=== PATIENT | male | born 1955 | race Two or more races ===

== ENCOUNTER → 2020-01-26 14:44 | Outpatient (BNV) | payer MEDICARE, MEDICAID, SELFPAY | PROVIDERS: PCP Internal Medicine; Visit Provider Internal Medicine | DX: D51.9 Vitamin B12 deficiency anemia, unspecified (principal); E87.6 Hypokalemia; E83.52 Hypercalcemia | CPT/HCPCS: 99213; 99214; G2211 ==

== ENCOUNTER 2021-02-03 09:31 | Outpatient (REF) | payer MEDICARE, MEDICAID, SELFPAY ==
--- NOTE | ~2021-02-03 | CT_ITS ---
EXAMINATION: CT ANGIOGRAM CHEST CLINICAL INFORMATION: Follow-up thoracic aorta aneurysm. COMPARISON: CT angiography chest from 02/06/2018 and 02/17/2019. TECHNIQUE: Multiple axial images were obtained through the chest after the administration of 70 mL of Omnipaque 350 intravenous contrast. Extensive vascular post-processing including two-dimensional and three-dimensional reformatted images were created and reviewed on an independent workstation under concurrent physician supervision and then uploaded into the electronic picture archive. This CT examination was performed using dose optimization techniques as appropriate, variously including the following: *Automated exposure control *Adjustment of mA and/or kV according to patient size (this includes techniques or standardized protocols for targeted exams where dose is matched to indication/reason for exam; i.e. extremities or head) *Use of iterative reconstruction technique DLP: 113 mGy-cm FINDINGS: LUNGS AND PLEURA: Trachea and central airways are widely patent and normal in caliber. Solid noncalcified 0.3 cm nodules of the right lower lobe are unchanged (images 263 and 269, series 7). A stable 0.3 cm wide nodular focus along the right major fissure is likely a perifissural lymph node (image 259, series 7). A new cluster of 0.3 to 0.4 cm nodules in the left upper lobe has subtle surrounding haziness; findings are likely sequela of infectious or noninfectious inflammation of small airways/bronchiolitis (images 157-163, series 7). No interval development of a suspicious lung nodule or mass. No interstitial lung disease, consolidation or pleural effusion. HEART AND PULMONARY ARTERIES: The heart size is normal. Mild to moderate atherosclerotic calcification of coronary arteries. No pericardial effusion. Pulmonary arteries are unremarkable. THORACIC AORTA: There is atherosclerotic calcification of the aorta. No intramural hematoma or dissection. The great vessels arising from the top of the aortic arch are widely patent. By my measurements, the thoracic aorta remains unchanged in size compared to 02/17/2019. The following aortic measurements are obtained: Sinus of Valsalva: 3.8 cm Sinotubular junction: 3.5 cm Ascending aorta: 4 cm transverse, 3.9 cm AP Mid aortic arch: 2.8 cm Proximal descending aorta: 3.9 cm Distal descending aorta: 2.5 cm MEDIASTINUM AND LOWER NECK: Esophagus is unremarkable. No mediastinal mass. Thyroid gland is slightly heterogeneous. No evidence of a clinically significant thyroid nodule. LYMPHATICS: No axillary or internal mammary lymphadenopathy. No pathologic sized mediastinal or hilar lymph nodes. UPPER ABDOMEN: The visualized abdominal aorta is normal in caliber. The common hepatic artery has an independent origin separate from the celiac trunk. Adrenal glands are normal. Gallbladder contains several small calcified stones. SKELETAL AND CHEST WALL: No chest wall mass. No suspicious osseous lesion. No acute findings in the degenerated thoracic spine. CT/CT angio chest aorta IMPRESSION: * The ascending thoracic aorta is unchanged in size (4 cm diameter). 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 No interval aortic enlargement compared to 02/17/2019. * There are stable 0.3 cm nodules in the left lower lobe. A new small cluster of left upper lobe nodules is likely secondary to bronchiolitis. No interval development of a suspicious nodule, mass or lymphadenopathy. Based on Fleischner Society guidelines, chest CT follow-up is not required in a low-risk patient and is considered optional at 12 months in a high risk patient. * Cholelithiasis.
[2021-02-03] MEDS: iohexoL 350 MG/ML 100 ML INFUS..BTL IV (10:46)
== END 2021-02-03 09:32 | disposition home or self-care (01) ==
LOC: HO.CT 09:31
PROVIDERS: Visit Provider Internal Medicine
DX: I71.2 Thoracic aortic aneurysm, without rupture (principal); R91.8 Other nonspecific abnormal finding of lung field; K80.20 Calculus of gallbladder without cholecystitis without obstruction
CPT/HCPCS: 71275; Q9967

== ENCOUNTER 2022-03-08 10:14 | Outpatient (REF) | payer MEDICARE, MEDICAID, SELFPAY ==
--- NOTE | ~2022-03-08 | XR_ITS ---
EXAMINATION: XR HAND, RIGHT CLINICAL INFORMATION: Swelling of right middle finger COMPARISON: None TECHNIQUE: PA, lateral, and oblique views of the right hand. FINDINGS: There is loss of PIP and DIP joint space without periarticular spurring of bony erosive changes. The MCP and intercarpal joint spaces are maintained normal. There is a negative ulnar variance. Minimal soft tissue swelling PIP joints second through fifth digit and entire third digit. No acute fracture or dislocation. XR/XR hand RT min 3V IMPRESSION: 1. Minimal soft tissue swelling PIP joints second through fifth digit. No visible acute fracture or dislocation seen. 2. Mild degenerative changes PIP and DIP joints.
== END 2022-03-08 10:15 | disposition home or self-care (01) ==
LOC: HO.XRAY 10:14
PROVIDERS: PCP Internal Medicine; Visit Provider Emergency Medicine
DX: M79.89 Other specified soft tissue disorders (principal)
CPT/HCPCS: 73130

== ENCOUNTER 2022-06-02 07:12 | Outpatient (REF) | payer MEDICARE, MEDICAID, SELFPAY ==
--- NOTE | ~2022-06-02 | CT_ITS ---
EXAMINATION: CT ANGIOGRAM CHEST CLINICAL INFORMATION: Ascending aortic aneurysm. COMPARISON: CTA chest 02/17/2019. TECHNIQUE: Multiple axial images were obtained through the chest after the administration of 50 mL of Omnipaque 350 intravenous contrast. 3D POSTPROCESSIN-D MIP images were processed from the initial data set by the charge histotechnologist on the technologist workstation under concurrent physician supervision. This CT examination was performed using dose optimization techniques as appropriate, variously including the following: *Automated exposure control *Adjustment of mA and/or kV according to patient size (this includes techniques or standardized protocols for targeted exams where dose is matched to indication/reason for exam; i.e. extremities or head) *Use of iterative reconstruction technique DLP: 124 mGy-cm FINDINGS: The ascending aorta measures maximum of 4.1 x 4.0 cm, stable. The aortic arch measures a maximum of 2.6 x 2.9 cm, stable. The proximal descending aorta at the level of the ductus measures 3.9 x 3.8 cm, stable. The distal descending aorta and proximal abdominal aorta are normal in caliber. Three-vessel aortic arch with mild atherosclerosis at the origin of the left subclavian artery. There is mild atherosclerosis in the descending aorta and upper abdominal aorta. The included gastrosplenic and hepatic artery origins are patent. The SMA origin is patent. The bilateral renal artery origins are patent. No suspicious pulmonary nodules. No mediastinal adenopathy. No pericardial effusion. The upper abdomen is unremarkable. Degenerative changes in the spine. No suspicious osseous lesions. CT/CT angio chest aorta IMPRESSION: Stable ascending aortic aneurysm measuring 4.1 x 4.0 cm. Stable descending aortic aneurysm measuring 3.9 x 3.8 cm. Fleischner guidelines were followed.
[2022-06-02] MEDS: iohexoL 350 MG/ML 100 ML INFUS..BTL IV (08:19)
[2022-06-02 10:27] LABS: Creatinine POC 0.5 mg/dL (0.5-1.4); GFR POC > 60
== END 2022-06-02 07:13 | disposition home or self-care (01) ==
LOC: HO.CT 07:12
PROVIDERS: Visit Provider Internal Medicine
DX: I71.21 Aneurysm of the ascending aorta, without rupture (principal)
CPT/HCPCS: 71275; 82565; Q9967

== ENCOUNTER 2023-06-19 13:21 | Outpatient (REF) | payer MEDICARE, MEDICAID, SELFPAY ==
[2023-06-19 17:11] LABS: Alanine Aminotransferase 11 U/L (0-40); Albumin Level 4.3 g/dL (3.5-5.0); Alkaline Phosphatase 38 U/L (39-117); Anion Gap 16 (12-20); Aspartate Amino Transferase 13 U/L (5-37); Bilirubin Direct 0.4 mg/dL (0.0-0.5); Bilirubin Total 1.3 mg/dL (0.0-1.0); Blood Urea Nitrogen 10 mg/dL (9-16); Calcium 9.8 mg/dL (8.4-10.2); Carbon Dioxide 31 mmol/L (22-29); Chloride 96 mmol/L (96-108); Cholesterol 127 mg/dL (<200); Estimated Glomerular Filt Rate > 60; Glucose Random 175 mg/dL (60-115); HDL Cholesterol 30 mg/dL (>40); LDL Cholesterol Calculated 66 mg/dL (<100); Potassium 3.8 mmol/L (3.3-5.1); Sodium 139 mmol/L (135-145); Total Protein 7.3 g/dL (6.5-8.0); Triglycerides 158 mg/dL (<150)
[2023-06-19 17:52] LABS: Prostate Specific Antigen 12.57 ng/mL (<0.05-4.0)
[2023-06-19 19:44] LABS: Creatinine Urine 137.18 mg/dL; Microalbum/Creatinine Ratio Ur 15.3 ug/mg cr (<30)
[2023-06-19 19:44] LABS: Reflex LDLD? No
== END 2023-06-19 13:22 | disposition home or self-care (01) ==
LOC: HO.HHCL 13:21
PROVIDERS: Visit Provider Internal Medicine
DX: Z00.00 Encounter for general adult medical examination without abnormal findings (principal); Z12.5 Encounter for screening for malignant neoplasm of prostate; E11.9 Type 2 diabetes mellitus without complications; I10 Essential (primary) hypertension
CPT/HCPCS: 36415; 80048; 80061; 80076; 82043; 82570; 84153

== ENCOUNTER 2023-07-24 10:03 | Outpatient (AMB) | payer MEDICARE, MEDICAID, SELFPAY ==
--- NOTE | 2023-07-24 11:38 | MHC.OFFVIS ---
Intake Visit Reasons: Elevated PSA Intake Note: New Patient is present for Elevated PSA Director Of Estate Required: Yes Director Of Estate Language: Macedonian Allergies No Known Allergies Allergy (Verified 09/06/23 10:25) HPI Comments Details: Paul is a pleasant Macedonian-speaking male. He is a patient of Dr. Grimes. He is seen for the following urologic conditions - elevated PSA Macedonian translation provided by qualified electromedical service engineer Elevated PSA 07/05 12.5 Suggest repeat PSA and bladder ultrasound PFS Medical History Thoracic aortic aneurysm (TAA) Depression Hyperlipemia HTN (hypertension) Diabetes Anemia Family History Sister Breast cancer Social History Household Members: None Housing: Apartment Are you a primary day care home provider to a significant other at home: No Do you presently have visiting nurse or other home services: No Alcohol intake: former Patient Tobacco Use Status: Never used Tobacco service: No Current occupational status: disabled Review of Systems Const Denies chills and Denies fever(s) Card Reports no additional complaints and Denies syncope Resp Denies cough GI Denies abdominal pain and Denies heartburn Reports as per HPI and Denies change in libido Neuro Denies syncope Psych Denies change in libido Endo Denies change in libido Physical Exam Const General: cooperative, healthy appearing, comfortable and no acute distress Orientation/consciousness: patient oriented x3 HEENT Face and sinus: Yes normal facial exam Mouth: moist mucous membranes Neck Neck: Yes normal visual inspection, Yes full ROM and Yes trachea midline Chest Chest palpation & inspection: normal inspection of the chest Resp Effort & Inspection: normal respiratory effort, able to speak in complete sentences and no respiratory distress GI Inspection: Yes normal to inspection Back/Spine/Pelvis Cervical Spine: normal cervical lordosis Thoracic/Lumbar Spine: thoracic and lumbar spine normal to inspection Skin General skin exam: no rashes or lesions noted Neuro General: patient oriented x3, gait normal, tone normal and moves all extremities Extrem General: Yes normal to inspection and Yes capillary refill normal Assessment & Plan Assessment & Plan (1) Elevated PSA: Code(s): R97.20 - Elevated prostate specific antigen [PSA] Category: Medical Plan Bladder ultrasound Repeat PSA Start finasteride Orders: Orders US bladder 07/24/23 R39.12 - Poor urinary stream, R97.20 - Elevated prostate specific antigen [PSA] PSA,Total (Free>4and<10) 07/27/23 R97.20 - Elevated prostate specific antigen [PSA] Medications: New finasteride 5 mg PO DAILY 90 tabs 1RF 90 days R97.20 - Elevated prostate specific antigen [PSA], N40.1 - Benign prostatic hyperplasia with lower urinary tract symptoms, N13.8 - Other obstructive and reflux uropathy, R33.9 - Retention of urine, unspecified Patient Instructions: Imaging studies, laboratory and physical exam results were discussed and reviewed in detail. No major barriers to patient understanding were identified. An opportunity to ask questions regarding the treatment plan was provided. All questions were answered. The patient expressed understanding and agreement with the above treatment plan. The patient is aware they should contact our office by phone for worsening of their current condition or the appearance of new urologic symptoms. Compliance is encouraged with any medications and followup testing that is ordered. It is a privilege to participate in the urologic care of your patient. If you have any questions or concerns regarding treatment for the above conditions, or other urologic issues, please do not hesitate to contact me. The office telephone contact is [phone]. This note is constructed using voice recognition software. While every effort has been made to ensure accuracy compensation associate errors may have been included. Yours sincerely, Dr Lm Rico MD, MON[facility] - Urology Providers of Expert, Compassionate Care for the Genitourinary System Coding Level of Care Code New Pt Level 4 (02807) Diagnoses Elevated PSA R97.20
== END 2023-07-24 12:14 | disposition home or self-care (01) ==
PROVIDERS: PCP Internal Medicine; Visit Provider Urology
DX: R97.20 Elevated prostate specific antigen [PSA] (principal)
CPT/HCPCS: 99204

== ENCOUNTER → 2023-07-24 10:03 | Outpatient (BNVA) | payer MEDICARE, MEDICAID, SELFPAY | PROVIDERS: PCP Internal Medicine; Visit Provider Urology | DX: R97.20 Elevated prostate specific antigen [PSA] (principal) | CPT/HCPCS: 99202 ==

== ENCOUNTER 2023-07-27 10:08 | Outpatient (REF) | payer MEDICARE, MEDICAID, SELFPAY | END 2023-07-27 10:09 | disposition home or self-care (01) | LOC: HO.10HDL 10:08 | PROVIDERS: Visit Provider Urology | DX: R97.20 Elevated prostate specific antigen [PSA] (principal); Z12.5 Encounter for screening for malignant neoplasm of prostate | CPT/HCPCS: 36415; 84153 ==

== ENCOUNTER 2023-08-23 10:31 | Outpatient (REF) | payer MEDICARE, MEDICAID, SELFPAY ==
--- NOTE | ~2023-08-23 | US_ITS ---
EXAMINATION: US PELVIS LIMITED (BLADDER) CLINICAL INFORMATION: Poor urinary stream. COMPARISON: None available. TECHNIQUE: Real-time imaging of the bladder. FINDINGS: BLADDER: Well distended and normal. Bilateral ureteral jets are demonstrated. Prevoid bladder volume is 174 mL. Postvoid bladder volume is 71.3 mL. The prostate volume is normal at 16.8 mL. US/US bladder IMPRESSION: Normal-appearing bladder and normal volume prostate with 71.3 mL postvoid residual.
== END 2023-08-23 10:32 | disposition home or self-care (01) ==
LOC: HO.US 10:31
PROVIDERS: PCP Internal Medicine; Visit Provider Urology
DX: R39.12 Poor urinary stream (principal); R97.20 Elevated prostate specific antigen [PSA]
CPT/HCPCS: 76857

== ENCOUNTER 2023-09-06 10:06 | Outpatient (AMB) | payer MEDICARE, MEDICAID, SELFPAY ==
--- NOTE | 2023-09-06 10:23 | A.OFFVIS_ITS ---
Intake Visit Reasons: 6W PSA/US/PVR(Set) Elevated Intake Note: Patient is present for 6w PSA/US/PVR Urology Medication:FINASTERIDE,VITAMIN B12 Antibiotic Allergy:NONE Blood Thinner:ASPIRIN Button Machine Operator Required: Yes Allergies No Known Allergies Allergy (Verified 09/06/23 10:25) HPI Comments Details: Paul is a pleasant Polish-speaking male. He is a patient of Dr. Grimes. He is seen for the following urologic conditions - elevated PSA Polish translation provided by qualified medical language specialist Discussed repeat findings Recommend prostate biopsy Elevated PSA 07/05 12.5 Repeat PSA 15.8 [facility] Medical History Thoracic aortic aneurysm (TAA) Depression Hyperlipemia HTN (hypertension) Diabetes Anemia Family History Sister Breast cancer Social History Household Members: None Housing: Apartment Are you a primary human services care specialist to a significant other at home: No Do you presently have visiting nurse or other home services: No Alcohol intake: former Patient Tobacco Use Status: Never used Tobacco service: No Current occupational status: disabled Review of Systems Const Denies chills and Denies fever(s) Card Reports no additional complaints and Denies syncope Resp Denies cough GI Denies abdominal pain and Denies heartburn Reports as per HPI and Denies change in libido Neuro Denies syncope Psych Denies change in libido Endo Denies change in libido Physical Exam Const General: cooperative, healthy appearing, comfortable and no acute distress Orientation/consciousness: patient oriented x3 HEENT Face and sinus: Yes normal facial exam Mouth: moist mucous membranes Neck Neck: Yes normal visual inspection, Yes full ROM and Yes trachea midline Chest Chest palpation & inspection: normal inspection of the chest Resp Effort & Inspection: normal respiratory effort, able to speak in complete sentences and no respiratory distress GI Inspection: Yes normal to inspection Back/Spine/Pelvis Cervical Spine: normal cervical lordosis Thoracic/Lumbar Spine: thoracic and lumbar spine normal to inspection Skin General skin exam: no rashes or lesions noted Neuro General: patient oriented x3, gait normal, tone normal and moves all extremities Extrem General: Yes normal to inspection and Yes capillary refill normal Results AMB Urinalysis, Automated UA Leukoctes 0 Kaiden/uL Last Edit by ZAC Tate on 09/06/23 11:13 UA Nitrite Negative Last Edit [facility] on 09/06/23 11:13 UA Urobilinogen 0.2 mg/dL Last Edit by Jim Rae [facility] on 09/06/23 11:1 3 UA Protein 15 mg/dL Last Edit by Jim Rae [facility] on 09/06/23 11:13 UA pH 8.0 Last Edit by Jim Rae [facility] on 09/06/23 11:13 UA Blood 0 Steve/uL Last Edit by Jim Rae [facility] on 09/06/23 11:13 UA Specific [place] 1.005 Last Edit by Jim Rae [facility] on 09/06/23 11: 13 UA Ketone Negative Last Edit by Jim Rae [facility] on 09/06/23 11:13 UA Bilirubin 0 mg/dL Last Edit by Jim Rae [facility] on 09/06/23 11:13 UA Glucose 0 mg/dL Last Edit by Jim Rae [facility] on 09/06/23 11:13 Results Reviewed Results Reviewed: Laboratory Last Values Urine pH (Auto) 8.0 09/06/23 11:12 Specific [place] (Auto) 1.005 09/06/23 11:12 Urine Protein (Auto) 15 mg/dL 09/06/23 11:12 Glucose (UA)(Auto) 0 mg/dL 09/06/23 11:12 Urine Ketones (Auto) Negative 09/06/23 11:12 Urine Blood (Auto) 0 Steve/uL 09/06/23 11:12 Urine Nitrite (Auto) Negative 09/06/23 11:12 Urine Bilirubin (Auto) 0 mg/dL 09/06/23 11:12 Urine Urobilinogen (Auto) 0.2 mg/dL 09/06/23 11:12 Leukocyte Esterase (Auto) 0 [place]/uL 09/06/23 11:12 Assessment & Plan Assessment & Plan (1) Elevated PSA: Code(s): R97.20 - Elevated prostate specific antigen [PSA] Category: Medical Plan Risks and benefits regarding trans rectal ultrasound with prostate biopsy were discussed. Options of continued surveillance, no treatment and biopsy were offered. The risks include but are not limited to, urinary tract infection, sepsis, difficulty urinating, bleeding into the rectum or bladder that requires intervention and transfusion,and failure to diagnose prostate cancer. The patient understands the options and the risks involved. They wish to proceed. Printed information was provided to ensure he remains off anticoagulation for the appropriate length of time. He may require cardiology or PCP clearance. An antibiotic will be administered prior to, and following the procedure Orders: Orders AMB Urinalysis Automated Today Z13.9 - Encounter for screening, unspecified Medications: New levofloxacin take 1 tablet day before procedure, 1 tablet day of procedure and 1 tablet day after procedure 500 mg PO daily 3 days 3 tabs 0RF R97.20 - Elevated prostate specific antigen [PSA] Patient Instructions: Imaging studies, laboratory and physical exam results were discussed and reviewed in detail. No major barriers to patient understanding were identified. An opportunity to ask questions regarding the treatment plan was provided. All questions were answered. The patient expressed understanding and agreement with the above treatment plan. The patient is aware they should contact our office by phone for worsening of their current condition or the appearance of new urologic symptoms. Compliance is encouraged with any medications and followup testing that is ordered. It is a privilege to participate in the urologic care of your patient. If you have any questions or concerns regarding treatment for the above conditions, or other urologic issues, please do not hesitate to contact me. The office telephone contact is [phone]. This note is constructed using voice recognition software. While every effort has been made to ensure accuracy insurance underwriter sales errors may have been included. Yours sincerely, Dr Lm Rico MD, MONI[facility] - Urology Providers of Expert, Compassionate Care for the Genitourinary System Coding Level of Care Code Est Pt Level 4 (63891) Diagnoses Elevated PSA R97.20
== END 2023-09-06 11:26 | disposition home or self-care (01) ==
PROVIDERS: PCP Internal Medicine; Visit Provider Urology
DX: R97.20 Elevated prostate specific antigen [PSA] (principal); Z13.9 Encounter for screening, unspecified
CPT/HCPCS: 99214

== ENCOUNTER → 2023-09-06 10:06 | Outpatient (BNVA) | payer MEDICARE, MEDICAID, SELFPAY | PROVIDERS: PCP Internal Medicine; Visit Provider Urology | DX: R97.20 Elevated prostate specific antigen [PSA] (principal) | CPT/HCPCS: 81003; 99212 ==

== ENCOUNTER 2023-10-11 06:45 | Outpatient (REF) | payer MEDICARE, MEDICAID, SELFPAY ==
--- NOTE | 2023-10-11 08:31 | P.OP_ITS ---
Operative Note Operative Note Date of Service: 10/11/23 Narrative: Preoperative diagnosis: Elevated PSA Postoperative diagnosis: Elevated PSA Procedure: 1. transrectal ultrasound measurement of prostate 2. transrectal ultrasound-guided pudendal nerve block 3. transrectal ultrasound-guided prostate biopsy 12 core Surgeon: Dr. Lm Rico Anesthetic: 10cc 1% lidocaine Indications for procedure: Elevated PSA 16 Counselling: Technical aspects, risks and benefits of proposed procedure were discussed in full. All questions have been answered, written consent has been obtained and patient agrees to proceed. Procedure: The patient was brought into the procedure area and placed in a left lateral decubitus position. Patient identity confirmed. Perioperative antibiotics confirmed. Safety pause time out performed. JEROME was performed to dilate rectal sphincter Iodine 10cc with 60 cc gel was placed per rectum to reduce infection risk using a catheter tip syringe. 8 Hz [place] rectal end-fire ultrasound probe was placed transrectally without difficulty. The prostate was visualized. Seminal vesicles were normal. Prostate margins were clearly demarcated. Bladder was seen superiorly. No cystic structures were noted Calcifications were noted at the surgical margin The prostate was otherwise heterogenous in nature - clear demarcation with peripheral zone The prostate was measured in 3 dimensions Prostatic Width: 4.3 cm Prostatic Height: 3.6 cm Urethral Length: 4.2 cm Total volume equals : 35 ml An ultrasound-guided pudendal nerve block was performed using a 22 gauge spinal needle in the sagittal plane. 4 cc of 1% lidocaine placed at the junction of each seminal vesicle and 2 cc placed at the apex of the prostate. A 12 core biopsy was performed with 6 cores each side using an 18 gauge prostate biopsy gun. Two cores each were taken at the prostate apex, mid and base on each side. Cores were spaced between lateral and medial aspects. Each core was examined as placed on specimen foam as part of senior quality control inspector to ensure a minimum 1 cm of length and minimal discontinuity. He tolerated the procedure well with minimal rectal bleeding. Blood pressure remained stable following procedure. He was able to ambulate to bathroom after 5 minutes. Printed instructions regarding antibiotic use and common adverse events from the procedure such as low-grade temperature, potential infection and bleeding were given. He understands to call the office or go to an emergency room should any of these events arise. Pathology: 12 core prostate biopsy. CPT code 01493: Transrectal ultrasound; this is a diagnostic test for evaluation of the prostate and surrounding structures, looking for abnormalities or suspicious areas worrisome for cancer CPT code 03319: Biopsy, prostate; needle or punch, single or multiple, any approach CPT code 37336: Ultrasonic guidance for needle placement (eg, biopsy, aspiration, injection, localization device), imaging supervision and interpretation
[2023-10-11] MEDS: Lidocaine HCl 1 % 20 ML VIAL 10 ML SUBCUT (08:51)
== END 2023-10-11 06:46 | disposition home or self-care (01) ==
LOC: HO.US 06:45
PROVIDERS: PCP Internal Medicine; Visit Provider Urology
DX: R97.20 Elevated prostate specific antigen [PSA] (principal)
CPT/HCPCS: 55700; 76942; 88305; 88344

== ENCOUNTER → 2023-10-11 06:45 | Outpatient (BNV) | payer MEDICARE, MEDICAID, SELFPAY | PROVIDERS: PCP Internal Medicine; Visit Provider Urology | DX: R97.20 Elevated prostate specific antigen [PSA] (principal) | CPT/HCPCS: 55700; 76872; 76942 ==

== ENCOUNTER 2023-10-25 12:01 | Outpatient (AMB) | payer MEDICARE, MEDICAID, SELFPAY ==
--- NOTE | 2023-10-25 12:31 | MHC.OFFVIS ---
Intake Visit Reasons: Prostate biopsy results Intake Note: Patient is present for Biopsy results Urology Med: Finasteride Antibiotic Allergy: None Blood Thinner: None Rail Transportation Operator Required: Yes Rail Transportation Operator Language: Czech Accompanied by: Self / Same As Patient Allergies No Known Allergies Allergy (Verified 10/25/23 12:33) Medication List - Last Reconciled 10/25/23 by Lm Rico MD amlodipine 1 tab PO DAILY ascorbic acid (vitamin C) (Vitamin C) 1 tab PO DAILY aspirin 1 tab PO DAILY carvedilol 1 tab PO BID cyanocobalamin (vitamin B-12) (Vitamin B-12) 1,000 mcg PO DAILY finasteride 5 mg PO DAILY 90 days glipizide ER 1 tab PO QAM hydrochlorothiazide 1 tab PO DAILY lisinopril 1 tab PO DAILY metformin 1 tab PO BID mineral oil-hydrophil petrolat (DermaPhor topical ointment) 1 appl topical DIRECTED pantoprazole 1 tab PO DAILY peg [id number] 1-0.2-0.2 % (Artificial Tears ([id number])) 1 drp ophthalmic (eye) TID-QID pioglitazone 1 tab PO DAILY pravastatin 1 tab PO DAILY sertraline 1 tab PO QAM trazodone 1 tab PO BEDTIME PRN HPI Comments Details: Paul is a pleasant Czech-speaking male. He is a patient of Dr. Grimes. He is seen for the following urologic conditions - elevated PSA Czech translation provided by qualified director of medical review Here for discussion of biopsy results Biopsy negative Continue finasteride Six-month follow-up PSA Elevated PSA 07/05 12.5 Repeat PSA 15.8 Prostate biopsy - 10/05 acute and chronic inflammation [facility] Medical History Thoracic aortic aneurysm (TAA) Depression Hyperlipemia HTN (hypertension) Diabetes Anemia Family History Sister Breast cancer Social History Household Members: None Housing: Apartment Are you a primary resident care aide to a significant other at home: No Do you presently have visiting nurse or other home services: No Alcohol intake: former Patient Tobacco Use Status: Never used Tobacco service: No Current occupational status: disabled Review of Systems Const Denies chills and Denies fever(s) Card Reports no additional complaints and Denies syncope Resp Denies cough GI Denies abdominal pain and Denies heartburn Reports as per HPI and Denies change in libido Neuro Denies syncope Psych Denies change in libido Endo Denies change in libido Physical Exam Const General: cooperative, healthy appearing, comfortable and no acute distress Orientation/consciousness: patient oriented x3 HEENT Face and sinus: Yes normal facial exam Mouth: moist mucous membranes Neck Neck: Yes normal visual inspection, Yes full ROM and Yes trachea midline Chest Chest palpation & inspection: normal inspection of the chest Resp Effort & Inspection: normal respiratory effort, able to speak in complete sentences and no respiratory distress GI Inspection: Yes normal to inspection Back/Spine/Pelvis Cervical Spine: normal cervical lordosis Thoracic/Lumbar Spine: thoracic and lumbar spine normal to inspection Skin General skin exam: no rashes or lesions noted Neuro General: patient oriented x3, gait normal, tone normal and moves all extremities Extrem General: Yes normal to inspection and Yes capillary refill normal Assessment & Plan Assessment & Plan (1) Elevated PSA: Code(s): R97.20 - Elevated prostate specific antigen [PSA] Category: Medical Plan Six-month follow-up PSA Orders: Orders PSA,Total (Free>4and<10) 6 Months R97.20 - Elevated prostate specific antigen [PSA] Patient Instructions: Imaging studies, laboratory and physical exam results were discussed and reviewed in detail. No major barriers to patient understanding were identified. An opportunity to ask questions regarding the treatment plan was provided. All questions were answered. The patient expressed understanding and agreement with the above treatment plan. The patient is aware they should contact our office by phone for worsening of their current condition or the appearance of new urologic symptoms. Compliance is encouraged with any medications and followup testing that is ordered. It is a privilege to participate in the urologic care of your patient. If you have any questions or concerns regarding treatment for the above conditions, or other urologic issues, please do not hesitate to contact me. The office telephone contact is [phone]. This note is constructed using voice recognition software. While every effort has been made to ensure accuracy customer solutions teammate errors may have been included. Yours sincerely, Dr Lm Rico MD, [facility] - Urology Providers of Expert, Compassionate Care for the Genitourinary System Coding Level of Care Code Est Pt Level 3 (48173) Diagnoses Elevated PSA R97.20
== END 2023-10-25 14:29 | disposition home or self-care (01) ==
PROVIDERS: PCP Internal Medicine; Visit Provider Urology
DX: R97.20 Elevated prostate specific antigen [PSA] (principal)
CPT/HCPCS: 99213

== ENCOUNTER → 2023-10-25 12:01 | Outpatient (BNVA) | payer MEDICARE, MEDICAID, SELFPAY | PROVIDERS: PCP Internal Medicine; Visit Provider Urology | DX: R97.20 Elevated prostate specific antigen [PSA] (principal); Z71.2 Person consulting for explanation of examination or test findings | CPT/HCPCS: 99212 ==

== ENCOUNTER → 2024-02-22 12:09 | Outpatient (REF) | payer MEDICARE, MEDICAID, SELFPAY ==
--- NOTE | 2024-02-22 12:15 | CA_ITS ---
Transthoracic Echocardiogram Patient (Last, First, Middle): Paul Alonso, Gender: Male Date of : 1955 Age: 68 Procedure Date: 02/22/2024 Procedure Type: Transthoracic Echocardiogram Location: OP Height: 160.02 cm Weight: 57.61 kg BSA: 1.59 m2 Heart Rate: 72 bpm BP: 145 / 82 mmHg Chiseler Head: SB Referring MD: Balaji Sanderson MD Symptoms: R55 SYNCOPE Study Quality: Adequate ECG Rhythm: Sinus Conclusions: - The left ventricular systolic function is normal. The calculated ejection fraction is 66% by biplane method. - No obvious valvular pathology seen on this study. - There is mild dilatation of the ascending aorta measuring 4.20 cm. Findings Left Ventricle Normal left ventricular cavity size. There is normal left ventricular wall thickness. The left ventricular systolic function is normal. The calculated ejection fraction is 66% by biplane method. There is no evidence of regional wall motion abnormalities. Diastolic function is normal for age. Right Ventricle Mildly increased right ventricular cavity size. There is normal right ventricular systolic function. Atria Both atria are normal in size. Aortic Valve There is a normal trileaflet aortic valve. There is no aortic valve stenosis. Trace to mild aortic regurgitation. Mitral Valve The mitral valve appears normal. There is no mitral valve regurgitation. There is no mitral valve stenosis. Pulmonic Valve The pulmonic valve is likely normal. Tricuspid Valve There is trace tricuspid valve regurgitation. There is no evidence of pulmonary hypertension. Great Vessels There is mild dilatation of the ascending aorta measuring 4.20 cm. Venous The inferior vena cava is normal in size and collapses greater than 50% with inspiration. Pericardium/Pleural There is no evidence of pericardial effusion. Prior Study Comparison No prior study available for comparison. Recommendations, Care & Conclusions No obvious valvular pathology seen on this study. Measurements 2D Linear Measurements IVSd: 0.76 0.6-0.9/0.6-1.0 cm LVIDd: 4.71 3.9-5.3/4.2-5.9 cm LVIDd Index: 2.96 2.4-3.2/2.2-3.1 cm/m2 LVIDs: 3.22 2.0-3.6 cm LVPWd: 0.62 0.7-1.1 cm LA Diam: 2.60 2.7-3.8/3.0-4.0 cm LAIDs Index: 1.64 1.5-2.3 cm/m2 LV Mass: 126.12 67-162/88-224 g LV Mass Index: 79.32 43-95/49-115 g/m2 LVOT Diam: 2.10 3.0+(-)1.3 cm 2D Systolic Function EF 4C: 67.00 >55% EF 2C: 61.80 >55% EF BiP: 65.60 >55% Mitral Valve MV Pk E: 0.69 MV PK A: 0.78 MV Decel Time: 234.00 E/A: 0.90 E'Lateral: 6.96 E'Medial: 4.90 E/E' Med: 14.00 E/E' Lat: 9.90 PHT: 68.00 MVA PHT: 3.24 Decel Pacific: 2.93 Aortic Valve AoV Pk Arpan: 1.39 AoV Pk Grad: 8.00 COURT: 2.18 AI Pk Arpan: 3.19 AI Pacific: 1.46 LVOT LVOT Pk Arpan: 0.92 LVOT Mn Arpan: 0.59 LVOT VTI: 0.20 LVOT Pk Grad: 3.00 LVOT Mn Grad: 2.00 LVOT Diam: 2.10 LVOT Area: 3.46 Diastolic Function MV Pk E: 0.69 MV Pk A: 0.78 E/A: 0.90 E'Medial: 4.90 E/E' Med: 14.00 E' Laterial: 6.96 E/E' Lat: 9.90 Right Ventricle TAPSE (mm): 26.90 TVS' Arpan: 13.50 Tricuspid Valve TR Pk Arpan: 2.32 TR Pk Grad: 22.00 RA Press: 3.00 RVSP: 25.00 Great Vessels Aorta Sinus of Valsalva: 3.80 2.0-3.5 cm Ao Asc: 4.20 2.1-3.4 cm Pulmonary Veins Pulm Vein S/D 1.40 Pulmonary Valve PV Pk Arpan: 0.73 Peak PV Grad: 2.00 Updated in Other Vendor System with Status of Final Larry Souza MD electronically signed on 02/23/2024 2:32:04 PM with status of Final
== END ==
LOC: HO.CARD 12:09
PROVIDERS: PCP Internal Medicine; Visit Provider Internal Medicine
DX: R55 Syncope and collapse (principal)
CPT/HCPCS: 93306

== ENCOUNTER → 2024-02-22 12:15 | Outpatient (BNV) | payer MEDICARE, MEDICAID, SELFPAY | PROVIDERS: PCP Internal Medicine; Visit Provider Internal Medicine | DX: I35.1 Nonrheumatic aortic (valve) insufficiency (principal) | CPT/HCPCS: 93306 ==

== ENCOUNTER 2024-04-03 08:20 | Outpatient (REF) | payer MEDICARE, MEDICAID, SELFPAY ==
--- NOTE | ~2024-04-03 | CT_ITS ---
CLINICAL HISTORY: ascending aorta aneurysm follow up CT angiography chest with contrast. 3D Postprocessing. Comparison: 06/02/2022 Findings: Stable heart size. Motion limits accurate evaluation of the aorta. No definite evidence of aortic dissection. Ectatic ascending thoracic aorta measuring up to 43 mm in the axial plane versus 42 mm previously. Ectatic distal aortic arch measuring up to 37 mm in width as before. Enlarged left main pulmonary artery measuring up to 30 mm in width as before. Query pulmonary arterial hypertension. Subcentimeter hypodense right thyroid lobe nodule not definitely seen on prior study. 34 x 35 mm right paratracheal mass versus conglomerate lymphadenopathy, new/mostly new from the prior study (on the prior exam there was s 10 x 8 mm node at this level). The lungs are clear. Gallstones. No acute fracture. IMPRESSION: 34 x 35 mm right paratracheal mass versus conglomerate lymphadenopathy, new/mostly new from the prior study (on the prior exam there was s 10 x 8 mm node at this level). Neoplastic process can not be excluded and appropriate workup recommended. Motion limits accurate evaluation of the aorta. No definite evidence of aortic dissection. Ectatic ascending thoracic aorta measuring up to 43 mm in the axial plane versus 42 mm previously. Ectatic distal aortic arch measuring up to 37 mm in width as before. Query pulmonary arterial hypertension. This document has been electronically signed by: Neelam Acevedo MD on 04/03/2024 12:33:34
--- NOTE | ~2024-04-03 | CT_ITS ---
CLINICAL HISTORY: syncope CT head without contrast Comparison: None Findings: No intra-axial mass, midline shift, hydrocephalus, or acute hemorrhage. Zrpi-ew-mexynbwh age-related cerebral hemispheric white matter changes. 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 Mild opacification of a few of the paranasal sinuses. The orbits are unremarkable. No skull fracture. IMPRESSION: 1. No acute intracranial findings. This document has been electronically signed by: Neelam Acevedo MD on 04/03/2024 10:11:03
--- OUTSIDE RECORDS SUMMARY | 2024-04-03 08:38 | XMS_ITS | Encounter Summary ---
Author Organization [employer] Address [address] [facility] 7t [place] [address] Care Team Providers Care Master Motorcycle Technician Name Role Phone Balaji Quinones MD Primary Care Provide r Kristi Giles PharmD Unavailable [phone] Reason for Visit * Reason Comments Med Refill Encounter Details Date Type Department Care Team (Late st Contact Info) Description 09/17/2022 Refill [facility] [address] [place] [address] Balaji Quinones MD [address] [place] [address] Dry eyes Social History Tobacco Use Types Packs/Day Years Used Date Smoking Tobacco: Never Smokeless Tobacco: Never Alcohol Use Standard Drinks/Week Comments Never 0 (1 standard drink = 0.6 oz pur e alcohol) Sex and Gender Information Value Date Recorded Sex Assigned at Male 12/12/2021 10:18 AM EDT Legal Sex Male 10:18 AM EDT Gender Identity Male 12/12/2021 10:18 AM EDT Sexual Orientation Don't know 12/12/2021 10 :18 AM EDT documented as of this encounter Plan of Treatment Upcoming Encounters Date Type Department Care Team (Late st Contact Info) Description 05/27/2024 1:00 PM EDT Office Visit [facility] [address] [place] [address] Kaci Meadows, OD [address] [place] [address] 06/26/2024 1:15 PM EDT Office Visit [facility] [address] [place] [address] Balaji Quinones MD [address] [place] [id number] documented as of this encounter Goals Goal Patient Goal Type Associated Problems Recent Progress Patient-Stated? Author Blood Pressure < 140/90 Blood Pressure 128/80(2024 11:18 AM EST) No Kristi Giles PharmD Note: Maintain BP less than 140/90 Record your blood pressure once per day Blood Pressure No Kristi Giles PharmD Note: Check BP daily Blood Pressure < 140/90 Blood Pressure Hypertension 128/80(2024 11:18 AM EST) No Kristi Giles PharmD Follow the DASH diet Diet No Kirsti Giles PharmD Note: Look for foods that are low sodium. documented as of this encounter Visit Diagnoses Diagnosis Dry eyes Unspecified tear film insufficiency documented in this encounter Care Teams Master Motorcycle Technician Relationship Specialty Start Date End Date Balaji Quinones MD [address] [place] [phone] PCP - General Internal Medicine 11/25/13 Kristi Giles PharmD [address] [place] [phone] Pharmacist Internal Medicine 01/30/22 documented as of this encounter
--- OUTSIDE RECORDS SUMMARY | 2024-04-03 08:38 | XMS_ITS | Encounter Summary ---
Author Organization [employer] Address [address] [facility] 7t [place] [address] Care Team Providers Care Directory Carrier Name Role Phone Balaji Quinones MD Primary Care Provide r Kristi Giles PharmD Unavailable [phone] Reason for Visit * Reason Comments Med Refill Encounter Details Date Type Department Care Team (Late Contact Info) Description 01/28/2023 Refill [facility] [address] [place] [address] Balaji Quinones MD [address] [place] [address] Social History Tobacco Use Types Packs/Day Years Used Date Smoking Tobacco: Never Passive Smoke Exposure: Never Smokeless Tobacco: Never Alcohol Use Standard Drinks/Week Comments Never 0 (1 standard drink = 0.6 oz pur e alcohol) Sex and Gender Information Value Date Recorded Sex Assigned at Male 12/12/2021 10:18 AM EDT Legal Sex Male 10:18 AM EDT Gender Identity Male 12/12/2021 10:18 AM EDT Sexual Orientation Don't know 12/12/2021 10 :18 AM EDT documented as of this encounter Miscellaneous Notes * Telephone Encounter - Mendoza Donnelly - 01/29/2023 12:27 PM EST Tc from patient requesting the status of Aspirin Low Dose 81 MG EC tablet would like to be filled by 02/02/23 due to the holidays documented in this encounter Plan of Treatment Upcoming Encounters Date Type Department Care Team (Late Contact Info) Description 05/27/2024 1:00 PM EDT Office Visit [facility] [address] [place] [address] Kaci Meadows, OD [address] [place] [address] 06/26/2024 1:15 PM EDT Office Visit [facility] [address] [place] [address] Balaji Quinones MD [address] [place] [address] documented as of this encounter Goals Goal [...] PharmD Follow the DASH diet Diet No Kristi Giles PharmD Note: Look for foods that are low sodium. documented as of this encounter Visit Diagnoses Not on filedocumented in this encounter Care Teams Directory Carrier Relationship Specialty Start Date End Date Balaji Quinones MD [address] [place] [address] PCP - General Internal Medicine 11/25/13 Kristi Giles PharmD [address] [place] [phone] Pharmacist Internal Medicine 01/30/22 documented as of this encounter
--- OUTSIDE RECORDS SUMMARY | 2024-04-03 08:38 | XMS_ITS | Encounter Summary ---
Author Organization [employer] Address [address] [facility] 7[address] [place] [address] Care Team Providers Care Personal Banker Name Role Phone Balaji Quinones MD Primary Care Provide r Kristi Giles PharmD Unavailable [phone] Reason for Visit * Reason Comments Med Refill Encounter Details Date Type Department Care Team ([facility] Contact Info) Description 04/17/2022 Refill [facility] [address] [place] [address] Brook Guerrero MD [address] [place] [address] Other chronic pain Social History Tobacco Use Types Packs/Day Years [...] Don't know 12/12/2021 10 :18 AM EDT COVID-19 Exposure Response Date Recorded In the last 10 days, have yo u been in contact with someone who was confirmed or suspected to have Coronavirus/COVID-19? No / Unsure 04/12/2022 1:50 PM EST documented as of this encounter Plan of Treatment Upcoming Encounters Date Type Department Care Team (Late Contact Info) Description 05/27/2024 1:00 PM EDT Office Visit [facility] OPT[facility] [address] [place] [address] Abdiel, Kaci, OD [address] [place] [address] 06/26/2024 1:15 PM EDT Office Visit [facility] [address] [place] [address] Balaji Quinones MD [address] [place] [address] documented as of this encounter Goals Goal Patient Goal Type Associated Problems Recent Progress Patient-Stated? Author Blood Pressure < 140/90 Blood Pressure 128/80(2024 11:18 AM EST) No Kristi Giles PharmD Note: Maintain BP less than 140/90 Record your blood pressure once per day Blood Pressure No Kristi Giles PharmD Note: Check BP daily Follow the DASH diet Diet No Kristi Giles PharmD Note: Look for foods that are low sodium. documented as of this encounter Visit Diagnoses Diagnosis Other chronic pain documented in this encounter Care Teams Personal Banker Relationship Specialty Start Date End Date Baljai Quinones MD [address] [place] [address] PCP - General Internal Medicine 11/25/13 Kristi Giles PharmD [address] [place] [address] Pharmacist Internal Medicine 01/30/22 documented as of this encounter
--- OUTSIDE RECORDS SUMMARY | 2024-04-03 08:38 | XMS_ITS | Encounter Summary ---
Author Organization [employer] Address [address] [facility] [address]t [place] [address] Care Team Providers Care Software Implementation Project Manager Name Role Phone Balaji Quinones MD Primary Care Provide r Kristi Giles PharmD Unavailable [phone] Reason for Visit * Reason Comments Med Refill Encounter Details Date Type Department Care Team (Late Contact Info) Description 05/11/2022 Refill [facility] [address] [place] [address] Balaji Quinones MD [address] [place] [address] Swelling of right middle finger Social History Tobacco Use Types Packs/Day Years [...] suspected to have Coronavirus/COVID-19? No / Unsure 05/11/2022 1:39 PM EDT documented as of this encounter Plan of Treatment Upcoming Encounters Date Type Department Care Team (Late Contact Info) Description 05/27/2024 1:00 PM EDT Office Visit [facility] OPTOMETRY [address] [place] [address] AbdielKaci yi, OD [address] [place] [address] 06/26/2024 1:15 PM EDT Office Visit [facility] MEDIC[facility] [address] [place], [place] [phone] Balaji Quinones MD [address] [place] [address] documented as of this encounter Goals Goal [...] as of this encounter Visit Diagnoses Diagnosis Swelling of right middle finger documented in this encounter Care Teams Software Implementation Project Manager Relationship Specialty Start Date End Date Balaji Quinones MD [address] [place] [address] [phone] PCP - General Internal Medicine 11/25/13 Kristi Giles PharmD [address] [place] [phone] Pharmacist Internal Medicine 01/30/22 documented as of this encounter
--- OUTSIDE RECORDS SUMMARY | 2024-04-03 08:38 | XMS_ITS | Encounter Summary ---
Author Organization [employer] Address [address] [facility] 7t [place] [address] Care Team Providers Care Torpedo Worker Name Role Phone Balaji Quinones MD Primary Care Provide r Kristi Giles PharmD Unavailable [phone] Encounter Details Date Type Department Care Team ([facility] Contact Info) Description 06/22/2022 Abstract [facility] [address] [place] [address] Balaji Quinones MD [address] [place] [address] Social History Tobacco Use Types Packs/Day Years [...] suspected to have Coronavirus/COVID-19? No / Unsure 06/13/2022 1:39 PM EDT documented as of this encounter Plan of Treatment Upcoming Encounters Date Type Department Care Team ([facility] Contact Info) Description 05/27/2024 1:00 PM EDT Office Visit [facility] OPT[facility] [address] [place] [address] Abdiel, Kaci, OD [address] [place] [address] 06/26/2024 1:15 PM EDT Office Visit [facility] MED[facility] [address] [place] [address] Balaji Quinones MD [address] [place] [address] documented as of this encounter Goals Goal [...] low sodium. documented as of this encounter Procedures Procedure Name Priority Date/Time Associated Diagnosis Comments COLONOSCOPY Routine 07/10/2017 documented in this encounter Results * Colonoscopy (07/10/2017) Colonoscopy Normal Normal 07/10/2017 Narrative Shikha Turner - 07/10/2017 3:47 PM EDT Recommended 10 year [place] ( [facility] [place] Historical Provider HEALTH MAINTENANCE Final Result documented in this encounter Visit Diagnoses Not on filedocumented in this encounter Care Teams Torpedo Worker Relationship Specialty Start Date End Date Balaji Quinones MD [address] [place] [address] PCP - General Internal Medicine 11/25/13 Kristi Giles PharmD [address] [place], [place] [phone] Pharmacist Internal Medicine 01/30/22 documented as of this encounter
--- OUTSIDE RECORDS SUMMARY | 2024-04-03 08:38 | XMS_ITS | Encounter Summary ---
Author Organization [employer] Address [address] [facility] 7t [place] [address] Care Team Providers Care Shelter Advocate Name Role Phone Balaji Quinones MD Primary Care Provide r Kristi Giles PharmD Unavailable [phone] Reason for Visit * Reason Comments Med Refill Encounter Details Date Type Department Care Team ([facility] st Contact Info) Description 03/14/2024 Refill [facility] [address] [place] [address] Balaji Quinones MD [address] [place] [address] Dry eyes Social History Tobacco Use Types Packs/Day Years Used Date Smoking Tobacco: Former Cigarettes Passive Smoke Exposure: Past Smokeless Tobacco: Never Alcohol Use Standard Drinks/Week Comments Never 0 (1 standard drink = 0.6 oz pur e alcohol) Depression Answer Date Recorded Patient Health Questionnaire-9 Score 1 04/19/2023 Patient Health Questionnaire-9 Score 1 04/19/2023 Last PHQ-9: Questionnaire Data Not on file 0 04/19/2023 Housing Stability Answer Date Recorded What is your housing situation today? I have karlie cope 04/19/[address] you li ve. Do you have problems with any of the following? None of the above 04/19/2023 Food Insecurity Answer Date Recorded Within the past 12 months, y ou worried that your food would run out before you got money to buy more: Never True 04/19/2023 Within the past 12 months,th e food you bought just didn't last and you didn't have enough money to get more: Never True 08/2023 Transportation Answer Date Recorded In the past 12 months, has l ack of transportation kept you from medical appts, meetings, work or from getting things needed for daily living? No 04/19/2023 Utilities Answer Date Recorded In the past 12 months, has t he electric, gas, oil or water company threatened to shut off services in your home? No 04/19/2023 Depression Answer Date Recorded Patient Health Questionnaire-2 Score 0 04/19/2023 Sex and Gender Information Value Date Recorded Sex Assigned at Male 12/12/2021 10:18 AM EDT Legal Sex Male 10:18 AM EDT Gender Identity Male 12/12/2021 10:18 AM EDT Sexual Orientation Don't know 12/12/2021 10 :18 AM EDT documented as of this encounter Plan of Treatment Upcoming Encounters Date Type Department Care Team (Late st Contact Info) Description 05/27/2024 1:00 PM EDT Office Visit [facility] [address] [place] [address] Abdiel, Kaci, OD [address] [place] [address] 06/26/2024 1:15 PM EDT Office Visit [facility] [address] [place] [address] Balaji Quinones MD [address] [place] [address] documented as of this encounter Goals Goal [...] 128/80(2024 11:18 AM EST) No Kristi Giles PharmIvan Follow the DASH diet Diet No Kristi Giles PharmD Note: Look for foods that are low sodium. Hemoglobin A1c < 7 Result Component Type 2 diabetes mellitus 6.6( 5 11:31 AM EST) No Kristi Giles, SarayD documented as of this encounter Visit Diagnoses Diagnosis Dry eyes Unspecified tear film insufficiency documented in this encounter Additional Health Concerns Assessment Noted Time PHQ-9 Depression Total Score: 1 04/19/19 24 1:30 PM EST documented as of this encounter Care Teams Shelter Advocate Relationship Specialty Start Date End Date Balaji Quinones MD [address] [place], [place] [phone] PCP - General Internal Medicine 11/25/13 Kristi Giles PharmD [address] [place], [place] [phone] Pharmacist Internal Medicine 01/30/22 documented as of this encounter
--- OUTSIDE RECORDS SUMMARY | 2024-04-03 08:38 | XMS_ITS | Encounter Summary ---
Author Organization [facility] Address [address] [facility] [address]t [place] [address] Care Team Providers Care Vocational Technical Education Teacher Name Role Phone Balaji Quinones MD Primary Care Provide r Kristi Giles PharmD Unavailable [phone] Encounter Details Date Type Department Care Team (Late Contact Info) Description 09/08/2022 [facility] Information Management [address] [place] [address] Balaji Quinones MD [address] [place] [address] Social History Tobacco Use Types Packs/Day Years [...] Description 05/27/2024 1:00 PM EDT Office Visit [facility] [address] [place] [address] Kaci Meadows, OD [address] [place] [address] 06/26/2024 1:15 PM EDT Office Visit [facility] [address] [place] [address] Balaji Quinones MD [address] [place] [address] documented as of this encounter Goals Goal [...] on filedocumented in this encounter Care Teams Vocational Technical Education Teacher Relationship Specialty Start Date End Date Balaji Quinones MD [address] [place] [id number] PCP - General Internal Medicine 11/25/13 Kristi Giles PharmD [address] [place] [address] Pharmacist Internal Medicine 01/30/22 documented as of this encounter
--- OUTSIDE RECORDS SUMMARY | 2024-04-03 08:38 | XMS_ITS | Encounter Summary ---
Author Organization [employer] Address [address] [facility] 7t [place] [address] Care Team Providers Care Meat Market Manager Name Role Phone Balaji Quinones MD Primary Care Provide r Kristi Giles PharmD Unavailable [phone] Reason for Visit * Reason Comments Med Refill Encounter Details Date Type Department Care Team ([facility] st Contact Info) Description 04/19/2023 Refill [facility] [address] [place] [address] Balaji Quinones MD 230 [place] [address] Primary hypertension; Folliculitis Social History Tobacco Use Types Packs/Day Years [...] Description 05/27/2024 1:00 PM EDT Office Visit [facility] OPTOMETRY [address] [place] [address] Abdiel, Kaci, OD 230 [place] [address] 06/26/2024 1:15 PM EDT Office Visit [facility] MEDICINE [address] [place] [address] Balaji Quinones MD [address] [place] [address] documented as of this encounter Goals Goal [...] as of this encounter Visit Diagnoses Diagnosis Primary hypertension Unspecified essential hypertension Folliculitis Other specified disease of hair and hair follicles documented in this encounter Additional Health Concerns Assessment Noted Time PHQ-9 Depression Total Score: 1 04/19/19 24 1:30 PM EST documented as of this encounter Care Teams Meat Market Manager Relationship Specialty Start Date End Date Balaji Quinones MD 230 [place] [address] PCP - General Internal Medicine 11/25/13 Kristi Giles, SarayD 230 [place] [address] Pharmacist Internal Medicine 01/30/22 documented as of this encounter
--- OUTSIDE RECORDS SUMMARY | 2024-04-03 08:38 | XMS_ITS | Encounter Summary ---
Author Organization [employer] Address [address] [facility] [address] 7t [place] [address] Care Team Providers Care Stamp Presser Name Role Phone Balaji Quinones MD Primary Care Provide r Kristi Giles PharmD Unavailable [phone] Reason for Visit * Reason Comments Med Refill Encounter Details Date Type Department Care Team ([facility] st Contact Info) Description 12/24/2023 Refill [facility] 230 [place] [address] Balaji Quinones MD 230 [place] [address] Folliculitis Social History Tobacco Use Types Packs/Day [...] Description 05/27/2024 1:00 PM EDT Office Visit [facility] OPTOMETRY [address] [place] [address] Abdiel, Kaci, OD 230 [place] [address] 06/26/2024 1:15 PM EDT Office Visit [facility] MEDICINE 230 [place] [address] Balaji Quinones MD 230 [place] [address] documented as of this encounter Goals Goal [...] 5 11:31 AM EST) No Kristi Giles, Quentin documented as of this encounter Visit Diagnoses Diagnosis Folliculitis Other specified disease of hair and hair follicles documented in this encounter Additional Health Concerns Assessment Noted Time PHQ-9 Depression Total Score: 1 04/19/19 24 1:30 PM EST documented as of this encounter Care Teams Stamp Presser Relationship Specialty Start Date End Date Balaji Quinones MD 230 [place] [address] PCP - General Internal Medicine 11/25/13 Kristi Giles, SarayD 230 [place] [address] Pharmacist Internal Medicine 01/30/22 documented as of this encounter
--- OUTSIDE RECORDS SUMMARY | 2024-04-03 08:38 | XMS_ITS | Encounter Summary ---
Author Organization [employer] Address 75 [facility] 7t [place] [address] Care Team Providers Care Vehicle Modification Technician Name Role Phone Balaji Quinones MD Primary Care Provide r Kristi Giles PharmD Unavailable [phone] Reason for Visit * Reason Comments Med Refill Encounter Details Date Type Department Care Team (Late Contact Info) Description 03/01/2023 Refill [facility] MEDICINE 230 [place] [address] Balaji Quinones MD 230 [place] [address] Type 2 diabetes mellitus without complication, unspecified whether penitentiary insulin use ([facility]) Social History Tobacco Use Types Packs/Day Years [...] Description 05/27/2024 1:00 PM EDT Office Visit [facility] OPTOMETRY [address] [place] [address] Abdiel, Kaci, OD 230 [place] [address] 06/26/2024 1:15 PM EDT Office Visit [facility] MEDICINE 230 [place] [address] Balaji Quinones MD 230 [place] [address] documented as of this encounter Goals Goal [...] as of this encounter Visit Diagnoses Diagnosis Type 2 diabetes mellitus without complication, unspecified whether parts counterman insulin use ([facility]) documented in this encounter Care Teams Vehicle Modification Technician Relationship Specialty Start Date End Date Balaji Quinones MD [address] [place] [address] PCP - General Internal Medicine 11/25/13 Kristi Giles PharmD [address] [place] [address] Pharmacist Internal Medicine 01/30/22 documented as of this encounter
--- OUTSIDE RECORDS SUMMARY | 2024-04-03 08:38 | XMS_ITS | Encounter Summary ---
Author Organization [employer] Address [address] [facility] [address] 7t [place] [address] Care Team Providers Care [place] Calker Name Role Phone Balaji Quinones MD Primary Care Provide r Kristi Giles PharmD Unavailable [phone] Reason for Visit * Reason Comments Med Refill Encounter Details Date Type Department Care Team ([facility] st Contact Info) Description 08/01/2023 Refill [facility] 230 [place] [address] Vani Stallworth MD 230 [place] [address] Folliculitis Social History Tobacco Use Types Packs/Day [...] Description 05/27/2024 1:00 PM EDT Office Visit [facility] OPTOMETRY [address] [place] [address] Abdiel, Kaci, OD 230 [place] [address] 06/26/2024 1:15 PM EDT Office Visit [facility] MEDICINE 230 [place] [address] Balaji Quinones MD 230 [place] [address] documented as of this encounter Goals Goal [...] 5 11:31 AM EST) No Kristi Giles, PharmD documented as of this encounter Visit Diagnoses Diagnosis Folliculitis Other specified disease of hair and hair follicles documented in this encounter Additional Health Concerns Assessment Noted Time PHQ-9 Depression Total Score: 1 04/19/19 24 1:30 PM EST documented as of this encounter Care Teams [place] Calker Relationship Specialty Start Date End Date Balaji Quinones MD [address] [place] [address] PCP - General Internal Medicine 11/25/13 Kristi Giles, SarayD [address] [place] [address] Pharmacist Internal Medicine 01/30/22 documented as of this encounter
--- OUTSIDE RECORDS SUMMARY | 2024-04-03 08:38 | XMS_ITS | Encounter Summary ---
Author Organization [employer] Address 75 [facility] 7t [place] [address] Care Team Providers Care Soft Tile Setter Name Role Phone Balaji Quinones MD Primary Care Provide r Kristi Giles PharmD Unavailable [phone] Reason for Visit * Reason Comments Med Refill Encounter Details Date Type Department Care Team (Late st Contact Info) Description 10/27/2022 Refill [facility] 230 [place] [address] Clau Pascual ANP 230 [place] [address] Tinea pedis of both feet Social History Tobacco Use Types Packs/Day Years [...] Description 05/27/2024 1:00 PM EDT Office Visit [facility] OPTOMETRY [address] [place] [address] Kaci Meadows, OD 230 [place] [address] 06/26/2024 1:15 PM EDT Office Visit [facility] MEDICINE 230 [place] [address] Balaji Quinones MD [address] [place] [address] documented as of this encounter Goals Goal [...] as of this encounter Visit Diagnoses Diagnosis Tinea pedis of both feet documented in this encounter Care Teams Soft Tile Setter Relationship Specialty Start Date End Date Balaji Quinones MD [address] [place] [address] PCP - General Internal Medicine 11/25/13 Kristi Giles PharmD [address] [place] [address] Pharmacist Internal Medicine 01/30/22 documented as of this encounter
--- OUTSIDE RECORDS SUMMARY | 2024-04-03 08:38 | XMS_ITS | Encounter Summary ---
Author Organization [employer] Address 75 [facility] 7t [place] [address] Care Team Providers Care Lithographic Photographer Name Role Phone Balaji Quinones MD Primary Care Provide r Kristi Giles PharmD Unavailable [phone] Reason for Visit * Reason Comments Med Refill Encounter Details Date Type Department Care Team (Late Contact Info) Description 03/08/2023 Refill [facility] 230 [place] [address] Balaji Quinones MD 230 [place] [address] Folliculitis Social History Tobacco Use Types Packs/Day [...] Description 05/27/2024 1:00 PM EDT Office Visit [facility] OPTOMETRY [address] [place] [address] Kaci Meadows, OD 230 [place] [address] 06/26/2024 1:15 PM EDT Office Visit [facility] MED[facility] [address] [place] [address] Balaji Quinones MD 230 [place] [address] documented as of this encounter Goals Goal [...] and hair follicles documented in this encounter Care Teams Lithographic Photographer Relationship Specialty Start Date End Date Balaji Quinones MD 230 [place] [address] PCP - General Internal Medicine 11/25/13 Kristi Giles PharmD 230 [place] [address] Pharmacist Internal Medicine 01/30/22 documented as of this encounter
--- OUTSIDE RECORDS SUMMARY | 2024-04-03 08:38 | XMS_ITS | Encounter Summary ---
Author Organization [employer] Address 75 [facility] [address] [place] [address] Care Team Providers Care Transportation Security Screener Name Role Phone Balaji Quinones MD Primary Care Provide r Kristi Giles PharmD Unavailable [phone] Encounter Details Date Type Department Care Team ([facility] Contact Info) Description 01/28/2022 Abstract [facility] MED[facility] [address] [place] [address] Kristi Giles, PharmD 230 [place] [address] Social History Tobacco Use Types Packs/Day Years Used Date Smoking Tobacco: Never Assessed Sex and Gender Information Value Date Recorded [...] suspected to have Coronavirus/COVID-19? No / Unsure 01/30/2022 1:54 PM EST documented as of this encounter Plan of Treatment Upcoming Encounters Date Type Department Care Team (Late st Contact Info) Description 05/27/2024 1:00 PM EDT Office Visit [facility] OPTOMETRY [address] [place] [address] Kaci Meadows, OD 230 [place] [address] 06/26/2024 1:15 PM EDT Office Visit [facility] MEDICINE 230 [place] [address] Balaji Quinones MD 230 [place] [address] documented as of this encounter Goals Goal [...] on filedocumented in this encounter Care Teams Transportation Security Screener Relationship Specialty Start Date End Date Balaji Quinones MD 230 [place] [address] PCP - General Internal Medicine 11/25/13 Kristi Giles PharmD 230 [place] [address] Pharmacist Internal Medicine 01/30/22 documented as of this encounter
--- OUTSIDE RECORDS SUMMARY | 2024-04-03 08:38 | XMS_ITS | Encounter Summary ---
Author Organization [employer] Address [address] [facility] [address] 7t [place] [address] Care Team Providers Care Hr Intern Name Role Phone Balaji Quinones MD Primary Care Provide r Kristi Giles PharmD Unavailable [phone] Reason for Visit * Reason Comments Med Refill Encounter Details Date Type Department Care Team (Late st Contact Info) Description 06/11/2023 Refill [facility] [address] [place] [address] Balaji Quinones MD [address] [place] [address] Swelling of right middle finger Social History [...] Description 05/27/2024 1:00 PM EDT Office Visit [facility] OPTOMETRY [address] [place] [address] Abdiel, Kaci, OD 230 [place] [address] 06/26/2024 1:15 PM EDT Office Visit [facility] MEDICINE 230 [place] [address] Balaji Quinones MD 230 [place] [address] documented as of this encounter Goals Goal [...] right middle finger documented in this encounter Additional Health Concerns Assessment Noted Time PHQ-9 Depression Total Score: 1 04/19/19 24 1:30 PM EST documented as of this encounter Care Teams Hr Intern Relationship Specialty Start Date End Date Balaji Quinones MD [address] [place] [address] PCP - General Internal Medicine 11/25/13 Kristi Giles, SarayD [address] [place] [address] Pharmacist Internal Medicine 01/30/22 documented as of this encounter
--- OUTSIDE RECORDS SUMMARY | 2024-04-03 08:38 | XMS_ITS | Encounter Summary ---
Author Organization [employer] Address 75 [facility] 7t [place] [address] Care Team Providers Care Shot Packer Name Role Phone Balaji Quinones MD Primary Care Provide r Kristi Giles PharmD Unavailable [phone] Reason for Visit * Reason Comments Med Refill Encounter Details Date Type Department Care Team ([facility] st Contact Info) Description 03/25/2024 Refill [facility] 230 [place] [address] Balaji Quinones MD 230 [place] [address] Primary hypertension Social History Tobacco Use Types Packs/Day Years [...] Description 05/27/2024 1:00 PM EDT Office Visit [facility] OPTOMETRY [address] [place] [address] Abdiel, Kaci, OD 230 [place] [address] 06/26/2024 1:15 PM EDT Office Visit [facility] MEDICINE 230 [place] [address] Balaji Quinones MD 230 [place] [address] documented as of this encounter Goals Goal [...] Diagnoses Diagnosis Primary hypertension Unspecified essential hypertension documented in this encounter Additional Health Concerns Assessment Noted Time PHQ-9 Depression Total Score: 1 04/19/19 24 1:30 PM EST documented as of this encounter Care Teams Shot Packer Relationship Specialty Start Date End Date Balaji Quinones MD 230 [place] [address] PCP - General Internal Medicine 11/25/13 Kristi Giles, SarayD 230 [place] [address] Pharmacist Internal Medicine 01/30/22 documented as of this encounter
--- OUTSIDE RECORDS SUMMARY | 2024-04-03 08:38 | XMS_ITS | Encounter Summary ---
Author Organization [employer] Address 75 [facility] 7t [place] [address] Care Team Providers Care Inclusion Specialist Name Role Phone Balaji Quinones MD Primary Care Provide r Kristi Giles PharmD Unavailable [phone] Reason for Visit * Reason Comments Med Refill Encounter Details Date Type Department Care Team (Late st Contact Info) Description 10/27/2022 Refill [facility] MEDICINE 230 [place] [address] Balaji Quinones MD 230 [place] [address] Dermatitis of lower extremity Social History Tobacco Use Types Packs/Day Years [...] Description 05/27/2024 1:00 PM EDT Office Visit [facility] OPTOMETRY [address] [place] [address] Kaci Meadows, OD 230 [place] [address] 06/26/2024 1:15 PM EDT Office Visit [facility] MEDICINE [address] [place] [address] Balaji Quinones MD [address] [place] [address] documented as of this encounter Goals Goal [...] as of this encounter Visit Diagnoses Diagnosis Dermatitis of lower extremity documented in this encounter Care Teams Inclusion Specialist Relationship Specialty Start Date End Date Balaji Quinones MD [address] [place] [address] PCP - General Internal Medicine 11/25/13 Kristi Giles PharmD [address] [place] [address] Pharmacist Internal Medicine 01/30/22 documented as of this encounter
--- OUTSIDE RECORDS SUMMARY | 2024-04-03 08:38 | XMS_ITS | Encounter Summary ---
Author Organization [employer] Address [address] [facility] [address] 7t [place] [address] Care Team Providers Care Sea [place] Gatherer Name Role Phone Balaji Quinones MD Primary Care Provide r Kristi Giles PharmD Unavailable [phone] Reason for Visit * Reason Comments Med Refill Encounter Details Date Type Department Care Team ([facility] st Contact Info) Description 06/25/2023 Refill [facility] 230 [place] [address] Balaji Quinones MD [address] [place] [address] Folliculitis Social History Tobacco Use Types Packs/Day [...] Description 05/27/2024 1:00 PM EDT Office Visit [facility] OPTOMETRY [address] [place] [address] Abdiel, Kaci, OD 230 [place] [address] 06/26/2024 1:15 PM EDT Office Visit [facility] MEDICINE 230 [place] [address] Balaji Quinones MD [address] [place] [address] documented as of this encounter Goals Goal [...] documented as of this encounter Care Teams Sea Shell Gatherer Relationship Specialty Start Date End Date Balaji Quinones MD 230 [place] [address] PCP - General Internal Medicine 11/25/13 Kristi Giles, Quentin [address] [place] [address] Pharmacist Internal Medicine 01/30/22 documented as of this encounter
--- OUTSIDE RECORDS SUMMARY | 2024-04-03 08:39 | XMS_ITS | Encounter Summary ---
Author Organization [employer] Address 75 [facility] 7t [place] [address] Care Team Providers Care Beaming Inspector Name Role Phone Balaji Quinones MD Primary Care Provide r Kristi Giles PharmD Unavailable [phone] Reason for Visit * Reason Comments Med Refill Encounter Details Date Type Department Care Team ([facility] st Contact Info) Description 03/06/2024 Refill [facility] 230 [place] [address] Pam Lemons MD 230 [place] [address] Tinea pedis of both feet Social History [...] 1:00 PM EDT Office Visit [facility] OPTOMETRY [address] [place] [address] Abdiel, Kaci, OD 230 [place] [address] 06/26/2024 1:15 PM EDT Office Visit [facility] MEDICINE 230 [place] [address] Balaji Quinones MD 230 [place] [address] documented as of this encounter Goals Goal [...] of both feet documented in this encounter Additional Health Concerns Assessment Noted Time PHQ-9 Depression Total Score: 1 04/19/19 24 1:30 PM EST documented as of this encounter Care Teams Beaming Inspector Relationship Specialty Start Date End Date Balaji Quinones MD 230 [place] [address] PCP - General Internal Medicine 11/25/13 Kristi Giles, Quentin 230 [place] [address] Pharmacist Internal Medicine 01/30/22 documented as of this encounter
--- OUTSIDE RECORDS SUMMARY | 2024-04-03 08:41 | XMS_ITS | Encounter Summary ---
Author Organization [employer] Address 75 [facility] 7t [place] [address] Care Team Providers Care Merchandise Support Associate Name Role Phone Balaji Quinones MD Primary Care Provide r Kristi Giles PharmD Unavailable [phone] Reason for Visit * Reason Onset Date Comments Med Refill 01/30/2023 Encounter Details Date Type Department Care Team ([facility] st Contact Info) Description 01/30/2023 Telephone [facility] 230 [place] [address] Balaji Quinones MD 230 [place] [address] Med Refill Social History Tobacco Use Types Packs/Day Years [...] encounter Miscellaneous Notes * Telephone Encounter - Celeste Negrete LPN - 01/30/2023 10:10 AM EST Medication pended to PCP. * Telephone Encounter - Lisa Rob Jossy - 01/30/2023 10:00 AM EST Tc from pt requesting med refill on Aspirin Low Dose 81 MG EC tablet Please sent to [facility] - [place], [place] - [address] [facility] Pt is due on holidays but is requesting if medication could be given before than. documented in this encounter Plan of Treatment Upcoming Encounters Date Type Department Care Team (Late st Contact Info) Description 05/27/2024 1:00 PM EDT Office Visit [facility] OPTOMETRY [address] [place] [address] Kaci Meadows, OD 230 [place] [address] 06/26/2024 1:15 PM EDT Office Visit [facility] MEDICINE 230 [place] [address] Balaji Quinones MD 230 [place] [address] documented as of this encounter Goals Goal [...] on filedocumented in this encounter Care Teams Merchandise Support Associate Relationship Specialty Start Date End Date Balaji Quinones MD 230 [place] [address] PCP - General Internal Medicine 11/25/13 Kristi Giles, PharmD [address] [place] [address] Pharmacist Internal Medicine 01/30/22 documented as of this encounter
--- OUTSIDE RECORDS SUMMARY | 2024-04-03 08:41 | XMS_ITS | Encounter Summary ---
Author Organization [employer] Address 75 [facility] 7t [place] [address] Care Team Providers Care Side Door Man Name Role Phone Balaji Quinones MD Primary Care Provide r Kristi Giles PharmD Unavailable [phone] Reason for Visit * Reason Comments Med Refill Encounter Details Date Type Department Care Team (Late Contact Info) Description 01/30/2023 Refill [facility] 230 [place] [address] Balaji Quinones MD [address] [place] [address] Social History Tobacco Use Types Packs/Day Years [...] Description 05/27/2024 1:00 PM EDT Office Visit [facility] OPTOMETRY [address] [place] [address] Kaci Meadows, OD 230 [place] [address] 06/26/2024 1:15 PM EDT Office Visit [facility] MED[facility] [address] [place] [address] Balaji Quinones MD [address] [place] [address] documented as of this encounter Goals Goal [...] on filedocumented in this encounter Care Teams Side Door Man Relationship Specialty Start Date End Date Balaji Quinones MD [address] [place] [address] PCP - General Internal Medicine 11/25/13 Kristi Giles PharmD [address] [place] [address] Pharmacist Internal Medicine 01/30/22 documented as of this encounter
--- OUTSIDE RECORDS SUMMARY | 2024-04-03 08:41 | XMS_ITS | Encounter Summary ---
Author Organization [employer] Address 75 [facility] [address]t [place] [address] Care Team Providers Care Terminal Carman Name Role Phone Balaji Quinones MD Primary Care Provide r Kristi Giles PharmD Unavailable [phone] Reason for Visit * Reason Comments Med Refill Encounter Details Date Type Department Care Team (Late Contact Info) Description 01/30/2023 Refill [facility] 230 [place] [address] Balaji Quinones MD 230 [place] [address] Social History Tobacco Use Types Packs/Day Years [...] Description 05/27/2024 1:00 PM EDT Office Visit [facility] OPTOMET[facility] [address] [place] [address] Kaci Meadows, OD 230 [place] [address] 06/26/2024 1:15 PM EDT Office Visit [facility] MED[facility] [address] [place] [address] Balaji Quinones MD [address] [place] [address] documented as of this encounter Goals Goal [...] on filedocumented in this encounter Care Teams Terminal Carman Relationship Specialty Start Date End Date Balaji Quinones MD [address] [place] [address] PCP - General Internal Medicine 11/25/13 Kristi Giles PharmD [address] [place] [address] Pharmacist Internal Medicine 01/30/22 documented as of this encounter
--- OUTSIDE RECORDS SUMMARY | 2024-04-03 08:41 | XMS_ITS | Encounter Summary ---
Author Organization [employer] Address 75 [facility] 7t [place] [address] Care Team Providers Care Clerical Assigner Name Role Phone Balaji Quinones MD Primary Care Provide r Kristi Giles PharmD Unavailable [phone] Reason for Visit * Reason Onset Date Comments Durable Medical Equipment 01/30/2023 Encounter Details Date Type Department Care Team (Late st Contact Info) Description 01/30/[address] [facility] [address] [place] [address] Balaji Quinones MD 230 [place] [address] Durable Medical Equipment Social History Tobacco Use Types Packs/Day Years [...] encounter Miscellaneous Notes * Telephone Encounter - Lisa Coffeyaquiles Fenton - 01/30/2023 10:07 AM EST Tc from pt requesting knee pads due to his diabetes diagnostics and taking falls. Please contact pt @ [phone] Occitan Speaker documented in this encounter Plan of Treatment Upcoming Encounters Date Type Department Care Team (Late st Contact Info) Description 05/27/2024 1:00 PM EDT Office Visit [facility] [address] [place] [address] Kaci Meadows, OD 230 [place] [address] 06/26/2024 1:15 PM EDT Office Visit [facility] [address] [place] [address] Balaji Quinones MD [address] [place] [address] documented as of this encounter Goals Goal Patient Goal Type Associated Problems Recent Progress Patient-Stated? Author Blood Pressure < 140/90 Blood Pressure 128/80(2024 11:18 AM EST) No Kristi Giles PharmD Note: Maintain BP less than 140/90 Record your blood pressure once per day Blood Pressure No Kristi Giels PharmD Note: Check BP daily Blood Pressure < 140/90 Blood Pressure Hypertension 128/80(2024 11:18 AM EST) No Kristi Giles PharmD Follow the DASH diet Diet No Kristi Giles PharmD Note: Look for foods that are low sodium. documented as of this encounter Visit Diagnoses Not on filedocumented in this encounter Care Teams Clerical Assigner Relationship Specialty Start Date End Date Balaji Quinones MD 230 [place] [address] PCP - General Internal Medicine 11/25/13 Kristi Giles PharmD [address] [place] [address] Pharmacist Internal Medicine 01/30/22 documented as of this encounter
--- OUTSIDE RECORDS SUMMARY | 2024-04-03 08:41 | XMS_ITS | Encounter Summary ---
Author Organization [employer] Address 75 [facility] 7t [place] [address] Care Team Providers Care Education And Training Manager Name Role Phone Balaji Quinones MD Primary Care Provide r Kristi Giles PharmD Unavailable [phone] Reason for Visit * Reason Comments Med Refill Encounter Details Date Type Department Care Team (Late Contact Info) Description 12/30/[address] [facility] [address] [place] [address] Balaji Quinones MD [address] [place] [address] Tinea pedis of both feet Social History [...] Description 05/27/2024 1:00 PM EDT Office Visit [facility] [address] [place] [address] Kaci Meadows, OD 230 [place] [address] 06/26/2024 1:15 PM EDT Office [facility] [address] [place] [address] Balaji Quinones MD [address] [place] [address] documented as of this encounter Goals Goal [...] feet documented in this encounter Care Teams Education And Training Manager Relationship Specialty Start Date End Date Balaji Quinones MD [address] [place] [address] PCP - General Internal Medicine 11/25/13 Kristi Giels PharmD [address] [place] [address] Pharmacist Internal Medicine 01/30/22 documented as of this encounter
[2024-04-03] MEDS: iohexoL 350 MG/ML 100 ML INFUS..BTL IV (09:49)
== END 2024-04-03 08:21 | disposition home or self-care (01) ==
LOC: HO.CT 08:20
PROVIDERS: PCP Internal Medicine; Visit Provider Internal Medicine
DX: I71.21 Aneurysm of the ascending aorta, without rupture (principal); R55 Syncope and collapse
CPT/HCPCS: 70450; 71275; Q9967

== ENCOUNTER → 2024-04-03 08:23 | Outpatient (BNV) | payer MEDICARE, MEDICAID, SELFPAY | PROVIDERS: PCP Internal Medicine; Visit Provider Radiology Diagnostic Radiology | DX: I77.810 Thoracic aortic ectasia (principal); R55 Syncope and collapse | CPT/HCPCS: 70450; 71275 ==

== ENCOUNTER 2024-04-10 09:19 | Outpatient (REF) | payer MEDICARE, MEDICAID, SELFPAY ==
--- OUTSIDE RECORDS SUMMARY | 2024-04-10 10:17 | XMS_ITS | Encounter Summary ---
Author Organization [employer] Address 75 [facility] 7t [place] [address] Care Team Providers Care Electro Optical Engineer Name Role Phone Balaji Quinones MD Primary Care Provide r Kristi Giles PharmD Unavailable [phone] Reason for Visit * Reason Comments Med Refill Encounter Details Date Type Department Care Team ([facility] Contact Info) Description 04/17/2022 Refill [facility] [address] [place] [address] Brook Guerrero MD 230 [place] [address] Other chronic pain Social History Tobacco Use [...] Description 05/27/2024 1:00 PM EDT Office Visit [facility] OPT[facility] [address] [place] [address] Abdiel, Kaci, OD 230 [place] [address] 06/26/2024 1:15 PM EDT Office Visit [facility] [address] [place] [address] Balaji Quinones MD 230 [place] [address] documented as of this encounter Goals Goal Patient Goal Type Associated Problems Recent Progress Patient-Stated? Author Blood Pressure < 140/90 Blood Pressure 128/80(2024 11:18 AM EST) No Kristi Giles PharmD Note: Maintain BP less than 140/90 Record your blood pressure once per day Blood Pressure No Kristi Giles PharmD Note: Check BP daily Follow the DASH diet Diet No Kristi Glies PharmD Note: Look for foods that are low sodium. documented as of this encounter Visit Diagnoses Diagnosis Other chronic pain documented in this encounter Care Teams Electro Optical Engineer Relationship Specialty Start Date End Date Balaji Quinones MD 230 [place] [address] PCP - General Internal Medicine 11/25/13 Kristi Giles PharmD 230 [place] [address] Pharmacist Internal Medicine 01/30/22 documented as of this encounter
--- OUTSIDE RECORDS SUMMARY | 2024-04-10 10:17 | XMS_ITS | Encounter Summary ---
Author Organization [employer] Address 75 [facility] 7t [place] [address] Care Team Providers Care Radio Despatcher Name Role Phone Balaji Quinones MD Primary Care Provide r Kristi Giles PharmD Unavailable [phone] Reason for Visit * Reason Comments Med Refill Encounter Details Date Type Department Care Team (Late Contact Info) Description 03/01/[address] [facility] 230 [place] [address] Balaji Quinones MD 230 [place] [address] Type 2 diabetes mellitus without complication, unspecified whether care home insulin use ([facility]) Social History Tobacco Use Types Packs/Day Years [...] Visit [facility] [address] [place] [address] Abdiel, Kaci, OD 230 [place] [address] 06/26/2024 1:15 PM EDT Office Visit [facility] 230 [place] [address] Balaji Quinones MD [address] [place] [address] documented as of this encounter Goals Goal [...] 2 diabetes mellitus without complication, unspecified whether marine oil terminal superintendent insulin use ([facility]) documented in this encounter Care Teams Radio Despatcher Relationship Specialty Start Date End Date Balaji Quinones MD [address] [place] [address] PCP - General Internal Medicine 11/25/13 Kristi Giles PharmD [address] [place] [address] Pharmacist Internal Medicine 01/30/22 documented as of this encounter
--- OUTSIDE RECORDS SUMMARY | 2024-04-10 10:17 | XMS_ITS | Encounter Summary ---
Author Organization [employer] Address 75 [facility] 7t [place] [address] Care Team Providers Care Assistant Professor Of Spanish Name Role Phone Balaji Quinones MD Primary Care Provide r Kristi Giles PharmD Unavailable [phone] Reason for Visit * Reason Comments Med Refill Encounter Details Date Type Department Care Team (Late Contact Info) Description 03/08/2023 Refill [facility] 230 [place] [address] Balaji Quinones MD [address] [place] [address] Folliculitis Social History Tobacco Use Types Packs/Day [...] Description 05/27/2024 1:00 PM EDT Office Visit [facility] OPT[facility] [address] [place] [address] Kaci Meadows, OD 230 [place] [address] 06/26/2024 1:15 PM EDT Office Visit [facility] [address] [place] [address] Balaji Quinones MD [address] [place] [address] documented as of this encounter Goals Goal [...] follicles documented in this encounter Care Teams Assistant Professor Of Spanish Relationship Specialty Start Date End Date Balaji Quinones MD [address] [place] [address] PCP - General Internal Medicine 11/25/13 Kristi Giles PharmD [address] [place] [address] Pharmacist Internal Medicine 01/30/22 documented as of this encounter
--- OUTSIDE RECORDS SUMMARY | 2024-04-10 10:17 | XMS_ITS | Encounter Summary ---
Author Organization [employer] Address 75 [facility] 7t [place] [address] Care Team Providers Care Hardware Assembler Name Role Phone Balaji Quinones MD Primary Care Provide r Kristi Giles PharmD Unavailable [phone] Reason for Visit * Reason Comments Med Refill Encounter Details Date Type Department Care Team (Late st Contact Info) Description 10/27/2022 Refill [facility] 230 [place] [address] Balaji Quinones MD 230 [place] [address] Dermatitis of lower extremity Social History Tobacco [...] Description 05/27/2024 1:00 PM EDT Office Visit [facility] OPTOMETRY [address] [place] [address] Kaci Meadows, OD [address] [place] [address] 06/26/2024 1:15 PM EDT Office Visit [facility] [address] [place] [address] Balaji Quinones MD [address] [place] [address] documented as of this encounter Goals Goal [...] extremity documented in this encounter Care Teams Hardware Assembler Relationship Specialty Start Date End Date Balaji Quinones MD [address] [place] [address] PCP - General Internal Medicine 11/25/13 Kristi Giles PharmD [address] [place] [address] Pharmacist Internal Medicine 01/30/22 documented as of this encounter
--- OUTSIDE RECORDS SUMMARY | 2024-04-10 10:17 | XMS_ITS | Encounter Summary ---
Author Organization [employer] Address 75 [facility] 7t [place] [address] Care Team Providers Care Agricultural Equipment Salesperson Name Role Phone Balaji Quinones MD Primary Care Provide r Kristi Giles PharmD Unavailable [phone] Reason for Visit * Reason Comments Med Refill Encounter Details Date Type Department Care Team ([facility] st Contact Info) Description 03/14/[address] [facility] MED[facility] [address] [place] [address] Balaji Quinones MD [address] [place] [address] Dry eyes Social History Tobacco Use Types [...] 1:00 PM EDT Office Visit [facility] OPTOMETRY [address] [place] [address] Abdiel, Kaci, OD 230 [place] [address] 06/26/2024 1:15 PM EDT Office Visit [facility] MEDICINE [address] [place] [address] Balaji Quinones MD [address] [place] [address] documented as of this encounter Goals Goal [...] documented as of this encounter Care Teams Agricultural Equipment Salesperson Relationship Specialty Start Date End Date Balaji Quinones MD [address] [place], [place] [phone] PCP - General Internal Medicine 11/25/13 Kristi Giles PharmD [address] [place], [place] [phone] Pharmacist Internal Medicine 01/30/22 documented as of this encounter
--- OUTSIDE RECORDS SUMMARY | 2024-04-10 10:17 | XMS_ITS | Encounter Summary ---
Author Organization [facility] Address 75 [facility] 7t [place] [address] Care Team Providers Care Explosive Ordnance Disposal Manager Name Role Phone Balaji Quinones MD Primary Care Provide r Kristi Giles PharmD Unavailable [phone] Encounter Details Date Type Department Care Team (Late Contact Info) Description 09/08/2022 [facility] 230 [place] [address] Balaji Quinones MD 230 [place] [address] Social History Tobacco Use Types Packs/Day Years [...] 1:00 PM EDT Office Visit [facility] [address] [place] [address] Kaci Meadows, OD 230 [place] [address] 06/26/2024 1:15 PM EDT Office Visit [facility] 230 [place] [address] Balaji Quinones MD [address] [place] [address] documented as of this encounter Goals Goal [...] on filedocumented in this encounter Care Teams Explosive Ordnance Disposal Manager Relationship Specialty Start Date End Date Balaji Quinones MD [address] [place] [address] PCP - General Internal Medicine 11/25/13 Kristi Giles PharmD [address] [place] [address] Pharmacist Internal Medicine 01/30/22 documented as of this encounter
--- OUTSIDE RECORDS SUMMARY | 2024-04-10 10:17 | XMS_ITS | Encounter Summary ---
Author Organization [employer] Address [address] [facility] [address] 7t [place] [address] Care Team Providers Care Truck Driver Supervisor Name Role Phone Balaji Quinones MD Primary Care Provide r Kristi Giles PharmD Unavailable [phone] Reason for Visit * Reason Comments Med Refill Encounter Details Date Type Department Care Team ([facility] st Contact Info) Description 08/01/2023 Refill [facility] [address] [place] [address] Vani Stallworth MD [address] [place] [address] Folliculitis Social History Tobacco Use Types Packs/Day [...] Description 05/27/2024 1:00 PM EDT Office Visit [facility] OPTOMETRY [address] [place] [address] Abdiel, Kaci, OD 230 [place] [address] 06/26/2024 1:15 PM EDT Office Visit [facility] [address] [place] [address] Balaji Quinones MD [address] [place] [address] documented as of this encounter Goals Goal [...] documented as of this encounter Care Teams Truck Driver Supervisor Relationship Specialty Start Date End Date Balaji Quinones MD [address] [place] [address] PCP - General Internal Medicine 11/25/13 Kristi Giles, SarayD [address] [place] [address] Pharmacist Internal Medicine 01/30/22 documented as of this encounter
--- OUTSIDE RECORDS SUMMARY | 2024-04-10 10:17 | XMS_ITS | Encounter Summary ---
Author Organization [employer] Address 75 [facility] 7t [place] [address] Care Team Providers Care Project Coordinator Rn Name Role Phone Balaji Quinones MD Primary Care Provide r Kristi Giles PharmD Unavailable [phone] Reason for Visit * Reason Comments Med Refill Encounter Details Date Type Department Care Team ([facility] st Contact Info) Description 03/25/2024 Refill [facility] [address] [place] [address] Balaji Quinones MD 230 [place] [address] Primary hypertension Social History Tobacco Use Types [...] Description 05/27/2024 1:00 PM EDT Office Visit [facility] OPTOMETRY [address] [place] [address] Abdiel, Kaci, OD 230 [place] [address] 06/26/2024 1:15 PM EDT Office Visit [facility] [address] [place] [address] Balaji Quinones MD 230 [place] [address] documented as of this encounter Goals Goal [...] documented as of this encounter Care Teams Project Coordinator Rn Relationship Specialty Start Date End Date Balaji Quinones MD 230 [place] [address] PCP - General Internal Medicine 11/25/13 Kristi Giles, SarayD 230 [place] [address] Pharmacist Internal Medicine 01/30/22 documented as of this encounter
--- OUTSIDE RECORDS SUMMARY | 2024-04-10 10:17 | XMS_ITS | Encounter Summary ---
Author Organization [employer] Address [address] [facility] [address] [place] [address] Care Team Providers Care Spin Tank Tender Name Role Phone Balaji Quinones MD Primary Care Provide r Kristi Giles PharmD Unavailable [phone] Reason for Visit * Reason Comments Med Refill Encounter Details Date Type Department Care Team (Late Contact Info) Description 05/11/2022 Refill [facility] 230 [place] [address] Balaji Quinones MD [address] [place] [address] Swelling of right middle finger Social History [...] Description 05/27/2024 1:00 PM EDT Office Visit [facility] OPTOMET[facility] [address] [place] [address] AbdielKaci yi, OD 230 [place] [address] 06/26/2024 1:15 PM EDT Office Visit [facility] MED[facility] 230 [place], [place] [phone] Balaji Quinones MD 230 [place] [address] documented as of this encounter Goals Goal [...] finger documented in this encounter Care Teams Spin Tank Tender Relationship Specialty Start Date End Date Balaji Quinones MD [address] [place] [id number] PCP - General Internal Medicine 11/25/13 Kristi Giles PharmD [address] [place] [address] Pharmacist Internal Medicine 01/30/22 documented as of this encounter
--- OUTSIDE RECORDS SUMMARY | 2024-04-10 10:17 | XMS_ITS | Encounter Summary ---
Author Organization [employer] Address [address] [facility] [address] [place] [address] Care Team Providers Care Loan Processing Supervisor Name Role Phone Balaji Quinones MD Primary Care Provide r Kristi Giles PharmD Unavailable [phone] Reason for Visit * Reason Comments Med Refill Encounter Details Date Type Department Care Team (Late st Contact Info) Description 06/11/2023 Refill [facility] [address] [place] [address] Balaji Quinones MD [address] [place] [address] Swelling of right middle finger Social History [...] Description 05/27/2024 1:00 PM EDT Office Visit [facility] OPT[facility] [address] [place] [address] Abdiel, Kaci, OD 230 [place] [address] 06/26/2024 1:15 PM EDT Office Visit [facility] MED[facility] [address] [place] [address] Balaji Quinones MD 230 [place] [address] documented as of this encounter Goals Goal [...] documented as of this encounter Care Teams Loan Processing Supervisor Relationship Specialty Start Date End Date Balaji Quinones MD [address] [place] [address] PCP - General Internal Medicine 11/25/13 Kristi Giles, SarayD [address] [place] [address] Pharmacist Internal Medicine 01/30/22 documented as of this encounter
--- OUTSIDE RECORDS SUMMARY | 2024-04-10 10:17 | XMS_ITS | Encounter Summary ---
Author Organization [employer] Address [address] [facility] [address] [place] [address] Care Team Providers Care Tree Scout Name Role Phone Balaji Quinones MD Primary Care Provide r Kristi Giles PharmD Unavailable [phone] Reason for Visit * Reason Comments Med Refill Encounter Details Date Type Department Care Team ([facility] st Contact Info) Description 04/19/2023 Refill [facility] [address] [place] [address] Balaji Quinones MD [address] [place] [address] Primary hypertension; Folliculitis Social History Tobacco Use [...] Description 05/27/2024 1:00 PM EDT Office Visit [facility] OPTOMETRY [address] [place] [address] Abdiel, Kaci, OD 230 [place] [address] 06/26/2024 1:15 PM EDT Office Visit [facility] MEDICINE [address] [place] [address] Balaji Quinones MD [address] [place] [address] documented as of this encounter Goals Goal [...] documented as of this encounter Care Teams Tree Scout Relationship Specialty Start Date End Date Balaji Quinones MD [address] [place] [address] PCP - General Internal Medicine 11/25/13 Kristi Giles, SarayD [address] [place] [address] Pharmacist Internal Medicine 01/30/22 documented as of this encounter
--- OUTSIDE RECORDS SUMMARY | 2024-04-10 10:17 | XMS_ITS | Encounter Summary ---
Author Organization [employer] Address [address] [facility] [address] [place] [address] Care Team Providers Care Folder And Notcher Name Role Phone Balaji Quinones MD Primary Care Provide r Kristi Giles PharmD Unavailable [phone] Reason for Visit * Reason Comments Med Refill Encounter Details Date Type Department Care Team ([facility] st Contact Info) Description 06/25/2023 Refill [facility] [address] [place] [address] Balaji Quinones MD [address] [place] [address] Folliculitis Social History Tobacco Use Types Packs/Day [...] 1:00 PM EDT Office Visit [facility] OPT[facility]RY [address] [place] [address] Abdiel, Kaci, OD 230 [place] [address] 06/26/2024 1:15 PM EDT Office Visit [facility] [address] [place] [address] Balaji Quinones MD [address] [place] [address] documented as of this encounter Goals Goal [...] 6.6( 5 11:31 AM EST) No Kristi Giels, Quentin documented as of this encounter Visit Diagnoses Diagnosis Folliculitis Other specified disease of hair and hair follicles documented in this encounter Additional Health Concerns Assessment Noted Time PHQ-9 Depression Total Score: 1 04/19/19 24 1:30 PM EST documented as of this encounter Care Teams Folder And Notcher Relationship Specialty Start Date End Date Balaji Quinones MD [address] [place] [address] PCP - General Internal Medicine 11/25/13 Kristi Giles, Quentin [address] [place] [address] Pharmacist Internal Medicine 01/30/22 documented as of this encounter
--- OUTSIDE RECORDS SUMMARY | 2024-04-10 10:17 | XMS_ITS | Encounter Summary ---
Author Organization [employer] Address [address] [facility] 7t [place] [address] Care Team Providers Care Maternal Child Nurse Name Role Phone Balaji Quinones MD Primary Care Provide r Kristi Giles PharmD Unavailable [phone] Encounter Details Date Type Department Care Team ([facility] Contact Info) Description 06/22/2022 Abstract [facility] MEDICINE [address] [place] [address] Balaji Quinones MD [address] [place] [address] Social History Tobacco Use Types Packs/Day Years [...] Upcoming Encounters Date Type Department Care Team ([facility] Contact Info) Description 05/27/2024 1:00 PM EDT Office Visit [facility] OPTOMETRY [address] [place] [address] Abdiel, Kaci, OD 230 [place] [address] 06/26/2024 1:15 PM EDT Office Visit [facility] MEDICINE [address] [place] [address] Balaji Quinones MD [address] [place] [address] documented as of this encounter Goals Goal [...] EDT Recommended 10 year follow up ( [facility] [place] us Historical Provider HEALTH MAINTENANCE Final Result documented in this encounter Visit Diagnoses Not on filedocumented in this encounter Care Teams Maternal Child Nurse Relationship Specialty Start Date End Date Balaji Quinones MD [address] [place] [address] PCP - General Internal Medicine 11/25/13 Kristi Giles PharmD [address] [place], [place] [phone] Pharmacist Internal Medicine 01/30/22 documented as of this encounter
--- OUTSIDE RECORDS SUMMARY | 2024-04-10 10:17 | XMS_ITS | Encounter Summary ---
Author Organization [employer] Address [address] [facility] 7[address] [place] [address] Care Team Providers Care Rn Digestive Name Role Phone Balaji Quinones MD Primary Care Provide r Kristi Giles PharmD Unavailable [phone] Reason for Visit * Reason Comments Med Refill Encounter Details Date Type Department Care Team (Late st Contact Info) Description 09/17/2022 Refill [facility] [address] [place] [address] Balaji Quinones MD [address] [place] [address] Dry eyes Social History Tobacco Use Types [...] 1:00 PM EDT Office Visit [facility] OPTOMETRY [address] [place] [address] Kaci Meadows, OD [address] [place] [address] 06/26/2024 1:15 PM EDT Office Visit [facility] MEDICINE [address] [place] [address] Balaji Quinones MD [address] [place] [address] documented as of this encounter Goals Goal [...] insufficiency documented in this encounter Care Teams Rn Digestive Relationship Specialty Start Date End Date Balaji Quinones MD [address] [place] [id number] PCP - General Internal Medicine 11/25/13 Kristi Giles PharmD [address] [place] [phone] Pharmacist Internal Medicine 01/30/22 documented as of this encounter
--- OUTSIDE RECORDS SUMMARY | 2024-04-10 10:17 | XMS_ITS | Encounter Summary ---
Author Organization [email or web address] Address [address] [facility] 7t [place] [address] Care Team Providers Care It Program Engagement Director Name Role Phone Balaji Quinones MD Primary Care Provide r Kristi Giles PharmD Unavailable [phone] Reason for Visit * Reason Comments Med Refill Encounter Details Date Type Department Care Team (Late st Contact Info) Description 10/27/2022 Refill [facility] [address] [place] [address] Clau Pascual ANP [address] [place] [address] Tinea pedis of both feet Social History [...] Description 05/27/2024 1:00 PM EDT Office Visit [facility] OPTOMETRY [address] [place] [address] Kaci Meadows, OD [address] [place] [address] 06/26/2024 1:15 PM EDT Office Visit [facility] MEDICINE [address] [place] [address] Balaji Quinones MD [address] [place] [address] documented as of this encounter Goals Goal [...] feet documented in this encounter Care Teams It Program Engagement Director Relationship Specialty Start Date End Date Balaji Quinones MD [address] [place] [id number] PCP - General Internal Medicine 11/25/13 Kristi Giles PharmD [address] [place] [id number] Pharmacist Internal Medicine 01/30/22 documented as of this encounter
--- OUTSIDE RECORDS SUMMARY | 2024-04-10 10:17 | XMS_ITS | Encounter Summary ---
Author Organization [employer] Address [address] [facility] [address] [place] [address] Care Team Providers Care Whiskey Regauger Name Role Phone Balaji Quinones MD Primary Care Provide r Kristi Giles PharmD Unavailable [phone] Reason for Visit * Reason Comments Med Refill Encounter Details Date Type Department Care Team ([facility] st Contact Info) Description 12/24/2023 Refill [facility] [address] [place] [address] Balaji Quinones MD [address] [place] [address] Folliculitis Social History Tobacco Use Types Packs/Day [...] 1:00 PM EDT Office Visit [facility] OPTOMETRY [address] [place] [address] Abdiel, Kaci, OD [address] [place] [address] 06/26/2024 1:15 PM EDT Office Visit [facility] MEDICINE [address] [place] [address] Balaji Quinones MD [address] [place] [address] documented as of this encounter Goals Goal [...] 6.6( 5 11:31 AM EST) No Kristi Glies, Quentin documented as of this encounter Visit Diagnoses Diagnosis Folliculitis Other specified disease of hair and hair follicles documented in this encounter Additional Health Concerns Assessment Noted Time PHQ-9 Depression Total Score: 1 04/19/19 24 1:30 PM EST documented as of this encounter Care Teams Whiskey Regauger Relationship Specialty Start Date End Date Balaji Quinones MD [address] [place] [address] PCP - General Internal Medicine 11/25/13 Kristi Giles, SarayD [address] [place] [address] Pharmacist Internal Medicine 01/30/22 documented as of this encounter
--- OUTSIDE RECORDS SUMMARY | 2024-04-10 10:17 | XMS_ITS | Encounter Summary ---
Author Organization [employer] Address [address] [facility] 7t [place] [address] Care Team Providers Care Ammonia Box Tender Name Role Phone Balaji Quinones MD Primary Care Provide r Kristi Giles PharmD Unavailable [phone] Reason for Visit * Reason Comments Med Refill Encounter Details Date Type Department Care Team (Late Contact Info) Description 01/28/2023 Refill [facility] [address] [place] [address] Balaji Quinones MD [address] [place] [address] Social History Tobacco Use Types Packs/Day Years [...] 1:00 PM EDT Office Visit [facility] OPTOMETRY [address] [place] [address] Kaci Meadows, OD 230 [place] [address] 06/26/2024 1:15 PM EDT Office Visit [facility] [address] [place] [address] Balaji Quinones MD [address] [place] [address] documented as of this encounter Goals Goal Patient Goal Type Associated Problems Recent Progress Patient-Stated? Author Blood Pressure < 140/90 Blood Pressure 128/80(2024 11:18 AM EST) No Krisit Giles PharmD Note: Maintain BP less than [...] on filedocumented in this encounter Care Teams Ammonia Box Tender Relationship Specialty Start Date End Date Balaji Quinones MD [address] [place] [address] PCP - General Internal Medicine 11/25/13 Kristi Giles PharmD [address] [place] [phone] Pharmacist Internal Medicine 01/30/22 documented as of this encounter
--- OUTSIDE RECORDS SUMMARY | 2024-04-10 10:17 | XMS_ITS | Encounter Summary ---
Author Organization [employer] Address [address] [facility] 7t [place] [address] Care Team Providers Care Electrician Third Name Role Phone Balaji Quinones MD Primary Care Provide r Kristi Giles PharmD Unavailable [phone] Encounter Details Date Type Department Care Team ([facility] Contact Info) Description 01/28/2022 Abstract [facility] MEDICINE [address] [place] [address] Kristi Giles, PharmD [address] [place] [address] Social History Tobacco Use Types Packs/Day Years [...] 1:00 PM EDT Office Visit [facility] OPTOMETRY [address] [place] [address] Kaci Meadows, OD [address] [place] [address] 06/26/2024 1:15 PM EDT Office Visit [facility] MEDICINE [address] [place] [address] Balaji Quinones MD [address] [place] [address] documented as of this encounter Goals Goal [...] on filedocumented in this encounter Care Teams Electrician Third Relationship Specialty Start Date End Date Balaji Quinones MD [address] [place] [address] PCP - General Internal Medicine 11/25/13 Kristi Giles PharmD [address] [place] [address] Pharmacist Internal Medicine 01/30/22 documented as of this encounter
--- OUTSIDE RECORDS SUMMARY | 2024-04-10 10:17 | XMS_ITS | Encounter Summary ---
Author Organization [email or web address] Address [address] [facility] [address] [place] [address] Care Team Providers Care Business Support Assistant Name Role Phone Balaji Quinones MD Primary Care Provide r Kristi Giles PharmD Unavailable [phone] Reason for Visit * Reason Onset Date Comments Results 04/03/2024 Encounter Details Date Type Department Care Team ([facility] st Contact Info) Description 04/03/2024 Telephone [facility] MEDICINE [address] [place] [address] Balaji Quinones MD [address] [place] [address] Results Social History Tobacco Use Types Packs/Day Years [...] encounter Miscellaneous Notes * Telephone Encounter - Ibeth Gray RN - 04/04/2024 11:57 AM EST Correction to the message sent by call center. [facility] at needs a call back from the PCP boomboat operator in regards to the pt most recent CTA Chest w and w/o contrast. [facility] justwanted a call back to confirm that the pt CTA Chest and Head Imaging that was performed yesterday was received and readable in the pt chart. RN confirmed that the imaging was in the pt chart. * Telephone Encounter - Roseann Millan - 04/03/2024 2:52 PM EST Tc from [facility] with [facility] requesting a call back from nurses or [employer] regarding results from CTA Chest. Recycling Director provides fax number to [facility]. documented in this encounter Plan of Treatment Upcoming Encounters Date Type Department Care Team (Late st Contact Info) Description 05/27/2024 1:00 PM EDT Office Visit [facility] OPTOMETRY [address] [place] [address] Kaci Meadows, OD [address] [place] [address] 06/26/2024 1:15 PM EDT Office Visit [facility] MEDICINE [address] [place] [address] Balaji Quinones MD [address] [place] [address] documented as of this encounter Goals Goal [...] Result Component Type 2 diabetes mellitus 6.6( 11:31 AM EST) No Kristi Giles PharmD documented as of this encounter Visit Diagnoses Not on filedocumented in this encounter Additional Health Concerns Assessment Noted Time PHQ-9 Depression Total Score: 1 04/19/19 24 1:30 PM EST documented as of this encounter Care Teams Business Support Assistant Relationship Specialty Start Date End Date Balaji Quinones MD [address] [place] [address] PCP - General Internal Medicine 11/25/13 Kristi Giles PharmD [address] [place] [address] Pharmacist Internal Medicine 01/30/22 documented as of this encounter
--- OUTSIDE RECORDS SUMMARY | 2024-04-10 10:18 | XMS_ITS | Clinical Summary ---
Author Organization [facility] Address [address] [place] [address] Care Team Providers Care Rn Ostomy Name Role Phone Balaji Quinones MD Primary Care Provide r Kristi Giles PharmD Unavailable [phone] Allergies No known active allergies Medications sertraline (Zoloft) 50 MG tablet Take 1 tablet (50 mg) by mouth in the morning. 30 tablet 11 01/16/20 22 Active traZODone (Desyrel) 50 MG tablet Take 1 tablet (50 mg) by mouth if needed at bedtime for sleep. 30 tablet 11 01/16/20 22 Active Ascorbic Acid (vitamin C) 250 MG tablet Take 1 tablet (250 mg) by mouth in the morning. 90 tablet Active carvedilol (Coreg) 3.125 MG tablet Take 1 tablet (3.125 mg) by mouth with breakfast and with evening meal. 60 tablet 11 01/16/20 22 Active Blood Pressure Monitoring (Omron 3 Series BP Monitor) device USE TO CHECK BLOOD PRESSURE DIRECTED 01/04/20 22 Active mineral oil-hydrophil petrolat ointment Topical Ointment APPLY TOPICALLY TO AFFECTED AREA(S) NEEDED 12/02/19 22 Active FeroSul 325 (65 Fe) MG tablet TAKE 1 TABLET BY MOUTH EVERY DAY 90 tablet 1 01/20/20 23 Active cyanocobalamin (Vitamin B-12) 1000 MCG tablet Take 1 tablet by mouth in the morning. 04/16/19 24 Active Emollient (Hydrophor) ointment APPLY TO THE AFFECTED AREA(S) TWICE DAILY 05/07/19 24 Active Alcohol Swabs (Alcohol Prep) 70 % pads USE DIRECTED TO TEST BLOOD SUGAR 100 each 11 07/26/19 24 Active Aspirin Low Dose 81 MG EC tablet TAKE 1 TABLET BY MOUTH EVERY DAY IN THE MORNING 90 tablet 2 10/18/19 24 Active hydroCHLOROthiazi de 12.5 MG tablet Take 1 tablet (12.5 mg) by mouth Once per day. 90 tablet 1 10/30/19 24 Active Petrolatum 42 % ointment APPLY TOPICALLY TO THE AFFECTED AREA(S) TWICE DAILY DIRECTED 454 g 5 11/09/19 24 Active Diclofenac Sodium 1 % gelIndications:Sw elling of right middle finger APPLY 2 GRAMS TOPICALLY TO AFFECTED AREA(S) TWICE DAILY NEEDED FOR PAIN 100 g 1 11/12/19 24 Active glipiZIDE XL (Glucotrol XL) 5 MG 24 hr tabletIndications :Type 2 diabetes mellitus without complication, unspecified whether tank terminal gauger insulin use ([facility]) TAKE 1 TABLET BY MOUTH ONCE DAILY WITH BREAKFAST DO NOT BREAK, CRUSH, DISSOLVE OR CHEW 90 tablet 1 11/14/19 24 Active glucose blood (FREESTYLE LITE) test stripIndications: Type 2 diabetes mellitus with hyperlipidemia ([facility]) ([facility]) TEST BLOOD SUGAR ONCE DAILY 100 each 12/28/19 24 Active TRUEplus Lancets 33G miscIndications:T ype 2 diabetes mellitus with hyperlipidemia ([facility]/H[facility]) ([facility]) TEST BLOOD SUGAR ONCE DAILY ICD10= 100 each 12/28/19 24 Active metFORMIN (Glucophage) 1000 MG tabletIndications :Type 2 diabetes mellitus without complication, unspecified whether tank terminal gauger insulin use ([facility]) TAKE 1 TABLET BY MOUTH TWICE DAILY IN THE MORNING AND IN THE EVENING WITH MEALS 180 tablet 3 02/13/19 25 Active pantoprazole (ProtoNix) 40 MG EC tabletIndications :Iron deficiency anemia, unspecified iron deficiency anemia type Take 1 tablet (40 mg) by mouth Once per day. Do not crush, chew, or split. 90 tablet 3 02/13/19 25 Active lisinopril 40 MG tabletIndications :Hypertension, unspecified type Take 1 tablet (40 mg) by mouth Once per day. 90 tablet 3 02/13/19 25 Active pravastatin (Pravachol) 80 MG tabletIndications :Mixed hyperlipidemia Take 1 tablet (80 mg) by mouth Once per day. 90 tablet 3 02/13/19 25 Active pioglitazone (Actos) 45 MG tabletIndications :Type 2 diabetes mellitus without complication, unspecified whether fpc insulin use ([facility]) Take 1 tablet (45 mg) by mouth Once per day. 90 tablet 3 02/13/19 25 Active triamcinolone (Kenalog) 0.025 % creamIndications: Dermatitis of lower extremity APPLY 1 GRAM TOPICALLY TO AFFECTED AREA(S) TWICE DAILY 60 g 1 02/19/19 25 Active ketoconazole (NIZOral) 2 % creamIndications: Tinea pedis of both feet APPLY 1 GRAM TOPICALLY TO AFFECTED AREA(S) EVERY DAY IN THE MORNING 30 g 1 03/06/19 25 Active polyvinyl alcohol (Liquifilm Tears) 1.4 % ophthalmic solutionIndicatio ns:Dry eyes PLACE 1 DROP IN EACH EYE THREE OR FOUR TIMES DAILY 15 mL 2 03/18/19 25 Active amLODIPine (Norvasc) 10 MG tabletIndications :Primary hypertension TAKE 1 TABLET BY MOUTH EVERY MORNING 90 tablet 1 03/25/19 25 Active amLODIPine (Norvasc) 10 MG tabletIndications :Primary hypertension TAKE 1 TABLET BY MOUTH EVERY DAY IN THE MORNING 90 tablet 1 10/08/19 24 025 Discontinued polyvinyl alcohol (Liquifilm Tears) 1.4 % ophthalmic solutionIndicatio ns:Dry eyes PLACE 1 DROP IN EACH EYE THREE OR FOUR TIMES DAILY 15 mL 2 12/04/19 24 025 Discontinued Active Problems Problem Noted Date Diagnosed Date Syncope 02/14/2024 Assessment & Plan (02/14/2024 4:19 PM EST): Pt seen at our [facility] 12/28/[address] Lloyd Puckett After pt was walking on sidewalk, felt sudden dizzy, unable to describe dizziness, and the next thing he remembers is being on the ground with facial injuries, abrasions on knees and left wrist. His [id number] brought him to [facility]. Denied headache, chest pain, SOB, n/v/d, or recent illness. States has many year h/o similar recurrent episodes of dizziness that he cannot describe, occasionally falls. ECG today shows sinus arrythmia, IVCD, PACs. 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 CT of brain Cardiology and Neurology Consult Elevated PSA 08/21/2023 Assessment & Plan (11/22/2023 11:32 AM EDT): Elevated PSA 06/19/2023 12.57 Seen by Urologist S/p prostate biopsy 10/11/2023 showed mostly benign tissue, only one sample showed: Atypical small acinar proliferation Will continue follow with urology Assessment & Plan (08/21/2023 11:38 AM EDT): Elevated PSA 06/19/2023 12.57 Seen by Urologist work up in progress. Pt tells me has appointment for an ultrasound coming up [facility] care 05/11/2022 Assessment & Plan (11/22/2023 11:36 AM EDT): PSA 06/19/2023 elevated, evaluated by Urology. S/p prostate biopsy no evidence of prostate cancer Had Colonoscopy 06/30/[address] Khan Assessment & Plan (08/21/2023 9:39 AM EDT): PSA 06/19/2023 elevated, unergoing work up per Urology Had Colonoscopy 06/30/[address] Khan Assessment & Plan (04/19/2023 12:38 PM EST): Had Colonoscopy 06/30/[address] Khan Assessment & Plan (05/15/2022 3:07 PM EDT): - Shingrix Administered - PCV 20 administered Assessment & Plan (05/11/2022 2:21 PM EDT): Had Colonoscopy 06/30/[address] Khan Dermatitis of lower extremity 04/06/2022 Assessment & Plan (04/06/2022 11:25 AM EST): Pt here with c/o new onset of pruritus on both lower extremities. Etiology ? Contact dermatosis ? Plan: Topical steroid cream, follow up if no improvement Iron deficiency anemia 01/15/2022 Assessment & Plan (08/21/2023 9:37 AM EDT): He is under the care of Hematology, seems to have responded well to Iron supplementation, EGD showed erosive esophagitis Colonoscopy 06/30/[address] Khan last seen 08/13/2023 Assessment & Plan (05/11/2022 2:19 PM EDT): He is under the care of Hematology, seems to have responded well to Iron supplementation, EGD showed erosive esophagitis Colonoscopy 06/30/[address] Khan last seen 05/21/2019 Thoracic aortic aneurysm without rupture 017 Assessment & Plan (02/14/2024 11:28 AM EST): Here for a follow up On 10/30/2016 CTA showed: Mild aneurysmal dilatation of the ascending aorta with maximal transverse dimension of about 4 cm. Mild aneurysmal dilatation of the proximal descending thoracic aorta with maximal transverse dimension of 3.9 cm. Pt was referred to [facility]. He was seen 11/06/2016 [address] Repeat Chest CTA 02/06/2018 showed: Stable mild aneurysmal dilatation of the ascending aorta with maximal transverse dimension of about 41 mm. and Stable aneurysmal dilatation of the proximal descending thoracic aorta in the region of the ductus with the maximal transverse dimension of 39 mm. CTA 02/18/2019 showed: 1. The maximum diameter of the ascending thoracic aorta appears unchanged. The maximum diameter is seen at the sinus of Valsalva, measuring 4.0 cm. There is also a ductus bump present measuring 3.8 cm, which appears unchanged. 2. There is no change in the 0.2 cm nodule in the right lower lobe. Chest CTA 02/03/2021 showed: * The ascending thoracic aorta is unchanged in size (4 cm diameter). 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 No interval aortic enlargement compared to 02/17/2019. * There are stable 0.3 cm nodules in the left lower lobe. A new small cluster of left upper lobe nodules is likely secondary to bronchiolitis. No interval development of a suspicious nodule, mass or lymphadenopathy. Based on Fleischner Society guidelines, chest CT follow-up is not required in a low-risk patient and is considered optional at 12 months in a high risk patient. Repeat Chest CTA 06/02/2022 Showed stable Ascending aortic aneurysm 4.1 x 4.0 Will repeat Assessment & Plan (04/19/2023 12:38 PM EST): Here for a follow up On 10/30/2016 CTA showed: Mild aneurysmal dilatation of the ascending aorta with maximal transverse dimension of about 4 cm. Mild aneurysmal dilatation of the proximal descending thoracic aorta with maximal transverse dimension of 3.9 cm. Pt was referred to [facility] surgeons. He was seen 11/06/2016 recommended [address] Repeat Chest CTA 02/06/2018 showed: Stable mild aneurysmal dilatation of the ascending aorta with maximal transverse dimension of about 41 mm. and Stable aneurysmal dilatation of the proximal descending thoracic aorta in the region of the ductus with the maximal transverse dimension of 39 mm. CTA 02/18/2019 showed: 1. The maximum diameter of the ascending thoracic aorta appears unchanged. The maximum diameter is seen at the sinus of Valsalva, measuring 4.0 cm. There is also a ductus bump present measuring 3.8 cm, which appears unchanged. 2. There is no change in the 0.2 cm nodule in the right lower lobe. Chest CTA 02/03/2021 showed: * The ascending thoracic aorta is unchanged in size (4 cm diameter). 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 No interval aortic enlargement compared to 02/17/2019. * There are stable 0.3 cm nodules in the left lower lobe. A new small cluster of left upper lobe nodules is likely secondary to bronchiolitis. No interval development of a suspicious nodule, mass or lymphadenopathy. Based on Fleischner Society guidelines, chest CT follow-up is not required in a low-risk patient and is considered optional at 12 months in a high risk patient. Repeat Chest CTA 06/02/2022 Showed stable Ascending aortic aneurysm 4.1 x 4.0 Assessment & Plan (08/01/2022 3:08 PM EDT): Here for a follow up On 10/30/2016 CTA showed: Mild aneurysmal dilatation of the ascending aorta with maximal transverse dimension of about 4 cm. Mild aneurysmal dilatation of the proximal descending thoracic aorta with maximal transverse dimension of 3.9 cm. Pt was referred to [facility] surgeons. He was seen 11/06/2016 recommended [address] Repeat Chest CTA 02/06/2018 showed: Stable mild aneurysmal dilatation of the ascending aorta with maximal transverse dimension of about 41 mm. and Stable aneurysmal dilatation of the proximal descending thoracic aorta in the region of the ductus with the maximal transverse dimension of 39 mm. CTA 02/18/2019 showed: 1. The maximum diameter of the ascending thoracic aorta appears unchanged. The maximum diameter is seen at the sinus of Valsalva, measuring 4.0 cm. There is also a ductus bump present measuring 3.8 cm, which appears unchanged. 2. There is no change in the 0.2 cm nodule in the right lower lobe. Chest CTA 02/03/2021 showed: * The ascending thoracic aorta is unchanged in size (4 cm diameter). 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 No interval aortic enlargement compared to 02/17/2019. * There are stable 0.3 cm nodules in the left lower lobe. A new small cluster of left upper lobe nodules is likely secondary to bronchiolitis. No interval development of a suspicious nodule, mass or lymphadenopathy. Based on Fleischner Society guidelines, chest CT follow-up is not required in a low-risk patient and is considered optional at 12 months in a high risk patient. Repeat Chest CTA 06/02/2022 Showed stable Ascending aortic aneurysm 4.1 x 4.0 Assessment & Plan (05/11/2022 2:15 PM EDT): Here for a follow up On 10/30/2016 CTA showed: Mild aneurysmal dilatation of the ascending aorta with maximal transverse dimension of about 4 cm. Mild aneurysmal dilatation of the proximal descending thoracic aorta with maximal transverse dimension of 3.9 cm. Pt was referred to [facility] surgeons. He was seen 11/06/2016 recommended [address] Repeat Chest CTA 02/06/2018 showed: Stable mild aneurysmal dilatation of the ascending aorta with maximal transverse dimension of about 41 mm. and Stable aneurysmal dilatation of the proximal descending thoracic aorta in the region of the ductus with the maximal transverse dimension of 39 mm. CTA 02/18/2019 showed: 1. The maximum diameter of the ascending thoracic aorta appears unchanged. The maximum diameter is seen at the sinus of Valsalva, measuring 4.0 cm. There is also a ductus bump present measuring 3.8 cm, which appears unchanged. 2. There is no change in the 0.2 cm nodule in the right lower lobe. Chest CTA 02/03/2021 showed: * The ascending thoracic aorta is unchanged in size (4 cm diameter). 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 No interval aortic enlargement compared to 02/17/2019. * There are stable 0.3 cm nodules in the left lower lobe. A new small cluster of left upper lobe nodules is likely secondary to bronchiolitis. No interval development of a suspicious nodule, mass or lymphadenopathy. Based on Fleischner Society guidelines, chest CT follow-up is not required in a low-risk patient and is considered optional at 12 months in a high risk patient. Plan: repeat Chest CTA Microalbuminuria 03/24/2013 Depressive disorder 08/04/2011 Assessment & Plan (05/11/2022 2:20 PM EDT): Has no complaints, feels good He is on a regimen Zoloft 100 mg po daily, Trazodone 100mg 1 to 2 tabs po qhs. pt is being followed by psych. Hypertension 07/07/2011 Overview (05/21/2023): Pharmacotherapy: (updated 05/21/2023) - stable for >1 year -Amlodipine 10 mg daily -Carvedilol 3.125mg BID (cards) -Hydrochlorothiazide 12.5mg daily -Lisinopril 40mg daily History: (Updated 05/21/2023) Historically well controlled. No changes in medications in past year. Assessment & Plan (02/14/2024 11:27 AM EST): Pt here for a f/u BP remains controlled He is on a regimen of: Norvasc 10 mg po daily, Hctz 12.5 mg po daily, Carvedilol 3.125 mg po BID ( Rx by Cardiology ) and Lisinopril 40 mg po daily. For now will continue with current medical regimen. Most recent electrolytes, Bun and Creatinine done on: 06/19/2023 were within normal limits. patient advised to adhere to a low sodium diet and encouraged about medication compliance. Assessment & Plan (08/21/2023 9:34 AM EDT): Pt here for a f/u BP remains controlled He is on a regimen of: Norvasc 10 mg po daily, Hctz 12.5 mg po daily, Carvedilol 3.125 mg po BID ( Rx by Cardiology ) and Lisinopril 40 mg po daily. For now will continue with current medical regimen. Most recent electrolytes, Bun and Creatinine done on: 06/19/2023 were within normal limits. patient advised to adhere to a low sodium diet and encouraged about medication compliance. Assessment & Plan (05/21/2023 1:11 PM EDT): Assessment: - BP is at goal of less than 140/90 per JNC8 guidelines - Labs due for repeat/ already ordered by PCP Plan/ Recommendations: - Continue with current therapy and monitoring - Go to lab before end of June for repeat labs Monitoring: Potassium (mmol/L) Date Value 07/05/2022 3.5 BP Readings from Last 2 Encounters: 05/21/23 115/70 04/19/23 134/81 Assessment & Plan (04/19/2023 12:37 PM EST): Pt here for a f/u BP remains controlled He is on a regimen of: Norvasc 10 mg po daily, Hctz 12.5 mg po daily, Carvedilol 3.125 mg po BID ( Rx by Cardiology ) and Lisinopril 40 mg po daily. For now will continue with current medical regimen. Most recent electrolytes, Bun and Creatinine done on: 07/05/2022 were within normal limits. patient advised to adhere to a low sodium diet and encouraged about medication compliance. Assessment & Plan (12/12/2022 1:04 PM EDT): Pt here for a f/u BP remains controlled He is on a regimen of: Norvasc 10 mg po daily, Hctz 12.5 mg po daily, Carvedilol 3.125 mg po BID ( Rx by Cardiology ) and Lisinopril 40 mg po daily. For now will continue with current medical regimen. Most recent electrolytes, Bun and Creatinine done on: 07/05/2022 were within normal limits. patient advised to adhere to a low sodium diet and encouraged about medication compliance. Assessment & Plan (08/01/2022 2:54 PM EDT): Pt here for a f/u BP controlled He is on a regimen of: Norvasc 10 mg po daily, Hctz 12.5 mg po daily, Carvedilol 3.125 mg po BID ( Rx by Cardiology ) and Lisinopril 40 mg po daily. For now will continue with current medical regimen. Most recent electrolytes, Bun and Creatinine done on: 07/05/2022 were within normal limits. patient advised to adhere to a low sodium diet, encouraged about medication compliance, counseled about weight loss. Assessment & Plan (05/15/2022 2:47 PM EDT): BP is at goal per JNC8 guidelines/ follow up in 1 year Assessment & Plan (05/11/2022 12:39 PM EDT): Pt here for a f/u BP controlled He is on a regimen of: Norvasc 10 mg po daily, Hctz 12.5 mg po daily and Lisinopril 40 mg po daily. For now will continue with current medical regimen. Most recent electrolytes, Bun and Creatinine done on: 08/16/2021 were within normal limits. Will repeat BMP patient advised to adhere to a low sodium diet, encouraged about medication compliance, counseled about weight loss. Hyperlipidemia 07/07/2011 Assessment & Plan (02/14/2024 4:16 PM EST): Pt here for a f/u Patient with elevated lipids. Most recent lipid profile from: 06/19/2023 shows Lab Results Component Value Date TRIG 158 (H) 06/19/2023 TRIG 131 07/05/2022 CHOL 127 06/19/2023 LDLCHOLCAL 66 06/19/2023 HDL 30 (L) 06/19/2023 Currently on a regimen of: Pravastatin 80mg po q pm . Refill sent . For now will continue with current regimen. advised to try to adhere to a low cholesterol diet, counseled and educated about diet and exercise, Patient encouraged to come up with a personal goal for weight loss. Assessment & Plan (08/21/2023 9:38 AM EDT): Pt here for a f/u Patient with elevated lipids. Most recent lipid profile from: 06/19/2023 shows Lab Results Component Value Date TRIG 158 (H) 06/19/2023 TRIG 131 07/05/2022 CHOL 127 06/19/2023 LDLCHOLCAL 66 06/19/2023 HDL 30 (L) 06/19/2023 Currently on a regimen of: Pravastatin 80mg po q pm . For now will continue with current regimen. advised to try to adhere to a low cholesterol diet, counseled and educated about diet and exercise, Patient encouraged to come up with a personal goal for weight loss. Assessment & Plan (08/01/2022 2:57 PM EDT): Pt here for a f/u Patient with elevated lipids. Most recent lipid profile from: 07/05/2022 shows a total cholesterol of: 117 triglycerides of: 131 HDL of: 37 and LDL of: 59 Currently on a regimen of: Pravastatin 80mg po q pm . For now will continue with current regimen. advised to try to adhere to a low cholesterol diet, counseled and educated about diet and exercise, Patient encouraged to come up with a personal goal for weight loss. Assessment & Plan (05/11/2022 12:40 PM EDT): Pt here for a f/u Patient with elevated lipids. Most recent lipid profile from: 09/05/2021 shows a total cholesterol of: 126 triglycerides of: 120 HDL of: 32 and LDL of: 73 Currently on a regimen of: Pravastatin 80mg po q pm . For now will continue with current regimen. Repeat Lipid profile advised to try to adhere to a low cholesterol diet, counseled and educated about diet and exercise, Patient encouraged to come up with a personal goal for weight loss. Type 2 diabetes mellitus 07/07/2011 Overview (05/21/2023): Pharmacotherapy Updated 05/21/2023 - Metformin 1000mg BID - Pioglitazone 45mg daily - Glipizide ER 5mg daily Statin: Yes, pravastatin 80mg daily Aspirin: Yes, aspirin 81mg daily Vitamin B12 1000mcg daily History: A1c historically under control; medications have been stable for >1 year Assessment & Plan (02/14/2024 4:14 PM EST): Pt here for a f/u regarding his DM Today controlled He is on a regimen of: Metformin 1000 mg po BID, Glipizide XL 5mg po daily and Actos 45 mg po daily Hgb A1c 02/14/2024: 6.2 from 6.5 Eye exam done by Dr. Hopper Microalbumin checked on: 06/19/2023 was: 15.3 Pt on an DANETTE inhibitor. Foot check risk of zero Pt reports compliance with ASA 81 mg po daily Plan: continue current regimen Pt advised to: adhere to diabetic diet Contine to monitor blood sugars regularly Check feet on a daily basis. Follow-up in 4 months Assessment & Plan (11/22/2023 11:32 AM EDT): Pt here for a f/u regarding his DM Today controlled He is on a regimen of: Metformin 1000 mg po BID, Glipizide XL 5mg po daily and Actos 45 mg po daily Hgb A1c 11/22/2023 : 6.5 Eye exam done by Dr. Hopper Microalbumin checked on: 06/19/2023 was: 15.3 Pt on an DANETTE inhibitor. Foot check risk of zero Pt reports compliance with ASA 81 mg po daily Plan: continue current regimen Pt advised to: adhere to diabetic diet Contine to monitor blood sugars regularly Check feet on a daily basis. Follow-up in 4 months Assessment & Plan (08/21/2023 11:34 AM EDT): Pt here for a f/u regarding his DM Today controlled He is on a regimen of: Metformin 1000 mg po BID, Glipizide XL 5mg po daily and Actos 45 mg po daily Hgb A1c 08/21/2023 : 7.1 from 6.5 Eye exam done by Dr. Hopper Microalbumin checked on: 06/19/2023 was: 15.3 Pt on an DANETTE inhibitor. Foot check risk of zero Pt reports compliance with ASA 81 mg po daily Plan: continue current regimen Pt advised to: adhere to diabetic diet Contine to monitor blood sugars regularly Check feet on a daily basis. Follow-up in 4 months Assessment & Plan (05/21/2023 1:20 PM EDT): Assessment: - A1c is at goal of A1c less than 7% AND fasting BG between 70-130 mg/dL per ADA guidelines. - On ASA: Y - On Statin: Y - Last Eye Exam: scheduled for 05/22/23 - Last Dental Exam: unknown Plan/ Recommendations: - Repeat A1c - continue with current therapy; f/u in 1 year Monitoring: Hemoglobin A1c (% of total Hgb) Date Value 08/16/2021 6.3 (H) 03/24/2020 6.0 (H) Hemoglobin A1C (%) Date Value 12/12/2022 6.5 (A) 08/01/2022 6.5 (A) LDL Cholesterol (mg/dL (calc)) Date Value 07/05/2022 59 HDL Cholesterol (mg/dL) Date Value 07/05/2022 37 (L) No results found for: B12 Assessment & Plan (04/19/2023 2:20 PM EST): Pt here for a f/u regarding his DM Today controlled He is on a regimen of: Metformin 1000 mg po BID, Glipizide XL 5mg po daily and Actos 45 mg po daily Hgb A1c 12/12/2022: 6.5 Eye exam done by Dr. Hopper Microalbumin checked on: 01/12/2021 was: 1.3 Pt on an DANETTE inhibitor , will repeat Foot check risk of zero Pt reports compliance with ASA 81 mg po daily Plan: continue current regimen Pt advised to: adhere to diabetic diet Contine to monitor blood sugars regularly Check feet on a daily basis. Follow-up in 4 months Assessment & Plan (12/12/2022 1:28 PM EDT): Pt here for a f/u regarding his DM Today controlled He is on a regimen of: Metformin 1000 mg po BID, Glipizide XL 10mg po daily and Actos 45 mg po daily Hgb A1c 12/12/2022: 6.5 Glucometer average 98 Eye exam done by Dr. Hopper Microalbumin checked on: 01/12/2021 was: 1.3 Pt on an DANETTE inhibitor , will repeat Foot check risk of zero Pt reports compliance with ASA 81 mg po daily Plan: Decrease Glipizide ER to 5 mg po daily Pt advised to: adhere to diabetic diet Contine to monitor blood sugars regularly Check feet on a daily basis. Follow-up in 4 months Assessment & Plan (08/01/2022 3:15 PM EDT): Pt here for a f/u DM controlled He is on a regimen of: Metformin 1000 mg po BID, Glipizide ER 10mg po daily and Actos 45 mg po daily Hgb A1c 08/01/2022: 6.5 glucometer average 104 Eye exam done by Dr. Hopper Microalbumin checked on: 01/12/2021 was: 1.3 Pt on an DANETTE inhibitor , will repeat Foot check risk of zero Pt reports compliance with ASA 81 mg po daily Plan: Continue current regimen Pt advised to: adhere to diabetic diet Contine to monitor blood sugars regularly Check feet on a daily basis. Follow-up in 4 months Assessment & Plan (05/11/2022 2:09 PM EDT): Pt here for a f/u DM controlled He is on a regimen of: Metformin 1000 mg po BID, Glipizide ER 10mg po daily and Actos 45 mg po daily Hgb A1c 02/2022 was 6.7 glucometer average 111 Eye exam done by Dr. Hopper Microalbumin checked on: 01/12/2021 was: 1.3 Pt on an DANETTE inhibitor , will repeat Foot check risk of zero Pt reports compliance with ASA 81 mg po daily Plan: Continue current regimen Pt advised to: adhere to diabetic diet Contine to monitor blood sugars regularly Check feet on a daily basis. Follow-up in 4 months Encounters Date Type Department Care Team Description 04/03/2024 Telephone [facility] [address] [place] [address] Balaji Quinones MD Results 03/25/2024 Refill [facility] [address] [place] [address] Balaji Quinones MD Primary hypertension 03/14/2024 Refill [facility] [address] [place], [place] [phone] Balaji Quinones MD Dry eyes 03/06/2024 Refill [facility] [address] [facility] [place] [address] Pam Lemons MD Tinea pedis of both feet 02/27/2024 Telephone [facility] [address] [facility] [place] [address] Balaji Quinones MD FYI 02/20/2024 Refill [facility] [address] [facility] [place] [address] Balaji Quinones MD Dermatitis of lower extremity 02/14/2024 11:30 AM EST Office Visit [facility] [address] [facility] [place] [address] Balaji Quinones MD Primary hypertension (Primary Dx); Type 2 diabetes mellitus without complication, without long-term current use of insulin (CMS/HCC); Aneurysm of ascending aorta without rupture (CMS/HCC); Syncope, unspecified syncope type; Type 2 diabetes mellitus without complication, unspecified whether fpc insulin use (CMS/HCC); Iron deficiency anemia, unspecified iron deficiency anemia type; Hypertension, unspecified type; Mixed hyperlipidemia 02/14/2024 Telephone [facility] [address] [facility] [place] [address] Balaji Quinones MD 02/14/2024 Telephone [facility] [address] [facility] [place] [address] Balaji Quinones MD Appointment Confirmation 02/14/2024 Travel 02/14/2024 Refill [facility] [address] [facility] [place] [address] Balaji Quinones MD Mixed hyperlipidemia; Type 2 diabetes mellitus without complication, unspecified whether tank terminal gauger insulin use (CMS/HCC); Iron deficiency anemia, unspecified iron deficiency anemia type; Hypertension, unspecified type 01/31/2024 Telephone [facility] [address] [place] [address] Balaji Quinones MD Chart Prep 01/28/2024 Telephone [facility] [address] [facility] [place] [address] Balaji Quinones MD Med Refill 01/25/2024 Refill [facility] [address] [place] [address] Balaji Quinones MD Folliculitis 01/09/2024 Refill [facility] [address] [place] [address] Balaji Quinones MD Tinea pedis of both feet from Last 3 Months Immunizations Name Administration Dates Next Due Influenza High-dose Quadriva lent Preservative Free 12/12/2022 Influenza injectable quadriv alent preservative free 01/03/2022,03/25/2021,11/05/2018,2017,01/16/2017 Influenza, High Dose Seasona l, Preservative Free 11/22/2023 Influenza, IIV3, injectable 12/25/2013, 1 Influenza, Split (incl. ginny fied surface antigen) 03/24/2013,01/19/2012 Pfizer Covid-19 Vaccine 12+ 11/22/2023,0 03/25/2021,09/21/2020,2020 Pneumococcal Conjugate PCV 20 05/15/2022 TD (adult), 2 Lf tetanus tox oid, preservative free, adsorbed 07/21/2021,05/08/2006 Tdap 10/04/2011 Zoster, Recombinant 07/17/2022,05/15/2022 Family History Medical History Relation Name Comments Hypertension Brother Anemia Father Cancer Father Hypertension Father Anemia Mother Cancer Mother Hypertension Mother Relation Name Status Comments Brother Father Mother Social History Tobacco Use Types Packs/Day Years Used Date Smoking Tobacco: Former Cigarettes Passive Smoke Exposure: Past Smokeless Tobacco: Never Tobacco Cessation:Counseling Given: Not Answered Alcohol Use Standard Drinks/Week Comments Never 0 [...] Don't know 12/12/2021 10 :18 AM EDT Last Filed Vital Signs Vital Sign Reading Time Taken Comments Blood Pressure 128/80 02/14/2024 11:18 AM EST Pulse 73 02/14/2024 11:18 AM EST Temperature 36.7 ??C (98 ??F) 02/14/2024 11:18 AM EST Respiratory Rate 20 02/14/2024 11:18 AM EST Oxygen Saturation 99% 02/14/2024 11:18 AM EST Inhaled Oxygen Concentration - - Weight 57.2 kg (126 lb 3.2 oz) 02/14/2024 11:18 AM EST Height 160 cm (5' 3 ) 02/14/2024 11:18 AM EST Body Mass Index 22.36 02/14/2024 11:18 AM EST Plan of Treatment Upcoming Encounters Date Type Department Care Team (Late st Contact Info) Description 05/27/2024 1:00 PM EDT Office Visit [facility] [address] [place] [address] Abdiel, Kaci, OD [address] [place] [address] 06/26/2024 1:15 PM EDT Office Visit [facility] [address] [place] [address] Balaji Quinones MD [address] [place] [address] Health Maintenance Due Date Last Done Comments CT Colonography 1955 FIT DNA/Cologuard 1955 FIT 1955 FOBT 1955 Sigmoidoscopy 1955 Diabetes: Foot Exam 1964 Depression Screening 04/18/2024 04/19/2023, 04/19/19 SDOH Screening 04/18/2024 04/19/2023 Diabetes: Urine Protein Screening 06/18/2024 06/19/2023, 01/12/2021, 11/03/2019 Lipid Panel 06/18/2024 06/19/2023, 06/13, 08/16/2021, Additional history exists Diabetes: Hemoglobin A1C 08/13/2024 025, 11/22/2023, 08/21/2023, Additional history exists Alcohol/Substance Use Screening 02/13/2025 02/14/2024 Tobacco Screening 02/13/2025 02/14/2024 Eye Exam 05/21/2025 05/22/2023, 04/0 10/2023, 05/22/2023, Additional history exists Colonoscopy 07/11/2027 07/10/2017 Colorectal Cancer Screening 07/11/2027 RSV Patients and Patients Aged 60 years or older (1 - 1-dose 75+ series) 2029 DTaP/Tdap/Td Vaccines (3 - Td or Tdap) 07/22/2031 07/21/2021, 10/04/2011, 05/08/2006 Pneumococcal Vaccine: 50+ Years Discontinued 05/15/2022 Hepatitis C Screening Completed 07/05/2022 Zoster Vaccines Completed 07/17/2022, 05/15/2022 COVID-19 Vaccine Completed 11/22/2023, 12/2021, 09/21/2020, Additional history exists Influenza Vaccine Completed 11/22/2023, , 01/03/2022, Additional history exists HIB Vaccines Aged Out No longer eligi ble based on patient's age to complete this topic HPV Vaccines Aged Out No longer eligi ble based on patient's age to complete this topic Hepatitis A Vaccines Aged Out No long er eligible based on patient's age to complete this topic Hepatitis B Vaccines Aged Out No long er eligible based on patient's age to complete this topic IPV Vaccines Aged Out No longer eligi ble based on patient's age to complete this topic Meningococcal Vaccine Aged Out No meredith manan eligible based on patient's age to complete this topic RSV under 20 months Aged Out No longe r eligible based on patient's age to complete this topic Rotavirus Vaccines Aged Out No longer eligible based on patient's age to complete this topic Goals Goal Patient Goal Type Associated Problems [...] 11:31 AM EST) No Kristi Giles PharmD Procedures Procedure Name Priority Date/Time Associated Diagnosis Comments CTA CHEST W AND WO CONTRAST Routine 04/03/2024 12:33 PM EST Aneurysm of ascending aorta without rupture (CMS/HCC) CT HEAD WO CONTRAST Routine 04/03/2024 1 0:11 AM EST Syncope, unspecified syncope type ECG 12-LEAD Routine 02/14/2024 4:18 PM EST Syncope, unspecified syncope type POCT GLYCATED HEMOGLOBIN, TOTAL Routine 02/14/2024 11:31 AM EST Type 2 diabetes mellitus without complication, without long-term current use of insulin (CMS/HCC) POCT GLUCOSE Routine 02/14/2024 11:28 AM EST Type 2 diabetes mellitus without complication, without long-term current use of insulin (CMS/HCC) LIPID PANEL WITH REFLEX TO DIRECT LDL Routine 06/19/2023 1:23 PM EDT Primary hypertension ALBUMIN, RANDOM URINE W/CREATININE Routine 06/19/2023 12:00 AM EDT Type 2 diabetes mellitus without complication, without long-term current use of insulin (CMS/HCC) HEPATITIS C AB W/REFL TO HCV RNA, QN, PCR Routine 07/05/2022 8:13 AM EDT Type 2 diabetes mellitus without complication, without long-term current use of insulin (CMS/HCC) HM COLONOSCOPY Routine 07/10/2017 from Last 3 Months or Most Recently Relevant to Health Maintenance Results * CTA Chest w/ and w/o Contrast (04/03/2024 12:33 PM EST) Anatomical Region Laterality Modality Body, Chest Computed Tomogra phy 04/03/2024 12:3 3 PM EST Narrative 04/03/2024 12:34 PM EST ? [facility] ?[address] ?[place] [address] ? CT Scan Report ? Signed with Addenda ? Patient: Alonso,Paul ?MR#: [id number] ?? 33 ? : 1955 ?Acct:[id number] ? Age/Sex: 68 / M ?ADM Date: 02/20/25 ? Loc: HO.CT ? Attending Dr: Balaji Sanderson MD ? Ordering Physician: Balaji Sanderson MD ?? Date of Service: 04/03/24 ?? Procedure(s): CT angio chest aorta ?? Accession Number(s): [id number] ? cc: Balaji Sanderson MD ? Report Number: ?? [id number]: Total DLP = ??212.27 mGy-cm ?ADDENDUM ?? This document has been electronically signed by: Neelam Acevedo MD on ?? 04/03/2024 12:33:34 ? ADDENDUM: ?? Receipt of this report by the clinical staff was confirmed with Ibeth Vargas, ?? R.N. on Apr 04, 2024 12:00:00 EST. ? This document has been electronically signed by: Jose Eduardo Nichols on ?? 04/04/2024 12:01:20 ? Addendum Dictated By: ?Neelam Acevedo MD ? Addendum Signed By: ? <Electronically signed by Neelam Acevedo MD in OV> ? 04/04/24 1202 ?? Addendum Cosigned By: ? DD/ ? TD/TT: 04/04/24 ? CLINICAL HISTORY: ascending aorta aneurysm follow up ? CT angiography chest with contrast. 3D Postprocessing. ? Comparison: 06/02/2022 ? Findings: ?? Stable heart size. ?? Motion limits accurate evaluation of the aorta. No definite evidence of ?? aortic dissection. Ectatic ascending thoracic aorta measuring up to 43 mm ?? in the axial plane versus 42 mm previously. Ectatic distal aortic arch ?? measuring up to 37 mm in width as before. ?? Enlarged left main pulmonary artery measuring up to 30 mm in width as ?? before. Query pulmonary arterial hypertension. ?? Subcentimeter hypodense right thyroid lobe nodule not definitely seen on ?? prior study. ?? 34 x 35 mm right paratracheal mass versus conglomerate lymphadenopathy, ?? new/mostly new from the prior study (on the prior exam there was s 10 x 8 ?? mm node at this level). ? The lungs are clear. ? Gallstones. ?? No acute fracture. ? IMPRESSION: ?? 34 x 35 mm right paratracheal mass versus conglomerate lymphadenopathy, ?? new/mostly new from the prior study (on the prior exam there was s 10 x 8 ?? mm node at this level). Neoplastic process can not be excluded and ?? appropriate workup recommended. ? Motion limits accurate evaluation of the aorta. No definite evidence of ?? aortic dissection. Ectatic ascending thoracic aorta measuring up to 43 mm ?? in the axial plane versus 42 mm previously. Ectatic distal aortic arch ?? measuring up to 37 mm in width as before. ? Query pulmonary arterial hypertension. ? This document has been electronically signed by: Neelam Acevedo MD on ?? 04/03/2024 12:33:34 ? Dictated By: ?Neelam Acevedo MD ? Signed By: ?<Electronically signed by Neelam Acevedo MD in OV> ? 04/03/24 1234 ? DD/ 1233 ? TD/TT: 04/03/24 1233 ? Activities Director Scouting: ? Procedure Note Donotesterinterpreter, Image - 04/04/[address] [address] [address] Scan Report Signed with Addenda Patient: Jayda Alonso#: [id number] 33 : 5Acct:[id number] Age/Sex: 68 / MADM Date: 04/03/24 Loc: HO.CT Attending Dr: Balaji Sanderson MD Ordering Physician: Balaji Sanderson MD Date of Service: 04/03/24 Procedure(s): CT angio chest aorta Accession Number(s): [id number] cc: Balaji Sanderson MD Report Number: [id number]: Total DLP = 212.27 mGy-cm ADDENDUM This document has been electronically signed by: Neelam Acevedo MD on 04/03/2024 12:33:34 ADDENDUM: Receipt of this report by the clinical staff was confirmed with Ibeth Vargas R.N. on Apr 04, 2024 12:00:00 EST. This document has been electronically signed by: Jose Eduardo Nichols on 04/04/2024 12:01:20 Addendum Dictated By: Neelam Acevedo MD Addendum Signed By: <Electronically signed by Neelam Acevedo MDin OV> 04/04/24 120 Addendum Cosigned By: DD/ TD/TT: 04/04/24 CLINICAL HISTORY: ascending aorta aneurysm follow up CT angiography chest with contrast. 3D Postprocessing. Comparison: 06/02/2022 Findings: Stable heart size. Motion limits accurate evaluation of the aorta. No definite evidence of aortic dissection. Ectatic ascending thoracic aorta measuring up to 43 mm in the axial plane versus 42 mm previously. Ectatic distal aortic arch measuring up to 37 mm in width as before. Enlarged left main pulmonary artery measuring up to 30 mm in width as before. Query pulmonary arterial hypertension. Subcentimeter hypodense right thyroid lobe nodule not definitely seen on prior study. 34 x 35 mm right paratracheal mass versus conglomerate lymphadenopathy, new/mostly new from the prior study (on the prior exam there was s 10 x 8 mm node at this level). The lungs are clear. Gallstones. No acute fracture. IMPRESSION: 34 x 35 mm right paratracheal mass versus conglomerate lymphadenopathy, new/mostly new from the prior study (on the prior exam there was s 10 x 8 mm node at this level). Neoplastic process can not be excluded and appropriate workup recommended. Motion limits accurate evaluation of the aorta. No definite evidence of aortic dissection. Ectatic ascending thoracic aorta measuring up to 43 mm in the axial plane versus 42 mm previously. Ectatic distal aortic arch measuring up to 37 mm in width as before. Query pulmonary arterial hypertension. This document has been electronically signed by: Neelam Acevedo MD on 04/03/2024 12:33:34 Dictated By: Neelam Acevedo MD Signed By: <Electronically signed by Neelam Acevedo MD in OV> 04/03/24 1234 DD/ 1233 TD/TT: 04/03/24 1233 Activities Director Scouting: us Balaji Donnelly MD IMG CT PROCEDURES Jaspal tennille Result - Final * CT Head w/o Contrast (04/03/2024 10:11 AM EST) Anatomical Region Laterality Modality Head, Neck Computed Tomogra phy 04/03/2024 10:1 1 AM EST Narrative 04/03/2024 10:12 AM EST ? [facility] ?[address] ?[place] [address] ? CT Scan Report ? Signed ? Patient: Alonso,Paul ?MR#: [id number] ?? 33 ? : 1955 ?Acct:[id number] ? Age/Sex: 68 / M ?ADM Date: 02/20/25 ? Loc: HO.CT ? Attending Dr: Balaji Sanderson MD ? Ordering Physician: Balaji Sanderson MD ?? Date of Service: 04/03/24 ?? Procedure(s): CT head/brain wo IV con ?? Accession Number(s): [id number] ? cc: Balaji Sanderson MD ? Report Number: ?? [id number]: Total DLP = ??672.66 mGy-cm ? CLINICAL HISTORY: syncope ? CT head without contrast ? Comparison: None ? Findings: ?? No intra-axial mass, midline shift, hydrocephalus, or acute hemorrhage. ?? Eapq-ev-pqsexjrk age-related cerebral hemispheric white matter changes. ?? 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 lateral aspects of the lentiform nuclei. ? Mild opacification of a few of the paranasal sinuses. ?? The orbits are unremarkable. ?? No skull fracture. ? IMPRESSION: ?? 1. No acute intracranial findings. ? This document has been electronically signed by: Neelam Acevedo MD on ?? 04/03/2024 10:11:03 ? Dictated By: ?Neelam Acevedo MD ? Signed By: ?<Electronically signed by Neelam Acevedo MD in OV> ? 04/03/24 1012 ? DD/ 1011 ? TD/TT: 04/03/24 1011 ? Activities Director Scouting: ? Procedure Note Tawana, Image - 04/03/[address] [place] [address] [address] Scan Report Signed Patient: Jayda Alonso#: [id number] 32 : 5Acct:[id number] Age/Sex: 68 / MADM Date: 04/03/24 Loc: HO.CT Attending Dr: Balaji Sanderson MD Ordering Physician: Balaji Sanderson MD Date of Service: 04/03/24 Procedure(s): CT head/brain wo IV con Accession Number(s): [id number] cc: Balaji Sanderson MD Report Number: [id number]: Total DLP = 672.66 mGy-cm CLINICAL HISTORY: syncope CT head without contrast Comparison: None Findings: No intra-axial mass, midline shift, hydrocephalus, or acute hemorrhage. Zcll-wa-tpzgrcqb age-related cerebral hemispheric white matter changes. 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 Mild opacification of a few of the paranasal sinuses. The orbits are unremarkable. No skull fracture. IMPRESSION: 1. No acute intracranial findings. This document has been electronically signed by: Neelam Acevedo MD on 04/03/2024 10:11:03 Dictated By: Neelam Acevedo MD Signed By: <Electronically signed by Neelam Acevedo MD in OV> 04/03/24 1012 DD/ 1011 TD/TT: 04/03/24 1011 Activities Director Scouting: Balaji Donnelly MD IMG CT PROCEDURES Fin al Result * ECG 12 lead (02/14/2024 4:18 PM EST) Narrative Balaji Quinones MD - 02/14/2024 4:18 PM EST Sinus arrhythmia, PACs, IVC delay Balaji Donnelly MD ECG ORDERABLES Final Result * (ABNORMAL) POCT HGB A1C (02/14/2024 11:31 AM EST) Hemoglobin A1C 6.6(A) 4.0 - 6.0 % QC Media Lot # [id number] Lot# Expiration Date ,026 Blood 02/14/2024 11:3 1 AM EST Balaji Donnelly MD POINT OF CARE TEST EN TER/EDIT ORDERABLES Final Result * POCT Glucose (02/14/2024 11:28 AM EST) Glucose Blood, POC 186 60 - 200 mg/dL QC Media Lot # [id number] Lot# Expiration Date 6242,[id number] Blood Capillary blood specimen / Unknown 02/14/2024 11:28 AM EST Balaji Donnelly MD POINT OF CARE TEST EN TER/EDIT ORDERABLES Final Result * (ABNORMAL) Lipid Panel with Reflex to Direct LDL (06/19/2023 1:23 PM EDT) Triglycerides 158(H) <150 mg/dL [facility] Comment:Desirable Triglyceri de: less than 150 mg/dLBorderline High Triglyceride 150-199 mg/dLHigh Triglyceride: 200-499 mg/dLVery High Triglyceride: greater than or equal to 5OO mg/dL Cholesterol 127 <200 mg/dL [facility] Comment:Desirable Cholestero l: less than 200 mg/dLBorderline High Cholesterol: 200-239 mg/dLHigh Cholesterol: greater than 239 mg/dL LDL Cholesterol Calculated 66 <100 mg/dL [facility] Comment:Desirable LDL: less than 100 mg/dLNear Optimal/Above Optimal LDL: 110- 129 mg/dLBorderline High LDL: 130-159 mg/dLHigh LDL: 160-189 mg/dLVery High LDL: greater than or equal to 190 mg/dL HDL Cholesterol 30(L) >40 mg/dL [facility] Comment:Desirable HDL: great er than 40 mg/dL Note: This HDL assay may give artificially low results in patients with liver disease. Blood 06/19/2023 1:23 PM EDT 06/19/2023 4:12 PM EDT Balaji Donnelly MD LAB BLOOD ORDERABLES Final Result [facility] [address] [place] [phone] * Albumin, Random Urine W/Creatinine (06/19/2023 12:00 AM EDT) Creatinine, Urine 137.18 mg/dL [facility] Microalbumin Urine 21.0 mg/L [facility] Microalbum Creatinine Ratio Ur 15.3 <30 ug/mg cr [facility] Comment:Albumin/Creatinine R atio Reference Ranges: Normal: < 30 ug/mg creatinine Microalbuminuria: 30 - 300 ug/mg creatinineClinical Albuminuria: > 300 ug/mg creatinine Urine (Urine, Random) 06/19/2023 06/19/2023 Balaji Donnelly MD LAB URINE ORDERABLES Final Result [facility] [address] [place] [phone] * Hepatitis C Antibody with Reflex to HCV, RNA, Quantitative, Real-Time PCR (07/05/2022 8:13 AM EDT) Hepatitis C Antibody NON-REACT MADDY NON-REACT MADDY [facility] Index 0.04 <1.00 [employer] [place] [facility] Comment: HCV antibody was non-reactive. There is no laboratory evidence of HCV infection. In most cases, no further action is required. However, if recent HCV exposure is suspected, a test for HCV RNA (test code 12746) is suggested. For additional information please refer to http://education.[employer]/faq/QBZ64v6 (This link is being provided for informational/ educational purposes only.) Blood Venous blood specimen / Unknown 07/05/2022 8:13 AM EDT 07/05/2022 8:14 AM EDT Narrative [facility] - 07/06/2022 11:54 AM EDT FASTING:YES FASTING: YES Balaji Donnelly MD LAB BLOOD ORDERABLES Final Result [facility] [address], [place] [address] [employer] [place] [facility] [address] [place] [phone] * Hm Colonoscopy (07/10/2017) Colonoscopy Normal Normal 07/10/2017 Narrative Shikha Turner - 07/10/2017 3:47 PM EDT Recommended 10 year follow up ( [facility] [place] Historical Provider HEALTH MAINTENANCE Final Result from Last 3 Months or Most Recently Relevant to Health Maintenance Insurance [facility] STANDARD MEDICARE Care Teams Rn Ostomy Relationship Specialty Start Date End Date Balaji Quinones MD [address] [place] [address] PCP - General Internal Medicine 11/25/13 Kristi Giles, PharmD [address] [place] [phone] Pharmacist Internal Medicine 01/30/22
--- OUTSIDE RECORDS SUMMARY | 2024-04-10 10:18 | XMS_ITS | Encounter Summary ---
Author Organization [facility] Address [address] [facility] [address] [place] [address] Care Team Providers Care Brand Lead Name Role Phone Balaji Quinones MD Primary Care Provide r Kristi Giles PharmD Unavailable [phone] Reason for Visit * Reason Onset Date Comments Durable Medical Equipment 01/30/2023 Encounter Details Date Type Department Care Team (Late st Contact Info) Description 01/30/2023 Telephone [facility] [address] [place] [address] Balaji Quinones MD [address] [place] [address] Durable Medical Equipment Social History Tobacco Use [...] and taking falls. Please contact pt @ [phone] Latvian Speaker documented in this encounter Plan of Treatment Upcoming Encounters Date Type Department Care Team (Late st Contact Info) Description 05/27/2024 1:00 PM EDT Office Visit [facility] [address] [place] [address] Kaci Meadows, OD [address] [place] [address] 06/26/2024 1:15 PM EDT Office Visit [facility] [address] [place] [address] Balaji Quinones MD [address] [place] [address] documented as of this encounter Goals Goal [...] Follow the DASH diet Diet No Kristi Giels PharmD Note: Look for foods that are low sodium. documented as of this encounter Visit Diagnoses Not on filedocumented in this encounter Care Teams Brand Lead Relationship Specialty Start Date End Date Balaji Quinones MD [address] [place] [address] PCP - General Internal Medicine 11/25/13 Kristi Giles PharmD [address] [place] [address] Pharmacist Internal Medicine 01/30/22 documented as of this encounter
--- OUTSIDE RECORDS SUMMARY | 2024-04-10 10:18 | XMS_ITS | Encounter Summary ---
Author Organization [employer] Address 75 [facility] 7t [place] [address] Care Team Providers Care Chronic Specialist Name Role Phone Balaji Quinones MD Primary Care Provide r Kristi Giles PharmD Unavailable [phone] Reason for Visit * Reason Comments Med Refill Encounter Details Date Type Department Care Team (Late Contact Info) Description 01/30/2023 Refill [facility] 230 [place] [address] Balaji Quinones MD 230 [place] [address] Social History Tobacco Use Types Packs/Day Years [...] Description 05/27/2024 1:00 PM EDT Office Visit [facility] OPTOMETRY [address] [place] [address] Kaci Meadows, OD 230 [place] [address] 06/26/2024 1:15 PM EDT Office Visit [facility] MEDICINE [address] [place] [address] Balaji Quinones MD [address] [place] [address] documented as of this encounter Goals Goal [...] on filedocumented in this encounter Care Teams Chronic Specialist Relationship Specialty Start Date End Date Balaji Quinones MD [address] [place] [address] PCP - General Internal Medicine 11/25/13 Kristi Giles PharmD [address] [place] [address] Pharmacist Internal Medicine 01/30/22 documented as of this encounter
--- OUTSIDE RECORDS SUMMARY | 2024-04-10 10:18 | XMS_ITS | Encounter Summary ---
Author Organization [employer] Address 75 [facility] 7t [place] [address] Care Team Providers Care Packing Room Inspector Name Role Phone Balaji Quinones MD Primary Care Provide r Kristi Giles PharmD Unavailable [phone] Reason for Visit * Reason Comments Med Refill Encounter Details Date Type Department Care Team (Late Contact Info) Description 01/30/2023 Refill [facility] 230 [place] [address] Balaji Quinones MD 230 [place] [address] Social History Tobacco Use Types Packs/Day Years [...] Visit [facility] OPTOMETRY [address] [place] [address] Kaci Meadows, OD 230 [place] [address] 06/26/2024 1:15 PM EDT Office Visit [facility] MEDICINE 230 [place] [address] Balaji Quinones MD [address] [place] [address] documented as of this encounter Goals Goal [...] on filedocumented in this encounter Care Teams Packing Room Inspector Relationship Specialty Start Date End Date Balaji Quinones MD [address] [place] [address] PCP - General Internal Medicine 11/25/13 Kristi Giles PharmD [address] [place] [address] Pharmacist Internal Medicine 01/30/22 documented as of this encounter
--- OUTSIDE RECORDS SUMMARY | 2024-04-10 10:18 | XMS_ITS | Encounter Summary ---
Author Organization [employer] Address 75 [facility] 7t [place] [address] Care Team Providers Care Asbestos Handler Name Role Phone Balaji Quinones MD Primary Care Provide r Kristi Giles PharmD Unavailable [phone] Reason for Visit * Reason Onset Date Comments Med Refill 01/30/2023 Encounter Details Date Type Department Care Team ([facility] st Contact Info) Description 01/30/2023 Telephone [facility] MEDICINE 230 [place] [address] Balaji Quinones MD 230 [place] [address] Med Refill Social History Tobacco Use Types [...] 81 MG EC tablet Please sent to [facility] - [place], [place] - [address] [facility] Pt is due on holidays but is requesting if medication could be given before than. documented in this encounter Plan of Treatment Upcoming Encounters Date Type Department Care Team (Late st Contact Info) Description 05/27/2024 1:00 PM EDT Office Visit [facility] OPTOMETRY [address] [place] [address] Kaci Meadows, OD 230 [place] [address] 06/26/2024 1:15 PM EDT Office Visit [facility] MEDICINE [address] [place] [address] Balaji Quinones MD 230 [place] [address] documented as of this encounter Goals Goal [...] on filedocumented in this encounter Care Teams Asbestos Handler Relationship Specialty Start Date End Date Balaji Quinones MD 230 [place] [address] PCP - General Internal Medicine 11/25/13 Kristi Giles, PharmD [address] [place] [address] Pharmacist Internal Medicine 01/30/22 documented as of this encounter
--- OUTSIDE RECORDS SUMMARY | 2024-04-10 10:18 | XMS_ITS | Encounter Summary ---
Author Organization [employer] Address 75 [facility] 7t [place] [address] Care Team Providers Care Cardiology Tech Name Role Phone Balaji Quinones MD Primary Care Provide r Kristi Giles PharmD Unavailable [phone] Reason for Visit * Reason Comments Med Refill Encounter Details Date Type Department Care Team (Late Contact Info) Description 12/30/2022 Refill [facility] 230 [place] [address] Balaji Quinones MD 230 [place] [address] Tinea pedis of both feet Social History [...] Office Visit [facility] OPTOMETRY [address] [place] [address] Kaci Meadows, OD 230 [place] [address] 06/26/2024 1:15 PM EDT Office Visit [facility] MEDICINE 230 [place] [address] Balaji Quinones MD 230 [place] [address] documented as of this encounter Goals Goal [...] feet documented in this encounter Care Teams Cardiology Tech Relationship Specialty Start Date End Date Balaji Quinones MD 230 [place] [address] PCP - General Internal Medicine 11/25/13 Kristi Giles PharmD 230 [place] [address] Pharmacist Internal Medicine 01/30/22 documented as of this encounter
[2024-04-10 10:41] LABS: Erythrocyte Sedimentation Rate 7 MM/HR (0-15)
[2024-04-10 10:51] LABS: Thyroid Stimulating Hormone 2.59 uIU/mL (0.32-4.0)
== END 2024-04-10 09:20 | disposition home or self-care (01) ==
LOC: HO.LAB 09:19
PROVIDERS: PCP Internal Medicine; Visit Provider Psychiatry & Neurology Neurology
DX: H05.20 Unspecified exophthalmos (principal)
CPT/HCPCS: 36415; 84443; 85652

== ENCOUNTER 2024-04-16 08:14 | Outpatient (AMB) | payer MEDICARE, MEDICAID, SELFPAY ==
--- OUTSIDE RECORDS SUMMARY | 2024-04-16 08:33 | XMS_ITS | Encounter Summary ---
Author Organization [employer] Address [address] [facility] [address] 7t [place] [address] Care Team Providers Care Shop Manager Name Role Phone Balaji Quinones MD Primary Care Provide r Kristi Giles PharmD Unavailable [phone] Reason for Visit * Reason Comments Med Refill Encounter Details Date Type Department Care Team (Late st Contact Info) Description 06/11/[address] [facility] [address] [place] [address] Balaji Quinones MD [address] [place] [address] Swelling of right middle finger Social History [...] 05/27/2024 1:00 PM EDT Office Visit [facility] OPTOMETRY 267 [place] [address] Abdiel, Kaci, OD 230 [place] [address] 06/26/2024 1:15 PM EDT Office Visit [facility] MEDICINE 230 [place] [address] Balaji Quinones MD 230 [place] [address] documented as of this encounter Goals Goal [...] documented as of this encounter Care Teams Shop Manager Relationship Specialty Start Date End Date Balaji Quinones MD [address] [place] [address] PCP - General Internal Medicine 11/25/13 Kristi Giles, SarayD [address] [place] [address] Pharmacist Internal Medicine 01/30/22 documented as of this encounter
--- OUTSIDE RECORDS SUMMARY | 2024-04-16 08:33 | XMS_ITS | Encounter Summary ---
Author Organization [employer] Address 75 [facility] 7t [place] [address] Care Team Providers Care Public Health Analyst Name Role Phone Balaji Quinones MD Primary Care Provide r Kristi Giles PharmD Unavailable [phone] Encounter Details Date Type Department Care Team ([facility] Contact Info) Description 01/28/2022 Abstract [facility] MEDICINE 230 [place] [address] Kristi Giles, PharmD [address] [place] [address] Social History Tobacco Use Types Packs/Day Years [...] Description 05/27/2024 1:00 PM EDT Office Visit [facility] OPTOMETRY [address] [place] [address] Kaci Meadows, OD 230 [place] [address] 06/26/2024 1:15 PM EDT Office Visit [facility] MEDICINE [address] [place] [address] Balaji Quinones MD [address] [place] [address] documented as of this encounter Goals Goal [...] on filedocumented in this encounter Care Teams Public Health Analyst Relationship Specialty Start Date End Date Balaji Quinones MD [address] [place] [address] PCP - General Internal Medicine 11/25/13 Kristi Giles PharmD [address] [place] [address] Pharmacist Internal Medicine 01/30/22 documented as of this encounter
--- OUTSIDE RECORDS SUMMARY | 2024-04-16 08:33 | XMS_ITS | Encounter Summary ---
Author Organization [employer] Address [address] [facility] [address] 7t [place] [address] Care Team Providers Care Rodding Machine Tender Name Role Phone Balaji Quinones MD Primary Care Provide r Kristi Giles PharmD Unavailable [phone] Reason for Visit * Reason Comments Med Refill Encounter Details Date Type Department Care Team ([facility] st Contact Info) Description 06/25/[address] [facility] 230 [place] [address] Balaji Quinones MD 230 [place] [address] Folliculitis Social History Tobacco Use Types Packs/Day [...] Visit [facility] OPTOMETRY [address] [place] [address] Abdiel, Kaci, OD 230 [place] [address] 06/26/2024 1:15 PM EDT Office Visit [facility] MEDICINE 230 [place] [address] Balaji Quinones MD 230 [place] [address] documented as of this encounter Goals Goal [...] documented as of this encounter Care Teams Rodding Machine Tender Relationship Specialty Start Date End Date Balaji Quinones MD 230 [place] [address] PCP - General Internal Medicine 11/25/13 Kristi Giles, Quentin 230 [place] [address] Pharmacist Internal Medicine 01/30/22 documented as of this encounter
--- OUTSIDE RECORDS SUMMARY | 2024-04-16 08:33 | XMS_ITS | Encounter Summary ---
Author Organization [employer] Address 75 [facility] 7t [place] [address] Care Team Providers Care Charge Account Authorizer Name Role Phone Balaji Quinones MD Primary Care Provide r Kristi Giles PharmD Unavailable [phone] Reason for Visit * Reason Comments Med Refill Encounter Details Date Type Department Care Team (Late st Contact Info) Description 09/17/2022 Refill [facility] 230 [place] [address] Balaji Quinones MD 230 [place] [address] Dry eyes Social History Tobacco Use Types [...] [facility] [address] [place] [address] Kaci Meadows, OD 230 [place] [address] 06/26/2024 1:15 PM EDT Office Visit [facility] MEDICINE [address] [place] [address] Balaji Quinones MD [address] [place] [address] documented as of this encounter Goals Goal [...] insufficiency documented in this encounter Care Teams Charge Account Authorizer Relationship Specialty Start Date End Date Balaji Quinones MD [address] [place] [address] PCP - General Internal Medicine 11/25/13 Kristi Giles PharmD [address] [place] [address] Pharmacist Internal Medicine 01/30/22 documented as of this encounter
--- OUTSIDE RECORDS SUMMARY | 2024-04-16 08:33 | XMS_ITS | Encounter Summary ---
Author Organization [employer] Address [address] [facility] [address] 7t [place] [address] Care Team Providers Care Cigar Inspector Name Role Phone Balaji Quinones MD Primary Care Provide r Kristi Giles PharmD Unavailable [phone] Reason for Visit * Reason Comments Med Refill Encounter Details Date Type Department Care Team ([facility] st Contact Info) Description 04/19/2023 Refill [facility] MEDICINE [address] [place] [address] Balaji Quinones MD 230 [place] [address] Primary hypertension; Folliculitis Social History Tobacco Use [...] 05/27/2024 1:00 PM EDT Office Visit [facility] OPTOMETRY [address] [place] [address] Abdiel, Kaci, OD 230 [place] [address] 06/26/2024 1:15 PM EDT Office Visit [facility] MEDICINE [address] [place] [address] Balaji Quinones MD 230 [place] [address] documented as of this encounter Goals Goal [...] documented as of this encounter Care Teams Cigar Inspector Relationship Specialty Start Date End Date Balaji Quinones MD 230 [place] [address] PCP - General Internal Medicine 11/25/13 Kristi Giles, SarayD 230 [place] [address] Pharmacist Internal Medicine 01/30/22 documented as of this encounter
--- OUTSIDE RECORDS SUMMARY | 2024-04-16 08:33 | XMS_ITS | Encounter Summary ---
Author Organization [employer] Address 75 [facility] 7t [place] [address] Care Team Providers Care Traffic Administrator Name Role Phone Balaji Quinones MD Primary Care Provide r Kristi Giles PharmD Unavailable [phone] Encounter Details Date Type Department Care Team ([facility] Contact Info) Description 06/22/[address] [facility] MEDICINE 230 [place] [address] Balaji Quinones MD 230 [place] [address] Social History Tobacco Use Types Packs/Day Years [...] Upcoming Encounters Date Type Department Care Team ([facility] Contact Info) Description 05/27/2024 1:00 PM EDT Office Visit [facility] OPTOMETRY [address] [place] [address] Abdiel, Kaci, OD 230 [place] [address] 06/26/2024 1:15 PM EDT Office Visit [facility] MEDICINE [address] [place] [address] Balaji Quinones MD 230 [place] [address] documented as of this encounter Goals Goal [...] EDT Recommended 10 year follow up ( [facility] ) us Historical Provider HEALTH MAINTENANCE Final Result documented in this encounter Visit Diagnoses Not on filedocumented in this encounter Care Teams Traffic Administrator Relationship Specialty Start Date End Date Balaji Quinones MD 230 [place] [address] PCP - General Internal Medicine 11/25/13 Kristi Giles PharmD [address] [place], [place] [phone] Pharmacist Internal Medicine 01/30/22 documented as of this encounter
--- OUTSIDE RECORDS SUMMARY | 2024-04-16 08:33 | XMS_ITS | Encounter Summary ---
Author Organization [employer] Address 75 [facility] 7t [place] [address] Care Team Providers Care Delivery Crew Worker Name Role Phone Balaji Quinones MD Primary Care Provide r Kristi Giles PharmD Unavailable [phone] Encounter Details Date Type Department Care Team (Late Contact Info) Description 09/08/2022 [facility] Health Information Management 230 [place] [address] Balaji Quinones MD 230 [place] [address] Social History Tobacco Use Types Packs/Day Years [...] [facility] OPTOMETRY [address] [place] [address] Kaci Meadows, OD 230 [place] [address] 06/26/2024 1:15 PM EDT Office Visit [facility] MEDICINE 230 [place] [address] Balaji Quinones MD 230 [place] [address] documented as of this encounter Goals Goal [...] on filedocumented in this encounter Care Teams Delivery Crew Worker Relationship Specialty Start Date End Date Balaji Quinones MD [address] [place] [address] PCP - General Internal Medicine 11/25/13 Kristi Giles PharmD [address] [place] [address] Pharmacist Internal Medicine 01/30/22 documented as of this encounter
--- OUTSIDE RECORDS SUMMARY | 2024-04-16 08:33 | XMS_ITS | Encounter Summary ---
Author Organization [employer] Address [address] [facility] [address] 7t [place] [address] Care Team Providers Care Administrative Operations Coordinator Name Role Phone Balaji Quinones MD Primary Care Provide r Kristi Giles PharmD Unavailable [phone] Reason for Visit * Reason Comments Med Refill Encounter Details Date Type Department Care Team ([facility] st Contact Info) Description 08/01/[address] [facility] 230 [place] [address] Vani Stallworth MD 230 [place] [address] Folliculitis Social History Tobacco Use Types Packs/Day [...] Description 05/27/2024 1:00 PM EDT Office Visit [facility] OPTOMETRY [address] [place] [address] Abdiel, Kaci, OD 230 [place] [address] 06/26/2024 1:15 PM EDT Office Visit [facility] MEDICINE [address] [place] [address] Balaji Quinones MD 230 [place] [address] documented as of this encounter Goals Goal [...] documented as of this encounter Care Teams Administrative Operations Coordinator Relationship Specialty Start Date End Date Balaji Quinones MD [address] [place] [address] PCP - General Internal Medicine 11/25/13 Kristi Giles, SarayD [address] [place] [address] Pharmacist Internal Medicine 01/30/22 documented as of this encounter
--- OUTSIDE RECORDS SUMMARY | 2024-04-16 08:34 | XMS_ITS | Encounter Summary ---
Author Organization [employer] Address 75 [facility] 7t [place] [address] Care Team Providers Care Transport Aircrewman Name Role Phone Balaji Quinones MD Primary Care Provide r Kristi Giles PharmD Unavailable [phone] Reason for Visit * Reason Comments Med Refill Encounter Details Date Type Department Care Team (Late st Contact Info) Description 10/27/2022 Refill [facility] 230 [place] [address] Clau Pascual ANP 230 [place] [address] Tinea pedis of both feet Social History [...] Description 05/27/2024 1:00 PM EDT Office Visit [facility] OPTOMETRY [address] [place] [address] Kaci Meadows, OD 230 [place] [address] 06/26/2024 1:15 PM EDT Office Visit [facility] MEDICINE [address] [place] [address] Balaji Quinones MD [address] [place] [address] documented as of this encounter Goals Goal [...] feet documented in this encounter Care Teams Transport Aircrewman Relationship Specialty Start Date End Date Balaji Quinones MD [address] [place] [address] PCP - General Internal Medicine 11/25/13 Kristi Giles PharmD [address] [place] [address] Pharmacist Internal Medicine 01/30/22 documented as of this encounter
--- OUTSIDE RECORDS SUMMARY | 2024-04-16 08:34 | XMS_ITS | Encounter Summary ---
Author Organization [employer] Address 75 [facility] 7t [place] [address] Care Team Providers Care Director Of Group Counseling Program Name Role Phone Balaji Quinones MD Primary Care Provide r Kristi Giles PharmD Unavailable [phone] Reason for Visit * Reason Comments Med Refill Encounter Details Date Type Department Care Team ([facility] st Contact Info) Description 03/14/2024 Refill [facility] MEDICINE [address] [place] [address] Balaji Quinones MD 230 [place] [address] Dry eyes Social History Tobacco Use Types [...] 05/27/2024 1:00 PM EDT Office Visit [facility] OPTOMETRY [address] [place] [address] Abdiel, Kaci, OD 230 [place] [address] 06/26/2024 1:15 PM EDT Office Visit [facility] MEDICINE [address] [place] [address] Balaji Quinones MD 230 [place] [address] documented as of this encounter Goals Goal [...] documented as of this encounter Care Teams Director Of Group Counseling Program Relationship Specialty Start Date End Date Balaji Quinones MD 230 [place], [place] [phone] PCP - General Internal Medicine 11/25/13 Kristi Giles PharmD 230 [place], [place] [phone] Pharmacist Internal Medicine 01/30/22 documented as of this encounter
--- OUTSIDE RECORDS SUMMARY | 2024-04-16 08:34 | XMS_ITS | Encounter Summary ---
Author Organization [employer] Address 75 [facility] 7t [place] [address] Care Team Providers Care Diamond Wheel Edger Name Role Phone Balaji Quinones MD Primary Care Provide r Kristi Giles PharmD Unavailable [phone] Reason for Visit * Reason Comments Med Refill Encounter Details Date Type Department Care Team (Late Contact Info) Description 01/30/2023 Refill [facility] [address] [place] [address] Balaji Quinones MD 230 [place] [address] Social History Tobacco Use Types Packs/Day Years [...] Description 05/27/2024 1:00 PM EDT Office Visit [facility] OPTOMETRY [address] [place] [address] Kaci Meadows, OD 230 [place] [address] 06/26/2024 1:15 PM EDT Office Visit [facility] MED[facility] [address] [place] [address] Balaji Quinones MD [address] [place] [address] documented as of this encounter Goals Goal [...] on filedocumented in this encounter Care Teams Diamond Wheel Edger Relationship Specialty Start Date End Date Balaji Quinones MD [address] [place] [address] PCP - General Internal Medicine 11/25/13 Kristi Giles PharmD [address] [place] [address] Pharmacist Internal Medicine 01/30/22 documented as of this encounter
--- OUTSIDE RECORDS SUMMARY | 2024-04-16 08:34 | XMS_ITS | Encounter Summary ---
Author Organization [employer] Address 75 [facility] 7t [place] [address] Care Team Providers Care Kinesiotherapist Name Role Phone Balaji Quinones MD Primary Care Provide r Kristi Giles PharmD Unavailable [phone] Reason for Visit * Reason Onset Date Comments Results 04/15/2024 Encounter Details Date Type Department Care Team ([facility] st Contact Info) Description 04/15/2024 Telephone [facility] MEDICINE 230 [place] [address] Balaji Quinones MD [address] [place] [address] Results Social History Tobacco Use Types Packs/Day [...] Telephone Encounter - Ibeth Gray RN - 04/15/2024 10:49 AM EST TC placed to pt with [facility] naphthol soaping machine operator #[id number] to inform of the pt CTA chest results below as interpreted by PCP. Pt agreeable to the findings and advised that a referral has been placed to Ki Castaneda in pulmonology for further evaluation and assessment. Pt informed to expect a call to schedule this appt --Dr Grimes CTA chest showed an incidental finding of 34 x 35 mm right paratracheal mass VS conglomerate lymphadenopathy. Please contact patient and let him know I will be referring to a specialist for evaluation * Telephone Encounter - Tang Ayers - 04/15/2024 10:01 AM EST Tc from pt returning call regarding prior message. Contact pt at [phone] * Telephone Encounter - Lilly Rice RN - 04/15/2024 8:54 AM EST Telephone call x1 to pt to advise of results and referral, no answer, left voicemail to call back [facility]. Will task to call again. --Dr Grimes CTA chest showed an incidental finding of 34 x 35 mm right paratracheal mass VS conglomerate lymphadenopathy. Please contact patient and let him know I will be referring to a specialist for evaluation documented in this encounter Plan of Treatment Upcoming Encounters Date Type Department Care Team (Late st Contact Info) Description 05/27/2024 1:00 PM EDT Office Visit [facility] OPTOMETRY [address] [place] [address] Kaci Meadows, OD 230 [place] [address] 06/26/2024 1:15 PM EDT Office Visit [facility] MEDICINE 230 [place] [address] Balaji Quinones MD [address] [place] [address] documented as of this encounter Goals Goal [...] documented as of this encounter Care Teams Kinesiotherapist Relationship Specialty Start Date End Date Balaji Quinones MD 230 [place] [address] PCP - General Internal Medicine 11/25/13 Kristi Giles, SarayD [address] [place] [address] Pharmacist Internal Medicine 01/30/22 documented as of this encounter
--- OUTSIDE RECORDS SUMMARY | 2024-04-16 08:34 | XMS_ITS | Encounter Summary ---
Author Organization [employer] Address 75 [facility] 7t [place] [address] Care Team Providers Care Internet Salesperson Name Role Phone Balaji Quinones MD Primary Care Provide r Kristi Giles PharmD Unavailable [phone] Reason for Visit * Reason Comments Med Refill Encounter Details Date Type Department Care Team ([facility] st Contact Info) Description 03/25/2024 Refill [facility] [address] [place] [address] Balaji Quinones MD [address] [place] [address] Primary hypertension Social History Tobacco Use Types [...] Description 05/27/2024 1:00 PM EDT Office Visit [facility] OPT[facility] [address] [place] [address] Abdiel, Kaci, OD 230 [place] [address] 06/26/2024 1:15 PM EDT Office Visit [facility] [address] [place] [address] Balaji Quinones MD [address] [place] [address] documented as of this encounter Goals Goal [...] documented as of this encounter Care Teams Internet Salesperson Relationship Specialty Start Date End Date Balaji Quinones MD [address] [place] [address] PCP - General Internal Medicine 11/25/13 Kristi Giles, SarayD [address] [place] [address] Pharmacist Internal Medicine 01/30/22 documented as of this encounter
--- OUTSIDE RECORDS SUMMARY | 2024-04-16 08:34 | XMS_ITS | Encounter Summary ---
Author Organization [employer] Address 75 [facility] 7t [place] [address] Care Team Providers Care Bowling Pin Setters Installer Name Role Phone Balaji Quinones MD Primary Care Provide r Kristi Giles PharmD Unavailable [phone] Reason for Visit * Reason Comments Med Refill Encounter Details Date Type Department Care Team (Late Contact Info) Description 03/08/2023 Refill [facility] 230 [place] [address] Balaji Quinones MD [address] [place] [address] Folliculitis Social History Tobacco Use Types Packs/Day [...] [facility] OPT[facility] [address] [place] [address] Kaci Meadows, OD 230 [place] [address] 06/26/2024 1:15 PM EDT Office Visit [facility] [address] [place] [address] Balaji Quinones MD [address] [place] [address] documented as of this encounter Goals Goal [...] follicles documented in this encounter Care Teams Bowling Pin Setters Installer Relationship Specialty Start Date End Date Balaji Quinones MD [address] [place] [address] PCP - General Internal Medicine 11/25/13 Kristi Giles PharmD [address] [place] [address] Pharmacist Internal Medicine 01/30/22 documented as of this encounter
--- OUTSIDE RECORDS SUMMARY | 2024-04-16 08:34 | XMS_ITS | Encounter Summary ---
Author Organization [employer] Address 75 [facility] 7t [place] [address] Care Team Providers Care Hand Silvering Supervisor Name Role Phone Balaji Quinones MD Primary Care Provide r Kristi Giles PharmD Unavailable [phone] Reason for Visit * Reason Onset Date Comments Results 04/03/2024 Encounter Details Date Type Department Care Team ([facility] st Contact Info) Description 04/03/[address] [facility] MEDICINE [address] [place] [address] Balaji Quinones MD 230 [place] [address] Results Social History Tobacco Use Types Packs/Day [...] needs a call back from the PCP weight count operator in regards to the pt most [...] requesting a call back from nurses or DIE HARDENER regarding results from CTA Chest. Tool And Fixture Repairer provides fax number to [facility]. documented in this encounter Plan of Treatment Upcoming Encounters Date Type Department Care Team (Late st Contact Info) Description 05/27/2024 1:00 PM EDT Office Visit [facility] OPTOMETRY [address] [place] [address] Kaci Meadows, OD 230 [place] [address] 06/26/2024 1:15 PM EDT Office Visit [facility] MEDICINE [address] [place] [address] Balaji Quinones MD 230 [place] [address] documented as of this encounter Goals Goal [...] documented as of this encounter Care Teams Hand Silvering Supervisor Relationship Specialty Start Date End Date Balaji Quinones MD 230 [place] [address] PCP - General Internal Medicine 11/25/13 Kristi Giles PharmD 230 [place] [address] Pharmacist Internal Medicine 01/30/22 documented as of this encounter
--- OUTSIDE RECORDS SUMMARY | 2024-04-16 08:34 | XMS_ITS | Encounter Summary ---
Author Organization [employer] Address 75 [facility] 7t [place] [address] Care Team Providers Care Cruise Staff Member Name Role Phone Balaji Quinones MD Primary Care Provide r Kristi Giles PharmD Unavailable [phone] Reason for Visit * Reason Comments Med Refill Encounter Details Date Type Department Care Team (Late st Contact Info) Description 10/27/2022 Refill [facility] MEDICINE 230 [place] [address] Balaji Quinones MD [address] [place] [address] Dermatitis of lower extremity Social History Tobacco [...] [facility] OPTOMETRY [address] [place] [address] Kaci Meadows, OD 230 [place] [address] 06/26/2024 1:15 PM EDT Office Visit [facility] MEDICINE [address] [place] [address] Balaji Quinones MD [address] [place] [address] documented as of this encounter Goals Goal [...] extremity documented in this encounter Care Teams Cruise Staff Member Relationship Specialty Start Date End Date Balaji Quinones MD [address] [place] [address] PCP - General Internal Medicine 11/25/13 Kristi Giles PharmD [address] [place] [address] Pharmacist Internal Medicine 01/30/22 documented as of this encounter
--- OUTSIDE RECORDS SUMMARY | 2024-04-16 08:34 | XMS_ITS | Encounter Summary ---
Author Organization [employer] Address 75 [facility] 7t [place] [address] Care Team Providers Care Waiter/Waitress Room Service Name Role Phone Balaji Quinones MD Primary Care Provide r Kristi Giles PharmD Unavailable [phone] Reason for Visit * Reason Comments Med Refill Encounter Details Date Type Department Care Team (Late Contact Info) Description 03/01/2023 Refill [facility] 230 [place] [address] Balaji Quinones MD 230 [place] [address] Type 2 diabetes mellitus without complication, unspecified whether terminal press operator insulin use ([facility] Social History Tobacco Use Types Packs/Day Years [...] 05/27/2024 1:00 PM EDT Office Visit [facility] OPTOMETRY [address] [place] [address] Abdiel, Kaci, OD 230 [place] [address] 06/26/2024 1:15 PM EDT Office Visit [facility] MED[facility] 230 [place] [address] Balaji Quinones MD [address] [place] [address] documented as of this encounter Goals Goal [...] 2 diabetes mellitus without complication, unspecified whether intermediate insulin use ([facility]) documented in this encounter Care Teams Waiter/Waitress Room Service Relationship Specialty Start Date End Date Balaji Quinones MD [address] [place] [address] PCP - General Internal Medicine 11/25/13 Kristi Giles PharmD [address] [place] [address] Pharmacist Internal Medicine 01/30/22 documented as of this encounter
--- OUTSIDE RECORDS SUMMARY | 2024-04-16 08:34 | XMS_ITS | Encounter Summary ---
Author Organization [employer] Address 75 [facility] 7t [place] [address] Care Team Providers Care Icing Mixer Name Role Phone Balaji Quinones MD Primary Care Provide r Kristi Giles PharmD Unavailable [phone] Reason for Visit * Reason Onset Date Comments Med Refill 01/30/2023 Encounter Details Date Type Department Care Team ([facility] st Contact Info) Description 01/30/2023 Telephone [facility] MEDICINE [address] [place] [address] Balaji Quinones MD [address] [place] [address] Med Refill Social History Tobacco Use Types [...] 81 MG EC tablet Please sent to [facility] - [place], [place] - [address] [facility] Pt is due on holidays but is requesting if medication could be given before than. documented in this encounter Plan of Treatment Upcoming Encounters Date Type Department Care Team (Late st Contact Info) Description 05/27/2024 1:00 PM EDT Office Visit [facility] OPTOMETRY [address] [place] [address] Kaci Meadows, OD 230 [place] [address] 06/26/2024 1:15 PM EDT Office Visit [facility] MEDICINE [address] [place] [address] Balaji Quinones MD [address] [place] [address] documented as of this encounter Goals Goal [...] on filedocumented in this encounter Care Teams Icing Mixer Relationship Specialty Start Date End Date Balaji Quinones MD 230 [place] [address] PCP - General Internal Medicine 11/25/13 Kristi Giles, PharmD [address] [place] [address] Pharmacist Internal Medicine 01/30/22 documented as of this encounter
--- OUTSIDE RECORDS SUMMARY | 2024-04-16 08:34 | XMS_ITS | Encounter Summary ---
Author Organization [employer] Address 75 [facility] 7t [place] [address] Care Team Providers Care Wad Lubricator Name Role Phone Balaji Quinones MD Primary Care Provide r Kristi Giles PharmD Unavailable [phone] Reason for Referral * Consultation (Urgent) - Authorized Specialty Diagnoses / Procedures Referred By Yaya aponte Referred To Contact Pulmonary Disease Diagnoses Mass in neck Balaji Quinones MD [address] [place] [address] Phone: tel: fax: Ki Castaneda [address] [place] [address] Phone: tel: Referral ID Status Reason Start Date Expiration Date Visits Requested Visits Authorized [id number] Authorized Specialty Services Required 04/14/2024 04/14/2025 1 1 Encounter Details Date Type Department Care Team ([facility] st Contact Info) Description 04/14/2024 Orders Only [facility] MEDICINE [address] [place] [address] Balaji Quinones MD [address] [place] [address] Mass in neck (Primary Dx) Social History Tobacco Use Types Packs/Day Years [...] Office Visit [facility] OPTOMETRY [address] [place] [address] Kaci Meadows, OD 230 [place] [address] 06/26/2024 1:15 PM EDT Office Visit [facility] MEDICINE [address] [place] [address] Balaji Quinones MD [address] [place] [address] Scheduled Referrals Name Type Priority Associated Diagnoses Order Schedule Referral to Pulmonology Outpatient Referral Urgent Mass in neck Expected: 04/14/2024 (Approximate), Expires: 04/14/2025 documented as of this encounter Goals Goal [...] as of this encounter Visit Diagnoses Diagnosis Mass in neck- Primary documented in this encounter Additional Health Concerns Assessment Noted Time PHQ-9 Depression Total Score: 1 04/19/19 24 1:30 PM EST documented as of this encounter Care Teams Wad Lubricator Relationship Specialty Start Date End Date Balaji Quinones MD [address] [place] [address] PCP - General Internal Medicine 11/25/13 Kristi Giles PharmD [address] [place] [address] Pharmacist Internal Medicine 01/30/22 documented as of this encounter
--- OUTSIDE RECORDS SUMMARY | 2024-04-16 08:34 | XMS_ITS | Encounter Summary ---
Author Organization [employer] Address [address] [facility] [address] [place] [address] Care Team Providers Care Sand Conditioner Machine Name Role Phone Balaji Quinones MD Primary Care Provide r Kristi Giles PharmD Unavailable [phone] Reason for Visit * Reason Comments Med Refill Encounter Details Date Type Department Care Team (Late Contact Info) Description 05/11/2022 Refill [facility] [address] [place] [address] Balaji Quinones MD 230 [place] [address] Swelling of right middle finger Social History [...] 1:00 PM EDT Office Visit [facility] OPTOMETRY [address] [place] [address] AbdielKaci yi, OD 230 [place] [address] 06/26/2024 1:15 PM EDT Office Visit [facility] MEDICINE [address] [place], [place] [phone] Balaji Quinones MD 230 [place] [address] documented as of this encounter Goals Goal [...] finger documented in this encounter Care Teams Sand Conditioner Machine Relationship Specialty Start Date End Date Balaji Quinones MD [address] [place] [id number] PCP - General Internal Medicine 11/25/13 Kristi Giles PharmD [address] [place] [address] Pharmacist Internal Medicine 01/30/22 documented as of this encounter
--- OUTSIDE RECORDS SUMMARY | 2024-04-16 08:34 | XMS_ITS | Encounter Summary ---
Author Organization [employer] Address 75 [facility] 7t [place] [address] Care Team Providers Care Wad Compressor Operator Adjuster Name Role Phone Balaji Quinones MD Primary Care Provide r Kristi Giles PharmD Unavailable [phone] Reason for Visit * Reason Comments Med Refill Encounter Details Date Type Department Care Team ([facility] Contact Info) Description 04/17/2022 Refill [facility] MEDICINE 230 [place] [address] Brook Guerrero MD [address] [place] [address] Other chronic pain Social History Tobacco Use [...] 05/27/2024 1:00 PM EDT Office Visit [facility] OPTOMETRY [address] [place] [address] Abdiel, Kaci, OD 230 [place] [address] 06/26/2024 1:15 PM EDT Office Visit [facility] MEDICINE [address] [place] [address] Balaji Quinones MD [address] [place] [address] documented as of this encounter Goals Goal [...] pain documented in this encounter Care Teams Wad Compressor Operator Adjuster Relationship Specialty Start Date End Date Balaji Quinones MD [address] [place] [address] PCP - General Internal Medicine 11/25/13 Kristi Giles PharmD [address] [place] [address] Pharmacist Internal Medicine 01/30/22 documented as of this encounter
--- OUTSIDE RECORDS SUMMARY | 2024-04-16 08:34 | XMS_ITS | Encounter Summary ---
Author Organization [employer] Address 75 [facility] 7t [place] [address] Care Team Providers Care Quiller Runner Name Role Phone Balaji Quinones MD Primary Care Provide r Kristi Giles PharmD Unavailable [phone] Reason for Visit * Reason Comments Med Refill Encounter Details Date Type Department Care Team ([facility] st Contact Info) Description 04/16/2024 Refill [facility] MEDICINE [address] [place] [address] Balaji Quinones MD [address] [place] [address] Dermatitis of lower extremity Social History Tobacco [...] Description 05/27/2024 1:00 PM EDT Office Visit [facility] OPTOMETRY [address] [place] [address] Abdiel, Kaci, OD [address] [place] [address] 06/26/2024 1:15 PM EDT Office Visit [facility] MEDICINE [address] [place] [address] Balaji Quinones MD [address] [place] [address] documented as of this encounter Goals Goal [...] of lower extremity documented in this encounter Additional Health Concerns Assessment Noted Time PHQ-9 Depression Total Score: 1 04/19/19 24 1:30 PM EST documented as of this encounter Care Teams Quiller Runner Relationship Specialty Start Date End Date Balaji Quinones MD [address] [place] [address] PCP - General Internal Medicine 11/25/13 Kristi Giles, SarayD [address] [place] [address] Pharmacist Internal Medicine 01/30/22 documented as of this encounter
--- OUTSIDE RECORDS SUMMARY | 2024-04-16 08:34 | XMS_ITS | Encounter Summary ---
Author Organization [employer] Address 75 [facility] 7t [place] [address] Care Team Providers Care Shallot Packer Name Role Phone Balaji Quinones MD Primary Care Provide r Kristi Giles PharmD Unavailable [phone] Reason for Visit * Reason Comments Med Refill Encounter Details Date Type Department Care Team (Late Contact Info) Description 01/28/2023 Refill [facility] 230 [place] [address] Balaji Quinones MD [address] [place] [address] Social History Tobacco Use Types Packs/Day Years [...] Description 05/27/2024 1:00 PM EDT Office Visit [facility] OPTOMETRY [address] [place] [address] Kaci Meadows, OD 230 [place] [address] 06/26/2024 1:15 PM EDT Office Visit [facility] MEDICINE [address] [place] [address] Balaji Quinones MD [address] [place] [address] documented as of this encounter Goals Goal [...] on filedocumented in this encounter Care Teams Shallot Packer Relationship Specialty Start Date End Date Balaji Quinones MD [address] [place] [address] PCP - General Internal Medicine 11/25/13 Kristi Giles PharmD [address] [place] [address] Pharmacist Internal Medicine 01/30/22 documented as of this encounter
--- OUTSIDE RECORDS SUMMARY | 2024-04-16 08:34 | XMS_ITS | Encounter Summary ---
Author Organization [employer] Address [address] [facility] [address] [place] [address] Care Team Providers Care Ticket Maker Name Role Phone Balaji Quinones MD Primary Care Provide r Kristi Giles PharmD Unavailable [phone] Reason for Visit * Reason Comments Med Refill Encounter Details Date Type Department Care Team ([facility] st Contact Info) Description 12/24/2023 Refill [facility] WALK-IN CENTER 230 [place] [address] Balaji Quinoens MD [address] [place] [address] Folliculitis Social History Tobacco Use Types Packs/Day [...] 1:00 PM EDT Office Visit [facility] OPTOMETRY [address] [place] [address] Abdiel, Kaci, OD 230 [place] [address] 06/26/2024 1:15 PM EDT Office Visit [facility] MEDICINE 230 [place] [address] Balaji Quinones MD [address] [place] [address] documented as of this encounter Goals Goal [...] documented as of this encounter Care Teams Ticket Maker Relationship Specialty Start Date End Date Balaji Quinones MD [address] [place] [address] PCP - General Internal Medicine 11/25/13 Kristi Giles, SarayD [address] [place] [address] Pharmacist Internal Medicine 01/30/22 documented as of this encounter
--- OUTSIDE RECORDS SUMMARY | 2024-04-16 08:35 | XMS_ITS | Encounter Summary ---
Author Organization [employer] Address 75 [facility] 7t [place] [address] Care Team Providers Care Group Supervisor Yard Name Role Phone Balaji Quinones MD Primary Care Provide r Kristi Giles PharmD Unavailable [phone] Reason for Visit * Reason Comments Med Refill Encounter Details Date Type Department Care Team (Late Contact Info) Description 01/30/2023 Refill [facility] [address] [place] [address] Balaji Quinones MD [address] [place] [address] Social History Tobacco Use Types Packs/Day Years [...] Description 05/27/2024 1:00 PM EDT Office Visit [facility] OPTOMETRY [address] [place] [address] Kaci Meadows, OD 230 [place] [address] 06/26/2024 1:15 PM EDT Office Visit [facility] MEDICINE [address] [place] [address] Balaji Quinones MD [address] [place] [address] documented as of this encounter Goals Goal [...] on filedocumented in this encounter Care Teams Group Supervisor Yard Relationship Specialty Start Date End Date Balaji Quinones MD [address] [place] [address] PCP - General Internal Medicine 11/25/13 Kristi Giles PharmD [address] [place] [address] Pharmacist Internal Medicine 01/30/22 documented as of this encounter
--- OUTSIDE RECORDS SUMMARY | 2024-04-16 08:35 | XMS_ITS | Clinical Summary ---
Author Organization [employer] Address [address] 7[address] [place] [address] Care Team Providers Care Residential Subcontractor Name Role Phone Balaji Quinones MD Primary Care Provide r Kristi Giles PharmD Unavailable [phone] Allergies No known active allergies Medications sertraline [...] 2 diabetes mellitus without complication, unspecified whether termination clerk insulin use ([facility]) TAKE 1 TABLET BY MOUTH ONCE DAILY WITH BREAKFAST DO NOT BREAK, CRUSH, DISSOLVE OR CHEW 90 tablet 1 11/14/19 24 Active glucose blood (FREESTYLE LITE) test stripIndications: Type 2 diabetes mellitus with hyperlipidemia ([facility]) ([facility]) TEST BLOOD SUGAR ONCE DAILY 100 each 12/28/19 24 Active TRUEplus Lancets 33G miscIndications:T ype 2 diabetes mellitus with hyperlipidemia ([facility]/HCC) ([facility]) TEST BLOOD SUGAR ONCE DAILY ICD10= 100 each 12/28/19 24 Active metFORMIN (Glucophage) 1000 MG tabletIndications :Type 2 diabetes mellitus without complication, unspecified whether termination clerk insulin use ([facility]) TAKE 1 TABLET BY MOUTH TWICE DAILY [...] 2 diabetes mellitus without complication, unspecified whether termination clerk insulin use ([facility]) Take 1 tablet (45 mg) by mouth [...] 4:19 PM EST): Pt seen at our [facility] 12/28/[address] Lloyd Puckett After pt was walking on sidewalk, felt sudden dizzy, unable to describe dizziness, and the next thing he remembers is being on the ground with facial injuries, abrasions on knees and left wrist. His kwivsbwm-rx-nmt brought him to [facility]. Denied headache, chest pain, SOB, n/v/d, or recent illness. States has many year h/o similar recurrent episodes of dizziness that he cannot describe, occasionally falls. ECG today shows sinus arrythmia, IVCD, PACs. Pt tells me he already has a follow up scheduled with Dr. Peres his guide dog mobility instructor Plan: Obtain ECHO, ECG, EEG. CT of [...] has appointment for an ultrasound coming up [facility] care 05/11/2022 Assessment & Plan (11/22/2023 11:36 [...] of 3.9 cm. Pt was referred to [facility] surgeons. He was seen 11/06/2016 [...] of 3.9 cm. Pt was referred to [facility] surgeons. He was seen 11/06/2016 [...] of 3.9 cm. Pt was referred to [facility] surgeons. He was seen 11/06/2016 [...] of 3.9 cm. Pt was referred to [facility] surgeons. He was seen 11/06/2016 [...] on: 01/12/2021 was: 1.3 Pt on an DNAETTE inhibitor , will repeat Foot check risk [...] Encounters Date Type Department Care Team Description 04/16/2024 Refill [facility] [address] [place] [address] Balaji Quinones MD Dermatitis of lower extremity 04/15/2024 Telephone [facility] [address] [place] [address] Balaji Quinones MD Results 04/14/2024 Orders Only [facility] [address] [place] [address] Balaji Quinones MD Mass in neck (Primary Dx) 04/03/2024 Telephone [facility] [address], [place] [address] Balaji Quinones MD Results 03/25/2024 Refill [facility] [address], [place] [address] Balaji Quinones MD Primary hypertension 03/14/2024 Refill [facility] [address], [place] [address] Balaji Quinones MD Dry eyes 03/06/2024 Refill [facility] [address], [place] [address] Pam Lemons MD Tinea pedis of both feet 02/27/2024 Telephone [facility] [address], [place] [address] Balaji Quinones MD FYI 02/20/2024 Refill [facility] [address], [place] [address] Balaji Quinones MD Dermatitis of lower extremity 02/14/2024 11:30 AM EST Office Visit [facility] [address], [place] [address] Balaji Quinones MD Primary hypertension (Primary Dx); Type 2 diabetes mellitus without complication, without long-term current use of insulin (CMS/HCC); Aneurysm of ascending aorta without rupture (CMS/HCC); Syncope, unspecified syncope type; Type 2 diabetes mellitus without complication, unspecified whether termination clerk insulin use (CMS/HCC); Iron deficiency anemia, unspecified iron deficiency anemia type; Hypertension, unspecified type; Mixed hyperlipidemia 02/14/2024 Telephone [facility] [address], [place] [address] Balaji Quinones MD 02/14/2024 Telephone [facility] [address], [place] [address] Balaji Quinones MD Appointment Confirmation 02/14/2024 Travel 02/14/2024 Refill [facility] [address], [place] [address] Balaji Quinones MD Mixed hyperlipidemia; Type 2 diabetes mellitus without complication, unspecified whether assisted insulin use ([facility]); Iron deficiency anemia, unspecified iron deficiency anemia type; Hypertension, unspecified type 01/31/2024 Telephone [facility] [address] [place] [address] Balaji Quinones MD Chart Prep 01/28/2024 Telephone [facility] [address] [place], [place] [phone] Balaji Quinones MD Med Refill 01/25/2024 Refill [facility] [address] [place], [place] [phone] Balaji Quinones MD Folliculitis from Last 3 Months Immunizations Name Administration [...] Description 05/27/2024 1:00 PM EDT Office Visit [facility] [address] [place], [place] [phone] Kaci Meadows, OD [address] [place] [address] 06/26/2024 1:15 PM EDT Office Visit [facility] [address] [place] [address] Balaji Quinones MD [address] [place], [place] [phone] Health Maintenance Due Date Last Done Comments CT Colonography 1955 FIT DNA/Cologuard 1955 FIT 1955 FOBT 1955 Sigmoidoscopy 1955 Diabetes: Foot Exam 1964 Depression Screening 04/18/2024 04/19/2023, 04/19/19 24 SDOH Screening 04/18/2024 04/19/2023 Diabetes: Urine Protein [...] 6.6( 11:31 AM EST) No Kristi Giles PharmIvan Procedures Procedure Name Priority Date/Time Associated Diagnosis [...] EST Narrative 04/03/2024 12:34 PM EST ? [facility] ?[address] ?[place] [address] ? CT Scan Report ? Signed with Addenda ? Patient: Alonso,Paul ?MR#: [id number] ?? 33 ? : 1955 ?Acct:[id number] ? Age/Sex: 68 / M ?ADM Date: 02/20/25 ? Loc: HO.CT ? Attending Dr: Balaji Sanderson MD ? Ordering Physician: Balaji Sanderson MD ?? Date of Service: 04/03/24 ?? Procedure(s): CT angio chest aorta ?? Accession Number(s): [id number] ? cc: Balaji Sanderson MD ? Report Number: ?? [id number]: Total DLP = ??212.27 mGy-cm ?ADDENDUM ?? This document has been electronically signed by: Neelam Acevedo MD on ?? 04/03/2024 12:33:34 ? ADDENDUM: ?? Receipt of this report by the clinical staff was confirmed with Ibeth Vargas, ?? R.NGianna on Apr 04, 2024 12:00:00 EST. ? [...] DD/ 1233 ? TD/TT: 04/03/24 1233 ? Gas Truck Driver: ? Procedure Note Xenia Gilliam - 04/04/[address] [place] [address] [address] Scan Report Signed with Addenda Patient: Jayda Alonso#: [id number] 33 : 5Acct:[id number] Age/Sex: 68 / MADM Date: 04/03/24 Loc: HO.CT Attending Dr: Balaji Sanderson MD Ordering Physician: Balaji Sanderson MD Date of Service: 04/03/24 Procedure(s): CT angio chest aorta Accession Number(s): [id number] cc: Balaji Sanderson MD Report Number: [id number]: Total DLP = 212.27 mGy-cm ADDENDUM This [...] signed by Neelam Acevedo MDin OV> 04/04/24 1202 Addendum Cosigned By: DD/ TD/TT: 04/04/24 CLINICAL [...] 04/03/24 1234 DD/ 1233 TD/TT: 04/03/24 1233 Gas Truck Driver: us Balaji Donnelly MD IMG CT PROCEDURES Jaspal tennille Result - Final * CT Head w/o Contrast (04/03/2024 10:11 AM EST) Anatomical Region Laterality Modality Head, Neck Computed Tomogra phy 04/03/2024 10:1 1 AM EST Narrative 04/03/2024 10:12 AM EST ? [place] [facility] ?[address] ?[place] [address] ? CT Scan Report ? Signed ? Patient: Alonso,Paul ?MR#: [id number] ?? 33 ? : 1955 ?Acct:[id number] ? Age/Sex: 68 / M ?ADM Date: 04/03/24 ? Loc: HO.CT ? Attending Dr: Balaji Sanderson MD ? Ordering Physician: Balaji Sanderson MD ?? Date of Service: 04/03/24 ?? Procedure(s): CT head/brain wo IV con ?? Accession Number(s): [id number] ? cc: Balaji Sanderson MD ? Report Number: ?? [id number]: Total DLP = ??672.66 mGy-cm ? CLINICAL HISTORY: syncope ? CT head without contrast ? Comparison: None ? Findings: ?? No intra-axial mass, midline shift, hydrocephalus, or acute hemorrhage. ?? Xobu-gd-vvordmdq age-related cerebral hemispheric white matter changes. ?? [...] DD/ 1011 ? TD/TT: 04/03/24 1011 ? Gas Truck Driver: ? Procedure Note Tawana, Image - 04/03/[address] [address] [address] Scan Report Signed Patient: Jayda Alonso#: [id number] 33 : 5Acct:[id number] Age/Sex: 68 / MADM Date: 04/03/24 Loc: HO.CT Attending Dr: Balaji Sanderson MD Ordering Physician: Balaji Sanderson MD Date of Service: 04/03/24 Procedure(s): CT head/brain wo IV con Accession Number(s): [id number] cc: Balaji Sanderson MD Report Number: [id number]: Total DLP = 672.66 mGy-cm CLINICAL HISTORY: syncope CT head without contrast Comparison: None Findings: No intra-axial mass, midline shift, hydrocephalus, or acute hemorrhage. Waqx-ft-zepnjyfb age-related cerebral hemispheric white matter changes. Small [...] 04/03/24 1012 DD/ 1011 TD/TT: 04/03/24 1011 Gas Truck Driver: Balaji Donnelly MD IMG CT PROCEDURES Fin al Result * ECG 12 lead (02/14/2024 4:18 PM EST) Narrative Balaji Quinones MD - 02/14/2024 4:18 PM EST Sinus arrhythmia, PACs, IVC delay Balaji Donnelly MD ECG ORDERABLES Final Result * (ABNORMAL) POCT HGB A1C (02/14/2024 11:31 AM EST) Hemoglobin A1C 6.6(A) 4.0 - 6.0 % QC Media Lot # [id number] Lot# Expiration Date Blood 02/14/2024 11:3 1 AM EST Balaji Donnelly MD POINT OF CARE TEST EN TER/EDIT ORDERABLES Final Result * POCT Glucose (02/14/2024 11:28 AM EST) Glucose Blood, POC 186 60 - 200 mg/dL QC Media Lot # [id number] Lot# Expiration Date [id number] Blood Capillary blood specimen / Unknown 02/14/2024 11:28 AM EST Balaji Donnelly MD POINT OF CARE TEST EN TER/EDIT ORDERABLES Final Result * (ABNORMAL) Lipid Panel with Reflex to Direct LDL (06/19/2023 1:23 PM EDT) Triglycerides 158(H) <150 mg/dL [facility] Comment:Desirable Triglyceri de: less than 150 mg/dLBorderline High Triglyceride 150-199 mg/dLHigh Triglyceride: 200-499 mg/dLVery High Triglyceride: greater than or equal to 5OO mg/dL Cholesterol 127 <200 mg/dL [facility] Comment:Desirable Cholestero l: less than 200 mg/dLBorderline High Cholesterol: 200-239 mg/dLHigh Cholesterol: greater than 239 mg/dL LDL Cholesterol Calculated 66 <100 mg/dL [facility] Comment:Desirable LDL: less than 100 mg/dLNear Optimal/Above Optimal LDL: 110- 129 mg/dLBorderline High LDL: 130-159 mg/dLHigh LDL: 160-189 mg/dLVery High LDL: greater than or equal to 190 mg/dL HDL Cholesterol 30(L) >40 mg/dL [facility] Comment:Desirable HDL: great er than 40 mg/dL Note: This HDL assay may give artificially low results in patients with liver disease. Blood 06/19/2023 1:23 PM EDT 06/19/2023 4:12 PM EDT us Balaji Donnelly MD LAB BLOOD ORDERABLES Final Result [facility] [address] [place] [phone] * Albumin, Random Urine W/Creatinine (06/19/2023 12:00 AM EDT) Creatinine, Urine 137.18 mg/dL [facility] Microalbumin Urine 21.0 mg/L [facility] Microalbum Creatinine Ratio Ur 15.3 <30 ug/mg cr [facility] Comment:Albumin/Creatinine R atio Reference Ranges: Normal: < 30 ug/mg creatinine Microalbuminuria: 30 - 300 ug/mg creatinineClinical Albuminuria: > 300 ug/mg creatinine Urine (Urine, Random) 06/19/2023 06/19/2023 Balaji Donnelly MD LAB URINE ORDERABLES Final Result Performing Organization Address City/[facility]/ZIP Co de Phone Number [facility] [address] [place] [address] [phone] * Hepatitis C Antibody with Reflex to HCV, RNA, Quantitative, Real-Time PCR (07/05/2022 8:13 AM EDT) Hepatitis C Antibody NON-REACT MADDY NON-REACT MADDY [employer] [place] [facility]) Index 0.04 <1.00 [employer] [place] [facility]) Comment: HCV antibody was non-reactive. There is no laboratory evidence of HCV infection. In most cases, no further action is required. However, if recent HCV exposure is suspected, a test for HCV RNA (test code 84827) is suggested. For additional information please refer to http://education.[employer]/faq/WUV39r3 (This link is being provided for informational/ educational purposes only.) Blood Venous blood specimen / Unknown 07/05/2022 8:13 AM EDT 07/05/2022 8:14 AM EDT Narrative [facility] - 07/06/2022 11:54 AM EDT FASTING:YES FASTING: YES Balaji Donnelly MD LAB BLOOD ORDERABLES Final Result Performing Organization Address City/[facility]/ZIP Co de Phone Number [address], [place] [address] [employer] [facility] [address] [place] [address] * Colonoscopy (07/10/2017) Colonoscopy Normal Normal 07/10/2017 Shikha Morel - 07/10/2017 3:47 PM EDT Recommended 10 year follow up ( [facility] ) Historical Provider MD HEALTH MAINTENANCE Final Result from Last 3 Months or Most Recently Relevant to Health Maintenance Insurance [facility] STANDARD [place] [phone] Care Teams Residential Subcontractor Relationship Specialty Start Date End Date Balaji Quinones MD [address] [place] [address] PCP - General Internal Medicine 11/25/13 Kristi Giles, SarayD [address] [place] [address] Pharmacist Internal Medicine 01/30/22
--- OUTSIDE RECORDS SUMMARY | 2024-04-16 08:35 | XMS_ITS | Encounter Summary ---
Author Organization [employer] Address [address] [facility] 7t [place] [address] Care Team Providers Care Patent Lawyer Name Role Phone Balaji Quinones MD Primary Care Provide r Kristi Giles PharmD Unavailable [phone] Reason for Visit * Reason Onset Date Comments Durable Medical Equipment 01/30/2023 Encounter Details Date Type Department Care Team (Late st Contact Info) Description 01/30/2023 Telephone [facility] [address] [place] [address] Balaji Quinones MD [address] [place] [address] Durable Medical Equipment Social History Tobacco Use [...] and taking falls. Please contact pt @ [phone] Swedish Speaker documented in this encounter Plan of Treatment Upcoming Encounters Date Type Department Care Team (Late st Contact Info) Description 05/27/2024 1:00 PM EDT Office Visit [facility] [address] [place] [address] Kaci Meadows, OD [address] [place] [address] 06/26/2024 1:15 PM EDT Office Visit [facility] [address] [place] [address] Balaji Quinones MD [address] [place] [address] documented as of this encounter Goals Goal [...] on filedocumented in this encounter Care Teams Patent Lawyer Relationship Specialty Start Date End Date Balaji Quinones MD [address] [place] [address] PCP - General Internal Medicine 11/25/13 Kristi Giles PharmD [address] [place] [address] Pharmacist Internal Medicine 01/30/22 documented as of this encounter
--- OUTSIDE RECORDS SUMMARY | 2024-04-16 08:35 | XMS_ITS | Encounter Summary ---
Author Organization [employer] Address [address] [facility] 7t [place] [address] Care Team Providers Care Hoop Rolls Operator Name Role Phone Balaji Quinones MD Primary Care Provide r Kristi Giles PharmD Unavailable [phone] Reason for Visit * Reason Comments Med Refill Encounter Details Date Type Department Care Team (Late Contact Info) Description 12/30/2022 Refill [facility] [address] [place] [address] Balaji Quinones MD [address] [place] [address] Tinea pedis of both feet Social History [...] 05/27/2024 1:00 PM EDT Office Visit [facility] [address] [place] [address] Kaci Meadows, OD [address] [place] [address] 06/26/2024 1:15 PM EDT Office Visit [facility] [address] [place] [address] Balaji Quinones MD [address] [place] [address] documented as of this encounter Goals Goal [...] feet documented in this encounter Care Teams Hoop Rolls Operator Relationship Specialty Start Date End Date Balaji Quinones MD [address] [place] [address] PCP - General Internal Medicine 11/25/13 Kristi Giles PharmD [address] [place] [address] Pharmacist Internal Medicine 01/30/22 documented as of this encounter
[2024-04-16 09:08] VITALS: BP 114/50; PULSE 80; O2SAT 100; BMI 22.6
--- NOTE | 2024-04-16 09:08 | MHC.OFFVIS ---
Vital Signs 04/16/24 09:08 Height 5 ft 3 in Weight 127 lb 13.89 oz BMI 22.6 BP 114/50 L Blood Pressure Location Lt brachial Position Sitting Pulse 80 Pulse Source Pulse Oximeter Pulse Oximetry (%) 100 Oxygen Delivery Method Room Air Intake Visit Reasons: abnormal CT scan Allergies No Known Allergies Allergy (Verified 02/15/24 13:09) HPI Comments Details: The patient is here for a pulmonary evaluation. The patient is a 68-year-old gentleman who presents with an abnormal CT scan of the chest. Apparently he was in usual state health until he had a CT of the chest angiogram to assess his aorta. It came back abnormal with significant mediastinal lymphadenopathy and referred to Pulmonary. I did visualize his CT scan from 2022 and also from 05/01/2024. It actually demonstrates that he has a 3.5 cm masslike density in the area of the paratracheal lymph node. No other significant lymphadenopathy noted. No parenchymal disease. The patient is a lifelong nonsmoker. Denies any decreased appetite. He has had some weight loss however. He has gone up and down. Denies any night sweats. Denies any rashes. Did have blood work done his sedimentation rate was only 7 which is reassuring. However, based on the size of the normal paratracheal lymph node masslike density a biopsy is warranted. I did talk about a endobronchial ultrasound bronchoscopy with transbronchial needle aspirations will be the best approach. He is agreeable to this and will make arrangements to do soon as possible. [facility], [facility] Medical History (Updated 04/16/24 @ 17:55 by Ki Castaneda MD) Lymphadenopathy, mediastinal Thoracic aortic aneurysm (TAA) Depression Hyperlipemia HTN (hypertension) Diabetes Anemia Family History Sister Breast cancer Social History Household Members: None Housing: Apartment Are you a primary date night caregiver to a significant other at home: No Do you presently have visiting nurse or other home services: No Alcohol intake: former Patient Tobacco Use Status: Never used Tobacco service: No Current occupational status: disabled Review of Systems Const Denies fatigue, Denies fever(s) and Denies weight loss Eyes Reports no additional complaints ENT Reports no additional complaints Card Denies chest pain Resp Reports no additional complaints GI Denies abdominal pain Musc Reports no additional complaints Skin/Breast Denies rash Neuro Reports no additional complaints Endo Denies fatigue Kofi/Lymph Reports no additional complaints Aller/Immun Reports no additional complaints Physical Exam Vital Signs: Last Vital Signs Pulse 80 04/16/24 09:08 BP 114/50 L 04/16/24 09:08 Pulse Ox 100 04/16/24 09:08 Oxygen Delivery Method Room Air 04/16/24 09:08 BMI result Body Mass Index 22.6 Const General: comfortable HEENT Head: Yes normocephalic Neck Neck: Yes supple Chest Chest palpation & inspection: normal inspection of the chest Resp Effort & Inspection: normal respiratory effort Auscultation: diminished lung sounds Cardio Heart sounds: S1 normal heart sound present and S2 normal heart sound present GI Palpation (GI): Soft to palpation Skin General skin exam: no rashes or lesions noted Extrem General: Yes no clubbing, cyanosis or edema Results Reviewed Results Reviewed: Assessment & Plan Assessment & Plan (1) Lymphadenopathy, mediastinal: Code(s): R59.0 - Localized enlarged lymph nodes Category: Medical (2) Mediastinal mass: Code(s): J98.59 - Other diseases of mediastinum, not elsewhere classified Category: Medical Plan Plan for EBUS with TBNA of 4R lymph node to r/o Malignancy / blood dyscrasia Coding Level of Care Code New Pt Level 5 (40720) Diagnoses Lymphadenopathy, mediastinal R59.0 Mediastinal mass J98.59 Time Spent (min) 60
== END 2024-04-16 09:43 | disposition home or self-care (01) ==
PROVIDERS: PCP Internal Medicine; Visit Provider Hospitalist
DX: R59.0 Localized enlarged lymph nodes (principal); J98.59 Other diseases of mediastinum, not elsewhere classified; R93.3 Abnormal findings on diagnostic imaging of other parts of digestive tract
CPT/HCPCS: 99205

== ENCOUNTER → 2024-04-16 08:14 | Outpatient (BNVA) | payer MEDICARE, MEDICAID, SELFPAY | PROVIDERS: PCP Internal Medicine; Visit Provider Hospitalist | DX: R59.0 Localized enlarged lymph nodes (principal); J98.59 Other diseases of mediastinum, not elsewhere classified | CPT/HCPCS: 99202 ==

== ENCOUNTER 2024-04-23 10:24 | Outpatient (REF) | payer MEDICARE, MEDICAID, SELFPAY ==
--- NOTE | ~2024-04-23 | MR_ITS ---
EXAMINATION: MR BRAIN WITHOUT AND WITH CONTRAST CLINICAL INFORMATION: Syncope. Collapse. COMPARISON: No prior MRI brain. Correlated to CT dated April 03, 2024 demonstrated no acute intracranial findings. TECHNIQUE: Multiplanar, multisequence MRI of the brain was obtained before and after the intravenous administration of 5 mL (Gadavist) without reported immediate complications. FINDINGS: Patient's motion artifact. No restricted diffusion. No acute intracranial hemorrhage, mass effect, midline shift, hydrocephalus or herniation. Bilateral, multifocal, patchy hyperintense T2 FLAIR signal within the fawn and deep periventricular white matter and subcortical white matter of the centrum semiovale and shankar radiata both cerebral hemispheres. 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 Flow-void signal within the main vessels is normal. Sellar/suprasellar region is normal. Craniocervical junction is intact and normal. No abnormal enhancement within the intra-axial or the extra-axial compartment of the cranium. MR/MR head/brain wo/w con IMPRESSION: No acute brain abnormality. No gross abnormal enhancing lesion. 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 Electronically signed by: Austin Tejeda MD 04/23/2024 12:47 PM EDT
[2024-04-23] MEDS: gadobutroL 7.5 ML VIAL IVPUSH (11:37)
--- OUTSIDE RECORDS SUMMARY | 2024-04-23 11:55 | XMS_ITS | Encounter Summary ---
Author Organization [employer] Address [address] [place] [address] Care Team Providers Care Director Surface Transportation Name Role Phone Balaji Quinones MD Primary Care Provide r Kristi Giles PharmD Unavailable [phone] Reason for Visit * Reason Comments Med Refill Encounter Details Date Type Department Care Team (Late st Contact Info) Description 06/11/2023 Refill [facility] PEDS [address] [place] [address] Balaji Quinones MD [address] [place] [address] Swelling of right middle finger Social History [...] Description 05/27/2024 1:00 PM EDT Office Visit [facility] OPTOMETRY [address] [place] [address] Abdiel, Kaci, OD [address] [place] [address] 06/26/2024 1:15 PM EDT Office Visit [facility] MEDICINE [address] [place] [address] Balaji Quinones MD [address] [place] [address] documented as of this encounter Goals Goal [...] as of this encounter Care Teams Director Surface Transportation Relationship Specialty Start Date End Date Balaji Quinones MD [address] [place] [phone] PCP - General Internal Medicine 11/25/13 Kristi Giles, SarayD [address] [place] [address] Pharmacist Internal Medicine 01/30/22 documented as of this encounter
--- OUTSIDE RECORDS SUMMARY | 2024-04-23 11:55 | XMS_ITS | Encounter Summary ---
Author Organization [employer] Address [address] [facility] [place] [address] Care Team Providers Care Operative Supervisor Name Role Phone Balaji Quinones MD Primary Care Provide r Kristi Giles PharmD Unavailable [phone] Reason for Visit * Reason Comments Med Refill Encounter Details Date Type Department Care Team ([facility] st Contact Info) Description 08/01/2023 Refill [facility] [address] [place] [address] Vani Stallworth MD [address] [place] [address] Folliculitis Social History Tobacco Use Types Packs/Day [...] 05/27/2024 1:00 PM EDT Office Visit [facility] OPTOMETRY [address] [place] [address] Abdiel, Kaci, OD [address] [place] [address] 06/26/2024 1:15 PM EDT Office Visit [facility] MEDICINE [address] [place] [address] Balaji Quinones MD [address] [place] [address] documented as of this encounter Goals Goal [...] documented as of this encounter Care Teams Operative Supervisor Relationship Specialty Start Date End Date Balaji Quinones MD [address] [place] [address] PCP - General Internal Medicine 11/25/13 Kristi Giles, SarayD [address] [place] [phone] Pharmacist Internal Medicine 01/30/22 documented as of this encounter
--- OUTSIDE RECORDS SUMMARY | 2024-04-23 11:55 | XMS_ITS | Encounter Summary ---
Author Organization [employer] Address [address] [facility] 7t [place] [address] Care Team Providers Care Professional System Administrator Name Role Phone Balaji Quinones MD Primary Care Provide r Kristi Giles PharmD Unavailable [phone] Encounter Details Date Type Department Care Team ([facility] Contact Info) Description 01/28/2022 Abstract [facility] MEDICINE [address] [place] [address] Kristi Giles, PharmD [address] [place] [address] Social History Tobacco Use Types Packs/Day Years [...] Visit [facility] OPTOMETRY [address] [place] [address] Kaci Meadows, OD [address] [place] [address] 06/26/2024 1:15 PM EDT Office Visit [facility] MEDICINE [address] [place] [address] Balaji Quinones MD [address] [place] [address] documented as of this encounter Goals Goal [...] on filedocumented in this encounter Care Teams Professional System Administrator Relationship Specialty Start Date End Date Balaji Quinones MD [address] [place] [address] PCP - General Internal Medicine 11/25/13 Kristi Giles PharmD [address] [place] [address] Pharmacist Internal Medicine 01/30/22 documented as of this encounter
--- OUTSIDE RECORDS SUMMARY | 2024-04-23 11:55 | XMS_ITS | Encounter Summary ---
Author Organization [employer] Address [address] [place] [address] Care Team Providers Care Counter Intelligence Technician Name Role Phone Balaji Quinones MD Primary Care Provide r Kristi Giles PharmD Unavailable [phone] Reason for Visit * Reason Comments Med Refill Encounter Details Date Type Department Care Team ([facility] st Contact Info) Description 06/25/2023 Refill [facility] [address] [place] [address] Balaji Quinones MD [address] [place] [address] Folliculitis Social History Tobacco Use Types Packs/Day [...] Description 05/27/2024 1:00 PM EDT Office Visit [facility] OPTOMETRY [address] [place] [address] Abdiel, Kaci, OD [address] [place] [address] 06/26/2024 1:15 PM EDT Office Visit [facility] MEDICINE [address] [place] [address] Balaji Quinones MD [address] [place] [address] documented as of this encounter Goals Goal [...] documented as of this encounter Care Teams Counter Intelligence Technician Relationship Specialty Start Date End Date Balaji Quinones MD [address] [place] [address] PCP - General Internal Medicine 11/25/13 Kristi Giles, Quentin [address] [place] [address] Pharmacist Internal Medicine 01/30/22 documented as of this encounter
--- OUTSIDE RECORDS SUMMARY | 2024-04-23 11:56 | XMS_ITS | Encounter Summary ---
Author Organization [employer] Address [address] [facility] [address]t [place] [address] Care Team Providers Care Local Sales Manager Name Role Phone Balaji Quinones MD Primary Care Provide r Kristi Giles PharmD Unavailable [phone] Reason for Visit * Reason Onset Date Comments Durable Medical Equipment 01/30/2023 Encounter Details Date Type Department Care Team (Late st Contact Info) Description 01/30/2023 Telephone [facility] MEDICINE [address] [place] [address] Balaji Quinones MD [address] [place] [address] Durable Medical Equipment Social History Tobacco Use [...] Miscellaneous Notes * Telephone Encounter - Lisa Coffyeaquiles Fenton - 01/30/2023 10:07 AM EST Tc from pt requesting knee pads due to his diabetes diagnostics and taking falls. Please contact pt @ [phone] [place] Speaker documented in this encounter Plan of Treatment Upcoming Encounters Date Type Department Care Team (Late st Contact Info) Description 05/27/2024 1:00 PM EDT Office Visit [facility] OPTOMETRY [address] [place] [address] Kaci Meadows, OD [address] [place] [address] 06/26/2024 1:15 PM EDT Office Visit [facility] MEDICINE [address] [place] [address] Balaji Quinones MD [address] [place] [address] documented as of this encounter Goals Goal [...] on filedocumented in this encounter Care Teams Local Sales Manager Relationship Specialty Start Date End Date Balaji Quinones MD [address] [place] [address] PCP - General Internal Medicine 11/25/13 Kristi Giles PharmD [address] [place] [address] Pharmacist Internal Medicine 01/30/22 documented as of this encounter
--- OUTSIDE RECORDS SUMMARY | 2024-04-23 11:56 | XMS_ITS | Encounter Summary ---
Author Organization [employer] Address [address] [facility] [address] [place] [address] Care Team Providers Care Access Nurse Name Role Phone Balaji Quinones MD Primary Care Provide r Kristi Giles PharmD Unavailable [phone] Reason for Visit * Reason Onset Date Comments Results 04/15/2024 Encounter Details Date Type Department Care Team ([facility] st Contact Info) Description 04/15/2024 Telephone [facility] MEDICINE [address] [place] [address] Balaji Quinones MD [address] [place] [address] Results Social History Tobacco Use Types Packs/Day [...] to pt with [facility] historical interpreter #[id number] to inform of the pt CTA chest [...] call regarding prior message. Contact pt at [phone] * Telephone Encounter - Lilly Rice RN - 04/15/2024 8:54 AM EST Telephone call x1 to pt to advise of results and referral, no answer, left voicemail to call back [facility]. Will task to call again. --Dr [...] Description 05/27/2024 1:00 PM EDT Office Visit [facility] OPTOMETRY [address] [place] [address] Kaci Meadows, OD [address] [place] [address] 06/26/2024 1:15 PM EDT Office Visit [facility] MEDICINE [address] [place] [address] Balaji Quinones MD [address] [place] [address] documented as of this encounter Goals Goal [...] documented as of this encounter Care Teams Access Nurse Relationship Specialty Start Date End Date Balaji Quinones MD [address] [place] [address] PCP - General Internal Medicine 11/25/13 Kristi Giles, SarayD [address] [place] [phone] Pharmacist Internal Medicine 01/30/22 documented as of this encounter
--- OUTSIDE RECORDS SUMMARY | 2024-04-23 11:56 | XMS_ITS | Encounter Summary ---
Author Organization [employer] Address [address] [place] [address] Care Team Providers Care Structural Steel Shop Supervisor Name Role Phone Balaji Quinones MD Primary Care Provide r Kristi Giles PharmD Unavailable [phone] Reason for Visit * Reason Comments Med Refill Encounter Details Date Type Department Care Team (Late Contact Info) Description 05/11/2022 Refill [facility] [address] [place] [address] Balaji Quinones MD [address] [place] [address] Swelling of right middle finger Social History [...] [facility] OPTOMETRY [address] [place] [address] AbdielKaci yi, OD [address] [place] [address] 06/26/2024 1:15 PM EDT Office Visit [facility] MEDICINE [address] [place], [place] [phone] Balaji Quinones MD [address] [place] [address] documented as of this encounter Goals Goal [...] finger documented in this encounter Care Teams Structural Steel Shop Supervisor Relationship Specialty Start Date End Date Balaji Quinones MD [address] [place] [address] [id number] PCP - General Internal Medicine 11/25/13 Kristi Giles PharmD [address] [place] [address] Pharmacist Internal Medicine 01/30/22 documented as of this encounter
--- OUTSIDE RECORDS SUMMARY | 2024-04-23 11:56 | XMS_ITS | Clinical Summary ---
Author Organization [employer] Address [address] [facility] [address] [place] [address] Care Team Providers Care American Indian Policy Specialist Name Role Phone Balaji Quinones MD Primary Care Provide r Kristi Giles PharmD Unavailable Allergies No known active allergies Medications sertraline [...] MORNING 90 tablet 2 10/18/19 24 Active Diclofenac Sodium 1 % gelIndications:Sw elling of right middle finger APPLY 2 GRAMS TOPICALLY TO AFFECTED AREA(S) TWICE DAILY NEEDED FOR PAIN 100 g 1 11/12/19 24 Active glipiZIDE XL (Glucotrol XL) 5 MG 24 hr tabletIndications :Type 2 diabetes mellitus without complication, unspecified whether roasterman insulin use ([facility]) TAKE 1 TABLET BY MOUTH ONCE DAILY WITH BREAKFAST DO NOT BREAK, CRUSH, DISSOLVE OR CHEW 90 tablet 1 11/14/19 24 Active glucose blood (FREESTYLE LITE) test stripIndications: Type 2 diabetes mellitus with hyperlipidemia ([facility]) ([facility]) TEST BLOOD SUGAR ONCE DAILY 100 each 12/28/19 24 Active TRUEplus Lancets 33G miscIndications:T ype 2 diabetes mellitus with hyperlipidemia ([facility]) ([facility]) TEST BLOOD SUGAR ONCE DAILY ICD10= 100 each 12/28/19 24 Active metFORMIN (Glucophage) 1000 MG tabletIndications :Type 2 diabetes mellitus without complication, unspecified whether [place] [facility] insulin use ([facility]) TAKE 1 TABLET BY MOUTH TWICE DAILY IN THE MORNING AND IN THE EVENING WITH MEALS 180 tablet 02/13/19 25 Active pantoprazole (ProtoNix) 40 MG EC tabletIndications :Iron deficiency anemia, unspecified iron deficiency anemia type Take 1 tablet (40 mg) by mouth Once per day. Do not crush, chew, or split. 90 tablet 02/13/19 25 Active lisinopril 40 MG tabletIndications :Hypertension, unspecified type Take 1 tablet (40 mg) by mouth Once per day. 90 tablet 02/13/19 25 Active pravastatin (Pravachol) 80 MG tabletIndications :Mixed hyperlipidemia Take 1 tablet (80 mg) by mouth Once per day. 90 tablet 02/13/19 25 Active pioglitazone (Actos) 45 MG tabletIndications :Type 2 diabetes mellitus without complication, unspecified whether roasterman insulin use ([facility]) Take 1 tablet (45 mg) by mouth Once per day. 90 tablet 02/13/19 25 Active ketoconazole (NIZOral) 2 % creamIndications: [...] MORNING 90 tablet 1 03/25/19 25 Active triamcinolone (Kenalog) 0.025 % creamIndications: Dermatitis of lower extremity APPLY TO THE AFFECTED AREA(S) 1 GRAM TOPICALLY TWICE DAILY 60 g 1 04/18/19 25 Active Petrolatum 42 % ointment APPLY TO THE AFFECTED AREA(S) TOPICALLY TWICE DAILY 454 g 5 04/18/19 25 Active hydroCHLOROthiazi de 12.5 MG tablet TAKE 1 TABLET BY MOUTH EVERY DAY 90 tablet 1 04/22/19 25 Active amLODIPine (Norvasc) 10 MG tabletIndications :Primary hypertension TAKE 1 TABLET BY MOUTH EVERY DAY IN THE MORNING 90 tablet 1 10/08/19 24 025 Discontinued hydroCHLOROthiazi de 12.5 MG tablet Take 1 tablet (12.5 mg) by mouth Once per day. 90 tablet 1 10/30/19 24 025 Discontinued Petrolatum 42 % ointment APPLY TOPICALLY TO THE AFFECTED AREA(S) TWICE DAILY DIRECTED 454 g 5 11/09/19 24 025 Discontinued triamcinolone (Kenalog) 0.025 % creamIndications: Dermatitis of lower extremity APPLY 1 GRAM TOPICALLY TO AFFECTED AREA(S) TWICE DAILY 60 g 1 02/19/19 25 025 Discontinued Active Problems Problem Noted Date Diagnosed Date Syncope 02/14/2024 Assessment & Plan (02/14/2024 4:19 PM EST): Pt seen at our [facility] 12/28/[address] Lloyd Puckett After pt was walking on sidewalk, felt sudden dizzy, unable to describe dizziness, and the next thing he remembers is being on the ground with facial injuries, abrasions on knees and left wrist. His knlgpsxf-uc-cml brought him to [facility]. Denied headache, chest pain, SOB, n/v/d, or recent illness. States has many year h/o similar recurrent episodes of dizziness that he cannot describe, occasionally falls. ECG today shows sinus arrythmia, IVCD, PACs. Pt tells me he already has a follow up scheduled with Dr. Peres his pumper gauger Plan: Obtain ECHO, ECG, EEG. CT of [...] has appointment for an ultrasound coming up [facility] care 05/11/2022 Assessment & Plan (11/22/2023 [...] of 3.9 cm. Pt was referred to [facility] Cardiovascular surgeons. He was seen 11/06/2016 [...] of 3.9 cm. Pt was referred to [facility] Cardiovascular surgeons. He was seen 11/06/2016 [...] of 3.9 cm. Pt was referred to [facility] Cardiovascular surgeons. He was seen 11/06/2016 [...] of 3.9 cm. Pt was referred to [facility] Cardiovascular surgeons. He was seen 11/06/2016 [...] Encounters Date Type Department Care Team Description 04/20/2024 Refill [facility] [address] [place] [address] Balaji Quinones MD 04/16/2024 Refill [facility] [address] [place] [address] Balaji Quinones MD Dermatitis of lower extremity 04/15/2024 Telephone [facility] [address] [place] [address] Balaji Quinones MD Results 04/14/2024 Orders Only [facility] [address] [place] [address] Balaji Quinones MD Mass in neck (Primary Dx) 04/03/2024 Telephone [facility] [address] [place] [address] Balaji Quinones MD Results 03/25/2024 Refill [facility] [address] [place] [address] Balaji Quinones MD Primary hypertension 03/14/2024 Refill [facility] [address] [place] [address] Balaji Quinones MD Dry eyes 03/06/2024 Refill [facility] [address] [place] [address] Pam Lemons MD Tinea pedis of both feet 02/27/2024 Telephone [facility] [address] [place] [address] Balaji Quinones MD FYI 02/20/2024 Refill [facility] [address] [place] [address] Balaji Quinones MD Dermatitis of lower extremity 02/14/2024 11:30 AM EST Office Visit [facility] [address] [place] [address] Balaji Quinones MD Primary hypertension (Primary Dx); Type 2 diabetes mellitus without complication, without long-term current use of insulin (CMS/HCC); Aneurysm of ascending aorta without rupture (CMS/HCC); Syncope, unspecified syncope type; Type 2 diabetes mellitus without complication, unspecified whether [place] [facility] insulin use (CMS/HCC); Iron deficiency anemia, unspecified iron deficiency anemia type; Hypertension, unspecified type; Mixed hyperlipidemia 02/14/2024 Telephone [facility] [address] [place] [address] Balaji Quinones MD 02/14/2024 Telephone [facility] [address] [place] [address] Balaji Quinones MD Appointment Confirmation 02/14/2024 Travel 02/14/2024 Refill [facility] [address] [place] [address] Balaji Quinones MD Mixed hyperlipidemia; Type 2 diabetes mellitus without complication, unspecified whether roasterman insulin use ([facility]); Iron deficiency anemia, unspecified iron deficiency anemia type; Hypertension, unspecified type 01/31/2024 Telephone [facility] [address] [place] [address] Balaji Quinones MD Chart Prep 01/28/2024 Telephone [facility] [address] [place] [address] Balaji Quinones MD Med Refill 01/25/2024 Refill [facility] [address] [place] [address] Balaji Quinones MD Folliculitis from Last 3 [...] Description 05/27/2024 1:00 PM EDT Office Visit [facility] OPTOMETRY [address] [place] [address] Kaci Meadows, OD [address] [place] [address] 06/26/2024 1:15 PM EDT Office Visit [facility] [address] [place] [address] Balaji Quinones MD [address] [place] [address] Health Maintenance Due Date Last Done Comments [...] Pressure 128/80(2024 11:18 AM EST) No Kristi Giles, Quentin Note: Maintain BP less than 140/90 Record your blood pressure once per day Blood Pressure No Kristi Giles, PharmIvan Note: Check BP daily Blood Pressure < 140/90 Blood Pressure Hypertension 128/80(2024 11:18 AM EST) No Kristi GilesQuentin Follow the DASH diet Diet No Kristi Giles PharmD Note: Look for foods that are low sodium. Hemoglobin A1c < 7 Result Component Type 2 diabetes mellitus 6.6( 11:31 AM EST) No Kristi Giles PharmD Procedures Procedure Name Priority Date/Time Associated Diagnosis Comments AMB REFERRAL TO NEUROLOGY Routine 04/10/2024 Syncope, unspecified syncope type CTA CHEST W AND WO CONTRAST Routine [...] Recently Relevant to Health Maintenance Results * Referral to Neurology (04/10/2024) us Balaji Donnelly MD OUTPATIENT REFERRAL O RDERABLES Final Result * CTA Chest w/ and w/o Contrast (04/03/2024 12:33 PM EST) Anatomical Region Laterality Modality Body, Chest Computed Tomogra phy 04/03/2024 12:3 3 PM EST Narrative 04/03/2024 12:34 PM EST ? [facility] ?[address] ?[place] [address] ? CT Scan Report ? Signed with Addenda ? Patient: Alonso,Paul ?MR#: [id number] ?? 32 ? : 1955 ?Acct:[id number] ? Age/Sex: 68 / M ?ADM Date: 04/03/24 ? Loc: HO.CT ? Attending Dr: Balaji Sanderson MD ? Ordering Physician: Balaji Sanderson MD ?? Date of Service: 04/03/24 ?? Procedure(s): CT angio chest aorta ?? Accession Number(s): [id number] ? cc: Balaji Sanderson MD ? Report Number: ?? [id number]: Total DLP = ??212.27 mGy-cm ?ADDENDUM ?? This document has been electronically signed by: Neelam Acevedo MD on ?? 04/03/2024 12:33:34 ? ADDENDUM: ?? Receipt of this report by the clinical staff was confirmed with Ibeth S., ?? R.N. on Apr 04, 2024 12:00:00 [...] DD/ 1233 ? TD/TT: 04/03/24 1233 ? Content Designer: ? Procedure Note Tawana, Image - 04/04/[address] [address] [address] Scan Report Signed with Loni Patient: Jayda Alonso#: [id number] 33 : 5Acct:[id number] Age/Sex: 68 / MADM Date: 04/03/24 Loc: HO.CT Attending Dr: Balaji Sanderson MD Ordering Physician: Balaji Sanderson MD Date of Service: 04/03/24 Procedure(s): CT angio chest aorta Accession Number(s): [id number] cc: Balaji Sanderson MD Report Number: [id number]: Total DLP = 212.27 mGy-cm ADDENDUM This [...] <Electronically signed by Neelam Acevedo MDin OV> 04/04/241201 Addendum Cosigned By: DD/ TD/TT: 04/04/24 CLINICAL [...] 04/03/24 1234 DD/ 1233 TD/TT: 04/03/24 1233 Content Designer: us Balaji Donnelly MD IMG CT PROCEDURES Jaspal tennille Result - Final * CT Head w/o Contrast (04/03/2024 10:11 AM EST) Anatomical Region Laterality Modality Head, Neck Computed Tomogra phy 04/03/2024 10:1 1 AM EST Narrative 04/03/2024 10:12 AM EST ? [facility] ?[address] ?[place] [address] ? CT Scan Report ? Signed ? Patient: Alonso,Paul ?MR#: [id number] ?? 33 ? : 1955 ?Acct:[id number] ? Age/Sex: 68 / M ?ADM Date: 04/03/24 ? Loc: HO.CT ? Attending Dr: Balaji Sanderson MD ? Ordering Physician: Balaji Sanderson MD ?? Date of Service: 04/03/24 ?? Procedure(s): CT head/brain wo IV con ?? Accession Number(s): [id number] ? cc: Balaji Sanderson MD ? Report Number: ?? [id number]: Total DLP = ??672.66 mGy-cm ? CLINICAL HISTORY: syncope ? CT head without contrast ? Comparison: None ? Findings: ?? No intra-axial mass, midline shift, hydrocephalus, or acute hemorrhage. ?? Fevl-ab-chuakwlh age-related cerebral hemispheric white matter changes. ?? [...] DD/ 1011 ? TD/TT: 04/03/24 1011 ? Content Designer: ? Procedure Note Donotisamarter, Image - 04/03/[address] [place] [address] [address] Scan Report Signed Patient: Jayda Alonso#: [id number] 33 : 5Acct:[id number] Age/Sex: 68 / MADM Date: 04/03/24 Loc: HO.CT Attending Dr: Balaji Sanderson MD Ordering Physician: Balaji Sanderson MD Date of Service: 04/03/24 Procedure(s): CT head/brain wo IV con Accession Number(s): [id number] cc: Balaji Sanderson MD Report Number: [id number]: Total DLP = 672.66 mGy-cm CLINICAL HISTORY: syncope CT head without contrast Comparison: None Findings: No intra-axial mass, midline shift, hydrocephalus, or acute hemorrhage. Itsw-my-esfgboiv age-related cerebral hemispheric white matter changes. Small [...] 04/03/24 1012 DD/ 1011 TD/TT: 04/03/24 1011 Content Designer: us Balaji Donnelly MD IMG CT PROCEDURES Fin al Result * ECG 12 lead (02/14/2024 4:18 PM EST) Narrative Balaji Quinones MD - 02/14/2024 4:18 PM EST Sinus arrhythmia, PACs, IVC delay us Balaji Donnelly MD ECG ORDERABLES Final Result [...] Media Lot # [id number] Lot# Expiration Date Blood Capillary blood specimen / Unknown 02/14/2024 11:28 AM EST Balaji Donnelly MD POINT OF CARE TEST EN TER/EDIT ORDERABLES Final Result * (ABNORMAL) Lipid Panel with Reflex to Direct LDL (06/19/2023 1:23 PM EDT) Triglycerides 158(H) <150 mg/dL [facility] Comment:Desirable Triglyceri de: less than 150 mg/dLBorderline High Triglyceride 150-199 mg/dLHigh Triglyceride: 200-499 mg/dLVery High Triglyceride: greater than or equal to 5OO mg/dL Cholesterol 127 <200 mg/dL [facility] Comment:Desirable Cholestero l: less than 200 mg/dLBorderline High Cholesterol: 200-239 mg/dLHigh Cholesterol: greater than 239 mg/dL LDL Cholesterol Calculated 66 <100 mg/dL [facility] Comment:Desirable LDL: less than 100 mg/dLNear Optimal/Above Optimal LDL: 110- 129 mg/dLBorderline High LDL: 130-159 mg/dLHigh LDL: 160-189 mg/dLVery High LDL: greater than or equal to 190 mg/dL HDL Cholesterol 30(L) >40 mg/dL [facility] Comment:Desirable HDL: great er than 40 mg/dL Note: This HDL assay may give artificially low results in patients with liver disease. Blood 06/19/2023 1:23 PM EDT 06/19/2023 4:12 PM EDT Balaji Donnelly MD LAB BLOOD ORDERABLES Final Result Performing Organization Address [facility] Co de Phone Number [facility] [address] [place] [phone] * Albumin, Random Urine W/Creatinine (06/19/2023 12:00 AM EDT) Creatinine, Urine 137.18 mg/dL [facility] Microalbumin Urine 21.0 mg/L [facility] Microalbum Creatinine Ratio Ur 15.3 <30 ug/mg cr [facility] Comment:Albumin/Creatinine R atio Reference Ranges: Normal: < 30 ug/mg creatinine Microalbuminuria: 30 - 300 ug/mg creatinineClinical Albuminuria: > 300 ug/mg creatinine Urine (Urine, Random) 06/19/2023 06/19/2023 Balaji Donnelly MD LAB URINE ORDERABLES Final Result Performing Organization Address [facility] de Phone Number [facility] [address] [place] [phone] * Hepatitis C Antibody with Reflex to HCV, RNA, Quantitative, Real-Time PCR (07/05/2022 8:13 AM EDT) Hepatitis C Antibody NON-REACT MADDY NON-REACT MADDY [facility] [employer] [facility] Index 0.04 <1.00 [facility] [employer] [facility] Comment: HCV antibody was non-reactive. There is no laboratory evidence of HCV infection. In most cases, no further action is required. However, if recent HCV exposure is suspected, a test for HCV RNA (test code 89691) is suggested. For additional information please refer to http://education.CinemaKi.Meme Apps/faq/JEK83u9 (This link is being provided for informational/ educational purposes only.) Blood Venous blood specimen / Unknown 07/05/2022 8:13 AM EDT 07/05/2022 8:14 AM EDT Narrative [facility] - 07/06/2022 11:54 AM EDT FASTING:YES FASTING: YES us Balaij Donnelly MD LAB BLOOD ORDERABLES Final Result [facility] [address], [place] [address] [employer] [facility] [address] [place] [phone] * Colonoscopy (07/10/2017) Pathologist [facility] Colonoscopy Normal Normal 07/10/2017 Shikha Morel - 07/10/2017 3:47 PM EDT Recommended 10 year follow up ( [facility] ) Historical Provider HEALTH MAINTENANCE Final Result from Last 3 Months or Most Recently Relevant to Health Maintenance Insurance [facility] STANDARD MEDICARE Care Teams American Indian Policy Specialist Relationship Specialty Start Date End Date Balaji Quinones MD [address] [place] [address] PCP - General Internal Medicine 11/25/13 Kristi Giles PharmD [address] [place] [address] Pharmacist Internal Medicine 01/30/22
--- OUTSIDE RECORDS SUMMARY | 2024-04-23 11:56 | XMS_ITS | Encounter Summary ---
Author Organization [employer] Address [address] [facility] 7t [place] [address] Care Team Providers Care Health Program Director Name Role Phone Balaji Quinones MD Primary Care Provide r Kristi Giles PharmD Unavailable [phone] Reason for Visit * Reason Comments Med Refill Encounter Details Date Type Department Care Team (Late Contact Info) Description 01/28/2023 Refill [facility] [address] [place] [address] Balaji Quinones MD [address] [place] [address] Social History Tobacco Use Types Packs/Day Years [...] Visit [facility] OPTOMETRY [address] [place] [address] Kaci Meadows, OD [address] [place] [address] 06/26/2024 1:15 PM EDT Office Visit [facility] MED[facility] [address] [place] [address] Balaji Quinones MD [address] [place] [address] documented as of this encounter Goals Goal [...] on filedocumented in this encounter Care Teams Health Program Director Relationship Specialty Start Date End Date Balaji Quinones MD [address] [place] [address] PCP - General Internal Medicine 11/25/13 Kristi Giles PharmD [address] [place] [phone] Pharmacist Internal Medicine 01/30/22 documented as of this encounter
--- OUTSIDE RECORDS SUMMARY | 2024-04-23 11:56 | XMS_ITS | Encounter Summary ---
Author Organization [employer] Address [address] [facility] 7t [place] [address] Care Team Providers Care Library Clerk Name Role Phone Balaji Quinones MD Primary Care Provide r Kristi Giles PharmD Unavailable [phone] Reason for Visit * Reason Comments Med Refill Encounter Details Date Type Department Care Team (Late Contact Info) Description 03/01/2023 Refill [facility] [address] [place] [address] Balaji Quinones MD [address] [place] [address] Type 2 diabetes mellitus without complication, unspecified whether shelter insulin use ([facility] Social History Tobacco Use Types Packs/Day Years [...] Office Visit [facility] [address] [place] [address] Abdiel, Kaci, OD [address] [place] [address] 06/26/2024 1:15 PM EDT Office Visit [facility] [address] [place] [address] Balaji Quinones MD [address] [place] [address] documented as of this encounter Goals Goal [...] 2 diabetes mellitus without complication, unspecified whether shelter insulin use ([facility]) documented in this encounter Care Teams Library Clerk Relationship Specialty Start Date End Date Balaji Quinones MD [address] [place] [address] PCP - General Internal Medicine 11/25/13 Kristi Giles PharmD [address] [place] [phone] Pharmacist Internal Medicine 01/30/22 documented as of this encounter
--- OUTSIDE RECORDS SUMMARY | 2024-04-23 11:56 | XMS_ITS | Encounter Summary ---
Author Organization [employer] Address [address] [facility] 7t [place] [address] Care Team Providers Care Bait Digger Name Role Phone Balaji Quinones MD Primary Care Provide r Kristi Giles PharmD Unavailable [phone] Reason for Visit * Reason Comments Med Refill Encounter Details Date Type Department Care Team (Late st Contact Info) Description 10/27/2022 Refill [facility] [address] [place] [address] Balaji Quinones MD [address] [place] [address] Dermatitis of lower extremity Social History Tobacco [...] Description 05/27/2024 1:00 PM EDT Office Visit [facility] OPTOMETRY [address] [place] [address] Kaci Meadows, OD [address] [place] [address] 06/26/2024 1:15 PM EDT Office Visit [facility] MED[facility] [address] [place] [address] Balaji Quinones MD [address] [place] [address] documented as of this encounter Goals Goal [...] extremity documented in this encounter Care Teams Bait Digger Relationship Specialty Start Date End Date Balaji Quinones MD [address] [place] [phone] PCP - General Internal Medicine 11/25/13 Kristi Giles PharmD [address] [place] [phone] Pharmacist Internal Medicine 01/30/22 documented as of this encounter
--- OUTSIDE RECORDS SUMMARY | 2024-04-23 11:56 | XMS_ITS | Encounter Summary ---
Author Organization [employer] Address [address] [facility] 7t [place] [address] Care Team Providers Care Opto Mechanical Engineer Name Role Phone Balaji Quinones MD Primary Care Provide r Kristi Giles PharmD Unavailable [phone] Reason for Visit * Reason Comments Med Refill Encounter Details Date Type Department Care Team (Late st Contact Info) Description 09/17/2022 Refill [facility] [address] [place] [address] Balaji Quinones MD [address] [place] [address] Dry eyes Social History Tobacco Use Types [...] Description 05/27/2024 1:00 PM EDT Office Visit [facility] OPTOMETRY [address] [place] [address] Kaci Meadows, OD [address] [place] [address] 06/26/2024 1:15 PM EDT Office Visit [facility] MED[facility] [address] [place] [address] Balaji Quinones MD [address] [place] [address] documented as of this encounter Goals Goal [...] insufficiency documented in this encounter Care Teams Opto Mechanical Engineer Relationship Specialty Start Date End Date Balaji Quinones MD [address] [place] [phone] PCP - General Internal Medicine 11/25/13 Kristi Giles PharmD [address] [place] [phone] Pharmacist Internal Medicine 01/30/22 documented as of this encounter
--- OUTSIDE RECORDS SUMMARY | 2024-04-23 11:56 | XMS_ITS | Encounter Summary ---
Author Organization [employer] Address [address] [facility] 7t [place] [address] Care Team Providers Care Wine Maker Name Role Phone Balaji Quinones MD Primary Care Provide r Kristi Giles PharmD Unavailable [phone] Reason for Visit * Reason Comments Med Refill Encounter Details Date Type Department Care Team (Late Contact Info) Description 12/30/2022 Refill [facility] [address] [place] [address] Balaji Quinones MD [address] [place] [address] Tinea pedis of both feet Social History [...] Description 05/27/2024 1:00 PM EDT Office Visit [facility] OPTOMETRY [address] [place] [address] Kaci Meadows, OD [address] [place] [address] 06/26/2024 1:15 PM EDT Office Visit [facility] MED[facility] [address] [place] [address] Balaji Quinones MD [address] [place] [address] documented as of this encounter Goals Goal [...] feet documented in this encounter Care Teams Wine Maker Relationship Specialty Start Date End Date Balaji Quinones MD [address] [place] [address] PCP - General Internal Medicine 11/25/13 Kristi Giles PharmD [address] [place] [address] Pharmacist Internal Medicine 01/30/22 documented as of this encounter
--- OUTSIDE RECORDS SUMMARY | 2024-04-23 11:56 | XMS_ITS | Encounter Summary ---
Author Organization [email or web address] Address 75 [facility] 7t [place] [address] Care Team Providers Care Chemical Handler Name Role Phone Balaji Quinones MD Primary Care Provide r Kristi Giles PharmD Unavailable [phone] Reason for Referral * Consultation (Urgent) - Authorized Specialty Diagnoses / Procedures Referred By Yaya aponte Referred To Contact Pulmonary Disease Diagnoses Mass in neck Balaji Quinones MD [address] [place] [address] Phone: tel: fax: Ki Castaneda [address] [place] [address] Phone: tel: Referral ID Status Reason Start Date Expiration Date Visits Requested Visits Authorized [id number] Authorized Specialty Services Required 04/14/2024 04/14/2025 1 1 Encounter Details Date Type Department Care Team ([facility] st Contact Info) Description 04/14/2024 Orders Only [facility] [address] [place] [address] Balaji Quinones MD [address] [place] [address] Mass in neck (Primary Dx) Social History [...] Description 05/27/2024 1:00 PM EDT Office Visit [facility] OPTOMETRY [address] [place] [address] Kaci Meadows, OD 230 [place] [address] 06/26/2024 1:15 PM EDT Office Visit [facility] 230 [place] [address] Balaji Quinones MD [address] [place] [address] Scheduled Referrals Name Type Priority Associated Diagnoses [...] documented as of this encounter Care Teams Chemical Handler Relationship Specialty Start Date End Date Balaji Quinones MD [address] [place] [address] PCP - General Internal Medicine 11/25/13 Kristi Giles PharmD [address] [place] [address] Pharmacist Internal Medicine 01/30/22 documented as of this encounter
--- OUTSIDE RECORDS SUMMARY | 2024-04-23 11:56 | XMS_ITS | Encounter Summary ---
Author Organization [employer] Address [address] [facility] [address] 7t [place] [address] Care Team Providers Care Auto Refinisher Name Role Phone Balaji Quinones MD Primary Care Provide r Kristi Giles PharmD Unavailable [phone] Reason for Visit * Reason Comments Med Refill Encounter Details Date Type Department Care Team ([facility] st Contact Info) Description 04/16/2024 Refill [facility] 230 [place] [address] Balaji Quinones MD [address] [place] [address] Dermatitis of lower extremity Social History Tobacco [...] Visit [facility] OPTOMETRY [address] [place] [address] Abdiel, Kaci, OD 230 [place] [address] 06/26/2024 1:15 PM EDT Office Visit [facility] [address] [place] [address] Balaji Quinones MD [address] [place] [address] documented as of this encounter Goals Goal [...] documented as of this encounter Care Teams Auto Refinisher Relationship Specialty Start Date End Date Balaji Quinones MD [address] [place] [address] PCP - General Internal Medicine 11/25/13 Kristi Giles, SarayD [address] [place] [address] Pharmacist Internal Medicine 01/30/22 documented as of this encounter
--- OUTSIDE RECORDS SUMMARY | 2024-04-23 11:56 | XMS_ITS | Encounter Summary ---
Author Organization [employer] Address 75 [facility] 7t [place] [address] Care Team Providers Care Tour Coordinator Name Role Phone Balaji Quinones MD Primary Care Provide r Kristi Giles PharmD Unavailable [phone] Reason for Visit * Reason Onset Date Comments Med Refill 01/30/2023 Encounter Details Date Type Department Care Team ([facility] st Contact Info) Description 01/30/2023 Telephone [facility] 230 [place] [address] Balaji Quinones MD [address] [place] [address] Med Refill Social History Tobacco Use Types [...] 81 MG EC tablet Please sent to [facility] - [place], [place] - [address] [facility] Pt is due on holidays but is requesting if medication could be given before than. documented in this encounter Plan of Treatment Upcoming Encounters Date Type Department Care Team (Late st Contact Info) Description 05/27/2024 1:00 PM EDT Office Visit [facility] OPTOMETRY [address] [place] [address] Kaci Meadows, OD 230 [place] [address] 06/26/2024 1:15 PM EDT Office Visit [facility] 230 [place] [address] Balaji Quinones MD [address] [place] [address] documented as of this encounter Goals Goal [...] Hypertension 128/80(2024 11:18 AM EST) No Kristi Giels PharmIvan Follow the DASH diet Diet No Kristi Giles PharmD Note: Look for foods that are low sodium. documented as of this encounter Visit Diagnoses Not on filedocumented in this encounter Care Teams Tour Coordinator Relationship Specialty Start Date End Date Balaji Quinones MD [address] [place] [address] PCP - General Internal Medicine 11/25/13 Kristi Giles, PharmD [address] [place] [address] Pharmacist Internal Medicine 01/30/22 documented as of this encounter
--- OUTSIDE RECORDS SUMMARY | 2024-04-23 11:56 | XMS_ITS | Encounter Summary ---
Author Organization [employer] Address 75 [facility] 7t [place] [address] Care Team Providers Care Specifications Checker Name Role Phone Balaji Quinones MD Primary Care Provide r Kristi Giles PharmD Unavailable [phone] Reason for Visit * Reason Comments Med Refill Encounter Details Date Type Department Care Team (Late Contact Info) Description 01/30/2023 Refill [facility] 230 [place] [address] Balaji Quinones MD 230 [place] [address] Social History Tobacco Use Types Packs/Day Years [...] [facility] OPTOMETRY [address] [place] [address] Kaci Meadows, OD 230 [place] [address] 06/26/2024 1:15 PM EDT Office Visit [facility] 230 [place] [address] Balaji Quinones MD [address] [place] [address] documented as of this encounter Goals Goal [...] on filedocumented in this encounter Care Teams Specifications Checker Relationship Specialty Start Date End Date Balaji Quinones MD [address] [place] [address] PCP - General Internal Medicine 11/25/13 Kristi Giles PharmD [address] [place] [address] Pharmacist Internal Medicine 01/30/22 documented as of this encounter
--- OUTSIDE RECORDS SUMMARY | 2024-04-23 11:56 | XMS_ITS | Encounter Summary ---
Author Organization [employer] Address [address] [facility] [address] 7t [place] [address] Care Team Providers Care Porcelain Buildup Assistant Name Role Phone Balaji Quinones MD Primary Care Provide r Kristi Giles PharmD Unavailable [phone] Reason for Visit * Reason Comments Med Refill Encounter Details Date Type Department Care Team ([facility] st Contact Info) Description 04/19/[address] [facility] 230 [place] [address] Balaji Quinones MD [address] [place] [address] Primary hypertension; Folliculitis Social History Tobacco Use [...] 05/27/2024 1:00 PM EDT Office Visit [facility] OPTOMETRY [address] [place] [address] Abdiel, Kaci, OD 230 [place] [address] 06/26/2024 1:15 PM EDT Office Visit [facility] [address] [place] [address] Balaji Quinones MD [address] [place] [address] documented as of this encounter Goals Goal [...] documented as of this encounter Care Teams Porcelain Buildup Assistant Relationship Specialty Start Date End Date Balaji Quinones MD [address] [place] [address] PCP - General Internal Medicine 11/25/13 Kristi Giles, SarayD [address] [place] [address] Pharmacist Internal Medicine 01/30/22 documented as of this encounter
--- OUTSIDE RECORDS SUMMARY | 2024-04-23 11:56 | XMS_ITS | Encounter Summary ---
Author Organization [employer] [facility] Address [address] [facility] 7t [place] [address] Care Team Providers Care Cad Technician Name Role Phone Balaji Quinones MD Primary Care Provide r Kristi Giles PharmD Unavailable [phone] Encounter Details Date Type Department Care Team (Late Contact Info) Description 09/08/2022 [facility] Information Management [address] [place] [address] Balaji Quinones MD 230 [place] [address] Social History Tobacco Use Types Packs/Day Years [...] Visit [facility] OPT[facility]RY [address] [place] [address] Kaci Meadows, OD 230 [place] [address] 06/26/2024 1:15 PM EDT Office Visit [facility] 230 [place] [address] Balaji Quinones MD 230 [place] [address] documented as of this encounter Goals Goal [...] on filedocumented in this encounter Care Teams Cad Technician Relationship Specialty Start Date End Date Balaji Quinones MD [address] [place] [address] PCP - General Internal Medicine 11/25/13 Kristi Giles PharmD [address] [place] [address] Pharmacist Internal Medicine 01/30/22 documented as of this encounter
--- OUTSIDE RECORDS SUMMARY | 2024-04-23 11:56 | XMS_ITS | Encounter Summary ---
Author Organization [employer] Address 75 [facility] 7t [place] [address] Care Team Providers Care Ex Assistant/Program Director Name Role Phone Balaji Quinones MD Primary Care Provide r Kristi Giles PharmD Unavailable [phone] Reason for Visit * Reason Comments Med Refill Encounter Details Date Type Department Care Team (Late st Contact Info) Description 10/27/2022 Refill [facility] [address] [place] [address] Clau Pascual ANP [address] [place] [address] Tinea pedis of both feet Social History [...] EDT Office Visit [facility] [address] [place] [address] Kaci Meadows, OD 230 [place] [address] 06/26/2024 1:15 PM EDT Office Visit [facility] [address] [place] [address] Balaji Quinones MD [address] [place] [address] documented as of this encounter Goals Goal [...] feet documented in this encounter Care Teams Ex Assistant/Program Director Relationship Specialty Start Date End Date Balaji Quinones MD [address] [place] [address] PCP - General Internal Medicine 11/25/13 Kristi Giles PharmD [address] [place] [address] Pharmacist Internal Medicine 01/30/22 documented as of this encounter
--- OUTSIDE RECORDS SUMMARY | 2024-04-23 11:56 | XMS_ITS | Encounter Summary ---
Author Organization [employer] Address 75 [facility] 7t [place] [address] Care Team Providers Care Inspector Metal Can Name Role Phone Balaji Quinones MD Primary Care Provide r Kristi Giles PharmD Unavailable [phone] Encounter Details Date Type Department Care Team ([facility] Contact Info) Description 06/22/2022 Abstract [facility] [address] [place] [address] Balaji Quinones MD [address] [place] [address] Social History Tobacco Use Types Packs/Day Years [...] Upcoming Encounters Date Type Department Care Team ([facility] Contact Info) Description 05/27/2024 1:00 PM EDT Office Visit [facility] OPTOMETRY [address] [place] [address] Abdiel, Kaci, OD 230 [place] [address] 06/26/2024 1:15 PM EDT Office Visit [facility] [address] [place] [address] Balaji Quinones MD [address] [place] [address] documented as of this encounter Goals Goal [...] EDT Recommended 10 year follow up ( [facility] us Historical Provider HEALTH MAINTENANCE Final Result documented in this encounter Visit Diagnoses Not on filedocumented in this encounter Care Teams Inspector Metal Can Relationship Specialty Start Date End Date Balaji Quinones MD [address] [place] [address] PCP - General Internal Medicine 11/25/13 Kristi Giles PharmD [address] [place], [place] [address] Pharmacist Internal Medicine 01/30/22 documented as of this encounter
--- OUTSIDE RECORDS SUMMARY | 2024-04-23 11:56 | XMS_ITS | Encounter Summary ---
Author Organization [employer] Address 75 [facility] 7t [place] [address] Care Team Providers Care Counselling Psychologist Name Role Phone Balaji Quinones MD Primary Care Provide r Kirsti Giles PharmD Unavailable [phone] Reason for Visit * Reason Comments Med Refill Encounter Details Date Type Department Care Team ([facility] st Contact Info) Description 04/20/2024 Refill [facility] 230 [place] [address] Balaji Quinones MD [address] [place] [address] Social History Tobacco Use Types Packs/Day Years [...] Description 05/27/2024 1:00 PM EDT Office Visit [facility] OPTOMETRY [address] [place] [address] Kaci Meadows, OD 230 [place] [address] 06/26/2024 1:15 PM EDT Office Visit [facility] [address] [place] [address] Balaji Quinones MD [address] [place] [address] documented as of this encounter Goals Goal [...] documented as of this encounter Care Teams Counselling Psychologist Relationship Specialty Start Date End Date Balaji Quinones MD [address] [place] [address] PCP - General Internal Medicine 11/25/13 Kristi Giles, PharmD [address] [place] [address] Pharmacist Internal Medicine 01/30/22 documented as of this encounter
--- OUTSIDE RECORDS SUMMARY | 2024-04-23 11:56 | XMS_ITS | Encounter Summary ---
Author Organization [employer] Address 75 [facility] 7t [place] [address] Care Team Providers Care Blood Bank Laboratory Professional Name Role Phone Balaji Quinones MD Primary Care Provide r Kristi Giles PharmD Unavailable [phone] Reason for Visit * Reason Comments Med Refill Encounter Details Date Type Department Care Team ([facility] Contact Info) Description 04/17/2022 Refill [facility] MED[facility]INE [address] [place] [address] Brook Guerrero MD [address] [place] [address] Other chronic pain Social History Tobacco Use [...] 1:00 PM EDT Office Visit [facility] OPTOMETRY [address] [place] [address] Abdiel, Kaci, OD 230 [place] [address] 06/26/2024 1:15 PM EDT Office Visit [facility] MEDICINE [address] [place] [address] Balaji Quinones MD [address] [place] [address] documented as of this encounter Goals Goal [...] pain documented in this encounter Care Teams Blood Bank Laboratory Professional Relationship Specialty Start Date End Date Balaji Quinones MD [address] [place] [address] PCP - General Internal Medicine 11/25/13 Kristi Giles PharmD [address] [place] [address] Pharmacist Internal Medicine 01/30/22 documented as of this encounter
--- OUTSIDE RECORDS SUMMARY | 2024-04-23 11:56 | XMS_ITS | Encounter Summary ---
Author Organization [employer] Address 75 [facility] 7t [place] [address] Care Team Providers Care Delivery Associate Name Role Phone Balaji Quinones MD Primary Care Provide r Kristi Giles PharmD Unavailable [phone] Reason for Visit * Reason Comments Med Refill Encounter Details Date Type Department Care Team ([facility] st Contact Info) Description 03/25/2024 Refill [facility] [address] [place] [address] Balaji Quinones MD [address] [place] [address] Primary hypertension Social History Tobacco Use Types [...] Description 05/27/2024 1:00 PM EDT Office Visit [facility] OPTOMETRY [address] [place] [address] Abdiel, Kaci, OD 230 [place] [address] 06/26/2024 1:15 PM EDT Office Visit [facility] [address] [place] [address] Balaji Quinones MD [address] [place] [address] documented as of this encounter Goals Goal [...] documented as of this encounter Care Teams Delivery Associate Relationship Specialty Start Date End Date Balaji Quinones MD [address] [place] [address] PCP - General Internal Medicine 11/25/13 Kristi Giles, SarayD [address] [place] [address] Pharmacist Internal Medicine 01/30/22 documented as of this encounter
--- OUTSIDE RECORDS SUMMARY | 2024-04-23 11:56 | XMS_ITS | Encounter Summary ---
Author Organization [employer] Address 75 [facility] 7t [place] [address] Care Team Providers Care Hull Sorter Name Role Phone Balaji Quinones MD Primary Care Provide r Kristi Giles PharmD Unavailable [phone] Reason for Visit * Reason Comments Med Refill Encounter Details Date Type Department Care Team (Late Contact Info) Description 03/08/2023 Refill [facility] [address] [place] [address] Balaji Quinones MD [address] [place] [address] Folliculitis Social History Tobacco Use Types Packs/Day [...] Description 05/27/2024 1:00 PM EDT Office Visit [facility] OPTOMETRY [address] [place] [address] Kaci Meadows, OD 230 [place] [address] 06/26/2024 1:15 PM EDT Office Visit [facility] MEDICINE [address] [place] [address] Balaji Quinones MD [address] [place] [address] documented as of this encounter Goals Goal [...] follicles documented in this encounter Care Teams Hull Sorter Relationship Specialty Start Date End Date Balaji Quinones MD [address] [place] [address] PCP - General Internal Medicine 11/25/13 Kristi Giles PharmD [address] [place] [address] Pharmacist Internal Medicine 01/30/22 documented as of this encounter
--- OUTSIDE RECORDS SUMMARY | 2024-04-23 11:56 | XMS_ITS | Encounter Summary ---
Author Organization [employer] Address 75 [facility] 7t [place] [address] Care Team Providers Care Director Of Rotc Name Role Phone Balaji Quinones MD Primary Care Provide r Kristi Giles PharmD Unavailable [phone] Reason for Visit * Reason Onset Date Comments Results 04/03/2024 Encounter Details Date Type Department Care Team ([facility] st Contact Info) Description 04/03/2024 Telephone [facility] MED[facility]INE [address] [place] [address] Balaji Quinones MD [address] [place] [address] Results Social History Tobacco Use Types Packs/Day [...] needs a call back from the PCP inspecting supervisor in regards to the pt most recent [...] requesting a call back from nurses or DOUGH MIXER regarding results from [facility] Chest. Mems Engineer provides fax number to [facility]. documented in this encounter Plan of Treatment Upcoming Encounters Date Type Department Care Team (Late st Contact Info) Description 05/27/2024 1:00 PM EDT Office Visit [facility] OPTOMETRY [address] [place] [address] Kaci Meadows, OD [address] [place] [address] 06/26/2024 1:15 PM EDT Office Visit [facility] MEDICINE [address] [place] [address] Balaji Quinones MD [address] [place] [address] documented as of this encounter Goals Goal [...] of this encounter Care Teams Director Of Rotc Relationship Specialty Start Date End Date Balaji Quinones MD [address] [place] [address] PCP - General Internal Medicine 11/25/13 Kirsti Giles PharmD [address] [place] [address] Pharmacist Internal Medicine 01/30/22 documented as of this encounter
--- OUTSIDE RECORDS SUMMARY | 2024-04-23 11:56 | XMS_ITS | Encounter Summary ---
Author Organization [employer] Address 75 [facility] 7t [place] [address] Care Team Providers Care Technical Marketing Consultant Name Role Phone Balaji Quinones MD Primary Care Provide r Kristi Giles PharmD Unavailable [phone] Reason for Visit * Reason Comments Med Refill Encounter Details Date Type Department Care Team (Late Contact Info) Description 01/30/2023 Refill [facility] [address] [place] [address] Balaji Quinones MD [address] [place] [address] Social History Tobacco Use Types Packs/Day Years [...] Description 05/27/2024 1:00 PM EDT Office Visit [facility] [address] [place] [address] Kaci Meadows, OD [address] [place] [address] 06/26/2024 1:15 PM EDT Office Visit [facility] [address] [place] [address] Balaji Quinones MD [address] [place] [address] documented as of this encounter Goals Goal [...] on filedocumented in this encounter Care Teams Technical Marketing Consultant Relationship Specialty Start Date End Date Balaji Quinones MD [address] [place] [address] PCP - General Internal Medicine 11/25/13 Kristi Giles PharmD [address] [place] [address] Pharmacist Internal Medicine 01/30/22 documented as of this encounter
--- OUTSIDE RECORDS SUMMARY | 2024-04-23 11:56 | XMS_ITS | Encounter Summary ---
Author Organization [employer] Address [address] [facility] [address] [place] [address] Care Team Providers Care Director Of Product Management Name Role Phone Balaji Quinones MD Primary Care Provide r Kristi Giles PharmD Unavailable [phone] Reason for Visit * Reason Comments Med Refill Encounter Details Date Type Department Care Team ([facility] st Contact Info) Description 12/24/2023 Refill [facility] [address] [place] [address] Balaji Quinones MD 230 [place] [address] Folliculitis Social History Tobacco Use Types Packs/Day [...] 1:00 PM EDT Office Visit [facility] OPTOMETRY [address] [place] [address] Abdiel, Kaci, OD 230 [place] [address] 06/26/2024 1:15 PM EDT Office Visit [facility] MED[facility]INE [address] [place] [address] Balaji Quinones MD 230 [place] [address] documented as of this encounter Goals Goal [...] of this encounter Care Teams Director Of Product Management Relationship Specialty Start Date End Date Balaji Quinones MD 230 [place] [address] PCP - General Internal Medicine 11/25/13 Kristi Giles, SarayD 230 [place] [address] Pharmacist Internal Medicine 01/30/22 documented as of this encounter
== END 2024-04-23 10:25 | disposition home or self-care (01) ==
LOC: HO.MRI 10:24
PROVIDERS: PCP Internal Medicine; Visit Provider Psychiatry & Neurology Neurology
DX: R55 Syncope and collapse (principal)
CPT/HCPCS: 70553; A9585

== ENCOUNTER → 2024-04-23 10:50 | Outpatient (BNV) | payer MEDICARE, MEDICAID, SELFPAY | PROVIDERS: PCP Internal Medicine; Visit Provider Radiology Diagnostic Radiology | DX: R55 Syncope and collapse (principal) | CPT/HCPCS: 70553 ==

== ENCOUNTER 2024-04-28 09:34 | Day surgery (SDC) | payer MEDICARE, MEDICAID, SELFPAY ==
--- OUTSIDE RECORDS SUMMARY | 2024-04-16 14:30 | XMS_ITS | Encounter Summary ---
Author Organization [employer] Address 75 [facility] 7t [place] [address] Care Team Providers Care Fish Cleaner Name Role Phone Balaji Quinones MD Primary Care Provide r Kristi Giles PharmD Unavailable [phone] Encounter Details Date Type Department Care Team ([facility] Contact Info) Description 01/28/2022 Abstract [facility] [address] [place] [address] Kristi Giles, PharmD [address] [place] [address] Social History Tobacco Use Types Packs/Day Years [...] Description 05/27/2024 1:00 PM EDT Office Visit [facility] [address] [place] [address] Kaci Meadows, OD [address] [place] [address] 06/26/2024 1:15 PM EDT Office Visit [facility] [address] [place] [address] Balaji Quinones MD [address] [place] [address] documented as of this encounter Goals Goal [...] on filedocumented in this encounter Care Teams Fish Cleaner Relationship Specialty Start Date End Date Balaji Quinones MD [address] [place] [address] PCP - General Internal Medicine 11/25/13 Kristi Giles PharmD [address] [place] [address] Pharmacist Internal Medicine 01/30/22 documented as of this encounter
--- OUTSIDE RECORDS SUMMARY | 2024-04-16 14:30 | XMS_ITS | Encounter Summary ---
Author Organization [employer] Address 75 [facility] 7t [place] [address] Care Team Providers Care Trailer Sections Assembler Name Role Phone Balaji Quinones MD Primary Care Provide r Kristi Giles PharmD Unavailable [phone] Reason for Visit * Reason Onset Date Comments Results 04/15/2024 Encounter Details Date Type Department Care Team ([facility] st Contact Info) Description 04/15/2024 Telephone [facility] [address] [place] [address] Balaji Quinones MD [address] [place] [address] Results Social History Tobacco Use Types Packs/Day [...] AM EST TC placed to pt with [facility] certified court interpreter #[id number] to inform of the pt CTA chest [...] call regarding prior message. Contact pt at [phone] * Telephone Encounter - Lilly Rice RN - 04/15/2024 8:54 AM EST Telephone call x1 to pt to advise of results and referral, no answer, left voicemail to call back [facility]. Will task to call again. --Dr Grimes [...] 1:00 PM EDT Office Visit [facility] [address] [place] [address] Kaci Meadows, OD [address] [place] [address] 06/26/2024 1:15 PM EDT Office Visit [facility] [address] [place] [address] Balaji Quinones MD [address] [place] [address] documented as of this encounter Goals Goal [...] documented as of this encounter Care Teams Trailer Sections Assembler Relationship Specialty Start Date End Date Balaji Quinones MD [address] [place] [address] PCP - General Internal Medicine 11/25/13 Kristi Giles, SarayD [address] [place] [address] Pharmacist Internal Medicine 01/30/22 documented as of this encounter
--- OUTSIDE RECORDS SUMMARY | 2024-04-16 14:30 | XMS_ITS | Encounter Summary ---
Author Organization [employer] Address [address] [facility] [address] 7t [place] [address] Care Team Providers Care Hospital Ward Clerk Name Role Phone Balaji Quinones MD Primary Care Provide r Kristi Giles PharmD Unavailable [phone] Reason for Visit * Reason Comments Med Refill Encounter Details Date Type Department Care Team (Late Contact Info) Description 05/11/2022 Refill [facility] 230 [place] [address] Balaji Quinones MD 230 [place] [address] Swelling of right middle finger Social History [...] 1:00 PM EDT Office Visit [facility] OPTOMETRY [address] [place] [address] AbdielKaci yi, OD 230 [place] [address] 06/26/2024 1:15 PM EDT Office Visit [facility] MEDICINE 230 [place], [place] [phone] Balaji Quinones MD 230 [place] [address] documented as of this encounter Goals Goal [...] finger documented in this encounter Care Teams Hospital Ward Clerk Relationship Specialty Start Date End Date Balaji Quinones MD [address] [place] [address] [id number] PCP - General Internal Medicine 11/25/13 Kristi Giles PharmD [address] [place] [address] Pharmacist Internal Medicine 01/30/22 documented as of this encounter
--- OUTSIDE RECORDS SUMMARY | 2024-04-16 14:30 | XMS_ITS | Encounter Summary ---
Author Organization [employer] Address [address] [facility] [address] 7t [place] [address] Care Team Providers Care Machine Operator Replanter Name Role Phone Balaji Quinones MD Primary Care Provide r Kristi Giles PharmD Unavailable [phone] Reason for Visit * Reason Comments Med Refill Encounter Details Date Type Department Care Team ([facility] st Contact Info) Description 08/01/2023 Refill [facility] WALK[facility]IN CENTER 230 [place] [address] Vani Stallworth MD 230 [place] [address] Folliculitis Social History Tobacco Use Types Packs/Day [...] Description 05/27/2024 1:00 PM EDT Office Visit [facility] OPTOMETRY [address] [place] [address] Abdiel, Kaci, OD 230 [place] [address] 06/26/2024 1:15 PM EDT Office Visit [facility] MEDICINE 230 [place] [address] Balaji Quinones MD 230 [place] [address] documented as of this encounter Goals Goal [...] documented as of this encounter Care Teams Machine Operator Replanter Relationship Specialty Start Date End Date Balaji Quinones MD [address] [place] [address] PCP - General Internal Medicine 11/25/13 Kristi Giles, SarayD [address] [place] [address] Pharmacist Internal Medicine 01/30/22 documented as of this encounter
--- OUTSIDE RECORDS SUMMARY | 2024-04-16 14:30 | XMS_ITS | Encounter Summary ---
Author Organization [employer] Address [address] [facility] 7t [place] [address] Care Team Providers Care Rhic Systems Safety Engineer Name Role Phone Balaji Quinones MD Primary Care Provide r Kristi Giles PharmD Unavailable [phone] Encounter Details Date Type Department Care Team (Late Contact Info) Description 09/08/2022 [facility] Health Information Management 230 [place] [address] Balaji Quinones MD 230 [place] [address] Social History Tobacco Use Types Packs/Day Years [...] Description 05/27/2024 1:00 PM EDT Office Visit [facility] OPTOMETRY 267 [place] [address] Kaci Meadows, OD 230 [place] [address] 06/26/2024 1:15 PM EDT Office Visit [facility] MEDICINE 230 [place] [address] Balaji Quinones MD 230 [place] [address] documented as of this encounter Goals Goal [...] on filedocumented in this encounter Care Teams [employer] Safety Engineer Relationship Specialty Start Date End Date Balaji Quinones MD [address] [place] [address] PCP - General Internal Medicine 11/25/13 Kristi Glies PharmD [address] [place] [address] Pharmacist Internal Medicine 01/30/22 documented as of this encounter
--- OUTSIDE RECORDS SUMMARY | 2024-04-16 14:30 | XMS_ITS | Encounter Summary ---
Author Organization [employer] Address 75 [facility] 7t [place] [address] Care Team Providers Care Exhaust Machine Operator Name Role Phone Balaji Quinones MD Primary Care Provide r Kristi Giles PharmD Unavailable [phone] Reason for Visit * Reason Comments Med Refill Encounter Details Date Type Department Care Team ([facility] st Contact Info) Description 03/14/2024 Refill [facility] MEDICINE 230 [place] [address] Balaji Quinones MD 230 [place] [address] Dry eyes Social History Tobacco Use Types [...] Description 05/27/2024 1:00 PM EDT Office Visit [facility] OPTOMETRY [address] [place] [address] Abdiel, Kaci, OD 230 [place] [address] 06/26/2024 1:15 PM EDT Office Visit [facility] MEDICINE 230 [place] [address] Balaji Quinones MD 230 [place] [address] documented as of this encounter Goals Goal [...] documented as of this encounter Care Teams Exhaust Machine Operator Relationship Specialty Start Date End Date Balaji Quinones MD 230 [place], [place] [phone] PCP - General Internal Medicine 11/25/13 Kristi Giles PharmD 230 [place], [place] [phone] Pharmacist Internal Medicine 01/30/22 documented as of this encounter
--- OUTSIDE RECORDS SUMMARY | 2024-04-16 14:30 | XMS_ITS | Encounter Summary ---
Author Organization [employer] Address [address] [facility] [address] 7t [place] [address] Care Team Providers Care Ribbon Sweatband Operator Name Role Phone Balaji Quinones MD Primary Care Provide r Kristi Giles PharmD Unavailable [phone] Reason for Visit * Reason Comments Med Refill Encounter Details Date Type Department Care Team ([facility] st Contact Info) Description 06/25/2023 Refill [facility] WALK[facility]IN [facility] 230 [place] [address] Balaji Quinones MD 230 [place] [address] Folliculitis Social History Tobacco Use Types Packs/Day [...] [facility] OPTOMETRY [address] [place] [address] Abdiel, Kaci, OD 230 [place] [address] 06/26/2024 1:15 PM EDT Office Visit [facility] MEDICINE 230 [place] [address] Balaji Quinones MD 230 [place] [address] documented as of this encounter Goals Goal [...] documented as of this encounter Care Teams Ribbon Sweatband Operator Relationship Specialty Start Date End Date Balaji Quinones MD 230 [place] [address] PCP - General Internal Medicine 11/25/13 Kristi Giles, Quentin 230 [place] [address] Pharmacist Internal Medicine 01/30/22 documented as of this encounter
--- OUTSIDE RECORDS SUMMARY | 2024-04-16 14:30 | XMS_ITS | Encounter Summary ---
Author Organization [employer] Address [address] [facility] 7t [place] [address] Care Team Providers Care Bilingual Teacher Aide Name Role Phone Balaji Quinones MD Primary Care Provide r Kristi Giles PharmD Unavailable [phone] Reason for Visit * Reason Comments Med Refill Encounter Details Date Type Department Care Team ([facility] Contact Info) Description 04/17/2022 Refill [facility] MEDICINE 230 [place] [address] Brook Guerrero MD 230 [place] [address] Other chronic pain Social History Tobacco Use [...] Description 05/27/2024 1:00 PM EDT Office Visit [facility] OPTOMETRY [address] [place] [address] Abdiel, Kaci, OD 230 [place] [address] 06/26/2024 1:15 PM EDT Office Visit [facility] MEDICINE 230 [place] [address] Balaji Quinones MD 230 [place] [address] documented as of this encounter Goals Goal [...] pain documented in this encounter Care Teams Bilingual Teacher Aide Relationship Specialty Start Date End Date Balaji Quinones MD 230 [place] [address] PCP - General Internal Medicine 11/25/13 Kristi Giles PharmD 230 [place] [address] Pharmacist Internal Medicine 01/30/22 documented as of this encounter
--- OUTSIDE RECORDS SUMMARY | 2024-04-16 14:30 | XMS_ITS | Encounter Summary ---
Author Organization [employer] Address [address] [facility] [address] 7t [place] [address] Care Team Providers Care Rn Chronic Name Role Phone Balaji Quinones MD Primary Care Provide r Kristi Giles PharmD Unavailable [phone] Reason for Visit * Reason Comments Med Refill Encounter Details Date Type Department Care Team (Late st Contact Info) Description 06/11/2023 Refill [facility] [address] [place] [address] Balaji Quinones MD [address] [place] [address] Swelling of right middle finger Social History [...] Description 05/27/2024 1:00 PM EDT Office Visit [facility] OPTOMETRY 267 [place] [address] Abdiel, Kaci, OD 230 [place] [address] 06/26/2024 1:15 PM EDT Office Visit [facility] MEDICINE 230 [place] [address] Balaji Quinones MD 230 [place] [address] documented as of this encounter Goals Goal [...] documented as of this encounter Care Teams Rn Chronic Relationship Specialty Start Date End Date Balaji Quinones MD [address] [place] [address] PCP - General Internal Medicine 11/25/13 Kristi Giles, SarayD [address] [place] [address] Pharmacist Internal Medicine 01/30/22 documented as of this encounter
--- OUTSIDE RECORDS SUMMARY | 2024-04-16 14:30 | XMS_ITS | Encounter Summary ---
Author Organization [employer] Address [address] [facility] 7t [place] [address] Care Team Providers Care Cashier And Salesperson Name Role Phone Balaji Quinones MD Primary Care Provide r Kristi Giles PharmD Unavailable [phone] Reason for Visit * Reason Onset Date Comments Results 04/03/2024 Encounter Details Date Type Department Care Team ([facility] st Contact Info) Description 04/03/2024 Telephone [facility] MEDICINE 230 [place] [address] Balaji Quinones MD 230 [place] [address] Results Social History Tobacco Use Types Packs/Day [...] needs a call back from the PCP roofing tile sorter in regards to the pt most recent [...] requesting a call back from nurses or INFORMATION TECHNOLOGY PROGRAM MANAGER regarding results from [facility]. Electrical Controls Engineer provides fax number to [employer]. documented in this encounter Plan of Treatment Upcoming Encounters Date Type Department Care Team (Late st Contact Info) Description 05/27/2024 1:00 PM EDT Office Visit [facility] OPTOMETRY [address] [place] [address] Kaci Meadows, OD 230 [place] [address] 06/26/2024 1:15 PM EDT Office Visit [facility] MEDICINE 230 [place] [address] Balaji Quinones MD 230 [place] [address] documented as of this encounter Goals Goal [...] documented as of this encounter Care Teams Cashier And Salesperson Relationship Specialty Start Date End Date Balaji Quinones MD 230 [place] [address] PCP - General Internal Medicine 11/25/13 Kristi Giles PharmD 230 [place] [address] Pharmacist Internal Medicine 01/30/22 documented as of this encounter
--- OUTSIDE RECORDS SUMMARY | 2024-04-16 14:30 | XMS_ITS | Encounter Summary ---
Author Organization [employer] Address [address] [facility] 7t [place] [address] Care Team Providers Care It Support Analyst Name Role Phone Balaji Quinones MD Primary Care Provide r Kristi Giles PharmD Unavailable [phone] Reason for Visit * Reason Comments Med Refill Encounter Details Date Type Department Care Team (Late Contact Info) Description 03/01/2023 Refill [facility] MEDICINE 230 [place] [address] Balaji Quinones MD 230 [place] [address] Type 2 diabetes mellitus without complication, unspecified whether exterminator helper insulin use ([facility]) Social History Tobacco Use Types Packs/Day Years [...] 05/27/2024 1:00 PM EDT Office Visit [facility] OPTOMETRY [address] [place] [address] Abdiel, Kaci, OD 230 [place] [address] 06/26/2024 1:15 PM EDT Office Visit [facility] MEDICINE 230 [place] [address] Balaji Quinones MD 230 [place] [address] documented as of this encounter Goals Goal [...] without complication, unspecified whether fpc insulin use ([facility]) documented in this encounter Care Teams It Support Analyst Relationship Specialty Start Date End Date Balaji Quinones MD [address] [place] [address] PCP - General Internal Medicine 11/25/13 Kristi Giles PharmD [address] [place] [address] Pharmacist Internal Medicine 01/30/22 documented as of this encounter
--- OUTSIDE RECORDS SUMMARY | 2024-04-16 14:30 | XMS_ITS | Encounter Summary ---
Author Organization [employer] Address [address] [facility] [address] 7t [place] [address] Care Team Providers Care Manager Site Name Role Phone Balaji Quinones MD Primary Care Provide r Kristi Giles PharmD Unavailable [phone] Reason for Visit * Reason Comments Med Refill Encounter Details Date Type Department Care Team ([facility] st Contact Info) Description 12/24/2023 Refill [facility] WALK-IN CENTER 230 [place] [address] Balaji Quinones MD 230 [place] [address] Folliculitis Social History Tobacco Use Types Packs/Day [...] Description 05/27/2024 1:00 PM EDT Office Visit [facility] OPTOMETRY 267 [place] [address] Abdiel, Kaci, OD 230 [place] [address] 06/26/2024 1:15 PM EDT Office Visit [facility] MEDICINE 230 [place] [address] Balaji Quinones MD 230 [place] [address] documented as of this encounter Goals Goal [...] documented as of this encounter Care Teams Manager Site Relationship Specialty Start Date End Date Balaji Quinones MD 230 [place] [address] PCP - General Internal Medicine 11/25/13 Kristi Giles, SarayD 230 [place] [address] Pharmacist Internal Medicine 01/30/22 documented as of this encounter
--- OUTSIDE RECORDS SUMMARY | 2024-04-16 14:30 | XMS_ITS | Encounter Summary ---
Author Organization [employer] Address [address] [facility] 7t [place] [address] Care Team Providers Care Procurement Assistant Name Role Phone Balaji Quinones MD Primary Care Provide r Kristi Giles PharmD Unavailable [phone] Reason for Visit * Reason Comments Med Refill Encounter Details Date Type Department Care Team (Late Contact Info) Description 01/28/2023 Refill [facility] WALK-IN CENTER [address] [place] [address] Balaji Quinones MD 230 [place] [address] Social History Tobacco Use Types Packs/Day Years [...] 05/27/2024 1:00 PM EDT Office Visit [facility] OPTOMETRY [address] [place] [address] Kaci Meadows, OD 230 [place] [address] 06/26/2024 1:15 PM EDT Office Visit [facility] MEDICINE [address] [place] [address] Balaji Quinones MD 230 [place] [address] documented as of this encounter Goals Goal [...] on filedocumented in this encounter Care Teams Procurement Assistant Relationship Specialty Start Date End Date Balaji Quinones MD 230 [place] [address] PCP - General Internal Medicine 11/25/13 Kristi Giles PharmD [address] [place] [address] Pharmacist Internal Medicine 01/30/22 documented as of this encounter
--- OUTSIDE RECORDS SUMMARY | 2024-04-16 14:30 | XMS_ITS | Encounter Summary ---
Author Organization [employer] Address 75 [facility] 7t [place] [address] Care Team Providers Care Educational Advisor Name Role Phone Balaji Quinones MD Primary Care Provide r Kristi Giles PharmD Unavailable [phone] Reason for Visit * Reason Comments Med Refill Encounter Details Date Type Department Care Team ([facility] st Contact Info) Description 04/16/2024 Refill [facility] MEDICINE 230 [place] [address] Balaji Quinones MD 230 [place] [address] Dermatitis of lower extremity Social History Tobacco [...] Description 05/27/2024 1:00 PM EDT Office Visit [facility] OPTOMETRY [address] [place] [address] Abdiel, Kaci, OD 230 [place] [address] 06/26/2024 1:15 PM EDT Office Visit [facility] MEDICINE 230 [place] [address] Balaji Quinones MD 230 [place] [address] documented as of this encounter Goals Goal [...] documented as of this encounter Care Teams Educational Advisor Relationship Specialty Start Date End Date Balaji Quinones MD 230 [place] [address] PCP - General Internal Medicine 11/25/13 Kristi Giles, SarayD [address] [place] [address] Pharmacist Internal Medicine 01/30/22 documented as of this encounter
--- OUTSIDE RECORDS SUMMARY | 2024-04-16 14:30 | XMS_ITS | Encounter Summary ---
Author Organization [employer] Address 75 [facility] 7t [place] [address] Care Team Providers Care Accounts Collector Name Role Phone Balaji Quinones MD Primary Care Provide r Kristi Giles PharmD Unavailable [phone] Reason for Visit * Reason Comments Med Refill Encounter Details Date Type Department Care Team ([facility] st Contact Info) Description 03/25/2024 Refill [facility] MEDICINE 230 [place] [address] Balaji Quinones MD 230 [place] [address] Primary hypertension Social History Tobacco Use Types [...] 05/27/2024 1:00 PM EDT Office Visit [facility] OPTOMETRY [address] [place] [address] Abdiel, Kaci, OD 230 [place] [address] 06/26/2024 1:15 PM EDT Office Visit [facility] MEDICINE 230 [place] [address] Balaji Quinones MD 230 [place] [address] documented as of this encounter Goals Goal [...] documented as of this encounter Care Teams Accounts Collector Relationship Specialty Start Date End Date Balaji Quinones MD 230 [place] [address] PCP - General Internal Medicine 11/25/13 Kristi Giles, SarayD 230 [place] [address] Pharmacist Internal Medicine 01/30/22 documented as of this encounter
--- OUTSIDE RECORDS SUMMARY | 2024-04-16 14:30 | XMS_ITS | Encounter Summary ---
Author Organization [employer] Address [address] [facility] [address] 7t [place] [address] Care Team Providers Care Business Practices Officer Name Role Phone Balaji Quinones MD Primary Care Provide r Kristi Giles PharmD Unavailable [phone] Reason for Visit * Reason Comments Med Refill Encounter Details Date Type Department Care Team ([facility] st Contact Info) Description 04/19/2023 Refill [facility] MEDICINE 230 [place] [address] Balaji Quinones MD 230 [place] [address] Primary hypertension; Folliculitis Social History Tobacco Use [...] 1:00 PM EDT Office Visit [facility] OPTOMETRY [address] [place] [address] Abdiel, Kaci, OD 230 [place] [address] 06/26/2024 1:15 PM EDT Office Visit [facility] MEDICINE 230 [place] [address] Balaji Quinones MD 230 [place] [address] documented as of this encounter Goals Goal [...] as of this encounter Care Teams Business Practices Officer Relationship Specialty Start Date End Date Balaji Quinones MD 230 [place] [address] PCP - General Internal Medicine 11/25/13 Kristi Giles, SarayD 230 [place] [address] Pharmacist Internal Medicine 01/30/22 documented as of this encounter
--- OUTSIDE RECORDS SUMMARY | 2024-04-16 14:30 | XMS_ITS | Encounter Summary ---
Author Organization [employer] Address 75 [facility] 7t [place] [address] Care Team Providers Care Indigo Mixer Name Role Phone Balaji Quinones MD Primary Care Provide r Kristi Giles PharmD Unavailable [phone] Reason for Visit * Reason Comments Med Refill Encounter Details Date Type Department Care Team (Late Contact Info) Description 03/08/2023 Refill [facility] WALK-IN CENTER 230 [place] [address] Balaji Quinones MD 230 [place] [address] Folliculitis Social History Tobacco Use Types Packs/Day [...] Description 05/27/2024 1:00 PM EDT Office Visit [facility] OPTOMETRY [address] [place] [address] Kaci Meadows, OD 230 [place] [address] 06/26/2024 1:15 PM EDT Office Visit [facility] MEDICINE 230 [place] [address] Balaji Quinones MD 230 [place] [address] documented as of this encounter Goals Goal [...] follicles documented in this encounter Care Teams Indigo Mixer Relationship Specialty Start Date End Date Balaji Quinones MD 230 [place] [address] PCP - General Internal Medicine 11/25/13 Kristi Giles PharmD 230 [place] [address] Pharmacist Internal Medicine 01/30/22 documented as of this encounter
--- OUTSIDE RECORDS SUMMARY | 2024-04-16 14:30 | XMS_ITS | Encounter Summary ---
Author Organization [employer] Address 75 [facility] 7t [place] [address] Care Team Providers Care Handle Lathe Operator Name Role Phone Balaji Quinones MD Primary Care Provide r Kristi Giles PharmD Unavailable [phone] Reason for Referral * Consultation (Urgent) - Authorized Specialty Diagnoses / Procedures Referred By Yaya aponte Referred To Contact Pulmonary Disease Diagnoses Mass in neck Balaji Quinones MD 230 [place] [address] Phone: tel: fax: Ki Castaneda [address] [place] [address] Phone: tel: Referral ID Status Reason Start Date Expiration Date Visits Requested Visits Authorized [id number] Authorized Specialty Services Required 04/14/2024 04/14/2025 1 1 Encounter Details Date Type Department Care Team ([facility] st Contact Info) Description 04/14/2024 Orders Only [facility] MEDICINE 230 [place] [address] Balaji Quinones MD 230 [place] [address] Mass in neck (Primary Dx) Social History [...] Visit [facility] OPTOMETRY [address] [place] [address] Kaci Meadows, OD 230 [place] [address] 06/26/2024 1:15 PM EDT Office Visit [facility] MEDICINE 230 [place] [address] Balaji Quinones MD 230 [place] [address] Scheduled Referrals Name Type Priority Associated Diagnoses [...] documented as of this encounter Care Teams Handle Lathe Operator Relationship Specialty Start Date End Date Balaji Quinones MD 230 [place] [address] PCP - General Internal Medicine 11/25/13 Kristi Giles PharmD 230 [place] [address] Pharmacist Internal Medicine 01/30/22 documented as of this encounter
--- OUTSIDE RECORDS SUMMARY | 2024-04-16 14:30 | XMS_ITS | Encounter Summary ---
Author Organization [employer] Address 75 [facility] 7t [place] [address] Care Team Providers Care Blood Bank Laboratory Technician Name Role Phone Balaji Quinones MD Primary Care Provide r Kristi Giles PharmD Unavailable [phone] Reason for Visit * Reason Comments Med Refill Encounter Details Date Type Department Care Team (Late st Contact Info) Description 10/27/[address] [facility] MEDICINE 230 [place] [address] Balaji Quinones MD 230 [place] [address] Dermatitis of lower extremity Social History Tobacco [...] 1:00 PM EDT Office Visit [facility] OPTOMETRY [address] [place] [address] Kaci Meadows, OD 230 [place] [address] 06/26/2024 1:15 PM EDT Office Visit [facility] MEDICINE 230 [place] [address] Balaji Quinones MD [address] [place] [address] documented as of this encounter Goals Goal [...] extremity documented in this encounter Care Teams Blood Bank Laboratory Technician Relationship Specialty Start Date End Date Balaji Quinones MD [address] [place] [address] PCP - General Internal Medicine 11/25/13 Kristi Giles PharmD [address] [place] [address] Pharmacist Internal Medicine 01/30/22 documented as of this encounter
--- OUTSIDE RECORDS SUMMARY | 2024-04-16 14:30 | XMS_ITS | Encounter Summary ---
Author Organization [employer] Address 75 [facility] 7t [place] [address] Care Team Providers Care Manager Call Center Name Role Phone Balaji Quinones MD Primary Care Provide r Kristi Giles PharmD Unavailable [phone] Encounter Details Date Type Department Care Team (Special Care Hospital Contact Info) Description 06/22/2022 Abstract [facility] [address] [place] [address] Balaji Quinones MD [address] [place] [address] Social History Tobacco Use Types Packs/Day Years [...] Upcoming Encounters Date Type Department Care Team (Special Care Hospital Contact Info) Description 05/27/2024 1:00 PM EDT Office Visit [facility] [address] [place] [address] Abdiel, Kaci, OD 230 [place] [address] 06/26/2024 1:15 PM EDT Office Visit [facility] [address] [place] [address] Balaji Quinones MD 230 [place] [address] documented as of this encounter Goals Goal [...] EDT Recommended 10 year [place] ( [facility] [place] us Historical Provider HEALTH MAINTENANCE Final Result documented in this encounter Visit Diagnoses Not on filedocumented in this encounter Care Teams Manager Call Center Relationship Specialty Start Date End Date Balaji Quinones MD [address] [place] [address] PCP - General Internal Medicine 11/25/13 Kristi Giles PharmD [address] [place], [place] [phone] Pharmacist Internal Medicine 01/30/22 documented as of this encounter
--- OUTSIDE RECORDS SUMMARY | 2024-04-16 14:30 | XMS_ITS | Encounter Summary ---
Author Organization [employer] Address 75 [facility] 7t [place] [address] Care Team Providers Care Poultry Pathologist Name Role Phone Balaji Quinones MD Primary Care Provide r Kristi Giles PharmD Unavailable [phone] Reason for Visit * Reason Comments Med Refill Encounter Details Date Type Department Care Team (Late st Contact Info) Description 09/17/2022 Refill [facility] [address] [place] [address] Balaji Quinones MD 230 [place] [address] Dry eyes Social History Tobacco Use Types [...] 1:00 PM EDT Office Visit [facility] [address] [place] [address] Kaci Meadows, OD 230 [place] [address] 06/26/2024 1:15 PM EDT Office Visit [facility] [address] [place] [address] Balaji Quinones MD [address] [place] [address] documented as of this encounter Goals Goal [...] insufficiency documented in this encounter Care Teams Poultry Pathologist Relationship Specialty Start Date End Date Balaji Quinones MD [address] [place] [address] PCP - General Internal Medicine 11/25/13 Kristi Giles PharmD [address] [place] [address] Pharmacist Internal Medicine 01/30/22 documented as of this encounter
--- OUTSIDE RECORDS SUMMARY | 2024-04-16 14:30 | XMS_ITS | Encounter Summary ---
Author Organization [employer] Address 75 [facility] 7t [place] [address] Care Team Providers Care Gliding Pilot Instructor Name Role Phone Balaji Quinones MD Primary Care Provide r Kristi Giles PharmD Unavailable [phone] Reason for Visit * Reason Comments Med Refill Encounter Details Date Type Department Care Team (Late st Contact Info) Description 10/27/2022 Refill [facility] 230 [place] [address] Clau Pascual ANP [address] [place] [address] Tinea pedis of both feet Social History [...] Visit [facility] [address] [place] [address] Kaci Meadows, OD 230 [place] [address] 06/26/2024 1:15 PM EDT Office Visit [facility] 230 [place] [address] Balaji Quinones MD [address] [place] [address] documented as of this encounter Goals Goal [...] feet documented in this encounter Care Teams Gliding Pilot Instructor Relationship Specialty Start Date End Date Balaji Quinones MD [address] [place] [address] PCP - General Internal Medicine 11/25/13 Kristi Giles PharmD [address] [place] [address] Pharmacist Internal Medicine 01/30/22 documented as of this encounter
--- OUTSIDE RECORDS SUMMARY | 2024-04-16 14:31 | XMS_ITS | Encounter Summary ---
Author Organization [employer] Address 75 [facility] 7t [place] [address] Care Team Providers Care Microfilm Mounter Name Role Phone Balaji Quinones MD Primary Care Provide r Kristi Giles PharmD Unavailable [phone] Reason for Visit * Reason Comments Med Refill Encounter Details Date Type Department Care Team (Late Contact Info) Description 01/30/2023 Refill [facility] 230 [place] [address] Balaji Quinones MD 230 [place] [address] Social History Tobacco Use Types Packs/Day Years [...] [facility] [address] [place] [address] Kaci Meadows, OD 230 [place] [address] 06/26/2024 1:15 PM EDT Office Visit [facility] [address] [place] [address] Balaji Quinones MD [address] [place] [address] documented as of this encounter Goals Goal [...] on filedocumented in this encounter Care Teams Microfilm Mounter Relationship Specialty Start Date End Date Balaji Quinones MD [address] [place] [address] PCP - General Internal Medicine 11/25/13 Kristi Giles PharmD [address] [place] [address] Pharmacist Internal Medicine 01/30/22 documented as of this encounter
--- OUTSIDE RECORDS SUMMARY | 2024-04-16 14:31 | XMS_ITS | Clinical Summary ---
Author Organization [employer] Address [address] [facility] [address] 7t [place] [address] Care Team Providers Care Medical Office Secretary Name Role Phone Balaji Quinones MD Primary Care Provide r Kristi Giles PharmD Unavailable [phone] Allergies No known active allergies Medications sertraline [...] unspecified whether tank terminal gauger insulin use ([facility]) TAKE 1 TABLET BY MOUTH ONCE DAILY WITH BREAKFAST DO NOT BREAK, CRUSH, DISSOLVE OR CHEW 90 tablet 1 11/14/19 24 Active glucose blood (FREESTYLE LITE) test stripIndications: Type 2 diabetes mellitus with hyperlipidemia ([facility]) ([facility]) TEST BLOOD SUGAR ONCE DAILY 100 each 12/28/19 24 Active TRUEplus Lancets 33G miscIndications:T ype 2 diabetes mellitus with hyperlipidemia ([facility]/HCC) ([facility]) TEST BLOOD SUGAR ONCE DAILY ICD10= 100 each 12/28/19 24 Active metFORMIN (Glucophage) 1000 MG tabletIndications :Type 2 diabetes mellitus without complication, unspecified whether tank terminal gauger insulin use ([facility]) TAKE 1 TABLET BY MOUTH [...] unspecified whether tank terminal gauger insulin use ([facility]) Take 1 tablet (45 mg) [...] 4:19 PM EST): Pt seen at our [facility] 12/28/[address] Lloyd Puckett After pt was walking on sidewalk, felt sudden dizzy, unable to describe dizziness, and the next thing he remembers is being on the ground with facial injuries, abrasions on knees and left wrist. His nndqvjvg-dr-cxb brought him to [facility]. Denied headache, chest pain, SOB, n/v/d, or recent illness. States has many year h/o similar recurrent episodes of dizziness that he cannot describe, occasionally falls. ECG today shows sinus arrythmia, IVCD, PACs. Pt tells me he already has a follow up scheduled with Dr. Peres his hide examiner Plan: Obtain ECHO, ECG, EEG. CT of [...] has appointment for an ultrasound coming up [facility] care 05/11/2022 Assessment & Plan (11/22/2023 [...] of 3.9 cm. Pt was referred to [facility]. He was seen 11/06/2016 [...] of 3.9 cm. Pt was referred to [facility]. He was seen 11/06/2016 [...] of 3.9 cm. Pt was referred to [facility]. He was seen 11/06/2016 [...] of 3.9 cm. Pt was referred to [facility]. He was seen 11/06/2016 [...] Type Department Care Team Description 04/16/2024 Refill [facility] [address] [place] [address] Balaji Quinones MD Dermatitis of lower extremity 04/15/2024 Telephone [facility] [address] [place] [address] Balaji Quinones MD Results 04/14/2024 Orders Only [facility] [address] [place] [address] Balaji Quinones MD Mass in neck (Primary Dx) 04/03/2024 Telephone [facility] [address] [place], [place] [address] Balaji Quinones MD Results 03/25/2024 Refill [facility] [address] [place], [place] [address] Balaji Quinones MD Primary hypertension 03/14/2024 Refill [facility] [address] [place], [place] [address] Balaji Quinones MD Dry eyes 03/06/2024 Refill [facility] [address] [place], [place] [address] Pam Lemons MD Tinea pedis of both feet 02/27/2024 Telephone [facility] [address] [place], [place] [address] Balaji Quinones MD FYI 02/20/2024 Refill [facility] [address] [place], [place] [address] Balaji Quinones MD Dermatitis of lower extremity 02/14/2024 11:30 AM EST Office Visit [facility] [address] [place], [place] [address] Balaji Quinones MD Primary hypertension (Primary Dx); Type 2 diabetes mellitus without complication, without long-term current use of insulin (CMS/HCC); Aneurysm of ascending aorta without rupture (CMS/HCC); Syncope, unspecified syncope type; Type 2 diabetes mellitus without complication, unspecified whether tank terminal gauger insulin use (CMS/HCC); Iron deficiency anemia, unspecified iron deficiency anemia type; Hypertension, unspecified type; Mixed hyperlipidemia 02/14/2024 Telephone [facility] [address] [place], [place] [address] Balaji Quinones MD 02/14/2024 Telephone [facility] [address] [place], [place] [address] Balaji Quinones MD Appointment Confirmation 02/14/2024 Travel 02/14/2024 Refill [facility] [address] [place], [place] [address] Balaji Quinones MD Mixed hyperlipidemia; Type 2 diabetes mellitus without complication, unspecified whether jail insulin use ([facility]); Iron deficiency anemia, unspecified iron deficiency anemia type; Hypertension, unspecified type 01/31/2024 Telephone [facility] [address] [place] [address] Balaji Quinones MD Chart Prep 01/28/2024 Telephone [facility] [address] [place], [place] [phone] Balaji Quinones MD Med Refill 01/25/2024 Refill [facility] [address] [place], [place] [phone] Balaji Quinones MD Folliculitis from Last 3 [...] Description 05/27/2024 1:00 PM EDT Office Visit [facility] [address] [place], [place] [phone] Kaci Meadows, OD [address] [place] [address] 06/26/2024 1:15 PM EDT Office Visit [facility] [address] [place] [address] Balaji Quinones MD [address] [place], [place] [phone] Health Maintenance Due Date Last Done Comments [...] EST Narrative 04/03/2024 12:34 PM EST ? [facility] ?[address] ?[place] [address] ? CT Scan Report ? Signed with Addenda ? Patient: Alonso,Paul ?MR#: [id number] ?? 32 ? : 1955 ?Acct:[id number] ? Age/Sex: 68 / M ?ADM Date: 02/20/25 ? Loc: HO.CT ? Attending Dr: Balaji Sanderson MD ? Ordering Physician: Balaji Sanderson MD ?? Date of Service: 04/03/24 ?? Procedure(s): CT angio chest aorta ?? Accession Number(s): [id number] ? cc: Balaji Sanderson MD ? Report Number: ?? [id number]: Total DLP = ??212.27 mGy-cm ?ADDENDUM ?? [...] DD/ 1233 ? TD/TT: 04/03/24 1233 ? Coal Briquette Machine Operator: ? Procedure Note Xenia Gilliam - 04/04/[address] [place] [address] [address] Scan Report Signed with Addenda Patient: Jayda Alonso#: [id number] 33 : 5Acct:[id number] Age/Sex: 68 / MADM Date: 04/03/24 Loc: HO.CT Attending Dr: Balaji Sanderson MD Ordering Physician: Balaji Sanderson MD Date of Service: 04/03/24 Procedure(s): CT angio chest aorta Accession Number(s): [id number] cc: Balaji Sanderson MD Report Number: [id number]: Total DLP = 212.27 mGy-cm ADDENDUM This [...] 04/03/24 1234 DD/ 1233 TD/TT: 04/03/24 1233 Coal Briquette Machine Operator: us Balaji Donnelly MD IMG CT PROCEDURES Jaspal tennille Result - Final * CT Head w/o Contrast (04/03/2024 10:11 AM EST) Anatomical Region Laterality Modality Head, Neck Computed Tomogra phy 04/03/2024 10:1 1 AM EST Narrative 04/03/2024 10:12 AM EST ? [place] [facility] ?[address] ?[place] [address] ? CT Scan Report ? Signed ? Patient: Alonso,Paul ?MR#: [id number] ?? 33 ? : 1955 ?Acct:[id number] ? Age/Sex: 68 / M ?ADM Date: 04/03/24 ? Loc: HO.CT ? Attending Dr: Balaji Sanderson MD ? Ordering Physician: Balaji Sanderson MD ?? Date of Service: 04/03/24 ?? Procedure(s): CT head/brain wo IV con ?? Accession Number(s): [id number] ? cc: Balaji Sanderson MD ? Report Number: ?? [id number]: Total DLP = ??672.66 mGy-cm ? CLINICAL HISTORY: syncope ? CT head without contrast ? Comparison: None ? Findings: ?? No intra-axial mass, midline shift, hydrocephalus, or acute hemorrhage. ?? Chln-ju-yhracevh age-related cerebral hemispheric white matter changes. ?? [...] DD/ 1011 ? TD/TT: 04/03/24 1011 ? Coal Briquette Machine Operator: ? Procedure Note Tawana, Image - 04/03/[address] [address] [address] Scan Report Signed Patient: Jayda Alonso#: [id number] 32 : 5Acct:[id number] Age/Sex: 68 / MADM Date: 04/03/24 Loc: HO.CT Attending Dr: Balaji Sanderson MD Ordering Physician: Balaji Sanderson MD Date of Service: 04/03/24 Procedure(s): CT head/brain wo IV con Accession Number(s): [id number] cc: Balaji Sanderson MD Report Number: [id number]: Total DLP = 672.66 mGy-cm CLINICAL HISTORY: syncope CT head without contrast Comparison: None Findings: No intra-axial mass, midline shift, hydrocephalus, or acute hemorrhage. Vxjw-dj-heoovqxa age-related cerebral hemispheric white matter changes. Small [...] 04/03/24 1012 DD/ 1011 TD/TT: 04/03/24 1011 Coal Bri[employer] Machine Operator: Balaji Donnelly MD IMG CT PROCEDURES Fin [...] Media Lot # [id number] Lot# Expiration Date [id number] Blood Capillary blood specimen / Unknown 02/14/2024 11:28 AM EST Balaji Donnelly MD POINT OF CARE TEST EN TER/EDIT ORDERABLES Final Result * (ABNORMAL) Lipid Panel with Reflex to Direct LDL (06/19/2023 1:23 PM EDT) Triglycerides 158(H) <150 mg/dL [facility] Comment:Desirable Triglyceri de: less than 150 mg/dLBorderline High Triglyceride 150-199 mg/dLHigh Triglyceride: 200-499 mg/dLVery High Triglyceride: greater than or equal to 5OO mg/dL Cholesterol 127 <200 mg/dL [facility] Comment:Desirable Cholestero l: less than 200 mg/dLBorderline High Cholesterol: 200-239 mg/dLHigh Cholesterol: greater than 239 mg/dL LDL Cholesterol Calculated 66 <100 mg/dL [facility] Comment:Desirable LDL: less than 100 mg/dLNear Optimal/Above Optimal LDL: 110- 129 mg/dLBorderline High LDL: 130-159 mg/dLHigh LDL: 160-189 mg/dLVery High LDL: greater than or equal to 190 mg/dL HDL Cholesterol 30(L) >40 mg/dL [facility] Comment:Desirable HDL: great er than 40 mg/dL Note: This HDL assay may give artificially low results in patients with liver disease. Blood 06/19/2023 1:23 PM EDT 06/19/2023 4:12 PM EDT us Balaji Donnelly MD LAB BLOOD ORDERABLES Final Result [facility] [address] [place] [phone] * Albumin, Random Urine W/Creatinine (06/19/2023 12:00 AM EDT) Creatinine, Urine 137.18 mg/dL [facility] Microalbumin Urine 21.0 mg/L [facility] Microalbum Creatinine Ratio Ur 15.3 <30 ug/mg cr [facility] Comment:Albumin/Creatinine R atio Reference Ranges: Normal: < 30 ug/mg creatinine Microalbuminuria: 30 - 300 ug/mg creatinineClinical Albuminuria: > 300 ug/mg creatinine Urine (Urine, Random) 06/19/2023 06/19/2023 Balaji Donnelly MD LAB URINE ORDERABLES Final Result Performing Organization Address City/[facility]/ZIP Co de Phone Number [facility] [address] [place] [phone] [phone] * Hepatitis C Antibody with Reflex to HCV, RNA, Quantitative, Real-Time PCR (07/05/2022 8:13 AM EDT) Hepatitis C Antibody NON-REACT MADDY NON-REACT MADDY [facility] [place] [facility] Index 0.04 <1.00 [facility] Comment: HCV antibody was non-reactive. There is no laboratory evidence of HCV infection. In most cases, no further action is required. However, if recent HCV exposure is suspected, a test for HCV RNA (test code 82168) is suggested. For additional information please refer to http://education.[employer]App/faq/QVA69l9 (This link is being provided for informational/ educational purposes only.) Blood Venous blood specimen / Unknown 07/05/2022 8:13 AM EDT 07/05/2022 8:14 AM EDT Narrative [facility] - 07/06/2022 11:54 AM EDT FASTING:YES FASTING: YES Balaji Donnelly MD LAB BLOOD ORDERABLES Final Result Performing Organization Address City/[facility]/ZIP Co de Phone Number [address], [place] [address] [facility] [address] [place] [address] * Colonoscopy (07/10/2017) Colonoscopy Normal Normal 07/10/2017 Shikha Morel - 07/10/2017 3:47 PM EDT Recommended 10 year follow up ( [facility] ) Historical Provider MD HEALTH MAINTENANCE Final Result from Last 3 Months or Most Recently Relevant to Health Maintenance Insurance [facility] MEDICARE [address] [place] [phone] Care Teams Medical Office Secretary Relationship Specialty Start Date End Date Balaji Quinones MD [address] [place] [address] PCP - General Internal Medicine 11/25/13 Kristi Giles, SarayD [address] [place] [address] Pharmacist Internal Medicine 01/30/22
--- OUTSIDE RECORDS SUMMARY | 2024-04-16 14:31 | XMS_ITS | Encounter Summary ---
Author Organization [employer] Address 75 [facility] 7t [place] [address] Care Team Providers Care Residential Instructor Name Role Phone Balaji Quinones MD Primary Care Provide r Kristi Giles PharmD Unavailable [phone] Reason for Visit * Reason Comments Med Refill Encounter Details Date Type Department Care Team (Late Contact Info) Description 01/30/2023 Refill [facility] [address] [place] [address] Balaji Quinones MD [address] [place] [address] Social History Tobacco Use Types Packs/Day Years [...] Description 05/27/2024 1:00 PM EDT Office Visit [facility] [address] [place] [address] Kaci Meadows, OD [address] [place] [address] 06/26/2024 1:15 PM EDT Office Visit [facility] [address] [place] [address] Balaji Quinones MD [address] [place] [address] documented as of this encounter Goals Goal [...] on filedocumented in this encounter Care Teams Residential Instructor Relationship Specialty Start Date End Date Balaji Quinones MD [address] [place] [address] PCP - General Internal Medicine 11/25/13 Kristi Giles PharmD [address] [place] [address] Pharmacist Internal Medicine 01/30/22 documented as of this encounter
--- OUTSIDE RECORDS SUMMARY | 2024-04-16 14:31 | XMS_ITS | Encounter Summary ---
Author Organization [employer] Address 75 [facility] 7t [place] [address] Care Team Providers Care Farm Appraiser Name Role Phone Balaji Quinones MD Primary Care Provide r Kristi Giles PharmD Unavailable [phone] Reason for Visit * Reason Onset Date Comments Med Refill 01/30/2023 Encounter Details Date Type Department Care Team ([facility] st Contact Info) Description 01/30/2023 Telephone [facility] [address] [place] [address] Balaji Quinones MD [address] [place] [address] Med Refill Social History Tobacco Use Types [...] 81 MG EC tablet Please sent to [facility] - [place], [place] - [address] [facility] Pt is due on holidays but is requesting if medication could be given before than. documented in this encounter Plan of Treatment Upcoming Encounters Date Type Department Care Team (Late st Contact Info) Description 05/27/2024 1:00 PM EDT Office Visit [facility] OPT[facility] [address] [place] [address] Kaci Meadows, OD [address] [place] [address] 06/26/2024 1:15 PM EDT Office Visit [facility] [address] [place] [address] Balaji Quinones MD [address] [place] [address] documented as of this encounter Goals Goal [...] on filedocumented in this encounter Care Teams Farm Appraiser Relationship Specialty Start Date End Date Balaji Quinones MD [address] [place] [address] PCP - General Internal Medicine 11/25/13 Kristi Giles, PharmD [address] [place] [address] Pharmacist Internal Medicine 01/30/22 documented as of this encounter
--- OUTSIDE RECORDS SUMMARY | 2024-04-16 14:31 | XMS_ITS | Encounter Summary ---
Author Organization [employer] Address 75 [facility] 7t [place] [address] Care Team Providers Care Cnc Machine Operator Name Role Phone Balaji Quinones MD Primary Care Provide r Kristi Giles PharmD Unavailable [phone] Reason for Visit * Reason Comments Med Refill Encounter Details Date Type Department Care Team (Late Contact Info) Description 12/30/2022 Refill [facility] [address] [place] [address] Balaji Quinones MD [address] [place] [address] Tinea pedis of both feet Social History [...] Office Visit [facility] [address] [place] [address] Kaci Meadows, OD [address] [place] [address] 06/26/2024 1:15 PM EDT Office Visit [facility] [address] [place] [address] Balaji Quinones MD [address] [place] [address] documented as of this encounter Goals Goal [...] feet documented in this encounter Care Teams Cnc Machine Operator Relationship Specialty Start Date End Date Balaji Quinones MD [address] [place] [address] PCP - General Internal Medicine 11/25/13 Kristi Giles PharmD [address] [place] [address] Pharmacist Internal Medicine 01/30/22 documented as of this encounter
--- OUTSIDE RECORDS SUMMARY | 2024-04-16 14:31 | XMS_ITS | Encounter Summary ---
Author Organization [employer] Address 75 [facility] 7t [place] [address] Care Team Providers Care Online Content Coordinator Name Role Phone Balaji Quinones MD Primary Care Provide r Kristi Giles PharmD Unavailable [phone] Reason for Visit * Reason Onset Date Comments Durable Medical Equipment 01/30/2023 Encounter Details Date Type Department Care Team (Late st Contact Info) Description 01/30/2023 Telephone [facility] [address] [place] [address] Balaji Quinones MD [address] [place] [address] Durable Medical Equipment Social History Tobacco Use [...] and taking falls. Please contact pt @ [phone] Latvian Speaker documented in this encounter Plan of Treatment Upcoming Encounters Date Type Department Care Team (Late st Contact Info) Description 05/27/2024 1:00 PM EDT Office Visit [facility] [address] [place] [address] Kaci Meadows, OD [address] [place] [address] 06/26/2024 1:15 PM EDT Office Visit [facility] [address] [place] [address] Balaji Quinones MD [address] [place] [address] documented as of this encounter Goals Goal [...] Pressure Hypertension 128/80(2024 11:18 AM EST) No Kritsi Giles PharmD Follow the DASH diet Diet No Kristi Giles PharmD Note: Look for foods that are low sodium. documented as of this encounter Visit Diagnoses Not on filedocumented in this encounter Care Teams Online Content Coordinator Relationship Specialty Start Date End Date Balaji Quinones MD [address] [place] [address] PCP - General Internal Medicine 11/25/13 Kristi Giles PharmD [address] [place] [address] Pharmacist Internal Medicine 01/30/22 documented as of this encounter
[2024-04-24 13:30] VITALS: BMI 22.7
--- NOTE | 2024-04-24 13:55 | P.CONAN_ITS ---
Documented by User: Gracie Bailey NP 04/24/24 13:59 HPI - Anesthesia Eval Consult details Narrative: 68yo M for Endoscopic Bronchial Ultrasound Follows [facility] Cardiology for aortic insufficiency, htn, AAA. Stable at 02/2024 office visit [facility] Active Problems Active Problems: All Active Problems Mediastinal mass (Acute) Elevated PSA (Acute) Anemia (Chronic) Lymphadenopathy, mediastinal (Acute) Past Medical History Medical History Lymphadenopathy, mediastinal Thoracic aortic aneurysm (TAA) Depression Hyperlipemia HTN (hypertension) Diabetes Anemia Family History Family History Sister Breast cancer Surgical History Surgical History Hx of prostate biopsy Hx of umbilical hernia repair H/O colonoscopy Social History Social History Household Members: None Housing: Apartment Are you a primary laboratory animal care veterinarian to a significant other at home: No Do you presently have visiting nurse or other home services: No Alcohol intake: former Patient Tobacco Use Status: Never used Tobacco service: No Current occupational status: disabled Meds Allergies Allergy/AdvReac Type Severity Reaction Status Date / Time No Known Allergies Allergy Verified 04/28/24 10:20 Home Medications ?Medication ?Instructions ?Recorded ?Confirmed ?Last Taken ?Type amlodipine 10 mg tablet 1 tab PO DAILY 01/26/20 04/24/24 Unknown History aspirin 81 mg tablet,delayed 1 tab PO DAILY 01/26/20 04/28/24 04/21/24 History release carvedilol 3.125 mg tablet 1 tab PO BID 01/26/20 04/24/24 Unknown History glipizide 10 mg tablet, extended 1 tab PO QAM 01/26/20 04/24/24 Unknown History release 24 hr hydrochlorothiazide 25 mg tablet 1 tab PO DAILY 01/26/20 04/24/24 Unknown History lisinopril 40 mg tablet 1 tab PO DAILY 01/26/20 04/24/24 Unknown History metformin 1,000 mg tablet 1 tab PO BID 01/26/20 04/24/24 Unknown History mineral oil-hydrophil petrolat 1 appl topical DIRECTED 01/26/20 04/24/24 Unknown History topical ointment (DermaPhor topical ointment) pantoprazole 40 mg tablet,delayed 1 tab PO DAILY 01/26/20 04/24/24 Unknown History release peg 160-[id number] 1 1 drp ophthalmic (eye) TID-QID 01/26/20 04/24/24 Unknown History %-0.2 %-0.2 % eye drops (Artificial Tears ([id number])) pioglitazone 45 mg tablet 1 tab PO DAILY 01/26/20 04/24/24 Unknown History pravastatin 80 mg tablet 1 tab PO DAILY 01/26/20 04/24/24 Unknown History sertraline 50 mg tablet 1 tab PO QAM 01/26/20 04/24/24 Unknown History trazodone 50 mg tablet 1 tab PO BEDTIME PRN insomnia 01/26/20 04/24/24 Unknown History ferrous sulfate 325 mg (65 mg 325 mg PO DAILY 04/24/24 04/24/24 Unknown History iron) tablet Exam Height,Weight and Vital Signs: Height 5 ft 3 in Weight 58.06 kg Pertinent Lab Results Pertinent Lab Results: Laboratory Tests 02/15/24 13:13 WBC 8.1 Hgb 14.2 Hct 40.7 L Plt Count 309 Sodium 132 L Potassium 3.0 L D Carbon Dioxide 33 H BUN 7 L Creatinine 0.80 Narrative Narrative: ECHO 02/2024 Conclusions: - The left ventricular systolic function is normal. The calculated ejection fraction is 66% by biplane method. - No obvious valvular pathology seen on this study. - There is mild dilatation of the ascending aorta measuring 4.20 cm. Documented by User: Anjali Alfredo MD 04/28/24 13:38 HPI - Anesthesia Eval Consult details Narrative: 68yo M for Endoscopic Bronchial Ultrasound Follows [facility] ?Cardiology for aortic insufficiency, htn, Stable at 02/2024 office visit.Mild dilatation of the ascending aorta measuring 4.20 cm. [facility] Past Medical History Medical History Lymphadenopathy, mediastinal Thoracic aortic aneurysm (TAA) Depression Hyperlipemia HTN (hypertension) Diabetes Anemia Family History Family History Sister Breast cancer Family history of problems with anesthesia: No Surgical History Surgical History Hx of prostate biopsy Hx of umbilical hernia repair H/O colonoscopy History of Problems with Anesthesia: No Social History Social History Household Members: None Housing: Apartment Are you a primary laboratory animal care veterinarian to a significant other at home: No Do you presently have visiting nurse or other home services: No Alcohol intake: former Patient Tobacco Use Status: Never used Tobacco service: No Current occupational status: disabled Meds Allergies Allergy/AdvReac Type Severity Reaction Status Date / Time No Known Allergies Allergy Verified 04/28/24 10:20 Home Medications ?Medication ?Instructions ?Recorded ?Confirmed ?Last Taken ?Type amlodipine 10 mg tablet 1 tab PO DAILY 01/26/20 04/24/24 Unknown History aspirin 81 mg tablet,delayed 1 tab PO DAILY 01/26/20 04/28/24 04/21/24 History release carvedilol 3.125 mg tablet 1 tab PO BID 01/26/20 04/24/24 Unknown History glipizide 10 mg tablet, extended 1 tab PO QAM 01/26/20 04/24/24 Unknown History release 24 hr hydrochlorothiazide 25 mg tablet 1 tab PO DAILY 01/26/20 04/24/24 Unknown History lisinopril 40 mg tablet 1 tab PO DAILY 01/26/20 04/24/24 Unknown History metformin 1,000 mg tablet 1 tab PO BID 01/26/20 04/24/24 Unknown History mineral oil-hydrophil petrolat 1 appl topical DIRECTED 01/26/20 04/24/24 Unknown History topical ointment (DermaPhor topical ointment) pantoprazole 40 mg tablet,delayed 1 tab PO DAILY 01/26/20 04/24/24 Unknown History release peg [id number]-isuwzgvr 1 1 drp ophthalmic (eye) TID-QID 01/26/20 04/24/24 Unknown History %-0.2 %-0.2 % eye drops (Artificial Tears ([id number])) pioglitazone 45 mg tablet 1 tab PO DAILY 01/26/20 04/24/24 Unknown History pravastatin 80 mg tablet 1 tab PO DAILY 01/26/20 04/24/24 Unknown History sertraline 50 mg tablet 1 tab PO QAM 01/26/20 04/24/24 Unknown History trazodone 50 mg tablet 1 tab PO BEDTIME PRN insomnia 01/26/20 04/24/24 Unknown History ferrous sulfate 325 mg (65 mg 325 mg PO DAILY 04/24/24 04/24/24 Unknown History iron) tablet Exam Height,Weight and Vital Signs: Height 5 ft 3 in Weight 58.06 kg Vital Signs Temp Pulse Resp BP Pulse Ox O2 Del Method 04/28/24 11:04 98.0 F 83 16 147/84 H 97 Room Air Pertinent Lab Results Pertinent Lab Results: Laboratory Tests 02/15/24 13:13 WBC 8.1 Hgb 14.2 Hct 40.7 L Plt Count 309 Sodium 132 L Potassium 3.0 L D Carbon Dioxide 33 H BUN 7 L Creatinine 0.80 Lab Results 04/28/24 04/28/24 Range/Units 10:28 10:43 Sodium 138 (135-145) mmol/L Potassium 2.9 L* (3.3-5.1) mmol/L Chloride 99 (96-108) mmol/L Carbon Dioxide 31 H (22-29) mmol/L Anion Gap 11 L (12-20) BUN 9 (9-16) mg/dL Creatinine 0.75 (0.5-1.4) mg/dL Estim Creat Clear Calc 71.7 Estimated GFR > 60 POC Glucose 166 H (60-115) mg/dL Random Glucose 158 H (60-115) mg/dL Calcium 9.2 D (8.4-10.2) mg/dL Airway Mallampati Class: II TM Dist: >3cm Neck ROM: Full Loose/Missing/Broken Teeth: Yes (Missing several teeth. Denies broken or loose teeth) Heart: RRR Lungs: CTAB Assessment and Plan Assessment Anesthesia Assessment: Anesthesia Plan Discussed and Chart Reviewed Final Anesthetic Review Family History of Problems with Anesthesia: No History of Problems with Anesthesia: No NPO: Yes ASA Class: III Final Preanesthetic Review: No Changes in Pt Med Stat, Meds/Allgs Chart Reviewed, Consent Obtained/Reviewed and Anes Risks/Benef Reviewed Patient Risk: Intermediate Procedure Risk: Intermediate Assessment/Block/Sedation in SS: Assess/Block/Sedation-SS Anesthetic Plan Anesthetic Plan: GA and Other (Hypokalemia 2.9 Will replenish) Disposition: Standard PACU
--- NOTE | 2024-04-28 | ECG_ITS ---
Test Reason : preop Blood Pressure : */* mmHG Vent. Rate : 88 BPM Atrial Rate : 88 BPM P-R Int : 190 ms QRS Dur : 110 ms QT Int : 408 ms P-R-T Axes : 34 -21 19 degrees QTcB Int : 493 ms Normal sinus rhythm Possible Left atrial enlargement Prolonged QT Abnormal ECG When compared with ECG of 26-Jan-2014 14:19, No significant change was found Referred By: Cherelle Key Electronically Signed By: Andriy Mcmullen
[2024-04-28 10:21] VITALS: BMI 21.3
[2024-04-28 10:33] LABS: Glucose, Whole Blood 166 mg/dL (60-115)
[2024-04-28 11:04] VITALS: BP 147/84; PULSE 83; RESP 16; TEMP 36.7; O2SAT 97
[2024-04-28] MEDS: Lactated Ringers 1,000 ML 100 ML IVCONT (11:10)
--- NOTE | 2024-04-28 11:13 | MHC.SHP ---
Pre-Procedural Eval Section A - 24 Hr Update-Section A only Date of Service: 04/28/24 The patient is an INPATIENT: No Changes since office visit: No Cold of Flu in the past 2 weeks, No New Medical Problems, No Changes in Medication and No Patient answered all questions Section B - Complete if H&P > 30 days Chief Complaint: Enlarged lymph nodes, unspecified Allergies: Allergies Allergy/AdvReac Type Severity Reaction Status Date / Time No Known Allergies Allergy Verified 04/28/24 10:20 Plan I have reviewed the history and physical and performed a pertinent physical examination on my patient. No changes have occurred unless specified. Time Spent With Patient Time: Total time managing care of this patient today ____ minutes.
[2024-04-28 11:16] LABS: Anion Gap 11 (12-20); Blood Urea Nitrogen 9 mg/dL (9-16); Calcium 9.2 mg/dL (8.4-10.2); Carbon Dioxide 31 mmol/L (22-29); Chloride 99 mmol/L (96-108); Creatinine Clr Calc Pharmacy 71.7; Estimated Glomerular Filt Rate > 60; Glucose Random 158 mg/dL (60-115); Potassium 2.9 mmol/L (3.3-5.1); Sodium 138 mmol/L (135-145)
[2024-04-28] MEDS: Potassium Chloride/H20 10 MEQ/100 ML PIGGYBACK 100 MEQ IV (11:54)
--- NOTE | 2024-04-28 14:21 | PM.OP ---
Brief Operative Note Date of Service: 04/28/24 Pre-op diagnosis: mediastinal lymphadenopathy Post-op diagnosis: other (mediastinal mass) Procedure: EBUS with TBNA 4R, bronchosocpy with washings Surgeon: Ki Castaneda MD Anesthesia: GLMA Was an Machine Shop Apprentice used for this Procedure?: No Estimated blood loss (mL): 0 Pathology: other (4R TBNA, washings) Condition: stable Disposition: same day
[2024-04-28 14:28] VITALS: BP 112/73; PULSE 84; RESP 18; TEMP 36.4; O2SAT 100
[2024-04-28 14:30] VITALS: BP 112/73; PULSE 79; RESP 18; O2SAT 98
[2024-04-28 14:35] VITALS: BP 112/73; PULSE 79; RESP 18; TEMP 36.4; O2SAT 98
[2024-04-28 14:40] VITALS: BP 111/68; PULSE 79; RESP 18; O2SAT 98
[2024-04-28 14:54] VITALS: BP 127/73; PULSE 80; RESP 18; TEMP 36.1; O2SAT 97
--- NOTE | 2024-04-29 01:55 | OP_ITS ---
DATE OF SERVICE: 04/28/2024 SURGEON: Ki Castaneda MD PREOPERATIVE DIAGNOSIS: Mediastinal lymphadenopathy. POSTOPERATIVE DIAGNOSIS: Mediastinal mass. PROCEDURE PERFORMED: Endobronchial ultrasound bronchoscopy with transbronchial needle aspirations of 4R and also bronchoscopy with washings. ESTIMATED BLOOD LOSS: COMPLICATIONS: ANESTHESIA: LMA. ASSISTANTS: None. SPECIMENS: DESCRIPTION OF PROCEDURE: After the patient was adequately sedated and LMA in place, the endobronchial ultrasound bronchoscopy (EBUS) was introduced into the LMA to the level of the larynx. The vocal cords were deep into the larynx, but well visualized. After administering lidocaine, the bronchoscope was then passed the vocal cords to the level of the trachea. Additional lidocaine was used at that point. Using the ultrasound guidance, we could appreciate that he did have a significant right paratracheal mass like density. No other lymphadenopathy appreciated. Using an 18-gauge needle, transbronchial needle aspirations were collected. Rapid on-site cytology was present demonstrating abnormal cells. Therefore, additional passes were done for a total of 6 passes and sent for cell block and cytology. Flow cytometry was not used based on the fact that they did not appear to be consistent with a blood dyscrasia. The endobronchial ultrasound bronchoscopy was then removed and replaced with a regular bronchoscopy. Using the regular bronchoscopy, it was inserted with LMA again to the level of the vocal cords. Vocal cords move symmetrically to the midline, passed the vocal cords to the level of the trachea. There were some secretions in the trachea. There was also some slight irritation at the areas where the aspirations were taken place, but no evidence of any active bleeding. The bronchoscope was navigated to the entire tracheobronchial tree that was extended up to the segmental level. The patient did have some evidence of bronchitis and inflammation of the airways, but no endobronchial lesions or masses noted. No evidence of any active bleeding noted. Bronchial washings were collected bilaterally, sent for cytology and also for culture. The bronchoscope was then removed. The total endoscopic time approximately 40 minutes. The patient tolerated the procedure well. Vital signs were stable throughout the procedure. No complications noted. MD AGATA Person/MODL / [id number]
== END 2024-04-28 15:26 | disposition home or self-care (01) ==
PROVIDERS: Anesthesiology; PCP Internal Medicine; Visit Provider Hospitalist
PROC: (CPT 31652; principal; 2024-04-28 11:30)
DX: R59.0 Localized enlarged lymph nodes (principal); J40 Bronchitis, not specified as acute or chronic
CPT/HCPCS: 31652; 31623; 36415; 80048; 82947; 88112; 88173; 88341; 88342; 88344; 93005; J0171; J2003; J2405; J2704; J3010; J3480

== ENCOUNTER → 2024-04-28 09:34 | Outpatient (BNV) | payer MEDICARE, MEDICAID, SELFPAY | PROVIDERS: PCP Internal Medicine; Visit Provider Hospitalist | DX: R59.0 Localized enlarged lymph nodes (principal) | CPT/HCPCS: 31652 ==

== ENCOUNTER → 2024-04-28 12:47 | Outpatient (BNV) | payer MEDICARE, MEDICAID, SELFPAY | PROVIDERS: PCP Internal Medicine; Visit Provider Internal Medicine Cardiovascular Disease | DX: R94.31 Abnormal electrocardiogram [ECG] [EKG] (principal); Z01.810 Encounter for preprocedural cardiovascular examination | CPT/HCPCS: 93010 ==

== ENCOUNTER 2024-05-05 09:19 | Outpatient (REF) | payer MEDICARE, MEDICAID, SELFPAY ==
[2024-05-05 12:11] LABS: Anion Gap 8 (12-20); Blood Urea Nitrogen 4 mg/dL (9-16); Calcium 8.6 mg/dL (8.4-10.2); Carbon Dioxide 30 mmol/L (22-29); Chloride 101 mmol/L (96-108); Estimated Glomerular Filt Rate > 60; Glucose Random 176 mg/dL (60-115); Potassium 4.4 mmol/L (3.3-5.1); Sodium 135 mmol/L (135-145)
[2024-05-05 12:35] LABS: PSA,Total (Free>4and<10) 49.69 ng/mL (0.00-4.00)
== END 2024-05-05 09:20 | disposition home or self-care (01) ==
LOC: HO.HHCL 09:19
PROVIDERS: Urology; Visit Provider Internal Medicine
DX: E87.6 Hypokalemia (principal); R97.20 Elevated prostate specific antigen [PSA]; Z12.5 Encounter for screening for malignant neoplasm of prostate
CPT/HCPCS: 36415; 80048; 84153

== ENCOUNTER 2024-05-07 13:51 | Outpatient (AMB) | payer MEDICARE, MEDICAID, SELFPAY ==
--- NOTE | 2024-05-07 14:51 | MHC.OFFVIS ---
Intake Visit Reasons: PSA follow up- sooner appt Intake Note: Patient is present for PSA F/U Urology Medication:FINASTERIDE,VITAMIN B12 Antibiotic Allergy:NONE Blood Thinner:ASPIRIN First Officer And Flight Instructor Required: No Allergies No Known Allergies Allergy (Verified 05/07/24 14:52) HPI Comments Details: Paul is a pleasant Mexican-speaking male. He is a patient of Dr. Grimes. He is seen for the following urologic conditions - elevated PSA Mexican translation provided by qualified vice president medical affairs PSA continues to be significantly elevated Recommend prostate MRI Follow-up in June Elevated PSA 07/05 12.5, 05/06 49 Repeat PSA 15.8 Prostate biopsy - 10/05 acute and chronic inflammation PFSH Medical History Lymphadenopathy, mediastinal Thoracic aortic aneurysm (TAA) Depression Hyperlipemia HTN (hypertension) Diabetes Anemia Surgical History Hx of prostate biopsy Hx of umbilical hernia repair H/O colonoscopy Family History Sister Breast cancer Social History Household Members: None Housing: Apartment Are you a primary direct care specialist to a significant other at home: No Do you presently have visiting nurse or other home services: No Alcohol intake: former Patient Tobacco Use Status: Never used Tobacco service: No Current occupational status: disabled Review of Systems Const Denies chills and Denies fever(s) Card Reports no additional complaints and Denies syncope Resp Denies cough GI Denies abdominal pain and Denies heartburn Reports as per HPI and Denies change in libido Neuro Denies syncope Psych Denies change in libido Endo Denies change in libido Physical Exam Const General: cooperative, healthy appearing, comfortable and no acute distress Orientation/consciousness: patient oriented x3 HEENT Face and sinus: Yes normal facial exam Mouth: moist mucous membranes Neck Neck: Yes normal visual inspection, Yes full ROM and Yes trachea midline Chest Chest palpation & inspection: normal inspection of the chest Resp Effort & Inspection: normal respiratory effort, able to speak in complete sentences and no respiratory distress GI Inspection: Yes normal to inspection Back/Spine/Pelvis Cervical Spine: normal cervical lordosis Thoracic/Lumbar Spine: thoracic and lumbar spine normal to inspection Skin General skin exam: no rashes or lesions noted Neuro General: patient oriented x3, gait normal, tone normal and moves all extremities Extrem General: Yes normal to inspection and Yes capillary refill normal Assessment & Plan Assessment & Plan (1) Elevated PSA: Code(s): R97.20 - Elevated prostate specific antigen [PSA] Category: Medical Plan Prostate MRI Follow-up in June Orders: Orders MR Prostate wo/w con Today R97.20 - Elevated prostate specific antigen [PSA] Patient Instructions: This note is constructed using voice recognition software. While every effort has been made to ensure accuracy veneer drier errors may have been included. Imaging studies, laboratory and physical exam results were discussed and reviewed in detail. No major barriers to patient understanding were identified. An opportunity to ask questions regarding the treatment plan was provided. All questions were answered. The patient expressed understanding and agreement with the above treatment plan. The patient is aware they should contact our office by phone for worsening of their current condition or the appearance of new urologic symptoms. Compliance is encouraged with any medications and followup testing that is ordered. It is a privilege to participate in the urologic care of your patient. If you have any questions or concerns regarding treatment for the above conditions, or other urologic issues, please do not hesitate to contact me. The office telephone contact is [phone]. Sincerely, Dr Lm Rico MD, [facility] - Urology Compassionate Specialist Care for the Genitourinary System Coding Level of Care Code Est Pt Level 4 (28354) Diagnoses Elevated PSA R97.20
--- OUTSIDE RECORDS SUMMARY | 2024-05-07 16:39 | XMS_ITS | Encounter Summary ---
Author Organization [employer] Address [address] [place] [address] Care Team Providers Care Linoleum Tile Layer Name Role Phone Balaji Quinones MD Primary Care Provide r Kristi Giles PharmD Unavailable [phone] Encounter Details Date Type Department Care Team (Late st Contact Info) Description 05/01/2024 Orders Only [facility] [address] [place] [address] Balaji Quinones MD [address] [place] [address] Hypokalemia (Primary Dx) Social History Tobacco Use Types [...] Care Team (Late st Contact Info) Description 05/15/2024 11:00 AM EDT Office Visit [facility] [address] [place] [address] Balaji Quinones MD [address] [place] [address] 05/27/2024 1:00 PM EDT Office Visit [facility] [address] [place] [address] Abdiel, Kaci, OD [address] [place] [address] documented as of this encounter Goals Goal [...] mellitus 6.6( 11:31 AM EST) No Kristi Giles, Quentin documented as of this encounter Procedures Procedure Name Priority Date/Time Associated Diagnosis Comments BASIC METABOLIC PANEL Routine 05/05/2024 9:25 AM EDT Hypokalemia documented in this encounter Results * (ABNORMAL) Basic Metabolic Panel (05/05/2024 9:25 AM EDT) Sodium 135 135 - 145 mmol/L [facility] Potassium 4.4 3.3 - 5.1 mmol/L [facility] Chloride 101 96 - 108 mmol/L [facility] Carbon Dioxide 30(H) 22 - 29 mmol/L [facility] Anion Gap 8(L) 12 - 20 [facility] Urea Nitrogen (BUN) 4(L) 9 - 16 mg/dL [facility] Creatinine, Serum 0.75 0.5 - 1.4 mg/dL [facility] Estimated Glomerular Filt Rate >60 [facility] Comment:Chronic Kidney Disea se: Estimated GFR < 60 mL/min/[id number] Kidney Disease: Estimated GFR < 15 mL/min/1.73m2 Glucose 176(H) 60 - 115 mg/dL [facility] Calcium 8.6 8.4 - 10.2 mg/dL [facility] Blood Venous blood specimen / Unknown 05/05/2024 9:25 AM EDT 05/05/2024 11:36 AM EDT us Balaji Donnelly MD LAB BLOOD ORDERABLES Final Result [facility] [address] [place] [address] [phone] documented in this encounter Visit Diagnoses Diagnosis Hypokalemia- Primary Hypopotassemia documented in this encounter Additional Health Concerns Assessment Noted Time PHQ-9 Depression Total Score: 1 04/19/19 24 1:30 PM EST documented as of this encounter Care Teams Linoleum Tile Layer Relationship Specialty Start Date End Date Balaji Quinones MD [address] [place] [address] PCP - General Internal Medicine 11/25/13 Kristi Giles PharmD [address] [place] [address] Pharmacist Internal Medicine 01/30/22 documented as of this encounter
--- OUTSIDE RECORDS SUMMARY | 2024-05-07 16:39 | XMS_ITS | Encounter Summary ---
Author Organization [employer] Address [address] [place] [address] Care Team Providers Care Historical Records Administrator Name Role Phone Balaji Quinones MD Primary Care Provide r Kristi Giles PharmD Unavailable [phone] Encounter Details Date Type Department Care Team (Late Contact Info) Description 09/08/2022 [facility] Health Information Management [address] [place] [address] Balaji Quinones MD [address] [place] [address] Social History Tobacco Use Types Packs/Day Years [...] Department Care Team (Late Contact Info) Description 05/15/2024 11:00 AM EDT Office Visit [facility] [address] [place] [address] Balaji Quinones MD [address] [place] [address] 05/27/2024 1:00 PM EDT Office Visit [facility] [address] [place], [place] [phone] Kaci Meadows, OD [address] [place] [address] documented as of this encounter Goals Goal [...] on filedocumented in this encounter Care Teams Historical Records Administrator Relationship Specialty Start Date End Date Balaji Quinones MD [address] [place] [phone] PCP - General Internal Medicine 11/25/13 Kristi Giles PharmD [address] [place] [phone] Pharmacist Internal Medicine 01/30/22 documented as of this encounter
--- OUTSIDE RECORDS SUMMARY | 2024-05-07 16:39 | XMS_ITS | Encounter Summary ---
Author Organization [employer] Address [address] [place] [address] Care Team Providers Care Gate Watch Name Role Phone Balaji Quinones MD Primary Care Provide r Kristi Giles PharmD Unavailable [phone] Encounter Details Date Type Department Care Team ([facility] Contact Info) Description 06/22/2022 Abstract [facility] [address] [place] [phone] Balaji Quinones MD [address] [place], [place] [phone] Social History Tobacco Use Types Packs/Day Years [...] Upcoming Encounters Date Type Department Care Team ([facility] Contact Info) Description 05/15/2024 11:00 AM EDT Office Visit [facility] [address] [place] [phone] Balaji Quinones MD [address] [place], [place] [phone] 05/27/2024 1:00 PM EDT Office Visit [facility] [address] [place] [address] Kaci Meadows, OD [address] [place] [address] documented as of this encounter Goals Goal [...] EDT Recommended 10 [place] ( [facility] [place] Historical Provider HEALTH MAINTENANCE Final Result documented in this encounter Visit Diagnoses Not on filedocumented in this encounter Care Teams Gate Watch Relationship Specialty Start Date End Date Balaji Quinones MD [address] [place] [address] PCP - General Internal Medicine 11/25/13 Kristi Giles PharmD [address] [place] [address] Pharmacist Internal Medicine 01/30/22 documented as of this encounter
--- OUTSIDE RECORDS SUMMARY | 2024-05-07 16:39 | XMS_ITS | Encounter Summary ---
Author Organization [employer] Address [address] [facility] [address] 7t [place] [address] Care Team Providers Care Human Service Technician Name Role Phone Balaji Quinones MD Primary Care Provide r Kristi Giles PharmD Unavailable [phone] Encounter Details Date Type Department Care Team (Late st Contact Info) Description 05/05/2024 Orders Only GENERIC EXTERNAL DATA DEPARTMENT Provider, Generic External Data Social History Tobacco Use Types Packs/Day Years [...] as of this encounter Miscellaneous Notes * Result Encounter Note - Balaji Donnelly MD - 05/05/2024 12:35 PM EDT Very elevated PSA, test done by outside provider. Please contact patient's Urologist to make sure they are aware of result. They might have been the ones that ordered, but it is impossible for me to know from [employer] documented in this encounter Plan of Treatment Upcoming Encounters Date Type Department Care Team (Late st Contact Info) Description 05/15/2024 11:00 AM EDT Office Visit [facility] MEDICINE [address] [place] [address] Balaji Quinones MD 230 [place] [address] 05/27/2024 1:00 PM EDT Office Visit [facility] OPTOMETRY [address] [place] [address] Abdiel, Kaci, OD 230 [place] [address] documented as of this encounter Goals Goal Patient Goal Type Associated Problems Recent Progress Patient-Stated? Author Blood Pressure < 140/90 Blood Pressure 128/80(2024 11:18 AM EST) No Kristi Giles, Quentin Note: Maintain BP less than 140/90 Record your blood pressure once per day Blood Pressure No Kristi Giles, Quentin Note: Check BP daily Blood Pressure < 140/90 Blood Pressure Hypertension 128/80(2024 11:18 AM EST) No Kristi Giles PharmD Follow the DASH diet Diet No Kristi Giles PharmD Note: Look for foods that are low sodium. Hemoglobin A1c < 7 Result Component Type 2 diabetes mellitus 6.6( 11:31 AM EST) No Kristi Giles PharmD documented as of this encounter Procedures Procedure Name Priority Date/Time Associated Diagnosis Comments PSA, TOTAL WITH REFLEX TO PSA, FREE Routine 05/05/2024 9:25 AM EDT documented in this encounter Results * (ABNORMAL) PSA, Total With Reflex to PSA, Free (05/05/2024 9:25 AM EDT) PSA,Total (Free>4and<10) 49.69(H ) 0.00 - 4.00 ng/mL [facility] Comment:A Free PSA was not p erformed: The percentage of Free PSA can be used to enhance the differentiation of prostate cancer from benign prostatic disease in subjects whose PSA levels are between 4.0 and 10.0 ng/mL. For subjects whose PSA levels are below 4.0 or above 10.0 ng/mL, the risk of prostate cancer is determined on the basis of the PSA alone. Therefore the % Free PSA is recommended only for those subjects whose PSA levels are between 4.0 and 10.0 ng/mL.PSA methodology: Wom[employer] Alinity i ChemiluminescentMicroparticle Immunoassay (CMIA) 05/05/2024 9:25 AM EDT 05/05/2024 11:36 AM EDT us Generic External Data Provider LAB BLOOD ORDERAB LES Final Result [facility] [address] [place] [phone] documented in this encounter Visit Diagnoses Not on filedocumented in this encounter Additional Health Concerns Assessment Noted Time PHQ-9 Depression Total Score: 1 04/19/19 24 1:30 PM EST documented as of this encounter Care Teams Human Service Technician Relationship Specialty Start Date End Date Balaji Quinones MD [address] [place] [address] PCP - General Internal Medicine 11/25/13 Kristi Giles PharmD 230 [place] [address] Pharmacist Internal Medicine 01/30/22 documented as of this encounter
--- OUTSIDE RECORDS SUMMARY | 2024-05-07 16:39 | XMS_ITS | Encounter Summary ---
Author Organization [employer] Address 75 [facility] 7t [place] [address] Care Team Providers Care College President Name Role Phone Balaji Quinones MD Primary Care Provide r Kristi Giles PharmD Unavailable [phone] Encounter Details Date Type Department Care Team (Late st Contact Info) Description 01/28/2022 Abstract [facility] [address] [place] [address] Kristi Giles, PharmD 230 [place] [address] Social History Tobacco Use Types Packs/Day Years [...] Description 05/15/2024 11:00 AM EDT Office Visit [facility] [address] [place] [address] Balaji Quinones MD 230 [place] [address] 05/27/2024 1:00 PM EDT Office Visit [facility] OPTOMETRY [address] [place] [address] Kaci Meadows, OD 230 [place] [address] documented as of this encounter Goals Goal [...] on filedocumented in this encounter Care Teams College President Relationship Specialty Start Date End Date Balaji Quinones MD 230 [place] [address] PCP - General Internal Medicine 11/25/13 Kristi Giles PharmD [address] [place] [address] Pharmacist Internal Medicine 01/30/22 documented as of this encounter
--- OUTSIDE RECORDS SUMMARY | 2024-05-07 16:39 | XMS_ITS | Encounter Summary ---
Author Organization [employer] Address 75 [facility] 7t [place] [address] Care Team Providers Care Numerologist Name Role Phone Balaji Quinones MD Primary Care Provide r Kristi Giles PharmD Unavailable [phone] Reason for Visit * Reason Onset Date Comments Chart Prep 05/01/2024 Encounter Details Date Type Department Care Team ([facility] st Contact Info) Description 05/01/[address] [facility] [address] [place] [address] Balaji Quinones MD [address] [place] [address] Chart Prep Social History Tobacco Use Types Packs/Day Years [...] encounter Miscellaneous Notes * Telephone Encounter - Faviola Salazar MA - 05/01/2024 10:29 AM EDT Chart Prep Labs: not applicable Images: done Vaccines due: Updated Referrals: Pulmonology Completed, Neurology Requested notes by Fax. Waiting for notes., and Cardiology Requested notes by Fax. Waiting for notes. Screenings: Foot Exam Overdue care gaps: Glucose, SDOH, and PHQ-9 Chart prep for upcoming appt with Dr.Esparza tan. LB documented in this encounter Plan of Treatment Upcoming Encounters Date Type Department Care Team (Late st Contact Info) Description 05/15/2024 11:00 AM EDT Office [address] [facility] [address] [place] [address] Balaji Quinones MD 230 [place] [address] 05/27/2024 1:00 PM EDT Office Visit [facility] OPTOMETRY [address] [place] [address] Kaci Meadows OD 230 [place] [address] documented as of this encounter Goals Goal [...] documented as of this encounter Care Teams Numerologist Relationship Specialty Start Date End Date Balaji Quinones MD [address] [place] [address] PCP - General Internal Medicine 11/25/13 Kristi Giles PharmD [address] [place] [address] Pharmacist Internal Medicine 01/30/22 documented as of this encounter
--- OUTSIDE RECORDS SUMMARY | 2024-05-07 16:39 | XMS_ITS | Encounter Summary ---
Author Organization [employer] Address 75 [facility] 7t [place] [address] Care Team Providers Care Caustic Preparer Name Role Phone Balaji Quinones MD Primary Care Provide r Kristi Giles PharmD Unavailable [phone] Reason for Visit * Reason Comments Med Refill Encounter Details Date Type Department Care Team (Late Contact Info) Description 05/11/2022 Refill [facility] 230 [place] [address] Balaji Quinones MD [address] [place], [place] [phone] Swelling of right middle finger Social History [...] Description 05/15/2024 11:00 AM EDT Office Visit [facility] MEDICINE [address] [place] [address] Balaji Quinones MD [address] [place], [place] [phone] 05/27/2024 1:00 PM EDT Office Visit [facility] OPTOMETRY [address] [place] [address] Kaci Meadows, OD 230 [place] [address] documented as of this encounter Goals Goal [...] finger documented in this encounter Care Teams Caustic Preparer Relationship Specialty Start Date End Date Balaji Quinones MD [address] [place] [address] PCP - General Internal Medicine 11/25/13 Kristi Giles PharmD 230 [place] [address] Pharmacist Internal Medicine 01/30/22 documented as of this encounter
--- OUTSIDE RECORDS SUMMARY | 2024-05-07 16:39 | XMS_ITS | Encounter Summary ---
Author Organization [employer] Address [address] [facility] [address] 7t [place] [address] Care Team Providers Care Lining Maker Hand Name Role Phone Balaji Quinones MD Primary Care Provide r Kristi Giles PharmD Unavailable [phone] Reason for Visit * Reason Comments Med Refill Encounter Details Date Type Department Care Team ([facility] st Contact Info) Description 06/25/2023 Refill [facility] 230 [place] [address] Balaji Quinones MD 230 [place] [address] Folliculitis Social History Tobacco Use Types Packs/Day [...] Description 05/15/2024 11:00 AM EDT Office Visit [facility] [address] [place] [address] Balaji Quinones MD 230 [place] [address] 05/27/2024 1:00 PM EDT Office Visit [facility] OPTOMETRY [address] [place] [address] Abdiel, Kaci, OD 230 [place] [address] documented as of this encounter Goals Goal [...] documented as of this encounter Care Teams Lining Maker Hand Relationship Specialty Start Date End Date Balaji Quinones MD 230 [place] [address] PCP - General Internal Medicine 11/25/13 Kristi Giles, Quentin 230 [place] [address] Pharmacist Internal Medicine 01/30/22 documented as of this encounter
--- OUTSIDE RECORDS SUMMARY | 2024-05-07 16:39 | XMS_ITS | Encounter Summary ---
Author Organization [employer] Address 75 [facility] 7t [place] [address] Care Team Providers Care Medical Insurance Biller Name Role Phone Balaji Quinones MD Primary Care Provide r Kristi Giles PharmD Unavailable [phone] Reason for Visit * Reason Comments Med Refill Encounter Details Date Type Department Care Team (Late st Contact Info) Description 09/17/2022 Refill [facility] [address] [place] [address] Balaji Quinones MD 230 [place] [address] Dry eyes Social History Tobacco Use Types [...] Description 05/15/2024 11:00 AM EDT Office Visit [facility] MEDICINE [address] [place] [address] Balaji Quinones MD 230 [place] [address] 05/27/2024 1:00 PM EDT Office Visit [facility] OPTOMETRY [address] [place] [address] Kaci Meadows, OD 230 [place] [address] documented as of this encounter Goals Goal [...] insufficiency documented in this encounter Care Teams Medical Insurance Biller Relationship Specialty Start Date End Date Balaji Quinones MD 230 [place] [address] PCP - General Internal Medicine 11/25/13 Kristi Giles PharmD 230 [place] [address] Pharmacist Internal Medicine 01/30/22 documented as of this encounter
--- OUTSIDE RECORDS SUMMARY | 2024-05-07 16:39 | XMS_ITS | Encounter Summary ---
Author Organization [employer] Address 75 [facility] 7t [place] [address] Care Team Providers Care Program Clinician Name Role Phone Balaji Quinones MD Primary Care Provide r Kristi Giles PharmD Unavailable [phone] Reason for Visit * Reason Comments Med Refill Encounter Details Date Type Department Care Team ([facility] st Contact Info) Description 04/20/2024 Refill [facility] MED[facility]INE 230 [place] [address] Balaji Quinones MD [address] [place] [address] Social History Tobacco Use Types Packs/Day Years [...] Description 05/15/2024 11:00 AM EDT Office Visit [facility] MEDICINE [address] [place] [address] Balaji Quinones MD [address] [place] [address] 05/27/2024 1:00 PM EDT Office Visit [facility] OPTOMETRY [address] [place] [address] Abdiel, Kaci, OD 230 [place] [address] documented as of this encounter Goals Goal [...] documented as of this encounter Care Teams Program Clinician Relationship Specialty Start Date End Date Balaji Quinones MD [address] [place] [address] PCP - General Internal Medicine 11/25/13 Kristi Gilse, PharmD [address] [place] [address] Pharmacist Internal Medicine 01/30/22 documented as of this encounter
--- OUTSIDE RECORDS SUMMARY | 2024-05-07 16:39 | XMS_ITS | Encounter Summary ---
Author Organization [employer] Address [address] [facility] [address] [place] [address] Care Team Providers Care Media Production Manager Name Role Phone Balaji Quinones MD Primary Care Provide r Kristi Giles PharmD Unavailable [phone] Reason for Visit * Reason Comments Med Refill Encounter Details Date Type Department Care Team ([facility] st Contact Info) Description 12/24/2023 Refill [facility] 230 [place] [address] Balaji Quinones MD [address] [place] [address] Folliculitis Social History Tobacco Use Types Packs/Day [...] Description 05/15/2024 11:00 AM EDT Office Visit [facility] [address] [place] [address] Balaji Quinones MD [address] [place] [address] 05/27/2024 1:00 PM EDT Office Visit [facility] OPTOMETRY [address] [place] [address] Kaci Meadows, OD [address] [place] [address] documented as of this encounter Goals Goal [...] documented as of this encounter Care Teams Media Production Manager Relationship Specialty Start Date End Date Balaji Quinones MD 230 [place] [address] PCP - General Internal Medicine 11/25/13 Kristi Giles, SarayD 230 [place] [address] Pharmacist Internal Medicine 01/30/22 documented as of this encounter
--- OUTSIDE RECORDS SUMMARY | 2024-05-07 16:39 | XMS_ITS | Encounter Summary ---
Author Organization [employer] Address 75 [facility] 7t [place] [address] Care Team Providers Care Hazardous Waste Technician Name Role Phone Balaji Quinones MD Primary Care Provide r Kristi Giles PharmD Unavailable [phone] Reason for Visit * Reason Comments Med Refill Encounter Details Date Type Department Care Team ([facility] st Contact Info) Description 05/04/2024 Telephone [facility]INE 230 [place] [address] Balaji Quinones MD [address] [place] [address] Med Refill Social History Tobacco Use Types [...] encounter Miscellaneous Notes * Telephone Encounter - Lilly Saldana RN - 05/07/2024 2:[address] Rico's certified medical asst, left detailed message asking for call back to confirm aware ofPSA level ordered by Dr Rico. * Telephone Encounter - Lilly Saldana RN - 05/06/2024 12:40 PM EDT Per [employer], PSA lab ordered by Dr Rico at [facility]. Called [facility], left detailed message on nurse line regarding below message and asked for call back, gave green team direct extension. Faxed copy of PSA result to Dr Rico asking for urology to follow up with patient, confirmation received. Will task to ensure receipt of message. * Telephone Encounter - Lilly Saldana RN - 05/06/2024 12:37 PM EDT ----- Message from Balaji Donnelly MD sent at 05/06/2024 10:48 AM EDT ----- Very elevated PSA, test done by outside provider. Please contact patient's Urologist to make sure they are aware of result. They might have been the ones that ordered, but it is impossible for me to know from [facility] * Telephone Encounter - Lilly Saldana RN - 05/06/2024 11:48 AM EDT ----- Message from Balaji Donnelly MD sent at 05/06/2024 10:48 AM EDT ----- Very elevated PSA, test done by outside provider. Please contact patient's Urologist to make sure they are aware of result. They might have been the ones that ordered, but it is impossible for me to know from [facility] documented in this encounter Plan of Treatment Upcoming Encounters Date Type Department Care Team (Late st Contact Info) Description 05/15/2024 11:00 AM EDT Office Visit [facility] [address] [place] [address] Balaji Quinones MD [address] [place] [address] 05/27/2024 1:00 PM EDT Office Visit [facility] OPTOMETRY [address] [place], [place] [phone] Kaci Meadows, OD 230 [place] [address] documented as of this encounter Goals Goal [...] 5 11:31 AM EST) No Kristi Giles, PharmIvan documented as of this encounter Visit Diagnoses Not on filedocumented in this encounter Additional Health Concerns Assessment Noted Time PHQ-9 Depression Total Score: 1 04/19/19 24 1:30 PM EST documented as of this encounter Care Teams Hazardous Waste Technician Relationship Specialty Start Date End Date Balaji Quinones MD [address] [place] [address] PCP - General Internal Medicine 11/25/13 Kristi Giles, Quentin 230 [place] [address] Pharmacist Internal Medicine 01/30/22 documented as of this encounter
--- OUTSIDE RECORDS SUMMARY | 2024-05-07 16:39 | XMS_ITS | Encounter Summary ---
Author Organization [employer] Address 75 [facility] 7t [place] [address] Care Team Providers Care Meat Service Team Member Name Role Phone Balaji Quinones MD Primary Care Provide r Kristi Giles PharmD Unavailable [phone] Reason for Visit * Reason Comments Pre-visit Planning Pre-visit planning - LVM Encounter Details Date Type Department Care Team ([facility] Contact Info) Description 05/06/2024 Patient Outreach [facility] MED[facility]INE [address] [place] [address] Balaji Quinones MD 230 [place] [address] Pre-visit Planning (Pre-visit planning - LVM ) Social History Tobacco Use Types Packs/Day Years [...] AM EDT documented as of this encounter Progress Notes * Kristin Raymond - 05/06/2024 9:21 AM EDT MIGNON Barriga placed outbound call to patient to complete pre-visit planning. No answer at this time. Patient name and were not confirmed. CC left voicemail requesting return call. Direct contact information provided. documented in this encounter Plan of Treatment Upcoming Encounters Date Type Department Care Team (Late st Contact Info) Description 05/15/2024 11:00 AM EDT Office Visit [facility] MEDICINE [address] [place] [address] Balaji Quinones MD [address] [place] [address] 05/27/2024 1:00 PM EDT Office Visit [facility] OPTOMETRY [address] [place] [address] Kaci Meadows, HANY 230 [place] [address] documented as of this encounter Goals Goal Patient Goal Type Associated Problems Recent Progress Patient-Stated? Author Blood Pressure < 140/90 Blood Pressure 128/80(2024 11:18 AM EST) No Kristi Giles, PharmD Note: Maintain BP less than 140/90 [...] as of this encounter Care Teams Meat Service Team Member Relationship Specialty Start Date End Date Balaji Quinones MD [address] [place] [address] PCP - General Internal Medicine 11/25/13 Kristi Giles PharmD [address] [place] [address] Pharmacist Internal Medicine 01/30/22 documented as of this encounter
--- OUTSIDE RECORDS SUMMARY | 2024-05-07 16:39 | XMS_ITS | Encounter Summary ---
Author Organization [employer] Address [address] [facility] [address] [place] [address] Care Team Providers Care Student Finance Advisor Name Role Phone Balaji Quinones MD Primary Care Provide r Kristi Giles PharmD Unavailable [phone] Reason for Visit * Reason Comments Med Refill Encounter Details Date Type Department Care Team (Late st Contact Info) Description 06/11/2023 Refill [facility] [address] [place] [address] Balaji Quinones MD [address] [place] [address] Swelling of right middle finger Social History [...] Office Visit [facility] MEDICINE [address] [place] [address] Balaji Quinones MD [address] [place] [address] 05/27/2024 1:00 PM EDT Office Visit [facility] OPTOMETRY [address] [place] [address] Kaci Meadows, OD 230 [place] [address] documented as of this encounter Goals Goal [...] documented as of this encounter Care Teams Student Finance Advisor Relationship Specialty Start Date End Date Balaji Quinones MD [address] [place] [address] PCP - General Internal Medicine 11/25/13 Kristi Giles, SarayD [address] [place] [address] Pharmacist Internal Medicine 01/30/22 documented as of this encounter
--- OUTSIDE RECORDS SUMMARY | 2024-05-07 16:39 | XMS_ITS | Encounter Summary ---
Author Organization [employer] Address 75 [facility] 7t [place] [address] Care Team Providers Care Karate Black Belt Name Role Phone Balaji Quinones MD Primary Care Provide r Kristi Giles PharmD Unavailable [phone] Reason for Visit * Reason Onset Date Comments Results 04/15/2024 Encounter Details Date Type Department Care Team ([facility] st Contact Info) Description 04/15/2024 Telephone [facility] MEDICINE [address] [place] [address] Balaji Quinones MD [address] [place] [address] Results Social History Tobacco Use Types Packs/Day [...] AM EST TC placed to pt with [facility] armhole raiser lockstitch #[id number] to inform of the pt CTA chest [...] call regarding prior message. Contact pt at [phone] * Telephone Encounter - Lilly Saldana RN - 04/15/2024 8:54 AM EST Telephone call x1 to pt to advise of results and referral, no answer, left voicemail to call back [facility]. Will task to call again. --Dr [...] Description 05/15/2024 11:00 AM EDT Office Visit [facility] MEDICINE [address] [place] [address] Balaji Quinones MD [address] [place] [address] 05/27/2024 1:00 PM EDT Office Visit [facility] OPTOMETRY [address] [place], [place] [phone] Kaci Meadows, OD 230 [place] [address] documented as of this encounter Goals Goal [...] documented as of this encounter Care Teams Karate Black Belt Relationship Specialty Start Date End Date Balaji Quinones MD [address] [place], [place] [phone] PCP - General Internal Medicine 11/25/13 Kristi Giles, SarayD [address] [place] [address] Pharmacist Internal Medicine 01/30/22 documented as of this encounter
--- OUTSIDE RECORDS SUMMARY | 2024-05-07 16:39 | XMS_ITS | Encounter Summary ---
Author Organization [employer] Address [address] [facility] [address] [place] [address] Care Team Providers Care Supervisor Metal Placing Name Role Phone Balaji Quinones MD Primary Care Provide r Kristi Giles PharmD Unavailable [phone] Reason for Visit * Reason Comments Med Refill Encounter Details Date Type Department Care Team ([facility] st Contact Info) Description 08/01/2023 Refill [facility]ALK[facility] 230 [place] [address] Vani Stallworth MD [address] [place] [address] Folliculitis Social History Tobacco Use Types Packs/Day [...] Description 05/15/2024 11:00 AM EDT Office Visit [facility] MEDICINE [address] [place] [address] Balaji Quinones MD [address] [place] [address] 05/27/2024 1:00 PM EDT Office Visit [facility] OPTOMETRY [address] [place] [address] Abdiel, Kaci, OD 230 [place] [address] documented as of this encounter Goals Goal Patient Goal Type Associated Problems Recent Progress Patient-Stated? Author Blood Pressure < 140/90 Blood Pressure 128/80(2024 11:18 AM EST) No Kristi Giles PharmD Note: Maintain BP less than 140/90 Record your blood pressure once per day Blood Pressure No Kristi Giles PharmIvan Note: Check BP daily Blood Pressure [...] documented as of this encounter Care Teams Supervisor Metal Placing Relationship Specialty Start Date End Date Balaji Quinones MD [address] [place] [address] PCP - General Internal Medicine 11/25/13 Kristi Giles, SarayD [address] [place] [address] Pharmacist Internal Medicine 01/30/22 documented as of this encounter
--- OUTSIDE RECORDS SUMMARY | 2024-05-07 16:39 | XMS_ITS | Encounter Summary ---
Author Organization [employer] Address 75 [facility] 7t [place] [address] Care Team Providers Care Wheelchair Driver Name Role Phone Balaji Quinones MD Primary Care Provide r Kristi Giles PharmD Unavailable [phone] Reason for Visit * Reason Comments Med Refill Encounter Details Date Type Department Care Team ([facility] st Contact Info) Description 04/16/2024 Refill [facility] MEDICINE 230 [place] [address] Balaji Quinones MD 230 [place] [address] Dermatitis of lower extremity Social History Tobacco [...] Office Visit [facility] MEDICINE [address] [place] [address] Balaji Quinones MD [address] [place] [address] 05/27/2024 1:00 PM EDT Office Visit [facility] OPTOMETRY [address] [place] [address] Kaci Meadows, OD 230 [place] [address] documented as of this encounter Goals Goal [...] documented as of this encounter Care Teams Wheelchair Driver Relationship Specialty Start Date End Date Balaji Quinones MD [address] [place] [address] PCP - General Internal Medicine 11/25/13 Kristi Giles, SarayD [address] [place] [address] Pharmacist Internal Medicine 01/30/22 documented as of this encounter
--- OUTSIDE RECORDS SUMMARY | 2024-05-07 16:39 | XMS_ITS | Encounter Summary ---
Author Organization [employer] Address [address] [facility] [address] 7t [place] [address] Care Team Providers Care Business Assistant Name Role Phone Balaji Quinones MD Primary Care Provide r Kristi Giles PharmD Unavailable [phone] Reason for Visit * Reason Comments Med Refill Encounter Details Date Type Department Care Team ([facility] st Contact Info) Description 04/19/2023 Refill [facility] MEDICINE 230 [place] [address] Balaji Quinones MD 230 [place] [address] Primary hypertension; Folliculitis Social History Tobacco Use [...] 11:00 AM EDT Office Visit [facility] MEDICINE 230 [place] [address] Balaji Quinones MD 230 [place] [address] 05/27/2024 1:00 PM EDT Office Visit [facility] OPTOMETRY [address] [place] [address] Abdiel, Kaci, OD 230 [place] [address] documented as of this encounter Goals Goal [...] as of this encounter Care Teams Business Assistant Relationship Specialty Start Date End Date Balaji Quinones MD 230 [place] [address] PCP - General Internal Medicine 11/25/13 Kristi Giles, SarayD 230 [place] [address] Pharmacist Internal Medicine 01/30/22 documented as of this encounter
--- OUTSIDE RECORDS SUMMARY | 2024-05-07 16:40 | XMS_ITS | Encounter Summary ---
Author Organization Robert Applebaum MD Address [address] [facility] [address] 7t [place] [address] Care Team Providers Care Corporate Law Assistant Name Role Phone Balaji Quinones MD Primary Care Provide r Kristi Giles PharmD Unavailable [phone] Reason for Visit * Reason Comments Med Refill Encounter Details Date Type Department Care Team ([facility] st Contact Info) Description 04/30/2024 Refill [facility] 230 [place] [address] Balaji Quinones MD 230 [place] [address] Tinea pedis of both feet Social History [...] Description 05/15/2024 11:00 AM EDT Office Visit [facility] MEDICINE 230 [place] [address] Balaji Quinones MD 230 [place] [address] 05/27/2024 1:00 PM EDT Office Visit [facility] OPTOMETRY [address] [place] [address] Kaci Meadows, OD 230 [place] [address] documented as of this encounter Goals Goal [...] documented as of this encounter Care Teams Corporate Law Assistant Relationship Specialty Start Date End Date Balaji Quinones MD 230 [place] [address] PCP - General Internal Medicine 11/25/13 Kristi Giles, Quentin [address] [place] [address] Pharmacist Internal Medicine 01/30/22 documented as of this encounter
--- OUTSIDE RECORDS SUMMARY | 2024-05-07 16:40 | XMS_ITS | Encounter Summary ---
Author Organization [employer] Address 75 [facility] 7t [place] [address] Care Team Providers Care Narcotics Detective Name Role Phone Balaji Quinones MD Primary Care Provide r Kristi Giles PharmD Unavailable [phone] Reason for Visit * Reason Comments Med Refill Encounter Details Date Type Department Care Team (Late Contact Info) Description 01/30/2023 Refill [facility] 230 [place] [address] Balaji Quinones MD 230 [place] [address] Social History Tobacco Use Types Packs/Day Years [...] Description 05/15/2024 11:00 AM EDT Office Visit [facility] MED[facility] [address] [place] [address] Balaji Quinones MD 230 [place] [address] 05/27/2024 1:00 PM EDT Office Visit [facility] OPTOMETRY [address] [place], [place] [phone] Kaci Meadows OD 230 [place] [address] documented as of this encounter Goals Goal [...] on filedocumented in this encounter Care Teams Narcotics Detective Relationship Specialty Start Date End Date Balaji Quinones MD 230 [place] [address] PCP - General Internal Medicine 11/25/13 Kristi Giles PharmD 230 [place] [address] Pharmacist Internal Medicine 01/30/22 documented as of this encounter
--- OUTSIDE RECORDS SUMMARY | 2024-05-07 16:40 | XMS_ITS | Encounter Summary ---
Author Organization [employer] Address 75 [facility] 7t [place] [address] Care Team Providers Care Laborer Name Role Phone Balaji Quinones MD Primary Care Provide r Kristi Giles PharmD Unavailable [phone] Reason for Visit * Reason Onset Date Comments Durable Medical Equipment 01/30/2023 Encounter Details Date Type Department Care Team (Late st Contact Info) Description 01/30/2023 Telephone [facility] MEDICINE [address] [place] [address] Balaji Quinones MD 230 [place] [address] Durable Medical Equipment Social History Tobacco Use [...] and taking falls. Please contact pt @ [phone] Niuean Speaker documented in this encounter Plan of Treatment Upcoming Encounters Date Type Department Care Team (Late st Contact Info) Description 05/15/2024 11:00 AM EDT Office Visit [facility] MEDICINE [address] [place] [address] Balaji Quinones MD 230 [place] [address] 05/27/2024 1:00 PM EDT Office Visit [facility] OPTOMETRY [address] [place] [address] Abdiel, Kaci, OD 230 [place] [address] documented as of this encounter Goals Goal [...] on filedocumented in this encounter Care Teams Laborer Relationship Specialty Start Date End Date Balaji Quinones MD 230 [place] [address] PCP - General Internal Medicine 11/25/13 Kristi Giles PharmD 230 [place] [address] Pharmacist Internal Medicine 01/30/22 documented as of this encounter
--- OUTSIDE RECORDS SUMMARY | 2024-05-07 16:40 | XMS_ITS | Encounter Summary ---
Author Organization [employer] Address 75 [facility] 7t [place] [address] Care Team Providers Care Table Games Manager Name Role Phone Baljai Quinones MD Primary Care Provide r Kristi Giles PharmD Unavailable [phone] Reason for Visit * Reason Comments Med Refill Encounter Details Date Type Department Care Team (Late st Contact Info) Description 03/01/2023 Refill [facility] MEDICINE 230 [place] [address] Balaji Quinones MD 230 [place], [place] [phone] Type 2 diabetes mellitus without complication, unspecified whether chcf insulin use ([facility]) Social History Tobacco Use Types Packs/Day Years [...] Description 05/15/2024 11:00 AM EDT Office Visit [facility] MEDICINE [address] [place] [address] Balaji Quinones MD 230 [place] [address] 05/27/2024 1:00 PM EDT Office Visit [facility] OPTOMETRY [address] [place] [address] Kaci Meadows, OD 230 [place] [address] documented as of this encounter Goals Goal [...] 2 diabetes mellitus without complication, unspecified whether chcf insulin use ([facility]) documented in this encounter Care Teams Table Games Manager Relationship Specialty Start Date End Date Balaji Quinones MD 230 [place] [address] PCP - General Internal Medicine 11/25/13 Kristi Giles PharmD 230 [place] [address] Pharmacist Internal Medicine 01/30/22 documented as of this encounter
--- OUTSIDE RECORDS SUMMARY | 2024-05-07 16:40 | XMS_ITS | Encounter Summary ---
Author Organization [employer] Address 75 [facility] 7t [place] [address] Care Team Providers Care Marine Cargo Specialist Name Role Phone Balaji Quinones MD Primary Care Provide r Kristi Giles PharmD Unavailable [phone] Reason for Visit * Reason Comments Med Refill Encounter Details Date Type Department Care Team (Late Contact Info) Description 04/17/2022 Refill [facility] MEDICINE [address] [place] [address] Brook Guerrero MD 230 [place], [place] [phone] Other chronic pain Social History Tobacco Use [...] 11:00 AM EDT Office Visit [facility] MEDICINE [address] [place] [address] Balaji Quinones MD 230 [place], [place] [phone] 05/27/2024 1:00 PM EDT Office Visit [facility] OPTOMETRY [address] [place] [address] Kaci Meadows, OD 230 [place] [address] documented as of this encounter Goals Goal [...] pain documented in this encounter Care Teams Marine Cargo Specialist Relationship Specialty Start Date End Date Balaji Quinones MD 230 [place] [address] PCP - General Internal Medicine 11/25/13 Kristi Giles PharmD 230 [place] [address] Pharmacist Internal Medicine 01/30/22 documented as of this encounter
--- OUTSIDE RECORDS SUMMARY | 2024-05-07 16:40 | XMS_ITS | Encounter Summary ---
Author Organization [employer] Address 75 [facility] 7t [place] [address] Care Team Providers Care Diagram Clerk Name Role Phone Balaji Quinones MD Primary Care Provide r Kristi Giles PharmD Unavailable [phone] Reason for Visit * Reason Onset Date Comments Appointment Request 05/01/2024 Encounter Details Date Type Department Care Team ([facility] st Contact Info) Description 05/01/2024 Telephone [facility] MEDICINE 230 [place] [address] Raquel Kirk RN 230 [place] [address] Appointment Request Social History Tobacco Use Types Packs/Day Years [...] encounter Miscellaneous Notes * Telephone Encounter - Raquel Kirk RN - 05/02/2024 11:48 AM EDT Telephone call placed to pt. Informed lab orders placed. Can come to the lab anytime at his convenience. Pt verbalized understanding and denied having any further questions or concerns at this time. * Telephone Encounter - Raquel Kirk RN - 05/01/2024 9:42 AM EDT Reviewed [employer] A Partager. Pt did not have potassium recheck. He was given Potassium 10mg IV prior to his surgery. Scanned in those orders under Media tab DOS 04/28/24. Telephone call placed to pt utilizing [employer] #[id number]. Pt confirmed that they did not do more blood workafter his procedure. He is very concerned regarding his potassium. Had many questions. Went over S/Sx of hypo and hyperkalemia. Pt denied having any Sx. Went over dietary sources of potassium. Pt states is confused how his potassium is low as he eats many foods high in potassium. Briefly discussed how certain medications and certain health conditions can effect lab values. Pt was scheduled to seePCP in June. Moved appt up to 05/15/24 with PCP. Notified AUNDREA Salmeron. Pt agreeable. Informed I would askPCP to order lab to recheck potassium. Will call once ordered. Pt agreeable. Pt wondering about results from procedure. Informed that they are not available yet. [facility] so usually takes >1 week for cytology results to come back. Once it is back, their office should call him. Pt verbalized understanding and denied having any further questions or concerns at this time. * Telephone Encounter - Raquel Kirk RN - 05/01/2024 9:38 AM EDT ----- Message from Balaji Donnelly MD sent at 05/01/2024 9:20 AM EDT ----- Patient had a critical lab 04/28/2024 K 2.9 done at [facility]. Please see if [facility]. It appears this was done during a procedure. Also make sure he has a follow up appointment with me within a month if he does not have one documented in this encounter Plan of Treatment Upcoming Encounters Date Type Department Care Team (Late st Contact Info) Description 05/15/2024 11:00 AM EDT Office Visit [facility] MEDICINE 230 [place] [address] Balaji Quinones MD 230 [place] [address] 05/27/2024 1:00 PM EDT Office Visit [facility] OPTOMETRY [address] [place] [address] Kaci Meadows, OD 230 [place] [address] documented as of this encounter Goals Goal [...] documented as of this encounter Care Teams Diagram Clerk Relationship Specialty Start Date End Date Balaji Quinones MD [address] [place] [address] PCP - General Internal Medicine 11/25/13 Kristi Giles PharmD [address] [place] [address] Pharmacist Internal Medicine 01/30/22 documented as of this encounter
--- OUTSIDE RECORDS SUMMARY | 2024-05-07 16:40 | XMS_ITS | Encounter Summary ---
Author Organization [employer] Address 75 [facility] 7t [place] [address] Care Team Providers Care Welcome Center Attendant Name Role Phone Balaji Quinones MD Primary Care Provide r Kristi Giles PharmD Unavailable [phone] Reason for Visit * Reason Comments Med Refill Encounter Details Date Type Department Care Team (Late Contact Info) Description 01/30/2023 Refill [facility] 230 [place] [address] Balaji Quinones MD 230 [place] [address] Social History Tobacco Use Types Packs/Day Years [...] Description 05/15/2024 11:00 AM EDT Office Visit [facility] MEDICINE 230 [place] [address] Balaji Quinones MD 230 [place] [address] 05/27/2024 1:00 PM EDT Office Visit [facility] OPTOMETRY [address] [place], [place] [phone] Kcai Meadows OD 230 [place] [address] documented as of this encounter Goals Goal [...] on filedocumented in this encounter Care Teams Welcome Center Attendant Relationship Specialty Start Date End Date Balaji Quinones MD 230 [place] [address] PCP - General Internal Medicine 11/25/13 Kristi Giles PharmD [address] [place] [address] Pharmacist Internal Medicine 01/30/22 documented as of this encounter
--- OUTSIDE RECORDS SUMMARY | 2024-05-07 16:40 | XMS_ITS | Encounter Summary ---
Author Organization [employer] Address 75 [facility] 7t [place] [address] Care Team Providers Care Appointment Clerk Name Role Phone Balaji Quinones MD Primary Care Provide r Kristi Giles PharmD Unavailable [phone] Reason for Visit * Reason Onset Date Comments Med Refill 01/30/2023 Encounter Details Date Type Department Care Team ([facility] st Contact Info) Description 01/30/2023 Telephone [facility] MEDICINE 230 [place] [address] Balaji Quinones MD 230 [place] [address] Med Refill Social History Tobacco Use Types [...] 81 MG EC tablet Please sent to [facility] [place] [place] - [address] [facility] Pt is due on holidays but is requesting if medication could be given before than. documented in this encounter Plan of Treatment Upcoming Encounters Date Type Department Care Team (Late st Contact Info) Description 05/15/2024 11:00 AM EDT Office Visit [facility] MEDICINE [address] [place] [address] Balaji Quinones MD 230 [place] [address] 05/27/2024 1:00 PM EDT Office Visit [facility] OPTOMETRY [address] [place] [address] Abdiel, Kaci, OD 230 [place] [address] documented as of this encounter Goals Goal [...] on filedocumented in this encounter Care Teams Appointment Clerk Relationship Specialty Start Date End Date Balaji Quinones MD [address] [place] [address] PCP - General Internal Medicine 11/25/13 Kristi Giles, PharmD [address] [place] [address] Pharmacist Internal Medicine 01/30/22 documented as of this encounter
--- OUTSIDE RECORDS SUMMARY | 2024-05-07 16:40 | XMS_ITS | Encounter Summary ---
Author Organization [employer] Address 75 [facility] 7t [place] [address] Care Team Providers Care Supply Tech Name Role Phone Balaji Quinones MD Primary Care Provide r Kristi Giles PharmD Unavailable [phone] Reason for Visit * Reason Comments Med Refill Encounter Details Date Type Department Care Team (Late st Contact Info) Description 03/08/2023 Refill [facility] 230 [place] [address] Balaji Quinones MD [address] [place] [address] Folliculitis Social History Tobacco Use Types Packs/Day [...] Description 05/15/2024 11:00 AM EDT Office Visit [facility] MEDICINE 230 [place] [address] Balaji Quinones MD [address] [place] [address] 05/27/2024 1:00 PM EDT Office Visit [facility] OPTOMETRY [address] [place] [address] Kaci Meadows, OD [address] [place] [address] documented as of this encounter Goals Goal [...] follicles documented in this encounter Care Teams Supply Tech Relationship Specialty Start Date End Date Balaji Quinones MD 230 [place] [address] PCP - General Internal Medicine 11/25/13 Kristi Giles PharmD [address] [place] [address] Pharmacist Internal Medicine 01/30/22 documented as of this encounter
--- OUTSIDE RECORDS SUMMARY | 2024-05-07 16:40 | XMS_ITS | Encounter Summary ---
Author Organization [employer] Address 75 [facility] 7t [place] [address] Care Team Providers Care Pediatric Ophthalmologist Name Role Phone Balaji Quinones MD Primary Care Provide r Kristi Giles PharmD Unavailable [phone] Reason for Visit * Reason Comments Med Refill Encounter Details Date Type Department Care Team (Late st Contact Info) Description 10/27/2022 Refill [facility] MEDICINE [address] [place] [address] Balaji Quinones MD [address] [place] [address] Dermatitis of lower extremity Social History Tobacco [...] Description 05/15/2024 11:00 AM EDT Office Visit [facility] MEDICINE [address] [place] [address] Balaji Quinones MD [address] [place] [address] 05/27/2024 1:00 PM EDT Office Visit [facility] OPTOMETRY [address] [place] [address] Kaci Meadows, OD 230 [place] [address] documented as of this encounter Goals Goal [...] extremity documented in this encounter Care Teams Pediatric Ophthalmologist Relationship Specialty Start Date End Date Balaji Quinones MD [address] [place] [address] PCP - General Internal Medicine 11/25/13 Kristi Giles PharmD [address] [place] [address] Pharmacist Internal Medicine 01/30/22 documented as of this encounter
--- OUTSIDE RECORDS SUMMARY | 2024-05-07 16:40 | XMS_ITS | Encounter Summary ---
Author Organization [employer] Address 75 [facility] 7t [place] [address] Care Team Providers Care Sourcing Associate Name Role Phone Balaji Quinones MD Primary Care Provide r Kristi Giles PharmD Unavailable [phone] Reason for Visit * Reason Comments Med Refill Encounter Details Date Type Department Care Team (Late st Contact Info) Description 10/27/2022 Refill [facility] 230 [place] [address] Clau Pascual ANP [address] [place] [address] Tinea pedis of both feet Social History [...] 05/15/2024 11:00 AM EDT Office Visit [facility] MEDICINE [address] [place] [address] Balaji Quinones MD 230 [place] [address] 05/27/2024 1:00 PM EDT Office Visit [facility] OPTOMETRY [address] [place] [address] Kaci Meadows, OD 230 [place] [address] documented as of this encounter Goals Goal [...] feet documented in this encounter Care Teams Sourcing Associate Relationship Specialty Start Date End Date Balaji Quinones MD [address] [place] [address] PCP - General Internal Medicine 11/25/13 Kristi Giles PharmD [address] [place] [address] Pharmacist Internal Medicine 01/30/22 documented as of this encounter
--- OUTSIDE RECORDS SUMMARY | 2024-05-07 16:40 | XMS_ITS | Encounter Summary ---
Author Organization [employer] Address 75 [facility] 7t [place] [address] Care Team Providers Care Cabin Equipment Supervisor Name Role Phone Balaji Quinones MD Primary Care Provide r Kristi Giles PharmD Unavailable [phone] Reason for Visit * Reason Comments Med Refill Encounter Details Date Type Department Care Team (Late Contact Info) Description 01/28/2023 Refill [facility] [address] [place] [address] Balaji Quinones MD [address] [place] [address] Social History Tobacco Use Types Packs/Day Years [...] 11:00 AM EDT Office Visit [facility] MED[facility]INE [address] [place] [address] Balaji Quinones MD 230 [place] [address] 05/27/2024 1:00 PM EDT Office Visit [facility] OPTOMETRY [address] [place] [address] Abdiel, Kaci, OD 230 [place] [address] documented as of this encounter Goals Goal [...] on filedocumented in this encounter Care Teams Cabin Equipment Supervisor Relationship Specialty Start Date End Date Balaji Quinones MD [address] [place] [address] PCP - General Internal Medicine 11/25/13 Kristi Giles PharmD [address] [place] [address] Pharmacist Internal Medicine 01/30/22 documented as of this encounter
--- OUTSIDE RECORDS SUMMARY | 2024-05-07 16:40 | XMS_ITS | Encounter Summary ---
Author Organization [employer] Address 75 [facility] 7t [place] [address] Care Team Providers Care Sow Farm Manager Name Role Phone Balaji Quinones MD Primary Care Provide r Kristi Giles PharmD Unavailable [phone] Reason for Visit * Reason Comments Med Refill Encounter Details Date Type Department Care Team (Late st Contact Info) Description 12/30/2022 Refill [facility] [address] [place] [address] Balaji Quinones MD 230 [place] [address] Tinea pedis of both feet Social History [...] 11:00 AM EDT Office Visit [facility] MEDICINE [address] [place] [address] Balaji Quinones MD 230 [place] [address] 05/27/2024 1:00 PM EDT Office Visit [facility] OPTOMETRY [address] [place] [address] Kaci Meadows, OD [address] [place] [address] documented as of this encounter Goals Goal [...] feet documented in this encounter Care Teams Sow Farm Manager Relationship Specialty Start Date End Date Balaji Quinones MD 230 [place] [address] PCP - General Internal Medicine 11/25/13 Kristi Giles PharmD 230 [place] [address] Pharmacist Internal Medicine 01/30/22 documented as of this encounter
--- OUTSIDE RECORDS SUMMARY | 2024-05-07 16:40 | XMS_ITS | Encounter Summary ---
Author Organization [employer] Address [address] [place] [address] Care Team Providers Care Economic Historian Name Role Phone Balaji Quinones MD Primary Care Provide r Kristi Giles PharmD Unavailable [phone] Encounter Details Date Type Department Care Team (Late st Contact Info) Description 04/28/2024 Orders Only GENERIC EXTERNAL DATA DEPARTMENT Provider, [...] Encounter Note - Balaji Donnelly MD - 04/28/2024 10:34 AM EDT Patient had a critical lab 04/28/2024 K 2.9 [place] [facility] [place] [facility] see if he had a repeat in [employer]. It appears this was done during a procedure. Also make sure he has a follow up appointment with me within a month if he does not have one documented in this encounter Plan of Treatment Upcoming Encounters Date Type Department Care Team (Late st Contact Info) Description 05/15/2024 11:00 AM EDT Office Visit [facility] [address] [place] [address] Balaji Quinones MD [address] [place] [address] 05/27/2024 1:00 PM EDT Office Visit [facility] [address] [place] [address] Abdiel, Kaci, OD [address] [place] [address] documented as of this encounter Goals Goal [...] Procedure Name Priority Date/Time Associated Diagnosis Comments GRAM STAIN Routine 04/28/2024 2:20 PM EDT BASIC METABOLIC PANEL Routine 04/28/2024 10:43 AM EDT GLUCOSE, WHOLE BLOOD Routine 04/28/2024 10:28 AM EDT documented in this encounter Results * Gram stain (04/28/2024 2:20 PM EDT) 04/28/2024 2:20 PM EDT 04/29/2024 8:42 AM EDT Comment:[facility] Wash Narrative [facility] - 04/29/2024 8:50 AM EDT Test not performed Routine Culture Test not performed Unable to perform culture due to laboratory error. Sample already processed by the pathology department. Specimen Source: Bronchial Washings us Generic External Data Provider LAB MICROBIOLOGY - GENERAL ORDERABLES Final Result [facility] [address] [place] [phone] * (ABNORMAL) Basic Metabolic Panel (04/28/2024 10:43 AM EDT) Sodium 138 135 - 145 mmol/L [facility] Potassium 2.9(LL) 3.3 - 5.1 mmol/L [facility] Comment:Critical value for P OTS: Results called to and read reynoldy: SANJU Person calling: REYNALDO Date: 04/28/24 Time: 1115 Chloride 99 96 - 108 mmol/L [facility] Carbon Dioxide 31(H) 22 - 29 mmol/L [facility] Anion Gap 11(L) 12 - 20 [facility] Urea Nitrogen (BUN) 9 9 - 16 mg/dL [facility] Creatinine, Serum 0.75 0.5 - 1.4 mg/dL [facility] Creatinine Clr Calc Pharmacy 71.7 [facility] Comment:eGFR (calculated fro m the MDRD study equation) and eCrCl(calculated from the Cockcroft-Gault equation) are based ondifferent parameters and may not yield comparable results.If eCrCl result is absurd, please check patient'sheight/weight. Estimated Glomerular Filt Rate >60 [facility] Comment:Chronic Kidney Disea se: Estimated GFR < 60 mL/min/1.15n8Bpjepw Kidney Disease: Estimated GFR < 15 mL/min/1.73m2 Glucose 158(H) 60 - 115 mg/dL [facility] Calcium 9.2 8.4 - 10.2 mg/dL [facility] 04/28/2024 10:4 3 AM EDT 04/28/2024 10:46 AM EDT us Generic External Data Provider LAB BLOOD ORDERAB LES Final Result Performing Organization Address City/[facility]/ZIP Co de Phone Number [facility] [address] [place] [phone] * (ABNORMAL) Glucose, Whole Blood (04/28/2024 10:28 AM EDT) Glucose, Whole Blood 166(H) 60 - 115 mg/dL [facility] Comment:METER #: [id number] 04/28/2024 10:2 8 AM EDT 04/28/2024 10:33 AM EDT us Generic External Data Provider LAB BLOOD ORDERAB LES Final Result Performing Organization Address City/[facility]/ZIP Co de Phone Number [facility] [address] [place] [phone] documented in this encounter Visit Diagnoses Not on filedocumented in this encounter Additional Health Concerns Assessment Noted Time PHQ-9 Depression Total Score: 1 04/19/19 24 1:30 PM EST documented as of this encounter Care Teams Economic Historian Relationship Specialty Start Date End Date Balaji Quinones MD [address] [place] [address] PCP - General Internal Medicine 11/25/13 Kristi Giles PharmD [address] [place] [address] Pharmacist Internal Medicine 01/30/22 documented as of this encounter
--- OUTSIDE RECORDS SUMMARY | 2024-05-07 16:40 | XMS_ITS | Encounter Summary ---
Author Organization [employer] Address [address] [place] [address] Care Team Providers Care Tax Associate Attorney Name Role Phone Balaji Quinones MD Primary Care Provide r Kristi Giles PharmD Unavailable [phone] Reason for Referral * Consultation (Urgent) - Closed Specialty Diagnoses / Procedures Referred By Yaya aponte Referred To Contact Pulmonary Disease Diagnoses Mass in neck Balaji Quinones MD [address] [place] [address] Phone: tel: fax: Ki Castaneda [address] [place] [phone] Phone: tel: Referral ID Status Reason Start Date Expiration Date V isits Requested Visits Authorized [id number] Closed Specialty Services Required 04/14/2024 04/14/2025 1 1 Encounter Details Date Type Department Care Team (Late st Contact Info) Description 04/14/2024 Orders Only [facility] [address] [place] [address] Balaji Quinones MD [address] [place] [address] Mass in neck (Primary Dx) Social History [...] Description 05/15/2024 11:00 AM EDT Office Visit [facility] [address] [place] [address] Balaji Quinones MD [address] [place] [address] 05/27/2024 1:00 PM EDT Office Visit [facility] OPTOMETRY [address] [place] [address] Kaci Meadows, HANY [address] [place] [address] Scheduled Referrals Name Type Priority Associated Diagnoses [...] Procedure Name Priority Date/Time Associated Diagnosis Comments MR BRAIN W AND WO CONTRAST Routine 04/23/2024 10:50 AM EDT documented in this encounter Results * Mr Brain w/ and w/o Contrast (04/23/2024 10:50 AM EDT) Anatomical Region Laterality Modality Brain Magnetic Resonan ce 04/23/2024 10:5 0 AM EDT Narrative 04/23/2024 12:50 PM EDT ? [facility] ?[address] ?[place] [address] ? Magnetic Resonance Report ? Signed ? Patient: Alonso,Paul ?MR#: [id number] ?? 32 ? : 1955 ?Acct:[id number] ? Age/Sex: 68 / M ?ADM Date: 03/12/25 ? Loc: HO.MRI ? Attending Dr: Jessica Palacios MD ? Ordering Physician: Jessica Palacios MD ?? Date of Service: 04/23/24 ?? Procedure(s): MR head/brain wo/w con ?? Accession Number(s): [id number] ? cc: Balaji Sanderson MD; Jessica Palacios MD ? EXAMINATION: ?? MR BRAIN WITHOUT AND WITH CONTRAST ? CLINICAL INFORMATION: ?? Syncope. Collapse. ? COMPARISON: ?? No prior MRI brain. ?? Correlated to CT dated April 03, 2024 demonstrated no acute ?? intracranial findings. ? TECHNIQUE: ?? Multiplanar, multisequence MRI of the brain was obtained before and ?? after the intravenous administration of 5 mL (Gadavist) without ?? reported immediate complications. ? FINDINGS: ?? Patient's motion artifact. ?? No restricted diffusion. ?? No acute intracranial hemorrhage, mass effect, midline shift, ?? hydrocephalus or herniation. ?? Bilateral, multifocal, patchy hyperintense T2 FLAIR signal within the ?? fawn and deep periventricular white matter and subcortical white matter ?? of the centrum semiovale and shankar radiata both cerebral hemispheres. ?? 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 white matter. ?? Flow-void signal within the main vessels is normal. ?? Sellar/suprasellar region is normal. ?? Craniocervical junction is intact and normal. ?? No abnormal enhancement within the intra-axial or the extra-axial ?? compartment of the cranium. ? MR/MR head/brain wo/w con ?? IMPRESSION: ?? No acute brain abnormality. ?? No gross abnormal enhancing lesion. ?? White matter disease likely related to small vessel occlusive disease ?? versus demyelinating process. ? Electronically signed by: ??Austin Tejeda MD ??04/23/2024 12:47 PM ?? EDT ? Dictated By: ?Austin Castañeda MD ? Signed By: ?<Electronically signed by Austin Kirk MD in OV> ? 04/23/24 1247 ? DD/ 1050 ? TD/TT: 04/23/24 1115 ? Pulp Drier Firer: ? Procedure Note Xenia Gilliam - 04/23/2024 [id number] [place] [address] Magnetic Resonance Report Signed Patient: Leonela AlonsoReji#: [id number] 32 : 5Acct:[id number] Age/Sex: 68 / MADM Date: 04/23/24 Loc: HO.MRI Attending Dr: Jessica Palacios MD Ordering Physician: Jessica Palacios MD Date of Service: 04/23/24 Procedure(s): MR head/brain wo/w con Accession Number(s): [id number] cc: Balaji Sanderson MD; Jessica Palacios MD EXAMINATION: MR BRAIN WITHOUT AND WITH CONTRAST CLINICAL INFORMATION: Syncope. Collapse. COMPARISON: No prior MRI brain. Correlated to CT dated April 03, 2024 demonstrated no acute intracranial findings. TECHNIQUE: Multiplanar, multisequence MRI of the brain was obtained before and after the intravenous administration of 5 mL (Gadavist) without reported immediate complications. FINDINGS: Patient's motion artifact. No restricted diffusion. No acute intracranial hemorrhage, mass effect, midline shift, hydrocephalus or herniation. Bilateral, multifocal, patchy hyperintense T2 FLAIR signal within the fawn and deep periventricular white matter and subcortical white matter of the centrum semiovale and shankar radiata both cerebral hemispheres. 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 Flow-void signal within the main vessels is normal. Sellar/suprasellar region is normal. Craniocervical junction is intact and normal. No abnormal enhancement within the intra-axial or the extra-axial compartment of the cranium. MR/MR head/brain wo/w con IMPRESSION: No acute brain abnormality. No gross abnormal enhancing lesion. 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 Electronically signed by: Austin Tejeda MD 04/23/2024 12:47 PM EDT RP Dictated By: Austin Castañeda MD Signed By: <Electronically signed by Austin Kirk MDin OV> 04/23/24 1247 DD/ 1050 TD/TT: 04/23/24 1115 Pulp Drier Firer: [facility] External Provider IMG MRI PROCEDURES Final Result documented in this encounter Visit Diagnoses Diagnosis Mass in neck- Primary documented in this encounter Additional Health Concerns Assessment Noted Time PHQ-9 Depression Total Score: 1 04/19/19 24 1:30 PM EST documented as of this encounter Care Teams Tax Associate Attorney Relationship Specialty Start Date End Date Balaji Quinones MD [address] [place] [address] PCP - General Internal Medicine 11/25/13 Kristi Giles PharmD [address] [place] [address] Pharmacist Internal Medicine 01/30/22 documented as of this encounter
--- OUTSIDE RECORDS SUMMARY | 2024-05-07 16:41 | XMS_ITS | Clinical Summary ---
Author Organization Shipping Company Address [address] [facility] [address] [place] [address] Care Team Providers Care Heliotherapist Name Role Phone Balaji Quinones MD Primary Care Provide r Kristi Giles PharmD Unavailable [phone] Allergies No known active allergies Medications sertraline [...] AFFECTED AREA(S) TWICE DAILY 05/07/19 24 Active Aspirin Low Dose 81 MG [...] 2 diabetes mellitus without complication, unspecified whether retirement insulin use ([facility]) TAKE 1 TABLET BY MOUTH ONCE DAILY WITH BREAKFAST DO NOT BREAK, CRUSH, DISSOLVE OR CHEW 90 tablet 1 11/14/19 24 Active glucose blood (FREESTYLE LITE) test stripIndications: Type 2 diabetes mellitus with hyperlipidemia ([facility]/HCC) ([facility]) TEST BLOOD SUGAR ONCE DAILY 100 each 12/28/19 24 Active TRUEplus Lancets 33G miscIndications:T ype 2 diabetes mellitus with hyperlipidemia ([facility]) ([facility]) TEST BLOOD SUGAR ONCE DAILY ICD10= 100 each 12/28/19 24 Active metFORMIN (Glucophage) 1000 MG tabletIndications :Type 2 diabetes mellitus without complication, unspecified whether retirement insulin use ([facility]) TAKE 1 TABLET BY MOUTH TWICE DAILY [...] 2 diabetes mellitus without complication, unspecified whether retirement insulin use ([facility]) Take 1 tablet (45 mg) by mouth Once per day. 90 tablet 3 02/13/19 25 Active polyvinyl alcohol (Liquifilm Tears) 1.4 [...] TABLET BY MOUTH EVERY DAY 90 tablet 04/22/19 25 Active ketoconazole (NIZOral) 2 % creamIndications: Tinea pedis of both feet APPLY 1 GRAM TOPICALLY TO AFFECTED AREA(S) EVERY MORNING 30 g 05/02/19 25 Active Alcohol Swabs (Alcohol Prep) 70 % pads USE DIRECTED TO TEST BLOOD SUGAR 100 each 05/07/19 25 Active Alcohol Swabs (Alcohol Prep) 70 % pads USE DIRECTED TO TEST BLOOD SUGAR 100 each 07/26/19 24 025 Discontinued hydroCHLOROthiazi de 12.5 MG tablet Take 1 tablet (12.5 mg) by mouth Once per day. 90 tablet 10/30/19 24 025 Discontinued Petrolatum 42 % ointment APPLY TOPICALLY TO THE AFFECTED AREA(S) TWICE DAILY DIRECTED 454 g 5 11/09/19 24 025 Discontinued triamcinolone (Kenalog) 0.025 % creamIndications: Dermatitis of lower extremity APPLY 1 GRAM TOPICALLY TO AFFECTED AREA(S) TWICE DAILY 60 g 1 02/19/19 25 025 Discontinued ketoconazole (NIZOral) 2 % creamIndications: Tinea pedis of both feet APPLY 1 GRAM TOPICALLY TO AFFECTED AREA(S) EVERY DAY IN THE MORNING 30 g 03/06/19 25 025 Discontinued Active Problems Problem Noted Date Diagnosed Date Syncope 02/14/2024 Assessment & Plan (02/14/2024 4:19 PM EST): Pt seen at our [facility] 12/28/[address] Lloyd Puckett After pt was walking on sidewalk, felt sudden dizzy, unable to describe dizziness, and the next thing he remembers is being on the ground with facial injuries, abrasions on knees and left wrist. His puydmvyj-vb-jgb brought him to [facility]. Denied headache, chest pain, SOB, n/v/d, or recent illness. States has many year h/o similar recurrent episodes of dizziness that he cannot describe, occasionally falls. ECG today shows sinus arrythmia, IVCD, PACs. Pt tells me he already has a follow up scheduled with Dr. Peres his storage specialist Plan: Obtain ECHO, ECG, EEG. CT of [...] has appointment for an ultrasound coming up Preventative health care 05/11/2022 Assessment & Plan (11/22/2023 11:36 [...] of 3.9 cm. Pt was referred to [facility] surgeons. He was seen 11/06/2016 recommended [...] of 3.9 cm. Pt was referred to [facility] surgeons. He was seen 11/06/2016 recommended [...] of 3.9 cm. Pt was referred to [facility] surgeons. He was seen 11/06/2016 recommended [...] of 3.9 cm. Pt was referred to [facility] surgeons. He was seen 11/06/2016 recommended [...] Encounters Date Type Department Care Team Description 05/06/2024 Patient Outreach [facility] [address] [place] [address] [place] [address] Balaji Quinones MD Pre-visit Planning (Pre-visit planning - LVM ) 05/05/2024 Orders Only GENERIC EXTERNAL DATA DEPARTMENT Provider, Generic External Data 05/04/2024 Telephone [facility] [address], [place] [address] Balaji Quinones MD Med Refill 05/01/2024 Orders Only [facility] [address], [place] [address] Balaji Quinones MD Hypokalemia (Primary Dx) 05/01/2024 Telephone [facility] [address], [place] [address] Balaji Quinones MD Chart Prep 05/01/2024 Telephone [facility] [address], [place] [address] Raquel Kirk, RN Appointment Request 04/30/2024 Refill [facility] [address], [place] [address] Balaji Quinones MD Tinea pedis of both feet 04/28/2024 Orders Only GENERIC EXTERNAL DATA DEPARTMENT Provider, Generic External Data 04/20/2024 Refill [facility] [address], [place] [address] Balaji Quinones MD 04/16/2024 Refill [facility] [address], [place] [address] Balaji Quinones MD Dermatitis of lower extremity 04/15/2024 Telephone [facility] [address], [place] [address] Balaji Quinones MD Results 04/14/2024 Orders Only [facility] [place] [address] Balaji Quinones MD Mass in neck (Primary Dx) 04/03/2024 Telephone [facility] [address], [place] [address] Balaji Quinones MD Results 03/25/2024 Refill [facility] [address] [place] [address] Balaji Quinones MD Primary hypertension 03/14/2024 Refill [facility] [address], [place] [address] Balaji Quinones MD Dry eyes 03/06/2024 Refill [facility] [address] [place] [address] Pam Lemons MD Tinea pedis of both feet 02/27/2024 Telephone [facility] [address] [place] [address] Balaji Quinones MD FYI 02/20/2024 Refill [facility] [address], [place] [address] Balaji Quinones MD Dermatitis of lower extremity 02/14/2024 11:30 AM EST Office Visit [facility] [address], [place] [address] Balaji Quinones MD Primary hypertension (Primary Dx); Type 2 diabetes mellitus without complication, without long-term current use of insulin (CMS/HCC); Aneurysm of ascending aorta without rupture (CMS/HCC); Syncope, unspecified syncope type; Type 2 diabetes mellitus without complication, unspecified whether retirement insulin use (CMS/HCC); Iron deficiency anemia, unspecified iron deficiency anemia type; Hypertension, unspecified type; Mixed hyperlipidemia 02/14/2024 Telephone [facility] [place] [address] Balaji Quinones MD 02/14/2024 Telephone [facility] [address], [place] [address] Balaji Quinones MD Appointment Confirmation 02/14/2024 Travel 02/14/2024 Refill [facility] [address], [place] [address] Balaji Quinones MD Mixed hyperlipidemia; Type 2 diabetes mellitus without complication, unspecified whether retirement insulin use (CMS/HCC); Iron deficiency anemia, unspecified iron deficiency anemia type; Hypertension, unspecified type from Last 3 Months Immunizations Name Administration [...] Description 05/15/2024 11:00 AM EDT Office Visit [facility] [address] [place] [address] Balaji Quinones MD [address] [place] [address] 05/27/2024 1:00 PM EDT Office Visit [facility] [address] [place] [address] Kaci Meadows, OD [address] [place] [address] Health Maintenance Due Date Last Done Comments [...] PSA, FREE Routine 05/05/2024 9:25 AM EDT BASIC METABOLIC PANEL Routine 05/05/2024 9:25 AM EDT Hypokalemia GRAM STAIN Routine 04/28/2024 2:20 PM EDT BASIC METABOLIC PANEL Routine 04/28/2024 10:43 AM EDT GLUCOSE, WHOLE BLOOD Routine 04/28/2024 10:28 AM EDT MR BRAIN W AND WO CONTRAST Routine 04/23/2024 10:50 AM EDT AMB REFERRAL TO NEUROLOGY Routine 04/10/2024 Syncope, [...] Recently Relevant to Health Maintenance Results * (ABNORMAL) PSA, Total With Reflex to PSA, Free (05/05/2024 9:25 AM EDT) PSA,Total (Free>4and<10) 49.69(H ) 0.00 - 4.00 ng/mL [facility] Comment:A Free PSA was not [...] Provider LAB BLOOD ORDERAB LES Final Result [facility] [address] [place] [phone] * (ABNORMAL) Basic Metabolic Panel (05/05/2024 9:25 AM EDT) Only the most recent of2 resultswithin the time period is included. Sodium 135 135 - 145 mmol/L [facility] Potassium 4.4 3.3 - 5.1 mmol/L [facility] Chloride 101 96 - 108 mmol/L [facility] Carbon Dioxide 30(H) 22 - 29 mmol/L [facility] Anion Gap 8(L) 12 - 20 [facility] Urea Nitrogen (BUN) 4(L) 9 - 16 mg/dL [facility] Creatinine, Serum 0.75 0.5 - 1.4 mg/dL [facility] Estimated Glomerular Filt Rate >60 [facility] Comment:Chronic Kidney Disea se: Estimated GFR < 60 mL/min/1.80e8Aclmck Kidney Disease: Estimated GFR < 15 mL/min/1.73m2 Glucose 176(H) 60 - 115 mg/dL [facility] Calcium 8.6 8.4 - 10.2 mg/dL [facility] Blood Venous blood specimen / Unknown 05/05/2024 9:25 AM EDT 05/05/2024 11:36 AM EDT Balaji Donnelly MD LAB BLOOD ORDERABLES Final Result Performing Organization Address [facility] de Phone Number [facility] [address] [place] [phone] * Gram stain (04/28/2024 2:20 PM EDT) 04/28/2024 2:20 PM EDT 04/29/2024 8:42 AM EDT Comment:Bronc Wash Narrative [facility] - 04/29/2024 8:50 AM EDT Test not performed Routine Culture Test not performed Unable to perform culture due to laboratory error. Sample already processed by the pathology department. Specimen Source: Bronchial Washings Generic External Data Provider LAB MICROBIOLOGY - GENERAL ORDERABLES Final Result Performing Organization Address [facility] de Phone Number [facility] [address] [place] [phone] * (ABNORMAL) Glucose, Whole Blood (04/28/2024 10:28 AM EDT) Glucose, Whole Blood 166(H) 60 - 115 mg/dL [facility] Comment:METER #: [id number] 04/28/2024 10:2 8 AM EDT 04/28/2024 10:33 AM EDT Generic External Data Provider LAB BLOOD ORDERAB LES Final Result Performing Organization Address [facility] de Phone Number [facility] [address] [place] [phone] * Mr Brain w/ and w/o Contrast (04/23/2024 10:50 AM EDT) Anatomical Region Laterality Modality Brain Magnetic Resonan ce 04/23/2024 10:5 0 AM EDT Narrative 04/23/2024 12:50 PM EDT ? [facility] [facility] ?[address] ?[place] [address] ? Magnetic Resonance Report ? Signed ? Patient: Alonso,Paul ?MR#: [id number] ?? 33 ? : 1955 ?Acct:[id number] ? Age/Sex: 68 / M ?ADM Date: 04/23/24 ? Loc: HO.MRI ? Attending Dr: Jessica Palacios MD ? Ordering Physician: Jessica Palacios MD ?? Date of Service: 04/23/24 ?? Procedure(s): MR head/brain wo/w con ?? Accession Number(s): [id number] ? cc: Balaji Sanderson MD; Jessica Palacios [...] Tejeda MD ??04/23/2024 12:47 PM ?? EDT RP ? Dictated By: ?Austin Castañeda MD ? Signed By: ?<Electronically signed by Austin Kirk MD in OV> ? 04/23/24 1247 ? DD/ 1050 ? TD/TT: 04/23/24 1115 ? Marketing Sales Representative: ? Procedure Note Donotisamarter, Image - 04/23/2024 [place] [address] Magnetic Resonance Report Signed Patient: Jayda Alonso#: [id number] 33 : 5Acct:[id number] Age/Sex: 68 / MADM Date: 04/23/24 Loc: HO.MRI Attending Dr: Jessica Palacios MD Ordering Physician: Jessica Palacios MD Date of Service: 04/23/24 Procedure(s): MR head/brain wo/w con Accession Number(s): [id number] cc: Balaji Sanderson MD; Jessica Palacios MD [...] 04/23/24 1247 DD/ 1050 TD/TT: 04/23/24 1115 Marketing Sales Representative: us [facility] External Provider IMG MRI PROCEDURES Final Result * Referral to Neurology (04/10/2024) us Balaji Donnelly MD OUTPATIENT REFERRAL O RDERABLES Final Result * CTA Chest w/ and w/o Contrast (04/03/2024 12:33 PM EST) Anatomical Region Laterality Modality Body, Chest Computed Tomogra phy 04/03/2024 12:3 3 PM EST Narrative 04/03/2024 12:34 PM EST ? [facility] ?[address] ?[place] [address] ? CT Scan Report ? Signed with Addenda ? Patient: Alonso,Paul ?MR#: [id number] ?? 33 ? : 1955 ?Acct:[id number] ? Age/Sex: 68 / M ?ADM Date: 04/03/24 ? Loc: HO.CT ? Attending Dr: Balaji Sanderson MD ? Ordering Physician: Balaji Sanderson MD ?? Date of Service: 04/03/24 ?? Procedure(s): CT angio chest aorta ?? Accession Number(s): [id number] ? cc: Baljai Sanderson MD ? Report Number: ?? [id number]: Total DLP = ??212.27 mGy-cm ?ADDENDUM ?? [...] DD/ 1233 ? TD/TT: 04/03/24 1233 ? Marketing Sales Representative: ? Procedure Note Xenia Gilliam - 04/04/[address] [place] [address] CT Scan Report Signed with Addenda Patient: Jayda Alonso#: [id number] 33 : 5Acct:[id number] Age/Sex: 68 / MADM Date: 04/03/24 Loc: HO.CT Attending Dr: Balaji Sanderson MD Ordering Physician: Balaji Sanderson MD Date of Service: 04/03/24 Procedure(s): CT angio chest aorta Accession Number(s): [id number] cc: Balaji Sanderson MD Report Number: [id number]: Total DLP = 212.27 mGy-cm ADDENDUM This [...] 04/03/24 1234 DD/ 1233 TD/TT: 04/03/24 1233 Marketing Sales Representative: us Balaji Donnelly MD IMG CT PROCEDURES Jaspal tennille Result - Final * CT Head w/o Contrast (04/03/2024 10:11 AM EST) Anatomical Region Laterality Modality Head, Neck Computed Tomogra phy 04/03/2024 10:1 1 AM EST Narrative 04/03/2024 10:12 AM EST ? [facility] ?[address] ?[place] [address] ? CT Scan Report ? Signed ? Patient: Paul Alonso ?MR#: [id number] ?? 32 ? : 1955 ?Acct:[id number] ? Age/Sex: 68 / M ?ADM Date: 04/03/24 ? Loc: HO.CT ? Attending Dr: Balaji Sanderson MD ? Ordering Physician: Balaji Sanderson MD ?? Date of Service: 04/03/24 ?? Procedure(s): CT head/brain wo IV con ?? Accession Number(s): [id number] ? cc: Balaji Sanderson MD ? Report Number: ?? [id number]: Total DLP = ??672.66 mGy-cm ? CLINICAL HISTORY: syncope ? CT head without contrast ? Comparison: None ? Findings: ?? No intra-axial mass, midline shift, hydrocephalus, or acute hemorrhage. ?? Jwfs-za-wcgfnzjw age-related cerebral hemispheric white matter changes. ?? [...] DD/ 1011 ? TD/TT: 04/03/24 1011 ? Marketing Sales Representative: ? Procedure Note Radhacade, Image - 04/03/[address] [place] [address] [address] Scan Report Signed Patient: Jayda Alonso#: [id number] 32 : 5Acct:[id number] Age/Sex: 68 / MADM Date: 04/03/24 Loc: HO.CT Attending Dr: Balaji Sanderson MD Ordering Physician: Balaji Sanderson MD Date of Service: 04/03/24 Procedure(s): CT head/brain wo IV con Accession Number(s): [id number] cc: Balaji Sanderson MD Report Number: [id number]: Total DLP = 672.66 mGy-cm CLINICAL HISTORY: syncope CT head without contrast Comparison: None Findings: No intra-axial mass, midline shift, hydrocephalus, or acute hemorrhage. Sssv-df-ilosjqzy age-related cerebral hemispheric white matter changes. Small [...] 04/03/24 1012 DD/ 1011 TD/TT: 04/03/24 1011 Marketing Sales Representative: Balaji Donnelly MD IMG CT PROCEDURES Fin al Result * ECG 12 lead (02/14/2024 4:18 PM EST) Narrative Balaji Quinones MD - 02/14/2024 4:18 PM EST Sinus arrhythmia, PACs, IVC delay Balaji Donnelly MD ECG ORDERABLES Final Result * (ABNORMAL) POCT HGB A1C (02/14/2024 11:31 AM EST) Pathologist [facility] Hemoglobin A1C 6.6(A) 4.0 - 6.0 % QC Media Lot # [id number] Lot# Expiration Date , Blood 02/14/2024 11:3 1 AM EST Balaji Donnelly MD POINT OF CARE TEST EN TER/EDIT ORDERABLES Final Result * POCT Glucose (02/14/2024 11:28 AM EST) Pathologist [facility] Glucose Blood, POC 186 60 - 200 mg/dL QC Media Lot # [id number] Lot# Expiration Date ,,025 Blood Capillary blood specimen / Unknown 02/14/2024 11:28 AM EST Balaji Donnelly MD POINT OF CARE TEST EN TER/EDIT ORDERABLES Final Result * (ABNORMAL) Lipid Panel with Reflex to Direct LDL (06/19/2023 1:23 PM EDT) Pathologist [facility] Triglycerides 158(H) <150 mg/dL [facility] Comment:Desirable Triglyceri de: less than 150 [...] 190 mg/dL HDL Cholesterol 30(L) >40 mg/dL [facility] Comment:Desirable HDL: great er than 40 mg/dL Note: This HDL assay may give artificially low results in patients with liver disease. Blood 06/19/2023 1:23 PM EDT 06/19/2023 4:12 PM EDT Balaji Donnelly MD LAB BLOOD ORDERABLES Final Result Performing Organization Address City/[facility] Co de Phone Number [facility] [address] [place] [phone] * Albumin, Random Urine W/Creatinine (06/19/2023 12:00 AM EDT) Creatinine, Urine 137.18 mg/dL [facility] Microalbumin Urine 21.0 mg/L [facility] Microalbum Creatinine Ratio Ur 15.3 <30 ug/mg cr [facility] Comment:Albumin/Creatinine R atio Reference Ranges: Normal: < 30 ug/mg creatinine Microalbuminuria: 30 - 300 ug/mg creatinineClinical Albuminuria: > 300 ug/mg creatinine Urine (Urine, Random) 06/19/2023 06/19/2023 Balaji Donnelly MD LAB URINE ORDERABLES Final Result Performing Organization Address [facility]/ZIP Co de Phone Number [facility] [address] [place] [phone] * Hepatitis C Antibody with Reflex to HCV, RNA, Quantitative, Real-Time PCR (07/05/2022 8:13 AM EDT) Hepatitis C Antibody NON-REACT MADDY NON-REACT MADDY [employer] Index 0.04 <1.00 [employer] Comment: HCV antibody was non-reactive. There is no laboratory evidence of HCV infection. In most cases, no further action is required. However, if recent HCV exposure is suspected, a test for HCV RNA (test code 92361) is suggested. For additional information please refer to http://education.[employer]/faq/AHE18b9 (This link is being provided for informational/ educational purposes only.) Blood Venous blood specimen / Unknown 07/05/2022 8:13 AM EDT 07/05/2022 8:14 AM EDT Narrative [facility] - 07/06/2022 11:54 AM EDT FASTING:YES FASTING: YES Balaji Donnelly MD LAB BLOOD ORDERABLES Final Result [facility] [address], [place] [phone] [employer] [address] [place] [phone] * Colonoscopy (07/10/2017) Pathologist [facility] Colonoscopy Normal Normal 07/10/2017 Shikha Morel - 07/10/2017 3:47 PM EDT Recommended 10 year follow up ( [facility] ) Historical Provider HEALTH MAINTENANCE Final Result from Last 3 Months or Most Recently Relevant to Health Maintenance Insurance [facility] [employer] MEDICARE Member Subscriber Plan / Payer (Ef fective 2022-Present) Name:Paul Alonso Member ID:[id number] Relation to Subscriber:Self Name:Paul Alonso Subscriber ID:[id number] Payer ID:STATE Group ID:Not on file Type:Medicare Address: [facility] [employer] [facility], [facility]. [address] [place] [address] Care Teams Heliotherapist Relationship Specialty Start Date End Date Balaji Quinones MD [address] [place] [address] PCP - General Internal Medicine 11/25/13 Kristi Giles, Quentin [address] [place] [address] Pharmacist Internal Medicine 01/30/22
== END 2024-05-07 15:59 | disposition home or self-care (01) ==
LOC: HO.HUSH 13:52
PROVIDERS: PCP Internal Medicine; Visit Provider Urology
DX: R97.20 Elevated prostate specific antigen [PSA] (principal)
CPT/HCPCS: 99214

== ENCOUNTER → 2024-05-07 13:51 | Outpatient (BNVA) | payer MEDICARE, MEDICAID, SELFPAY | PROVIDERS: PCP Internal Medicine; Visit Provider Urology | DX: R97.20 Elevated prostate specific antigen [PSA] (principal) | CPT/HCPCS: 99212 ==

== ENCOUNTER 2024-05-08 14:13 | Outpatient (AMB) | payer MEDICARE, MEDICAID, SELFPAY ==
[2024-05-08 14:40] VITALS: BP 118/64; PULSE 70; O2SAT 99; BMI 22.3
--- NOTE | 2024-05-08 14:40 | A.OFFVIS_ITS ---
Vital Signs 3 05/08/24 14:40 Height 5 ft 3 in Weight 125 lb 10.616 oz BMI 22.3 BP 118/64 Blood Pressure Location Lt brachial Position Sitting Pulse 70 Pulse Source Pulse Oximeter Pulse Oximetry (%) 99 Oxygen Delivery Method Room Air Intake Visit Reasons: Bronchoscopy Follow Up Allergies No Known Allergies Allergy (Verified 05/07/24 14:52) HPI Comments Details: The patient is a 68-year-old gentleman who presents with an abnormal CT scan of the chest. Apparently he was in usual state health until he had a CT of the chest angiogram to assess his aorta. It came back abnormal with significant mediastinal lymphadenopathy and referred to Pulmonary. I did visualize his CT scan from 2022 and also from 05/01/2024. It actually demonstrates that he has a 3.5 cm masslike density in the area of the paratracheal lymph node. No other significant lymphadenopathy noted. No parenchymal disease. The patient is a lifelong nonsmoker. Denies any decreased appetite. He has had some weight loss however. He has gone up and down. Denies any night sweats. Denies any rashes. Did have blood work done his sedimentation rate was only 7 which is reassuring. However, based on the size of the normal paratracheal lymph node masslike density a biopsy is warranted. I did talk about a endobronchial ultrasound bronchoscopy with transbronchial needle aspirations will be the best approach. He is agreeable to this and will make arrangements to do soon as possible. 05/08/2024 the patient is here for a pulmonary follow-up visit. He is status post EBUS. He tolerated procedure well. Denying any complications or symptoms afterwards. He denies any shortness of breath. Overall he is pretty asymptomatic. Except that he has is masslike density in the area of the 4R distribution. Initially thought to be carcinoid on the preliminary results. However, now the results are consistent with metastatic prostate cancer. Indeed his PSA has been elevated he has been following closely with urology. I did reach out to urology to let him know the results and they will be calling the patient for an earlier appointment. As it is already an MRI was order for him to assess an elevated PSA. The patient is understanding the results. He understands that once he is evaluated by Urology day he will start potentially some treatment to shrink the cancer. Patient will follow-up in 4 months with me. Will do a CAT scan prior to that visit to assess the response to therapy. [facility] Medical History Lymphadenopathy, mediastinal Thoracic aortic aneurysm (TAA) Depression Hyperlipemia HTN (hypertension) Diabetes Anemia Surgical History Hx of prostate biopsy Hx of umbilical hernia repair H/O colonoscopy Family History Sister Breast cancer Social History Household Members: None Housing: Apartment Are you a primary childcare administrator to a significant other at home: No Do you presently have visiting nurse or other home services: No Alcohol intake: former Patient Tobacco Use Status: Never used Tobacco service: No Current occupational status: disabled Review of Systems Const Denies fatigue, Denies fever(s) and Denies weight loss Eyes Reports no additional complaints ENT Reports no additional complaints Card Denies chest pain Resp Reports no additional complaints GI Denies abdominal pain Musc Reports no additional complaints Skin/Breast Denies rash Neuro Reports no additional complaints Endo Denies fatigue Kofi/Lymph Reports no additional complaints Aller/Immun Reports no additional complaints Physical Exam Vital Signs: Last Vital Signs Pulse 70 05/08/24 14:40 BP 118/64 05/08/24 14:40 Pulse Ox 99 05/08/24 14:40 Oxygen Delivery Method Room Air 05/08/24 14:40 BMI result Body Mass Index 22.3 Const General: comfortable HEENT Head: Yes normocephalic Neck Neck: Yes supple Chest Chest palpation & inspection: normal inspection of the chest Resp Effort & Inspection: normal respiratory effort Auscultation: diminished lung sounds Cardio Heart sounds: S1 normal heart sound present and S2 normal heart sound present GI Palpation (GI): Soft to palpation Skin General skin exam: no rashes or lesions noted Extrem General: Yes no clubbing, cyanosis or edema Results Reviewed Results Reviewed: Assessment & Plan Assessment & Plan (1) Lymphadenopathy, mediastinal: Code(s): R59.0 - Localized enlarged lymph nodes Category: Medical (2) 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
--- OUTSIDE RECORDS SUMMARY | 2024-05-08 17:51 | XMS_ITS | Encounter Summary ---
Author Organization [employer] Address [address] [facility] 7t [place] [address] Care Team Providers Care Poultry Tender Name Role Phone Balaji Quinones MD Primary Care Provide r Kristi Giles PharmD Unavailable [phone] Reason for Visit * Reason Onset Date Comments Results 04/15/2024 Encounter Details Date Type Department Care Team ([facility] st Contact Info) Description 04/15/2024 Telephone [facility] MEDICINE [address] [place] [address] Balaji Quinones MD [address] [place] [address] Results Social History Tobacco Use Types Packs/Day [...] AM EST TC placed to pt with [facility] make up worker #[id number] to inform of the pt CTA chest [...] call regarding prior message. Contact pt at [phone] * Telephone Encounter - Lilly Saldana RN - 04/15/2024 8:54 AM EST Telephone call x1 to pt to advise of results and referral, no answer, left voicemail to call back [facility]. Will task to call again. --Dr [...] Description 05/15/2024 11:00 AM EDT Office Visit [facility] MEDICINE [address] [place] [address] Balaji Quinones MD [address] [place] [address] 05/27/2024 1:00 PM EDT Office Visit [facility] OPTOMETRY [address] [place], [place] [phone] Kaci Meadows, OD [address] [place] [address] documented as of this encounter Goals Goal [...] documented as of this encounter Care Teams Poultry Tender Relationship Specialty Start Date End Date Balaji Quinones MD [address] [place], [place] [phone] PCP - General Internal Medicine 11/25/13 Kristi Giles, SarayD [address] [place] [address] Pharmacist Internal Medicine 01/30/22 documented as of this encounter
--- OUTSIDE RECORDS SUMMARY | 2024-05-08 17:51 | XMS_ITS | Encounter Summary ---
Author Organization [employer] Address [address] [facility] [address] 7[address] [place] [address] Care Team Providers Care Metal Fabricating Inspector Name Role Phone Balaji Quinones MD Primary Care Provide r Kristi Giles PharmD Unavailable [phone] Encounter Details Date Type Department Care Team (Late st Contact Info) Description 05/01/2024 Orders Only [facility] MEDICINE [address] [place] [address] Balaji Quinones MD [address] [place] [address] Hypokalemia (Primary Dx) Social History Tobacco Use [...] Description 05/15/2024 11:00 AM EDT Office Visit [facility] MEDICINE [address] [place] [address] Balaji Quinones MD [address] [place] [address] 05/27/2024 1:00 PM EDT Office Visit [facility] OPTOMETRY [address] [place] [address] Abdiel, Kaci, OD [address] [place] [address] documented as of this encounter Goals Goal [...] EDT) Sodium 135 135 - 145 mmol/L [facility] Potassium 4.4 3.3 - 5.1 mmol/L [facility] Chloride 101 96 - 108 mmol/L [facility] Carbon Dioxide 30(H) 22 - 29 mmol/L [facility] Anion Gap 8(L) 12 - 20 [facility] Urea Nitrogen (BUN) 4(L) 9 - 16 mg/dL [facility] Creatinine, Serum 0.75 0.5 - 1.4 mg/dL [facility] Estimated Glomerular Filt Rate >60 [facility] Comment:Chronic Kidney Disea se: Estimated GFR < 60 mL/min/1.00g3Gigmfm Kidney Disease: Estimated GFR < 15 mL/min/1.73m2 Glucose 176(H) 60 - 115 mg/dL [facility] Calcium 8.6 8.4 - 10.2 mg/dL [facility] Blood Venous blood specimen / Unknown 05/05/2024 9:25 AM EDT 05/05/2024 11:36 AM EDT us Balaji Donnelly MD LAB BLOOD ORDERABLES Final Result [facility] [address] [place] [address] [phone] documented in this encounter Visit Diagnoses Diagnosis Hypokalemia- Primary Hypopotassemia documented in this encounter Additional Health Concerns Assessment Noted Time PHQ-9 Depression Total Score: 1 04/19/19 24 1:30 PM EST documented as of this encounter Care Teams Metal Fabricating Inspector Relationship Specialty Start Date End Date Balaji Quinones MD [address] [place] [address] PCP - General Internal Medicine 11/25/13 Kristi Giles PharmD [address] [place] [address] Pharmacist Internal Medicine 01/30/22 documented as of this encounter
--- OUTSIDE RECORDS SUMMARY | 2024-05-08 17:51 | XMS_ITS | Encounter Summary ---
Author Organization [employer] Address [address] [facility] 7t [place] [address] Care Team Providers Care Cardiopulmonary Technologist Chief Name Role Phone Balaji Quinones MD Primary Care Provide r Kristi Giles PharmD Unavailable [phone] Reason for Visit * Reason Onset Date Comments Chart Prep 05/01/2024 Encounter Details Date Type Department Care Team ([facility] st Contact Info) Description 05/01/2024 Telephone [facility] MEDICINE [address] [place] [address] Balaji Quinones MD [address] [place] [address] Chart Prep Social History Tobacco Use Types [...] Description 05/15/2024 11:00 AM EDT Office Visit [facility] MEDICINE [address] [place] [address] Balaji Quinones MD [address] [place] [address] 05/27/2024 1:00 PM EDT Office Visit [facility] OPTOMETRY [address] [place] [address] Kaci Meadows OD [address] [place] [address] documented as of this encounter Goals Goal [...] documented as of this encounter Care Teams Cardiopulmonary Technologist Chief Relationship Specialty Start Date End Date Balaji Quinones MD [address] [place] [address] PCP - General Internal Medicine 11/25/13 Kristi Giles PharmD [address] [place] [address] Pharmacist Internal Medicine 01/30/22 documented as of this encounter
--- OUTSIDE RECORDS SUMMARY | 2024-05-08 17:51 | XMS_ITS | Encounter Summary ---
Author Organization [employer] Address [address] [facility] 7t [place] [address] Care Team Providers Care Platform Man Name Role Phone Balaji Quinones MD Primary Care Provide r Kristi Giles PharmD Unavailable [phone] Reason for Visit * Reason Comments Med Refill Encounter Details Date Type Department Care Team (Late st Contact Info) Description 09/17/2022 Refill [facility]ALK[facility] [address] [place] [address] Balaji Quinones MD [address] [place] [address] Dry eyes Social History Tobacco Use Types [...] 11:00 AM EDT Office Visit [facility] MEDICINE [address] [place] [address] Balaji Quinones MD [address] [place] [address] 05/27/2024 1:00 PM EDT Office Visit [facility] OPTOMETRY [address] [place] [address] Kaci Meadows, OD [address] [place] [address] documented as of this encounter Goals Goal [...] insufficiency documented in this encounter Care Teams Platform Man Relationship Specialty Start Date End Date Balaji Quinones MD [address] [place] [address] PCP - General Internal Medicine 11/25/13 Kristi Giles PharmD [address] [place] [address] Pharmacist Internal Medicine 01/30/22 documented as of this encounter
--- OUTSIDE RECORDS SUMMARY | 2024-05-08 17:51 | XMS_ITS | Encounter Summary ---
Author Organization [employer] Address [address] [facility] [address] 7[address] [place] [address] Care Team Providers Care Superintendent Maintenance Name Role Phone Balaji Quinones MD Primary Care Provide r Kristi Giles PharmD Unavailable [phone] Reason for Visit * Reason Comments Med Refill Encounter Details Date Type Department Care Team (Late st Contact Info) Description 06/11/2023 Refill [facility] MED & PEDS [address] [place] [address] Balaji Quinones MD [address] [place] [address] Swelling of right middle finger Social History [...] Description 05/15/2024 11:00 AM EDT Office Visit [facility] MEDICINE [address] [place] [address] Balaji Quinones MD [address] [place] [address] 05/27/2024 1:00 PM EDT Office Visit [facility] OPTOMETRY [address] [place] [address] Kaci Meadows, OD [address] [place] [address] documented as of this encounter Goals Goal [...] documented as of this encounter Care Teams Superintendent Maintenance Relationship Specialty Start Date End Date Balaji Quinones MD [address] [place] [address] PCP - General Internal Medicine 11/25/13 Kristi Giles, SarayD [address] [place] [address] Pharmacist Internal Medicine 01/30/22 documented as of this encounter
--- OUTSIDE RECORDS SUMMARY | 2024-05-08 17:51 | XMS_ITS | Encounter Summary ---
Author Organization [employer] Address [address] [facility] [address] 7t [place] [address] Care Team Providers Care Chore Worker Name Role Phone Balaji Quinones MD Primary Care Provide r Kristi Giles PharmD Unavailable [phone] Reason for Visit * Reason Comments Med Refill Encounter Details Date Type Department Care Team ([facility] st Contact Info) Description 12/24/2023 Refill [facility] [address] [place] [address] Balaji Quinones MD [address] [place] [address] Folliculitis Social History Tobacco Use Types Packs/Day [...] 11:00 AM EDT Office Visit [facility] MEDICINE [address] [place] [address] Balaji Quinones MD [address] [place] [address] 05/27/2024 1:00 PM EDT Office Visit [facility] OPTOMETRY [address] [place] [address] Kaci Meadows, OD [address] [place] [address] documented as of this encounter Goals Goal [...] documented as of this encounter Care Teams Chore Worker Relationship Specialty Start Date End Date Balaji Quinones MD [address] [place] [address] PCP - General Internal Medicine 11/25/13 Kristi Giles, SarayD [address] [place] [address] Pharmacist Internal Medicine 01/30/22 documented as of this encounter
--- OUTSIDE RECORDS SUMMARY | 2024-05-08 17:51 | XMS_ITS | Encounter Summary ---
Author Organization [employer] Address [address] [facility] 7t [place] [address] Care Team Providers Care Special Investigator Name Role Phone Balaji Quinones MD Primary Care Provide r Kristi Giles PharmD Unavailable [phone] Reason for Visit * Reason Comments Med Refill Encounter Details Date Type Department Care Team ([facility] st Contact Info) Description 05/04/2024 Telephone [facility] MEDICINE [address] [place] [address] Balaji Quinones MD [address] [place] [address] Med Refill Social History Tobacco Use Types [...] Telephone Encounter - Lilly Saldana RN - 05/08/2024 2:10 PM EDT Received call from VENTURA Soler at [facility] who stated that Dr Rico is aware of recent elevated PSA and saw the pt yesterday. Plan is for prostate MRI. Advised will let PCP know. * Telephone Encounter - Lilly Saldana RN - 05/08/2024 1:42 PM EDT Called [facility] x2, left voicemail for nurses asking for call back. Pt saw Dr Rico yesterday 05/07/24, note (dated 05/07/24 under Encounters) mentions recent PSA level of 49 that was drawn, plan per note is to order an MRI and have f/u appt 06/2024. * Telephone Encounter - Lilly Saldana RN - 05/07/2024 2:[address] Rico's medical collections representative, left detailed message asking for call back to confirm aware ofPSA level ordered by Dr Rico. * Telephone Encounter - Lilly Saldana RN - 05/06/2024 12:40 PM EDT [facility] ordered by Dr Rico at [facility]. Called [facility], left detailed message on nurse line [...] is impossible for me to know from [facility] * Telephone Encounter - Lilly Saldana RN - 05/06/2024 11:48 AM EDT ----- Message from Balaji Donnelly MD sent at 05/06/2024 10:48 AM EDT ----- Very elevated PSA, test done by outside provider. Please contact patient's Urologist to make sure they are aware of result. They might have been the ones that ordered, but it is impossible for me to know from [facility] documented in this encounter Plan of Treatment Upcoming Encounters Date Type Department Care Team (Late st Contact Info) Description 05/15/2024 11:00 AM EDT Office Visit [facility] MEDICINE [address] [place] [address] Balaji Quinones MD [address] [place], [place] [phone] 05/27/2024 1:00 PM EDT Office Visit [facility] OPTOMETRY [address] [place] [address] Kaci Meadows, OD [address] [place] [address] documented as of this encounter Goals Goal [...] documented as of this encounter Care Teams Special Investigator Relationship Specialty Start Date End Date Balaji Quinones MD [address] [place] [address] PCP - General Internal Medicine 11/25/13 Kristi Giles PharmD [address] [place] [address] Pharmacist Internal Medicine 01/30/22 documented as of this encounter
--- OUTSIDE RECORDS SUMMARY | 2024-05-08 17:51 | XMS_ITS | Encounter Summary ---
Author Organization [employer] Address [address] [place] [address] Care Team Providers Care Web Development Intern Name Role Phone Balaji Quinones MD Primary Care Provide r Kristi Giles PharmD Unavailable [phone] Reason for Visit * Reason Comments Med Refill Encounter Details Date Type Department Care Team ([facility] st Contact Info) Description 08/01/2023 Refill [facility] [address] [place] [address] Vani Stallworth MD [address] [place] [address] Folliculitis Social History Tobacco Use Types Packs/Day [...] [facility] [address] [place] [address] Balaji Quinones MD [address] [place] [address] 05/27/2024 1:00 PM EDT Office Visit [facility] OPTOMETRY [address] [place] [address] Abdiel, Kaci, OD [address] [place] [address] documented as of this encounter Goals Goal [...] documented as of this encounter Care Teams Web Development Intern Relationship Specialty Start Date End Date Balaji Quinones MD [address] [place] [address] PCP - General Internal Medicine 11/25/13 Kristi Giles, SarayD [address] [place] [address] Pharmacist Internal Medicine 01/30/22 documented as of this encounter
--- OUTSIDE RECORDS SUMMARY | 2024-05-08 17:51 | XMS_ITS | Encounter Summary ---
Author Organization [employer] Address [address] [facility] 7t [place] [address] Care Team Providers Care Shift Superintendent Name Role Phone Balaji Quinones MD Primary Care Provide r Kristi Giles PharmD Unavailable [phone] Reason for Visit * Reason Comments Med Refill Encounter Details Date Type Department Care Team ([facility] st Contact Info) Description 04/16/2024 Refill [facility] MEDICINE [address] [place] [address] Balaji Quinones MD [address] [place] [address] Dermatitis of lower extremity Social History Tobacco [...] 05/15/2024 11:00 AM EDT Office Visit [facility] MEDICINE [address] [place] [address] Balaji Quinones MD [address] [place] [address] 05/27/2024 1:00 PM EDT Office Visit [facility] OPTOMETRY [address] [place] [address] Kaci Meadows, OD [address] [place] [address] documented as of this encounter Goals Goal Patient Goal Type Associated Problems Recent Progress Patient-Stated? Author Blood Pressure < 140/90 Blood Pressure 128/80(2024 11:18 AM EST) No Krsiti Giles PharmD Note: Maintain BP less than [...] documented as of this encounter Care Teams Shift Superintendent Relationship Specialty Start Date End Date Balaji Quinones MD [address] [place] [address] PCP - General Internal Medicine 11/25/13 Kristi Giles, SarayD [address] [place] [address] Pharmacist Internal Medicine 01/30/22 documented as of this encounter
--- OUTSIDE RECORDS SUMMARY | 2024-05-08 17:51 | XMS_ITS | Encounter Summary ---
Author Organization [employer] Address [address] [facility] 7t [place] [address] Care Team Providers Care Ux Engineer Name Role Phone Balaji Quinones MD Primary Care Provide r Kristi Giles PharmD Unavailable [phone] Reason for Visit * Reason Comments Med Refill Encounter Details Date Type Department Care Team ([facility] st Contact Info) Description 04/20/2024 Refill [facility] MEDICINE [address] [place] [address] Balaji Quinones MD [address] [place] [address] Social History Tobacco Use Types Packs/Day Years [...] Description 05/15/2024 11:00 AM EDT Office Visit [facility] MEDICINE [address] [place] [address] Balaji Quinones MD [address] [place] [address] 05/27/2024 1:00 PM EDT Office Visit [facility] OPTOMETRY [address] [place] [address] Abdiel, Kaci, OD [address] [place] [address] documented as of this encounter Goals Goal [...] documented as of this encounter Care Teams Ux Engineer Relationship Specialty Start Date End Date Balaji Quinones MD [address] [place] [address] PCP - General Internal Medicine 11/25/13 Kristi Giles, PharmD [address] [place] [address] Pharmacist Internal Medicine 01/30/22 documented as of this encounter
--- OUTSIDE RECORDS SUMMARY | 2024-05-08 17:51 | XMS_ITS | Encounter Summary ---
Author Organization [employer] Address [address] [facility] 7t [place] [address] Care Team Providers Care Sign Painter Name Role Phone Balaji Quinones MD Primary Care Provide r Kristi Giles PharmD Unavailable [phone] Reason for Visit * Reason Comments Pre-visit Planning Pre-visit planning - LVM Encounter Details Date Type Department Care Team ([facility] Contact Info) Description 05/06/2024 Patient Outreach [facility] MEDICINE [address] [place] [address] Balaji Quinones MD [address] [place] [address] Pre-visit Planning (Pre-visit planning - LVM ) [...] EDT Office Visit [facility] MEDICINE [address] [place] [address] Balaji Quinones MD [address] [place] [address] 05/27/2024 1:00 PM EDT Office Visit [facility] OPTOMETRY [address] [place] [address] Kaci Meadows, HANY [address] [place] [address] documented as of this encounter Goals Goal [...] documented as of this encounter Care Teams Sign Painter Relationship Specialty Start Date End Date Balaji Quinones MD [address] [place] [address] PCP - General Internal Medicine 11/25/13 Kristi Giles PharmD [address] [place] [address] Pharmacist Internal Medicine 01/30/22 documented as of this encounter
--- OUTSIDE RECORDS SUMMARY | 2024-05-08 17:51 | XMS_ITS | Encounter Summary ---
Author Organization [employer] Address 75 [facility] 7t [place] [address] Care Team Providers Care Patient Portal Representative Name Role Phone Balaji Quinones MD Primary Care Provide r Kristi Giles PharmD Unavailable [phone] Encounter Details Date Type Department Care Team ([facility] Contact Info) Description 06/22/2022 Abstract [facility] [address] [place] [address] Balaji Quinones MD [address] [place], [place] [phone] Social History Tobacco Use Types Packs/Day Years [...] Upcoming Encounters Date Type Department Care Team ([facility] Contact Info) Description 05/15/2024 11:00 AM EDT Office Visit [facility] [address] [place] [address] Balaji Quinones MD [address] [place], [place] [phone] 05/27/2024 1:00 PM EDT Office Visit [facility] [address] [place] [address] Kaci Meadows, OD 230 [place] [address] documented as of this encounter Goals Goal [...] EDT Recommended 10 year follow up ( [facility] ) Historical Provider HEALTH MAINTENANCE Final Result documented in this encounter Visit Diagnoses Not on filedocumented in this encounter Care Teams Patient Portal Representative Relationship Specialty Start Date End Date Balaji Quinones MD [address] [place] [address] PCP - General Internal Medicine 11/25/13 Kristi Giles PharmD 230 [place] [address] Pharmacist Internal Medicine 01/30/22 documented as of this encounter
--- OUTSIDE RECORDS SUMMARY | 2024-05-08 17:51 | XMS_ITS | Encounter Summary ---
Author Organization [employer] Address [address] [facility] [address] 7t [place] [address] Care Team Providers Care Expansion Joint Finisher Name Role Phone Balaji Quinones MD Primary Care Provide r Kristi Giles PharmD Unavailable [phone] Reason for Visit * Reason Comments Med Refill Encounter Details Date Type Department Care Team ([facility] st Contact Info) Description 06/25/2023 Refill [facility] [address] [place] [address] Balaji Quinones MD 230 [place] [address] Folliculitis Social History Tobacco Use Types Packs/Day [...] [facility] [address] [place] [address] Balaji Quinones MD [address] [place] [address] 05/27/2024 1:00 PM EDT Office Visit [facility] [address] [place] [address] Abdiel, Kaci, OD 230 [place] [address] documented as of this encounter Goals Goal [...] documented as of this encounter Care Teams Expansion Joint Finisher Relationship Specialty Start Date End Date Balaji Quinones MD [address] [place] [address] PCP - General Internal Medicine 11/25/13 Kristi Giles, Quentin [address] [place] [address] Pharmacist Internal Medicine 01/30/22 documented as of this encounter
--- OUTSIDE RECORDS SUMMARY | 2024-05-08 17:51 | XMS_ITS | Encounter Summary ---
Author Organization [employer] Address [address] [facility] [address] 7t [place] [address] Care Team Providers Care Archivist Political History Name Role Phone Balaji Quinones MD Primary Care Provide r Kristi Giles PharmD Unavailable [phone] Encounter Details Date Type Department Care Team [...] is impossible for me to know from Done In :60 Seconds documented in this encounter Plan of Treatment Upcoming Encounters Date Type Department Care Team (Late st Contact Info) Description 05/15/2024 11:00 AM EDT Office Visit [facility] 230 [place] [address] Balaji Quinones MD 230 [place] [address] 05/27/2024 1:00 PM EDT Office Visit [facility] [address] [place] [address] Abdiel, Kaci, OD 230 [place] [address] documented as of this encounter Goals Goal [...] (Free>4and<10) 49.69(H ) 0.00 - 4.00 ng/mL [facility] Comment:A Free PSA was not p [...] Provider LAB BLOOD ORDERAB LES Final Result [facility] [address] [place] [phone] documented in this encounter Visit Diagnoses Not on filedocumented in this encounter Additional Health Concerns Assessment Noted Time PHQ-9 Depression Total Score: 1 04/19/19 24 1:30 PM EST documented as of this encounter Care Teams Archivist Political History Relationship Specialty Start Date End Date Balaji Quinones MD 230 [place] [address] PCP - General Internal Medicine 11/25/13 Kristi Giles PharmD [address] [place] [address] Pharmacist Internal Medicine 01/30/22 documented as of this encounter
--- OUTSIDE RECORDS SUMMARY | 2024-05-08 17:51 | XMS_ITS | Encounter Summary ---
Author Organization [employer] Address 75 [facility] 7t [place] [address] Care Team Providers Care Adapted Physical Education Specialist Name Role Phone Balaji Quinones MD Primary Care Provide r Kristi Giles PharmD Unavailable [phone] Reason for Visit * Reason Comments Med Refill Encounter Details Date Type Department Care Team (Late Contact Info) Description 05/11/2022 Refill [facility] 230 [place] [address] Balaji Quinones MD [address] [place], [place] [phone] Swelling of right middle finger Social History [...] Description 05/15/2024 11:00 AM EDT Office Visit [facility] [address] [place] [address] Balaji Quinones MD [address] [place], [place] [phone] 05/27/2024 1:00 PM EDT Office Visit [facility] [address] [place] [address] Kaci Meadows, OD 230 [place] [address] documented as of this encounter Goals Goal [...] finger documented in this encounter Care Teams Adapted Physical Education Specialist Relationship Specialty Start Date End Date Balaji Quinones MD [address] [place] [address] PCP - General Internal Medicine 11/25/13 Kristi Giles PharmD [address] [place] [address] Pharmacist Internal Medicine 01/30/22 documented as of this encounter
--- OUTSIDE RECORDS SUMMARY | 2024-05-08 17:51 | XMS_ITS | Encounter Summary ---
Author Organization [email or web address] Address [address] [facility] [address] 7[address] [place] [address] Care Team Providers Care Digital Advisor Name Role Phone Balaji Quinones MD Primary Care Provide r Kristi Giles PharmD Unavailable [phone] Reason for Visit * Reason Comments Med Refill Encounter Details Date Type Department Care Team ([facility] st Contact Info) Description 04/19/2023 Refill [facility] [address] [place] [address] Balaji Quinones MD [address] [place] [address] Primary hypertension; Folliculitis Social History Tobacco Use [...] 05/15/2024 11:00 AM EDT Office Visit [facility] [address] [place] [address] Balaji Quinones MD [address] [place] [address] 05/27/2024 1:00 PM EDT Office Visit [facility] [address] [place] [address] Abdiel, Kaci, OD 230 [place] [address] documented as of this encounter Goals Goal [...] documented as of this encounter Care Teams Digital Advisor Relationship Specialty Start Date End Date Balaji Quinones MD [address] [place] [address] PCP - General Internal Medicine 11/25/13 Kristi Giles, SarayD [address] [place] [address] Pharmacist Internal Medicine 01/30/22 documented as of this encounter
--- OUTSIDE RECORDS SUMMARY | 2024-05-08 17:51 | XMS_ITS | Encounter Summary ---
Author Organization [employer] Address 75 [facility] 7t [place] [address] Care Team Providers Care Asp Web Developer Name Role Phone Balaji Quinones MD Primary Care Provide r Kristi Giles PharmD Unavailable [phone] Reason for Visit * Reason Comments Med Refill Encounter Details Date Type Department Care Team (Late Contact Info) Description 04/17/2022 Refill [facility] [address] [place] [address] Brook Guerrero MD [address] [place], [place] [phone] Other chronic pain Social History Tobacco Use [...] 05/15/2024 11:00 AM EDT Office Visit [facility] [address] [place] [address] Balaji Quinones MD [address] [place], [place] [phone] 05/27/2024 1:00 PM EDT Office Visit [facility] [address] [place] [address] Kaci Meadows, OD 230 [place] [address] documented as of this encounter Goals Goal [...] pain documented in this encounter Care Teams Asp Web Developer Relationship Specialty Start Date End Date Balaji Quinones MD 230 [place] [address] PCP - General Internal Medicine 11/25/13 Kristi Giles PharmD [address] [place] [address] Pharmacist Internal Medicine 01/30/22 documented as of this encounter
--- OUTSIDE RECORDS SUMMARY | 2024-05-08 17:51 | XMS_ITS | Encounter Summary ---
Author Organization [employer] Address 75 [facility] 7t [place] [address] Care Team Providers Care Urgent Care Technician Name Role Phone Balaji Quinones MD Primary Care Provide r Kristi Giles PharmD Unavailable [phone] Reason for Referral * Consultation (Urgent) - Closed Specialty Diagnoses / Procedures Referred By Yaya aponte Referred To Contact Pulmonary Disease Diagnoses Mass in neck Balaji Quinones MD [address] [place] [address] Phone: tel: fax: Ki Castaneda [address] [place] [address] Phone: tel: Referral ID Status Reason Start Date Expiration Date V isits Requested Visits Authorized [id number] Closed Specialty Services Required 04/14/2024 04/14/2025 1 1 Encounter Details Date Type Department Care Team (Late st Contact Info) Description 04/14/2024 Orders Only [facility] [address] [place] [address] Balaji Quinones MD [address] [place] [address] Mass in neck (Primary Dx) Social History [...] 11:00 AM EDT Office Visit [facility] [address] [place] [address] Balaji Quinones MD [address] [place] [address] 05/27/2024 1:00 PM EDT Office Visit [facility] OPT[facility] [address] [place] [address] Kaci Meadows, HANY [address] [place] [address] Scheduled Referrals Name Type Priority Associated Diagnoses [...] EDT Narrative 04/23/2024 12:50 PM EDT ? [facility] ?[address] ?[place] [address] ? Magnetic Resonance Report ? Signed ? Patient: Alonso,Paul ?MR#: [id number] ?? 32 ? : 1955 ?Acct:[id number] ? Age/Sex: 68 / M ?ADM Date: 03/12/25 ? Loc: HO.MRI ? Attending Dr: Jessica Palacios MD ? Ordering Physician: Jessica Palacios MD ?? Date of Service: 04/23/24 ?? Procedure(s): MR head/brain wo/w con ?? Accession Number(s): [id number] ? cc: Balaji Sanderson MD; Jessica Palacios [...] 12:47 PM ?? EDT ? Dictated By: ?uAstin Castañeda MD ? Signed By: ?<Electronically signed by Austin Kirk MD in OV> ? 04/23/24 1247 ? DD/ 1050 ? TD/TT: 04/23/24 1115 ? Shopper Marketing Manager: ? Procedure Note Xenia Gilliam - 04/23/2024 [id number] [place] [address] Magnetic Resonance Report Signed Patient: Leonela AlonsoReji#: [id number] 32 : 5Acct:[id number] Age/Sex: 68 / MADM Date: 04/23/24 Loc: HO.MRI Attending Dr: Jessica Palacios MD Ordering Physician: Jessica Palacios MD Date of Service: 04/23/24 Procedure(s): MR head/brain wo/w con Accession Number(s): [id number] cc: Balaji Sanderson MD; Jessica Palacios MD [...] 04/23/24 1247 DD/ 1050 TD/TT: 04/23/24 1115 Shopper Marketing Manager: [facility] External Provider IMG MRI PROCEDURES Final Result documented in this encounter Visit Diagnoses Diagnosis Mass in neck- Primary documented in this encounter Additional Health Concerns Assessment Noted Time PHQ-9 Depression Total Score: 1 04/19/19 24 1:30 PM EST documented as of this encounter Care Teams Urgent Care Technician Relationship Specialty Start Date End Date Balaji Quinones MD [address] [place] [address] PCP - General Internal Medicine 11/25/13 Kristi Giles PharmD [address] [place] [address] Pharmacist Internal Medicine 01/30/22 documented as of this encounter
--- OUTSIDE RECORDS SUMMARY | 2024-05-08 17:51 | XMS_ITS | Encounter Summary ---
Author Organization [employer] Address [address] [facility] 7t [place] [address] Care Team Providers Care Sustainability Engineer Name Role Phone Balaji Quinones MD Primary Care Provide r Kristi Giles PharmD Unavailable [phone] Encounter Details Date Type Department Care Team (Late Contact Info) Description 09/08/2022 [facility] Health Information Management 230 [place] [address] Balaji Quinones MD [address] [place] [address] Social History Tobacco Use Types Packs/Day Years [...] Description 05/15/2024 11:00 AM EDT Office Visit [facility] [address] [place] [address] Balaji Quinones MD [address] [place] [address] 05/27/2024 1:00 PM EDT Office Visit [facility] OPT[facility] [address] [place], [place] [phone] Kaci Meadows, OD [address] [place] [address] documented as of this encounter Goals Goal [...] on filedocumented in this encounter Care Teams Sustainability Engineer Relationship Specialty Start Date End Date Balaji Quinones MD [address] [place] [address] PCP - General Internal Medicine 11/25/13 Kristi Giles PharmD [address] [place] [address] Pharmacist Internal Medicine 01/30/22 documented as of this encounter
--- OUTSIDE RECORDS SUMMARY | 2024-05-08 17:51 | XMS_ITS | Encounter Summary ---
Author Organization [employer] Address [address] [facility] 7t [place] [address] Care Team Providers Care Flower Arranger Name Role Phone Balaji Quinones MD Primary Care Provide r Kristi Giles PharmD Unavailable [phone] Encounter Details Date Type Department Care Team (Late st Contact Info) Description 01/28/2022 Abstract [facility] [address] [place] [address] Kristi Giles, PharmD [address] [place] [address] Social History Tobacco Use Types Packs/Day Years [...] Description 05/15/2024 11:00 AM EDT Office Visit [facility] [address] [place] [address] Balaji Quinones MD [address] [place] [address] 05/27/2024 1:00 PM EDT Office Visit [facility] OPT[facility]ET[facility] [address] [place] [address] Kaci Meadows, OD [address] [place] [address] documented as of this encounter Goals Goal [...] on filedocumented in this encounter Care Teams Flower Arranger Relationship Specialty Start Date End Date Balaji Quinones MD [address] [place] [address] PCP - General Internal Medicine 11/25/13 Kristi Giles PharmD [address] [place] [address] Pharmacist Internal Medicine 01/30/22 documented as of this encounter
--- OUTSIDE RECORDS SUMMARY | 2024-05-08 17:52 | XMS_ITS | Clinical Summary ---
Author Organization [id number] Address [address] [facility] 7[address] [place] [address] Care Team Providers Care Gas Engineer Name Role Phone Balaji Quinones MD Primary Care Provide r Kristi Giles PharmD Unavailable [phone] Allergies No known active allergies Medications sertraline [...] 2 diabetes mellitus without complication, unspecified whether skilled nursing insulin use ([facility]) TAKE 1 TABLET BY MOUTH ONCE DAILY WITH BREAKFAST DO NOT BREAK, CRUSH, DISSOLVE OR CHEW 90 tablet 1 11/14/19 24 Active glucose blood (FREESTYLE LITE) test stripIndications: Type 2 diabetes mellitus with hyperlipidemia ([facility]/HCC) ([facility]) TEST BLOOD SUGAR ONCE DAILY 100 each 12/28/19 24 Active TRUEplus Lancets 33G miscIndications:T ype 2 diabetes mellitus with hyperlipidemia ([facility]) ([facility]) TEST BLOOD SUGAR ONCE DAILY ICD10= 100 each 12/28/19 24 Active metFORMIN (Glucophage) 1000 MG tabletIndications :Type 2 diabetes mellitus without complication, unspecified whether skilled nursing insulin use ([facility]) TAKE 1 TABLET BY MOUTH TWICE [...] 2 diabetes mellitus without complication, unspecified whether skilled nursing insulin use ([facility]) Take 1 tablet (45 mg) by [...] abrasions on knees and left wrist. His lcvzurem-je-wag brought him to [facility]. Denied headache, chest pain, SOB, n/v/d, or recent illness. States has many year h/o similar recurrent episodes of dizziness that he cannot describe, occasionally falls. ECG today shows sinus arrythmia, IVCD, PACs. Pt tells me he already has a follow up scheduled with Dr. Peres his edge grinder machine Plan: Obtain ECHO, ECG, EEG. CT of [...] Department Care Team Description 05/06/2024 Patient Outreach [facility] [address] [place] [address] [place] [address] Balaji Quinones MD Pre-visit Planning (Pre-visit planning - LVM ) 05/05/2024 Orders Only GENERIC EXTERNAL DATA DEPARTMENT Provider, Generic External Data 05/04/[address] [facility] [address], [place] [address] Balaji Quinones MD Med Refill 05/01/2024 Orders Only [facility] [address], [place] [address] Balaji Quinones MD Hypokalemia (Primary Dx) 05/01/[address] [facility] [address], [place] [address] Balaji uQinones MD Chart Prep 05/01/[address] [facility] [address], [place] [address] Raquel Kirk, RN Appointment Request 04/30/[address] [facility] [address], [place] [address] Balaji Quinones MD Tinea pedis of both feet 04/28/2024 Orders Only GENERIC EXTERNAL DATA DEPARTMENT Provider, Generic External Data 04/20/[address] [facility] [address], [place] [address] Balaji Quinones MD 04/16/[address] [facility] [address], [place] [address] Balaji Quinones MD Dermatitis of lower extremity 04/15/[address] [facility] [address], [place] [address] Balaji Quinones MD Results 04/14/2024 Orders Only [facility] [place] [address] Balaji Quinones MD Mass in neck (Primary Dx) 04/03/[address] [facility] [address], [place] [address] Balaji Quinones MD Results 03/25/[address] [facility] [address] [place] [address] Balaji Quinones MD Primary hypertension 03/14/[address] [facility] [address], [place] [address] Balaji Quinones MD Dry eyes 03/06/[address] [facility] [address] [place] [address] Pam Lemons MD Tinea pedis of both feet 02/27/[address] [facility] [address] [place] [address] Balaji Quinones MD FYI 02/20/[address] [facility] [address], [place] [address] Balaji Quinones MD Dermatitis of lower extremity 02/14/2024 11:30 AM EST Office Visit [facility] [address], [place] [address] Balaji Quinones MD Primary hypertension (Primary Dx); Type 2 diabetes mellitus without complication, without long-term current use of insulin (CMS/HCC); Aneurysm of ascending aorta without rupture (CMS/HCC); Syncope, unspecified syncope type; Type 2 diabetes mellitus without complication, unspecified whether skilled nursing insulin use (CMS/HCC); Iron deficiency anemia, unspecified iron deficiency anemia type; Hypertension, unspecified type; Mixed hyperlipidemia 02/14/[address] [facility] [place] [address] Balaji Quinones MD 02/14/[address] [facility] [address], [place] [address] Balaji Quinones MD Appointment Confirmation 02/14/2024 Travel 02/14/[address] [facility] [address], [place] [address] Balaji Quinones MD Mixed hyperlipidemia; Type 2 diabetes mellitus without complication, unspecified whether skilled nursing insulin use (CMS/HCC); Iron deficiency anemia, unspecified [...] 11:00 AM EDT Office Visit [facility] [address] [place] [address] Balaji Quinones MD [address] [place] [address] 05/27/2024 1:00 PM EDT Office Visit [facility] [address] [place] [address] Kaci Meadows, OD [address] [place] [address] Health Maintenance Due Date Last Done Comments [...] PANEL Routine 05/05/2024 9:25 AM EDT Hypokalemia PSA STAIN Routine 04/28/2024 2:20 PM EDT GRAM STAIN Routine 04/28/2024 2:20 PM EDT [...] (Free>4and<10) 49.69(H ) 0.00 - 4.00 ng/mL [facility] Comment:A Free PSA was not [...] Provider LAB BLOOD ORDERAB LES Final Result [facility] [address] [place] [address] [phone] * (ABNORMAL) Basic Metabolic Panel (05/05/2024 9:25 AM EDT) Only the most recent of2 resultswithin the time period is included. Sodium 135 135 - 145 mmol/L [facility] Potassium 4.4 3.3 - 5.1 mmol/L [facility] Chloride 101 96 - 108 mmol/L [facility] Carbon Dioxide 30(H) 22 - 29 mmol/L [facility] Anion Gap 8(L) 12 - 20 [facility] Urea Nitrogen (BUN) 4(L) 9 - 16 mg/dL [facility] Creatinine, Serum 0.75 0.5 - 1.4 mg/dL [facility] Estimated Glomerular Filt Rate >60 [facility] Comment:Chronic Kidney Disea se: Estimated GFR < 60 mL/min/1.64c4Jzpbof Kidney Disease: Estimated GFR < 15 mL/min/1.73m2 Glucose 176(H) 60 - 115 mg/dL [facility] Calcium 8.6 8.4 - 10.2 mg/dL [facility] Blood Venous blood specimen / Unknown 05/05/2024 9:25 AM EDT 05/05/2024 11:36 AM EDT us Balaji Donnelly MD LAB BLOOD ORDERABLES Final Result [facility] [address] [place] [address] [phone] * PSA Stain (04/28/2024 2:20 PM EDT) 04/28/2024 2:20 PM EDT 04/28/2024 2:52 PM EDT Narrative [facility] - 05/08/2024 1:35 PM EDT ----- ------- Name: Paul Alonso ? Age/Sex: 68/M ? : 1955 Unit#: [id number] ?? Attend Dr: Ki Castaneda MD ?Re04/28/24 ?Status: DEP SDC ? Location: HO.SSS ?Disch: ? ----- ------- SPEC : [id number] ? RECD: 04/28/24-1451 ? STATUS: ??SOUT ? REQ NUM: [id number] ? REX: 04/28/24-1420 ? SUBM DR: Ki Castaneda MD ? ENTERED: ??04/28/24-1453 ?SP TYPE: Cytology ? OTHR DR: Balaji Sanderson MD ?? ORDERED: ??PSA Stain, Fine Ndl Asp, Cytokeratin, S 100, Synaptophysin, Cyto- enhanced, ?Chromogranin, IHC, Add. immunos/14, Multiplex IHC, CD68, CDX-2, MOC-31, p40, ?PAX-8, PIN4, TTF-1 COMMENTS: Cell Block B sent to [facility] for multiple IHC's on 05/01/24. ? Diagnosis ?? A. ??Lung, bronchial washings: ??Negative for malignant cells. ? COMMENT: ??Review of the cytology preparation demonstrates a cellular specimen composed of ?? benign bronchial cells and alveolar macrophages. The cell block shows similar findings. ?? No evidence of malignancy is seen. ? B. 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 ? COMMENT: ??Review of the cytology preparation demonstrates a cellular aspirate composed of ?? rounded nests of tumor cells with relatively small, uniform nuclei with moderate to ?? abundant foamy cytoplasm and mildly pleomorphic nucleoli. The cell block shows similar ?? findings. Necrosis is not seen. The immunohistochemical stain profile shows the tumor ?? cells to be diffusely and strongly positive for PSA, AMACR, MOC-31, and jolly-cytokeratin ?? while negative for CK7, CK20, synaptophysin, chromogranin, CD56, TTF-1, CD20, PAX-8, ?? CD68, p40, S100, CDX2, and CD117, supporting the above diagnosis. ?Clinical History Mediastinal mass ?Microscopic Description Microscopic sections reviewed. ? Material Received ?? A. Bronchial washings ?? B. FNA 4R lymph node ? Gross Description Received in 2 parts. A. Received is 40 cc of blood tinged saline with minute flecks of red tissue from which a ThinPrep slide and cell block are prepared. B. Received is 32 cc of blood tinged cytolyt with minute flecks of red tissue from which a ThinPrep slide and cell block are prepared. Also received are four direct smear slides with ? CONTINUED ON NEXT PAGE ----- ------- Name: Paul Alonso ? Age/Sex: 68/M ? : 1955 Unit#: [id number] ?? Attend Dr: iK Castaneda MD ?Re04/28/24 ?Status: DEP [facility] [place] [facility] [place] ? Location: HO.SSS ?Disch: ? ----- ------- SPEC : [id number] ? RECD: 04/28/24-1451 ? STATUS: ??SOUT ? REQ NUM: [id number] ? REX: 04/28/24-1420 ? SUBM DR: Ki Castaneda MD ? ENTERED: ??04/28/24-1453 ?SP TYPE: Cytology ? OTHR DR: Balaji Sanderson MD ?? ORDERED: ??PSA Stain, Fine Ndl Asp, Cytokeratin, S 100, Synaptophysin, Cyto- enhanced, ?Chromogranin, IHC, Add. immunos/14, Multiplex IHC, CD68, CDX-2, MOC-31, p40, ?PAX-8, PIN4, TTF-1 COMMENTS: Cell Block B sent to [facility] for multiple IHC's on 05/01/24. ? Gross Description ?(Continued) the intraoperative diagnosis as follows: 1st pass: ??Few bronchial cells present. 2nd pass: ??Adequate; lesional cells present. AR, 04/28/2024 ([facility]) This case was reviewed intradepartmentally. Special stains ordered and performed: ??Immunostains for synaptophysin, chromogranin, Ki-67, TTF-1, MOC-31, CD20, CD56, CK20, CK7, PAX8, CD68, jolly-cytokeratin, p40, S100, PSA, CDX2, CD117 on cell block B; special stain PAS on cell block. Technical services for CD20, CD56, chromogranin, MOC31, CK20, CK7, CK20, synaptophysin and TTF-1 immunohistochemistry studies performed at [employer] [address] Jennifer [place], [place]; [place] #[id number] Copies To: ?? Balaji Sanderson MD ?? [facility] ?? [address] ?? [place] [address] ?? [phone] ?? Ki Castaneda MD ?? [facility] ?? [address] ?? [place] [address] ?? [phone] ----- ------- Signed (signature on file) Malini Qauch MD 05/08/24 0815 ? ----- ------- ? END OF REPORT ? us Generic External Data Provider LAB PATHOLOGY ORD ERABLES Final Result [facility] [address] [facility] [place] [address] [phone] * Gram stain (04/28/2024 2:20 PM EDT) 04/28/2024 2:20 PM EDT 04/29/2024 8:42 AM EDT Comment:[facility] Narrative [facility] - 04/29/2024 8:50 AM EDT Test not performed Routine Culture Test not performed Unable to perform culture due to laboratory error. Sample already processed by the pathology department. Specimen Source: Bronchial Washings us Generic External Data Provider LAB MICROBIOLOGY - GENERAL ORDERABLES Final Result Performing Organization Address [facility] de Phone Number [facility] [address] [place] [address] [phone] * (ABNORMAL) Glucose, Whole Blood (04/28/2024 10:28 AM EDT) Glucose, Whole Blood 166(H) 60 - 115 mg/dL [facility] Comment:METER #: [id number] 04/28/2024 10:2 8 AM EDT 04/28/2024 10:33 AM EDT us Generic External Data Provider LAB BLOOD ORDERAB LES Final Result Performing Organization Address [facility] Co de Phone Number [facility] [address] [place] [address] [phone] * Mr Brain w/ and w/o Contrast (04/23/2024 10:50 AM EDT) Anatomical Region Laterality Modality Brain Magnetic Resonan ce 04/23/2024 10:5 0 AM EDT Narrative 04/23/2024 12:50 PM EDT ? [facility] ?[address] ?[place] [address] ? Magnetic Resonance Report ? Signed ? Patient: Alonso,Paul ?MR#: [id number] ?? 33 ? : 1955 ?Acct:[id number] ? Age/Sex: 68 / M ?ADM Date: 04/23/ ? Loc: HO.MRI ? Attending Dr: Jessica Palacios MD ? Ordering Physician: Jessica Palacios MD ?? Date of Service: 04/23/24 ?? Procedure(s): MR head/brain wo/w con ?? Accession Number(s): [id number] ? cc: Balaji Sanderson MD; Jessica Palacios [...] DD/ 1050 ? TD/TT: 04/23/24 1115 ? Residence Leasing Agent: ? Procedure Note Tawana, Image - 04/23/[address] [address] Magnetic Resonance Report Signed Patient: Jayda Alonso#: [id number] 33 : 5Acct:[id number] Age/Sex: 68 / MADM Date: 04/23/24 Loc: HO.MRI Attending Dr: Jessica Palacios MD Ordering Physician: Jessica Palacios MD Date of Service: 04/23/24 Procedure(s): MR head/brain wo/w con Accession Number(s): [id number] cc: Balaji Sanderson MD; Jessica Palacios MD [...] Austin Tejeda MD 04/23/2024 12:47 PM EDT Dictated By: Austin Castañeda MD Signed By: <Electronically signed by Austin Kirk MDin OV> 04/23/24 1247 DD/ 1050 TD/TT: 04/23/24 1115 Residence Leasing Agent: [facility] External Provider IMG MRI PROCEDURES Final Result * Referral to Neurology (04/10/2024) Balaji Donnelly MD OUTPATIENT REFERRAL O RDERABLES Final Result * CTA Chest w/ and w/o Contrast (04/03/2024 12:33 PM EST) Anatomical Region Laterality Modality Body, Chest Computed Tomogra phy 04/03/2024 12:3 3 PM EST Narrative 04/03/2024 12:34 PM EST ? [facility] ?[address] ?[place] [address] ? CT Scan Report ? Signed with Addenda ? Patient: Alonso,Paul ?MR#: [id number] ?? 33 ? : 1955 ?Acct:[id number] ? Age/Sex: 68 / M ?ADM Date: 04/03/24 ? Loc: HO.CT ? Attending Dr: Balaji Sanderson MD ? Ordering Physician: Balaji Sanderson MD ?? Date of Service: 04/03/24 ?? Procedure(s): CT angio chest aorta ?? Accession Number(s): [id number] ? cc: Balaji Sanderson MD ? Report Number: ?? [id number]: Total DLP = ??212.27 mGy-cm ?ADDENDUM ?? [...] DD/ 1233 ? TD/TT: 04/03/24 1233 ? Residence Leasing Agent: ? Procedure Note Xenia Gilliam - 04/04/[address] [place] [address] [address] Scan Report Signed with Addenda Patient: Jayda Alonso#: [id number] 33 : 5Acct:[id number] Age/Sex: 68 / MADM Date: 04/03/24 Loc: HO.CT Attending Dr: Balaji Sanderson MD Ordering Physician: Balaji Sanderson MD Date of Service: 04/03/24 Procedure(s): CT angio chest aorta Accession Number(s): [id number] cc: Balaji Sanderson MD Report Number: [id number]: Total DLP = 212.27 mGy-cm ADDENDUM This [...] 04/03/24 1234 DD/ 1233 TD/TT: 04/03/24 1233 Residence Leasing Agent: us Balaji Donnelly MD IMG CT PROCEDURES Jaspal tennille Result - Final * CT Head w/o Contrast (04/03/2024 10:11 AM EST) Anatomical Region Laterality Modality Head, Neck Computed Tomogra phy 04/03/2024 10:1 1 AM EST Narrative 04/03/2024 10:12 AM EST ? [facility] ?[address] ?[place] [address] ? CT Scan Report ? Signed ? Patient: Alonso,Paul ?MR#: [id number] ?? 33 ? : 1955 ?Acct:[id number] ? Age/Sex: 68 / M ?ADM Date: 04/03/24 ? Loc: HO.CT ? Attending Dr: Balaji Sanderson MD ? Ordering Physician: Balaji Sanderson MD ?? Date of Service: 04/03/24 ?? Procedure(s): CT head/brain wo IV con ?? Accession Number(s): [id number] ? cc: Balaji Sanderson MD ? Report Number: ?? [id number]: Total DLP = ??672.66 mGy-cm ? CLINICAL HISTORY: syncope ? CT head without contrast ? Comparison: None ? Findings: ?? No intra-axial mass, midline shift, hydrocephalus, or acute hemorrhage. ?? Drvn-fl-uthdvyul age-related cerebral hemispheric white matter changes. ?? [...] DD/ 1011 ? TD/TT: 04/03/24 1011 ? Residence Leasing Agent: ? Procedure Note Donotuseinterpreter, Image - 04/03/[address] [address] [address] Scan Report Signed Patient: Jayda Alonso#: [id number] 33 : 5Acct:[id number] Age/Sex: 68 / MADM Date: 04/03/24 Loc: HO.CT Attending Dr: Balaji Sanderson MD Ordering Physician: Balaji Sanderson MD Date of Service: 04/03/24 Procedure(s): CT head/brain wo IV con Accession Number(s): [id number] cc: Balaji Sanderson MD Report Number: [id number]: Total DLP = 672.66 mGy-cm CLINICAL HISTORY: syncope CT head without contrast Comparison: None Findings: No intra-axial mass, midline shift, hydrocephalus, or acute hemorrhage. Qprf-ju-gometjpt age-related cerebral hemispheric white matter changes. Small [...] 04/03/24 1012 DD/ 1011 TD/TT: 04/03/24 1011 Residence Leasing Agent: us Balaji Donnelly MD IMG CT PROCEDURES [...] 1:23 PM EDT) Triglycerides 158(H) <150 mg/dL [facility] Comment:Desirable Triglyceri de: less than 150 mg/dLBorderline High Triglyceride 150-199 mg/dLHigh Triglyceride: 200-499 mg/dLVery High Triglyceride: greater than or equal to 5OO mg/dL Cholesterol 127 <200 mg/dL [facility] Comment:Desirable Cholestero l: less than 200 mg/dLBorderline High Cholesterol: 200-239 mg/dLHigh Cholesterol: greater than 239 mg/dL LDL Cholesterol Calculated 66 <100 mg/dL [facility] Comment:Desirable LDL: less than 100 mg/dLNear Optimal/Above Optimal LDL: 110- 129 mg/dLBorderline High LDL: 130-159 mg/dLHigh LDL: 160-189 mg/dLVery High LDL: greater than or equal to 190 mg/dL HDL Cholesterol 30(L) >40 mg/dL [facility] Comment:Desirable HDL: great er than 40 mg/dL Note: This HDL assay may give artificially low results in patients with liver disease. Blood 06/19/2023 1:23 PM EDT 06/19/2023 4:12 PM EDT Balaji Donnelly MD LAB BLOOD ORDERABLES Final Result Performing Organization Address [facility]/ZIP Co de Phone Number [facility] [address] [place] [phone] * Albumin, Random Urine W/Creatinine (06/19/2023 12:00 AM EDT) Creatinine, Urine 137.18 mg/dL [facility] Microalbumin Urine 21.0 mg/L [facility] Microalbum Creatinine Ratio Ur 15.3 <30 ug/mg cr [facility] Comment:Albumin/Creatinine R atio Reference Ranges: Normal: < 30 ug/mg creatinine Microalbuminuria: 30 - 300 ug/mg creatinineClinical Albuminuria: > 300 ug/mg creatinine Urine (Urine, Random) 06/19/2023 06/19/2023 Balaji Donnelly MD LAB URINE ORDERABLES Final Result Performing Organization Address [facility] Co de Phone Number [facility] [address] [place] [phone] * Hepatitis C Antibody with Reflex to HCV, RNA, Quantitative, Real-Time PCR (07/05/2022 8:13 AM EDT) Hepatitis C Antibody NON-REACT MADDY NON-REACT MADDY Lalat Index 0.04 <1.00 Lalat Comment: HCV antibody was non-reactive. There is no laboratory evidence of HCV infection. In most cases, no further action is required. However, if recent HCV exposure is suspected, a test for HCV RNA (test code 08972) is suggested. For additional information please refer to http://education.Autrement (HotelHotel).Brainomix/faq/KDY53l4 (This link is being provided for informational/ educational purposes only.) Blood Venous blood specimen / Unknown 07/05/2022 8:13 AM EDT 07/05/2022 8:14 AM EDT [facility] - 07/06/2022 11:54 AM EDT FASTING:YES FASTING: YES Balaji Donnelly MD LAB BLOOD ORDERABLES Final Result [facility] [address], [place] [address] [facility] [address] [place] [address] * Colonoscopy (07/10/2017) Pathologist [facility] Colonoscopy Normal Normal 07/10/2017 Shikha Morel - 07/10/2017 3:47 PM EDT Recommended 10 year follow up ( [facility] [place] Historical Provider HEALTH MAINTENANCE Final Result from Last 3 Months or Most Recently Relevant to Health Maintenance Insurance [employer] Care Teams Gas Engineer Relationship Specialty Start Date End Date Balaji Quinones MD [address] [place] [phone] PCP - General Internal Medicine 11/25/13 Kristi Giles, Quentin [address] [place] [phone] Pharmacist Internal Medicine 01/30/22
--- OUTSIDE RECORDS SUMMARY | 2024-05-08 17:52 | XMS_ITS | Encounter Summary ---
Author Organization [employer] Address [address] [facility] 7t [place] [address] Care Team Providers Care Tie Bucker Name Role Phone Balaji Quinones MD Primary Care Provide r Kristi Giles PharmD Unavailable [phone] Reason for Visit * Reason Comments Med Refill Encounter Details Date Type Department Care Team (Late st Contact Info) Description 03/08/2023 Refill [facility] [address] [place] [address] Balaji Quinones MD [address] [place] [address] Folliculitis Social History Tobacco Use Types Packs/Day [...] 11:00 AM EDT Office Visit [facility] [address] [place] [address] Balaji Quinones MD [address] [place] [address] 05/27/2024 1:00 PM EDT Office Visit [facility] [address] [place] [address] Kaci Meadows, OD [address] [place] [address] documented as of this encounter Goals Goal [...] follicles documented in this encounter Care Teams Tie Bucker Relationship Specialty Start Date End Date Balaji Quinones MD [address] [place] [address] PCP - General Internal Medicine 11/25/13 Kristi Giles PharmD [address] [place] [address] Pharmacist Internal Medicine 01/30/22 documented as of this encounter
--- OUTSIDE RECORDS SUMMARY | 2024-05-08 17:52 | XMS_ITS | Encounter Summary ---
Author Organization [employer] Address [address] [facility] [address]t [place] [address] Care Team Providers Care Special Warfare Combatant Crewman Name Role Phone Balaji Quinones MD Primary Care Provide r Kristi Giles PharmD Unavailable [phone] Reason for Visit * Reason Comments Med Refill Encounter Details Date Type Department Care Team (Late Contact Info) Description 01/28/2023 Refill [facility] [address] [place] [address] Balaji Quinones MD [address] [place] [phone] Social History Tobacco Use Types Packs/Day Years [...] Description 05/15/2024 11:00 AM EDT Office Visit [facility] [address] [place] [address] Balaji Quinones MD [address] [place] [address] 05/27/2024 1:00 PM EDT Office Visit [facility] [address] [place] [address] Abdiel, Kaci, OD [address] [place] [address] documented as of this encounter Goals Goal [...] on filedocumented in this encounter Care Teams Special Warfare Combatant Crewman Relationship Specialty Start Date End Date Balaji Quinones MD [address] [place] [address] PCP - General Internal Medicine 11/25/13 Kristi Giles PharmD [address] [place] [address] Pharmacist Internal Medicine 01/30/22 documented as of this encounter
--- OUTSIDE RECORDS SUMMARY | 2024-05-08 17:52 | XMS_ITS | Encounter Summary ---
Author Organization [employer] Address [address] [facility] 7t [place] [address] Care Team Providers Care Computational Linguist Name Role Phone Balaji Quinones MD Primary Care Provide r Kristi Giles PharmD Unavailable [phone] Reason for Visit * Reason Comments Med Refill Encounter Details Date Type Department Care Team (Late st Contact Info) Description 12/30/2022 Refill [facility] [address] [place] [address] Balaji Quinones MD [address] [place] [address] Tinea pedis of both feet Social History [...] Description 05/15/2024 11:00 AM EDT Office Visit [facility] [address] [place] [address] Balaji Quinones MD [address] [place] [address] 05/27/2024 1:00 PM EDT Office Visit [facility] [address] [place] [address] Kaci Meadows, OD 230 [place] [address] documented as of this encounter Goals Goal [...] feet documented in this encounter Care Teams Computational Linguist Relationship Specialty Start Date End Date Balaji Quinones MD [address] [place] [address] PCP - General Internal Medicine 11/25/13 Kristi Giles PharmD 230 [place] [address] Pharmacist Internal Medicine 01/30/22 documented as of this encounter
--- OUTSIDE RECORDS SUMMARY | 2024-05-08 17:52 | XMS_ITS | Encounter Summary ---
Author Organization [employer] Address [address] [facility] [facility] [address] 7t [place] [address] Care Team Providers Care Sandblast Carver Name Role Phone Balaji Quinones MD Primary Care Provide r Kristi Giles PharmD Unavailable [phone] Reason for Visit * Reason Comments Med Refill Encounter Details Date Type Department Care Team ([facility] st Contact Info) Description 04/30/2024 Refill [facility] [address] [place] [address] Balaji Quinones MD [address] [place] [address] Tinea pedis of both feet Social History [...] 05/15/2024 11:00 AM EDT [facility] [address] [place] [address] Balaji Quinones MD [address] [place] [address] 05/27/2024 1:00 PM EDT Office Visit [facility] [address] [place] [address] Kaci Meadows, OD [address] [place] [address] documented as of this encounter Goals Goal [...] documented as of this encounter Care Teams Sandblast Carver Relationship Specialty Start Date End Date Balaji Quinones MD 230 [place] [address] PCP - General Internal Medicine 11/25/13 Kristi Giles, Quentin [address] [place] [address] Pharmacist Internal Medicine 01/30/22 documented as of this encounter
--- OUTSIDE RECORDS SUMMARY | 2024-05-08 17:52 | XMS_ITS | Encounter Summary ---
Author Organization [employer] Address 75 [facility] 7t [place] [address] Care Team Providers Care Aircraft Inspector Name Role Phone Balaji Quinones MD Primary Care Provide r Kristi Giles PharmD Unavailable [phone] Reason for Visit * Reason Comments Med Refill Encounter Details Date Type Department Care Team (Late st Contact Info) Description 10/27/2022 Refill [facility] [address] [place] [address] Balaji Quinones MD [address] [place] [address] Dermatitis of lower extremity Social History Tobacco [...] 11:00 AM EDT Office Visit [facility] [address] [place] [address] Balaji Quinones MD [address] [place] [address] 05/27/2024 1:00 PM EDT Office Visit [facility] [address] [place] [address] Kaci Meadows, OD [address] [place] [address] documented as of this encounter Goals Goal [...] extremity documented in this encounter Care Teams Aircraft Inspector Relationship Specialty Start Date End Date Balaji Quinones MD [address] [place] [address] PCP - General Internal Medicine 11/25/13 Kristi Giles PharmD [address] [place] [address] Pharmacist Internal Medicine 01/30/22 documented as of this encounter
--- OUTSIDE RECORDS SUMMARY | 2024-05-08 17:52 | XMS_ITS | Encounter Summary ---
Author Organization [employer] Address [address] [facility] 7t [place] [address] Care Team Providers Care Cardiology Coordinator Name Role Phone Balaji Quinones MD Primary Care Provide r Kristi Giles PharmD Unavailable [phone] Reason for Visit * Reason Onset Date Comments Appointment Request 05/01/2024 Encounter Details Date Type Department Care Team ([facility] st Contact Info) Description 05/01/2024 Telephone [facility] [address] [place] [address] Raquel Kirk RN 230 [place] [address] Appointment Request Social History Tobacco Use Types [...] at this time. * Telephone Encounter - Rqauel Kirk RN - 05/01/2024 9:42 AM EDT Reviewed Knowta. Pt did not have potassium recheck. He was given Potassium 10mg IV prior to his surgery. Scanned in those orders under Media tab DOS 04/28/24. Telephone call placed to pt utilizing [facility] #[id number]. Pt confirmed that they did not do [...] critical lab 04/28/2024 K 2.9 done at [facility]. Please see if he had a repeat [facility]. It appears this was done during a procedure. Also make sure he has a follow up appointment with me within a month if he does not have one documented in this encounter Plan of Treatment Upcoming Encounters Date Type Department Care Team (Late st Contact Info) Description 05/15/2024 11:00 AM EDT Office Visit [facility] [address] [place] [address] Balaji Quinones MD [address] [place] [address] 05/27/2024 1:00 PM EDT Office Visit [facility] [address] [place] [address] Kaci Meadows, OD 230 [place] [address] documented as of this encounter Goals Goal [...] documented as of this encounter Care Teams Cardiology Coordinator Relationship Specialty Start Date End Date Balaji Quinones MD [address] [place] [address] PCP - General Internal Medicine 11/25/13 Kristi Giles PharmD [address] [place] [address] Pharmacist Internal Medicine 01/30/22 documented as of this encounter
--- OUTSIDE RECORDS SUMMARY | 2024-05-08 17:52 | XMS_ITS | Encounter Summary ---
Author Organization [employer] Address 75 [facility] 7t [place] [address] Care Team Providers Care Competitive Shopper Name Role Phone Balaji Quinones MD Primary Care Provide r Kristi Giles PharmD Unavailable [phone] Reason for Visit * Reason Onset Date Comments Durable Medical Equipment 01/30/2023 Encounter Details Date Type Department Care Team (Late st Contact Info) Description 01/30/2023 Telephone [facility] [address] [place] [address] Balaji Quinones MD [address] [place] [address] Durable Medical Equipment Social History Tobacco Use [...] and taking falls. Please contact pt @ [phone] Tajik Speaker documented in this encounter Plan of Treatment Upcoming Encounters Date Type Department Care Team (Late st Contact Info) Description 05/15/2024 11:00 AM EDT Office Visit [facility] [address] [place] [address] Balaji Quinones MD [address] [place] [address] 05/27/2024 1:00 PM EDT Office Visit [facility] [address] [place] [address] Abdiel, Kaci, OD [address] [place] [address] documented as of this encounter Goals Goal [...] on filedocumented in this encounter Care Teams Competitive Shopper Relationship Specialty Start Date End Date Balaji Quinones MD 230 [place] [address] PCP - General Internal Medicine 11/25/13 Kristi Giles PharmD 230 [place] [address] Pharmacist Internal Medicine 01/30/22 documented as of this encounter
--- OUTSIDE RECORDS SUMMARY | 2024-05-08 17:52 | XMS_ITS | Encounter Summary ---
Author Organization [employer] Address 75 [facility] 7t [place] [address] Care Team Providers Care Premium Representative Name Role Phone Balaji Quinones MD Primary Care Provide r Kristi Giles PharmD Unavailable [phone] Reason for Visit * Reason Onset Date Comments Med Refill 01/30/2023 Encounter Details Date Type Department Care Team ([facility] st Contact Info) Description 01/30/2023 Telephone [facility] 230 [place] [address] Balaji Quinones MD [address] [place] [address] Med Refill Social History Tobacco Use Types [...] 81 MG EC tablet Please sent to [facility] - [place], [place] - [address] [facility] Pt is due on holidays but is requesting if medication could be given before than. documented in this encounter Plan of Treatment Upcoming Encounters Date Type Department Care Team (Late st Contact Info) Description 05/15/2024 11:00 AM EDT Office Visit [facility] [address] [place] [address] Balaji Quinones MD [address] [place] [address] 05/27/2024 1:00 PM EDT Office Visit [facility] [address] [place] [address] Abdiel, Kaci, OD 230 [place] [address] documented as of this encounter Goals Goal [...] on filedocumented in this encounter Care Teams Premium Representative Relationship Specialty Start Date End Date Balaji Quinones MD 230 [place] [address] PCP - General Internal Medicine 11/25/13 Kristi Giles, PharmD [address] [place] [address] Pharmacist Internal Medicine 01/30/22 documented as of this encounter
--- OUTSIDE RECORDS SUMMARY | 2024-05-08 17:52 | XMS_ITS | Encounter Summary ---
Author Organization [employer] Address 75 [facility] 7t [place] [address] Care Team Providers Care Supervisor Powder And Primer Canning Name Role Phone Balaji Quinones MD Primary Care Provide r Kristi Giles PharmD Unavailable [phone] Reason for Visit * Reason Comments Med Refill Encounter Details Date Type Department Care Team (Late st Contact Info) Description 10/27/2022 Refill [facility] 230 [place] [address] Clau Pascual ANP [address] [place] [address] Tinea pedis of both feet Social History [...] Description 05/15/2024 11:00 AM EDT Office Visit [facility] [address] [place] [address] Balaji Quinones MD 230 [place] [address] 05/27/2024 1:00 PM EDT Office Visit [facility] [address] [place] [address] Kaci Meadows, OD 230 [place] [address] documented as of this encounter Goals Goal [...] feet documented in this encounter Care Teams Supervisor Powder And Primer Canning Relationship Specialty Start Date End Date Balaji Quinones MD [address] [place] [address] PCP - General Internal Medicine 11/25/13 Kristi Giles PharmD [address] [place] [address] Pharmacist Internal Medicine 01/30/22 documented as of this encounter
--- OUTSIDE RECORDS SUMMARY | 2024-05-08 17:52 | XMS_ITS | Encounter Summary ---
Author Organization [employer] Address 75 [facility] 7t [place] [address] Care Team Providers Care Supply Aide Name Role Phone Balaji Quinones MD Primary Care Provide r Kristi Giles PharmD Unavailable [phone] Reason for Visit * Reason Comments Med Refill Encounter Details Date Type Department Care Team (Late Contact Info) Description 01/30/2023 Refill [facility] [address] [place] [address] Balaji Quinones MD [address] [place] [address] Social History Tobacco Use Types Packs/Day Years [...] Description 05/15/2024 11:00 AM EDT Office Visit [facility] [address] [place] [address] Balaji Quinones MD [address] [place] [address] 05/27/2024 1:00 PM EDT Office Visit [facility] [address] [place], [place] [phone] Kaci Meadows OD 230 [place] [address] documented as of this encounter Goals Goal [...] on filedocumented in this encounter Care Teams Supply Aide Relationship Specialty Start Date End Date Balaji Quinones MD [address] [place] [address] PCP - General Internal Medicine 11/25/13 Kristi Giles PharmD [address] [place] [address] Pharmacist Internal Medicine 01/30/22 documented as of this encounter
--- OUTSIDE RECORDS SUMMARY | 2024-05-08 17:52 | XMS_ITS | Encounter Summary ---
Author Organization [employer] Address 75 [facility] 7t [place] [address] Care Team Providers Care Potline Monitor Name Role Phone Balaji Quinones MD Primary Care Provide r Kristi Giles PharmD Unavailable [phone] Reason for Visit * Reason Comments Med Refill Encounter Details Date Type Department Care Team (Late Contact Info) Description 01/30/[address] [facility] [address] [place] [address] Balaji Quinones MD [address] [place] [address] Social History Tobacco Use Types Packs/Day Years [...] 05/15/2024 11:00 AM EDT Office Visit [facility] 230 [place] [address] Balaji Quinones MD [address] [place] [address] 05/27/2024 1:00 PM EDT Office Visit [facility] [address] [place], [place] [phone] Kaci Meadows OD 230 [place] [address] documented as of this encounter Goals Goal [...] on filedocumented in this encounter Care Teams Potline Monitor Relationship Specialty Start Date End Date Balaji Quinones MD 230 [place] [address] PCP - General Internal Medicine 11/25/13 Kristi Giles PharmD [address] [place] [address] Pharmacist Internal Medicine 01/30/22 documented as of this encounter
--- OUTSIDE RECORDS SUMMARY | 2024-05-08 17:52 | XMS_ITS | Encounter Summary ---
Author Organization [employer] Address [address] [facility] [address] 7t [place] [address] Care Team Providers Care Rattlesnake Farmer Name Role Phone Balaji Quinones MD Primary Care Provide r Kristi Giles PharmD Unavailable [phone] Encounter Details Date Type Department Care Team [...] critical lab 04/28/2024 K 2.9 done at [facility] [place] [place]. Please see if he had a repeat in [facility]. It appears this was done during a procedure. Also make sure he has a follow up appointment with me within a month if he does not have one documented in this encounter Plan of Treatment Upcoming Encounters Date Type Department Care Team (Late st Contact Info) Description 05/15/2024 11:00 AM EDT Office Visit [facility] 230 [place] [address] Balaji Quinones MD 230 [place] [address] 05/27/2024 1:00 PM EDT Office Visit [facility] [address] [place] [address] Abdiel, Kaci, OD 230 [place] [address] documented as of this encounter Goals Goal [...] Procedure Name Priority Date/Time Associated Diagnosis Comments PSA STAIN Routine 04/28/2024 2:20 PM EDT GRAM STAIN Routine 04/28/2024 2:20 PM EDT BASIC METABOLIC PANEL Routine 04/28/2024 10:43 AM EDT GLUCOSE, WHOLE BLOOD Routine 04/28/2024 10:28 AM EDT documented in this encounter Results * PSA Stain (04/28/2024 2:20 PM EDT) 04/28/2024 2:20 PM EDT 04/28/2024 2:52 PM EDT [facility] - 05/08/2024 1:35 PM EDT ----- ------- Name: Paul Alonso ? Age/Sex: 68/M ? : 1955 Unit#: [id number] ?? Attend Dr: Ki Castaneda MD ?Re04/28/24 ?Status: DEP SDC ? Location: HO.SSS ?Disch: ? ----- ------- SPEC : [id number] ? RECD: 04/28/24 ? STATUS: ??SOUT ? REQ NUM: [id number] ? REX: 04/28/24-1419 ? SUBM DR: Ki Castaneda MD ? ENTERED: ??04/28/24 ?SP TYPE: Cytology ? OTHR DR: Balaji [...] ? Age/Sex: 68/M ? : 1955 Unit#: [id number] ?? Attend Dr: Ki Castaneda MD ?Re04/28/24 ?Status: DEP SDC ? Location: HO.SSS ?Disch: ? ----- ------- SPEC : [id number] ? RECD: 04/28/24-1451 ? STATUS: ??SOUT ? REQ NUM: [id number] ? REX: 04/28/24-1420 ? SUBM DR: Ki [...] pass: ??Adequate; lesional cells present. [place], 04/28/2024 ([facility]) This case was reviewed intradepartmentally. Special stains ordered and performed: ??Immunostains for synaptophysin, chromogranin, Ki-67, TTF-1, MOC-31, CD20, CD56, CK20, CK7, PAX8, CD68, jolly-cytokeratin, p40, S100, PSA, CDX2, CD117 on cell block B; special stain PAS on cell block. Technical services for CD20, CD56, chromogranin, MOC31, CK20, CK7, CK20, synaptophysin and TTF-1 immunohistochemistry studies performed at [id number] Jennifer Arreguin, [place]; [facility] #[id number] Copies To: ?? Balaji Sanderson MD ?? [facility] ?? [address] ?? [place] [address] ?? [phone] ?? Ki Castaneda MD ?? [facility] [place] [place] Pulmonology Services ?? [address] ?? [place] [address] ?? [phone] ----- ------- Signed (signature on file) Malini Quach MD 05/08/24 1335 ? ----- ------- ? END OF REPORT ? us Generic External Data Provider LAB PATHOLOGY ORD ERABLES Final Result Performing Organization Address City/[facility]/ZIP Co de Phone Number [facility] [address] [place] [address] [phone] * Gram stain (04/28/2024 2:20 PM EDT) 04/28/2024 2:20 PM EDT 04/29/2024 8:42 AM EDT Comment:[facility] Wash Narrative [facility] - 04/29/2024 8:50 AM EDT Test not performed Routine Culture Test not performed Unable to perform culture due to laboratory error. Sample already processed by the pathology department. Specimen Source: Bronchial Washings Generic External Data Provider LAB MICROBIOLOGY - GENERAL ORDERABLES Final Result Performing Organization Address [facility] Co de Phone Number [facility] [address] [place] [address] [phone] * (ABNORMAL) Basic Metabolic Panel (04/28/2024 10:43 AM EDT) Sodium 138 135 - 145 mmol/L [facility] Potassium 2.9(LL) 3.3 - 5.1 mmol/L [facility] Comment:Critical value for P OTS: Results called to and read reynoldy: SANJU Person calling: TOMASEnedina Date: 04/28/24 Time: 1115 Chloride 99 96 - 108 mmol/L [facility] Carbon Dioxide 31(H) 22 - 29 mmol/L [facility] Anion Gap 11(L) 12 - 20 [facility] Urea Nitrogen (BUN) 9 9 - 16 mg/dL [facility] Creatinine, Serum 0.75 0.5 - 1.4 mg/dL [facility] Creatinine Clr Calc Pharmacy 71.7 [facility] Comment:eGFR (calculated fro m the MDRD study equation) and eCrCl(calculated from the Cockcroft-Gault equation) are based ondifferent parameters and may not yield comparable results.If eCrCl result is absurd, please check patient'sheight/weight. Estimated Glomerular Filt Rate >60 [facility] Comment:Chronic Kidney Disea se: Estimated GFR < 60 mL/min/1.70e4Rdeagg Kidney Disease: Estimated GFR < 15 mL/min/1.73m2 Glucose 158(H) 60 - 115 mg/dL [facility] Calcium 9.2 8.4 - 10.2 mg/dL [facility] 04/28/2024 10:4 3 AM EDT 04/28/2024 10:46 AM EDT Generic External Data Provider LAB BLOOD ORDERAB LES Final Result Performing Organization Address City/[facility]/ZIP Co de Phone Number [facility] [address] [place] [address] [phone] * (ABNORMAL) Glucose, Whole Blood (04/28/2024 10:28 AM EDT) Glucose, Whole Blood 166(H) 60 - 115 mg/dL [facility] Comment:METER #: [id number] 04/28/2024 10:2 8 AM EDT 04/28/2024 10:33 AM EDT Generic External Data Provider LAB BLOOD ORDERAB LES Final Result Performing Organization Address City/[facility]/ZIP Co de Phone Number [facility] [address] [place] [phone] documented in this encounter Visit Diagnoses Not on filedocumented in this encounter Additional Health Concerns Assessment Noted Time PHQ-9 Depression Total Score: 1 04/19/19 24 1:30 PM EST documented as of this encounter Care Teams Rattlesnake Farmer Relationship Specialty Start Date End Date Balaji Quinones MD [address] [place], [place] [phone] PCP - General Internal Medicine 11/25/13 Kristi Giles PharmD [address] [place], [place] [phone] Pharmacist Internal Medicine 01/30/22 documented as of this encounter
--- OUTSIDE RECORDS SUMMARY | 2024-05-08 17:52 | XMS_ITS | Encounter Summary ---
Author Organization [employer] Address 75 [facility] 7t [place] [address] Care Team Providers Care Insurance Follow Up Representative Name Role Phone Balaji Quinones MD Primary Care Provide r Kristi Giles PharmD Unavailable [phone] Reason for Visit * Reason Comments Med Refill Encounter Details Date Type Department Care Team (Late st Contact Info) Description 03/01/2023 Refill [facility] 230 [place] [address] Balaji Quinones MD [address] [place], [place] [phone] Type 2 diabetes mellitus without complication, unspecified whether senior living insulin use ([facility]) Social History Tobacco Use Types [...] [facility] [address] [place] [address] Balaji Quinones MD [address] [place] [address] 05/27/2024 1:00 PM EDT Office Visit [facility] [address] [place] [address] Kaci Meadows, OD 230 [place] [address] documented as of this encounter Goals Goal [...] 2 diabetes mellitus without complication, unspecified whether senior living insulin use ([facility]) documented in this encounter Care Teams Insurance Follow Up Representative Relationship Specialty Start Date End Date Balaji Quinones MD [address] [place] [address] PCP - General Internal Medicine 11/25/13 Kristi Giles PharmD [address] [place] [address] Pharmacist Internal Medicine 01/30/22 documented as of this encounter
== END 2024-05-08 15:28 | disposition home or self-care (01) ==
LOC: HO.HPS 14:13
PROVIDERS: PCP Internal Medicine; Visit Provider Hospitalist
DX: R59.0 Localized enlarged lymph nodes (principal); C61 Malignant neoplasm of prostate; C77.1 Secondary and unspecified malignant neoplasm of intrathoracic lymph nodes
CPT/HCPCS: 99215

== ENCOUNTER → 2024-05-08 14:13 | Outpatient (BNVA) | payer MEDICARE, MEDICAID, SELFPAY | PROVIDERS: PCP Internal Medicine; Visit Provider Hospitalist | DX: C77.1 Secondary and unspecified malignant neoplasm of intrathoracic lymph nodes (principal); C61 Malignant neoplasm of prostate; R59.0 Localized enlarged lymph nodes | CPT/HCPCS: 99212 ==

== ENCOUNTER 2024-06-05 08:35 | Outpatient (REF) | payer MEDICARE, MEDICAID, SELFPAY ==
[2024-06-05 11:46] LABS: Alanine Aminotransferase 7 U/L (0-40); Albumin Level 3.9 g/dL (3.5-5.0); Alkaline Phosphatase 36 U/L (39-117); Aspartate Amino Transferase 32 U/L (5-37); Bilirubin Direct 0.4 mg/dL (0.0-0.5); Bilirubin Total 1.2 mg/dL (0.0-1.0); Cholesterol 108 mg/dL (<200); HDL Cholesterol 34 mg/dL (>40); LDL Cholesterol Calculated 58 mg/dL (<100); Total Protein 6.5 g/dL (6.5-8.0); Triglycerides 84 mg/dL (<150)
[2024-06-05 12:15] LABS: Folate 13.7 ng/mL (> or = 4.0); Vitamin B12 863 pg/mL (200-900)
[2024-06-05 12:25] LABS: Microalbumin Urine < 5.0 mg/L
== END 2024-06-05 08:36 | disposition home or self-care (01) ==
LOC: HO.HHCL 08:35
PROVIDERS: Visit Provider Pharmacist
DX: E11.9 Type 2 diabetes mellitus without complications (principal); E78.2 Mixed hyperlipidemia
CPT/HCPCS: 36415; 80061; 80076; 82043; 82570; 82607; 82746

== ENCOUNTER 2024-06-11 15:10 | Outpatient (AMB) | payer MEDICARE, MEDICAID, SELFPAY ==
--- NOTE | 2024-06-11 15:17 | MHC.OFFVIS ---
Intake Visit Reasons: Pet CT follow up Intake Note: Patient is present for PET CT F/U Urology Medication:FINASTERIDE, VITAMIN 12 Antibiotic Allergy:NONE Blood Thinner:ASPIRIN Fur Blowing Machine Attendant Required: No Allergies No Known Allergies Allergy (Verified 06/11/24 15:20) HPI Comments Details: Paul is a pleasant Ukrainian-speaking male. He is a patient of Dr. Grimes. He is seen for the following urologic conditions - elevated PSA Ukrainian translation provided by qualified certified medical assistant 06/06 Interval history Presented to pulmonary with shortness of breath Chest CT with pulmonary mass Bronchoscopy cytology shows cells consistent with metastatic prostate cancer PET- CT - 06/06 - positive pulmonary mass, para-aortic, external lymph nodes bilateral consistent with metastatic prostate cancer Prostate biopsy - 10/05 acute and chronic inflammation Discussed result with patient Plan on initiating antiandrogen therapy. Bicalutamide t.i.d.. [facility] in 2 weeks. Has prostate MRI plan for June 24. Will benefit from germline DNA testing which could be performed at same time as [facility]. Will need addition of antiandrogen which can be done once imaging and germline testing complete. Elevated PSA 07/05 12.5, 05/06 49 Repeat PSA 15.8 Prostate biopsy - 10/05 acute and chronic inflammation PFSH Medical History Lymphadenopathy, mediastinal Thoracic aortic aneurysm (TAA) Depression Hyperlipemia HTN (hypertension) Diabetes Anemia Surgical History Hx of prostate biopsy Hx of umbilical hernia repair H/O colonoscopy Family History Sister Breast cancer Social History Household Members: None Housing: Apartment Are you a primary assisted living care manager to a significant other at home: No Do you presently have visiting nurse or other home services: No Alcohol intake: former Patient Tobacco Use Status: Never used Tobacco service: No Current occupational status: disabled Review of Systems Const Denies chills and Denies fever(s) Card Reports no additional complaints and Denies syncope Resp Denies cough GI Denies abdominal pain and Denies heartburn Reports as per HPI and Denies change in libido Neuro Denies syncope Psych Denies change in libido Endo Denies change in libido Physical Exam Const General: cooperative, healthy appearing, comfortable and no acute distress Orientation/consciousness: patient oriented x3 HEENT Face and sinus: Yes normal facial exam Mouth: moist mucous membranes Neck Neck: Yes normal visual inspection, Yes full ROM and Yes trachea midline Chest Chest palpation & inspection: normal inspection of the chest Resp Effort & Inspection: normal respiratory effort, able to speak in complete sentences and no respiratory distress GI Inspection: Yes normal to inspection Back/Spine/Pelvis Cervical Spine: normal cervical lordosis Thoracic/Lumbar Spine: thoracic and lumbar spine normal to inspection Skin General skin exam: no rashes or lesions noted Neuro General: patient oriented x3, gait normal, tone normal and moves all extremities Extrem General: Yes normal to inspection and Yes capillary refill normal Assessment & Plan Assessment & Plan (1) 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 While every effort has been made to ensure accuracy a and p technician errors may have been included. Imaging studies, laboratory and physical exam results were discussed and reviewed in detail. No major barriers to patient understanding were identified. An opportunity to ask questions regarding the treatment plan was provided. All questions were answered. The patient expressed understanding and agreement with the above treatment plan. The patient is aware they should contact our office by phone for worsening of their current condition or the appearance of new urologic symptoms. Compliance is encouraged with any medications and followup testing that is ordered. It is a privilege to participate in the urologic care of your patient. If you have any questions or concerns regarding treatment for the above conditions, or other urologic issues, please do not hesitate to contact me. The office telephone contact is [phone]. 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
--- OUTSIDE RECORDS SUMMARY | 2024-06-11 16:15 | XMS_ITS | Encounter Summary ---
Author Organization [employer] Address [address] [facility] [address] [place] [address] Care Team Providers Care Acupuncturist Name Role Phone Balaji Quinones MD Primary Care Provide r Kristi Giles PharmD Unavailable +- Birgit Franklin PharmD Unavailable [phone] Reason for Visit * Reason Comments Med Refill Encounter Details Date Type Department Care Team (Late st Contact Info) Description 05/11/2022 Refill [facility] [address] [place] [address] Balaji Quinones MD [address] [place] [address] Swelling of right middle finger Social History [...] Care Team (Late st Contact Info) Description 07/22/2024 1:30 PM EDT Office Visit [facility] [address] [place] [address] Balaji Quinones MD [address] [place] [address] 09/04/2024 11:00 AM EDT Medication Management [facility] [address] [place] [address] Birgit Franklin PharmD [address] [place] [address] documented as of this encounter Goals Goal Patient Goal Type Associated Problems Recent Progress Patient-Stated? Author Blood Pressure < 140/90 Blood Pressure 138/82(2024 1:42 PM EDT) No Kristi Giles PharmD Note: Maintain BP less than 140/90 Record your blood pressure once per day Blood Pressure No Kristi Giles PharmD Note: Check BP daily Follow the DASH diet Diet No Kristi Giles PharmD Note: Look for foods that are low sodium. documented as of this encounter Visit Diagnoses Diagnosis Swelling of right middle finger documented in this encounter Care Teams Acupuncturist Relationship Specialty Start Date End Date Balaji [place] [address] PCP - General Internal Medicine 11/25/13 Kristi Giles PharmD [address] [place] [address] [phone] Pharmacist Internal Medicine 01/30/22 06/05/24 Birgit [place] [address] Pharmacist Internal Medicine 06/06/24 documented as of this encounter
--- OUTSIDE RECORDS SUMMARY | 2024-06-11 16:15 | XMS_ITS | Encounter Summary ---
Author Organization [employer] [facility] Address [address] [facility] 7t [place] [address] Care Team Providers Care Consultant In Ergonomics And Safety Name Role Phone Balaji Quinones MD Primary Care Provide r Kristi Giles PharmD Unavailable +- Birgit Franklin PharmD Unavailable [phone] Reason for Visit * Reason Comments Med Refill Encounter Details Date Type Department Care Team (Late st Contact Info) Description 10/27/2022 Refill [facility] [address] [place] [address] Balaji Quinones MD [address] [place], [place] [phone] Dermatitis of lower extremity Social History Tobacco [...] Description 07/22/2024 1:30 PM EDT Office Visit [facility] [address] [place], [place] [phone] Balaji Quinones MD [address] [place], [place] [phone] 09/04/2024 11:00 AM EDT Medication Management [facility] [address] [place] [address] Birgit Franklin PharmD [address] [place] [address] documented as of this encounter Goals Goal Patient Goal Type Associated Problems Recent Progress Patient-Stated? Author Blood Pressure < 140/90 Blood Pressure 138/82(2024 1:42 PM EDT) No Kristi Giles PharmD Note: Maintain BP less than 140/90 Record your blood pressure once per day Blood Pressure No Kristi Giles PharmD Note: Check BP daily Blood Pressure < 140/90 Blood Pressure Hypertension 138/82(2024 1:42 PM EDT) No Kristi Giles PharmD Follow the DASH diet Diet No Kristi Giles PharmD Note: Look for foods that are low sodium. documented as of this encounter Visit Diagnoses Diagnosis Dermatitis of lower extremity documented in this encounter Care Teams Consultant In Ergonomics And Safety Relationship Specialty Start Date End Date Balaji Quinones MD [address] [place] [phone] PCP - General Internal Medicine 11/25/13 Kristi Giles PharmD [address] [place] [address] Pharmacist Internal Medicine 01/30/22 06/05/24 Birgit Franklin PharmD [address] [place] [phone] Pharmacist Internal Medicine 06/06/24 documented as of this encounter
--- OUTSIDE RECORDS SUMMARY | 2024-06-11 16:15 | XMS_ITS | Encounter Summary ---
Author Organization [employer] Address [address] [facility] [address] 7t [place] [address] Care Team Providers Care Tipple Mechanic Name Role Phone Balaji Quinones MD Primary Care Provide r Kristi Giles PharmD Unavailable + Birgit Franklin PharmD Unavailable [phone] Reason for Visit * Reason Comments Med Refill Encounter Details Date Type Department Care Team (Late Contact Info) Description 03/08/2023 Refill [facility] [address] [place], [place] [phone] Balaji Quinones MD [address] [place] [address] [phone] Folliculitis Social History Tobacco Use Types Packs/Day [...] Description 07/22/2024 1:30 PM EDT Office Visit [facility] [address] [place], [place] [phone] Balaji Quinones MD [address] [place] [address] [phone] 09/04/2024 11:00 AM EDT Medication Management [facility] [address] [place] [address] Birgit Franklin PharmD 230 [place] [address] documented as of this encounter Goals Goal [...] follicles documented in this encounter Care Teams Tipple Mechanic Relationship Specialty Start Date End Date Balaji Quinones MD [address] [place] [address] PCP - General Internal Medicine 11/25/13 Kristi Giles PharmD [address] [place] [address] Pharmacist Internal Medicine 01/30/22 06/05/24 Birgit Franklin PharmD [address] [place] [address] Pharmacist Internal Medicine 06/06/24 documented as of this encounter
--- OUTSIDE RECORDS SUMMARY | 2024-06-11 16:15 | XMS_ITS | Encounter Summary ---
Author Organization [employer] Address [address] [facility] [address] 7[address] [place] [address] Care Team Providers Care Concrete Batcher Name Role Phone Balaji Quinones MD Primary Care Provide r Kristi Giles PharmD Unavailable +- Birgit Franklin PharmD Unavailable [phone] Reason for Visit * Reason Comments Med Refill Encounter Details Date Type Department Care Team ([facility] st Contact Info) Description 06/25/2023 Refill [facility] 230 [place] [address] Balaji Quinones MD [address] [place] [address] Folliculitis Social History Tobacco Use Types Packs/Day [...] Description 07/22/2024 1:30 PM EDT Office Visit [facility] [address] [place] [phone] Balaji Quinones MD [address] [place] [address] 09/04/2024 11:00 AM EDT Medication Management [facility] [address] [place] [address] Birgit Franklin, Quentin [address] [place] [address] documented as of this encounter Goals Goal [...] Hypertension 138/82(2024 1:42 PM EDT) No Kristi Giles, PharmIvan Follow the DASH diet Diet No Kristi Giles PharmD Note: Look for foods that are low sodium. Hemoglobin A1c < 7 Result Component Type 2 diabetes mellitus 6.6( 5 11:31 AM EST) No Kristi Giles PharmD documented as of this encounter Visit Diagnoses Diagnosis Folliculitis Other specified disease of hair and hair follicles documented in this encounter Additional Health Concerns Assessment Noted Time PHQ-9 Depression Total Score: 1 04/19/19 24 1:30 PM EST documented as of this encounter Care Teams Concrete Batcher Relationship Specialty Start Date End Date Balaji Quinones MD [address] [place] [address] PCP - General Internal Medicine 11/25/13 Kristi Giles, Quentin [address] [place] [address] Pharmacist Internal Medicine 01/30/22 06/05/24 Birgit Franklin PharmD [address] [place] [phone] Pharmacist Internal Medicine 06/06/24 documented as of this encounter
--- OUTSIDE RECORDS SUMMARY | 2024-06-11 16:15 | XMS_ITS | Encounter Summary ---
Author Organization [employer] Address [address] [facility] [address] [place] [address] Care Team Providers Care Cleaning Technician Name Role Phone Balaji Quinones MD Primary Care Provide r Kristi Giles PharmD Unavailable +- Birgit Franklin PharmD Unavailable [phone] Reason for Visit * Reason Comments Med Refill Encounter Details Date Type Department Care Team (Late st Contact Info) Description 10/27/2022 Refill [facility] [address] [place] [address] Clau Pascual ANP 230 [place] [address] Tinea pedis of both feet Social History [...] Description 07/22/2024 1:30 PM EDT Office Visit [facility] [address] [place] [address] Balaji Quinones MD 230 [place] [address] 09/04/2024 11:00 AM EDT Medication Management [facility] [address] [place] [address] Birgit Franklin PharmD 230 [place], [place] documented as of this encounter Goals Goal [...] feet documented in this encounter Care Teams Cleaning Technician Relationship Specialty Start Date End Date Balaji [place]ones [place] [address] PCP - General Internal Medicine 11/25/13 Kristi Giles PharmD [address] [place], [place] Pharmacist Internal Medicine 01/30/22 06/05/24 Birgit Franklin PharmD [address] [place], [place] Pharmacist Internal Medicine 06/06/24 documented as of this encounter
--- OUTSIDE RECORDS SUMMARY | 2024-06-11 16:15 | XMS_ITS | Encounter Summary ---
Author Organization [employer] Address [address] [facility] [address] 7[address] [place] [address] Care Team Providers Care Steam Brush Operator Name Role Phone Balaji Quinones MD Primary Care Provide r Kristi Giles PharmD Unavailable + Birgit Franklin PharmD Unavailable [phone] Reason for Visit * Reason Comments Med Refill Encounter Details Date Type Department Care Team ([facility] st Contact Info) Description 08/01/2023 Refill [facility] [address] [place] [address] Vani Stallworth MD [address] [place] [address] Folliculitis Social History Tobacco Use Types Packs/Day [...] Description 07/22/2024 1:30 PM EDT Office Visit [facility] [address] [place] [phone] Balaji Quinones MD [address] [place] [address] 09/04/2024 11:00 AM EDT Medication Management [facility] [address] [place] [address] Birgit Franklin PharmD [address] [place] [address] documented as of this encounter Goals Goal [...] documented as of this encounter Care Teams Steam Brush Operator Relationship Specialty Start Date End Date Balaji Quinones MD [address] [place] [address] PCP - General Internal Medicine 11/25/13 Kristi Giles PharmD [address] [place] [address] Pharmacist Internal Medicine 01/30/22 06/05/24 Birgit Franklin PharmD [address] [place] [address] Pharmacist Internal Medicine 06/06/24 documented as of this encounter
--- OUTSIDE RECORDS SUMMARY | 2024-06-11 16:15 | XMS_ITS | Encounter Summary ---
Author Organization [employer] [facility] Address [address] [facility] [address] 7t [place] [address] Care Team Providers Care Occupational Health Manager Name Role Phone Balaji Quinones MD Primary Care Provide r Kristi Giles PharmD Unavailable +- Birgit Franklin PharmD Unavailable [phone] Reason for Visit * Reason Comments Med Refill Encounter Details Date Type Department Care Team (Late st Contact Info) Description 01/28/2023 Refill [facility] [address] [place] [address] Balaji Quinones MD [address] [place] [address] Social History Tobacco Use Types Packs/Day Years [...] Description 07/22/2024 1:30 PM EDT Office Visit [facility] [address] [place] [address] Balaji Quinones MD [address] [place] [address] 09/04/2024 11:00 AM EDT Medication Management [facility] [address] [place] [address] Birgit Franklin PharmD [address] [place] [address] documented as of this encounter Goals Goal [...] on filedocumented in this encounter Care Teams Occupational Health Manager Relationship Specialty Start Date End Date Balaji Quinones MD [address] [place] [address] PCP - General Internal Medicine 11/25/13 Kristi Giles PharmD [address] [place] [address] Pharmacist Internal Medicine 01/30/22 06/05/24 Birgit Franklin PharmD [address] [place] [address] Pharmacist Internal Medicine 06/06/24 documented as of this encounter
--- OUTSIDE RECORDS SUMMARY | 2024-06-11 16:15 | XMS_ITS | Encounter Summary ---
Author Organization [employer] [facility] Address [address] [facility] 7t [place] [address] Care Team Providers Care Flight Crew Scheduler Name Role Phone Balaji Quinones MD Primary Care Provide r Kristi Giles PharmD Unavailable +- Birgit Franklin PharmD Unavailable [phone] Reason for Visit * Reason Comments Med Refill Encounter Details Date Type Department Care Team ([facility] st Contact Info) Description 04/17/2022 Refill [facility] 230 [place] [address] Brook Guerrero MD [address] [place] [address] Other chronic pain Social History Tobacco Use [...] Department Care Team (Late Contact Info) Description 07/22/2024 1:30 PM EDT Office Visit [facility] [address] [place] [address] Balaji Quinones MD [address] [facility] [place] [address] 09/04/2024 11:00 AM EDT Medication Management [facility] [address] [facility] [place] [address] Birgit Franklin PharmD [address] [place], [place] documented as of this encounter Goals [...] pain documented in this encounter Care Teams Flight Crew Scheduler Relationship Specialty Start Date End Date Bal[place] [address] PCP - General Internal Medicine 11/25/13 Kristi [place]iles [place] [address] Pharmacist Internal Medicine 01/30/22 06/05/24 Birgit Franklin PharmD [address] [facility] [place] [address] Pharmacist Internal Medicine 06/06/24 documented as of this encounter
--- OUTSIDE RECORDS SUMMARY | 2024-06-11 16:15 | XMS_ITS | Encounter Summary ---
Author Organization [employer] Address [address] [facility] 7t [place] [address] Care Team Providers Care Automation Developer Name Role Phone Balaji Quinones MD Primary Care Provide r Kristi Giles PharmD Unavailable +- Birgit Franklin PharmD Unavailable [phone] Reason for Visit * Reason Comments Med Refill Encounter Details Date Type Department Care Team ([facility] st Contact Info) Description 12/24/2023 Refill [facility] [address] [place] [address] Balaji Quinones MD [address] [place] [address] Folliculitis Social History Tobacco Use Types Packs/Day [...] Description 07/22/2024 1:30 PM EDT Office Visit [facility] [address] [place] [address] Balaji Quinones MD [address] [place] [address] 09/04/2024 11:00 AM EDT Medication Management [facility] [address] [place] [address] Birgit Franklin, SarayD [address] [place] [address] documented as of this encounter Goals Goal [...] documented as of this encounter Care Teams Automation Developer Relationship Specialty Start Date End Date Balaji Quinones MD [address] [place] [address] PCP - General Internal Medicine 11/25/13 Kristi Giles, Quentin [address] [place] [address] Pharmacist Internal Medicine 01/30/22 06/05/24 Birgit Franklin PharmD [address] [place] [address] Pharmacist Internal Medicine 06/06/24 documented as of this encounter
--- OUTSIDE RECORDS SUMMARY | 2024-06-11 16:15 | XMS_ITS | Encounter Summary ---
Author Organization [employer] [facility] Address [address] [facility] 7t [place] [address] Care Team Providers Care Education Intern Name Role Phone Balaji Quinones MD Primary Care Provide r Kristi Giles PharmD Unavailable +- Birgit Franklin PharmD Unavailable [phone] Encounter Details Date Type Department Care Team (Late st Contact Info) Description 01/28/2022 Abstract [facility] [address] [place] [phone] Kristi Giles, PharmD 230 [place] [address] Social History Tobacco Use Types Packs/Day Years [...] Description 07/22/2024 1:30 PM EDT Office Visit [facility] [address] [place] [address] Balaji Quinones MD [address] [place], [place] [phone] 09/04/2024 11:00 AM EDT Medication Management [facility] [address] [place] [address] Birgit Franklin PharmD [address] [place] [address] documented as of this encounter Goals Goal [...] on filedocumented in this encounter Care Teams Education Intern Relationship Specialty Start Date End Date Balaji Quinones MD [address] [place] [address] PCP - General Internal Medicine 11/25/13 Kristi Giles PharmD [address] [place] [address] Pharmacist Internal Medicine 01/30/22 06/05/24 Birgit Franklin PharmD [address] [place] [address] Pharmacist Internal Medicine 06/06/24 documented as of this encounter
--- OUTSIDE RECORDS SUMMARY | 2024-06-11 16:15 | XMS_ITS | Encounter Summary ---
Author Organization [employer] Address [address] [facility]t [place] [address] Care Team Providers Care Retail Marketing Executive Name Role Phone Balaji Quinones MD Primary Care Provide r Kristi Giles PharmD Unavailable [phone] Birgit Franklin PharmD Unavailable [phone] Reason for Visit * Reason Onset Date Comments Durable Medical Equipment 01/30/2023 Encounter Details Date Type Department Care Team ([facility] st Contact Info) Description 01/30/2023 Telephone [facility] MEDICINE [address] [place] [address] Balaji Quinones MD [address] [place] [address] Durable Medical Equipment Social History Tobacco Use [...] Miscellaneous Notes * Telephone Encounter - Lisa Fenton - 01/30/2023 10:07 AM EST Tc from pt requesting knee pads due to his diabetes diagnostics and taking falls. Please contact pt @ [phone] Libyan Speaker documented in this encounter Plan of Treatment Upcoming Encounters Date Type Department Care Team (Late st Contact Info) Description 07/22/2024 1:30 PM EDT Office Visit [facility] MEDICINE [address] [place], [place] [phone] Balaji Quinones MD [place] [address] 09/04/2024 11:00 AM EDT Medication Management [facility] MEDICINE [address] [place], [place] [phone] Birgit Franklin PharmD [address] [place], [place] [phone] documented as of this encounter Goals Goal [...] on filedocumented in this encounter Care Teams Retail Marketing Executive Relationship Specialty Start Date End Date Balaji Quinones MD [address] [place], [place] [phone] PCP - General Internal Medicine 11/25/13 Kristi Giles PharmD [address] [place] [address] [phone] Pharmacist Internal Medicine 01/30/22 06/05/24 Birgit Franklin, SarayD [address] [place] [address] Pharmacist Internal Medicine 06/06/24 documented as of this encounter
--- OUTSIDE RECORDS SUMMARY | 2024-06-11 16:15 | XMS_ITS | Encounter Summary ---
Author Organization [employer] Address [address] [facility] [address] 7t [place] [address] Care Team Providers Care Solid Fiber Paster Operator Name Role Phone Balaji Quinones MD Primary Care Provide r Kristi Giles PharmD Unavailable [phone] Birgit Franklin PharmD Unavailable [phone] Reason for Visit * Reason Onset Date Comments Med Refill 01/30/2023 Encounter Details Date Type Department Care Team ([facility] st Contact Info) Description 01/30/2023 Telephone [facility] MEDICINE 230 [place] [address] Balaji Quinones MD 230 [place] [address] Med Refill Social History Tobacco Use Types [...] to PCP. * Telephone Encounter - Lisa Fenton - 01/30/2023 10:00 AM EST Tc from pt requesting med refill on Aspirin Low Dose 81 MG EC tablet Please sent to [facility] - [place], [place] - [address] [facility] Pt is due on holidays but is requesting if medication could be given before than. documented in this encounter Plan of Treatment Upcoming Encounters Date Type Department Care Team (Late st Contact Info) Description 07/22/2024 1:30 PM EDT Office Visit [facility] MEDICINE [address] [place] [address] Balaji Quinones MD [address] [place] [address] 09/04/2024 11:00 AM EDT Medication Management [facility] MEDICINE [address] [place] [address] Birgit Franklin PharmD [address] [place] [address] documented as of this encounter Goals Goal [...] on filedocumented in this encounter Care Teams Solid Fiber Paster Operator Relationship Specialty Start Date End Date Balaji Quinones MD [address] [place] [address] PCP - General Internal Medicine 11/25/13 Kristi Giles, SarayD 230 [place] [address] Pharmacist Internal Medicine 01/30/22 06/05/24 Birgit Franklin PharmD 230 [place] [address] Pharmacist Internal Medicine 06/06/24 documented as of this encounter
--- OUTSIDE RECORDS SUMMARY | 2024-06-11 16:15 | XMS_ITS | Encounter Summary ---
Author Organization [employer] Address [address] [facility] [address] 7t [place] [address] Care Team Providers Care Manager R D Name Role Phone Balaji Quinones MD Primary Care Provide r Birgit Franklin PharmD Unavailable [phone] Reason for Visit * Reason Onset Date Comments Results 06/09/2024 Encounter Details Date Type Department Care Team ([facility] st Contact Info) Description 06/09/2024 Telephone [facility] 230 [place] [address] Balaji Quinones MD 230 [place] [address] Results Social History Tobacco Use Types Packs/Day Years Used Date Smoking Tobacco: Former Cigarettes Passive Smoke Exposure: Past Smokeless Tobacco: Never Alcohol Use Standard Drinks/Week Comments Never 0 (1 standard drink = 0.6 oz pur e alcohol) Depression Answer Date Recorded Patient Health Questionnaire-9 Score 0 05/15/2024 Patient Health Questionnaire-9 Score 0 05/15/2024 Last PHQ-9: Questionnaire Data Not on file 0 05/15/2024 Housing Stability Answer Date Recorded What is your housing situation today? I have karlie cope 05/15/[address] you li ve. Do you have problems with any of the following? None of the above 05/15/2024 Food Insecurity Answer Date Recorded Within the past 12 months, y ou worried that your food would run out before you got money to buy more: Never True 05/15/2024 Within the past 12 months,th e food you bought just didn't last and you didn't have enough money to get more: Never True 04/2024 Transportation Answer Date Recorded In the past 12 months, has l ack of transportation kept you from medical appts, meetings, work or from getting things needed for daily living? No 05/15/2024 Utilities Answer Date Recorded In the past 12 months, has t he electric, gas, oil or water company threatened to shut off services in your home? No 05/15/2024 Depression Answer Date Recorded Patient Health Questionnaire-2 Score 0 05/15/2024 Internet Access Answer Date Recorded Internet Access Q1 Yes 05/15/2024 Internet Access Q2 Not on file 05/15/2024 Sex and Gender Information Value Date Recorded Sex Assigned at Male 12/12/2021 10:18 AM EDT Legal Sex Male 10:18 AM EDT Gender Identity Male 12/12/2021 10:18 AM EDT Sexual Orientation Don't know 12/12/2021 10 :18 AM EDT documented as of this encounter Miscellaneous Notes * Telephone Encounter - Raquel Kirk RN - 06/09/2024 11:35 AM EDT Pt walked into [employer] team lobby regarding below message. He is very upset with the lab. States theyeither don't run the lab after drawing it or they don't send us the results. Went over his labs with him which I was able to obtain in [employer]. HDL low, bili improved from last time. Advised to increase foods rich in healthy fats like avocados, nuts, and fish. Pt verbalized understanding and denied having any further questions or concerns at this time. * Telephone Encounter - Bobby Ryan - 06/09/2024 9:28 AM EDT Tc from pt requesting lab results from 06/03. Labs show as not yet released. Pt states he had labs drawn on 06/04 and is requesting results. [phone] documented in this encounter Plan of Treatment Upcoming Encounters Date Type Department Care Team (Late st Contact Info) Description 07/22/2024 1:30 PM EDT Office Visit [facility] [address] [place] [address] [phone] Balaji Quinones MD [address] [place], [place] 09/04/2024 11:00 AM EDT Medication Management [facility] [address] [place], [place] [phone] Birgit Franklin PharmD [address] [place], [place] documented as of this encounter Goals [...] Assessment Noted Time PHQ-9 Depression Total Score: 0 05/16/19 25 11:46 AM EDT documented as of this encounter Care Teams Manager R D Relationship Specialty Start Date End Date Balaji Quinones MD [address] [place] [address] PCP - General Internal Medicine 11/25/13 Birgit Franklin PharmD [address] [place] [address] Pharmacist Internal Medicine 06/06/24 documented as of this encounter
--- OUTSIDE RECORDS SUMMARY | 2024-06-11 16:15 | XMS_ITS | Encounter Summary ---
Author Organization [employer] Address 75 [facility] [address] 7t [place] [address] Care Team Providers Care Mini Bar Attendant Name Role Phone Balaji Quinones MD Primary Care Provide r Kristi Giles PharmD Unavailable +- Birgit Franklin PharmD Unavailable [phone] Reason for Visit * Reason Comments Med Refill Encounter Details Date Type Department Care Team ([facility] st Contact Info) Description 04/19/2023 Refill [facility] MED[facility]INE 230 [place] [address] Balaji Quinones MD 230 [place], [place] [phone] Primary hypertension; Folliculitis Social History Tobacco Use [...] Description 07/22/2024 1:30 PM EDT Office Visit [facility] MEDICINE [address] [place] [address] Balaji Quinones MD [address] [place] [address] 09/04/2024 11:00 AM EDT Medication Management [facility] MEDICINE [address] [place] [address] Birgit Franklin, Quentin [address] [place] [address] documented as of this encounter Goals Goal [...] PharmIvan Follow the DASH diet Diet No Giles, Jerril, PharmD Note: Look for foods that are low sodium. documented as of this encounter Visit Diagnoses Diagnosis Primary hypertension Unspecified essential hypertension Folliculitis Other specified disease of hair and hair follicles documented in this encounter Additional Health Concerns Assessment Noted Time PHQ-9 Depression Total Score: 1 04/19/19 24 1:30 PM EST documented as of this encounter Care Teams Mini Bar Attendant Relationship Specialty Start Date End Date Balaji Quinones MD 230 [place] [address] PCP - General Internal Medicine 11/25/13 Kristi Giles, Quentin [address] [place] [address] Pharmacist Internal Medicine 01/30/22 06/05/24 Birgit Franklin PharmD [address] [place] [address] Pharmacist Internal Medicine 06/06/24 documented as of this encounter
--- OUTSIDE RECORDS SUMMARY | 2024-06-11 16:15 | XMS_ITS | Encounter Summary ---
Author Organization [employer] Address 75 [facility] 7t [place] [address] Care Team Providers Care Traffic Coordinator Name Role Phone Balaji Quinones MD Primary Care Provide r Kristi Giles PharmD Unavailable +- Birgit rFanklin PharmD Unavailable [phone] Encounter Details Date Type Department Care Team (Late st Contact Info) Description 09/08/2022 [facility] Health Information Management 230 [place] [address] Balaji Quinones MD 230 [place] [address] Social History Tobacco Use Types Packs/Day Years [...] Description 07/22/2024 1:30 PM EDT Office Visit [facility] MEDICINE [address] [place] [address] [phone] Balaji Quinones MD 230 [place], [place] [phone] 09/04/2024 11:00 AM EDT Medication Management [facility] MEDICINE 230 [place] [address] Birgit Franklin PharmD [address] [place] [address] documented as of this encounter Goals Goal [...] filedocumented in this encounter Care Teams Traffic Coordinator Relationship Specialty Start Date End Date Balaji Quinones MD [address] [place] [address] PCP - General Internal Medicine 11/25/13 Kristi Giles PharmD [address] [place] [address] Pharmacist Internal Medicine 01/30/22 06/05/24 Birgit Franklin PharmD [address] [place] [address] Pharmacist Internal Medicine 06/06/24 documented as of this encounter
--- OUTSIDE RECORDS SUMMARY | 2024-06-11 16:15 | XMS_ITS | Encounter Summary ---
Author Organization [employer] Address [address] [facility] [address] 7t [place] [address] Care Team Providers Care Hospital Insurance Clerk Name Role Phone Balaji Quinones MD Primary Care Provide r Kristi Giles PharmD Unavailable +- Birgit Franklin PharmD Unavailable [phone] Encounter Details Date Type Department Care Team ([facility] Contact Info) Description 06/22/2022 Abstract [facility] MEDICINE [address] [place] [phone] Balaji Quinones MD 230 [place] [address] Social History Tobacco Use Types Packs/Day Years [...] Upcoming Encounters Date Type Department Care Team ([facility] Contact Info) Description 07/22/2024 1:30 PM EDT Office Visit [facility] MEDICINE 230 [place] [address] Balaji Quinones MD 230 [place] [address] 09/04/2024 11:00 AM EDT Medication Management [facility] MEDICINE 230 [place] [address] Birgit Franklin PharmD 230 [place] [address] documented as of this encounter Goals Goal [...] ( [facility] ) us Historical Provider HEALTH MAINTENANCE Final Result documented in this encounter Visit Diagnoses Not on filedocumented in this encounter Care Teams Hospital Insurance Clerk Relationship Specialty Start Date End Date Balaji Quinones MD 230 [place] [address] PCP - General Internal Medicine 11/25/13 Kristi Giles, SarayD [address] [place] [address] Pharmacist Internal Medicine 01/30/22 06/05/24 Birgit Franklin, SarayD 230 [place] [address] Pharmacist Internal Medicine 06/06/24 documented as of this encounter
--- OUTSIDE RECORDS SUMMARY | 2024-06-11 16:15 | XMS_ITS | Encounter Summary ---
Author Organization [employer] Address 75 [facility] 7t [place] [address] Care Team Providers Care Fish Bait Processing Supervisor Name Role Phone Balaji Quinones MD Primary Care Provide r Kristi Giles PharmD Unavailable + Birgit Franklin PharmD Unavailable [phone] Reason for Visit * Reason Comments Med Refill Encounter Details Date Type Department Care Team (Late st Contact Info) Description 03/01/2023 Refill [facility] MEDICINE 230 [place] [address] Balaji Quinones MD 230 [place], [place] [phone] Type 2 diabetes mellitus without complication, unspecified whether nuclear instructor insulin use ([facility]) Social History Tobacco Use [...] Office Visit [facility] MEDICINE [address] [place], [place] [phone] Balaji Quinones MD 230 [place], [place] [phone] 09/04/2024 11:00 AM EDT Medication Management [facility] MEDICINE [address] [place] [address] Birgit Franklin PharmD 230 [place] [address] documented as of this encounter Goals Goal [...] 2 diabetes mellitus without complication, unspecified whether detention insulin use ([facility]) documented in this encounter Care Teams Fish Bait Processing Supervisor Relationship Specialty Start Date End Date Balaji Quinones MD [address] [place] [address] PCP - General Internal Medicine 11/25/13 Kristi Giles PharmD [address] [place] [address] Pharmacist Internal Medicine 01/30/22 06/05/24 Birgit Franklin PharmD [address] [place] [address] Pharmacist Internal Medicine 06/06/24 documented as of this encounter
--- OUTSIDE RECORDS SUMMARY | 2024-06-11 16:15 | XMS_ITS | Encounter Summary ---
Author Organization [employer] Address [address] [facility] [address] 7t [place] [address] Care Team Providers Care Coremaker Apprentice Name Role Phone Balaji Quinones MD Primary Care Provide r Kristi Giles PharmD Unavailable +- Birgit Franklin PharmD Unavailable [phone] Reason for Visit * Reason Comments Med Refill Encounter Details Date Type Department Care Team ([facility] st Contact Info) Description 06/11/2023 Refill [facility] [address] [place] [address] Balaji Quinones MD [address] [place] [address] Swelling of right middle finger Social History [...] your housing situation today? I have karlie sing 04/19/[address] you li [...] Description 07/22/2024 1:30 PM EDT Office Visit [facility] MEDICINE [address] [place] [address] Balaji Quinones MD 230 [place] [address] 09/04/2024 11:00 AM EDT Medication Management [facility] MEDICINE [address] [place] [address] Birgit Franklin, SarayD [address] [place] [address] documented as of this encounter Goals Goal [...] documented as of this encounter Care Teams Coremaker Apprentice Relationship Specialty Start Date End Date Balaji Quinones MD 230 [place] [address] PCP - General Internal Medicine 11/25/13 Kristi Giles, Quentin [address] [place] [address] Pharmacist Internal Medicine 01/30/22 06/05/24 Birgit Franklin PharmD 230 [place] [address] Pharmacist Internal Medicine 06/06/24 documented as of this encounter
--- OUTSIDE RECORDS SUMMARY | 2024-06-11 16:15 | XMS_ITS | Encounter Summary ---
Author Organization [employer] Address [address] [facility] [address] 7t [place] [address] Care Team Providers Care Resident Physician Name Role Phone Balaji Quinones MD Primary Care Provide r Kristi Giles PharmD Unavailable +- Birgit Franklin PharmD Unavailable [phone] Reason for Visit * Reason Comments Med Refill Encounter Details Date Type Department Care Team (Late st Contact Info) Description 01/30/2023 Refill [facility] 230 [place] [address] Balaji Quinones MD [address] [place], [place] [phone] Social History Tobacco Use Types Packs/Day Years [...] Description 07/22/2024 1:30 PM EDT Office Visit [facility] MEDICINE 230 [place], [place] [phone] Balaji Quinones MD [address] [place], [place] [phone] 09/04/2024 11:00 AM EDT Medication Management [facility] [address] [place] [address] Birgit Franklin PharmD [address] [facility] [place] [address] documented as of this encounter Goals Goal [...] on filedocumented in this encounter Care Teams Resident Physician Relationship Specialty Start Date End Date Balaji [place] [address] PCP - General Internal Medicine 11/25/13 Kristi [place]iles [place] [address] Pharmacist Internal Medicine 01/30/22 06/05/24 Birgit Franklin [place] [address] Pharmacist Internal Medicine 06/06/24 documented as of this encounter
--- OUTSIDE RECORDS SUMMARY | 2024-06-11 16:15 | XMS_ITS | Encounter Summary ---
Author Organization [employer] Address [address] [facility] [address] 7t [place] [address] Care Team Providers Care Channel Executive Name Role Phone Balaji Quinones MD Primary Care Provide r Kristi Giles PharmD Unavailable +- Birgit Franklin PharmD Unavailable [phone] Reason for Visit * Reason Comments Med Refill Encounter Details Date Type Department Care Team (Late st Contact Info) Description 01/30/2023 Refill [facility] 230 [place] [address] Balaji Quinones MD 230 [place], [place] [phone] Social History Tobacco Use Types Packs/Day Years [...] Description 07/22/2024 1:30 PM EDT Office Visit [facility] MEDICINE 230 [place], [place] [phone] Balaji Quinones MD [address] [place], [place] [phone] 09/04/2024 11:00 AM EDT Medication Management [facility] MEDICINE [address] [place] [address] Birgit Franklin PharmD 230 [facility] [place] [address] documented as of this encounter Goals Goal [...] on filedocumented in this encounter Care Teams Channel Executive Relationship Specialty Start Date End Date Balaji [place] [address] PCP - General Internal Medicine 11/25/13 Kristi [place] [address] Pharmacist Internal Medicine 01/30/22 06/05/24 Birgit Franklin [place] [address] Pharmacist Internal Medicine 06/06/24 documented as of this encounter
--- OUTSIDE RECORDS SUMMARY | 2024-06-11 16:15 | XMS_ITS | Encounter Summary ---
Author Organization [employer] Address [address] [facility] [address] 7t [place] [address] Care Team Providers Care Electrician'S Assistant Name Role Phone Balaji Quinones MD Primary Care Provide r Kristi Giles PharmD Unavailable +- Birgit Franklin PharmD Unavailable [phone] Reason for Visit * Reason Comments Med Refill Encounter Details Date Type Department Care Team (Late st Contact Info) Description 12/30/2022 Refill [facility] 230 [place] [address] Balaji Quinones MD [address] [place] [address] [phone] Tinea pedis of both feet Social History [...] Description 07/22/2024 1:30 PM EDT Office Visit [facility] MED[facility]INE 230 [place] [address] Balaji Quinones MD [address] [place] [address] [phone] 09/04/2024 11:00 AM EDT Medication Management [facility] MED[facility]INE [address] [place] [address] Birgit Franklin PharmD [address] [place] [address] documented as of this encounter Goals Goal [...] feet documented in this encounter Care Teams Electrician'S Assistant Relationship Specialty Start Date End Date Balaji Quinones MD [address] [place] [address] PCP - General Internal Medicine 11/25/13 Kristi Giles PharmD [address] [place] [address] Pharmacist Internal Medicine 01/30/22 06/05/24 Birgit Franklin PharmD [address] [place] [address] Pharmacist Internal Medicine 06/06/24 documented as of this encounter
--- OUTSIDE RECORDS SUMMARY | 2024-06-11 16:15 | XMS_ITS | Encounter Summary ---
Author Organization [employer] Address [address] [facility] [address] 7t [place] [address] Care Team Providers Care Reimbursement Manager Name Role Phone Balaji Quinones MD Primary Care Provide r Kristi Giles PharmD Unavailable +- Birgit Franklin PharmD Unavailable [phone] Reason for Visit * Reason Comments Med Refill Encounter Details Date Type Department Care Team (Late st Contact Info) Description 09/17/2022 Refill [facility] 230 [place] [address] Balaji Quinones MD 230 [place], [place] [phone] Dry eyes Social History Tobacco Use Types [...] Description 07/22/2024 1:30 PM EDT Office Visit [facility] MED[facility] 230 [place], [place] [phone] Balaji Quinones MD [address] [place], [place] [phone] 09/04/2024 11:00 AM EDT Medication Management [facility] MED[facility]INE 230 [place] [address] Birgit Franklin PharmD [address] [place], [place] documented as of this encounter Goals [...] insufficiency documented in this encounter Care Teams Reimbursement Manager Relationship Specialty Start Date End Date Balaji Quinones MD [address] [place] [address] PCP - General Internal Medicine 11/25/13 Kristi Giles PharmD [address] [place] [address] Pharmacist Internal Medicine 01/30/22 06/05/24 Birgit Franklin PharmD [address] [place] [address] Pharmacist Internal Medicine 06/06/24 documented as of this encounter
--- OUTSIDE RECORDS SUMMARY | 2024-06-11 16:16 | XMS_ITS | Clinical Summary ---
Author Organization [employer] Address [address] [place] [address] Care Team Providers Care Resource Analyst Name Role Phone Balaji Quinones MD Primary Care Provide r Birgit Franklin PharmD Unavailable [phone] Allergies No known active allergies Medications sertraline [...] TWICE DAILY NEEDED FOR PAIN 100 g 11/12/19 24 Active glucose blood (FREESTYLE LITE) test stripIndications: Type 2 diabetes mellitus with hyperlipidemia ([facility]/HCC) ([facility]) TEST BLOOD SUGAR ONCE DAILY 100 each 12/28/19 24 Active TRUEplus Lancets 33G miscIndications:T ype 2 diabetes mellitus with hyperlipidemia ([facility]/HCC) ([facility]) TEST BLOOD SUGAR ONCE DAILY ICD10= 100 each 12/28/19 24 Active metFORMIN (Glucophage) 1000 MG tabletIndications :Type 2 diabetes mellitus without complication, unspecified whether watermelon inspector insulin use ([facility]) TAKE 1 TABLET BY MOUTH TWICE [...] without complication, unspecified whether retirement insulin use ([facility]) Take 1 tablet (45 mg) by mouth Once per day. 90 tablet 02/13/19 25 Active polyvinyl alcohol (Liquifilm Tears) 1.4 % ophthalmic solutionIndicatio ns:Dry eyes PLACE 1 DROP IN EACH EYE THREE OR FOUR TIMES DAILY 15 mL 2 03/18/19 25 Active amLODIPine (Norvasc) 10 MG tabletIndications :Primary hypertension TAKE 1 TABLET BY MOUTH EVERY MORNING 90 tablet 03/25/19 25 Active triamcinolone (Kenalog) 0.025 % creamIndications: Dermatitis of lower extremity APPLY TO THE AFFECTED AREA(S) 1 GRAM TOPICALLY TWICE DAILY 60 g 1 04/18/19 25 Active Petrolatum 42 % ointment APPLY TO THE AFFECTED AREA(S) TOPICALLY TWICE DAILY 454 g 5 04/18/19 25 Active ketoconazole (NIZOral) 2 % creamIndications: Tinea pedis of both feet APPLY 1 GRAM TOPICALLY TO AFFECTED AREA(S) EVERY MORNING 30 g 1 05/02/19 25 Active Alcohol Swabs (Alcohol Prep) 70 % pads USE DIRECTED TO TEST BLOOD SUGAR 100 each 11 05/07/19 25 Active glipiZIDE XL (Glucotrol XL) 5 MG 24 hr tabletIndications :Type 2 diabetes mellitus without complication, unspecified whether retirement insulin use (CMS/HCC) TAKE 1 TABLET BY MOUTH EVERY DAY WITH BREAKFAST, DO NOT BREAK, CRUSH, DISSOLVE OR CHEW 90 tablet 1 05/15/19 25 Active FT Calcium 600 MG tablet Take 1 tablet by mouth 2 times daily. 05/15/19 25 Active finasteride (Proscar) 5 MG tablet Take 1 tablet by mouth Once per day. 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 His dpblybuo-uo-cbc brought him to [facility]. Denied headache, chest pain, SOB, n/v/d, or recent illness. States has many year h/o similar recurrent episodes of dizziness that he cannot describe, occasionally falls. ECG previous visit showed sinus arrythmia, IVCD, PACs. ECHO 02/22/2024 showed: Conclusions: - The left ventricular systolic function is normal. The calculated ejection fraction is 66% by biplane method. - No obvious valvular pathology seen on this study. - There is mild dilatation of the ascending aorta measuring 4.20 cm. Pt tells me he already has a follow up scheduled with Dr. Peres his bulk folder Seen by Neurology who ordered Brain MRI that showed: No acute brain abnormality. No gross abnormal enhancing lesion. 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 Assessment & Plan (02/14/2024 4:19 PM EST): Pt seen at our [facility] 12/28/[address] Lloyd Puckett After pt was walking on sidewalk, felt sudden dizzy, unable to describe dizziness, and the next thing he remembers is being on the ground with facial injuries, abrasions on knees and left wrist. His gfbcwluj-gv-rvl brought him to [facility]. Denied headache, chest pain, SOB, n/v/d, or recent illness. States has many year h/o similar recurrent episodes of dizziness that he cannot describe, occasionally falls. ECG today shows sinus arrythmia, IVCD, PACs. Pt tells me he already has a follow up scheduled with Dr. Peres his bulk folder Plan: Obtain ECHO, ECG, EEG. CT of brain Cardiology and Neurology Consult Prostate cancer, primary, wi metastasis from prostate to other site 08/21/2023 Assessment & Plan (05/15/2024 11:07 AM EDT): Patient here for a follow up He has a history of Elevated PSA 06/19/2023 12.57 for which he was under the care of Urologist On 10/11/2023 he underwent a prostate biopsy 10/11/2023 that showed mostly benign tissue, only one sample showed: Atypical small acinar proliferation. Pt has a Hx of Thoracic aortic aneurysm and as part of surveillance he underwent a CTA of Chest 04/03/2024 that showed; 34 x 35 mm right paratracheal mass versus conglomerate lymphadenopathy. Pt was referred to Pulmonoogy, seen by Dr Castaneda 04/16/2024 and on 04/28/2024 underwent FNA. Pathology showed metastatic Prostate CA. Pt was already being followed by Urology, who last saw him 05/07/[address] and [address] a PET CT, depending on the results of the PET CT, Dr Rico will make recommendations Will continue follow with urology Assessment & Plan (11/22/2023 11:32 AM EDT): Elevated PSA 06/19/2023 12.57 Seen by Urologist S/p prostate biopsy 10/11/2023 showed mostly benign tissue, only one sample showed: Atypical small acinar proliferation Will continue follow with urology Assessment & Plan (08/21/2023 11:38 AM EDT): Elevated PSA 06/19/2023 12.57 Seen by Urologist work up in progress. Pt tells me has appointment for an ultrasound coming up [facility] care 05/11/2022 Assessment & Plan (05/15/2024 10:56 AM EDT): history of Elevated PSA 06/19/2023 12.57 for which he is under the care of Urologist On 10/11/2023 he underwent a prostate biopsy 10/11/2023 that showed mostly benign tissue, only one sample showed: Atypical small acinar proliferation.Pt has a Hx of Thoracic aortic aneurysm and as part of surveillance he underwent a CTA of Chest 04/03/2024 that showed;34 x 35 mm right paratracheal mass versus conglomerate lymphadenopathy. Pt was referred to Pulmonoogy, seen by Dr Castaneda 04/16/2024 and on 04/28/2024 underwent FNA. Pathology showed metastatic Prostate CA. Had Colonoscopy 06/30/[address] Khan Assessment & Plan (11/22/2023 11:36 AM EDT): [...] aneurysm without rupture 017 Assessment & Plan (05/15/2024 10:50 AM EDT): Here for a follow up On 10/30/2016 CTA showed: Mild aneurysmal dilatation of the ascending aorta with maximal transverse dimension of about 4 cm. Mild aneurysmal dilatation of the proximal descending thoracic aorta with maximal transverse dimension of 3.9 cm. Pt was referred to [facility] surgeons. He was seen 11/06/2016 [...] 12 months in a high risk patient. Chest CTA 06/02/2022 Showed stable Ascending aortic aneurysm 4.1 x 4.0 Repeat Chest CTA 03/2024 showed: IMPRESSION: Motion limits accurate evaluation of the aorta. No definite evidence of aortic dissection. Ectatic ascending thoracic aorta measuring up to 43 mm in the axial plane versus 42 mm previously. Ectatic distal aortic arch measuring up to 37 mm in width as before. Query pulmonary arterial hypertension. Assessment & Plan (02/14/2024 11:28 AM EST): Here for a follow up On 10/30/2016 CTA showed: Mild aneurysmal dilatation of the ascending aorta with maximal transverse dimension of about 4 cm. Mild aneurysmal dilatation of the proximal descending thoracic aorta with maximal transverse dimension of 3.9 cm. Pt was referred to [facility] Cardi[facility] surgeons. He was seen 11/06/2016 [...] of 3.9 cm. Pt was referred to [facility] surgeons. He was seen 11/06/2016 [...] of 3.9 cm. Pt was referred to [facility] surgeons. He was seen 11/06/2016 [...] of 3.9 cm. Pt was referred to [facility] surgeons. He was seen 11/06/2016 [...] medications in past year. Assessment & Plan (05/15/2024 11:08 AM EDT): Pt here for a f/u BP remains controlled He is on a regimen of: Norvasc 10 mg po daily,, Carvedilol 3.125 mg po BID ( Rx by Cardiology ) and Lisinopril 40 mg po daily. Pt had a low level of K that has since has resolved Plan: STOP HCtz will continue with current medical regimen. Most recent electrolytes, Bun and Creatinine done on: 06/19/2023 were within normal limits. patient advised to adhere to a low sodium diet and encouraged about medication compliance. Assessment & Plan (02/14/2024 11:27 AM EST): [...] stable for >1 year Assessment & Plan (05/15/2024 10:57 AM EDT): Pt here for a f/u regarding his DM Today controlled He is on a regimen of: Metformin 1000 mg po BID, Glipizide XL 5mg po daily and Actos 45 mg po daily Hgb A1c 05/15/2024: Eye exam done by Dr. Hopper Microalbumin checked on: 06/19/2023 was: 15.3 Pt on an DANETTE inhibitor. Foot check risk of zero Pt reports compliance with ASA 81 mg po daily Plan: continue current regimen Pt advised to: adhere to diabetic diet Contine to monitor blood sugars regularly Check feet on a daily basis. Follow-up in 4 months Assessment & Plan (02/14/2024 4:14 PM EST): [...] on: 01/12/2021 was: 1.3 Pt on an DAENTTE inhibitor , will repeat Foot check risk of zero Pt reports compliance with ASA 81 mg po daily Plan: Continue current regimen Pt advised to: adhere to diabetic diet Contine to monitor blood sugars regularly Check feet on a daily basis. Follow-up in 4 months Encounters Date Type Department Care Team Description 06/09/2024 Telephone [facility] [address] [place] [address] Balaji Quinones MD Results 06/04/2024 Telephone [facility] [address] [place] [address] Kaci Meadows, HANY 06/03/2024 10:00 AM EDT Clinical Support [facility] [address] [place] [address] Birgit Franklin PharmD Type 2 diabetes mellitus without complication, without long-term current use of insulin ([facility]) (Primary Dx); Mixed hyperlipidemia; Primary hypertension 06/03/2024 Travel 05/27/2024 1:00 PM EDT Office Visit [facility] [address] [place] [address] Abdiel, Kaci, OD Diabetes type 2, no ocular involvement (CMS/HCC) (Primary Dx); Pseudoexfoliation of lens capsule; Combined forms of age-related cataract of both eyes; Dominant drusen, bilateral; Alternating exotropia; Presbyopia 05/27/2024 Travel 05/15/2024 11:00 AM EDT Office Visit [facility] [address] [place] [address] Balaji Quinones MD Prostate cancer, primary, with metastasis from prostate to other site ([facility]) (Primary Dx); Primary hypertension; Type 2 diabetes mellitus without complication, without long-term current use of insulin (CMS/HCC); Aneurysm of ascending aorta without rupture ([facility]); Syncope, unspecified syncope type; Preventative health care 05/15/2024 Orders Only [facility] [address] [place] [address] Balaji Quinones MD Primary hypertension (Primary Dx) 05/15/2024 Telephone [facility] [address] [place] [address] Balaji Quinones MD 05/15/2024 Telephone [facility] [address] [place] [address] Balaji Quinones MD PET-CT 05/15/2024 Travel 05/13/2024 Refill [facility] [address] [place] [address] Balaji Quinones MD 05/11/2024 Refill [facility] [address] [place] [address] Balaji Quinones MD Type 2 diabetes mellitus without complication, unspecified whether watermelon inspector insulin use (CMS/HCC) 05/06/2024 Patient Outreach [facility] [address], [place] [address] Balaji Quinones MD Pre-visit Planning (Pre-visit planning - LVM ) 05/05/2024 Orders Only GENERIC EXTERNAL DATA DEPARTMENT Provider, Generic External Data 05/04/2024 Telephone [facility] [address] [place] [address] Balaji Quinones MD Med Refill 05/01/2024 Orders Only [facility] [address], [place] [address] Balaji Quinones MD Hypokalemia (Primary Dx) 05/01/2024 Telephone [facility] [address], [place] [address] Balaji Quinones MD Chart Prep 05/01/2024 Telephone [facility] [address], [place] [address] Raquel Kirk, RN Appointment Request 04/30/2024 Refill [facility] [address], [place] [address] Balaji Quinones MD Tinea pedis of both feet 04/28/2024 Orders Only GENERIC EXTERNAL DATA DEPARTMENT Provider, Generic External Data 04/20/2024 Refill [facility] [place] [address] Balaji Quinones MD 04/16/2024 Refill [facility] [address], [place] [address] Balaji Quinones MD Dermatitis of lower extremity 04/15/2024 Telephone [facility] [address], [place] [address] Balaji Quinones MD Results 04/14/2024 Orders Only [facility] [address], [place] [address] Balaji Quinones MD Mass in neck (Primary Dx) 04/03/2024 Telephone [facility] [address] [place] [address] Balaji Quinones MD Results 03/25/2024 Refill [facility] [address] [place] [address] Balaji Quinones MD Primary hypertension 03/14/2024 Refill [facility] [address] [place] [address] Balaji Quinones MD Dry eyes from Last 3 Months Immunizations Name Administration [...] your housing situation today? I have karlie prisca 05/15/[address] you li [...] Sign Reading Time Taken Comments Blood Pressure 138/82 06/03/2024 1:42 PM EDT Pulse 65 05/15/2024 10:45 AM EDT Temperature 36.5 ??C (97.7 ??F) 05/15/2024 10:45 AM E DT Respiratory Rate 16 05/15/2024 10:45 AM EDT Oxygen Saturation 98% 05/15/2024 10:45 AM EDT Inhaled Oxygen Concentration - - Weight 58.8 kg (129 lb 9.6 oz) 05/15/2024 10:45 AM EDT Height 160 cm (5' 3 ) 05/15/2024 10:45 AM EDT Body Mass Index 22.96 05/15/2024 10:45 AM EDT Plan of Treatment Upcoming Encounters Date Type Department Care Team (Late st Contact Info) Description 07/22/2024 1:30 PM EDT Office Visit [facility] [address] [place] [address] [phone] Balaji Quinones MD [address] [place] [address] 09/04/2024 11:00 AM EDT Medication Management [facility] [address] [place], [place] [phone] Birgit Franklin, PharmD [address] [place], [place] [phone] Health Maintenance Due Date Last Done Comments CT Colonography 1955 FIT DNA/Cologuard 1955 FIT 1955 FOBT 1955 Sigmoidoscopy 1955 Diabetes: Foot Exam 1964 Diabetes: Urine Protein Screening 06/18/2024 06/19/2023, 01/12/2021, 11/03/2019 Lipid Panel 06/18/2024 06/19/2023, 06/13, 08/16/2021, Additional history exists Diabetes: Hemoglobin A1C 08/13/2024 025, 11/22/2023, 08/21/2023, Additional history exists Alcohol/Substance Use Screening 02/13/2025 02/14/2024 Depression Screening 05/15/2025 05/15/2024, 05/16/19 25 SDOH Screening 05/15/2025 05/15/2024 Tobacco Screening 05/30/2025 05/30/2024 Eye Exam 05/27/2026 05/27/2024, 05/13, 05/27/2024, Additional history exists Colonoscopy 07/11/2027 07/10/2017 Colorectal [...] Procedure Name Priority Date/Time Associated Diagnosis Comments POCT GLUCOSE Routine 05/15/2024 10:47 AM EDT Type 2 diabetes mellitus without complication, without long-term current use of insulin ([facility]) PSA, TOTAL WITH REFLEX TO PSA, FREE [...] 0:11 AM EST Syncope, unspecified syncope type POCT GLYCATED [...] Recently Relevant to Health Maintenance Results * POCT Glucose (05/15/2024 10:47 AM EDT) Glucose Blood, POC 143 60 - 200 mg/dL QC Media Lot # [id number] Lot# Expiration Date Blood Capillary blood specimen / Unknown 05/15/2024 10:47 AM EDT Balaji Donnelly MD POINT OF CARE TEST EN TER/EDIT ORDERABLES Final Result * (ABNORMAL) PSA, Total With Reflex to PSA, Free (05/05/2024 9:25 AM EDT) Pathologist [facility] PSA,Total (Free>4and<10) 49.69(H ) 0.00 - 4.00 ng/mL [facility] Comment:A Free PSA was not [...] Provider LAB BLOOD ORDERAB LES Final Result [facility] [address] [place] [address] [phone] * (ABNORMAL) Basic Metabolic Panel (05/05/2024 9:25 AM EDT) Only the most recent of2 resultswithin the time period is included. Sodium 135 135 - 145 mmol/L [facility] Potassium 4.4 3.3 - 5.1 mmol/L [facility] Chloride 101 96 - 108 mmol/L [facility] Carbon Dioxide 30(H) 22 - 29 mmol/L [facility] Anion Gap 8(L) 12 - 20 [facility] Urea Nitrogen (BUN) 4(L) 9 - 16 mg/dL [facility] Creatinine, Serum 0.75 0.5 - 1.4 mg/dL [facility] Estimated Glomerular Filt Rate >60 [facility] Comment:Chronic Kidney Disea se: Estimated GFR < 60 mL/min/1.12z2Pltlzi Kidney Disease: Estimated GFR < 15 mL/min/1.73m2 Glucose 176(H) 60 - 115 mg/dL [facility] Calcium 8.6 8.4 - 10.2 mg/dL [facility] Blood Venous blood specimen / Unknown 05/05/2024 9:25 AM EDT 05/05/2024 11:36 AM EDT us Balaji Donnelly MD LAB BLOOD ORDERABLES Final Result Performing Organization Address City/State/[facility] Co de Phone Number [facility] [address] [place] [phone] * PSA Stain (04/28/2024 2:20 PM EDT) 04/28/2024 2:20 PM EDT 04/28/2024 2:52 PM EDT Narrative [facility] - 05/08/2024 1:35 PM EDT ----- ------- Name: Paul Alonso ? Age/Sex: 68/M ? : 1955 Unit#: [id number] ?? Attend Dr: Ki Castaneda MD ?Re04/28/24 ?Status: DEP SDC ? Location: HO.SSS ?Disch: ? ----- ------- SPEC : [id number] ? RECD: 04/28/24-1451 ? STATUS: ??SOUT ? REQ NUM: [id number] ? REX: 04/28/24-1420 ? SUBM DR: Ki Castaneda MD ? ENTERED: ??04/28/24-1453 ?SP TYPE: Cytology ? OTHR DR: Balaji Sanderson MD ?? ORDERED: ??PSA Stain, Fine Ndl Asp, Cytokeratin, S 100, Synaptophysin, Cyto- enhanced, ?Chromogranin, IHC, Add. immunos/14, Multiplex IHC, CD68, CDX-2, MOC-31, p40, ?PAX-8, PIN4, TTF-1 COMMENTS: Cell Block B sent to [facility] for multiple IHC's on 05/01/24. ? Diagnosis [...] CONTINUED ON NEXT PAGE ----- ------- Name: Alonso,Paul ? Age/Sex: 68/M ? : 1955 Unit#: [id number] ?? Attend Dr: Ki Castaneda MD ?Re04/28/24 ?Status: DEP SDC ? Location: HO.SSS ?Disch: ? ----- ------- SPEC : [id number] ? RECD: 04/28/24-1451 ? STATUS: ??SOUT ? REQ NUM: [id number] ? REX: 04/28/24-1420 ? SUBM DR: Ki [...] pass: ??Adequate; lesional cells present. [place], 04/28/2024 ([facility]) This case was reviewed intradepartmentally. Special stains ordered and performed: ??Immunostains for synaptophysin, chromogranin, Ki-67, TTF-1, MOC-31, CD20, CD56, CK20, CK7, PAX8, CD68, jolly-cytokeratin, p40, S100, PSA, CDX2, CD117 on cell block B; special stain PAS on cell block. Technical services for CD20, CD56, chromogranin, MOC31, CK20, CK7, CK20, synaptophysin and TTF-1 immunohistochemistry studies performed at [email or web address] Jennifer [place]reg[place], [place]; CLIA #[id number] Copies To: ?? Balaji Sanderson MD ?? [facility] ?? [address] [facility] ?? [place] [address] ?? [phone] ?? Ki Castaneda MD ?? [facility] ?? [address] ?? [place] [address] ?? [phone] ----- ------- Signed (signature on file) Malini Quach MD 05/08/24 1335 ? ----- ------- ? END OF REPORT ? Generic External Data Provider LAB PATHOLOGY ORD ERABLES Final Result Performing Organization Address [facility] de Phone Number [facility] [address] [place] [phone] * Gram stain (04/28/2024 2:20 PM EDT) 04/28/2024 2:20 PM EDT 04/29/2024 8:42 AM EDT Comment:Bronc Wash Narrative [facility] - 04/29/2024 8:50 AM EDT Test not performed Routine Culture Test not performed Unable to perform culture due to laboratory error. Sample already processed by the pathology department. Specimen Source: Bronchial Washings Generic External Data Provider LAB MICROBIOLOGY - GENERAL ORDERABLES Final Result Performing Organization Address [facility] de Phone Number [facility] [address] [place] [phone] * (ABNORMAL) Glucose, Whole Blood (04/28/2024 10:28 AM EDT) Glucose, Whole Blood 166(H) 60 - 115 mg/dL [facility] Comment:METER #: [id number] 04/28/2024 10:2 8 AM EDT 04/28/2024 10:33 AM EDT Generic External Data Provider LAB BLOOD ORDERAB LES Final Result Performing Organization Address [facility] de Phone Number [facility] [address] [place] [address] [phone] * Mr Brain w/ and w/o Contrast (04/23/2024 10:50 AM EDT) Anatomical Region Laterality Modality Brain Magnetic Resonan ce 04/23/2024 10:5 0 AM EDT Narrative 04/23/2024 12:50 PM EDT ? [facility] ?[address] ?[place] [address] ? Magnetic Resonance Report ? Signed ? Patient: Alonso,Paul ?MR#: [id number] ?? 33 ? : 1955 ?Acct:[id number] ? Age/Sex: 68 / M ?ADM Date: 04/23/24 ? Loc: HO.MRI ? Attending Dr: Jessica Palacios MD ? Ordering Physician: Jessica Palacios MD ?? Date of Service: 04/23/24 ?? Procedure(s): MR head/brain wo/w con ?? Accession Number(s): [id number] ? cc: Balaji Sanderson MD; Jessica Palacios [...] DD/ 1050 ? TD/TT: 04/23/24 1115 ? Carpet Installation Specialist: ? Procedure Note Donlibbyinterpreter, Image - 04/23/[address] [address] Magnetic Resonance Report Signed Patient: Jayda Alonso#: [id number] 33 : 5Acct:[id number] Age/Sex: 68 / MADM Date: 04/23/24 Loc: HO.MRI Attending Dr: Jessica Palacios MD Ordering Physician: Jessica Palacios MD Date of Service: 04/23/24 Procedure(s): MR head/brain wo/w con Accession Number(s): [id number] cc: Balaji Sanderson MD; Jessica Palacios MD [...] 04/23/24 1247 DD/ 1050 TD/TT: 04/23/24 1115 Carpet Installation Specialist: [facility] External Provider IMG MRI PROCEDURES Final Result * Referral to Neurology (04/10/2024) Balaji Donnelly MD OUTPATIENT REFERRAL O RDERABLES Final Result * CTA Chest w/ and w/o Contrast (04/03/2024 12:33 PM EST) Anatomical Region Laterality Modality Body, Chest Computed Tomogra phy 04/03/2024 12:3 3 PM EST Narrative 04/03/2024 12:34 PM EST ? [facility] ?[address] ?[place] [address] ? CT Scan Report ? Signed with Addenda ? Patient: Alonso,Paul ?MR#: [id number] ?? 33 ? : 1955 ?Acct:[id number] ? Age/Sex: 68 / M ?ADM Date: 04/03/24 ? Loc: HO.CT ? Attending Dr: Balaji Sanderson MD ? Ordering Physician: Balaji Sanderson MD ?? Date of Service: 04/03/24 ?? Procedure(s): CT angio chest aorta ?? Accession Number(s): [id number] ? cc: Balaji Sanderson MD ? Report Number: ?? [id number]: Total DLP = ??212.27 mGy-cm ?ADDENDUM ?? [...] DD/ 1233 ? TD/TT: 04/03/24 1233 ? Carpet Installation Specialist: ? Procedure Note Donotuseinterpreter, Image - 04/04/[address] [address] [address] Scan Report Signed with Loni Patient: Jayda Alonso#: [id number] 33 : 5Acct:[id number] Age/Sex: 68 / MADM Date: 04/03/24 Loc: HO.CT Attending Dr: Balaji Sanderson MD Ordering Physician: Balaji Sanderson MD Date of Service: 04/03/24 Procedure(s): CT angio chest aorta Accession Number(s): [id number] cc: Balaji Sanderson MD Report Number: [id number]: Total DLP = 212.27 mGy-cm ADDENDUM This [...] 04/03/24 1234 DD/ 1233 TD/TT: 04/03/24 1233 Carpet Installation Specialist: us Balaji Donnelly MD IMG CT PROCEDURES Jaspal tennille Result - Final * CT Head w/o Contrast (04/03/2024 10:11 AM EST) Anatomical Region Laterality Modality Head, Neck Computed Tomogra phy 04/03/2024 10:1 1 AM EST Narrative 04/03/2024 10:12 AM EST ? [facility] ?[address] ?[place] [address] ? CT Scan Report ? Signed ? Patient: Alonso,Paul ?MR#: [id number] ?? 32 ? : 1955 ?Acct:[id number] ? Age/Sex: 68 / M ?ADM Date: 02/20/25 ? Loc: HO.CT ? Attending Dr: Balaji Sanderson MD ? Ordering Physician: Balaji Sanderson MD ?? Date of Service: 04/03/24 ?? Procedure(s): CT head/brain wo IV con ?? Accession Number(s): [id number] ? cc: Balaji Sanderson MD ? Report Number: ?? [id number]: Total DLP = ??672.66 mGy-cm ? CLINICAL HISTORY: syncope ? CT head without contrast ? Comparison: None ? Findings: ?? No intra-axial mass, midline shift, hydrocephalus, or acute hemorrhage. ?? Xmmj-oe-qavjifbk age-related cerebral hemispheric white matter changes. ?? [...] DD/ 1011 ? TD/TT: 04/03/24 1011 ? Carpet Installation Specialist: ? Procedure Note Alytashiesterjuan, Image - 04/03/[address] [place] [address] [address] Scan Report Signed Patient: Jayda Alonso#: [id number] 33 : 5Acct:[id number] Age/Sex: 68 / MADM Date: 04/03/24 Loc: HO.CT Attending Dr: Balaji Sanderson MD Ordering Physician: Balaji Sanderson MD Date of Service: 04/03/24 Procedure(s): CT head/brain wo IV con Accession Number(s): [id number] cc: Balaji Sanderson MD Report Number: [id number]: Total DLP = 672.66 mGy-cm CLINICAL HISTORY: syncope CT head without contrast Comparison: None Findings: No intra-axial mass, midline shift, hydrocephalus, or acute hemorrhage. Xvcu-la-hdyxgluc age-related cerebral hemispheric white matter changes. Small [...] 04/03/24 1012 DD/ 1011 TD/TT: 04/03/24 1011 Carpet Installation Specialist: Balaji Donnelly MD IMG CT PROCEDURES Fin al Result * (ABNORMAL) POCT HGB A1C (02/14/2024 11:31 AM EST) Hemoglobin A1C 6.6(A) 4.0 - 6.0 % QC Media Lot # [id number] Lot# Expiration Date 398 Blood 02/14/2024 11:3 1 AM EST Balaji Donnelly MD POINT OF CARE TEST EN TER/EDIT ORDERABLES Final Result * (ABNORMAL) Lipid Panel with Reflex to Direct LDL (06/19/2023 1:23 PM EDT) Triglycerides 158(H) <150 mg/dL [facility] Comment:Desirable Triglyceri de: less than 150 mg/dLBorderline High Triglyceride 150-199 mg/dLHigh Triglyceride: 200-499 mg/dLVery High Triglyceride: greater than or equal to 5OO mg/dL Cholesterol 127 <200 mg/dL [facility] Comment:Desirable Cholestero l: less than 200 mg/dLBorderline High Cholesterol: 200-239 mg/dLHigh Cholesterol: greater than 239 mg/dL LDL Cholesterol Calculated 66 <100 mg/dL [facility] Comment:Desirable LDL: less than 100 mg/dLNear Optimal/Above Optimal LDL: 110- 129 mg/dLBorderline High LDL: 130-159 mg/dLHigh LDL: 160-189 mg/dLVery High LDL: greater than or equal to 190 mg/dL HDL Cholesterol 30(L) >40 mg/dL [facility] Comment:Desirable HDL: great er than 40 mg/dL Note: This HDL assay may give artificially low results in patients with liver disease. Blood 06/19/2023 1:23 PM EDT 06/19/2023 4:12 PM EDT Balaji Donnelly MD LAB BLOOD ORDERABLES Final Result Performing Organization Address [facility] Co de Phone Number [facility] [address] [place] [phone] * Albumin, Random Urine W/Creatinine (06/19/2023 12:00 AM EDT) Creatinine, Urine 137.18 mg/dL [facility] Microalbumin Urine 21.0 mg/L [facility] Microalbum Creatinine Ratio Ur 15.3 <30 ug/mg cr [facility] Comment:Albumin/Creatinine R atio Reference Ranges: Normal: < 30 ug/mg creatinine Microalbuminuria: 30 - 300 ug/mg creatinineClinical Albuminuria: > 300 ug/mg creatinine Urine (Urine, Random) 06/19/2023 06/19/2023 Balaji Donnelly MD LAB URINE ORDERABLES Final Result Performing Organization Address [facility] de Phone Number [facility] [address] [place] [phone] * Hepatitis C Antibody with Reflex to HCV, RNA, Quantitative, Real-Time PCR (07/05/2022 8:13 AM EDT) Hepatitis C Antibody NON-REACT MADDY NON-REACT MADDY [facility] [place] Index 0.04 <1.00 [facility] Comment: HCV antibody was non-reactive. There is no laboratory evidence of HCV infection. In most cases, no further action is required. However, if recent HCV exposure is suspected, a test for HCV RNA (test code 53810) is suggested. For additional information please refer to http://education.raksul.VenueJam/faq/TBH08x3 (This link is being provided for informational/ educational purposes only.) Blood Venous blood specimen / Unknown 07/05/2022 8:13 AM EDT 07/05/2022 8:14 AM EDT Narrative [facility] - 07/06/2022 11:54 AM EDT FASTING:YES FASTING: YES Balaji Donnelly MD LAB BLOOD ORDERABLES Final Result [facility] [address], [place] [address] [facility] [address] [place] [address] * Colonoscopy (07/10/2017) Pathologist [facility] Colonoscopy Normal Normal 07/10/2017 Shikha Morel - 07/10/2017 3:47 PM EDT Recommended 10 year follow up ( [facility] ) Historical Provider HEALTH MAINTENANCE Final Result from Last 3 Months or Most Recently Relevant to Health Maintenance [place] [address] [place] [address] [place] [phone] Care Teams Resource Analyst Relationship Specialty Start Date End Date Balaji Quinones MD [address] [place] [address] PCP - General Internal Medicine 11/25/13 Birgit Franklin PharmD [address] [place] [address] Pharmacist Internal Medicine 06/06/24
== END 2024-06-11 16:25 | disposition home or self-care (01) ==
LOC: HO.HUSH 15:11
PROVIDERS: PCP Internal Medicine; Visit Provider Urology
DX: C61 Malignant neoplasm of prostate (principal); C77.1 Secondary and unspecified malignant neoplasm of intrathoracic lymph nodes
CPT/HCPCS: 99214; G2211

== ENCOUNTER → 2024-06-11 15:10 | Outpatient (BNVA) | payer MEDICARE, MEDICAID, SELFPAY | PROVIDERS: PCP Internal Medicine; Visit Provider Urology | DX: C61 Malignant neoplasm of prostate (principal); C77.1 Secondary and unspecified malignant neoplasm of intrathoracic lymph nodes | CPT/HCPCS: 99212 ==

== ENCOUNTER 2024-06-24 08:30 | Outpatient (REF) | payer MEDICARE, MEDICAID, SELFPAY ==
--- NOTE | ~2024-06-24 | MR_ITS ---
EXAMINATION: MR PROSTATE WITHOUT THEN WITH IV CONTRAST HISTORY: ELEVATED PSA TECHNIQUE: 1.5T body coil survey of the pelvis was performed. Phase array coil imaging of the prostate was performed in multiplanar high resolution axial, coronal, sagittal fast spin echo T2 and axial T1 weighted imaging sequences. Axial diffusion imaging at intermediate and high field performed with ADC mapping. Next, mL Gadavist was given by intravenous infusion, and dynamic axial imaging performed. COMPARISON: There are no prior studies for comparison. CLINICAL DATA: Most recent PSA: 46.69 ng/mL on 05/05/2024 PSA Density: 1.80 ng/mL squared Prostate Biopsy: Previous biopsy on 10/11/2023 demonstrated an atypical small acinar proliferation. Fine-needle aspiration of a mediastinal lymph node on 04/28/2024 demonstrated metastatic adenocarcinoma, consistent with prostate primary. FINDINGS: Prostate size: 4.1 x 4.2 x 2.9 cm. Calculated prostate volume is 26.0 mL. Hemorrhage: None. Transitional Zone: There is mild heterogeneous nodular hypertrophy of the transitional zone. Peripheral Zone: No discrete focus of abnormal signal intensity is identified in the peripheral zone to correspond to the patient's primary neoplasm. There are no foci of restricted diffusion. Seminal Vesicles/Ejaculatory Ducts: Symmetric and normal in signal and caliber. Pelvic Lymph Nodes: There are enlarged right external iliac lymph nodes measuring up to 2.8 x 1.9 cm an additional left femoral nodes measuring up to 2.2 x 1.6 cm. Marrow Signal: Normal marrow signal and enhancement without focal lesion identified. MR/MR Prostate wo/w con IMPRESSION: 1. No discrete focus of abnormal signal intensity is identified in the prostate gland to correspond to the patient's primary neoplasm. 2. Left external iliac and femoral lymphadenopathy as described. Electronically signed by: Bladimir Gupta MD 06/24/2024 11:37 AM EDT
[2024-06-24] MEDS: gadobutroL 7.5 ML VIAL IVPUSH (10:10)
== END 2024-06-24 08:31 | disposition home or self-care (01) ==
LOC: HO.MRI 08:30
PROVIDERS: PCP Internal Medicine; Visit Provider Urology
DX: R97.20 Elevated prostate specific antigen [PSA] (principal)
CPT/HCPCS: 72197; A9585

== ENCOUNTER → 2024-06-24 09:00 | Outpatient (BNV) | payer MEDICARE, MEDICAID, SELFPAY | PROVIDERS: PCP Internal Medicine; Visit Provider Radiology Diagnostic Radiology | DX: R59.0 Localized enlarged lymph nodes (principal) | CPT/HCPCS: 72197 ==

== ENCOUNTER 2024-06-26 13:59 | Outpatient (AMB) | payer MEDICARE, MEDICAID, SELFPAY ==
--- OUTSIDE RECORDS SUMMARY | 2024-06-26 14:41 | XMS_ITS | Encounter Summary ---
Author Organization [employer] Address 75 [facility] 7t [place] [address] Care Team Providers Care Fisher Purse Seine Name Role Phone Balaji Quinones MD Primary Care Provide r Kristi Giles PharmD Unavailable [phone] Birgit Franklin PharmD Unavailable [phone] Encounter Details Date Type Department Care Team (Late st Contact Info) Description 01/28/2022 Abstract [facility] [address] [place] [address] Kristi Giles, PharmD [address] [place] [address] Social History Tobacco Use Types Packs/Day Years [...] Description 07/22/2024 1:30 PM EDT Office Visit [facility] [address] [place] [address] [phone] Balaji Quinones MD [address] [place] [address] 09/04/2024 11:00 AM EDT Medication Management [facility] [address] [place] [address] Birgit Franklin PharmD [address] [place] [address] documented as of this encounter Goals Goal [...] on filedocumented in this encounter Care Teams Fisher Purse Seine Relationship Specialty Start Date End Date Balaji Quinones MD [address] [place] [address] PCP - General Internal Medicine 11/25/13 Kristi Giles PharmD [address] [place] [address] Pharmacist Internal Medicine 01/30/22 06/05/24 Birgit Franklin PharmD [address] [place] [address] Pharmacist Internal Medicine 06/06/24 documented as of this encounter
--- OUTSIDE RECORDS SUMMARY | 2024-06-26 14:41 | XMS_ITS | Encounter Summary ---
Author Organization [employer] Address 75 [facility] 7t [place] [address] Care Team Providers Care Sem Manager Name Role Phone Balaji Quinones MD Primary Care Provide r Kristi Giles PharmD Unavailable [phone] Birgit Franklin PharmD Unavailable [phone] Reason for Visit * Reason Comments Med Refill Encounter Details Date Type Department Care Team (Late st Contact Info) Description 06/11/2023 Refill [facility] [address] [place], [place] [phone] Balaji Quinones MD [address] [place] [address] Swelling of right middle finger Social History [...] Description 07/22/2024 1:30 PM EDT Office Visit [facility] [address] [place] [phone] Balaji Quinones MD [address] [place] [address] 09/04/2024 11:00 AM EDT Medication Management [facility] [address] [place] [address] Birgit Franklin PharmD [address] [place] [address] documented as of this encounter Goals Goal [...] documented as of this encounter Care Teams Sem Manager Relationship Specialty Start Date End Date Balaji Quinones MD [address] [place] [address] PCP - General Internal Medicine 11/25/13 Kristi Giles, Quentin [address] [place] [address] Pharmacist Internal Medicine 01/30/22 06/05/24 Birgit Franklin PharmD [address] [place] [address] Pharmacist Internal Medicine 06/06/24 documented as of this encounter
--- OUTSIDE RECORDS SUMMARY | 2024-06-26 14:41 | XMS_ITS | Encounter Summary ---
Author Organization [employer] Address 75 [facility] 7t [place] [address] Care Team Providers Care Inletter Name Role Phone Balaji Quinones MD Primary Care Provide r Kristi Giles PharmD Unavailable [phone] Birgit Franklin PharmD Unavailable [phone] Reason for Visit * Reason Comments Med Refill Encounter Details Date Type Department Care Team (Late st Contact Info) Description 08/01/2023 Refill [facility] [address] [place] [address] Vani Stallworth MD [address] [place] [address] Folliculitis Social History Tobacco Use Types Packs/Day [...] Description 07/22/2024 1:30 PM EDT Office Visit [facility] [address] [place] [address] Balaji Quinones MD [address] [place] [address] 15698 09/04/2024 11:00 AM EDT Medication Management [facility] [address] [place] [address] Birgit Franklin PharmD [address] [place] [address] documented as of this encounter Goals Goal [...] documented as of this encounter Care Teams Inletter Relationship Specialty Start Date End Date Balaji Quinones MD [address] [place] [address] PCP - General Internal Medicine 11/25/13 Kristi Giles, Quentin [address] [place] [address] Pharmacist Internal Medicine 01/30/22 06/05/24 Birgit Franklin PharmD [address] [place] [address] 31667 Pharmacist Internal Medicine 06/06/24 documented as of this encounter
--- OUTSIDE RECORDS SUMMARY | 2024-06-26 14:42 | XMS_ITS | Encounter Summary ---
Author Organization [employer] Address 75 [facility] 7t [place] [address] Care Team Providers Care Vamp Seamer Name Role Phone Balaji Quinones MD Primary Care Provide r Kristi Giles PharmD Unavailable [phone] Birgit Franklin PharmD Unavailable [phone] Reason for Visit * Reason Comments Med Refill Encounter Details Date Type Department Care Team (Late st Contact Info) Description 03/01/[address] [facility] [address] [place] [phone] Balaji Quinones MD [address] [place] [address] [phone] Type 2 diabetes mellitus without complication, unspecified whether detention insulin use ([facility]) Social History Tobacco Use Types [...] 07/22/2024 1:30 PM EDT Office Visit [facility] [address] [place], [place] [phone] Balaji Quinones MD [address] [place] [address] [phone] 09/04/2024 11:00 AM EDT Medication Management [facility] [address] [place] [address] Birgit Franklin PharmD 230 [place] [address] documented as of this encounter Goals Goal [...] without complication, unspecified whether detention insulin use ([facility]) documented in this encounter Care Teams Vamp Seamer Relationship Specialty Start Date End Date Balaji Quinones MD [address] [place] [address] PCP - General Internal Medicine 11/25/13 Kristi Giles PharmD [address] [place] [address] Pharmacist Internal Medicine 01/30/22 06/05/24 Birgit Franklin PharmD [address] [place] [address] Pharmacist Internal Medicine 06/06/24 documented as of this encounter
--- OUTSIDE RECORDS SUMMARY | 2024-06-26 14:42 | XMS_ITS | Encounter Summary ---
Author Organization [employer] Address 75 [facility] 7t [place] [address] Care Team Providers Care Rehab Specialist Name Role Phone Balaji Quinones MD Primary Care Provide r Kristi Giles PharmD Unavailable [phone] Birgit Franklin PharmD Unavailable [phone] Reason for Visit * Reason Onset Date Comments Med Refill 01/30/2023 Encounter Details Date Type Department Care Team ([facility] st Contact Info) Description 01/30/2023 Telephone [facility] [address] [place] [address] Balaji Quinones MD [address] [place] [address] Med Refill Social History Tobacco Use Types [...] to PCP. * Telephone Encounter - Lisa Coffeyaquiles Fenton - 01/30/2023 10:00 AM EST Tc from pt requesting med refill on Aspirin Low Dose 81 MG EC tablet Please sent to [facility] - [place], [place] - [address] [facility] Pt is due on holidays but is requesting if medication could be given before than. documented in this encounter Plan of Treatment Upcoming Encounters Date Type Department Care Team (Late st Contact Info) Description 07/22/2024 1:30 PM EDT Office Visit [facility] [address] [place] [address] Balaji Quinones MD [address] [place] [address] 09/04/2024 11:00 AM EDT Medication Management [facility] [address] [place] [address] [phone] Birgit Franklin PharmD [address] [place] [address] documented as of this encounter Goals Goal [...] 138/82(2024 1:42 PM EDT) No Kristi Giles PharmIvan Follow the DASH diet Diet No Kristi Giles PharmD Note: Look for foods that are low sodium. documented as of this encounter Visit Diagnoses Not on filedocumented in this encounter Care Teams Rehab Specialist Relationship Specialty Start Date End Date Balaji Quinones MD [address] [place] [address] 47953 PCP - General Internal Medicine 11/25/13 Kristi Giles, SarayD [address] [place] [address] Pharmacist Internal Medicine 01/30/22 06/05/24 Birgit Franklin, SarayD [address] [place] [address] Pharmacist Internal Medicine 06/06/24 documented as of this encounter
--- OUTSIDE RECORDS SUMMARY | 2024-06-26 14:42 | XMS_ITS | Encounter Summary ---
Author Organization [employer] Address 75 [facility] 7t [place] [address] Care Team Providers Care Rouge Miller Name Role Phone Balaji Quinones MD Primary Care Provide r Kristi Giles PharmD Unavailable [phone] Birgit Franklin PharmD Unavailable [phone] Reason for Visit * Reason Comments Med Refill Encounter Details Date Type Department Care Team (Late st Contact Info) Description 03/08/2023 Refill [facility] [address] [place] [address] Balaji Quinones MD [address] [place] [address] [phone] Folliculitis Social History Tobacco Use Types Packs/Day [...] Description 07/22/2024 1:30 PM EDT Office Visit [facility] [address] [place] [address] [phone] Balaji Quinones MD [address] [place] [address] [phone] 09/04/2024 11:00 AM EDT Medication Management [facility] [address] [place] [address] Birgit Franklin PharmD [address] [place] [address] documented as of this encounter Goals Goal [...] follicles documented in this encounter Care Teams Rouge Miller Relationship Specialty Start Date End Date Balaji Quinones MD [address] [place] [address]94 PCP - General Internal Medicine 11/25/13 Kristi Giles PharmD [address] [place] [address] 40060 Pharmacist Internal Medicine 01/30/22 06/05/24 Birgit Franklin [place] [address] Pharmacist Internal Medicine 06/06/24 documented as of this encounter
--- OUTSIDE RECORDS SUMMARY | 2024-06-26 14:42 | XMS_ITS | Encounter Summary ---
Author Organization [employer] Address 75 [facility] 7t [place] [address] Care Team Providers Care Pipe Cleaner Name Role Phone Balaji Quinones MD Primary Care Provide r Kristi Giles PharmD Unavailable [phone] Birgit Franklin PharmD Unavailable [phone] Reason for Visit * Reason Comments Med Refill Encounter Details Date Type Department Care Team (Late Contact Info) Description 10/27/2022 Refill [facility] [address] [place] [address] Balaji Quinones MD [address] [place] [address] 11904 Dermatitis of lower extremity Social History Tobacco [...] Description 07/22/2024 1:30 PM EDT Office Visit [facility] [address] [place] [address] [phone] Balaji Quinones MD [address] [place] [address] 362[address] 09/04/2024 11:00 AM EDT Medication Management [facility] [address] [place] [address] Birgit Franklin PharmD [address] [place] [address] documented as of this encounter Goals Goal [...] extremity documented in this encounter Care Teams Pipe Cleaner Relationship Specialty Start Date End Date Balaji Quinones MD [address] [place] [address] PCP - General Internal Medicine 11/25/13 Kristi Giles PharmD [address] [place] [address] 43754 Pharmacist Internal Medicine 01/30/22 06/05/24 Birgit Franklin PharmD [address] [place] [address] 13385 Pharmacist Internal Medicine 06/06/24 documented as of this encounter
--- OUTSIDE RECORDS SUMMARY | 2024-06-26 14:42 | XMS_ITS | Encounter Summary ---
Author Organization [employer] Address 75 [facility] 7t [place] [address] Care Team Providers Care Lard Renderer Name Role Phone Balaji Quinones MD Primary Care Provide r Kristi Giles PharmD Unavailable [phone] Birgit Franklin PharmD Unavailable [phone] Reason for Visit * Reason Comments Med Refill Encounter Details Date Type Department Care Team (Late st Contact Info) Description 01/30/2023 Refill [facility] [address] [place] [address] Balaji Quinones MD [address] [place], [place] [phone] Social History Tobacco Use Types Packs/Day Years [...] 1:30 PM EDT Office Visit [facility] [address] [place] [address] [phone] Balaji Quinones MD [address] [place] [address] 8[address] 09/04/2024 11:00 AM EDT Medication Management [facility] [address] [place] [address] 8[address]16 Birgit Franklin PharmD [address] [place] [address] documented as of this encounter Goals Goal [...] on filedocumented in this encounter Care Teams Lard Renderer Relationship Specialty Start Date End Date Balaji Quinones MD [address] [place] [address] 10611 PCP - General Internal Medicine 11/25/13 Kristi Giles PharmD [address] [place] [address]24 Pharmacist Internal Medicine 01/30/22 06/05/24 Birgit Franklin PharmD [address] [place] [address] Pharmacist Internal Medicine 06/06/24 documented as of this encounter
--- OUTSIDE RECORDS SUMMARY | 2024-06-26 14:42 | XMS_ITS | Encounter Summary ---
Author Organization [employer] Address 75 [facility] 7t [place] [address] Care Team Providers Care Director Of Program Management Name Role Phone Balaji Quinones MD Primary Care Provide r Kristi Giles PharmD Unavailable [phone] Birgit Franklin PharmD Unavailable [phone] Reason for Visit * Reason Comments Med Refill Encounter Details Date Type Department Care Team (Late st Contact Info) Description 09/17/[address] [facility] [address] [place] [address] Balaji Quinones MD [address] [place] [address] Dry eyes Social History Tobacco Use Types [...] Description 07/22/2024 1:30 PM EDT Office Visit [facility] [address] [place] [address] [phone] Balaji Quinones MD [address] [place] [address] 09/04/2024 11:00 AM EDT Medication Management [facility] [address] [place] [phone] Birgit Franklin PharmD [address] [place] [address] documented as of this encounter Goals Goal [...] insufficiency documented in this encounter Care Teams Director Of Program Management Relationship Specialty Start Date End Date Balaji Quinones MD [address] [place] [address] 16940 PCP - General Internal Medicine 11/25/13 Kristi Giles PharmD [address] [place] [address]48 Pharmacist Internal Medicine 01/30/22 06/05/24 Birgit Franklin PharmD [address] [place] [address] Pharmacist Internal Medicine 06/06/24 documented as of this encounter
--- OUTSIDE RECORDS SUMMARY | 2024-06-26 14:42 | XMS_ITS | Encounter Summary ---
Author Organization [employer] Address 75 [facility] 7t [place] [address] Care Team Providers Care Ceramic Painter Name Role Phone Balaji Quinones MD Primary Care Provide r Kristi Giles PharmD Unavailable [phone] Birgit Franklin PharmD Unavailable [phone] Reason for Visit * Reason Comments Med Refill Encounter Details Date Type Department Care Team (Late Contact Info) Description 10/27/2022 Refill [facility] [address] [place] [phone] Clau Pascual ANP [address] [place] [address] Tinea pedis of both feet Social History [...] Description 07/22/2024 1:30 PM EDT Office Visit [facility] [address] [place] [phone] Balaji uQinones MD [address] [place] [address] 024[address] 09/04/2024 11:00 AM EDT Medication Management [facility] [address] [place] [phone] Birgit Franklin PharmD [address] [place] [address] documented as of this encounter Goals Goal [...] feet documented in this encounter Care Teams Ceramic Painter Relationship Specialty Start Date End Date Balaji Quinones MD [address] [place] [address] PCP - General Internal Medicine 11/25/13 Kristi Giles PharmD [address] [place] [address] Pharmacist Internal Medicine 01/30/22 06/05/24 Birgit Franklin PharmD [address] [place] [address] Pharmacist Internal Medicine 06/06/24 documented as of this encounter
--- OUTSIDE RECORDS SUMMARY | 2024-06-26 14:42 | XMS_ITS | Encounter Summary ---
Author Organization [employer] Address [address] 7t [place] [address] Care Team Providers Care Commissioner Of Relocation Services Name Role Phone Balaji Quinones MD Primary Care Provide r Birgit Franklin PharmD Unavailable [phone] Encounter Details Date Type Department Care Team (Late st Contact Info) Description 06/24/2024 Orders Only [facility] External Provider, [facility] Social History Tobacco Use Types Packs/Day Years [...] Description 07/22/2024 1:30 PM EDT Office Visit [facility] [address] [place] [address] Balaji Quinones MD [address] [place] [address] 09/04/2024 11:00 AM EDT Medication Management [facility] 230 [place], [place] [phone] Birgit Franklin PharmD 230 [place] [address] documented as of this encounter Goals Goal [...] Name Priority Date/Time Associated Diagnosis Comments MR PROSTATE W AND WO CONTRAST Routine 06/24/2024 9:00 AM EDT documented in this encounter Results * MR Prostate w and w/o Contrast (06/24/2024 9:00 AM EDT) Anatomical Region Laterality Modality Magnetic Resonan ce 06/24/2024 9:00 AM EDT Narrative 06/24/2024 11:40 AM EDT ? [facility] ?[address] ?[place] [address] ? Magnetic Resonance Report ? Signed ? Patient: Alonso,Paul ?MR#: [id number] ?? 32 ? : 1955 ?Acct:[id number] ? Age/Sex: 68 / M ?ADM Date: 06/24/24 ? Loc: HO.MRI ? Attending Dr: Lm Rico MD ? Ordering Physician: Lm Rico MD ?? Date of Service: 06/24/24 ?? Procedure(s): MR Prostate wo/w con ?? Accession Number(s): [id number] ? cc: Lm Rico MD; Balaji Sanderson MD ? EXAMINATION: ??MR PROSTATE WITHOUT THEN WITH IV CONTRAST ? HISTORY: ?? ELEVATED PSA ? TECHNIQUE: ?? 1.5T body coil survey of the pelvis was performed. Phase ?? array coil imaging of the prostate was performed in multiplanar high ?? resolution axial, coronal, sagittal fast spin echo T2 and axial T1 ?? weighted imaging sequences. Axial diffusion imaging at intermediate and ?? high field performed with ADC mapping. ??Next, mL Gadavist was given by ?? intravenous infusion, and dynamic axial imaging performed. ? COMPARISON: There are no prior studies for comparison. ? CLINICAL DATA: ? Most recent PSA: ??46.69 ng/mL on 05/05/2024 ?? PSA Density: 1.80 ng/mL squared ? Prostate Biopsy: ??Previous biopsy on 10/11/2023 demonstrated an atypical ?? small acinar proliferation. Fine-needle aspiration of a mediastinal ?? lymph node on 04/28/2024 demonstrated metastatic adenocarcinoma, ?? consistent with prostate primary. ? FINDINGS: ?? Prostate size: 4.1 x 4.2 x 2.9 cm. Calculated prostate volume is 26.0 ?? mL. ? Hemorrhage: ??None. ? Transitional Zone: ? There is mild heterogeneous nodular hypertrophy of the transitional ?? zone. ? Peripheral Zone: ?? No discrete focus of abnormal signal intensity is identified in the ?? peripheral zone to correspond to the patient's primary neoplasm. There ?? are no foci of restricted diffusion. ? Seminal Vesicles/Ejaculatory Ducts: ??Symmetric and normal in signal and ?? caliber. ? Pelvic Lymph Nodes: ??There are enlarged right external iliac lymph ?? nodes measuring up to 2.8 x 1.9 cm an additional left femoral nodes ?? measuring up to 2.2 x 1.6 cm. ? Marrow Signal: ??Normal marrow signal and enhancement without focal ?? lesion identified. ? MR/MR Prostate wo/w con ?? IMPRESSION: ? 1. No discrete focus of abnormal signal intensity is identified in the ?? prostate gland to correspond to the patient's primary neoplasm. ? 2. Left external iliac and femoral lymphadenopathy as described. ? Electronically signed by: ??Bladimir Gupta MD ??06/24/2024 11:37 AM EDT ? Dictated By: ?Bladimir Gupta MD ? Signed By: ?<Electronically signed by Bladimir Gupta MD in OV> ?06/24/24 1137 ? DD/ 0900 ? TD/TT: 06/24/24 0930 ? Global Sales Executive: ? Procedure Note Xenia Gilliam - 06/24/[address] [address] Magnetic Resonance Report Signed Patient: Jayda Alonso#: [id number] 33 : 5Acct:[id number] Age/Sex: 68 / MADM Date: 06/24/24 Loc: HO.MRI Attending Dr: Lm Rico MD Ordering Physician: Lm Rico MD Date of Service: 06/24/24 Procedure(s): MR Prostate wo/w con Accession Number(s): [id number] cc: Lm Rico MD; Balaji Sanderson MD EXAMINATION: MR PROSTATE WITHOUT THEN WITH IV CONTRAST HISTORY: ELEVATED PSA TECHNIQUE: 1.5T body coil survey of the pelvis was performed. Phase array coil imaging of the prostate was performed in multiplanar high resolution axial, coronal, sagittal fast spin echo T2 and axial T1 weighted imaging sequences. Axial diffusion imaging at intermediate and high field performed with ADC mapping. Next, mL Gadavist was given by intravenous infusion, and dynamic axial imaging performed. COMPARISON: There are no prior studies for comparison. CLINICAL DATA: Most recent PSA: 46.69 ng/mL on 05/05/2024 PSA Density: 1.80 ng/mL squared Prostate Biopsy: Previous biopsy on 10/11/2023 demonstrated an atypical small acinar proliferation. Fine-needle aspiration of a mediastinal lymph node on 04/28/2024 demonstrated metastatic adenocarcinoma, consistent with prostate primary. FINDINGS: Prostate size: 4.1 x 4.2 x 2.9 cm. Calculated prostate volume is 26.0 mL. Hemorrhage: None. Transitional Zone: There is mild heterogeneous nodular hypertrophy of the transitional zone. Peripheral Zone: No discrete focus of abnormal signal intensity is identified in the peripheral zone to correspond to the patient's primary neoplasm. There are no foci of restricted diffusion. Seminal Vesicles/Ejaculatory Ducts: Symmetric and normal in signal and caliber. Pelvic Lymph Nodes: There are enlarged right external iliac lymph nodes measuring up to 2.8 x 1.9 cm an additional left femoral nodes measuring up to 2.2 x 1.6 cm. Marrow Signal: Normal marrow signal and enhancement without focal lesion identified. MR/MR Prostate wo/w con IMPRESSION: 1. No discrete focus of abnormal signal intensity is identified in the prostate gland to correspond to the patient's primary neoplasm. 2. Left external iliac and femoral lymphadenopathy as described. Electronically signed by: Bladimir Gupta MD 06/24/2024 11:37 AM EDT RP Dictated By: Bladimir Gupta MD Signed By: <Electronically signed by Bladimir Gupta MD in OV> 06/24/24 1137 DD/ 0900 TD/TT: 06/24/24 0930 Global Sales Executive: [facility] External Provider IMG MRI PROCEDURES Final Result documented in this encounter Visit Diagnoses Not on filedocumented in this encounter Additional Health Concerns Assessment Noted Time PHQ-9 Depression Total Score: 0 05/16/19 11:46 AM EDT documented as of this encounter Care Teams Commissioner Of Relocation Services Relationship Specialty Start Date End Date Balaji Quinones MD 230 [place] [address] PCP - General Internal Medicine 11/25/13 Birgit rFanklin PharmD 230 [place] [address] Pharmacist Internal Medicine 06/06/24 documented as of this encounter
--- OUTSIDE RECORDS SUMMARY | 2024-06-26 14:42 | XMS_ITS | Encounter Summary ---
Author Organization [employer] Address [address] [facility] 7t [place] [address] Care Team Providers Care Media Center Director School Name Role Phone Balaji Quinones MD Primary Care Provide r Birgit Franklin PharmD Unavailable [phone] Reason for Visit * Reason Comments Med Refill Encounter Details Date Type Department Care Team ([facility] st Contact Info) Description 06/26/2024 Refill [facility] 230 [place] [address] Balaji Quinones MD 230 [place] [address] Tinea pedis of both feet Social History [...] PM EDT Office Visit [facility] [address] [place] [address] Balaji Quinones MD 230 [place] [address] 09/04/2024 11:00 AM EDT Medication Management [facility] [address] [place] [address] Birgit Franklin, Quentin [address] [place] [phone] documented as of this encounter Goals Goal [...] as of this encounter Care Teams Media Center Director School Relationship Specialty Start Date End Date Balaji Quinones MD 230 [place] [address] PCP - General Internal Medicine 11/25/13 Birgit Franklin PharmD 230 [place] [address] Pharmacist Internal Medicine 06/06/24 documented as of this encounter
--- OUTSIDE RECORDS SUMMARY | 2024-06-26 14:42 | XMS_ITS | Encounter Summary ---
Author Organization [employer] Address [address] [facility] 7t [place] [address] Care Team Providers Care Grad Intern Name Role Phone Balaji Quinones MD Primary Care Provide r Kristi Giles PharmD Unavailable [phone] Bigrit Franklin PharmD Unavailable [phone] Reason for Visit * Reason Comments Med Refill Encounter Details Date Type Department Care Team (Late st Contact Info) Description 04/19/2023 Refill [facility] 230 [place] [address] Balaji Quinones MD 230 [place] [address] Primary hypertension; Folliculitis Social History Tobacco Use [...] AM EDT documented as of this encounter Functional Status * Over the past 2 weeks, how often have you been bothered by any of the following problems? Question Answer Date of Assessment Author Patient Health Questionnaire-2 Score 0 08/2023 1:30 PM Faviola Srivastava [place] * If you checked off any problems on this questionnaire so far, Question Answer Date of Assessment Author How difficult have these problems made it for you to do your work, take care of things at home, or get along with other people? Not difficult at all 04/19/2023 1:30 PM Faviola Srivastava [place] * Over the past 2 weeks, how often have you been bothered by any of the following problems? Question Answer Date of Assessment Author Little interest or pleasure in doing things Not at all 04/19/2023 1:30 PM Faviola Srivastava [place] Feeling down, depressed, or hopeless Not at all 04/19/2023 1:30 PM Faviola Srivastava [place] Trouble falling or staying asleep, or sleeping too much Not at all 04/19/2023 1:30 PM Faviola Srivastava [place] Feeling tired or having ana le energy Several days 04/19/2023 1:30 PM Faviola Srivastava [place] Poor appetite or overeating Not at all 04/19/2023 1: 30 PM Faviola Srivastava [place] Feeling bad about yourself - or that you are a failure or have let yourself or your family down Not at all 04/19/2023 1:30 PM Faviola Nielsen [place] Trouble concentrating on thi ngs, such as reading the newspaper or watching television Not at all 04/19/2023 1:30 PM Faviola Srivastava MA Moving or speaking so slowly that other people could have noticed? Or the opposite - being so fidgety or restless that you have been moving around a lot more than usual. Not at all 04/19/2023 1:30 PM Faviola Srivastava MA Thoughts that you would be b leila off or hurting yourself in some way Not at all 04/19/2023 1:30 PM Faviola Srivastava MA Patient Health Questionnaire -9 Score 1 04/19/2023 1:30 PM Faviola Srivastava [place] documented as of this encounter Plan of Treatment Upcoming Encounters Date Type Department Care Team (Late st Contact Info) Description 07/22/2024 1:30 PM EDT Office Visit [facility] [address] [place] [address] Balaji Quinones MD [address] [place] [address] 09/04/2024 11:00 AM EDT Medication Management [facility] [address] [place] [address] Birgit Franklin PharmD [address] [place] [address] documented as of this encounter Goals Goal [...] documented as of this encounter Care Teams Grad Intern Relationship Specialty Start Date End Date Balaji Quinones MD 230 [place] [address] PCP - General Internal Medicine 11/25/13 Kristi Giles PharmD [address] [place] [address] Pharmacist Internal Medicine 01/30/22 06/05/24 Birgit Franklin PharmD 230 [place] [address] Pharmacist Internal Medicine 06/06/24 documented as of this encounter
--- OUTSIDE RECORDS SUMMARY | 2024-06-26 14:42 | XMS_ITS | Encounter Summary ---
Author Organization [employer] Address [address] [facility] 7t [place] [address] Care Team Providers Care Software Sales Manager Name Role Phone Balaji Quinones MD Primary Care Provide r Kristi Giles PharmD Unavailable [phone] Birgit Franklin PharmD Unavailable [phone] Reason for Visit * Reason Comments Med Refill Encounter Details Date Type Department Care Team (Late st Contact Info) Description 01/30/2023 Refill [facility] [address] [place] [phone] Balaji Quinones MD 230 [place], [place] [phone] Social History Tobacco Use Types Packs/Day Years [...] Office Visit [facility] [address] [place] [address] [phone] Balaji Quinones MD [address] [place] [address] 09/04/2024 11:00 AM EDT Medication Management [facility] [address] [place] [address] Birgit Franklin PharmD 230 [place] [address] documented as of this encounter Goals Goal [...] on filedocumented in this encounter Care Teams Software Sales Manager Relationship Specialty Start Date End Date Balaji Quinones MD [address] [place] [address] PCP - General Internal Medicine 11/25/13 Kristi iGles PharmD [address] [place] [address] Pharmacist Internal Medicine 01/30/22 06/05/24 Birgit Franklin PharmD [address] [place] [address] Pharmacist Internal Medicine 06/06/24 documented as of this encounter
--- OUTSIDE RECORDS SUMMARY | 2024-06-26 14:42 | XMS_ITS | Encounter Summary ---
Author Organization [employer] Address [address] [facility] 7t [place] [address] Care Team Providers Care Senior Government Program Analyst Name Role Phone Balaji Quinones MD Primary Care Provide r Kristi Giles PharmD Unavailable [phone] Birgit Franklin PharmD Unavailable [phone] Reason for Visit * Reason Comments Med Refill Encounter Details Date Type Department Care Team (Late st Contact Info) Description 12/30/2022 Refill [facility] [address] [place] [address] Balaji Quinones MD 230 [place], [place] [phone] Tinea pedis of both feet Social History [...] Description 07/22/2024 1:30 PM EDT Office Visit [facility] [address] [place] [address] [phone] Balaji Quinones MD [address] [place] [address] [phone] 09/04/2024 11:00 AM EDT Medication Management [facility] 230 [place] [address] Birgit Franklin PharmD [address] [place], [place] documented as of this encounter Goals Goal Patient Goal Type Associated Problems Recent Progress Patient-Stated? Author Blood Pressure < 140/90 Blood Pressure 138/82(2024 1:42 PM EDT) No Kristi Glies PharmD Note: Maintain BP less than 140/90 [...] feet documented in this encounter Care Teams Senior Government Program Analyst Relationship Specialty Start Date End Date Balaji Quinones MD [address] [place], [place] PCP - General Internal Medicine 11/25/13 Kristi Giles PharmD [address] [place], [place] Pharmacist Internal Medicine 01/30/22 06/05/24 Birgit Franklin PharmD [address] [place], [place] Pharmacist Internal Medicine 06/06/24 documented as of this encounter
--- OUTSIDE RECORDS SUMMARY | 2024-06-26 14:42 | XMS_ITS | Encounter Summary ---
Author Organization [employer] Address [address] [facility] 7t [place] [address] Care Team Providers Care Garment Liner Name Role Phone Balaji Quinones MD Primary Care Provide r Kristi Giles PharmD Unavailable [phone] Birgit Franklin PharmD Unavailable [phone] Encounter Details Date Type Department Care Team ([facility] Contact Info) Description 06/22/2022 Abstract [facility] [address] [place] [address] Balaji Quinones MD 230 [place], [place] [phone] Social History Tobacco Use Types Packs/Day Years [...] 07/22/2024 1:30 PM EDT Office Visit [facility] [address] [place] [address] Balaji Quinones MD 230 [place], [place] [phone] 09/04/2024 11:00 AM EDT Medication Management [facility] 230 [place] [address] Birgit Franklin PharmD 230 [place] [address] documented as of this encounter Goals Goal [...] on filedocumented in this encounter Care Teams Garment Liner Relationship Specialty Start Date End Date Balaji Quinones MD 230 [place] [address] PCP - General Internal Medicine 11/25/13 Kristi Giles PharmD 230 [place] [address] Pharmacist Internal Medicine 01/30/22 06/05/24 Birgit Franklin, PharmD 230 [place] [address] Pharmacist Internal Medicine 06/06/24 documented as of this encounter
--- OUTSIDE RECORDS SUMMARY | 2024-06-26 14:42 | XMS_ITS | Encounter Summary ---
Author Organization [employer] Address [address] [facility] 7t [place] [address] Care Team Providers Care Dairy Worker Name Role Phone Balaji Quinones MD Primary Care Provide r Kristi Giles PharmD Unavailable [phone] Birgit Franklin PharmD Unavailable [phone] Reason for Visit * Reason Comments Med Refill Encounter Details Date Type Department Care Team ([facility] st Contact Info) Description 06/25/2023 Refill [facility] 230 [place] [address] Balaji Quinones MD 230 [place] [address] Folliculitis Social History Tobacco Use Types Packs/Day [...] 07/22/2024 1:30 PM EDT Office Visit [facility] [address] [place] [address] Balaji Quinones MD [address] [place] [address] 09/04/2024 11:00 AM EDT Medication Management [facility] [address] [place] [phone] Birgit Franklin PharmD [address] [place] [address] documented as of this encounter Goals Goal [...] 138/82(2024 1:42 PM EDT) No Kristi Giles, PharmD Follow the DASH diet Diet No Kristi Giles PharmIvan Note: Look for foods that are low [...] documented as of this encounter Care Teams Dairy Worker Relationship Specialty Start Date End Date Balaji Quinones MD [address] [place] [address] PCP - General Internal Medicine 11/25/13 Kristi Giles, SarayD [address] [place] [address] Pharmacist Internal Medicine 01/30/22 06/05/24 Birgit Franklin PharmD [address] [place] [address] Pharmacist Internal Medicine 06/06/24 documented as of this encounter
--- OUTSIDE RECORDS SUMMARY | 2024-06-26 14:42 | XMS_ITS | Encounter Summary ---
Author Organization [employer] Address [address] [facility] 7t [place] [address] Care Team Providers Care National Sales Trainer Name Role Phone Balaji Quinones MD Primary Care Provide r Kristi Giles PharmD Unavailable [phone] Birgit Franklin PharmD Unavailable [phone] Encounter Details Date Type Department Care Team (Late st Contact Info) Description 09/08/2022 [facility] Health Information Management 230 [place] [address] Balaji Quinones MD 230 [place] [address] Social History Tobacco Use Types Packs/Day Years [...] EDT Office Visit [facility] [address] [place] [address] Balaji Quinones MD 230 [place], [place] [phone] 09/04/2024 11:00 AM EDT Medication Management [facility] 230 [place], [place] [phone] Birgit Franklin PharmD [address] [place] [address] documented as of this encounter Goals Goal [...] on filedocumented in this encounter Care Teams National Sales Trainer Relationship Specialty Start Date End Date Balaji Quinones MD [address] [place] [address] PCP - General Internal Medicine 11/25/13 Kristi Giles PharmD [address] [place] [address] Pharmacist Internal Medicine 01/30/22 06/05/24 Birgit Franklin PharmD [address] [place] [address] Pharmacist Internal Medicine 06/06/24 documented as of this encounter
--- OUTSIDE RECORDS SUMMARY | 2024-06-26 14:42 | XMS_ITS | Encounter Summary ---
Author Organization [employer] Address [address] [facility] 7t [place] [address] Care Team Providers Care Account Support Analyst Name Role Phone Balaji Quinones MD Primary Care Provide r Kristi Giles PharmD Unavailable [phone] Birgit Franklin PharmD Unavailable [phone] Reason for Visit * Reason Onset Date Comments Durable Medical Equipment 01/30/2023 Encounter Details Date Type Department Care Team (Late st Contact Info) Description 01/30/2023 Telephone [facility] 230 [place] [address] Balaji Quinones MD [address] [place] [address] Durable Medical Equipment Social History Tobacco Use [...] and taking falls. Please contact pt @ [phone] Syriac Speaker documented in this encounter Plan of Treatment Upcoming Encounters Date Type Department Care Team (Late st Contact Info) Description 07/22/2024 1:30 PM EDT Office Visit [facility] 230 [place] [address] Balaji Quinones MD [address] [place] [address] 09/04/2024 11:00 AM EDT Medication Management [facility] 230 [place] [address] Birgit Franklin PharmD [address] [place] [address] documented as of this encounter Goals Goal [...] on filedocumented in this encounter Care Teams Account Support Analyst Relationship Specialty Start Date End Date Balaji Quinones MD [address] [place] [address] PCP - General Internal Medicine 11/25/13 Kristi Giles PharmD [address] [place] [address] Pharmacist Internal Medicine 01/30/22 06/05/24 Birgit Franklin PharmD [address] [place] [address] Pharmacist Internal Medicine 06/06/24 documented as of this encounter
--- OUTSIDE RECORDS SUMMARY | 2024-06-26 14:42 | XMS_ITS | Encounter Summary ---
Author Organization [employer] Address [address] [facility] 7t [place] [address] Care Team Providers Care Photostat Operator Helper Name Role Phone Balaji uQinones MD Primary Care Provide r Kristi Giles PharmD Unavailable [phone] Birgit Franklin PharmD Unavailable [phone] Reason for Visit * Reason Comments Med Refill Encounter Details Date Type Department Care Team ([facility] st Contact Info) Description 12/24/2023 Refill [facility] 230 [place] [address] Balaji Quinones MD [address] [place] [address] Folliculitis Social History Tobacco Use Types Packs/Day [...] 07/22/2024 1:30 PM EDT Office Visit [facility] [address] [place] [address] Balaji Quinones MD [address] [place] [address] 09/04/2024 11:00 AM EDT Medication Management [facility] [address] [place] [address] Birgit Franklin PharmD [address] [place] [address] documented as of this encounter Goals Goal [...] documented as of this encounter Care Teams Photostat Operator Helper Relationship Specialty Start Date End Date Balaji Quinones MD [address] [place] [address] PCP - General Internal Medicine 11/25/13 Kristi Giles, Quentin [address] [place] [address] Pharmacist Internal Medicine 01/30/22 06/05/24 Birgit Franklin PharmD [address] [place] [address] Pharmacist Internal Medicine 06/06/24 documented as of this encounter
--- OUTSIDE RECORDS SUMMARY | 2024-06-26 14:42 | XMS_ITS | Encounter Summary ---
Author Organization [employer] Address [address] [facility] [address] [place] [address] Care Team Providers Care Retail Field Supervisor Name Role Phone Balaji Quinones MD Primary Care Provide r Birgit Franklin PharmD Unavailable [phone] Reason for Visit * Reason Onset Date Comments Med Refill 06/23/2024 Encounter Details Date Type Department Care Team ([facility] st Contact Info) Description 06/23/2024 Refill [facility] MED[facility]INE [address] [place] [address] Balaji Quinones MD [address] [place] [address] Social History Tobacco Use Types Packs/Day Years [...] encounter Miscellaneous Notes * Telephone Encounter - Indira Montgomery LPN - 06/23/2024 9:16 AM EDT Last seen 4.3.25 * Telephone Encounter - Roseann Millan - 06/23/2024 9:02 AM EDT TC from pt requesting medication refill. Medications needing refill : Aspirin Low Dose 81 MG EC tablet To be sent to: [facility] documented in this encounter Plan of Treatment Upcoming Encounters Date Type Department Care Team (Late st Contact Info) Description 07/22/2024 1:30 PM EDT Office Visit [facility] MEDICINE [address] [place] [phone] Balaji Quinones MD [address] [place], [place] [phone] 09/04/2024 11:00 AM EDT Medication Management [facility] MEDICINE [address] [place] [phone] Birgit Franklin, PharmD [address] [place] [address] documented as of this encounter Goals Goal [...] documented as of this encounter Care Teams Retail Field Supervisor Relationship Specialty Start Date End Date Balaji Quinones MD [address] [place] [address] PCP - General Internal Medicine 11/25/13 Birgit Franklin PharmD [address] [place] [address] Pharmacist Internal Medicine 06/06/24 documented as of this encounter
--- OUTSIDE RECORDS SUMMARY | 2024-06-26 14:42 | XMS_ITS | Encounter Summary ---
Author Organization [employer] Address [address] [facility] 7t [place] [address] Care Team Providers Care Label Printing Machinist Name Role Phone Balaji Quinones MD Primary Care Provide r Kristi Giles PharmD Unavailable [phone] Birgit Franklin PharmD Unavailable [phone] Reason for Visit * Reason Comments Med Refill Encounter Details Date Type Department Care Team (Late st Contact Info) Description 01/28/2023 Refill [facility] [address] [place] [address] Balaji Quinones MD [address] [place] [address] Social History Tobacco Use Types Packs/Day Years [...] 1:30 PM EDT Office Visit [facility] [place] [address] Bal[place] [address] 09/04/2024 11:00 AM EDT Medication Management [facility] [place] [address] Birgit Franklin [place] [address] documented as of this encounter Goals Goal [...] on filedocumented in this encounter Care Teams Label Printing Machinist Relationship Specialty Start Date End Date Bal[place] [address] PCP - General Internal Medicine 11/25/13 Kristi Giles PharmD [address] [place] [phone] Pharmacist Internal Medicine 01/30/22 06/05/24 Birgit Franklin PharmD [address] [place] [phone] Pharmacist Internal Medicine 06/06/24 documented as of this encounter
--- OUTSIDE RECORDS SUMMARY | 2024-06-26 14:42 | XMS_ITS | Encounter Summary ---
Author Organization [employer] Address [address] [facility] [address] [place] [address] Care Team Providers Care Financial Agent Name Role Phone Balaji Quinones MD Primary Care Provide r Kristi Giles PharmD Unavailable [phone] Birgit Franklin PharmD Unavailable [phone] Reason for Visit * Reason Comments Med Refill Encounter Details Date Type Department Care Team (Late Contact Info) Description 05/11/2022 Refill [facility] [address] [place] [address] Balaji Quinones MD [address] [place], [place] [phone] Swelling of right middle finger Social History [...] Description 07/22/2024 1:30 PM EDT Office Visit [facility] MED[facility]INE [address] [place] [address] Balaji Quinones MD [address] [facility] [address] 09/04/2024 11:00 AM EDT Medication Management [facility] [address] [facility] [place] [address] Birgit Franklin PharmD [address] [place], [place] documented as of this encounter Goals [...] finger documented in this encounter Care Teams Financial Agent Relationship Specialty Start Date End Date Balaji Quinones [place] [address] PCP - General Internal Medicine 11/25/13 Kristi Giles [place] [address] Pharmacist Internal Medicine 01/30/22 06/05/24 Birgit Franklin PharmD [address] [facility] [place] [address] Pharmacist Internal Medicine 06/06/24 documented as of this encounter
--- OUTSIDE RECORDS SUMMARY | 2024-06-26 14:42 | XMS_ITS | Encounter Summary ---
Author Organization [employer] Address [address] [facility] [address] [place] [address] Care Team Providers Care Planer Tailer Name Role Phone Balaji Quinones MD Primary Care Provide r Kristi Giles PharmD Unavailable [phone] Birgit Franklin PharmD Unavailable [phone] Reason for Visit * Reason Comments Med Refill Encounter Details Date Type Department Care Team ([facility] Contact Info) Description 04/17/2022 Refill [facility] MED[facility] [address] [place] [address] Brook Guerrero MD [address] [place] [address] [phone] Other chronic pain Social History Tobacco Use [...] Encounters Date Type Department Care Team ([facility] Contact Info) Description 07/22/2024 1:30 PM EDT Office Visit [facility] MEDICINE [address] [place] [phone] Balaji Quinones MD [address] [place] [address] 09/04/2024 11:00 AM EDT Medication Management [facility] [address] [place], [place] [phone] Birgit Franklin PharmD [address] [place], [place] documented as of this encounter Goals [...] pain documented in this encounter Care Teams Planer Tailer Relationship Specialty Start Date End Date Balaji Quinones MD [address] [place], [place] PCP - General Internal Medicine 11/25/13 Kristi Giles PharmD [address] [place] [address] Pharmacist Internal Medicine 01/30/22 06/05/24 Birgit Franklin PharmD [address] [place], [place] Pharmacist Internal Medicine 06/06/24 documented as of this encounter
--- OUTSIDE RECORDS SUMMARY | 2024-06-26 14:43 | XMS_ITS | Clinical Summary ---
Author Organization [employer] Address [address] [facility] [address] [place] [address] Care Team Providers Care Quarter Backer Name Role Phone Balaji Quinones MD Primary Care Provide r Birgit Franklin PharmD Unavailable [phone] Allergies No known active allergies Medications sertraline [...] AFFECTED AREA(S) TWICE DAILY 05/07/19 24 Active Diclofenac Sodium 1 % gelIndications:Sw elling of right middle finger APPLY 2 GRAMS TOPICALLY TO AFFECTED AREA(S) TWICE DAILY NEEDED FOR PAIN 100 g 1 11/12/19 24 Active glucose blood (FREESTYLE LITE) test stripIndications: Type 2 diabetes mellitus with hyperlipidemia ([facility]/HCC) ([facility]) TEST BLOOD SUGAR ONCE DAILY 100 each 12/28/19 24 Active TRUEplus Lancets 33G miscIndications:T ype 2 diabetes mellitus with hyperlipidemia ([facility]) ([facility]) TEST BLOOD SUGAR ONCE DAILY ICD10= 100 each 12/28/19 24 Active metFORMIN (Glucophage) 1000 MG tabletIndications :Type 2 diabetes mellitus without complication, unspecified whether intermediate manager insulin use ([facility]) TAKE 1 TABLET BY MOUTH TWICE [...] diabetes mellitus without complication, unspecified whether intermediate manager insulin use ([facility]) Take 1 tablet (45 mg) by [...] MORNING 90 tablet 1 03/25/19 25 Active Petrolatum 42 % ointment APPLY TO THE AFFECTED AREA(S) TOPICALLY TWICE DAILY 454 g 5 04/18/19 25 Active ketoconazole (NIZOral) 2 % creamIndications: Tinea pedis of both feet APPLY 1 GRAM TOPICALLY TO AFFECTED AREA(S) EVERY MORNING 30 g 1 05/02/19 25 Active Alcohol Swabs (Alcohol Prep) 70 % pads USE DIRECTED TO TEST BLOOD SUGAR 100 each 05/07/19 25 Active glipiZIDE XL (Glucotrol XL) 5 MG 24 hr tabletIndications :Type 2 diabetes mellitus without complication, unspecified whether fpc insulin use (CMS/HCC) TAKE 1 TABLET BY MOUTH EVERY DAY WITH BREAKFAST, DO NOT BREAK, CRUSH, DISSOLVE OR CHEW 90 tablet 1 05/15/19 25 Active FT Calcium 600 MG tablet Take 1 tablet by mouth 2 times daily. 05/15/19 25 Active finasteride (Proscar) 5 MG tablet Take 1 tablet by mouth Once per day. 04/04/19 25 Active triamcinolone (Kenalog) 0.025 % creamIndications: Dermatitis of lower extremity APPLY 1 GRAM TOPICALLY TO AFFECTED AREA(S) TWICE DAILY DIRECTED 60 g 1 06/17/19 25 Active aspirin (Aspirin Low Dose) 81 MG EC tablet Take 1 tablet (81 mg) by mouth in the morning. 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 His uzbyzwzj-ry-voj brought him to [facility]. Denied headache, chest pain, SOB, n/v/d, [...] follow up scheduled with Dr. Peres his executive sous chef Seen by Neurology who ordered Brain MRI that showed: No acute brain abnormality. No gross abnormal enhancing lesion. 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 Assessment & Plan (02/14/2024 4:19 PM EST): Pt seen at our [facility] 12/28/[address] Lloyd Puckett After pt was walking on sidewalk, felt sudden dizzy, unable to describe dizziness, and the next thing he remembers is being on the ground with facial injuries, abrasions on knees and left wrist. His prbcjgbl-ms-mvt brought him to [facility]. Denied headache, chest pain, SOB, n/v/d, or recent illness. States has many year h/o similar recurrent episodes of dizziness that he cannot describe, occasionally falls. ECG today shows sinus arrythmia, IVCD, PACs. Pt tells me he already has a follow up scheduled with Dr. Peres his executive sous chef Plan: Obtain ECHO, ECG, EEG. CT of [...] has appointment for an ultrasound coming up [facility] 05/11/2022 Assessment & Plan (05/15/2024 10:56 AM [...] of 3.9 cm. Pt was referred to [facility]. He was seen 11/06/2016 [...] of 3.9 cm. Pt was referred to [facility]. He was seen 11/06/2016 [...] of 3.9 cm. Pt was referred to [facility]. He was seen 11/06/2016 [...] of 3.9 cm. Pt was referred to [facility]. He was seen 11/06/2016 [...] of 3.9 cm. Pt was referred to [facility] surgeons. He was seen 11/06/2016 [...] Encounters Date Type Department Care Team Description 06/26/2024 Refill [facility] [address] [place] [address] Balaji Quinones MD Tinea pedis of both feet 06/24/2024 Orders Only [facility] External Provider, [facility] 06/23/2024 Refill [facility] [address] [place] [address] Balaji Quinones MD 06/13/2024 Refill [facility] [address] [place] [address] Balaji Quinones MD Dermatitis of lower extremity 06/09/2024 Telephone [facility] [address] [place] [address] Balaji Quinones MD Results 06/04/2024 Telephone [facility] [address] [place] [address] Kaci Meadows, OD 06/03/2024 10:00 AM EDT Clinical Support [facility] [address] [place] [address] Birgit Franklin PharmD Type 2 diabetes mellitus without complication, without long-term current use of insulin (CMS/HCC) (Primary Dx); Mixed hyperlipidemia; Primary hypertension 06/03/2024 Travel 05/27/2024 1:00 PM EDT Office Visit [facility] [address] [place] [address] Kaci Meadows, OD Diabetes type 2, no ocular involvement (CMS/HCC) (Primary Dx); Pseudoexfoliation of lens capsule; Combined forms of age-related cataract of both eyes; Dominant drusen, bilateral; Alternating exotropia; Presbyopia 05/27/2024 Travel 05/15/2024 11:00 AM EDT Office Visit [address] [address] Balaji Quinones MD Prostate cancer, primary, with metastasis from prostate to other site (CMS/HCC) (Primary Dx); Primary hypertension; Type 2 diabetes mellitus without complication, without long-term current use of insulin (CMS/HCC); Aneurysm of ascending aorta without rupture (CMS/HCC); Syncope, unspecified syncope type; Preventative health care 05/15/2024 Orders Only [facility] [address] [place] [phone] Balaji Quinones MD Primary hypertension (Primary Dx) 05/15/2024 Telephone [facility] [address] [place] [phone] Balaji Quinones MD 05/15/2024 Telephone [facility] [address] [place] [address] Balaji Quinones MD PET-CT 05/15/2024 Travel 05/13/2024 Refill [facility] [address] [place] [address] Balaji Quinones MD 05/11/2024 Refill [facility] [address] [place] [address] Balaji Quinones MD Type 2 diabetes mellitus without complication, unspecified whether fpc insulin use ([facility]) 05/06/2024 Patient Outreach [facility] [address] [place] [address] Balaji Quinones MD Pre-visit Planning (Pre-visit planning - LVM ) 05/05/2024 Orders Only GENERIC EXTERNAL DATA DEPARTMENT Provider, Generic External Data 05/04/2024 Telephone [facility] [address] [place] [address] Balaji Quinones MD Med Refill 05/01/2024 Orders Only [facility] [address] [place] [address] Balaji Quinones MD Hypokalemia (Primary Dx) 05/01/2024 Telephone [facility] [address] [place] [address] Balaji Quinones MD Chart Prep 05/01/2024 Telephone [facility] [address] [place] [address] Raquel Kirk, RN Appointment Request 04/30/2024 Refill [facility] [address] [place] [address] Balaji Quinones MD Tinea pedis of both feet 04/28/2024 Orders Only GENERIC EXTERNAL DATA DEPARTMENT Provider, Generic External Data 04/20/2024 Refill [facility] [address] [place] [address] Balaji Quinones MD 04/16/2024 Refill [facility] [address] [place], [place] [phone] Balaji Quinones MD Dermatitis of lower extremity 04/15/2024 Telephone [facility] [address] [facility], [place] [phone] Balaji Quinones MD Results 04/14/2024 Orders Only [facility] [address] [facility] [place] [phone] Balaji Quinones MD Mass in neck (Primary Dx) 04/03/2024 Telephone [facility] [address] [facility] [place] [address] Balaji Quinones MD Results from Last 3 Months Immunizations Immunization Administration Dates Next Due Influenza High-dose Quadriva [...] Description 07/22/2024 1:30 PM EDT Office Visit [facility] [address] [place], [place] [phone] Balaji Quinones MD [address] [place], [place] [phone] 09/04/2024 11:00 AM EDT Medication Management [facility] [address] [place], [place] [phone] Birgit Franklin, SarayD [address] [place], [place] [phone] Health Maintenance Due Date Last Done Comments CT Colonography 1955 FIT DNA/Cologuard 1955 FIT 1955 FOBT 1955 Sigmoidoscopy 1955 Diabetes: Foot Exam 1964 COVID-19 Vaccine ( season) 2024 11/22/2023, 03/25/2021, 09/21/2020, Additional history exists Diabetes: Urine Protein Screening 06/18/2024 06/19/2023, 01/12/2021, [...] Completed 07/05/2022 Zoster Vaccines Completed 07/17/2022, 05/15/2022 Influenza Vaccine Completed 11/22/2023, , 01/03/2022, Additional [...] patient's age to complete this topic Meningococcal B Vaccine Aged Out No l onger eligible based on patient's age to complete [...] WO CONTRAST Routine 06/24/2024 9:00 AM EDT POCT GLUCOSE Routine 05/15/2024 10:47 AM EDT Type 2 diabetes mellitus without complication, without long-term current use of insulin (CMS/HCC) PSA, TOTAL WITH REFLEX TO PSA, FREE [...] Recently Relevant to Health Maintenance Results * MR Prostate w and w/o Contrast (06/24/2024 9:00 AM EDT) Anatomical Region Laterality Modality Magnetic Resonan ce 06/24/2024 9:00 AM EDT Narrative 06/24/2024 11:40 AM EDT ? [facility] ?[address] ?[place] [address] ? Magnetic Resonance Report ? Signed ? Patient: Alonso,Paul ?MR#: [id number] ?? 33 ? : 1955 ?Acct:[id number] ? Age/Sex: 68 / M ?ADM Date: 06/24/24 ? Loc: HO.MRI ? Attending Dr: Lm Rico MD ? Ordering Physician: Lm Rico MD ?? Date of Service: 06/24/24 ?? Procedure(s): MR Prostate wo/w con ?? Accession Number(s): [id number] ? cc: Lm Rico MD; Balaji Sanderson [...] ??Bladimir Gupta MD ??06/24/2024 11:37 AM EDT ?? RP ? Dictated By: ?Bladimir Gupta MD ? Signed By: ?<Electronically signed by Bladimir Gupta MD in OV> ?06/24/24 1137 ? DD/ 0900 ? TD/TT: 06/24/24 0930 ? Instructor Adjunct Surgical Technician: ? Procedure Note Xenia Gilliam - 06/24/[address] [address] Magnetic Resonance Report Signed Patient: Jayda Alonso#: [id number] 33 : 5Acct:[id number] Age/Sex: 68 / MADM Date: 06/24/24 Loc: HO.MRI Attending Dr: Lm Rico MD Ordering Physician: Lm Rico MD Date of Service: 06/24/24 Procedure(s): MR Prostate wo/w con Accession Number(s): [id number] cc: Lm Rico MD; Balaji Sanderson MD [...] Gupta MD in OV> 06/24/24 1137 DD/ 09 TD/TT: 06/24/24 0930 Instructor Adjunct Surgical Technician: [facility] External Provider IMG MRI PROCEDURES Final Result * POCT Glucose (05/15/2024 10:47 AM EDT) [...] (Free>4and<10) 49.69(H ) 0.00 - 4.00 ng/mL [facility] Comment:A Free PSA was not p [...] 9:25 AM EDT 05/05/2024 11:36 AM EDT Generic External Data Provider LAB BLOOD ORDERAB LES Final Result [facility] [address] [place] [phone] * (ABNORMAL) Basic Metabolic Panel (05/05/2024 9:25 AM EDT) Only the most recent of2 resultswithin the time period is included. Sodium 135 135 - 145 mmol/L [facility] Potassium 4.4 3.3 - 5.1 mmol/L [facility] Chloride 101 96 - 108 mmol/L [facility] Carbon Dioxide 30(H) 22 - 29 mmol/L [facility] Anion Gap 8(L) 12 - 20 [facility] Urea Nitrogen (BUN) 4(L) 9 - 16 mg/dL [facility] Creatinine, Serum 0.75 0.5 - 1.4 mg/dL [facility] Estimated Glomerular Filt Rate >60 [facility] Comment:Chronic Kidney Disea se: Estimated GFR < 60 mL/min/1.45v6Isvfqk Kidney Disease: Estimated GFR < 15 mL/min/1.73m2 Glucose 176(H) 60 - 115 mg/dL [facility] Calcium 8.6 8.4 - 10.2 mg/dL [facility] Blood Venous blood specimen / Unknown 05/05/2024 9:25 AM EDT 05/05/2024 11:36 AM EDT us Balaji Donnelly MD LAB BLOOD ORDERABLES Final Result [facility] [address] [place] [phone] * PSA Stain (04/28/2024 2:20 PM EDT) 04/28/2024 2:20 PM EDT 04/28/2024 2:52 PM EDT Narrative [facility] - 05/08/2024 1:35 PM EDT ----- ------- Name: Paul Alonso ? Age/Sex: 68/M ? : 1955 Unit#: [id number] ?? Attend Dr: Ki Castaneda MD ?Re04/28/24 ?Status: DEP SDC ? Location: HO.SSS ?Disch: ? ----- ------- SPEC : [id number] ? RECD: 04/28/24-1451 ? STATUS: ??SOUT ? REQ NUM: [id number] ? REX: 04/28/24-1420 ? SUBM DR: Ki Castaneda MD ? ENTERED: ??04/28/24 ?SP TYPE: Cytology ? OTHR DR: Balaji Sanderson MD ?? ORDERED: ??PSA Stain, Fine Ndl Asp, Cytokeratin, S 100, Synaptophysin, Cyto- enhanced, ?Chromogranin, IHC, Add. immunos/14, Multiplex IHC, CD68, CDX-2, MOC-31, p40, ?PAX-8, PIN4, TTF-1 COMMENTS: Cell Block B sent to [facility] for multiple IHC's on 05/01/24. ? Diagnosis [...] ? Age/Sex: 68/M ? : 1955 Unit#: [id number] ?? Attend Dr: Ki Castaneda MD ?Re04/28/24 ?Status: DEP SDC ? Location: HO.SSS ?Disch: ? ----- ------- SPEC : [id number] ? RECD: 04/28/24 ? STATUS: ??SOUT ? REQ NUM: [id number] ? REX: 04/28/24-1419 ? SUBM DR: Ki Castaneda MD ? ENTERED: ??04/28/24 ?SP TYPE: Cytology ? OTHR DR: Balaji Sanderson MD ?? ORDERED: ??PSA Stain, Fine Ndl Asp, Cytokeratin, S 100, Synaptophysin, Cyto- enhanced, ?Chromogranin, IHC, Add. /14, Multiplex IHC, CD68, CDX-2, MOC-31, p40, ?PAX-8, PIN4, TTF-1 COMMENTS: Cell Block B sent to [facility] for multiple IHC's on 05/01/24. ? Gross Description ?(Continued) the intraoperative diagnosis as follows: 1st pass: ??Few bronchial cells present. 2nd pass: ??Adequate; lesional cells present. [place], 04/28/2024 ([facility]) This case was reviewed intradepartmentally. Special stains ordered and performed: ??Immunostains for synaptophysin, chromogranin, Ki-67, TTF-1, MOC-31, CD20, CD56, CK20, CK7, PAX8, CD68, jolly-cytokeratin, p40, S100, PSA, CDX2, CD117 on cell block B; special stain PAS on cell block. Technical services for CD20, CD56, chromogranin, MOC31, CK20, CK7, CK20, synaptophysin and TTF-1 immunohistochemistry studies performed at [facility] Jennifer Arreguin, [place]; [facility] #[id number] Copies To: ?? aBlaji Sanderson MD ?? [facility] ?? [address] ?? [place] [address] ?? [phone] ?? Ki Castaneda MD ?? [facility] ?? [address] ?? [place] [address] ?? [phone] ----- ------- Signed (signature on file) Malini Quach MD 05/08/24 1335 ? ----- ------- ? END OF REPORT ? Generic External Data Provider LAB PATHOLOGY ORD ERABLES Final Result Performing Organization Address [facility] de Phone Number [facility] [address] [place] [phone] * Gram stain (04/28/2024 2:20 PM EDT) 04/28/2024 2:20 PM EDT 04/29/2024 8:42 AM EDT Comment:Bronc Wash Narrative [facility] - 04/29/2024 8:50 AM EDT Test not performed Routine Culture Test not performed Unable to perform culture due to laboratory error. Sample already processed by the pathology department. Specimen Source: Bronchial Washings Generic External Data Provider LAB MICROBIOLOGY - GENERAL ORDERABLES Final Result Performing Organization Address [facility] de Phone Number [facility] [address] [place] [phone] * (ABNORMAL) Glucose, Whole Blood (04/28/2024 10:28 AM EDT) Glucose, Whole Blood 166(H) 60 - 115 mg/dL [facility] Comment:METER #: [id number] 04/28/2024 10:2 8 AM EDT 04/28/2024 10:33 AM EDT Generic External Data Provider LAB BLOOD ORDERAB LES Final Result Performing Organization Address [facility] de Phone Number [facility] [address] [place] [phone] * Mr Brain w/ and w/o Contrast (04/23/2024 10:50 AM EDT) Anatomical Region Laterality Modality Brain Magnetic Resonan ce 04/23/2024 10:5 0 AM EDT Narrative 04/23/2024 12:50 PM EDT ? [facility] ?[address] ?[place] [address] ? Magnetic Resonance Report ? Signed ? Patient: Alonso,Paul ?MR#: [id number] ?? 33 ? : 1955 ?Acct:[id number] ? Age/Sex: 68 / M ?ADM Date: 04/23/24 ? Loc: HO.MRI ? Attending Dr: Jessica Palacios MD ? Ordering Physician: Jessica Palacios MD ?? Date of Service: 04/23/24 ?? Procedure(s): MR head/brain wo/w con ?? Accession Number(s): [id number] ? cc: Balaji Sanderson MD; Jessica Palacios [...] DD/ 1050 ? TD/TT: 04/23/24 1115 ? Instructor Adjunct Surgical Technician: ? Procedure Note Donotuseinterpreter, Image - 04/23/2024 [place] [address] Magnetic Resonance Report Signed Patient: Jayda Alonso#: [id number] 33 : 5Acct:[id number] Age/Sex: 68 / MADM Date: 04/23/24 Loc: HO.MRI Attending Dr: Jessica Palacios MD Ordering Physician: Jessica Palacios MD Date of Service: 04/23/24 Procedure(s): MR head/brain wo/w con Accession Number(s): [id number] cc: Balaji Sanderson MD; Jessica Palacios MD [...] 04/23/24 1247 DD/ 1050 TD/TT: 04/23/24 1115 Instructor Adjunct Surgical Technician: [facility] External Provider IMG MRI PROCEDURES Final Result * Referral to Neurology (04/10/2024) Balaji Donnelly MD OUTPATIENT REFERRAL O RDERABLES Final Result * CTA Chest w/ and w/o Contrast (04/03/2024 12:33 PM EST) Anatomical Region Laterality Modality Body, Chest Computed Tomogra phy 04/03/2024 12:3 3 PM EST Narrative 04/03/2024 12:34 PM EST ? [facility] ?[address] ?[place] [address] ? CT Scan Report ? Signed with Addenda ? Patient: Alonso,Paul ?MR#: [id number] ?? 33 ? : 1955 ?Acct:[id number] ? Age/Sex: 68 / M ?ADM Date: 02/20/25 ? Loc: HO.CT ? Attending Dr: Balaji Sanderson MD ? Ordering Physician: Balaji Sanderson MD ?? Date of Service: 04/03/24 ?? Procedure(s): CT angio chest aorta ?? Accession Number(s): [id number] ? cc: Balaji Sanderson MD ? Report Number: ?? [id number]: Total DLP = ??212.27 mGy-cm ?ADDENDUM ?? [...] DD/ 1233 ? TD/TT: 04/03/24 1233 ? Instructor Adjunct Surgical Technician: ? Procedure Note Donotuseinterpreter, Image - 04/04/[address] [address] [address] Scan Report Signed with Addenda Patient: Jayda Alonso#: [id number] 33 : 5Acct:[id number] Age/Sex: 68 / MADM Date: 04/03/24 Loc: HO.CT Attending Dr: Balaji Sanderson MD Ordering Physician: Balaji Sanderson MD Date of Service: 04/03/24 Procedure(s): CT angio chest aorta Accession Number(s): [id number] cc: Balaji Sanderson MD Report Number: [id number]: Total DLP = 212.27 mGy-cm ADDENDUM This [...] 04/03/24 1234 DD/ 1233 TD/TT: 04/03/24 1233 Instructor Adjunct Surgical Technician: Balaji Donnelly MD IMG CT PROCEDURES Jaspal tennille Result - Final * CT Head w/o Contrast (04/03/2024 10:11 AM EST) Anatomical Region Laterality Modality Head, Neck Computed Tomogra phy 04/03/2024 10:1 1 AM EST Narrative 04/03/2024 10:12 AM EST ? [facility] ?[address] ?[place] [address] ? CT Scan Report ? Signed ? Patient: Alonso,Paul ?MR#: [id number] ?? 33 ? : 1955 ?Acct:[id number] ? Age/Sex: 68 / M ?ADM Date: 02/20/25 ? Loc: HO.CT ? Attending Dr: Balaji Sanderson MD ? Ordering Physician: Balaji Sanderson MD ?? Date of Service: 04/03/24 ?? Procedure(s): CT head/brain wo IV con ?? Accession Number(s): [id number] ? cc: Balaji Sanderson MD ? Report Number: ?? [id number]: Total DLP = ??672.66 mGy-cm ? CLINICAL HISTORY: syncope ? CT head without contrast ? Comparison: None ? Findings: ?? No intra-axial mass, midline shift, hydrocephalus, or acute hemorrhage. ?? Imyv-yo-asywsyvz age-related cerebral hemispheric white matter changes. ?? [...] DD/ 1011 ? TD/TT: 04/03/24 1011 ? Instructor Adjunct Surgical Technician: ? Procedure Note Tawana, Image - 04/03/[address] [place] [address] [address] Scan Report Signed Patient: Jayda Alonso#: [id number] 33 : 5Acct:[id number] Age/Sex: 68 / MADM Date: 04/03/24 Loc: HO.CT Attending Dr: Balaji Sanderson MD Ordering Physician: Balaji Sanderson MD Date of Service: 04/03/24 Procedure(s): CT head/brain wo IV con Accession Number(s): [id number] cc: Balaji Sanderson MD Report Number: [id number]: Total DLP = 672.66 mGy-cm CLINICAL HISTORY: syncope CT head without contrast Comparison: None Findings: No intra-axial mass, midline shift, hydrocephalus, or acute hemorrhage. Ihqa-iz-eubfntqf age-related cerebral hemispheric white matter changes. Small [...] 04/03/24 1012 DD/ 1011 TD/TT: 04/03/24 1011 Instructor Adjunct Surgical Technician: Balaji Donnelly MD IMG CT PROCEDURES Fin [...] 1:23 PM EDT) Triglycerides 158(H) <150 mg/dL [facility] Comment:Desirable Triglyceri de: less than 150 mg/dLBorderline High Triglyceride 150-199 mg/dLHigh Triglyceride: 200-499 mg/dLVery High Triglyceride: greater than or equal to 5OO mg/dL Cholesterol 127 <200 mg/dL [facility] Comment:Desirable Cholestero l: less than 200 mg/dLBorderline High Cholesterol: 200-239 mg/dLHigh Cholesterol: greater than 239 mg/dL LDL Cholesterol Calculated 66 <100 mg/dL [facility] Comment:Desirable LDL: less than 100 mg/dLNear Optimal/Above Optimal LDL: 110- 129 mg/dLBorderline High LDL: 130-159 mg/dLHigh LDL: 160-189 mg/dLVery High LDL: greater than or equal to 190 mg/dL HDL Cholesterol 30(L) >40 mg/dL [facility] Comment:Desirable HDL: great er than 40 mg/dL Note: This HDL assay may give artificially low results in patients with liver disease. Blood 06/19/2023 1:23 PM EDT 06/19/2023 4:12 PM EDT Balaji Donnelly MD LAB BLOOD ORDERABLES Final Result Performing Organization Address [facility]/ZIP Co de Phone Number [facility] [address] [place] [phone] * Albumin, Random Urine W/Creatinine (06/19/2023 12:00 AM EDT) Creatinine, Urine 137.18 mg/dL [facility] Microalbumin Urine 21.0 mg/L [facility] Microalbum Creatinine Ratio Ur 15.3 <30 ug/mg cr [facility] Comment:Albumin/Creatinine R atio Reference Ranges: Normal: < 30 ug/mg creatinine Microalbuminuria: 30 - 300 ug/mg creatinineClinical Albuminuria: > 300 ug/mg creatinine Urine (Urine, Random) 06/19/2023 06/19/2023 Balaji Donnelly MD LAB URINE ORDERABLES Final Result Performing Organization Address [facility]/ZIP Co de Phone Number [facility] [address] [place] [address] [phone] * Hepatitis C Antibody with Reflex to HCV, RNA, Quantitative, Real-Time PCR (07/05/2022 8:13 AM EDT) Hepatitis C Antibody NON-REACT MADDY NON-REACT MADDY [facility] Index 0.04 <1.00 [facility] Comment: HCV antibody was non-reactive. There is no laboratory evidence of HCV infection. In most cases, no further action is required. However, if recent HCV exposure is suspected, a test for HCV RNA (test code 15758) is suggested. For additional information please refer to http://Inofile.AviantLogic/faq/CYM21o8 (This link is being provided for informational/ educational purposes only.) Blood Venous blood specimen / Unknown 07/05/2022 8:13 AM EDT 07/05/2022 8:14 AM EDT Narrative [facility] - 07/06/2022 11:54 AM EDT FASTING:YES FASTING: YES Balaji Donnelly MD LAB BLOOD ORDERABLES Final Result [facility] [address], [place] [address] [employer] [place] [employer] [address] [place] [address] * Colonoscopy (07/10/2017) Colonoscopy Normal Normal 07/10/2017 Shikha Morel - 07/10/2017 3:47 PM EDT Recommended 10 year follow up ( [facility] ) Historical Provider HEALTH MAINTENANCE Final Result from Last 3 Months or Most Recently Relevant to Health Maintenance Insurance [employer] STANDARD MEDICARE Care Teams Quarter Backer Relationship Specialty Start Date End Date Balaji Quinones MD [address] [place] [address] PCP - General Internal Medicine 11/25/13 Birgit Franklin, Quentin [address] [place] [address] Pharmacist Internal Medicine 06/06/24
--- NOTE | 2024-06-26 15:07 | AM.OFFVISNUR ---
Intake Visit Reasons: 2 week/[facility]/MyRisk Allergies No Known Allergies Allergy (Verified 06/11/24 15:20) Office Meds Eligard (6 month) 45 mg (6 month) subcutaneous syringe Performing Provider: Lm Rico MD Performing Location: [facility] Administered by: Mark Albright LPN on 06/26/24 15:07 Dose Route Admin Location Dispensed Lot Number Expiration Date [facility] [employer] 45 mg subcut right arm 45 mg [id number] 10/13/25 78633-672-04 Familiar. Assessment & Plan Assessment & Plan Orders: Orders AMB Leuprolide Injection - Practice Supplied Today C61 - Malignant neoplasm of prostate, C77.1 - Secondary and unspecified malignant neoplasm of intrathoracic lymph nodes Medications: New Eligard (6 month) (leuprolide acetate (6 month)) 45 mg subcut ONCE 1 ea 0RF NS C61 - Malignant neoplasm of prostate, C77.1 - Secondary and unspecified malignant neoplasm of intrathoracic lymph nodes Coding
== END 2024-06-26 15:06 | disposition home or self-care (01) ==
PROVIDERS: PCP Internal Medicine; Visit Provider Urology
DX: C61 Malignant neoplasm of prostate (principal); C77.1 Secondary and unspecified malignant neoplasm of intrathoracic lymph nodes

== ENCOUNTER → 2024-06-26 13:59 | Outpatient (BNVA) | payer MEDICARE, MEDICAID, SELFPAY | PROVIDERS: PCP Internal Medicine; Visit Provider Urology | DX: C61 Malignant neoplasm of prostate (principal); C77.1 Secondary and unspecified malignant neoplasm of intrathoracic lymph nodes | CPT/HCPCS: 96402; J9217 ==

== ENCOUNTER 2024-06-27 08:42 | Outpatient (REF) | payer MEDICARE, MEDICAID, SELFPAY ==
--- OUTSIDE RECORDS SUMMARY | 2024-06-27 08:56 | XMS_ITS | Encounter Summary ---
Author Organization [employer] Address 75 [facility] 7t [place] [address] Care Team Providers Care Elevator Mechanic Name Role Phone Balaji Quinones MD Primary Care Provide r Kristi Giles PharmD Unavailable [phone] Birgit Franklin PharmD Unavailable [phone] Encounter Details Date Type Department Care Team (Late st Contact Info) Description 01/28/[address] [facility] [address] [place] [address] Kristi Giles, PharmD [address] [place] [address] Social History Tobacco Use Types Packs/Day Years [...] 1:30 PM EDT Office Visit [facility] [address] [place] [address] [phone] Balaji Quinones MD [address] [place] [address] 09/04/2024 11:00 AM EDT Medication Management [facility] [address] [place] [address] Birgit Franklin PharmD [address] [place] [address] documented as of this encounter Goals Goal [...] on filedocumented in this encounter Care Teams Elevator Mechanic Relationship Specialty Start Date End Date Balaji Quinones MD [address] [place] [address] PCP - General Internal Medicine 11/25/13 Kristi Giles PharmD [address] [place] [address] Pharmacist Internal Medicine 01/30/22 06/05/24 Birgit Franklin PharmD [address] [place] [address] Pharmacist Internal Medicine 06/06/24 documented as of this encounter
--- OUTSIDE RECORDS SUMMARY | 2024-06-27 08:56 | XMS_ITS | Encounter Summary ---
Author Organization [employer] Address 75 [facility] 7t [place] [address] Care Team Providers Care Change Lead Name Role Phone Balaji Quinones MD Primary Care Provide r Kristi Giles PharmD Unavailable [phone] Birgit Franklin PharmD Unavailable [phone] Encounter Details Date Type Department Care Team ([facility] Contact Info) Description 06/22/2022 Abstract [facility] [address] [place] [address] Balaji Quinones MD [address] [place], [place] [phone] Social History Tobacco Use Types Packs/Day Years [...] 07/22/2024 1:30 PM EDT Office Visit [facility] [address] [place] [address] Balaji Quinones MD [address] [place], [place] [phone] 09/04/2024 11:00 AM EDT Medication Management [facility] [address] [place] [address] Birgit Franklin PharmD [address] [place] [address] documented as of this encounter Goals Goal [...] on filedocumented in this encounter Care Teams Change Lead Relationship Specialty Start Date End Date Balaji Quinones MD [address] [place] [address] PCP - General Internal Medicine 11/25/13 Kristi Giles PharmD [address] [place] [address] Pharmacist Internal Medicine 01/30/22 06/05/24 Birgit Franklin, PharmD [address] [place] [address] Pharmacist Internal Medicine 06/06/24 documented as of this encounter
--- OUTSIDE RECORDS SUMMARY | 2024-06-27 08:56 | XMS_ITS | Encounter Summary ---
Author Organization [employer] Address 75 [facility] 7t [place] [address] Care Team Providers Care Vc++ Developer Name Role Phone Balaji Quinones MD Primary Care Provide r Kristi Giles PharmD Unavailable [phone] Birgit Franklin PharmD Unavailable [phone] Reason for Visit * Reason Comments Med Refill Encounter Details Date Type Department Care Team (Late st Contact Info) Description 08/01/2023 Refill [facility] 230 [place] [address] Vani Stallworth MD [address] [place] [address] Folliculitis Social History Tobacco Use Types Packs/Day [...] Description 07/22/2024 1:30 PM EDT Office Visit [facility] [address] [place] [address] Balaji Quinones MD [address] [place] [address] 09/04/2024 11:00 AM EDT Medication Management [facility] [address] [place] [address] Birgit Franklin PharmD [address] [place] [address] documented as of this encounter Goals Goal [...] documented as of this encounter Care Teams Vc++ Developer Relationship Specialty Start Date End Date Balaji Qiunones MD [address] [place] [address] PCP - General Internal Medicine 11/25/13 Kristi Giles, Quentin [address] [place] [address] Pharmacist Internal Medicine 01/30/22 06/05/24 Birgit Franklin PharmD [address] [place] [address] Pharmacist Internal Medicine 06/06/24 documented as of this encounter
--- OUTSIDE RECORDS SUMMARY | 2024-06-27 08:56 | XMS_ITS | Encounter Summary ---
Author Organization [employer] Address 75 [facility] 7t [place] [address] Care Team Providers Care English Faculty Member Name Role Phone Balaji Quinones MD Primary Care Provide r Birgit Franklin PharmD Unavailable [phone] Reason for Visit * Reason Onset Date Comments Med Refill 06/23/2024 Encounter Details Date Type Department Care Team ([facility] st Contact Info) Description 06/23/2024 Refill [facility] 230 [place] [address] Balaji Quinones MD [address] [place] [address] Social History Tobacco Use Types Packs/Day Years [...] MG EC tablet To be sent to: [facility] documented in this encounter Plan of Treatment Upcoming Encounters Date Type Department Care Team (Late st Contact Info) Description 07/22/2024 1:30 PM EDT Office Visit [facility] [address] [place] [address] Balaji Quinones MD [address] [place], [place] [phone] 09/04/2024 11:00 AM EDT Medication Management [facility] [address] [place] [address] Birgit Franklin, PharmD [address] [place] [address] documented as of this encounter Goals Goal [...] documented as of this encounter Care Teams English Faculty Member Relationship Specialty Start Date End Date Balaji Quinones MD [address] [place] [address] PCP - General Internal Medicine 11/25/13 Birgit Franklin PharmD [address] [place] [address] Pharmacist Internal Medicine 06/06/24 documented as of this encounter
--- OUTSIDE RECORDS SUMMARY | 2024-06-27 08:56 | XMS_ITS | Encounter Summary ---
Author Organization [employer] Address 75 [facility] 7t [place] [address] Care Team Providers Care Footwear Machinery Instructor Name Role Phone Balaji Quinones MD Primary Care Provide r Kristi Giles PharmD Unavailable +[phone] Birgit Franklin PharmD Unavailable [phone] Encounter Details Date Type Department Care Team (Late st Contact Info) Description 09/08/2022 [facility] Health Information Management 230 [place] [address] Balaji Quinones MD [address] [place] [address] Social History Tobacco Use Types Packs/Day Years [...] Description 07/22/2024 1:30 PM EDT Office Visit [facility] [address] [place] [address] Balaji Quinones MD 230 [place], [place] [phone] 09/04/2024 11:00 AM EDT Medication Management [facility] 230 [place], [place] [phone] Birgit Franklin PharmD [address] [place] [address] documented as of this encounter Goals Goal [...] on filedocumented in this encounter Care Teams Footwear Machinery Instructor Relationship Specialty Start Date End Date Balaji Quinones MD [address] [place] [address] PCP - General Internal Medicine 11/25/13 Kristi Giles PharmD [address] [place] [address] Pharmacist Internal Medicine 01/30/22 06/05/24 Birgit Franklin PharmD [address] [place] [address] Pharmacist Internal Medicine 06/06/24 documented as of this encounter
--- OUTSIDE RECORDS SUMMARY | 2024-06-27 08:56 | XMS_ITS | Encounter Summary ---
Author Organization [employer] Address 75 [facility] 7t [place] [address] Care Team Providers Care School Psychology Specialist Name Role Phone Balaji Quinones MD Primary Care Provide r Kristi Giles PharmD Unavailable [phone] Birgit Franklin PharmD Unavailable [phone] Reason for Visit * Reason Comments Med Refill Encounter Details Date Type Department Care Team (Late st Contact Info) Description 04/19/2023 Refill [facility] 230 [place] [address] Balaji Quinones MD [address] [place] [address] Primary hypertension; Folliculitis Social History Tobacco Use [...] Srivastava [place] Thoughts that you would be better off or hurting yourself in some way Not at all 04/19/2023 1:30 PM Faviola Srivastava [place] Patient Health Questionnaire -9 Score 1 04/19/2023 1:30 PM Faviola Srivastava [place] documented as of this encounter Plan of Treatment Upcoming Encounters Date Type Department Care Team (Late st Contact Info) Description 07/22/2024 1:30 PM EDT Office Visit [facility] [address] [place] [address] Balaji Quinones MD [address] [place] [address] 09/04/2024 11:00 AM EDT Medication Management [facility] [address] [place] [address] Birgit Franklin PharmD [address] [place] [address] documented as of this encounter Goals Goal [...] documented as of this encounter Care Teams School Psychology Specialist Relationship Specialty Start Date End Date Balaji Quinones MD [address] [place] [address] PCP - General Internal Medicine 11/25/13 Kristi Giles PharmD [address] [place] [address] Pharmacist Internal Medicine 01/30/22 06/05/24 Birgit Franklin PharmD [address] [place] [address] Pharmacist Internal Medicine 06/06/24 documented as of this encounter
--- OUTSIDE RECORDS SUMMARY | 2024-06-27 08:56 | XMS_ITS | Encounter Summary ---
Author Organization [employer] Address 75 [facility] 7t [place] [address] Care Team Providers Care Tax Compliance Officer Name Role Phone Balaji Quinones MD Primary Care Provide r Kristi Giles PharmD Unavailable [phone] Birgit Franklin PharmD Unavailable [phone] Reason for Visit * Reason Comments Med Refill Encounter Details Date Type Department Care Team (Late st Contact Info) Description 06/11/2023 Refill [facility] [address] [place], [place] [phone] Balaji Quinones MD [address] [place] [address] Swelling of right middle finger Social History [...] Description 07/22/2024 1:30 PM EDT Office Visit [facility] [address] [place] [address] Balaji Quinones MD [address] [place] [address] 09/04/2024 11:00 AM EDT Medication Management [facility] [address] [place] [address] Birgit Franklin PharmD [address] [place] [address] documented as of this encounter Goals Goal [...] as of this encounter Care Teams Tax Compliance Officer Relationship Specialty Start Date End Date Balaji Quinones MD [address] [place] [address] PCP - General Internal Medicine 11/25/13 Kristi Giles, Quentin [address] [place] [address] Pharmacist Internal Medicine 01/30/22 06/05/24 Birgit Franklin PharmD [address] [place] [address] Pharmacist Internal Medicine 06/06/24 documented as of this encounter
--- OUTSIDE RECORDS SUMMARY | 2024-06-27 08:56 | XMS_ITS | Encounter Summary ---
Author Organization [employer] Address 75 [facility] 7t [place] [address] Care Team Providers Care Wire Annealer Name Role Phone Balaji Quinones MD Primary Care Provide r Birgit Franklin PharmD Unavailable [phone] Reason for Visit * Reason Comments Med Refill Encounter Details Date Type Department Care Team ([facility] st Contact Info) Description 06/26/2024 Refill [facility] 230 [place] [address] Balaji Quinones MD [address] [place] [address] Tinea pedis of both feet Social History [...] Description 07/22/2024 1:30 PM EDT Office Visit [facility] [address] [place] [address] Balaji Quinones MD [address] [place] [address] 09/04/2024 11:00 AM EDT Medication Management [facility] [address] [place] [address] Birgit Franklin, Quentin [address] [place] [address] documented as of this encounter Goals Goal [...] documented as of this encounter Care Teams Wire Annealer Relationship Specialty Start Date End Date Balaji Quinones MD [address] [place] [address] PCP - General Internal Medicine 11/25/13 Birgit Franklin PharmD [address] [place] [address] Pharmacist Internal Medicine 06/06/24 documented as of this encounter
--- OUTSIDE RECORDS SUMMARY | 2024-06-27 08:56 | XMS_ITS | Encounter Summary ---
Author Organization [employer] Address 75 [facility] 7t [place] [address] Care Team Providers Care Automatic Coil Machine Operator Name Role Phone Balaji Quinones MD Primary Care Provide r Kristi Giles PharmD Unavailable [phone] Birgit Franklin PharmD Unavailable [phone] Reason for Visit * Reason Comments Med Refill Encounter Details Date Type Department Care Team ([facility] st Contact Info) Description 06/25/2023 Refill [facility] [address] [place] [address] Balaji Quinones MD [address] [place] [address] Folliculitis Social History Tobacco Use Types Packs/Day [...] Description 07/22/2024 1:30 PM EDT Office Visit [facility] [address] [place] [address] Balaji Quinones MD [address] [place] [address] 09/04/2024 11:00 AM EDT Medication Management [facility] [address] [place] [address] Birgit Franklin PharmD [address] [place] [address] documented as of this encounter Goals Goal [...] documented as of this encounter Care Teams Automatic Coil Machine Operator Relationship Specialty Start Date End Date Balaji Quinones MD [address] [place] [address] PCP - General Internal Medicine 11/25/13 Kristi Giles, SarayD [address] [place] [address] Pharmacist Internal Medicine 01/30/22 06/05/24 Birgit Franklin PharmD [address] [place] [address] Pharmacist Internal Medicine 06/06/24 documented as of this encounter
--- OUTSIDE RECORDS SUMMARY | 2024-06-27 08:56 | XMS_ITS | Encounter Summary ---
Author Organization [employer] Address 75 [facility] 7t [place] [address] Care Team Providers Care Production Gear Cutter Name Role Phone Balaji Quinones MD Primary Care Provide r Kristi Giles PharmD Unavailable [phone] Birgit Franklin PharmD Unavailable [phone] Reason for Visit * Reason Comments Med Refill Encounter Details Date Type Department Care Team (Late st Contact Info) Description 09/17/2022 Refill [facility] [address] [place] [address] Balaji Quinones MD [address] [place] [address] Dry eyes Social History Tobacco Use Types [...] 07/22/2024 1:30 PM EDT Office Visit [facility] [address] [place] [address] [phone] Balaji Quinones MD [address] [place] [address] 09/04/2024 11:00 AM EDT Medication Management [facility] [address] [place] [address] Birgit Franklin PharmD [address] [place] [address] documented as of this encounter Goals Goal [...] insufficiency documented in this encounter Care Teams Production Gear Cutter Relationship Specialty Start Date End Date Balaji Quinones MD [address] [place] [address] PCP - General Internal Medicine 11/25/13 Kristi Giles PharmD [address] [place] [address] Pharmacist Internal Medicine 01/30/22 06/05/24 Birgit Franklin PharmD [address] [place] [address] Pharmacist Internal Medicine 06/06/24 documented as of this encounter
--- OUTSIDE RECORDS SUMMARY | 2024-06-27 08:56 | XMS_ITS | Encounter Summary ---
Author Organization [employer] Address [address] [facility] [address] 7t [place] [address] Care Team Providers Care Service Team Leader Name Role Phone Balaji Quinones MD Primary Care Provide r Birgit Franklin PharmD Unavailable [phone] Encounter Details Date Type Department Care Team (Late st Contact Info) Description 06/24/2024 Orders Only [facility] External Provider, [facility] Social History Tobacco Use Types Packs/Day Years [...] PM EDT Office Visit [facility] MEDICINE [address] [place] [address] Balaji Quinones MD [address] [place] [address] 09/04/2024 11:00 AM EDT Medication Management [facility] 230 [place], [place] [phone] Birgit Franklin PharmD [address] [place] [address] documented as of this encounter Goals Goal [...] EDT Narrative 06/24/2024 11:40 AM EDT ? [facility] ?[address] ?[place] [address] ? Magnetic Resonance Report ? Signed ? Patient: Alonso,Paul ?MR#: [id number] ?? 32 ? : 1955 ?Acct:[id number] ? Age/Sex: 68 / M ?ADM Date: 06/24/24 ? Loc: HO.MRI ? Attending Dr: Lm Rico MD ? Ordering Physician: Lm Rico MD ?? Date of Service: 06/24/24 ?? Procedure(s): MR Prostate wo/w con ?? Accession Number(s): [id number] ? cc: Lm Rico MD; Balaji Sanderson [...] DD/ 0900 ? TD/TT: 06/24/24 0930 ? Veneer Splicer: ? Procedure Note Xenia Gilliam - 06/24/[address] [address] Magnetic Resonance Report Signed Patient: Jayda Alonso#: [id number] 32 : 5Acct:[id number] Age/Sex: 68 / MADM Date: 06/24/24 Loc: HO.MRI Attending Dr: Lm Rico MD Ordering Physician: Lm Rico MD Date of Service: 06/24/24 Procedure(s): MR Prostate wo/w con Accession Number(s): [id number] cc: Lm Rico MD; Balaji Sanderson MD [...] 06/24/24 1137 DD/ 0900 TD/TT: 06/24/24 0930 Veneer Splicer: [facility] External Provider IMG MRI PROCEDURES Final Result documented in this encounter Visit Diagnoses Not on filedocumented in this encounter Additional Health Concerns Assessment Noted Time PHQ-9 Depression Total Score: 0 05/16/19 11:46 AM EDT documented as of this encounter Care Teams Service Team Leader Relationship Specialty Start Date End Date Balaji Quinones MD [address] [place] [address] PCP - General Internal Medicine 11/25/13 Birgit Franklin PharmD [address] [place] [address] Pharmacist Internal Medicine 06/06/24 documented as of this encounter
--- OUTSIDE RECORDS SUMMARY | 2024-06-27 08:57 | XMS_ITS | Encounter Summary ---
Author Organization [employer] Address 75 [facility] 7t [place] [address] Care Team Providers Care Machine Lay Out Worker Name Role Phone Balaji Quinones MD Primary Care Provide r Kristi Giles PharmD Unavailable [phone] Birgit Franklin PharmD Unavailable [phone] Reason for Visit * Reason Comments Med Refill Encounter Details Date Type Department Care Team (Late Contact Info) Description 05/11/2022 Refill [facility] [address] [place] [address] Balaji Quinones MD [address] [place], [place] [phone] Swelling of right middle finger Social History [...] 07/22/2024 1:30 PM EDT Office Visit [facility] [address] [place] [address] Balaji Quinones MD 230 [facility] [place] [address] 09/04/2024 11:00 AM EDT Medication Management [facility] [address] [facility] [place] [address] Birgit Franklin PharmD [address] [place], [place] documented as of this encounter Goals [...] finger documented in this encounter Care Teams Machine Lay Out Worker Relationship Specialty Start Date End Date Balaji Quinones [place] [address] PCP - General Internal Medicine 11/25/13 Kristi Giles [place] [address] Pharmacist Internal Medicine 01/30/22 06/05/24 Birgit Franklin PharmD [address] [facility] [place] [address] Pharmacist Internal Medicine 06/06/24 documented as of this encounter
--- OUTSIDE RECORDS SUMMARY | 2024-06-27 08:57 | XMS_ITS | Encounter Summary ---
Author Organization [employer] Address [address] [facility] 7t [place] [address] Care Team Providers Care Local Sales Associate Name Role Phone Balaji Quinones MD Primary Care Provide r Kristi Giles PharmD Unavailable [phone] Birgit Franklin PharmD Unavailable [phone] Reason for Visit * Reason Onset Date Comments Med Refill 01/30/2023 Encounter Details Date Type Department Care Team ([facility] st Contact Info) Description 01/30/2023 Telephone [facility] [address] [place] [address] Balaji Quinones MD [address] [place] [address] Med Refill Social History Tobacco Use Types [...] 81 MG EC tablet Please sent to [facility] - [place], [place] - [address] [facility] Pt is due on holidays but is requesting if medication could be given before than. documented in this encounter Plan of Treatment Upcoming Encounters Date Type Department Care Team (Late st Contact Info) Description 07/22/2024 1:30 PM EDT Office Visit [facility] MED[facility]INE [address] [place] [address] Balaji Quinones MD [address] [place] [address] 09/04/2024 11:00 AM EDT Medication Management [facility] [address] [place] [address] Birgit Franklin PharmD [address] [place] [address] documented as of this encounter Goals Goal [...] in this encounter Care Teams Local Sales Associate Relationship Specialty Start Date End Date Balaji Quinones MD [address] [place] [address] PCP - General Internal Medicine 11/25/13 Kristi Giles, SarayD [address] [place] [address] Pharmacist Internal Medicine 01/30/22 06/05/24 Birgit Franklin, SarayD [address] [place] [address] Pharmacist Internal Medicine 06/06/24 documented as of this encounter
--- OUTSIDE RECORDS SUMMARY | 2024-06-27 08:57 | XMS_ITS | Encounter Summary ---
Author Organization [employer] Address 75 [facility] 7t [place] [address] Care Team Providers Care Continuous Dryout Operator Helper Name Role Phone Balaji Quinones MD Primary Care Provide r Kristi Giles PharmD Unavailable [phone] Birgit Franklin PharmD Unavailable [phone] Reason for Visit * Reason Onset Date Comments Durable Medical Equipment 01/30/2023 Encounter Details Date Type Department Care Team (Late st Contact Info) Description 01/30/2023 Telephone [facility] MED[facility]INE [address] [place] [address] Balaji Quinones MD [address] [place] [address] Durable Medical Equipment Social History Tobacco Use [...] and taking falls. Please contact pt @ [phone] Welsh Speaker documented in this encounter Plan of Treatment Upcoming Encounters Date Type Department Care Team (Late st Contact Info) Description 07/22/2024 1:30 PM EDT Office Visit [facility] MED[facility]INE [address] [place] [address] Balaji Quinones MD [address] [place] [address] 09/04/2024 11:00 AM EDT Medication Management [facility] MED[facility]INE [address] [place] [address] Birgit Franklin PharmD [address] [place] [address] documented as of this encounter Goals Goal [...] on filedocumented in this encounter Care Teams Continuous Dryout Operator Helper Relationship Specialty Start Date End Date Balaji Quinones MD [address] [place] [address] PCP - General Internal Medicine 11/25/13 Kristi Giles PharmD [address] [place] [address] Pharmacist Internal Medicine 01/30/22 06/05/24 Birgit Franklin PharmD [address] [place] [address] Pharmacist Internal Medicine 06/06/24 documented as of this encounter
--- OUTSIDE RECORDS SUMMARY | 2024-06-27 08:57 | XMS_ITS | Encounter Summary ---
Author Organization [employer] Address 75 [facility] 7t [place] [address] Care Team Providers Care Jigger Artisan Name Role Phone Balaji Quinones MD Primary Care Provide r Kristi Giles PharmD Unavailable [phone] Birgit Franklin PharmD Unavailable [phone] Reason for Visit * Reason Comments Med Refill Encounter Details Date Type Department Care Team (Late st Contact Info) Description 01/30/2023 Refill [facility] [address] [place] [address] Balaji Quinones MD [address] [place], [place] [phone] Social History Tobacco Use Types Packs/Day Years [...] 1:30 PM EDT Office Visit [facility] MED[facility]INE [address] [place] [address] [phone] Balaji Quinones MD [address] [place] [address] 09/04/2024 11:00 AM EDT Medication Management [facility] [address] [place] [address] Birgit Franklin PharmD [address] [place] [address] documented as of this encounter Goals Goal [...] on filedocumented in this encounter Care Teams Jigger Artisan Relationship Specialty Start Date End Date Balaji Quinones MD [address] [place] [address] PCP - General Internal Medicine 11/25/13 Kristi Giles PharmD [address] [place] [address] Pharmacist Internal Medicine 01/30/22 06/05/24 Birgit Franklin PharmD [address] [place] [address] Pharmacist Internal Medicine 06/06/24 documented as of this encounter
--- OUTSIDE RECORDS SUMMARY | 2024-06-27 08:57 | XMS_ITS | Encounter Summary ---
Author Organization [employer] Address 75 [facility] 7t [place] [address] Care Team Providers Care Business Banking Representative Name Role Phone Balaji Quinones MD Primary Care Provide r Kristi Giles PharmD Unavailable [phone] Birgit Franklin PharmD Unavailable [phone] Reason for Visit * Reason Comments Med Refill Encounter Details Date Type Department Care Team (Late st Contact Info) Description 03/01/2023 Refill [facility] [address] [place] [address] Balaji Quinones MD [address] [place] [address] [phone] Type 2 diabetes mellitus without complication, unspecified whether skilled nursing insulin use ([facility]) Social History Tobacco Use Types [...] Visit [facility] [address] [place], [place] [phone] Balaji Quinones MD [address] [place] [address] [phone] 09/04/2024 11:00 AM EDT Medication Management [facility] [address] [place] [address] Birgit Franklin PharmD 230 [place] [address] documented as of this encounter Goals Goal [...] complication, unspecified whether skilled nursing insulin use ([facility]) documented in this encounter Care Teams Business Banking Representative Relationship Specialty Start Date End Date Balaji Quinones MD [address] [place] [address] PCP - General Internal Medicine 11/25/13 Kristi Giles PharmD [address] [place] [address] Pharmacist Internal Medicine 01/30/22 06/05/24 Birgit Franklin PharmD [address] [place] [address] Pharmacist Internal Medicine 06/06/24 documented as of this encounter
--- OUTSIDE RECORDS SUMMARY | 2024-06-27 08:57 | XMS_ITS | Encounter Summary ---
Author Organization [employer] Address 75 [facility] 7t [place] [address] Care Team Providers Care Residential Worker Name Role Phone Balaji Quinones MD Primary Care Provide r Kristi Giles PharmD Unavailable [phone] Birgit Franklin PharmD Unavailable [phone] Reason for Visit * Reason Comments Med Refill Encounter Details Date Type Department Care Team (Late st Contact Info) Description 12/30/2022 Refill [facility] [address] [place] [address] Balaji Quinones MD [address] [place], [place] [phone] Tinea pedis of both feet Social History [...] Description 07/22/2024 1:30 PM EDT Office Visit [facility] [address] [place] [address] [phone] Balaji Quinones MD [address] [place] [address] [phone] 09/04/2024 11:00 AM EDT Medication Management [facility] 230 [place] [address] Birgit Franklin PharmD [address] [place], [place] documented as of this encounter Goals [...] feet documented in this encounter Care Teams Residential Worker Relationship Specialty Start Date End Date Balaji Quinones MD [address] [place], [place] PCP - General Internal Medicine 11/25/13 Kristi Giles PharmD [address] [place], [place] Pharmacist Internal Medicine 01/30/22 06/05/24 Birgit Franklin PharmD [address] [place], [place] Pharmacist Internal Medicine 06/06/24 documented as of this encounter
--- OUTSIDE RECORDS SUMMARY | 2024-06-27 08:57 | XMS_ITS | Encounter Summary ---
Author Organization [employer] Address [address] [facility] 7t [place] [address] Care Team Providers Care Appliance Worker Name Role Phone Balaji Quinones MD Primary Care Provide r Kristi Giles PharmD Unavailable [phone] Birgit Franklin PharmD Unavailable [phone] Reason for Visit * Reason Comments Med Refill Encounter Details Date Type Department Care Team (Late Contact Info) Description 10/27/2022 Refill [facility] [address] [place] [address] Clau Pascual ANP [address] [place] [address] Tinea pedis of both feet Social History [...] Description 07/22/2024 1:30 PM EDT Office Visit [facility] [address] [place] [address] Balaji Quinones MD [address] [place] [address] 09/04/2024 11:00 AM EDT Medication Management [facility] [address] [place] [address] Birgit Franklin PharmD [address] [place] [address] documented as of this encounter Goals Goal [...] feet documented in this encounter Care Teams Appliance Worker Relationship Specialty Start Date End Date Balaji Quinones MD [address] [place] [address] PCP - General Internal Medicine 11/25/13 Kristi Giles PharmD [address] [place] [address] Pharmacist Internal Medicine 01/30/22 06/05/24 Birgit Franklin PharmD [address] [place] [address] Pharmacist Internal Medicine 06/06/24 documented as of this encounter
--- OUTSIDE RECORDS SUMMARY | 2024-06-27 08:57 | XMS_ITS | Encounter Summary ---
Author Organization [employer] Address [address] [facility] 7t [place] [address] Care Team Providers Care Apn Name Role Phone Balaji Quinones MD Primary Care Provide r Kristi Giles PharmD Unavailable [phone] Birgit Franklin PharmD Unavailable [phone] Reason for Visit * Reason Comments Med Refill Encounter Details Date Type Department Care Team (Late st Contact Info) Description 01/28/2023 Refill [facility] [address] [place] [address] Balaji Quinones MD [address] [place] [address] Social History Tobacco Use Types Packs/Day Years [...] Description 07/22/2024 1:30 PM EDT Office Visit [facility] [place] [address] [place] [address] 09/04/2024 11:00 AM EDT Medication Management [facility] [place] [address] Birgit [place] [address] documented as of this encounter Goals Goal [...] on filedocumented in this encounter Care Teams Apn Relationship Specialty Start Date End Date [place] [address] PCP - General Internal Medicine 11/25/13 Kristi Giles PharmD [address] [place] [address] Pharmacist Internal Medicine 01/30/22 06/05/24 Birgit Franklin PharmD [address] [place] [address] Pharmacist Internal Medicine 06/06/24 documented as of this encounter
--- OUTSIDE RECORDS SUMMARY | 2024-06-27 08:57 | XMS_ITS | Encounter Summary ---
Author Organization [employer] Address 75 [facility] 7t [place] [address] Care Team Providers Care Network Programmer Name Role Phone Balaji Quinones MD Primary Care Provide r Kristi Giles PharmD Unavailable [phone] Birgit Franklin PharmD Unavailable [phone] Reason for Visit * Reason Comments Med Refill Encounter Details Date Type Department Care Team (Late st Contact Info) Description 03/08/2023 Refill [facility] [address] [place] [address] Balaji Quinones MD [address] [place] [address] [phone] Folliculitis Social History Tobacco Use Types Packs/Day [...] PM EDT Office Visit [facility] [address] [place] [address] [phone] Balaji Quinones MD [address] [place] [address] [phone] 09/04/2024 11:00 AM EDT Medication Management [facility] [address] [place] [address] Birgit Franklin PharmD [address] [place] [address] documented as of this encounter Goals Goal [...] follicles documented in this encounter Care Teams Network Programmer Relationship Specialty Start Date End Date Balaji Quinones MD [address] [place] [address] PCP - General Internal Medicine 11/25/13 Kristi Giles PharmD [address] [place] [address] Pharmacist Internal Medicine 01/30/22 06/05/24 Birgit Franklin [place] [address] Pharmacist Internal Medicine 06/06/24 documented as of this encounter
--- OUTSIDE RECORDS SUMMARY | 2024-06-27 08:57 | XMS_ITS | Encounter Summary ---
Author Organization [employer] Address [address] [facility] 7t [place] [address] Care Team Providers Care Content Strategy Lead Name Role Phone Balaji Quinones MD Primary Care Provide r Kristi Giles PharmD Unavailable [phone] Birgit Franklin PharmD Unavailable [phone] Reason for Visit * Reason Comments Med Refill Encounter Details Date Type Department Care Team (Late Contact Info) Description 10/27/2022 Refill [facility] [address] [place] [address] Balaji Quinones MD [address] [place] [address] Dermatitis of lower extremity Social History Tobacco [...] PM EDT Office Visit [facility] [address] [place] [address] [phone] Balaji Quinones MD [address] [place] [address] 09/04/2024 11:00 AM EDT Medication Management [facility] [address] [place] [address] Birgit Franklin PharmD [address] [place] [address] documented as of this encounter Goals Goal [...] extremity documented in this encounter Care Teams Content Strategy Lead Relationship Specialty Start Date End Date Balaji Quinones MD [address] [place] [address] PCP - General Internal Medicine 11/25/13 Kristi Giles PharmD [address] [place] [address] Pharmacist Internal Medicine 01/30/22 06/05/24 Birgit Franklin PharmD [address] [place] [address] Pharmacist Internal Medicine 06/06/24 documented as of this encounter
--- OUTSIDE RECORDS SUMMARY | 2024-06-27 08:57 | XMS_ITS | Clinical Summary ---
Author Organization [employer] Address [address] [facility] 7[address] [place] [address] Care Team Providers Care Welder Tech Name Role Phone Balaji Quinones MD Primary Care Provide r Birgit Franklin PharmD Unavailable [phone] Allergies No known active allergies Medications sertraline [...] stripIndications: Type 2 diabetes mellitus with hyperlipidemia ([facility]/HCC) ([facility]) TEST BLOOD SUGAR ONCE DAILY 100 each 12/28/19 24 Active TRUEplus Lancets 33G miscIndications:T ype 2 diabetes mellitus with hyperlipidemia ([facility]) ([facility]) TEST BLOOD SUGAR ONCE DAILY ICD10= 100 each 12/28/19 24 Active metFORMIN (Glucophage) 1000 MG tabletIndications :Type 2 diabetes mellitus without complication, unspecified whether emt intermediate insulin use ([facility]) TAKE 1 TABLET BY MOUTH TWICE [...] 2 diabetes mellitus without complication, unspecified whether emt intermediate insulin use ([facility]) Take 1 tablet (45 mg) by [...] 2 diabetes mellitus without complication, unspecified whether usp insulin use (CMS/HCC) TAKE 1 TABLET BY [...] a follow up Initially seen at our [facility] 12/28/[address] Lloyd Puckett After pt was walking on sidewalk, felt sudden dizzy, unable to describe dizziness, and the next thing he remembers is being on the ground with facial injuries, abrasions on knees and left wrist. His fkttmhqc-fj-rtc brought him to [facility]. Denied headache, chest pain, SOB, n/v/d, [...] follow up scheduled with Dr. Peres his developing machine operator Seen by Neurology who ordered Brain MRI that showed: No acute brain abnormality. No gross abnormal enhancing lesion. 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 Assessment & Plan (02/14/2024 4:19 PM EST): Pt seen at our [facility] 12/28/[address] Lloyd Puckett After pt was walking on sidewalk, felt sudden dizzy, unable to describe dizziness, and the next thing he remembers is being on the ground with facial injuries, abrasions on knees and left wrist. His govqoskh-hz-jwo brought him to [facility]. Denied headache, chest pain, SOB, n/v/d, or recent illness. States has many year h/o similar recurrent episodes of dizziness that he cannot describe, occasionally falls. ECG today shows sinus arrythmia, IVCD, PACs. Pt tells me he already has a follow up scheduled with Dr. Peres his developing machine operator Plan: Obtain ECHO, ECG, EEG. CT of [...] has appointment for an ultrasound coming up [facility] 05/11/2022 Assessment & Plan (05/15/2024 10:56 AM [...] of 3.9 cm. Pt was referred to [facility] surgeons. He was seen 11/06/2016 recommended [...] of 3.9 cm. Pt was referred to [facility] Cardiovascular surgeons. He was seen 11/06/2016 recommended [...] of 3.9 cm. Pt was referred to [facility] Cardiovascular surgeons. He was seen 11/06/2016 recommended [...] of 3.9 cm. Pt was referred to [facility] Cardiovascular surgeons. He was seen 11/06/2016 recommended [...] of 3.9 cm. Pt was referred to [facility] Cardiovascular surgeons. He was seen 11/06/2016 recommended [...] Type Department Care Team Description 06/26/2024 Refill [facility] [address] [place] [address] Balaji Quinones MD Tinea pedis of both feet 06/24/2024 Orders Only External Provider, [facility] 06/23/2024 Refill [facility] [address] [place] [address] Balaji Quinones MD 06/13/2024 Refill [facility] [address] [place] [address] Balaji Quinones MD Dermatitis of lower extremity 06/09/2024 Telephone [facility] [address] [place] [address] Balaji Quinones MD Results 06/04/2024 Telephone [facility] [address] [place] [address] Kaci Meadows, OD 06/03/2024 10:00 AM EDT Clinical Support [facility] [address] [place] [address] Birgit Franklin PharmD Type 2 diabetes mellitus without complication, without long-term current use of insulin (CMS/HCC) (Primary Dx); Mixed hyperlipidemia; Primary hypertension 06/03/2024 Travel 05/27/2024 1:00 PM EDT Office Visit [facility] [address] [place] [address] Kaci Meadows, OD Diabetes type 2, no ocular involvement (CMS/HCC) (Primary Dx); Pseudoexfoliation of lens capsule; Combined forms of age-related cataract of both eyes; Dominant drusen, bilateral; Alternating exotropia; Presbyopia 05/27/2024 Travel 05/15/2024 11:00 AM EDT Office Visit [address] [address] Balaji Quinones MD Prostate cancer, primary, with metastasis from prostate to other site (CMS/HCC) (Primary Dx); Primary hypertension; Type 2 diabetes mellitus without complication, without long-term current use of insulin (CMS/HCC); Aneurysm of ascending aorta without rupture (CMS/HCC); Syncope, unspecified syncope type; Preventative health care 05/15/2024 Orders Only [facility] [address] [place] [phone] Balaji Quinones MD Primary hypertension (Primary Dx) 05/15/2024 Telephone [facility] [address] [place] [phone] Balaji Quinones MD 05/15/2024 Telephone [facility] [address] [place] [address] Balaji Quinones MD PET-CT 05/15/2024 Travel 05/13/2024 Refill [facility] [address] [facility] [place] [address] Balaji Quinones MD 05/11/2024 Refill [facility] [address] [place] [address] Balaji Quinones MD Type 2 diabetes mellitus without complication, unspecified whether usp insulin use ([facility]) 05/06/2024 Patient Outreach [facility] [address] [place] [address] Balaji Quinones MD Pre-visit Planning (Pre-visit planning - LVM ) 05/05/2024 Orders Only GENERIC EXTERNAL DATA DEPARTMENT Provider, Generic External Data 05/04/2024 Telephone [facility] [address] [place] [address] Balaji Quinones MD Med Refill 05/01/2024 Orders Only [facility] [address] [place] [address] Balaji Quinones MD Hypokalemia (Primary Dx) 05/01/2024 Telephone [facility] [address] [place] [address] Balaji Quinones MD Chart Prep 05/01/2024 Telephone [facility] [address] [place] [address] Raquel Kirk, RN Appointment Request 04/30/2024 Refill [facility] [address] [place] [address] Balaji Quinones MD Tinea pedis of both feet 04/28/2024 Orders Only GENERIC EXTERNAL DATA DEPARTMENT Provider, Generic External Data 04/20/2024 Refill [facility] [address] [place] [address] Balaji Quinones MD 04/16/2024 Refill [facility] [address] [place], [place] [phone] Balaji Quinones MD Dermatitis of lower extremity 04/15/2024 Telephone [facility] [address] [facility] [place], [place] [phone] Balaji Quinones MD Results 04/14/2024 Orders Only [facility] [address] [facility] [place] [phone] Balaji Quinones MD Mass in neck (Primary Dx) 04/03/2024 Telephone [facility] [address] [facility] [address] Balaji Quinones MD Results from Last 3 [...] Description 07/22/2024 1:30 PM EDT Office Visit [facility] [address] [place], [place] [phone] Balaji Quinones MD [address] [place], [place] [phone] 09/04/2024 11:00 AM EDT Medication Management [facility] [address] [place], [place] [phone] Birgit Franklin, SarayD [address] [place], [place] [phone] Health Maintenance Due Date Last Done Comments [...] EDT Narrative 06/24/2024 11:40 AM EDT ? [facility] ?[address] ?[place] [address] ? Magnetic Resonance Report ? Signed ? Patient: Alonso,Paul ?MR#: [id number] ?? 33 ? : 1955 ?Acct:[id number] ? Age/Sex: 68 / M ?ADM Date: 06/24/24 ? Loc: HO.MRI ? Attending Dr: Lm Rico MD ? Ordering Physician: Lm Rico MD ?? Date of Service: 06/24/24 ?? Procedure(s): MR Prostate wo/w con ?? Accession Number(s): [id number] ? cc: Lm Rico MD; Balaji Sanderson [...] DD/ 0900 ? TD/TT: 06/24/24 0930 ? Barrel Driller: ? Procedure Note Xenia Gilliam - 06/24/[address] [address] Magnetic Resonance Report Signed Patient: Jayda Alonso#: [id number] 33 : 5Acct:[id number] Age/Sex: 68 / MADM Date: 06/24/24 Loc: HO.MRI Attending Dr: Lm Rico MD Ordering Physician: Lm Rico MD Date of Service: 06/24/24 Procedure(s): MR Prostate wo/w con Accession Number(s): [id number] cc: Lm Rico MD; Balaji Sanderson MD [...] 06/24/24 1137 DD/ 09 TD/TT: 06/24/24 0930 Barrel Driller: [facility] External Provider IMG MRI PROCEDURES Final [...] (Free>4and<10) 49.69(H ) 0.00 - 4.00 ng/mL LABS Comment:A Free PSA was not p [...] Provider LAB BLOOD ORDERAB LES Final Result LABS [address] [place] [phone] * (ABNORMAL) Basic Metabolic Panel (05/05/2024 9:25 AM EDT) Only the most recent of2 resultswithin the time period is included. Sodium 135 135 - 145 mmol/L LABS Potassium 4.4 3.3 - 5.1 mmol/L LABS Chloride 101 96 - 108 mmol/L LABS Carbon Dioxide 30(H) 22 - 29 mmol/L LABS Anion Gap 8(L) 12 - 20 LABS Urea Nitrogen (BUN) 4(L) 9 - 16 mg/dL LABS Creatinine, Serum 0.75 0.5 - 1.4 mg/dL LABS Estimated Glomerular Filt Rate >60 LABS Comment:Chronic Kidney Disea se: Estimated GFR < 60 mL/min/1.49s2Kyswxc Kidney Disease: Estimated GFR < 15 mL/min/1.73m2 Glucose 176(H) 60 - 115 mg/dL LABS Calcium 8.6 8.4 - 10.2 mg/dL LABS Blood Venous blood specimen / Unknown 05/05/2024 9:25 AM EDT 05/05/2024 11:36 AM EDT us Balaji Donnelly MD LAB BLOOD ORDERABLES Final Result LABS [address] [place] [phone] * PSA Stain (04/28/2024 2:20 PM EDT) 04/28/2024 2:20 PM EDT 04/28/2024 2:52 PM EDT Narrative LABS - 05/08/2024 1:35 PM EDT ----- ------- Name: Paul Alonso ? Age/Sex: 68/M ? : 1955 Unit#: [id number] ?? Attend Dr: Ki Castaneda MD ?Re04/28/24 ?Status: DEP SDC ? Location: HO.SSS ?Disch: ? ----- ------- SPEC : [id number] ? RECD: 04/28/24-1451 ? STATUS: ??SOUT ? REQ NUM: [id number] ? REX: 04/28/24-1420 ? SUBM DR: Ki Castaneda MD ? ENTERED: ??04/28/24 ?SP TYPE: Cytology ? OTHR DR: Balaji Sanderson MD ?? ORDERED: ??PSA Stain, Fine Ndl Asp, Cytokeratin, S 100, Synaptophysin, Cyto- enhanced, ?Chromogranin, IHC, Add. immunos/14, Multiplex IHC, CD68, CDX-2, MOC-31, p40, ?PAX-8, PIN4, TTF-1 COMMENTS: Cell Block B sent to [facility] for multiple IHC's on 05/01/24. [...] ? Age/Sex: 68/M ? : 1955 Unit#: [id number] ?? Attend Dr: Ki Castaneda MD ?Re04/28/24 ?Status: DEP SDC ? Location: HO.SSS ?Disch: ? ----- ------- SPEC : [id number] ? RECD: 04/28/24 ? STATUS: ??SOUT ? REQ NUM: [id number] ? REX: 04/28/24-1419 ? SUBM DR: Ki Castaneda MD ? ENTERED: ??04/28/24 ?SP TYPE: Cytology ? OTHR DR: Balaji Sanderson MD ?? ORDERED: ??PSA Stain, Fine Ndl Asp, Cytokeratin, S 100, Synaptophysin, Cyto- enhanced, ?Chromogranin, IHC, Add. /14, Multiplex IHC, CD68, CDX-2, MOC-31, p40, ?PAX-8, PIN4, TTF-1 COMMENTS: Cell Block B sent to [facility] for multiple IHC's on 05/01/24. ? Gross Description ?(Continued) the intraoperative diagnosis as follows: 1st pass: ??Few bronchial cells present. 2nd pass: ??Adequate; lesional cells present. AR, 04/28/2024 ([facility]) This case was reviewed intradepartmentally. Special stains ordered and performed: ??Immunostains for synaptophysin, chromogranin, Ki-67, TTF-1, MOC-31, CD20, CD56, CK20, CK7, PAX8, CD68, jolly-cytokeratin, p40, S100, PSA, CDX2, CD117 on cell block B; special stain PAS on cell block. Technical services for CD20, CD56, chromogranin, MOC31, CK20, CK7, CK20, synaptophysin and TTF-1 immunohistochemistry studies performed at [employer] Jennifer Arreg[place], [place]; [facility] #[id number] Copies To: ?? Balaji Sanderson MD ?? [facility] ?? [address] [facility] ?? [place] [address] ?? [phone] ?? Ki Castaneda MD ?? [facility] Pulmon[facility] Services ?? [address] ?? [place] [address] ?? [phone] ----- ------- Signed (signature on file) Malini Quach MD 05/08/24 1335 ? ----- ------- ? END OF REPORT ? Generic External Data Provider LAB PATHOLOGY ORD ERABLES Final Result Performing Organization Address [facility] de Phone Number LABS [address] [place] [phone] * Gram stain (04/28/2024 2:20 PM EDT) 04/28/2024 2:20 PM EDT 04/29/2024 8:42 AM EDT Comment:Bronc Wash Narrative LABS - 04/29/2024 8:50 AM EDT Test not performed Routine Culture Test not performed Unable to perform culture due to laboratory error. Sample already processed by the pathology department. Specimen Source: Bronchial Washings Generic External Data Provider LAB MICROBIOLOGY - GENERAL ORDERABLES Final Result Performing Organization Address [facility] de Phone Number LABS [address] [place] [phone] * (ABNORMAL) Glucose, Whole Blood (04/28/2024 10:28 AM EDT) Glucose, Whole Blood 166(H) 60 - 115 mg/dL LABS Comment:METER #: [id number] 04/28/2024 10:2 8 AM EDT 04/28/2024 10:33 AM EDT Generic External Data Provider LAB BLOOD ORDERAB LES Final Result Performing Organization Address [facility] de Phone Number LABS [address] [place] [phone] * Mr Brain w/ and w/o Contrast (04/23/2024 10:50 AM EDT) Anatomical Region Laterality Modality Brain Magnetic Resonan ce 04/23/2024 10:5 0 AM EDT Narrative 04/23/2024 12:50 PM EDT ? [facility] ?[address] ?[place] [address] ? Magnetic Resonance Report ? Signed ? Patient: Alonso,Paul ?MR#: [id number] ?? 33 ? : 1955 ?Acct:[id number] ? Age/Sex: 68 / M ?ADM Date: 04/23/24 ? Loc: HO.MRI ? Attending Dr: Jessica Palacios MD ? Ordering Physician: Jessica Palacios MD ?? Date of Service: 04/23/24 ?? Procedure(s): MR head/brain wo/w con ?? Accession Number(s): [id number] ? cc: Balaji Sanderson MD; Jessica Palacios [...] DD/ 1050 ? TD/TT: 04/23/24 1115 ? Barrel Driller: ? Procedure Note Donotuseinterpreter, Image - 04/23/2024 [place] [address] Magnetic Resonance Report Signed Patient: Jayda Alonso#: [id number] 33 : 5Acct:[id number] Age/Sex: 68 / MADM Date: 04/23/24 Loc: HO.MRI Attending Dr: Jessica Palacios MD Ordering Physician: Jessica Palacios MD Date of Service: 04/23/24 Procedure(s): MR head/brain wo/w con Accession Number(s): [id number] cc: Balaji Sanderson MD; Jessica Palacios MD [...] 04/23/24 1247 DD/ 1050 TD/TT: 04/23/24 1115 Barrel Driller: [facility] External Provider IMG MRI PROCEDURES Final Result * Referral to Neurology (04/10/2024) Balaji Donnelly MD OUTPATIENT REFERRAL O RDERABLES Final Result * CTA Chest w/ and w/o Contrast (04/03/2024 12:33 PM EST) Anatomical Region Laterality Modality Body, Chest Computed Tomogra phy 04/03/2024 12:3 3 PM EST Narrative 04/03/2024 12:34 PM EST ? [facility] ?[address] ?[place] [address] ? CT Scan Report ? Signed with Addenda ? Patient: Alonso,Paul ?MR#: [id number] ?? 33 ? : 1955 ?Acct:[id number] ? Age/Sex: 68 / M ?ADM Date: 02/20/25 ? Loc: HO.CT ? Attending Dr: Balaji Sanderson MD ? Ordering Physician: Balaji Sanderson MD ?? Date of Service: 04/03/24 ?? Procedure(s): CT angio chest aorta ?? Accession Number(s): [id number] ? cc: Balaji Sanderson MD ? Report Number: ?? [id number]: Total DLP = ??212.27 mGy-cm ?ADDENDUM ?? [...] DD/ 1233 ? TD/TT: 04/03/24 1233 ? Barrel Driller: ? Procedure Note Donotuseinterpreter, Image - 04/04/[address] [address] [address] Scan Report Signed with Addenda Patient: Jayda Alonso#: [id number] 33 : 5Acct:[id number] Age/Sex: 68 / MADM Date: 04/03/24 Loc: HO.CT Attending Dr: Balaji Sanderson MD Ordering Physician: Balaji Sanderson MD Date of Service: 04/03/24 Procedure(s): CT angio chest aorta Accession Number(s): [id number] cc: Balaji Sanderson MD Report Number: [id number]: Total DLP = 212.27 mGy-cm ADDENDUM This [...] 04/03/24 1234 DD/ 1233 TD/TT: 04/03/24 1233 Barrel Driller: Balaji Donnelly MD IMG CT PROCEDURES Jaspal tennille Result - Final * CT Head w/o Contrast (04/03/2024 10:11 AM EST) Anatomical Region Laterality Modality Head, Neck Computed Tomogra phy 04/03/2024 10:1 1 AM EST Narrative 04/03/2024 10:12 AM EST ? [facility] ?[address] ?[place] [address] ? CT Scan Report ? Signed ? Patient: Alonso,Paul ?MR#: [id number] ?? 33 ? : 1955 ?Acct:[id number] ? Age/Sex: 68 / M ?ADM Date: 02/20/25 ? Loc: HO.CT ? Attending Dr: Balaji Sanderson MD ? Ordering Physician: Balaji Sanderson MD ?? Date of Service: 04/03/24 ?? Procedure(s): CT head/brain wo IV con ?? Accession Number(s): [id number] ? cc: Balaji Sanderson MD ? Report Number: ?? [id number]: Total DLP = ??672.66 mGy-cm ? CLINICAL HISTORY: syncope ? CT head without contrast ? Comparison: None ? Findings: ?? No intra-axial mass, midline shift, hydrocephalus, or acute hemorrhage. ?? Nivi-rq-cxfhxxsx age-related cerebral hemispheric white matter changes. ?? [...] DD/ 1011 ? TD/TT: 04/03/24 1011 ? Barrel Driller: ? Procedure Note Tawana, Image - 04/03/[address] [place] [address] [address] Scan Report Signed Patient: Jayda Alonso#: [id number] 33 : 5Acct:[id number] Age/Sex: 68 / MADM Date: 04/03/24 Loc: HO.CT Attending Dr: Balaji Sanderson MD Ordering Physician: Balaji Sanderson MD Date of Service: 04/03/24 Procedure(s): CT head/brain wo IV con Accession Number(s): [id number] cc: Balaji Sanderson MD Report Number: [id number]: Total DLP = 672.66 mGy-cm CLINICAL HISTORY: syncope CT head without contrast Comparison: None Findings: No intra-axial mass, midline shift, hydrocephalus, or acute hemorrhage. Dcld-qa-pstzixlx age-related cerebral hemispheric white matter changes. Small [...] 04/03/24 1012 DD/ 1011 TD/TT: 04/03/24 1011 Barrel Driller: Balaji Donnelly MD IMG CT PROCEDURES Fin [...] 1:23 PM EDT) Triglycerides 158(H) <150 mg/dL [facility] LAB[facility] Comment:Desirable Triglyceri de: less than 150 mg/dLBorderline High Triglyceride 150-199 mg/dLHigh Triglyceride: 200-499 mg/dLVery High Triglyceride: greater than or equal to 5OO mg/dL Cholesterol 127 <200 mg/dL LABS Comment:Desirable Cholestero l: less than 200 mg/dLBorderline High Cholesterol: 200-239 mg/dLHigh Cholesterol: greater than 239 mg/dL LDL Cholesterol Calculated 66 <100 mg/dL LABS Comment:Desirable LDL: less than 100 mg/dLNear Optimal/Above Optimal LDL: 110- 129 mg/dLBorderline High LDL: 130-159 mg/dLHigh LDL: 160-189 mg/dLVery High LDL: greater than or equal to 190 mg/dL HDL Cholesterol 30(L) >40 mg/dL [facility] Comment:Desirable HDL: great er than 40 mg/dL Note: This HDL assay may give artificially low results in patients with liver disease. Blood 06/19/2023 1:23 PM EDT 06/19/2023 4:12 PM EDT Balaji Donnelly MD LAB BLOOD ORDERABLES Final Result Performing Organization Address [facility]/ZIP Co de Phone Number LABS [address] [place] [phone] * Albumin, Random Urine W/Creatinine (06/19/2023 12:00 AM EDT) Creatinine, Urine 137.18 mg/dL [facility] Microalbumin Urine 21.0 mg/L [facility] Microalbum Creatinine Ratio Ur 15.3 <30 ug/mg cr LABS Comment:Albumin/Creatinine R atio Reference Ranges: Normal: < 30 ug/mg creatinine Microalbuminuria: 30 - 300 ug/mg creatinineClinical Albuminuria: > 300 ug/mg creatinine Urine (Urine, Random) 06/19/2023 06/19/2023 Balaji Donnelly MD LAB URINE ORDERABLES Final Result Performing Organization Address [facility]/ZIP Co de Phone Number LABS [address] [place] [address] [phone] * Hepatitis C Antibody with Reflex to HCV, RNA, Quantitative, Real-Time PCR (07/05/2022 8:13 AM EDT) Hepatitis C Antibody NON-REACT MADDY NON-REACT MADDY [facility] Index 0.04 <1.00 [facility] Comment: HCV antibody was non-reactive. There is no laboratory evidence of HCV infection. In most cases, no further action is required. However, if recent HCV exposure is suspected, a test for HCV RNA (test code 45101) is suggested. For additional information please refer to http://[employer]/faq/IZG77u0 (This link is being provided for informational/ educational purposes only.) Blood Venous blood specimen / Unknown 07/05/2022 8:13 AM EDT 07/05/2022 8:14 AM EDT Narrative [facility] - 07/06/2022 11:54 AM EDT FASTING:YES FASTING: YES Balaji Donnelly MD LAB BLOOD ORDERABLES Final Result [facility] [address], [place] [address] [employer] [place] [address] [place] [phone] * Colonoscopy (07/10/2017) Colonoscopy Normal Normal 07/10/2017 Shikha Morel - 07/10/2017 3:47 PM EDT Recommended 10 year follow up ( [facility] ) Historical Provider HEALTH MAINTENANCE Final Result from Last 3 Months or Most Recently Relevant to Health Maintenance Insurance [facility] [employer] Care Teams Welder Tech Relationship Specialty Start Date End Date Balaji Quinones MD [address] [place] [address] PCP - General Internal Medicine 11/25/13 Birgit Franklin, Quentin [address] [place] [address] Pharmacist Internal Medicine 06/06/24
--- OUTSIDE RECORDS SUMMARY | 2024-06-27 08:57 | XMS_ITS | Encounter Summary ---
Author Organization [employer] Address [address] [facility] 7t [place] [address] Care Team Providers Care Woven Label Designer Name Role Phone Balaji Quinones MD Primary Care Provide r Kristi Giles PharmD Unavailable [phone] Birgit Franklin PharmD Unavailable [phone] Reason for Visit * Reason Comments Med Refill Encounter Details Date Type Department Care Team (Late st Contact Info) Description 01/30/2023 Refill [facility] [address] [place] [phone] Balaji Quinones MD [address] [place], [place] [phone] Social History Tobacco Use Types Packs/Day Years [...] 1:30 PM EDT Office Visit [facility] [address] [place] [address] [phone] Balaji Quinones MD [address] [place] [phone] 09/04/2024 11:00 AM EDT Medication Management [facility] [address] [place] [phone] Birgit Franklin PharmD [address] [place] [address] documented as of this encounter Goals Goal [...] on filedocumented in this encounter Care Teams Woven Label Designer Relationship Specialty Start Date End Date Balaji Quinones MD [address] [place] [phone] PCP - General Internal Medicine 11/25/13 Kristi Giles PharmD [address] [place] [phone] Pharmacist Internal Medicine 01/30/22 06/05/24 Birgit Franklin PharmD [address] [place] [phone] Pharmacist Internal Medicine 06/06/24 documented as of this encounter
--- OUTSIDE RECORDS SUMMARY | 2024-06-27 08:57 | XMS_ITS | Encounter Summary ---
Author Organization [employer] Address 75 [facility] 7t [place] [address] Care Team Providers Care Records Custodian Name Role Phone Balaji Quinones MD Primary Care Provide r Kristi Giles PharmD Unavailable [phone] Birgit Franklin PharmD Unavailable [phone] Reason for Visit * Reason Comments Med Refill Encounter Details Date Type Department Care Team ([facility] st Contact Info) Description 12/24/2023 Refill [facility] [address] [place] [address] Balaji Quinones MD 230 [place] [address] Folliculitis Social History Tobacco Use Types Packs/Day [...] Visit [facility] [address] [place] [address] [phone] Balaji Quinones MD [address] [place] [address] 96[address] 09/04/2024 11:00 AM EDT Medication Management [facility] [address] [place] [phone] Birgit Franklin PharmD [address] [place] [address] 8[address] documented as of this encounter Goals Goal [...] documented as of this encounter Care Teams Records Custodian Relationship Specialty Start Date End Date Balaji Quinones MD [address] [place] [address] 66371 PCP - General Internal Medicine 11/25/13 Kristi Giles, Quentin [address] [place] [address] 16396 Pharmacist Internal Medicine 01/30/22 06/05/24 Birgit Franklin PharmD [address] [place] [address] 69527 Pharmacist Internal Medicine 06/06/24 documented as of this encounter
--- OUTSIDE RECORDS SUMMARY | 2024-06-27 08:57 | XMS_ITS | Encounter Summary ---
Author Organization [employer] Address 75 [facility] 7t [place] [address] Care Team Providers Care Credit Professional Name Role Phone Balaji Quinones MD Primary Care Provide r Kristi Giles PharmD Unavailable [phone] Birgit Franklin PharmD Unavailable [phone] Reason for Visit * Reason Comments Med Refill Encounter Details Date Type Department Care Team ([facility] Contact Info) Description 04/17/2022 Refill [facility] MED[facility] [address] [place] [address] Brook Guerrero MD [address] [place] [address] [phone] Other chronic pain Social History Tobacco Use [...] Upcoming Encounters Date Type Department Care Team ([facility] Contact Info) Description 07/22/2024 1:30 PM EDT Office Visit [facility] MEDICINE [address] [place] [address] Balaji Quinones MD 230 [place] [address] 09/04/2024 11:00 AM EDT Medication Management [facility] MED[facility] [address] [place], [place] [phone] Birgit Franklin PharmD 230 [place], [place] documented as of this encounter Goals [...] pain documented in this encounter Care Teams Credit Professional Relationship Specialty Start Date End Date Balaji Quinones MD Maria Isabel [place], [place] PCP - General Internal Medicine 11/25/13 Kristi Giles PharmD [address] [place] [address] Pharmacist Internal Medicine 01/30/22 06/05/24 Birgit Franklin PharmD Maria Isabel [place], [place] Pharmacist Internal Medicine 06/06/24 documented as of this encounter
[2024-06-27 11:02] LABS: Prostate Specific Antigen 7.65 ng/mL (<0.05-4.0)
== END 2024-06-27 08:43 | disposition home or self-care (01) ==
LOC: HO.10HDL 08:42
PROVIDERS: Visit Provider Urology
DX: Z12.5 Encounter for screening for malignant neoplasm of prostate (principal)
CPT/HCPCS: 36415; 84153

== ENCOUNTER 2024-07-01 09:58 | Outpatient (AMB) | payer MEDICARE, MEDICAID, SELFPAY ==
--- NOTE | 2024-07-01 10:00 | A.OFFVIS_ITS ---
Intake Visit Reasons: 6m/PSA/PSMA Intake Note: Pt presents to the office today for a 6 month follow up/PSA/PSMA. Sulfuric Acid Plant Supervisor Required: Yes Sulfuric Acid Plant Supervisor Language: Guinean Allergies No Known Allergies Allergy (Verified 07/01/24 10:00) HPI Comments Details: Paul is a pleasant Guinean-speaking male. He is a patient of Dr. Grimes. He is seen for the following urologic conditions - metastatic prostate cancer in setting of diabetes Guinean translation provided by qualified chief medical officer Discussed MRI findings Discussed response to GnRH significant drop in PSA Plan for addition of antiandrogen Needs baseline DEXA scan 07/06 - GnRH 06/26/24 - Prostate MRI - NAD prostate - confirms kristi disease. No evidence of bob disease. - switch from bicalutamide to abiraterone 06/06 Interval history Presented to pulmonary with shortness of breath Chest CT with pulmonary mass Bronchoscopy cytology shows cells consistent with metastatic prostate cancer PET- CT - 06/06 - positive pulmonary mass, para-aortic, external lymph nodes bilateral consistent with metastatic prostate cancer Prostate biopsy - 10/05 acute and chronic inflammation Initiated bicalutamide Elevated PSA 07/05 12.5, 05/06 49, 06/27/24 7.6 Repeat PSA 15.8 Prostate biopsy - 10/05 acute and chronic inflammation PFSH Medical History Lymphadenopathy, mediastinal Thoracic aortic aneurysm (TAA) Depression Hyperlipemia HTN (hypertension) Diabetes Anemia Surgical History Hx of prostate biopsy Hx of umbilical hernia repair H/O colonoscopy Family History Sister Breast cancer Social History Household Members: None Housing: Apartment Are you a primary patient care specialist to a significant other at home: No Do you presently have visiting nurse or other home services: No Alcohol intake: former Patient Tobacco Use Status: Never used Tobacco service: No Current occupational status: disabled Review of Systems Const Denies chills and Denies fever(s) Card Reports no additional complaints and Denies syncope Resp Denies cough GI Denies abdominal pain and Denies heartburn Reports as per HPI and Denies change in libido Neuro Denies syncope Psych Denies change in libido Endo Denies change in libido Physical Exam Const General: cooperative, healthy appearing, comfortable and no acute distress Orientation/consciousness: patient oriented x3 HEENT Face and sinus: Yes normal facial exam Mouth: moist mucous membranes Neck Neck: Yes normal visual inspection, Yes full ROM and Yes trachea midline Chest Chest palpation & inspection: normal inspection of the chest Resp Effort & Inspection: normal respiratory effort, able to speak in complete sentences and no respiratory distress GI Inspection: Yes normal to inspection Back/Spine/Pelvis Cervical Spine: normal cervical lordosis Thoracic/Lumbar Spine: thoracic and lumbar spine normal to inspection Skin General skin exam: no rashes or lesions noted Neuro General: patient oriented x3, gait normal, tone normal and moves all extremities Extrem General: Yes normal to inspection and Yes capillary refill normal Assessment & Plan Assessment & Plan (1) 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: Code(s): C61 - Malignant neoplasm of prostate; C77.1 - Secondary and unspecified malignant neoplasm of intrathoracic lymph nodes Category: Medical (2) Prostate cancer metastatic to intrapelvic lymph node: Code(s): C61 - Malignant neoplasm of prostate; C77.5 - Secondary and unspecified malignant neoplasm of intrapelvic lymph nodes Category: Medical Plan Add antiandrogen Start bicalutamide DEXA scan baseline Three-month follow-up lab work Orders: Orders Prostate Specific Antigen 3 Months C61 - Malignant neoplasm of prostate, C77.1 - Secondary and unspecified malignant neoplasm of intrathoracic lymph nodes Testosterone, Total 3 Months C61 - Malignant neoplasm of prostate, C77.1 - Secondary and unspecified malignant neoplasm of intrathoracic lymph nodes Prostate Specific Antigen 06/27/24 Z12.5 - Encounter for screening for malignant neoplasm of prostate XR DEXA axial skeleton 3 Months C61 - Malignant neoplasm of prostate, C77.1 - Secondary and unspecified malignant neoplasm of intrathoracic lymph nodes, M85.80 - Other specified disorders of bone density and structure, unspecified site Medications: New prednisone 2.5 mg PO BID 30 days 60 tabs 5RF C61 - Malignant neoplasm of prostate, C77.1 - Secondary and unspecified malignant neoplasm of intrathoracic lymph nodes, C77.2 - Secondary and unspecified malignant neoplasm of intra- abdominal lymph nodes Discontinued bicalutamide Discontinued Reason: Doctor's Order 50 mg PO TID 30 days 90 tabs 0RF C61 - Malignant neoplasm of prostate, C77.1 - Secondary and unspecified malignant neoplasm of intrathoracic lymph nodes finasteride Discontinued Reason: Doctor's Order 5 mg PO DAILY 90 days 90 tabs 0RF N13.8 - Other obstructive and reflux uropathy, N40.1 - Benign prostatic hyperplasia with lower urinary tract symptoms, R33.9 - Retention of urine, unspecified, R97.20 - Elevated prostate specific antigen [PSA] Patient Instructions: This note is constructed using voice recognition software. While every effort has been made to ensure accuracy bicycle inspector errors may have been included. Imaging studies, laboratory and physical exam results were discussed and reviewed in detail. No major barriers to patient understanding were identified. An opportunity to ask questions regarding the treatment plan was provided. All questions were answered. The patient expressed understanding and agreement with the above treatment plan. The patient is aware they should contact our office by phone for worsening of their current condition or the appearance of new urologic symptoms. Compliance is encouraged with any medications and followup testing that is ordered. It is a privilege to participate in the urologic care of your patient. If you have any questions or concerns regarding treatment for the above conditions, or other urologic issues, please do not hesitate to contact me. The office telephone contact is [phone]. Sincerely, Dr Lm Rico MD, [facility] - Urology Compassionate Specialist Care for the Genitourinary System Coding Level of Care Code Est Pt Level 4 (11174) Complex EM visit Add On G2211 Diagnoses 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 C61; C77.1 Prostate cancer metastatic to intrapelvic lymph node C61; C77.5
--- OUTSIDE RECORDS SUMMARY | 2024-07-01 11:07 | XMS_ITS | Encounter Summary ---
Author Organization [employer] Address 75 [facility] 7t [place] [address] Care Team Providers Care Puppet Master Name Role Phone Balaji Quinones MD Primary Care Provide r Kristi Giles PharmD Unavailable [phone] Birgit Franklin PharmD Unavailable [phone] Reason for Visit * Reason Comments Med Refill Encounter Details Date Type Department Care Team (Late st Contact Info) Description 08/01/2023 Refill [facility] 230 [place] [address] Vani Stallworth MD 230 [place] [address] Folliculitis Social History Tobacco Use Types Packs/Day [...] Office Visit [facility] MEDICINE [address] [place] [address] Balaji Quinones MD [address] [place] [address] 09/04/2024 11:00 AM EDT Medication Management [facility] [address] [place] [address] Birgit Franklin PharmD [address] [place] [phone] documented as of this encounter Goals Goal [...] documented as of this encounter Care Teams Puppet Master Relationship Specialty Start Date End Date Balaji Quinones MD [address] [place] [address] 6[address]13 PCP - General Internal Medicine 11/25/13 Kristi Giles, Quentin [address] [place] [address] 92168 Pharmacist Internal Medicine 01/30/22 06/05/24 Birgit Franklin PharmD [address] [place] [address] 94706 Pharmacist Internal Medicine 06/06/24 documented as of this encounter
--- OUTSIDE RECORDS SUMMARY | 2024-07-01 11:07 | XMS_ITS | Encounter Summary ---
Author Organization [employer] Address 75 [facility] 7t [place] [address] Care Team Providers Care Field Supervisor Name Role Phone Balaji Quinones MD Primary Care Provide r Kristi Giles PharmD Unavailable [phone] Birgit Franklin PharmD Unavailable [phone] Encounter Details Date Type Department Care Team (Late st Contact Info) Description 01/28/2022 Abstract [facility] MEDICINE [address] [place] [phone] Kristi Giles, PharmD [address] [place] [address] Social History Tobacco Use Types Packs/Day Years [...] Description 07/22/2024 1:30 PM EDT Office Visit [facility] MEDICINE [address] [place] [address] [phone] Balaji Quinones MD [address] [place] [address] 09/04/2024 11:00 AM EDT Medication Management [facility] MED[facility] 230 [place] [address] Birgit Franklin PharmD [address] [place] [address] documented as of this encounter Goals Goal [...] on filedocumented in this encounter Care Teams Field Supervisor Relationship Specialty Start Date End Date Balaji Quinones MD [address] [place] [address] 75670 PCP - General Internal Medicine 11/25/13 Kristi Giles PharmD [address] [place] [address] 59608 Pharmacist Internal Medicine 01/30/22 06/05/24 Birgit Franklin PharmD [address] [place] [address] 39304 Pharmacist Internal Medicine 06/06/24 documented as of this encounter
--- OUTSIDE RECORDS SUMMARY | 2024-07-01 11:07 | XMS_ITS | Encounter Summary ---
Author Organization [employer] Address 75 [facility] 7t [place] [address] Care Team Providers Care Container Shop Welder Name Role Phone Balaji Quinones MD Primary Care Provide r Kristi Giles PharmD Unavailable [phone] Birgit Franklin PharmD Unavailable [phone] Reason for Visit * Reason Comments Med Refill Encounter Details Date Type Department Care Team ([facility] st Contact Info) Description 06/25/2023 Refill [facility] [address] [place] [address] Balaji Quinones MD 230 [place] [address] Folliculitis Social History Tobacco Use Types Packs/Day [...] Description 07/22/2024 1:30 PM EDT Office Visit [facility] [address] [place] [address] 19674 Balaji Quinones MD [address] [place] [address] 09/04/2024 11:00 AM EDT Medication Management [facility] [address] [place] [address] Birgit Franklin PharmD [address] [place] [address] 9[address]78 documented as of this encounter Goals Goal [...] documented as of this encounter Care Teams Container Shop Welder Relationship Specialty Start Date End Date Balaji Quinones MD [address] [place] [address] 82410 PCP - General Internal Medicine 11/25/13 Kristi Giles, SarayD [address] [place] [address] 56273 Pharmacist Internal Medicine 01/30/22 06/05/24 Birgit Franklin PharmD [address] [place] [address] 96851 Pharmacist Internal Medicine 06/06/24 documented as of this encounter
--- OUTSIDE RECORDS SUMMARY | 2024-07-01 11:07 | XMS_ITS | Encounter Summary ---
Author Organization [employer] Address 75 [facility] 7t [place] [address] Care Team Providers Care Director Of Field Service Name Role Phone Balaji Quinones MD Primary Care Provide r Kristi Giles PharmD Unavailable [phone] Birgit Franklin PharmD Unavailable [phone] Reason for Visit * Reason Comments Med Refill Encounter Details Date Type Department Care Team (Late st Contact Info) Description 06/11/2023 Refill [facility] [address] [place], [place] [phone] Balaji Quinones MD 230 [place] [address] Swelling of right middle finger Social History [...] 1:30 PM EDT Office Visit [facility] MEDICINE [address] [place] [address] Balaji Quinones MD [address] [place] [address] 09/04/2024 11:00 AM EDT Medication Management [facility] MEDICINE [address] [place] [address] 74[address] Birgit Franklin PharmD [address] [place] [address] 41260 documented as of this encounter Goals Goal [...] of this encounter Care Teams Director Of Field Service Relationship Specialty Start Date End Date Balaji Quinones MD [address] [place] [address] 57820 PCP - General Internal Medicine 11/25/13 Kristi Giles, Quentin [address] [place] [address] 04053 Pharmacist Internal Medicine 01/30/22 06/05/24 Birgit Franklin PharmD [address] [place] [address] 54687 Pharmacist Internal Medicine 06/06/24 documented as of this encounter
--- OUTSIDE RECORDS SUMMARY | 2024-07-01 11:08 | XMS_ITS | Encounter Summary ---
Author Organization [employer] Address 75 [facility] 7t [place] [address] Care Team Providers Care Rug Setter Axminster Name Role Phone Balaji Quinones MD Primary Care Provide r Kristi Giles PharmD Unavailable [phone] Birgit Franklin PharmD Unavailable [phone] Reason for Visit * Reason Comments Med Refill Encounter Details Date Type Department Care Team (Late st Contact Info) Description 01/30/2023 Refill [facility] [address] [place] [address] 18510 Balaji Quinones MD 230 [place], [place] [phone] Social History Tobacco Use Types Packs/Day Years [...] Office Visit [facility] MEDICINE [address] [place] [address] [phone] Balaji Quinones MD [address] [place] [address] 86618 09/04/2024 11:00 AM EDT Medication Management [facility] MED[facility] [address] [place] [address] 30251 Birgit Franklin PharmD [address] [place] [address] documented as of this encounter Goals Goal [...] on filedocumented in this encounter Care Teams Rug Setter Axminster Relationship Specialty Start Date End Date Balaji Quinones MD [address] [place] [address] 20205 PCP - General Internal Medicine 11/25/13 Kristi Giles PharmD [address] [place] [address] 55847 Pharmacist Internal Medicine 01/30/22 06/05/24 Birgit Franklin PharmD [address] [place] [address] 17270 Pharmacist Internal Medicine 06/06/24 documented as of this encounter
--- OUTSIDE RECORDS SUMMARY | 2024-07-01 11:08 | XMS_ITS | Encounter Summary ---
Author Organization [employer] Address 75 [facility] 7t [place] [address] Care Team Providers Care Teacher Music Name Role Phone Balaji Quinones MD Primary Care Provide r Kristi Giles PharmD Unavailable [phone] Birgit Franklin PharmD Unavailable [phone] Reason for Visit * Reason Comments Med Refill Encounter Details Date Type Department Care Team (Late st Contact Info) Description 01/28/2023 Refill [facility] 230 [place] [address] Balaji Quinones MD [address] [place] [address] Social History Tobacco Use Types Packs/Day Years [...] [facility] [place] [address] Balaji [place] [address] 09/04/2024 11:00 AM EDT Medication Management [facility] [place] [address] Birgit Franklin [place] [address] documented as of this encounter Goals Goal [...] on filedocumented in this encounter Care Teams Teacher Music Relationship Specialty Start Date End Date Balaji Quin[place] [address] PCP - General Internal Medicine 11/25/13 Kristi Giles PharmD [address] [place] [address] 64497 Pharmacist Internal Medicine 01/30/22 06/05/24 Birgit Franklin PharmD [address] [place] [address] 48427 Pharmacist Internal Medicine 06/06/24 documented as of this encounter
--- OUTSIDE RECORDS SUMMARY | 2024-07-01 11:08 | XMS_ITS | Encounter Summary ---
Author Organization [employer] Address 75 [facility] 7t [place] [address] Care Team Providers Care Equipment Processer Storage Name Role Phone Balaji Quinones MD Primary Care Provide r Birgit Franklin PharmD Unavailable Reason for Visit * Reason Comments Med Refill Encounter Details Date Type Department Care Team ([facility] st Contact Info) Description 06/26/2024 Refill [facility] [address] [place] [address] Balaji Quinones MD [address] [place] [address] Tinea pedis of both feet Social History [...] Description 07/22/2024 1:30 PM EDT Office Visit [facility] MEDICINE [address] [place] [address] 8[address] Balaji Quinones MD [address] [place] [address] 09/04/2024 11:00 AM EDT Medication Management [facility] [address] [place] [phone] Birgit Franklin, Quentin [address] [place] [address]53 documented as of this encounter Goals Goal [...] documented as of this encounter Care Teams Equipment Processer Storage Relationship Specialty Start Date End Date Balaji Quinones MD [address] [place] [address] PCP - General Internal Medicine 11/25/13 Birgit Franklin PharmD [address] [place] [address] Pharmacist Internal Medicine 06/06/24 documented as of this encounter
--- OUTSIDE RECORDS SUMMARY | 2024-07-01 11:08 | XMS_ITS | Encounter Summary ---
Author Organization [employer] Address 75 [facility] 7t [place] [address] Care Team Providers Care Tie Cutter Name Role Phone Balaji Quinones MD Primary Care Provide r Kristi Giles PharmD Unavailable [phone] Birgit Franklin PharmD Unavailable [phone] Reason for Visit * Reason Comments Med Refill Encounter Details Date Type Department Care Team (Late Contact Info) Description 10/27/[address] [facility]ALK[facility]IN [facility] [address] [place] [address] Clau Pascual ANP [address] [place] [address] Tinea pedis of both feet Social History [...] Visit [facility] MEDICINE [address] [place] [address] Balaji Quinones MD [address] [place] [address] 09/04/2024 11:00 AM EDT Medication Management [facility] MED[facility]INE [address] [place] [address] 639[address] Birgit Franklin PharmD [address] [place] [address] documented as of this encounter Goals Goal [...] feet documented in this encounter Care Teams Tie Cutter Relationship Specialty Start Date End Date Balaij Quinones MD [address] [place] [address] PCP - General Internal Medicine 11/25/13 Kristi Giles PharmD [address] [place] [address] Pharmacist Internal Medicine 01/30/22 06/05/24 Birgit Franklin PharmD [address] [place] [address] Pharmacist Internal Medicine 06/06/24 documented as of this encounter
--- OUTSIDE RECORDS SUMMARY | 2024-07-01 11:08 | XMS_ITS | Encounter Summary ---
Author Organization [employer] Address 75 [facility] 7t [place] [address] Care Team Providers Care Microbiological Analyst Name Role Phone Balaji Quinones MD Primary Care Provide r Kristi Giels PharmD Unavailable [phone] Birgit Franklin PharmD Unavailable [phone] Reason for Visit * Reason Onset Date Comments Med Refill 01/30/2023 Encounter Details Date Type Department Care Team ([facility] st Contact Info) Description 01/30/2023 Telephone [facility] 230 [place] [address] Balaji Quinones MD [address] [place] [address] Med Refill Social History Tobacco Use Types [...] 81 MG EC tablet Please sent to [facility] - [place], [place] - 230 [facility] Pt is due on holidays but is requesting if medication could be given before than. documented in this encounter Plan of Treatment Upcoming Encounters Date Type Department Care Team (Late st Contact Info) Description 07/22/2024 1:30 PM EDT Office Visit [facility] MED[facility]INE [address] [place] [address] Balaji Quinones MD [address] [place] [address] 18[address] 09/04/2024 11:00 AM EDT Medication Management [facility] [address] [place] [address] 18[address] Birgit Franklin PharmD [address] [place] [address] 85498 documented as of this encounter Goals Goal [...] 138/82(2024 1:42 PM EDT) No Kristi Giles PharmIavn Follow the DASH diet Diet No Kristi Giles PharmD Note: Look for foods that are low sodium. documented as of this encounter Visit Diagnoses Not on filedocumented in this encounter Care Teams Microbiological Analyst Relationship Specialty Start Date End Date Balaji Quinones MD [address] [place] [address] 9[address]65 PCP - General Internal Medicine 11/25/13 Kristi Giles, SarayD [address] [place] [address] Pharmacist Internal Medicine 01/30/22 06/05/24 Birgit Franklin, SarayD [address] [place] [address] Pharmacist Internal Medicine 06/06/24 documented as of this encounter
--- OUTSIDE RECORDS SUMMARY | 2024-07-01 11:08 | XMS_ITS | Clinical Summary ---
Author Organization [employer] Address [address] [facility] [address] [place] [address] Care Team Providers Care Soup Mixer Name Role Phone Balaji Quinones MD Primary Care Provide r Birgit Franklin PharmD Unavailable [phone] Allergies No known active allergies Medications sertraline [...] stripIndications: Type 2 diabetes mellitus with hyperlipidemia ([facility]/HCC) ([facility]) TEST BLOOD SUGAR ONCE DAILY 100 each 12/28/19 24 Active TRUEplus Lancets 33G miscIndications:T ype 2 diabetes mellitus with hyperlipidemia ([facility]) ([facility]) TEST BLOOD SUGAR ONCE DAILY ICD10= 100 each 12/28/19 24 Active metFORMIN (Glucophage) 1000 MG tabletIndications :Type 2 diabetes mellitus without complication, unspecified whether longwall headgate operator insulin use ([facility]) TAKE 1 TABLET BY MOUTH [...] 2 diabetes mellitus without complication, unspecified whether longwall headgate operator insulin use ([facility]) Take 1 tablet (45 mg) [...] DAILY 454 g 5 04/18/19 25 Active Alcohol Swabs (Alcohol Prep) 70 % pads USE DIRECTED TO TEST BLOOD SUGAR 100 each 11 05/07/19 25 Active glipiZIDE XL (Glucotrol XL) 5 MG 24 hr tabletIndications :Type 2 diabetes mellitus without complication, unspecified whether shelter insulin use ([facility]) TAKE 1 TABLET BY MOUTH EVERY DAY [...] morning. 90 tablet 2 06/24/19 25 Active ketoconazole (NIZOral) 2 % creamIndications: Tinea pedis of both feet APPLY 1 GRAM TOPICALLY TO AFFECTED AREA(S) EVERY DAY IN THE MORNING 30 g 1 06/28/19 25 Active Aspirin Low Dose 81 MG EC tablet TAKE 1 TABLET BY MOUTH EVERY DAY IN THE MORNING 90 tablet 2 10/18/19 24 2024 Discontinued(R eorder (will not trigger notification to Pharmacy)) triamcinolone (Kenalog) 0.025 % creamIndications: Dermatitis of lower extremity APPLY TO THE AFFECTED AREA(S) 1 GRAM TOPICALLY TWICE DAILY 60 g 1 04/18/19 25 2024 Discontinued ketoconazole (NIZOral) 2 % creamIndications: Tinea pedis of both feet APPLY 1 GRAM TOPICALLY TO AFFECTED AREA(S) EVERY MORNING 30 g 1 05/02/19 25 2024 Discontinued Active Problems Problem Noted Date Diagnosed Date 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 His eczsmcvh-pu-tca brought him to [facility]. Denied headache, chest pain, SOB, n/v/d, [...] follow up scheduled with Dr. Peres his wet end helper Seen by Neurology who ordered Brain MRI that showed: No acute brain abnormality. No gross abnormal enhancing lesion. 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 Assessment & Plan (02/14/2024 4:19 PM EST): Pt seen at our [facility] 12/28/[address] Lloyd Puckett After pt was walking on sidewalk, felt sudden dizzy, unable to describe dizziness, and the next thing he remembers is being on the ground with facial injuries, abrasions on knees and left wrist. His flhrkhmm-lw-ngn brought him to [facility]. Denied headache, chest pain, SOB, n/v/d, or recent illness. States has many year h/o similar recurrent episodes of dizziness that he cannot describe, occasionally falls. ECG today shows sinus arrythmia, IVCD, PACs. Pt tells me he already has a follow up scheduled with Dr. Peres his wet end helper Plan: Obtain ECHO, ECG, EEG. CT of [...] has appointment for an ultrasound coming up [facility] care 05/11/2022 Assessment & Plan (05/15/2024 10:56 [...] of 3.9 cm. Pt was referred to [facility] Cardiovascular surgeons. He was seen [...] of 3.9 cm. Pt was referred to [facility] Cardiovascular surgeons. He was seen [...] of 3.9 cm. Pt was referred to [facility] Cardiovascular surgeons. He was seen [...] of 3.9 cm. Pt was referred to [facility] Cardiovascular surgeons. He was seen [...] of 3.9 cm. Pt was referred to [facility] Cardiovascular surgeons. He was seen [...] Encounters Date Type Department Care Team Description 06/29/2024 Refill [facility] [address] [place] [address] Balaji Quinones MD Dry eyes [facility] [address] [place] [address] Balaji Quinones MD Tinea pedis of both feet 06/24/2024 Orders Only [facility] External Provider, [facility] 06/23/2024 Refill [facility] [address] [place] [address] Balaji Quinones MD 06/13/2024 Refill [facility] [address] [place] [address] Balaji Quinones MD Dermatitis of lower extremity 06/09/2024 Telephone [facility] [address] [place] [address] Balaji Quinones MD Results 06/04/2024 Telephone [facility] OPTOMETRY [address] [place] [address] Kaci Meadows, OD 06/03/2024 10:00 AM EDT Clinical Support [facility] [address] [place] [address] Birgit Franklin, Quentin Type 2 diabetes mellitus without complication, without long-term current use of insulin ([facility]/HCC) (Primary Dx); Mixed hyperlipidemia; Primary hypertension 06/03/2024 Travel 05/27/2024 1:00 PM EDT Office Visit [facility] OPTOMET[facility] [address] [place] [address] Kaci Meadows, OD Diabetes type 2, no ocular involvement (CMS/HCC) (Primary Dx); Pseudoexfoliation of lens capsule; Combined forms of age-related cataract of both eyes; Dominant drusen, bilateral; Alternating exotropia; Presbyopia 05/27/2024 Travel 05/15/2024 11:00 AM EDT Office Visit [facility] [address] [place] [address] Balaji Quinones MD Prostate cancer, primary, with metastasis from prostate to other site (CMS/HCC) (Primary Dx); Primary hypertension; Type 2 diabetes mellitus without complication, without long-term current use of insulin (CMS/HCC); Aneurysm of ascending aorta without rupture (CMS/HCC); Syncope, unspecified syncope type; Preventative health care 05/15/2024 Orders Only [facility] [address], [place] [address] Balaji Quinones MD Primary hypertension (Primary Dx) 05/15/2024 Telephone [facility] [address], [place] [address] Balaji Quinones MD 05/15/2024 Telephone [facility] [address] [facility] [place] [address] Balaji Quinones MD PET-CT 05/15/2024 Travel 05/13/2024 Refill [facility] [address] [facility] [place] [address] Balaji Quinones MD 05/11/2024 Refill [facility] [address] [place], [place] [address] Balaji Quinones MD Type 2 diabetes mellitus without complication, unspecified whether longwall headgate operator insulin use ([facility]) 05/06/2024 Patient Outreach [facility] [address], [place] [address] Balaji Quinones MD Pre-visit Planning (Pre-visit planning - LVM ) 05/05/2024 Orders Only GENERIC EXTERNAL DATA DEPARTMENT Provider, Generic External Data 05/04/2024 Telephone [facility] [address] [place], [place] [address] Balaji Quinones MD Med Refill 05/01/2024 Orders Only [facility] [address] [place], [place] [address] Balaji Quinones MD Hypokalemia (Primary Dx) 05/01/2024 Telephone [facility] [place] [address] Balaji Quinones MD Chart Prep 05/01/2024 Telephone [facility] [address] [place] [address] Raquel Kirk, RN Appointment Request 04/30/2024 Refill [facility] [address] [place] [address] Balaji Quinones MD Tinea pedis of both feet 04/28/2024 Orders Only GENERIC EXTERNAL DATA DEPARTMENT Provider, Generic External Data 04/20/2024 Refill [facility] [address] [place] [address] Balaji Quinones MD 04/16/2024 Refill [facility] [address] [place] [address] Balaji Quinones MD Dermatitis of lower extremity 04/15/2024 Telephone [facility] [address] [place] [address] Balaji Quinones MD Results 04/14/2024 Orders Only [facility] [address] [place], [place] [phone] Balaji Quinones MD Mass in neck (Primary Dx) 04/03/2024 Telephone [facility] [address] [place], [place] [phone] Balaji Quinones MD Results from Last 3 [...] 1:30 PM EDT Office Visit [facility] [address] [place] [address] Balaji Quinones MD [address] [place] [address] 09/04/2024 11:00 AM EDT Medication Management [facility] [address] [place] [address] Birgit Franklin, PharmD [address] [place], [place] [phone] Health Maintenance Due Date Last Done Comments [...] Pressure 138/82(2024 1:42 PM EDT) No Kristi Giles, Quentin Note: Maintain BP [...] complication, without long-term current use of insulin (CMS/[facility]) PSA, TOTAL WITH REFLEX TO PSA, FREE [...] EDT Narrative 06/24/2024 11:40 AM EDT ? [facility] ?[address] ?[place] [address] ? Magnetic Resonance Report ? Signed ? Patient: Alonso,Paul ?MR#: [id number] ?? 33 ? : 1955 ?Acct:[id number] ? Age/Sex: 68 / M ?ADM Date: 06/24/24 ? Loc: HO.MRI ? Attending Dr: Lm Rico MD ? Ordering Physician: Lm Rico MD ?? Date of Service: 06/24/24 ?? Procedure(s): MR Prostate wo/w con ?? Accession Number(s): [id number] ? cc: Lm Rico MD; Balaji Sanderson [...] DD/ 0900 ? TD/TT: 06/24/24 0930 ? Site Supervising Technical Operator: ? Procedure Note Donotuseinterpreter, Image - 06/24/[address] [address] Magnetic Resonance Report Signed Patient: Jayda Alonso#: [id number] 33 : 5Acct:[id number] Age/Sex: 68 / MADM Date: 06/24/24 Loc: HO.MRI Attending Dr: Lm Rico MD Ordering Physician: Lm Rico MD Date of Service: 06/24/24 Procedure(s): MR Prostate wo/w con Accession Number(s): [id number] cc: Lm Rico MD; Balaji Sanderson MD [...] 06/24/24 1137 DD/ 09 TD/TT: 06/24/24 0930 Site Supervising Technical Operator: [facility] External Provider IMG MRI PROCEDURES Final [...] (Free>4and<10) 49.69(H ) 0.00 - 4.00 ng/mL [facility] Comment:A Free PSA was not p [...] are between 4.0 and 10.0 ng/mL.PSA methodology: Gigzolo i ChemiluminescentMicroparticle Immunoassay (CMIA) 05/05/2024 9:25 AM EDT 05/05/2024 11:36 AM EDT us Generic External Data Provider LAB BLOOD ORDERAB LES Final Result Performing Organization Address [facility] Co de Phone Number [facility] [address] [place] [address] [phone] * (ABNORMAL) Basic Metabolic Panel (05/05/2024 9:25 AM EDT) Only the most recent of2 resultswithin the time period is included. Sodium 135 135 - 145 mmol/L [facility] Potassium 4.4 3.3 - 5.1 mmol/L [facility] Chloride 101 96 - 108 mmol/L [facility] Carbon Dioxide 30(H) 22 - 29 mmol/L [facility] Anion Gap 8(L) 12 - 20 [facility] Urea Nitrogen (BUN) 4(L) 9 - 16 mg/dL [facility] Creatinine, Serum 0.75 0.5 - 1.4 mg/dL [facility] Estimated Glomerular Filt Rate >60 [facility] Comment:Chronic Kidney Disea se: Estimated GFR < 60 mL/min/1.95q8Dzqfrh Kidney Disease: Estimated GFR < 15 mL/min/1.73m2 Glucose 176(H) 60 - 115 mg/dL [facility] Calcium 8.6 8.4 - 10.2 mg/dL [facility] Blood Venous blood specimen / Unknown 05/05/2024 9:25 AM EDT 05/05/2024 11:36 AM EDT us Balaji Donnelly MD LAB BLOOD ORDERABLES Final Result Performing Organization Address City/[facility]/ZIP Co de Phone Number [facility] [address] [place] [address] [phone] * PSA Stain (04/28/2024 2:20 PM EDT) 04/28/2024 2:20 PM EDT 04/28/2024 2:52 PM EDT [facility] - 05/08/2024 1:35 PM EDT ----- ------- Name: AlonsoPaul miles ? Age/Sex: 68/M ? : 1955 Unit#: [id number] ?? Attend Dr: Ki Castaneda MD ?Re04/28/24 ?Status: DEP SDC ? Location: HO.SSS ?Disch: ? ----- ------- SPEC : [id number] ? RECD: 04/28/24 ? STATUS: ??SOUT ? REQ NUM: [id number] ? REX: 04/28/24-1419 ? SUBM DR: Ki Castaneda MD ? ENTERED: ??03/17/25-1454 ?SP TYPE: Cytology ? OTHR DR: Balaji Sanderson MD ?? ORDERED: ??PSA Stain, Fine Ndl Asp, Cytokeratin, S 100, Synaptophysin, Cyto- enhanced, ?Chromogranin, IHC, Add. immunos/14, Multiplex IHC, CD68, CDX-2, MOC-31, p40, ?PAX-8, PIN4, TTF-1 COMMENTS: Cell Block B sent to [facility] for multiple IHC's on 05/01/24. ? [...] ? Age/Sex: 68/M ? : 1955 Unit#: [id number] ?? Attend Dr: Ki Castaneda MD ?Re04/28/24 ?Status: DEP SDC ? Location: HO.SSS ?Disch: ? ----- ------- SPEC : [id number] ? RECD: 04/28/24-1451 ? STATUS: ??SOUT ? REQ NUM: [id number] ? REX: 04/28/24-5390 ? SUBM DR: Ki Castaneda MD ? ENTERED: ??04/28/24-1454 ?SP TYPE: Cytology ? OTHR DR: Balaji Sanderson MD ?? ORDERED: ??PSA Stain, Fine Ndl Asp, Cytokeratin, S 100, Synaptophysin, Cyto- enhanced, ?Chromogranin, IHC, Add. immunos/14, Multiplex IHC, CD68, CDX-2, MOC-31, p40, ?PAX-8, PIN4, TTF-1 COMMENTS: Cell Block B sent to [facility] for multiple IHC's on 05/01/24. ? Gross Description ?(Continued) the intraoperative diagnosis as follows: 1st pass: ??Few bronchial cells present. 2nd pass: ??Adequate; lesional cells present. AR, 04/28/2024 ([facility]) This case was reviewed intradepartmentally. Special stains ordered and performed: ??Immunostains for synaptophysin, chromogranin, Ki-67, TTF-1, MOC-31, CD20, CD56, CK20, CK7, PAX8, CD68, jolly-cytokeratin, p40, S100, PSA, CDX2, CD117 on cell block B; special stain PAS on cell block. Technical services for CD20, CD56, chromogranin, MOC31, CK20, CK7, CK20, synaptophysin and TTF-1 immunohistochemistry studies performed at [facility] [place]; [facility] #[id number] Copies To: ?? Balaji Sanderson MD ?? [facility] ?? [address] ?? [place] [address] ?? [phone] ?? Ki Castaneda MD ?? [facility] Pulmon[facility] Services ?? [address] ?? [place] [address] ?? [phone] ----- ------- Signed (signature on file) Malini Quach MD 05/08/24 1335 ? ----- ------- ? END OF REPORT ? Generic External Data Provider LAB PATHOLOGY ORD ERABLES Final Result Performing Organization Address [facility] de Phone Number [facility] [address] [place] [phone] * Gram stain (04/28/2024 2:20 PM EDT) 04/28/2024 2:20 PM EDT 04/29/2024 8:42 AM EDT Comment:Bronc Wash Narrative [facility] - 04/29/2024 8:50 AM EDT Test not performed Routine Culture Test not performed Unable to perform culture due to laboratory error. Sample already processed by the pathology department. Specimen Source: Bronchial Washings Generic External Data Provider LAB MICROBIOLOGY - GENERAL ORDERABLES Final Result Performing Organization Address [facility] Co de Phone Number [facility] [address] [place], [place] [phone] * (ABNORMAL) Glucose, Whole Blood (04/28/2024 10:28 AM EDT) Glucose, Whole Blood 166(H) 60 - 115 mg/dL [facility] Comment:METER #: [id number] 04/28/2024 10:2 8 AM EDT 04/28/2024 10:33 AM EDT us Generic External Data Provider LAB BLOOD ORDERAB LES Final Result [facility] [address] [place] [address] [phone] * Mr Brain w/ and w/o Contrast (04/23/2024 10:50 AM EDT) Anatomical Region Laterality Modality Brain Magnetic Resonan ce 04/23/2024 10:5 0 AM EDT Narrative 04/23/2024 12:50 PM EDT ? [facility] ?[address] ?[place] [address] ? Magnetic Resonance Report ? Signed ? Patient: Alonso,Paul ?MR#: [id number] ?? 33 ? : 1955 ?Acct:[id number] ? Age/Sex: 68 / M ?ADM Date: 04/23/24 ? Loc: HO.MRI ? Attending Dr: Jessica Palacios MD ? Ordering Physician: Jessica Palacios MD ?? Date of Service: 04/23/24 ?? Procedure(s): MR head/brain wo/w con ?? Accession Number(s): [id number] ? cc: Balaji Sanderson MD; Jessica Palacios [...] DD/ 1050 ? TD/TT: 04/23/24 1115 ? Site Supervising Technical Operator: ? Procedure Note Courtneyesterjuan, Image - 04/23/2024 [place] [address] Magnetic Resonance Report Signed Patient: Jayda Alonso#: [id number] 33 : 5Acct:[id number] Age/Sex: 68 / MADM Date: 04/23/24 Loc: HO.MRI Attending Dr: Jessica Palacios MD Ordering Physician: Jessica Palacios MD Date of Service: 04/23/24 Procedure(s): MR head/brain wo/w con Accession Number(s): [id number] cc: Blaaji Sanderson MD; Jessica Palacios MD EXAMINATION: MR [...] 04/23/24 1247 DD/ 1050 TD/TT: 04/23/24 1115 Site Supervising Technical Operator: [facility] External Provider IMG MRI PROCEDURES Final Result * Referral to Neurology (04/10/2024) Balaji Donnelly MD OUTPATIENT REFERRAL O RDERABLES Final Result * CTA Chest w/ and w/o Contrast (04/03/2024 12:33 PM EST) Anatomical Region Laterality Modality Body, Chest Computed Tomogra phy 04/03/2024 12:3 3 PM EST Narrative 04/03/2024 12:34 PM EST ? [place] [facility] ?[address] ?[place] [address] ? CT Scan Report ? Signed with Addenda ? Patient: Alonso,Paul ?MR#: [id number] ?? 33 ? : 1955 ?Acct:[id number] ? Age/Sex: 68 / M ?ADM Date: 04/03/24 ? Loc: HO.CT ? Attending Dr: Balaji Sanderson MD ? Ordering Physician: Balaji Sanderson MD ?? Date of Service: 04/03/24 ?? Procedure(s): CT angio chest aorta ?? Accession Number(s): [id number] ? cc: Balaij Sanderson MD ? Report Number: ?? [id number]: Total DLP = ??212.27 mGy-cm ?ADDENDUM ?? [...] DD/ 1233 ? TD/TT: 04/03/24 1233 ? Site Supervising Technical Operator: ? Procedure Note Tawana, Image - 04/04/[address] [place] [address] [address] Scan Report Signed with Loni Patient: Jayda Alonso#: [id number] 33 : 5Acct:[id number] Age/Sex: 68 / MADM Date: 04/03/24 Loc: HO.CT Attending Dr: Balaji Sanderson MD Ordering Physician: Balaji Sanderson MD Date of Service: 04/03/24 Procedure(s): CT angio chest aorta Accession Number(s): [id number] cc: Balaji Sanderson MD Report Number: [id number]: Total DLP = 212.27 mGy-cm ADDENDUM This [...] 04/03/24 1234 DD/ 1233 TD/TT: 04/03/24 1233 Site Supervising Technical Operator: us Balaji Donnelly MD IMG CT PROCEDURES Jaspal tennille Result - Final * CT Head w/o Contrast (04/03/2024 10:11 AM EST) Anatomical Region Laterality Modality Head, Neck Computed Tomogra phy 04/03/2024 10:1 1 AM EST Narrative 04/03/2024 10:12 AM EST ? [facility] ?[address] ?[place] [address] ? CT Scan Report ? Signed ? Patient: Alonso,Paul ?MR#: [id number] ?? 33 ? : 1955 ?Acct:[id number] ? Age/Sex: 68 / M ?ADM Date: 04/03/24 ? Loc: HO.CT ? Attending Dr: Balaji Sanderson MD ? Ordering Physician: Balaji Sanderson MD ?? Date of Service: 04/03/24 ?? Procedure(s): CT head/brain wo IV con ?? Accession Number(s): [id number] ? cc: Balaji Sanderson MD ? Report Number: ?? [id number]: Total DLP = ??672.66 mGy-cm ? CLINICAL HISTORY: syncope ? CT head without contrast ? Comparison: None ? Findings: ?? No intra-axial mass, midline shift, hydrocephalus, or acute hemorrhage. ?? Oyly-vo-fxbvzfcn age-related cerebral hemispheric white matter changes. ?? [...] on ?? 04/03/2024 10:11:03 ? Dictated By: ?Kani,Neelam MD ? Signed By: ?<Electronically signed by Neelam Acevedo MD in OV> ? 04/03/24 1012 ? DD/ 1011 ? TD/TT: 04/03/24 1011 ? Site Supervising Technical Operator: ? Procedure Note Xenia Gilliam - 04/03/[address] [address] [address] Scan Report Signed Patient: Jayda Alonso#: [id number] 33 : 5Acct:[id number] Age/Sex: 68 / MADM Date: 04/03/24 Loc: HO.CT Attending Dr: Balaji Sanderson MD Ordering Physician: Balaji Sanderson MD Date of Service: 04/03/24 Procedure(s): CT head/brain wo IV con Accession Number(s): [id number] cc: Balaji Sanderson MD Report Number: [id number]: Total DLP = 672.66 mGy-cm CLINICAL HISTORY: syncope CT head without contrast Comparison: None Findings: No intra-axial mass, midline shift, hydrocephalus, or acute hemorrhage. Pzkf-og-ggtzxdlq age-related cerebral hemispheric white matter changes. Small [...] 04/03/24 1012 DD/ 1011 TD/TT: 04/03/24 1011 Site Supervising Technical Operator: Balaji Donnelly MD IMG CT PROCEDURES Fin al Result * (ABNORMAL) POCT HGB A1C (02/14/2024 11:31 AM EST) Hemoglobin A1C 6.6(A) 4.0 - 6.0 % QC Media Lot # [id number] Lot# Expiration Date ,860,008 Blood 02/14/2024 11:3 1 AM EST Balaji [...] to 5OO mg/dL Cholesterol 127 <200 mg/dL [facility] Comment:Desirable Cholestero l: less than 200 mg/dLBorderline High Cholesterol: 200-239 mg/dLHigh Cholesterol: greater than 239 mg/dL LDL Cholesterol Calculated 66 <100 mg/dL [facility] Comment:Desirable LDL: less than 100 mg/dLNear Optimal/Above Optimal LDL: 110- 129 mg/dLBorderline High LDL: 130-159 mg/dLHigh LDL: 160-189 mg/dLVery High LDL: greater than or equal to 190 mg/dL HDL Cholesterol 30(L) >40 mg/dL [facility] Comment:Desirable HDL: great er than 40 mg/dL Note: This HDL assay may give artificially low results in patients with liver disease. Blood 06/19/2023 1:23 PM EDT 06/19/2023 4:12 PM EDT Balaji Donnelly MD LAB BLOOD ORDERABLES Final Result Performing Organization Address City/State/[facility] Co de Phone Number [facility] [address] [place] [address] [phone] * Albumin, Random Urine W/Creatinine (06/19/2023 12:00 AM EDT) Creatinine, Urine 137.18 mg/dL [facility] Microalbumin Urine 21.0 mg/L [facility] Microalbum Creatinine Ratio Ur 15.3 <30 ug/mg cr [facility] Comment:Albumin/Creatinine R atio Reference Ranges: Normal: < 30 ug/mg creatinine Microalbuminuria: 30 - 300 ug/mg creatinineClinical Albuminuria: > 300 ug/mg creatinine Urine (Urine, Random) 06/19/2023 06/19/2023 Balaji Donnelly MD LAB URINE ORDERABLES Final Result [facility] [address] [place] [address] [phone] * Hepatitis C Antibody with Reflex to HCV, RNA, Quantitative, Real-Time PCR (07/05/2022 8:13 AM EDT) Hepatitis C Antibody NON-REACT MADDY NON-REACT MADDY [place] [employer] Index 0.04 <1.00 [employer] [place] [employer] Comment: HCV antibody was non-reactive. There is no laboratory evidence of HCV infection. In most cases, no further action is required. However, if recent HCV exposure is suspected, a test for HCV RNA (test code 44738) is suggested. For additional information please refer to http://education.[employer]faq/TXQ94b1 (This link is being provided for informational/ educational purposes only.) Blood Venous blood specimen / Unknown 07/05/2022 8:13 AM EDT 07/05/2022 8:14 AM EDT Narrative [facility] 07/06/2022 11:54 AM EDT FASTING:YES FASTING: YES Balaji Donnelly MD LAB BLOOD ORDERABLES Final Result Performing Organization Address City/[facility]/ZIP Co de Phone Number [facility] [address], [place] [address] [employer] [place] [employer] [address] [place] [address] * Colonoscopy (07/10/2017) Colonoscopy Normal Normal 07/10/2017 Shikha Morel - 07/10/2017 3:47 PM EDT Recommended 10 year follow up ( [facility] ) us Historical Provider HEALTH MAINTENANCE Final Result from Last 3 Months or Most Recently Relevant to Health Maintenance Insurance [facility] STANDARD [place] [phone] Care Teams Soup Mixer Relationship Specialty Start Date End Date Balaji Quinones MD [address] [place], [place] PCP - General Internal Medicine 11/25/13 Birgit Franklin PharmD [address] [place], [place] Pharmacist Internal Medicine 06/06/24
--- OUTSIDE RECORDS SUMMARY | 2024-07-01 11:08 | XMS_ITS | Encounter Summary ---
Author Organization [employer] Address 75 [facility] 7t [place] [address] Care Team Providers Care Digital Production Artist Name Role Phone Balaji Quinones MD Primary Care Provide r Birgit Franklin PharmD Unavailable [phone] Reason for Visit * Reason Comments Med Refill Encounter Details Date Type Department Care Team ([facility] st Contact Info) Description 06/29/2024 Refill [facility] MEDICINE 230 [place], [place] [phone] Balaji Quinones MD [address] [place], [place] [phone] Dry eyes Social History Tobacco Use Types [...] Upcoming Encounters Date Type Department Care Team ([facility] st Contact Info) Description 07/22/2024 1:30 PM EDT Office Visit [facility] MEDICINE [address] [place] [address] Balaji Quinones MD [address] [place] [address] 09/04/2024 11:00 AM EDT Medication Management [facility] MEDICINE [address] [place] [address] Birgit Franklin PharmD [address] [place] [address] documented as of this encounter Goals Goal [...] as of this encounter Care Teams Digital Production Artist Relationship Specialty Start Date End Date Balaji Quinones MD [address] [place] [address] PCP - General Internal Medicine 11/25/13 Birgit Franklin PharmD [address] [place] [address] Pharmacist Internal Medicine 06/06/24 documented as of this encounter
--- OUTSIDE RECORDS SUMMARY | 2024-07-01 11:08 | XMS_ITS | Encounter Summary ---
Author Organization [employer] Address 75 [facility] 7t [place] [address] Care Team Providers Care Crystallizer Operator Name Role Phone Balaji Quinones MD Primary Care Provide r Kristi Giles PharmD Unavailable [phone] Birgit Franklin PharmD Unavailable [phone] Reason for Visit * Reason Comments Med Refill Encounter Details Date Type Department Care Team (Late st Contact Info) Description 04/19/2023 Refill [facility] MEDICINE 230 [place] [address] Balaji Quinones MD 230 [place] [address] Primary hypertension; Folliculitis Social History Tobacco Use [...] Description 07/22/2024 1:30 PM EDT Office Visit [facility] MEDICINE [address] [place] [address] Balaji Quinones MD [address] [place] [address] 09/04/2024 11:00 AM EDT Medication Management [facility] MEDICINE [address] [place] [address] Birgit Franklin PharmD [address] [place] [address] documented as of this encounter Goals Goal [...] documented as of this encounter Care Teams Crystallizer Operator Relationship Specialty Start Date End Date Balaji Quinones MD 230 [place] [address] PCP - General Internal Medicine 11/25/13 Kristi Giles PharmD 230 [place] [address] Pharmacist Internal Medicine 01/30/22 06/05/24 Birgit Franklin PharmD [address] [place] [address] Pharmacist Internal Medicine 06/06/24 documented as of this encounter
--- OUTSIDE RECORDS SUMMARY | 2024-07-01 11:08 | XMS_ITS | Encounter Summary ---
Author Organization [employer] Address 75 [facility] 7t [place] [address] Care Team Providers Care Wire Mesh Gate Assembler Name Role Phone Balaji Quinones MD Primary Care Provide r Kristi Giles PharmD Unavailable [phone] Birgit Franklin PharmD Unavailable [phone] Reason for Visit * Reason Comments Med Refill Encounter Details Date Type Department Care Team (Late st Contact Info) Description 03/08/2023 Refill [facility] [address] [place] [address] Balaji Quinones MD [address] [place] [address] [phone] Folliculitis Social History Tobacco Use Types Packs/Day [...] [facility] MED[facility] [address] [place] [address] [phone] Balaji Quinones MD [address] [place] [address] [phone] 09/04/2024 11:00 AM EDT Medication Management [facility] MED[facility]INE 230 [place] [address] Birgit Franklin PharmD 230 [place] [address] documented as of this encounter Goals Goal [...] follicles documented in this encounter Care Teams Wire Mesh Gate Assembler Relationship Specialty Start Date End Date Balaji Quinones MD [address] [place] [address] PCP - General Internal Medicine 11/25/13 Kristi Giles PharmD [address] [place] [address] Pharmacist Internal Medicine 01/30/22 06/05/24 Birgit [place] [address] Pharmacist Internal Medicine 06/06/24 documented as of this encounter
--- OUTSIDE RECORDS SUMMARY | 2024-07-01 11:08 | XMS_ITS | Encounter Summary ---
Author Organization [employer] Address 75 [facility] 7t [place] [address] Care Team Providers Care Embedded Hardware Engineer Name Role Phone Balaji Quinones MD Primary Care Provide r Kristi Giles PharmD Unavailable [phone] Birgit Franklin PharmD Unavailable [phone] Reason for Visit * Reason Comments Med Refill Encounter Details Date Type Department Care Team (Late Contact Info) Description 05/11/[address] [facility] 230 [place] [address] Balaji Quinones MD 230 [place], [place] [phone] Swelling of right middle finger Social History [...] [facility] 230 [place] [address] Balaji Quinones MD 230 [facility] [place] [address] 09/04/2024 11:00 AM EDT Medication Management [facility] MEDICINE [address] [facility] [place] [address] Birgit Franklin PharmD [address] [place], [place] documented as of this encounter Goals [...] finger documented in this encounter Care Teams Embedded Hardware Engineer Relationship Specialty Start Date End Date Balaji [place]ones [place] [address] PCP - General Internal Medicine 11/25/13 Kristi [place]iles [place] [address] Pharmacist Internal Medicine 01/30/22 06/05/24 Birgit Franklin PharmD [address] [facility] [place] [address] Pharmacist Internal Medicine 06/06/24 documented as of this encounter
--- OUTSIDE RECORDS SUMMARY | 2024-07-01 11:08 | XMS_ITS | Encounter Summary ---
Author Organization [employer] Address 75 [facility] 7t [place] [address] Care Team Providers Care Purchasing Department Clerk Name Role Phone Balaji Quinones MD Primary Care Provide r Kristi Giles PharmD Unavailable [phone] Birgit Franklin PharmD Unavailable [phone] Reason for Visit * Reason Comments Med Refill Encounter Details Date Type Department Care Team (Late st Contact Info) Description 03/01/2023 Refill [facility] MEDICINE [address] [place] [address] Balaji Quinones MD [address] [place] [address] [phone] Type 2 diabetes mellitus without complication, unspecified whether assisted insulin use ([facility]) Social History Tobacco Use Types [...] 1:30 PM EDT Office Visit [facility] MEDICINE 230 [place], [place] [phone] Balaji Quinones MD [address] [place] [address] [phone] 09/04/2024 11:00 AM EDT Medication Management [facility] MED[facility]INE 230 [place] [address] Birgit Franklin PharmD 230 [place] [address] documented as of this encounter Goals Goal [...] without complication, unspecified whether assisted insulin use ([facility]) documented in this encounter Care Teams Purchasing Department Clerk Relationship Specialty Start Date End Date Balaji Quinones MD [address] [place] [address] PCP - General Internal Medicine 11/25/13 Kristi Giles PharmD [address] [place] [address] Pharmacist Internal Medicine 01/30/22 06/05/24 Birgit Franklin PharmD [address] [place] [address] Pharmacist Internal Medicine 06/06/24 documented as of this encounter
--- OUTSIDE RECORDS SUMMARY | 2024-07-01 11:08 | XMS_ITS | Encounter Summary ---
Author Organization [employer] Address 75 [facility] 7t [place] [address] Care Team Providers Care Fusing Line Inspector Name Role Phone Balaji Quinones MD Primary Care Provide r Kristi Giles PharmD Unavailable [phone] Birgit Franklin PharmD Unavailable [phone] Reason for Visit * Reason Comments Med Refill Encounter Details Date Type Department Care Team (Late st Contact Info) Description 09/17/2022 Refill [facility] [address] [place] [phone] Balaji Quinones MD 230 [place] [address] Dry eyes Social History Tobacco Use Types [...] Description 07/22/2024 1:30 PM EDT Office Visit [facility] MEDICINE [address] [place] [address] [phone] Balaji Quinones MD [address] [place] [address] 09/04/2024 11:00 AM EDT Medication Management [facility] MEDICINE [address] [place] [phone] Birgit Franklin PharmD 230 [place] [address] documented as of this encounter Goals Goal [...] insufficiency documented in this encounter Care Teams Fusing Line Inspector Relationship Specialty Start Date End Date Balaji Quinones MD [address] [place] [address] PCP - General Internal Medicine 11/25/13 Kristi Giles PharmD [address] [place] [address] Pharmacist Internal Medicine 01/30/22 06/05/24 Birgit Franklin PharmD [address] [place] [address] Pharmacist Internal Medicine 06/06/24 documented as of this encounter
--- OUTSIDE RECORDS SUMMARY | 2024-07-01 11:08 | XMS_ITS | Encounter Summary ---
Author Organization [employer] Address 75 [facility] 7t [place] [address] Care Team Providers Care Production Generalist Name Role Phone Balaji Quinones MD Primary Care Provide r Kristi Giles PharmD Unavailable [phone] Birgit Franklin PharmD Unavailable [phone] Reason for Visit * Reason Onset Date Comments Durable Medical Equipment 01/30/2023 Encounter Details Date Type Department Care Team (Late st Contact Info) Description 01/30/2023 Telephone [facility] MEDICINE 230 [place] [address] Balaji Quinones MD 230 [place] [address] Durable Medical Equipment Social History Tobacco Use [...] and taking falls. Please contact pt @ [phone] Icelandic Speaker documented in this encounter Plan of Treatment Upcoming Encounters Date Type Department Care Team (Late st Contact Info) Description 07/22/2024 1:30 PM EDT Office Visit [facility] MEDICINE 230 [place] [address] Balaji Quinones MD 230 [place] [address] 09/04/2024 11:00 AM EDT Medication Management [facility] MEDICINE [address] [place] [address] Birgit Franklin PharmD 230 [place] [address] documented as of this encounter Goals Goal [...] on filedocumented in this encounter Care Teams Production Generalist Relationship Specialty Start Date End Date Balaji Quinones MD [address] [place] [address] PCP - General Internal Medicine 11/25/13 Kristi Giles PharmD [address] [place] [address] Pharmacist Internal Medicine 01/30/22 06/05/24 Birgit Franklin PharmD [address] [place] [address] Pharmacist Internal Medicine 06/06/24 documented as of this encounter
--- OUTSIDE RECORDS SUMMARY | 2024-07-01 11:08 | XMS_ITS | Encounter Summary ---
Author Organization [employer] Address 75 [facility] 7t [place] [address] Care Team Providers Care Roll Sheeting Cutter Name Role Phone Balaji Quinones MD Primary Care Provide r Kristi Giles PharmD Unavailable [phone] Birgit Franklin PharmD Unavailable [phone] Reason for Visit * Reason Comments Med Refill Encounter Details Date Type Department Care Team ([facility] Contact Info) Description 04/17/2022 Refill [facility] MEDICINE 230 [place] [address] Brook Guerrero MD [address] [place] [address] [phone] Other chronic pain Social History Tobacco Use [...] Upcoming Encounters Date Type Department Care Team ([facility] Contact Info) Description 07/22/2024 1:30 PM EDT Office Visit [facility] MEDICINE [address] [place] [address] Balaji Quinones MD 230 [place] [address] 09/04/2024 11:00 AM EDT Medication Management [facility] MEDICINE 230 [place], [place] [phone] Birgit Franklin PharmD [address] [place], [place] documented as of this encounter Goals [...] pain documented in this encounter Care Teams Roll Sheeting Cutter Relationship Specialty Start Date End Date Balaji Quinones MD [address] [place], [place] PCP - General Internal Medicine 11/25/13 Kristi Giles PharmD [address] [place] [address] Pharmacist Internal Medicine 01/30/22 06/05/24 Birgit Franklin PharmD [address] [place], [place] Pharmacist Internal Medicine 06/06/24 documented as of this encounter
--- OUTSIDE RECORDS SUMMARY | 2024-07-01 11:08 | XMS_ITS | Encounter Summary ---
Author Organization [employer] Address 75 [facility] 7t [place] [address] Care Team Providers Care Switchboard Wire Worker Helper Name Role Phone Balaji Quinones MD Primary Care Provide r Kristi Giles PharmD Unavailable +[phone] Birgit Franklin PharmD Unavailable [phone] Encounter Details Date Type Department Care Team (Late st Contact Info) Description 09/08/2022 [facility] Health Information Management 230 [place] [address] Balaji Quinones MD 230 [place], [place] [phone] Social History Tobacco Use Types Packs/Day Years [...] 1:30 PM EDT Office Visit [facility] MEDICINE [address] [place] [address] [phone] Balaji Quinones MD 230 [place], [place] [phone] 09/04/2024 11:00 AM EDT Medication Management [facility] MEDICINE 230 [place], [place] [phone] Birgit Franklin PharmD 230 [place] [address] documented as of this encounter Goals Goal [...] on filedocumented in this encounter Care Teams Switchboard Wire Worker Helper Relationship Specialty Start Date End Date Balaji Quinones MD 230 [place] [address] PCP - General Internal Medicine 11/25/13 Kristi Giles PharmD [address] [place] [address] Pharmacist Internal Medicine 01/30/22 06/05/24 Birgit Franklin PharmD [address] [place] [address] Pharmacist Internal Medicine 06/06/24 documented as of this encounter
--- OUTSIDE RECORDS SUMMARY | 2024-07-01 11:08 | XMS_ITS | Encounter Summary ---
Author Organization [employer] Address 75 [facility] 7t [place] [address] Care Team Providers Care Title Clerk Name Role Phone Balaji Quinones MD Primary Care Provide r Kristi Giles PharmD Unavailable [phone] Birgit Franklin PharmD Unavailable [phone] Encounter Details Date Type Department Care Team ([facility] Contact Info) Description 06/22/2022 Abstract [facility] [address] [place] [address] Balaji Quinones MD 230 [place], [place] [phone] Social History Tobacco Use Types Packs/Day Years [...] Description 07/22/2024 1:30 PM EDT Office Visit [facility] [address] [place] [address] Balaji Quinones MD 230 [place], [place] [phone] 09/04/2024 11:00 AM EDT Medication Management [facility] 230 [place] [address] Birgit Franklin PharmD 230 [place] [address] documented as of this encounter Goals Goal [...] EDT Recommended 10 year follow up ( [facility] ) us Historical Provider HEALTH MAINTENANCE Final Result documented in this encounter Visit Diagnoses Not on filedocumented in this encounter Care Teams Title Clerk Relationship Specialty Start Date End Date Balaji Quinones MD 230 [place] [address] PCP - General Internal Medicine 11/25/13 Kristi Giles PharmD 230 [place] [address] Pharmacist Internal Medicine 01/30/22 06/05/24 Birgit Franklin, PharmD 230 [place] [address] Pharmacist Internal Medicine 06/06/24 documented as of this encounter
--- OUTSIDE RECORDS SUMMARY | 2024-07-01 11:08 | XMS_ITS | Encounter Summary ---
Author Organization [employer] Address 75 [facility] 7t [place] [address] Care Team Providers Care Photographic Engineer Name Role Phone Balaji Quinones MD Primary Care Provide r Kristi Giles PharmD Unavailable [phone] Birgit Franklin PharmD Unavailable [phone] Reason for Visit * Reason Comments Med Refill Encounter Details Date Type Department Care Team (Late st Contact Info) Description 01/30/2023 Refill [facility] [address] [place] [phone] Balaji Quinones MD 230 [place], [place] [phone] Social History Tobacco Use Types Packs/Day Years [...] Description 07/22/2024 1:30 PM EDT Office Visit [facility] MEDICINE [address] [place] [address] [phone] Balaji Quinones MD [address] [place] [address] 09/04/2024 11:00 AM EDT Medication Management [facility] MED[facility]INE [address] [place] [address] Birgit Franklin PharmD 230 [place] [address] documented as of this encounter Goals Goal [...] on filedocumented in this encounter Care Teams Photographic Engineer Relationship Specialty Start Date End Date Balaji Quinones MD [address] [place] [address] PCP - General Internal Medicine 11/25/13 Kristi Giles PharmD [address] [place] [address] Pharmacist Internal Medicine 01/30/22 06/05/24 Birgit Franklin PharmD [address] [place] [address] Pharmacist Internal Medicine 06/06/24 documented as of this encounter
--- OUTSIDE RECORDS SUMMARY | 2024-07-01 11:08 | XMS_ITS | Encounter Summary ---
Author Organization [employer] Address 75 [facility] 7t [place] [address] Care Team Providers Care Airplane Mechanic Name Role Phone Balaji Quinones MD Primary Care Provide r Kristi Giles PharmD Unavailable [phone] Birgit Franklin PharmD Unavailable [phone] Reason for Visit * Reason Comments Med Refill Encounter Details Date Type Department Care Team (Late Contact Info) Description 10/27/2022 Refill [facility] MEDICINE [address] [place] [phone] Balaji Quinones MD [address] [place] [phone] Dermatitis of lower extremity Social History Tobacco [...] Office Visit [facility] MEDICINE [address] [place] [address] [phone] Balaji Quinones MD [address] [place] [address] 09/04/2024 11:00 AM EDT Medication Management [facility] MEDICINE 230 [place] [address] Birgit Franklin PharmD 230 [place] [address] documented as of this encounter Goals Goal [...] extremity documented in this encounter Care Teams Airplane Mechanic Relationship Specialty Start Date End Date Balaji Quinones MD [address] [place] [address] PCP - General Internal Medicine 11/25/13 Kristi Giles PharmD [address] [place] [address] Pharmacist Internal Medicine 01/30/22 06/05/24 Birgit Franklin PharmD [address] [place] [address] Pharmacist Internal Medicine 06/06/24 documented as of this encounter
--- OUTSIDE RECORDS SUMMARY | 2024-07-01 11:08 | XMS_ITS | Encounter Summary ---
Author Organization [employer] Address 75 [facility] 7t [place] [address] Care Team Providers Care High School Librarian Name Role Phone Balaji Quinones MD Primary Care Provide r Kristi Giles PharmD Unavailable [phone] Birgit Franklin PharmD Unavailable [phone] Reason for Visit * Reason Comments Med Refill Encounter Details Date Type Department Care Team ([facility] st Contact Info) Description 12/24/2023 Refill [facility] 230 [place] [address] Balaji Quinones MD 230 [place] [address] Folliculitis Social History Tobacco Use Types Packs/Day [...] Description 07/22/2024 1:30 PM EDT Office Visit [facility] MEDICINE [address] [place] [address] Balaji Quinones MD [address] [place] [address] 09/04/2024 11:00 AM EDT Medication Management [facility] MEDICINE [address] [place] [phone] Birgit Franklin PharmD [address] [place] [address] documented as of this encounter Goals Goal [...] documented as of this encounter Care Teams High School Librarian Relationship Specialty Start Date End Date Balaji Quinones MD [address] [place] [address] PCP - General Internal Medicine 11/25/13 Kristi Giles, Quentin [address] [place] [address] Pharmacist Internal Medicine 01/30/22 06/05/24 Birgit Franklin PharmD [address] [place] [address] Pharmacist Internal Medicine 06/06/24 documented as of this encounter
--- OUTSIDE RECORDS SUMMARY | 2024-07-01 11:08 | XMS_ITS | Encounter Summary ---
Author Organization [employer] Address 75 [facility] 7t [place] [address] Care Team Providers Care Apprenticeship Training Representative Name Role Phone Balaji Quinones MD Primary Care Provide r Kristi Giles PharmD Unavailable [phone] Birgit Franklin PharmD Unavailable [phone] Reason for Visit * Reason Comments Med Refill Encounter Details Date Type Department Care Team (Late st Contact Info) Description 12/30/2022 Refill [facility] [address] [place] [address] Balaji Quinones MD 230 [place], [place] [phone] Tinea pedis of both feet Social History [...] EDT Office Visit [facility] MED[facility]INE [address] [place] [address] [phone] Balaji Quinones MD [address] [place] [address] [phone] 09/04/2024 11:00 AM EDT Medication Management [facility] 230 [place] [address] Birgit Franklin PharmD 230 [place], [place] documented as of this encounter Goals [...] feet documented in this encounter Care Teams Apprenticeship Training Representative Relationship Specialty Start Date End Date Balaji Quinones MD [address] [place], [place] PCP - General Internal Medicine 11/25/13 Kristi Giles PharmD [address] [place], [place] Pharmacist Internal Medicine 01/30/22 06/05/24 Birgit Franklin PharmD [address] [place], [place] Pharmacist Internal Medicine 06/06/24 documented as of this encounter
== END 2024-07-01 11:30 | disposition home or self-care (01) ==
LOC: HO.HUSH 09:58
PROVIDERS: PCP Internal Medicine; Visit Provider Urology
DX: C61 Malignant neoplasm of prostate (principal); C77.1 Secondary and unspecified malignant neoplasm of intrathoracic lymph nodes; C77.5 Secondary and unspecified malignant neoplasm of intrapelvic lymph nodes
CPT/HCPCS: 99214; G2211

== ENCOUNTER → 2024-07-01 09:58 | Outpatient (BNVA) | payer MEDICARE, MEDICAID, SELFPAY | PROVIDERS: PCP Internal Medicine; Visit Provider Urology | DX: C61 Malignant neoplasm of prostate (principal); C77.1 Secondary and unspecified malignant neoplasm of intrathoracic lymph nodes; C77.5 Secondary and unspecified malignant neoplasm of intrapelvic lymph nodes; N04.1 Nephrotic syndrome with focal and segmental glomerular lesions; N13.8 Other obstructive and reflux uropathy; M85.80 Other specified disorders of bone density and structure, unspecified site; R33.8 Other retention of urine; R97.20 Elevated prostate specific antigen [PSA]; E11.9 Type 2 diabetes mellitus without complications | CPT/HCPCS: 99212 ==

== ENCOUNTER 2024-09-01 14:08 | Outpatient (AMB) | payer MEDICARE, MEDICAID, SELFPAY ==
--- NOTE | 2024-09-01 14:18 | A.OFFVIS_ITS ---
Vital Signs 09/01/24 14:19 Height 5 ft 3 in Weight 116 lb 13.52 oz BMI 20.7 BP 116/62 Blood Pressure Location Lt brachial Position Sitting Pulse 66 Pulse Source Pulse Oximeter Pulse Oximetry (%) 97 Oxygen Delivery Method Room Air Intake Visit Reasons: Lymphadenopathy Accompanied by: Self / Same As Patient Allergies No Known Allergies Allergy (Verified 09/01/24 14:22) HPI Comments Details: The patient is a 69-year-old gentleman who presents with an abnormal CT scan of the chest. Apparently he was in usual state health until he had a CT of the chest angiogram to assess his aorta. It came back abnormal with significant mediastinal lymphadenopathy and referred to Pulmonary. I did visualize his CT scan from 2022 and also from 05/01/2024. It actually demonstrates that he has a 3.5 cm masslike density in the area of the paratracheal lymph node. No other significant lymphadenopathy noted. No parenchymal disease. The patient is a lifelong nonsmoker. Denies any decreased appetite. He has had some weight loss however. He has gone up and down. Denies any night sweats. Denies any rashes. Did have blood work done his sedimentation rate was only 7 which is reassuring. However, based on the size of the normal paratracheal lymph node masslike density a biopsy is warranted. I did talk about a endobronchial ultrasound bronchoscopy with transbronchial needle aspirations will be the best approach. He is agreeable to this and will make arrangements to do soon as possible. 05/08/2024 the patient is here for a pulmonary follow-up visit. He is status post EBUS. He tolerated procedure well. Denying any complications or symptoms afterwards. He denies any shortness of breath. Overall he is pretty asymptomatic. Except that he has is masslike density in the area of the 4R distribution. Initially thought to be carcinoid on the preliminary results. However, now the results are consistent with metastatic prostate cancer. Indeed his PSA has been elevated he has been following closely with urology. I did reach out to urology to let him know the results and they will be calling the patient for an earlier appointment. As it is already an MRI was order for him to assess an elevated PSA. The patient is understanding the results. He understands that once he is evaluated by Urology day he will start potentially some treatment to shrink the cancer. Patient will follow-up in 4 months with me. Will do a CAT scan prior to that visit to assess the response to therapy. 09/01/2024 the patient is here for a pulmonary follow-up visit. Overall he is doing well. The patient this started his therapy for his prostate cancer. Denies any adverse effects from the therapy. He is tolerating it well. The patient denies any shortness of breath or chest discomfort. He does have a scheduled CAT scan for this week. To assess the mediastinal masslike density that he has that ended up being positive for prostate cancer. Will will review the images when available. Meantime he is going to continue with his prostate therapy that is getting serology. No need for inhalers at this time. Will follow-up in 4 months. If he has any issues prior to this he will call for an earlier assessment. PENDING SALE TO [facility] Medical History Lymphadenopathy, mediastinal Thoracic aortic aneurysm (TAA) Depression Hyperlipemia HTN (hypertension) Diabetes Anemia Surgical History Hx of prostate biopsy Hx of umbilical hernia repair H/O colonoscopy Family History Sister Breast cancer Social History Household Members: None Housing: Apartment Are you a primary respiratory care faculty to a significant other at home: No Do you presently have visiting nurse or other home services: No Alcohol intake: former Patient Tobacco Use Status: Never used Tobacco service: No Current occupational status: disabled Review of Systems Const Denies fatigue, Denies fever(s) and Reports weight loss Eyes Reports no additional complaints ENT Reports no additional complaints Card Denies chest pain Resp Reports no additional complaints GI Denies abdominal pain Musc Reports no additional complaints Skin/Breast Denies rash Neuro Reports no additional complaints Endo Denies fatigue Kofi/Lymph Reports no additional complaints Aller/Immun Reports no additional complaints Physical Exam Vital Signs: Last Vital Signs Pulse 66 09/01/24 14:19 BP 116/62 09/01/24 14:19 Pulse Ox 97 09/01/24 14:19 Oxygen Delivery Method Room Air 09/01/24 14:19 BMI result Body Mass Index 20.7 Const General: comfortable HEENT Head: Yes normocephalic Neck Neck: Yes supple Chest Chest palpation & inspection: normal inspection of the chest Resp Effort & Inspection: normal respiratory effort Auscultation: diminished lung sounds Cardio Heart sounds: S1 normal heart sound present and S2 normal heart sound present GI Palpation (GI): Soft to palpation Skin General skin exam: no rashes or lesions noted Extrem General: Yes no clubbing, cyanosis or edema Assessment & Plan Assessment & Plan (1) Lymphadenopathy, mediastinal: Code(s): R59.0 - Localized enlarged lymph nodes Category: Medical (2) 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
[2024-09-01 14:19] VITALS: BP 116/62; PULSE 66; O2SAT 97; BMI 20.7
--- OUTSIDE RECORDS SUMMARY | 2024-09-01 15:00 | XMS_ITS | Encounter Summary ---
Author Organization [employer] Address [address] [facility] [address] [place] [address] Care Team Providers Care Shopper Insights Manager Name Role Phone Balaji Quinones MD Primary Care Provide r Kristi Giles PharmD Unavailable +- Birgit Franklin PharmD Unavailable [phone] Encounter Details Date Type Department Care Team (Late st Contact Info) Description 01/28/2022 Abstract [facility] [address] [place] [phone] Kristi Giles PharmD [address] [place] [address] Social History Tobacco Use Types Packs/Day Years [...] Care Team (Late st Contact Info) Description 09/04/2024 11:00 AM EDT Medication Management [facility] [address] [place] [phone] Birgit Franklin PharmD [address] [place] [address] 10/21/2024 2:15 PM EDT Office Visit [facility] [address] [place] [address] Balaji Quinones MD [address] [place] [address] documented as of this encounter Goals Goal Patient Goal Type Associated Problems Recent Progress Patient-Stated? Author Blood Pressure < 140/90 Blood Pressure 142/80(2024 1:14 PM EDT) No Kristi Giles PharmD Note: Maintain BP less than 140/90 Record your blood pressure once per day Blood Pressure No Kristi Giles PharmD Note: Check BP daily Follow the DASH diet Diet No Kristi Giles PharmD Note: Look for foods that are low sodium. documented as of this encounter Visit Diagnoses Not on filedocumented in this encounter Care Teams Shopper Insights Manager Relationship Specialty Start Date End Date Balaji Quinones MD [address] [place] [phone] PCP - General Internal Medicine 11/25/13 Kristi Giles PharmD [address] [place] [phone] Pharmacist Internal Medicine 01/30/22 06/05/24 Birgit Franklin PharmD [address] [place] [address] [phone] Pharmacist Internal Medicine 06/06/24 documented as of this encounter
== END 2024-09-01 14:48 | disposition home or self-care (01) ==
LOC: HO.HPS 14:09
PROVIDERS: PCP Internal Medicine; Visit Provider Hospitalist
DX: R59.0 Localized enlarged lymph nodes (principal); C61 Malignant neoplasm of prostate; C77.1 Secondary and unspecified malignant neoplasm of intrathoracic lymph nodes
CPT/HCPCS: 99214; G2211

== ENCOUNTER → 2024-09-01 14:08 | Outpatient (BNVA) | payer MEDICARE, MEDICAID, SELFPAY | PROVIDERS: PCP Internal Medicine; Visit Provider Hospitalist | DX: R59.0 Localized enlarged lymph nodes (principal); C61 Malignant neoplasm of prostate; C77.1 Secondary and unspecified malignant neoplasm of intrathoracic lymph nodes | CPT/HCPCS: 99212 ==

== ENCOUNTER 2024-09-04 08:57 | Outpatient (REF) | payer MEDICARE, MEDICAID, SELFPAY ==
--- NOTE | ~2024-09-04 | CT_ITS ---
EXAMINATION: CT CHEST WITHOUT IV CONTRAST INDICATION: R59.0 - Localized enlarged lymph nodes COMPARISON: Comparison is made with the prior examination dated 04/03/2024. TECHNIQUE: Helical CT scan of the chest was performed without intravenous contrast. Coronal and sagittal reformatted images were generated and reviewed. This CT exam was performed with one or more of the following dose reduction techniques: automated exposure control, adjustment of the mA and/or kV according to patient size, use of iterative reconstruction technique. DLP: 91 mGy-cm CHEST: The examination is limited by patient motion. THYROID: The thyroid is unremarkable. LUNGS: There are multiple 3-4 mm pulmonary nodules in the right upper lobe (series 5, images 40 and 44), in the right lower lobe (series 5, image 74), in the left upper lobe (series 5, images 25 and 56), and in the left lower lobe (series 5, image 76). Comparison with the prior study is limited due to respiratory motion artifact on both examinations. MEDIASTINUM: The previously seen enlarged paratracheal node is smaller in size measuring 2.8 x 1.8 cm (previously 3.7 x 3.6 cm). AVRIL: Evaluation of the hilar regions is limited by lack of intravenous contrast material. CARDIOVASCULATURE: The heart is normal in size. There is no pericardial effusion. There is dilatation of the ascending thoracic aorta measuring up to 4.0 cm and the distal aortic arch measuring up to 3.9 cm in diameter. DEGREE OF CORONARY CALCIFICATION: moderate PLEURA: There is no pleural effusion. No pneumothorax. MAIN AIRWAYS: The mainstem bronchi and proximal branches are patent. AXILLA: There is no axillary lymphadenopathy. BONES AND SOFT TISSUES: Unremarkable UPPER ABDOMEN: The visualized portions of the liver, spleen, and adrenals have an unremarkable unenhanced appearance. CT/CT chest wo IV con IMPRESSION: 1. Interval decrease in size of the previously noted enlarged right paratracheal lymph node. 2. Multiple 3-4 mm bilateral pulmonary nodules. Follow-up is recommended. Electronically signed by: Bladimir Gupta MD 09/04/2024 09:50 AM EDT
--- OUTSIDE RECORDS SUMMARY | 2024-09-04 09:24 | XMS_ITS | Encounter Summary ---
Author Organization [employer] Address [address] [facility] 7[address] [place] [address] Care Team Providers Care Revival Clerk Name Role Phone Balaji Quinones MD Primary Care Provide r Kristi Giles PharmD Unavailable +- Birgit Franklin PharmD Unavailable [phone] Encounter Details Date Type Department Care Team (Late st Contact Info) Description 01/28/2022 Abstract [facility] [address] [place] [phone] Kristi Giles PharmD [address] [place] [address] Social History Tobacco Use Types Packs/Day Years [...] Care Team (Late st Contact Info) Description 10/17/2024 11:00 AM EDT Medication Management [facility] [address] [place] [phone] Birgit Franklin PharmD [address] [place] [address] 10/21/2024 2:15 PM EDT Office Visit [facility] [address] [place] [address] Balaji Quinones MD [address] [place] [address] documented as of this encounter Goals Goal [...] on filedocumented in this encounter Care Teams Revival Clerk Relationship Specialty Start Date End Date Balaji Quinones MD [address] [place] [address] PCP - General Internal Medicine 11/25/13 Kristi Giles PharmD [address] [place] [address] Pharmacist Internal Medicine 01/30/22 06/05/24 Birgit Franklin PharmD [address] [place] [address] 1937[address] Pharmacist Internal Medicine 06/06/24 documented as of this encounter
== END 2024-09-04 08:58 | disposition home or self-care (01) ==
LOC: HO.CT 08:57
PROVIDERS: PCP Internal Medicine; Visit Provider Hospitalist
DX: R59.0 Localized enlarged lymph nodes (principal)
CPT/HCPCS: 71250

== ENCOUNTER → 2024-09-04 08:58 | Outpatient (BNV) | payer MEDICARE, MEDICAID, SELFPAY | PROVIDERS: PCP Internal Medicine; Visit Provider Radiology Diagnostic Radiology | DX: R91.1 Solitary pulmonary nodule (principal) | CPT/HCPCS: 71250 ==

== ENCOUNTER 2024-09-18 08:57 | Outpatient (REF) | payer MEDICARE, MEDICAID, SELFPAY ==
--- OUTSIDE RECORDS SUMMARY | 2024-09-18 09:19 | XMS_ITS | Encounter Summary ---
Author Organization [employer] Address [address] [facility] 7[address] [place] [address] Care Team Providers Care Validation Engineer Name Role Phone Balaji Quinones MD Primary Care Provide r Kristi Giles PharmD Unavailable +- Birgit Franklin PharmD Unavailable [phone] Encounter Details Date Type Department Care Team (Late st Contact Info) Description 01/28/2022 Abstract [facility] [address] [place] [phone] Kristi Giles PharmD [address] [place] [address] Social History Tobacco Use Types Packs/Day Years [...] Description 10/17/2024 11:00 AM EDT Medication Management [facility] [address] [place] [address] Birgit Franklin PharmD [address] [place] [address] 10/21/2024 2:15 PM EDT Office Visit [facility] [address] [place] [address] Balaji Quinones MD [address] [place] [address] documented as of this encounter Goals Goal [...] on filedocumented in this encounter Care Teams Validation Engineer Relationship Specialty Start Date End Date Balaji Quinones MD [address] [place] [phone] PCP - General Internal Medicine 11/25/13 Kristi Giles PharmD [address] [place] [address] Pharmacist Internal Medicine 01/30/22 06/05/24 Birgit Franklin PharmD [address] [place] [phone] Pharmacist Internal Medicine 06/06/24 documented as of this encounter
[2024-09-18 11:29] LABS: Prostate Specific Antigen 0.19 ng/mL (<0.05-4.0)
== END 2024-09-18 08:58 | disposition home or self-care (01) ==
LOC: HO.10HDL 08:57
PROVIDERS: Visit Provider Urology
DX: Z12.5 Encounter for screening for malignant neoplasm of prostate (principal); C61 Malignant neoplasm of prostate; C77.1 Secondary and unspecified malignant neoplasm of intrathoracic lymph nodes
CPT/HCPCS: 36415; 84153; 84403

== ENCOUNTER 2024-10-01 13:04 | Outpatient (AMB) | payer MEDICARE, MEDICAID, SELFPAY ==
--- NOTE | 2024-10-01 12:52 | MHC.OFFVIS ---
Intake Visit Reasons: 3M follow up/ PSA Total Intake Note: Pt presents to the office today for a 3 month follow up Urology meds :Abiraterone Blood thinner : asprin Labs done 09/18/2024: PSA:0.19, Total testosterone : 3L Perinatal Social Worker Required: Yes Perinatal Social Worker Language: Citizen [place] Accompanied by: Self / Same As Patient Allergies No Known Allergies Allergy (Verified 10/01/24 12:56) HPI Comments Details: Paul is a pleasant Citizen [place]-speaking male. He is a patient of Dr. Grimes. 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 07/06 - GnRH 06/26/24 - Prostate MRI - NAD prostate - confirms kristi disease. No evidence of bob disease. - switch from bicalutamide to abiraterone 06/06 Interval history Presented to pulmonary with shortness of breath Chest CT with pulmonary mass Bronchoscopy cytology shows cells consistent with metastatic prostate cancer PET- CT - 06/06 - positive pulmonary mass, para-aortic, external lymph nodes bilateral consistent with metastatic prostate cancer Prostate biopsy - 10/05 acute and chronic inflammation Initiated bicalutamide Elevated PSA 07/05 12.5, 05/06 49, 06/27/24 7.6 Repeat PSA 15.8 Prostate biopsy - 10/05 acute and chronic inflammation PFSH Medical History Lymphadenopathy, mediastinal Thoracic aortic aneurysm (TAA) Depression Hyperlipemia HTN (hypertension) Diabetes Anemia Surgical History Hx of prostate biopsy Hx of umbilical hernia repair H/O colonoscopy Family History Sister Breast cancer Social History Household Members: None Housing: Apartment Are you a primary health care administrator to a significant other at home: No Do you presently have visiting nurse or other home services: No Alcohol intake: former Patient Tobacco Use Status: Never used Tobacco service: No Current occupational status: disabled Review of Systems Const Denies chills and Denies fever(s) Card Reports no additional complaints and Denies syncope Resp Denies cough GI Denies abdominal pain and Denies heartburn Reports as per HPI and Denies change in libido Neuro Denies syncope Psych Denies change in libido Endo Denies change in libido Physical Exam Const General: cooperative, healthy appearing, comfortable and no acute distress Orientation/consciousness: patient oriented x3 HEENT Face and sinus: Yes normal facial exam Mouth: moist mucous membranes Neck Neck: Yes normal visual inspection, Yes full ROM and Yes trachea midline Chest Chest palpation & inspection: normal inspection of the chest Resp Effort & Inspection: normal respiratory effort, able to speak in complete sentences and no respiratory distress GI Inspection: Yes normal to inspection Back/Spine/Pelvis Cervical Spine: normal cervical lordosis Thoracic/Lumbar Spine: thoracic and lumbar spine normal to inspection Skin General skin exam: no rashes or lesions noted Neuro General: patient oriented x3, gait normal, tone normal and moves all extremities Extrem General: Yes normal to inspection and Yes capillary refill normal Assessment & Plan Assessment & Plan (1) 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: Code(s): C61 - Malignant neoplasm of prostate; C77.1 - Secondary and unspecified malignant neoplasm of intrathoracic lymph nodes Category: Medical Plan Three-month follow-up repeat GnRH, DEXA scan, lab work Orders: Orders Testosterone, Total 3 Months C61 - Malignant neoplasm of prostate, C77.5 - Secondary and unspecified malignant neoplasm of intrapelvic lymph nodes XR DEXA axial skeleton 3 Months C61 - Malignant neoplasm of prostate, C77.5 - Secondary and unspecified malignant neoplasm of intrapelvic lymph nodes Prostate Specific Antigen 3 Months C61 - Malignant neoplasm of prostate, C77.5 - Secondary and unspecified malignant neoplasm of intrapelvic lymph nodes Patient Instructions: This note is constructed using voice recognition software. While every effort has been made to ensure accuracy dental ceramist errors may have been included. Imaging studies, laboratory and physical exam results were discussed and reviewed in detail. No major barriers to patient understanding were identified. An opportunity to ask questions regarding the treatment plan was provided. All questions were answered. The patient expressed understanding and agreement with the above treatment plan. The patient is aware they should contact our office by phone for worsening of their current condition or the appearance of new urologic symptoms. Compliance is encouraged with any medications and followup testing that is ordered. It is a privilege to participate in the urologic care of your patient. If you have any questions or concerns regarding treatment for the above conditions, or other urologic issues, please do not hesitate to contact me. The office telephone contact is [phone]. 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
--- OUTSIDE RECORDS SUMMARY | 2024-10-01 13:57 | XMS_ITS | Encounter Summary ---
Author Organization [employer] Address [address] [facility] 7[address] [place] [address] Care Team Providers Care Bacon De Rinder Name Role Phone Balaji Quinones MD Primary Care Provide r Kristi Giles PharmD Unavailable + Birgit Franklin PharmD Unavailable [phone] Encounter Details Date Type Department Care Team (Late st Contact Info) Description 01/28/2022 Abstract [facility] [address] [place] [phone] Kristi Giles PharmD [address] [place] [address] Social History Tobacco Use Types Packs/Day Years [...] Description 10/17/2024 11:00 AM EDT Medication Management [facility] [address] [place] [phone] Birgit Franklin PharmD [address] [place] [address] 10/21/2024 2:15 PM EDT Office Visit [facility] [address] [place] [address] Balaji Quinones MD [address] [place] [address] documented as of this encounter Goals Goal [...] on filedocumented in this encounter Care Teams Bacon De Rinder Relationship Specialty Start Date End Date Balaji Quinones MD [address] [place] [address] PCP - General Internal Medicine 11/25/13 Kristi Giles PharmD [address] [place] [address] Pharmacist Internal Medicine 01/30/22 06/05/24 Birgit Franklin PharmD [address] [place] [address] Pharmacist Internal Medicine 06/06/24 documented as of this encounter
== END 2024-10-01 13:42 | disposition home or self-care (01) ==
LOC: HO.HUSH 13:04
PROVIDERS: PCP Internal Medicine; Visit Provider Urology
DX: C61 Malignant neoplasm of prostate (principal); C77.1 Secondary and unspecified malignant neoplasm of intrathoracic lymph nodes
CPT/HCPCS: 99213; G2211

== ENCOUNTER → 2024-10-01 13:04 | Outpatient (BNVA) | payer MEDICARE, MEDICAID, SELFPAY | PROVIDERS: PCP Internal Medicine; Visit Provider Urology | DX: C61 Malignant neoplasm of prostate (principal); C77.1 Secondary and unspecified malignant neoplasm of intrathoracic lymph nodes | CPT/HCPCS: 99212 ==

== ENCOUNTER 2024-10-22 13:52 | Outpatient (REF) | payer MEDICARE, MEDICAID, SELFPAY ==
--- OUTSIDE RECORDS SUMMARY | 2024-10-21 14:15 | XMS_ITS | Encounter Summary ---
Author Organization [employer] Address [address] [facility] [address] 7t [place] [address] Care Team Providers Care Supervisor Rework Name Role Phone Balaji Quinones MD Primary Care Provide r Birgit Franklin PharmD Unavailable [phone] Reason for Visit * Reason Comments Follow-up Encounter Details Date Type Department Care Team (Latest Contact Info) Description 10/21/2024 2:15 PM EDT Office Visit [facility] [address] [place], [place] [phone] Balaji Quinones MD [address] [place], [place] [phone] Type 2 diabetes mellitus without complication, without long-term current use of insulin (CMS/HCC) (Primary Dx); Prostate cancer, primary, with metastasis from prostate to other site (CMS/HCC); Primary hypertension; Mixed hyperlipidemia Social History Tobacco Use Types Packs/Day Years [...] AM EDT documented as of this encounter Last Filed Vital Signs Vital Sign Reading Time Taken Comments Blood Pressure 124/68 10/21/2024 1:58 PM EDT Pulse 77 10/21/2024 1:58 PM EDT Temperature 36.1 C (97 F) 10/21/2024 1:58 PM EDT Respiratory Rate 15 10/21/2024 1:58 PM EDT Oxygen Saturation 98% 10/21/2024 1:58 PM EDT Inhaled Oxygen Concentration - - Weight 58.4 kg (128 lb 12.8 oz) 10/21/2024 1:58 PM EDT Height 160 cm (5' 3 ) 10/21/2024 1:58 PM EDT Body Mass Index 22.82 10/21/2024 1:58 PM EDT documented in this encounter Progress Notes * Balaji Donnelly MD - 10/21/2024 2:15 PM EDT SUBJECTIVE Paul Alonso is a 69 y.o. male who presents for Follow-up. Paul Alonso, 69 years Hypertension - Reports home blood pressure readings sometimes in the 120s - No symptoms reported related to blood pressure - Continues antihypertensive medication as prescribed Diabetes Mellitus - No symptoms reported related to blood sugar Cardiology Follow-up - Previously received annual or biannual appointments for cardiac profile - Reports cardiology office relocated, resulting in difficulty scheduling follow-up - Continues cardiac medication as prescribed - No cardiac symptoms reported Misc - Denies lack of medication supply - No other complaints reported Diabetes He presents for his follow-up diabetic visit. Pertinent negatives for hypoglycemia include no headaches. Pertinent negatives for diabetes include no chest pain. Review of Systems Constitutional: Negative for fever. HENT: Negative for sore throat. Respiratory: Negative for cough and shortness of breath. Cardiovascular: Negative for chest pain. Gastrointestinal: Negative for abdominal pain. Neurological: Negative for headaches. Allergies[1] OBJECTIVE Vitals: 10/21/24 1358 BP: 124/68 BP Location: Left arm Patient Position: Sitting BP Cuff Size: Adult Pulse: 77 Resp: 15 Temp: 97 ??F (36.1 ??C) TempSrc: Oral SpO2: 98% Weight: 128 lb 12.8 oz (58.4 kg) Height: 5' 3 (1.6 m) Physical Exam Vitals reviewed. Constitutional: Appearance: Normal appearance. HENT: Head: Normocephalic and atraumatic. Right Ear: External ear normal. Left Ear: External ear normal. Nose: Nose normal. Mouth/Throat: Mouth: Mucous membranes are moist. Eyes: Conjunctiva/sclera: Conjunctivae normal. Cardiovascular: Rate and Rhythm: Normal rate and regular rhythm. Pulmonary: Effort: Pulmonary effort is normal. Breath sounds: Normal breath sounds. Skin: General: Skin is warm. Neurological: Mental Status: He is alert. Mental status is at baseline. Assessment/Plan T Problem List Items Addressed This Visit Type 2 diabetes mellitus (CMS/HCC) - Primary Pt here for a f/u regarding his DM Today controlled He is on a regimen of: Metformin 1000 mg po BID, Glipizide XL 5mg po daily and Actos 45 mg po daily Hgb A1c 10/21/2024: 6.6 Eye exam done by Dr. Hopper Microalbumin checked on: 06/19/2023 was: 15.3 Pt on an DANETTE inhibitor. Foot check risk of zero Pt reports compliance with ASA 81 mg po daily Plan: continue current regimen Pt advised to: adhere to diabetic diet Contine to monitor blood sugars regularly Check feet on a daily basis. Follow-up in 4 months Relevant Orders POCT Glucose (Completed) POCT Hgb A1c (Completed) Prostate cancer, primary, with metastasis from prostate to other site (CMS/HCC) Patient here for a follow up Pt followed by Urology, who last saw him 10/01/2024 Hx of Elevated PSA. On 10/11/2023 he underwent a prostate biopsy 10/11/2023 that showed mostly benigntissue, only one sample showed: Atypical small acinar proliferation. Pt has a Hx of Thoracic aorticaneurysm and as part of surveillance he underwent a CTA of Chest 04/03/2024 that showed; 34 x 35 mm right paratracheal mass versus conglomerate lymphadenopathy. Pt was referred to Pulmonoogy, seen by Dr Castaneda 04/16/2024 and on 04/28/2024 underwent FNA. Pathology showed metastatic Prostate CA. Prostate MRI showed:No discrete focus of abnormal signal intensity is identified in the prostate gland to correspond to the patient's primary neoplasm. Left external iliac and femoral lymphadenopathyas described. Urologist started him on Abiraterone Will continue follow with urology Hypertension Pt here for a f/u BP remains controlled He is on a regimen of: Norvasc 10 mg po daily,, Carvedilol 3.125 mg po BID ( Rx by Cardiology ) andLisinopril 40 mg po daily. Plan: continue with current medical regimen. Most recent electrolytes, Bun and Creatinine done on: Lab Results Component Value Date NA 135 05/05/2024 NA 138 04/28/2024 K 4.4 05/05/2024 K 2.9 (LL) 04/28/2024 CL 101 05/05/2024 CL 99 04/28/2024 BUN 4 (L) 05/05/2024 BUN 9 04/28/2024 CREATININE 0.75 05/05/2024 CREATININE 0.75 04/28/2024 were within normal limits. patient advised to adhere to a low sodium diet and encouraged about medication compliance. Relevant Medications carvedilol (Coreg) 3.125 MG tablet Hyperlipidemia Pt here for a f/u Patient with elevated lipids. Most recent lipid profile from: Lab Results Component Value Date TRIG 158 (H) 06/19/2023 TRIG 131 07/05/2022 CHOL 127 06/19/2023 LDLCHOLCAL 66 06/19/2023 HDL 30 (L) 06/19/2023 Currently on a regimen of: Pravastatin 80 mg po q pm. . For now will continue with current regimen. Repeat Lipid profile advised to try to adhere to a low cholesterol diet, counseled and educated about diet and exercise,Patient encouraged to come up with a personal goal for weight loss. Relevant Orders Lipid Panel, Standard This note was drafted using Ambient (AI) technology. The patient/patient's guardian has been informed and has consented to the use of this technology: Yes Future Appointments Date Time Provider Department Center 10/29/2024 10:30 AM Birgit Franklin PharmD MEDICINE [facility] [1] No Known Allergies documented in this encounter Miscellaneous Notes * Assessment & Plan Note - Balaji Donnelly MD - 10/21/2024 2:20 PM EDT Associated Problem(s): Hyperlipidemia Pt here for a f/u Patient with elevated lipids. Most recent lipid profile from: Lab Results Component Value Date TRIG 158 (H) 06/19/2023 TRIG 131 07/05/2022 CHOL 127 06/19/2023 LDLCHOLCAL 66 06/19/2023 HDL 30 (L) 06/19/2023 Currently on a regimen of: Pravastatin 80 mg po q pm. . For now will continue with current regimen. Repeat Lipid profile advised to try to adhere to a low cholesterol diet, counseled and educated about diet and exercise,Patient encouraged to come up with a personal goal for weight loss. * Assessment & Plan Note - Balaji Donnelly MD - 10/21/2024 2:20 PM EDT Associated Problem(s): Hypertension Pt here for a f/u BP remains controlled He is on a regimen of: Norvasc 10 mg po daily,, Carvedilol 3.125 mg po BID ( Rx by Cardiology ) andLisinopril 40 mg po daily. Plan: continue with current medical regimen. Most recent electrolytes, Bun and Creatinine done on: Lab Results Component Value Date NA 135 05/05/2024 NA 138 04/28/2024 K 4.4 05/05/2024 K 2.9 (LL) 04/28/2024 CL 101 05/05/2024 CL 99 04/28/2024 BUN 4 (L) 05/05/2024 BUN 9 04/28/2024 CREATININE 0.75 05/05/2024 CREATININE 0.75 04/28/2024 were within normal limits. patient advised to adhere to a low sodium diet and encouraged about medication compliance. * Assessment & Plan Note - Balaji Donnelly MD - 10/21/2024 2:19 PM EDT Associated Problem(s): Type 2 diabetes mellitus (CMS/HCC) Pt here for a f/u regarding his DM Today controlled He is on a regimen of: Metformin 1000 mg po BID, Glipizide XL 5mg po daily and Actos 45 mg po daily Hgb A1c 10/21/2024: 6.6 Eye exam done by Dr. Hopper Microalbumin checked on: 06/19/2023 was: 15.3 Pt on an DANETTE inhibitor. Foot check risk of zero Pt reports compliance with ASA 81 mg po daily Plan: continue current regimen Pt advised to: adhere to diabetic diet Contine to monitor blood sugars regularly Check feet on a daily basis. Follow-up in 4 months * Assessment & Plan Note - Balaji Donnelly MD - 10/21/2024 2:18 PM EDT Associated Problem(s): Prostate cancer, primary, with metastasis from prostate to other site (CMS/HCC) Patient here for a follow up Pt followed by Urology, who last saw him 10/01/2024 Hx of Elevated PSA. On 10/11/2023 he underwent a prostate biopsy 10/11/2023 that showed mostly benigntissue, only one sample showed: Atypical small acinar proliferation. Pt has a Hx of Thoracic aorticaneurysm and as part of surveillance he underwent a CTA of Chest 04/03/2024 that showed; 34 x 35 mm right paratracheal mass versus conglomerate lymphadenopathy. Pt was referred to Pulmonoogy, seen by Dr Castaneda 04/16/2024 and on 04/28/2024 underwent FNA. Pathology showed metastatic Prostate CA. Prostate MRI showed:No discrete focus of abnormal signal intensity is identified in the prostate gland to correspond to the patient's primary neoplasm. Left external iliac and femoral lymphadenopathyas described. Urologist started him on Abiraterone Will continue follow with urology documented in this encounter Plan of Treatment Upcoming Encounters Date Type Department Care Team (Late st Contact Info) Description 10/29/2024 10:30 AM EDT Medication Management [facility] [address] [place], [place] [phone] Birgit Franklin PharmD [address] [place] [address] Scheduled Orders Name Type Priority Associated Diagnoses Orde r Schedule Lipid Panel, Standard Lab Routine Mixed hyperlipidemia Ordered: 10/21/2024 documented as of this encounter Goals Goal Patient Goal Type Associated Problems Recent Progress Patient-Stated? Author Blood Pressure < 140/90 Blood Pressure 124/68(2024 1:58 PM EDT) No Kristi Giles PharmD Note: Maintain BP less than 140/90 Record your blood pressure once per day Blood Pressure No Kristi Giles PharmD Note: Check BP daily Blood Pressure < 140/90 Blood Pressure Hypertension 124/68(2024 1:58 PM EDT) No Kristi Giles PharmIvan Follow the DASH diet Diet No Kristi Giles PharmD Note: Look for foods that are low sodium. Hemoglobin A1c < 7 Result Component Type 2 diabetes mellitus 6.6( 1:59 PM EDT) No Kristi Giles PharmD documented as of this encounter Procedures Procedure Name Priority Date/Time Associated Diagnosis Comments POCT GLYCATED HEMOGLOBIN, TOTAL Routine 10/21/2024 1:59 PM EDT Type 2 diabetes mellitus without complication, without long-term current use of insulin ([facility]) POCT GLUCOSE Routine 10/21/2024 1:58 PM EDT Type 2 diabetes mellitus without complication, without long-term current use of insulin ([facility]) documented in this encounter Results * (ABNORMAL) POCT Hgb A1c (10/21/2024 1:59 PM EDT) Hemoglobin A1C 6.6(A) 4.0 - 5.7 % QC Media Lot # [id number] Lot# Expiration Date , Blood 10/21/2024 1:59 PM EDT Balaji Donnelly MD POINT OF CARE TEST EN TER/EDIT ORDERABLES Final Result * (ABNORMAL) POCT Glucose (10/21/2024 1:58 PM EDT) Glucose Blood, POC 206(A) 60 - 200 mg/dL QC Media Lot # [id number] Lot# Expiration Date 2847,[id number] Blood Capillary blood specimen / Unknown 10/21/2024 1:58 PM EDT Balaji Donnelly MD POINT OF CARE TEST EN TER/EDIT ORDERABLES Final Result documented in this encounter Visit Diagnoses Diagnosis Type 2 diabetes mellitus without complication, without long-term current use of insulin ([facility])- Primary Prostate cancer, primary, with metastasis from prostate to other site ([facility]) Malignant neoplasm of prostate Primary hypertension Unspecified essential hypertension Mixed hyperlipidemia documented in this encounter Additional Health Concerns Assessment Noted Time PHQ-9 Depression Total Score: 0 05/16/19 25 11:46 AM EDT documented as of this encounter Care Teams Supervisor Rework Relationship Specialty Start Date End Date Balaji Quinones MD [address] [place] [phone] PCP - General Internal Medicine 11/25/13 Birgit Franklin, Quentin [address] [place] [phone] Pharmacist Internal Medicine 06/06/24 documented as of this encounter
--- NOTE | ~2024-10-22 | MM_ITS ---
EXAMINATION: DXA BONE DENSITY AXIAL HISTORY: M85.80 - Other specified disorders of bone density and structure, unspecified... TECHNIQUE: [employer]ape Dual energy absorptiometry (DEXA) of the lumbar spine, total left hip, and femoral neck was performed. COMPARISON: There are no prior studies for comparison. FINDINGS: The bone mineral density of the lumbar spine is 0.822 g/cm2, corresponding to a T-score of -3.3, and a Z-score of -2.1. This is indicative of osteoporosis. The bone mineral density of the left total hip is 0.822 g/cm2, corresponding to a T-score of -1.9, and a Z-score of -0.8. This is indicative of osteopenia. The bone mineral density of the left femoral neck is 0.756 g/cm2, corresponding to a T-score of -2.4, and a Z-score of -0.7. This is indicative of osteopenia. FRACTURE RISK: The FRAX index suggests a risk of major osteoporotic fracture of 4.9%, and of hip fracture 1.6%. MM/XR DEXA axial skeleton IMPRESSION: Based on bone mineral density, and according to World Health Organization (WHO) criteria, the diagnosis is consistent with osteoporosis. Statistically, 68% of repeat scans fall within 1 SD (+/- 0.010 g/cm2 for AP spine L1-L4) and 1 SD (+/- 0.012 g/cm2 for femur total) FRAX is a trademark of the [employer] [place] for Metabolic Bone Disease, a World Health Organization (WHO) Collaborating Center. Electronically signed by: Bladimir Gupta MD 10/22/2024 03:05 PM EDT
--- OUTSIDE RECORDS SUMMARY | 2024-10-22 16:58 | XMS_ITS | Encounter Summary ---
Author Organization [employer] Address [address] [facility] 7[address] [place] [address] Care Team Providers Care Head And Neck Surgeon Name Role Phone Balaji Quinones MD Primary Care Provide r Birgit Franklin PharmD Unavailable Encounter Details Date Type Department Care Team ([facility] st Contact Info) Description 07/08/2024 Telephone [facility] [address] [place], [place] [phone] Balaji Quinones MD [address] [place], [place] [phone] Social History Tobacco Use Types Packs/Day Years [...] Description 10/29/2024 10:30 AM EDT Medication Management [facility] [address] [place] [address] Birgit Franklin PharmD [address] [place] [address] documented as of this encounter Goals Goal [...] documented as of this encounter Care Teams Head And Neck Surgeon Relationship Specialty Start Date End Date Balaji Quinones MD [address] [place] [address] PCP - General Internal Medicine 11/25/13 Birgit Franklin PharmD [address] [place] [address] Pharmacist Internal Medicine 06/06/24 documented as of this encounter
--- OUTSIDE RECORDS SUMMARY | 2024-10-22 16:58 | XMS_ITS | Encounter Summary ---
Author Organization [employer] Address [address] [facility] 7t [place] [address] Care Team Providers Care Card Cutter Helper Name Role Phone Balaji Quinones MD Primary Care Provide r Kristi Giles PharmD Unavailable + Birgit Franklin PharmD Unavailable [phone] Encounter Details Date Type Department Care Team ([facility] Contact Info) Description 06/22/2022 Abstract [facility] [address] [place] [address] Balaji Quinones MD [address] [place], [place] [phone] Social History Tobacco Use Types Packs/Day Years [...] Department Care Team (Late Contact Info) Description 10/29/2024 10:30 AM EDT Medication Management [facility] [address] [place] [address] Birgit Franklin PharmD [address] [place] [address] documented as of this encounter Goals Goal [...] 1:58 PM EDT) No Kristi Giles PharmD Follow the DASH diet Diet No Kristi Giles PharmD Note: Look for foods that are low sodium. documented as of this encounter Procedures Procedure Name Priority Date/Time Associated Diagnosis Comments COLONOSCOPY Routine 07/10/2017 documented in this encounter Results * Colonoscopy (07/10/2017) Colonoscopy Normal Normal 07/10/2017 Narrative Yue Shikha - 07/10/2017 3:47 PM EDT Recommended 10 year follow up ( [facility] ) Historical Provider HEALTH MAINTENANCE Final Result documented in this encounter Visit Diagnoses Not on filedocumented in this encounter Care Teams Card Cutter Helper Relationship Specialty Start Date End Date Balaji Quinones MD [address] [place] [phone] PCP - General Internal Medicine 11/25/13 Kristi Giles PharmD [address] [place] [phone] Pharmacist Internal Medicine 01/30/22 06/05/24 Birgit Franklin PharmD [address] [place] [address] Pharmacist Internal Medicine 06/06/24 documented as of this encounter
--- OUTSIDE RECORDS SUMMARY | 2024-10-22 16:58 | XMS_ITS | Encounter Summary ---
Author Organization [employer] Address [address] [facility] 7t [place] [address] Care Team Providers Care Machine Baster Name Role Phone Balaji Quinones MD Primary Care Provide r Kristi Giles PharmD Unavailable + Birgit Franklin PharmD Unavailable [phone] Encounter Details Date Type Department Care Team (Late st Contact Info) Description 09/08/2022 [facility] Information Management [address] [place] [address] Balaji Quinones MD [address] [place], [place] [phone] Social History Tobacco Use Types Packs/Day Years [...] Description 10/29/2024 10:30 AM EDT Medication Management [facility] [address] [place], [place] [phone] Birgit Franklin PharmD [address] [place] [address] documented as of this encounter Goals Goal [...] on filedocumented in this encounter Care Teams Machine Baster Relationship Specialty Start Date End Date Balaji Quinones MD [address] [place] [phone] PCP - General Internal Medicine 11/25/13 Kristi Giles PharmD [address] [place] [address] Pharmacist Internal Medicine 01/30/22 06/05/24 Birgit Franklin PharmD [address] [place] [address] Pharmacist Internal Medicine 06/06/24 documented as of this encounter
--- OUTSIDE RECORDS SUMMARY | 2024-10-22 16:58 | XMS_ITS | Encounter Summary ---
Author Organization [employer] Address [address] 7[address] [place] [address] Care Team Providers Care Plastic Printer Name Role Phone Balaji Quinones MD Primary Care Provide r Birgit Franklin PharmD Unavailable [phone] Reason for Visit * Reason Onset Date Comments Med Refill 10/06/2024 Encounter Details Date Type Department Care Team ([facility] st Contact Info) Description 10/06/2024 Telephone [facility] [address] [place] [address] Balaji Quinones MD [address] [place], [place] [phone] Med Refill Social History Tobacco Use Types [...] Telephone Encounter - Celeste Negrete LPN - 10/06/2024 11:07 AM EDT Please review dose PCP prescribe? * Telephone Encounter - Ramesh Mdeina - 10/06/2024 10:39 AM EDT TC from pt requesting medication refill. Medications needing refill : Ascorbic Acid (vitamin C) 250 MG tablet To be sent to: [facility] *Script documented in this encounter Plan of Treatment Upcoming Encounters Date Type Department Care Team (Late st Contact Info) Description 10/29/2024 10:30 AM EDT Medication Management [facility] [address] [place] [address] Birgit Franklin PharmD [address] [place] [address] documented as of this encounter Goals Goal Patient Goal Type Associated Problems Recent Progress Patient-Stated? Author Blood Pressure < 140/90 Blood Pressure 124/68(2024 1:58 PM EDT) No Kristi Giles, Quentin Note: [...] documented as of this encounter Care Teams Plastic Printer Relationship Specialty Start Date End Date Balaji Quinones MD [address] [place] [address] PCP - General Internal Medicine 11/25/13 Birgit Franklin PharmD [address] [place] [address] Pharmacist Internal Medicine 06/06/24 documented as of this encounter
--- OUTSIDE RECORDS SUMMARY | 2024-10-22 16:58 | XMS_ITS | Encounter Summary ---
Author Organization [employer] Address [address] [facility] 7t [place] [address] Care Team Providers Care Detective Captain Name Role Phone Balaji Quinones MD Primary Care Provide r Kristi Giles PharmD Unavailable + Birgit Franklin PharmD Unavailable [phone] Reason for Visit * Reason Onset Date Comments Med Refill 01/30/2023 Encounter Details Date Type Department Care Team ([facility] st Contact Info) Description 01/30/[address] [facility] [address] [place] [address] Balaji Quinones MD 230 [place] [address] Med Refill Social History Tobacco Use Types [...] 81 MG EC tablet Please sent to [facility] [place], [place] - [address] [facility] Pt is due on holidays but is requesting if medication could be given before than. documented in this encounter Plan of Treatment Upcoming Encounters Date Type Department Care Team (Late st Contact Info) Description 10/29/2024 10:30 AM EDT Medication Management [facility] [address] [place] [address] Birgit Franklin PharmD [address] [place] [address] documented as of this encounter Goals Goal [...] on filedocumented in this encounter Care Teams Detective Captain Relationship Specialty Start Date End Date Balaji Quinones MD [address] [place] [address] [phone] PCP - General Internal Medicine 11/25/13 Kristi Giles PharmD [address] [place] [phone] Pharmacist Internal Medicine 01/30/22 06/05/24 Birgit Franklin, Quentin [address] [place] [address] Pharmacist Internal Medicine 06/06/24 documented as of this encounter
--- OUTSIDE RECORDS SUMMARY | 2024-10-22 16:58 | XMS_ITS | Encounter Summary ---
Author Organization [employer] Address 75 [facility] 7t [place] [address] Care Team Providers Care Coke Inspector Name Role Phone Balaji Quinones MD Primary Care Provide r Kristi Gilse PharmD Unavailable + Birgit Franklin PharmD Unavailable [phone] Reason for Visit * Reason Comments Med Refill Encounter Details Date Type Department Care Team (Late Contact Info) Description 03/08/2023 Refill [facility] [address] [place] [address] Balaji Quinones MD [address] [place], [place] [phone] Folliculitis Social History Tobacco Use Types Packs/Day [...] Description 10/29/2024 10:30 AM EDT Medication Management [facility] [address] [place] [address] Birgit Franklin PharmD [address] [place] [address] documented as of this encounter Goals Goal [...] follicles documented in this encounter Care Teams Coke Inspector Relationship Specialty Start Date End Date Balaji Quinones MD [address] [place] [address] PCP - General Internal Medicine 11/25/13 Kristi Giles PharmD [address] [place] [address] Pharmacist Internal Medicine 01/30/22 06/05/24 Birgit Franklin PharmD [address] [place] [phone] Pharmacist Internal Medicine 06/06/24 documented as of this encounter
--- OUTSIDE RECORDS SUMMARY | 2024-10-22 16:58 | XMS_ITS | Encounter Summary ---
Author Organization [employer] Address 75 [facility] 7t [place] [address] Care Team Providers Care Police Officer Name Role Phone Balaji Quinones MD Primary Care Provide r Kristi Giles PharmD Unavailable + Birgit Franklin PharmD Unavailable [phone] Reason for Visit * Reason Comments Med Refill Encounter Details Date Type Department Care Team (Late st Contact Info) Description 12/30/2022 Refill [facility] [address] [place] [address] Balaji Quinones MD [address] [place] [address] Tinea pedis of both feet Social History [...] Description 10/29/2024 10:30 AM EDT Medication Management [facility] [address] [place] [address] Birgit Franklin PharmD [address] [place] [address] documented as of this encounter Goals Goal [...] feet documented in this encounter Care Teams Police Officer Relationship Specialty Start Date End Date Balaji Quinones MD [address] [place] [phone] PCP - General Internal Medicine 11/25/13 Kristi Giles PharmD [address] [place] [phone] Pharmacist Internal Medicine 01/30/22 06/05/24 Birgit Franklin PharmD [address] [place] [address] Pharmacist Internal Medicine 06/06/24 documented as of this encounter
--- OUTSIDE RECORDS SUMMARY | 2024-10-22 16:58 | XMS_ITS | Encounter Summary ---
Author Organization [employer] Address 75 [facility] 7t [place] [address] Care Team Providers Care Outreach Worker Name Role Phone Balaji Quinones MD Primary Care Provide r Kristi Giles PharmD Unavailable + Birgit Franklin PharmD Unavailable [phone] Reason for Visit * Reason Comments Med Refill Encounter Details Date Type Department Care Team (Late st Contact Info) Description 10/27/2022 Refill [facility] MED[facility]INE 230 [place] [address] Balaji Quinones MD 230 [place], [place] [phone] Dermatitis of lower extremity Social History Tobacco [...] Description 10/29/2024 10:30 AM EDT Medication Management [facility] MED[facility]INE 230 [place] [address] Birgit Franklin PharmD [address] [place] [address] documented as of this encounter Goals Goal [...] extremity documented in this encounter Care Teams Outreach Worker Relationship Specialty Start Date End Date Balaji Quinones MD 230 [place] [address] PCP - General Internal Medicine 11/25/13 Kristi Giles PharmD 230 [place] [address] Pharmacist Internal Medicine 01/30/22 06/05/24 Birgit Franklin PharmD 230 [place] [address] Pharmacist Internal Medicine 06/06/24 documented as of this encounter
--- OUTSIDE RECORDS SUMMARY | 2024-10-22 16:58 | XMS_ITS | Encounter Summary ---
Author Organization [employer] Address [address] [facility] 7t [place] [address] Care Team Providers Care Sales Administration Manager Name Role Phone Balaji Quinones MD Primary Care Provide r Kristi Giles PharmD Unavailable + Birgit Franklin PharmD Unavailable [phone] Reason for Visit * Reason Onset Date Comments Durable Medical Equipment 01/30/2023 Encounter Details Date Type Department Care Team ([facility] st Contact Info) Description 01/30/2023 Telephone [facility] [address] [place] [address] Balaji Quinones MD 230 [place] [address] Durable Medical Equipment Social History Tobacco Use [...] and taking falls. Please contact pt @ [phone] Indonesian Speaker documented in this encounter Plan of Treatment Upcoming Encounters Date Type Department Care Team (Late st Contact Info) Description 10/29/2024 10:30 AM EDT Medication Management [facility] [address] [place] [address] Birgit Franklin PharmD 230 [place] [address] documented as of this encounter Goals Goal [...] on filedocumented in this encounter Care Teams Sales Administration Manager Relationship Specialty Start Date End Date Balaji Quinones MD [address] [place] [address] PCP - General Internal Medicine 11/25/13 Kristi Giles PharmD [address] [place] [address] Pharmacist Internal Medicine 01/30/22 06/05/24 Birgit Franklin PharmD [address] [place] [address] Pharmacist Internal Medicine 06/06/24 documented as of this encounter
--- OUTSIDE RECORDS SUMMARY | 2024-10-22 16:58 | XMS_ITS | Encounter Summary ---
Author Organization [employer] Address 75 [facility] 7t [place] [address] Care Team Providers Care Core Shaper Sides Name Role Phone Balaji Quinones MD Primary Care Provide r Kristi Giles PharmD Unavailable +- Birgit Franklin PharmD Unavailable [phone] Encounter Details Date Type Department Care Team (Late st Contact Info) Description 01/28/2022 Abstract [facility] MEDICINE [address] [place] [address] Kristi Giles PharmD 230 [place] [address] Social History Tobacco Use Types Packs/Day Years [...] Description 10/29/2024 10:30 AM EDT Medication Management [facility] MED[facility] [address] [place] [address] Birgit Franklin PharmD 230 [place] [address] documented as of this encounter Goals Goal [...] on filedocumented in this encounter Care Teams Core Shaper Sides Relationship Specialty Start Date End Date Balaji Quinones MD [address] [place] [address] PCP - General Internal Medicine 11/25/13 Kristi Giles PharmD [address] [place] [address] Pharmacist Internal Medicine 01/30/22 06/05/24 Birgit Franklin PharmD [address] [place] [address] Pharmacist Internal Medicine 06/06/24 documented as of this encounter
--- OUTSIDE RECORDS SUMMARY | 2024-10-22 16:58 | XMS_ITS | Encounter Summary ---
Author Organization [employer] Address [address] [facility] [address] [facility] [address] 7t [place] [address] Care Team Providers Care Physical Director Name Role Phone Balaji Quinones MD Primary Care Provide r Kristi Giles PharmD Unavailable + Birgit Franklin PharmD Unavailable +[phone] Reason for Visit * Reason Comments Med Refill Encounter Details Date Type Department Care Team ([facility] st Contact Info) Description 12/24/2023 Refill [facility] 230 [place] [address] Baljai Quinones MD 230 [place] [address] Folliculitis Social History Tobacco Use Types Packs/Day [...] Description 10/29/2024 10:30 AM EDT Medication Management [facility] MED[facility]INE 230 [place] [address] Birgit Franklin PharmD [address] [place] [address] documented as of this encounter Goals Goal [...] documented as of this encounter Care Teams Physical Director Relationship Specialty Start Date End Date Balaji Quinones MD [address] [place] [address] PCP - General Internal Medicine 11/25/13 Kristi Giles PharmD [address] [place] [address] Pharmacist Internal Medicine 01/30/22 06/05/24 Birgit Franklin PharmD [address] [place] [address] Pharmacist Internal Medicine 06/06/24 documented as of this encounter
--- OUTSIDE RECORDS SUMMARY | 2024-10-22 16:58 | XMS_ITS | Encounter Summary ---
Author Organization [employer] Address [address] [facility] [address] 7t [place] [address] Care Team Providers Care Mainspring Strip Gauger Name Role Phone Balaji Quinones MD Primary Care Provide r Kristi Giles PharmD Unavailable + Birgit Franklin PharmD Unavailable [phone] Reason for Visit * Reason Comments Med Refill Encounter Details Date Type Department Care Team ([facility] st Contact Info) Description 08/01/2023 Refill [facility] 230 [place] [address] Vani Stallworth MD 230 [place] [address] Folliculitis Social History Tobacco Use Types Packs/Day [...] Description 10/29/2024 10:30 AM EDT Medication Management [facility] MEDICINE 230 [place] [address] Birgit Franklin PharmD [address] [place] [address] documented as of this encounter Goals Goal [...] documented as of this encounter Care Teams Mainspring Strip Gauger Relationship Specialty Start Date End Date Balaji Quinones MD [address] [place] [address] PCP - General Internal Medicine 11/25/13 Kristi Giles PharmD [address] [place] [address] Pharmacist Internal Medicine 01/30/22 06/05/24 Birgit Franklin PharmD [address] [place] [address] Pharmacist Internal Medicine 06/06/24 documented as of this encounter
--- OUTSIDE RECORDS SUMMARY | 2024-10-22 16:58 | XMS_ITS | Encounter Summary ---
Author Organization [employer] Address 75 [facility] 7t [place] [address] Care Team Providers Care Trust Officer Name Role Phone Balaji Quinones MD Primary Care Provide r Kristi Giles PharmD Unavailable + Birgit Franklin PharmD Unavailable [phone] Reason for Visit * Reason Comments Med Refill Encounter Details Date Type Department Care Team (Late st Contact Info) Description 04/17/2022 Refill [facility] MEDICINE 230 [place] [address] Brook Guerrero MD 230 [place] [address] Other chronic pain Social History Tobacco Use [...] Description 10/29/2024 10:30 AM EDT Medication Management [facility] MEDICINE 230 [place], [place] [phone] Birgit Franklin PharmD [address] [place] [address] documented as of this encounter Goals Goal [...] pain documented in this encounter Care Teams Trust Officer Relationship Specialty Start Date End Date Balaji Quinones MD [address] [place] [address] PCP - General Internal Medicine 11/25/13 Kristi Giles PharmD [address] [place] [address] Pharmacist Internal Medicine 01/30/22 06/05/24 Birgit Franklin PharmD [address] [place] [address] Pharmacist Internal Medicine 06/06/24 documented as of this encounter
--- OUTSIDE RECORDS SUMMARY | 2024-10-22 16:58 | XMS_ITS | Encounter Summary ---
Author Organization [employer] Address [address] [facility] [address] 7t [place] [address] Care Team Providers Care Preforms Laminator Name Role Phone Balaji Quinones MD Primary Care Provide r Kristi Giles PharmD Unavailable + Birgit Franklin PharmD Unavailable [phone] Reason for Visit * Reason Comments Med Refill Encounter Details Date Type Department Care Team ([facility] st Contact Info) Description 04/19/2023 Refill [facility] MEDICINE 230 [place] [address] Balaji Quinones MD 230 [place] [address] Primary hypertension; Folliculitis Social History Tobacco Use [...] Description 10/29/2024 10:30 AM EDT Medication Management [facility] MEDICINE 230 [place] [address] Birgit Franklin PharmD 230 [place] [address] documented as of this encounter Goals Goal [...] documented as of this encounter Care Teams Preforms Laminator Relationship Specialty Start Date End Date Balaji Quinones MD 230 [place] [address] PCP - General Internal Medicine 11/25/13 Kristi Giles PharmD 230 [place] [address] Pharmacist Internal Medicine 01/30/22 06/05/24 Birgit Franklin PharmD 230 [place] [address] Pharmacist Internal Medicine 06/06/24 documented as of this encounter
--- OUTSIDE RECORDS SUMMARY | 2024-10-22 16:58 | XMS_ITS | Encounter Summary ---
Author Organization [employer] Address [address] [facility] [address] 7t [place] [address] Care Team Providers Care Quill Machine Operator Name Role Phone Balaji Quinones MD Primary Care Provide r Birgit Franklin PharmD Unavailable [phone] Reason for Visit * Reason Comments Med Refill Encounter Details Date Type Department Care Team ([facility] st Contact Info) Description 10/06/2024 Refill [facility] MEDICINE 230 [place] [address] Balaji Quinones MD 230 [place] [address] Social History Tobacco Use Types Packs/Day Years [...] 10:30 AM EDT Medication Management [facility] MED[facility]INE 230 [place] [address] Birgit Franklin PharmD 230 [place] [address] documented as of this encounter Goals Goal [...] documented as of this encounter Care Teams Quill Machine Operator Relationship Specialty Start Date End Date Balaji Quinones MD 230 [place] [address] PCP - General Internal Medicine 11/25/13 Birgit Franklin PharmD [address] [place] [address] Pharmacist Internal Medicine 06/06/24 documented as of this encounter
--- OUTSIDE RECORDS SUMMARY | 2024-10-22 16:58 | XMS_ITS | Encounter Summary ---
Author Organization [employer] Address 75 [facility] 7t [place] [address] Care Team Providers Care Drilling Superintendent Name Role Phone Balaji Quinones MD Primary Care Provide r Kristi Giles PharmD Unavailable + Birgit Franklin PharmD Unavailable [phone] Reason for Visit * Reason Comments Med Refill Encounter Details Date Type Department Care Team (Late st Contact Info) Description 01/30/2023 Refill [facility] 230 [place] [address] Balaji Quinones MD 230 [place] [address] Social History Tobacco Use Types Packs/Day Years [...] 10/29/2024 10:30 AM EDT Medication Management [facility] MEDICINE [address] [place] [address] Birgit Franklin PharmD 230 [place] [address] documented as of this encounter Goals Goal [...] on filedocumented in this encounter Care Teams Drilling Superintendent Relationship Specialty Start Date End Date Balaji Quinones MD 230 [place] [address] PCP - General Internal Medicine 11/25/13 Kristi Giles PharmD 230 [place] [address] Pharmacist Internal Medicine 01/30/22 06/05/24 Birgit Franklin PharmD 230 [place] [address] Pharmacist Internal Medicine 06/06/24 documented as of this encounter
--- OUTSIDE RECORDS SUMMARY | 2024-10-22 16:58 | XMS_ITS | Encounter Summary ---
Author Organization [employer] Address [address] [facility] [address] 7t [place] [address] Care Team Providers Care Staff Assistant Name Role Phone Balaji Quinones MD Primary Care Provide r Kristi Giles PharmD Unavailable + Birgit Franklin PharmD Unavailable [phone] Reason for Visit * Reason Comments Med Refill Encounter Details Date Type Department Care Team ([facility] st Contact Info) Description 06/11/2023 Refill [facility] [address] [place], [place] [phone] Balaji Quinones MD [address] [place] [address] Swelling of right middle finger Social History [...] 10:30 AM EDT Medication Management [facility] MEDICINE 230 [place] [address] Birgit Franklin PharmD 230 [place] [address] documented as of this encounter Goals Goal [...] documented as of this encounter Care Teams Staff Assistant Relationship Specialty Start Date End Date Balaji Quinones MD [address] [place] [address] PCP - General Internal Medicine 11/25/13 Kristi Giles PharmD [address] [place] [address] Pharmacist Internal Medicine 01/30/22 06/05/24 Birgit Franklin PharmD [address] [place] [address] Pharmacist Internal Medicine 06/06/24 documented as of this encounter
--- OUTSIDE RECORDS SUMMARY | 2024-10-22 16:58 | XMS_ITS | Encounter Summary ---
Author Organization [employer] Address 75 [facility] 7t [place] [address] Care Team Providers Care Ms Sql Server Developer Name Role Phone Balaji Quinones MD Primary Care Provide r Kristi Giles PharmD Unavailable + Birgit Franklin PharmD Unavailable [phone] Reason for Visit * Reason Comments Med Refill Encounter Details Date Type Department Care Team (Late st Contact Info) Description 05/11/2022 Refill [facility] 230 [place] [address] Balaji Quinones MD 230 [place], [place] [phone] Swelling of right middle finger Social History [...] [facility] MED[facility]INE [address] [place] [address] Birgit Franklin PharmD 230 [place] [address] documented as of this encounter Goals Goal [...] finger documented in this encounter Care Teams Ms Sql Server Developer Relationship Specialty Start Date End Date Balaji Quinones MD 230 [place] [address] PCP - General Internal Medicine 11/25/13 Kristi Giles PharmD [address] [place] [address] Pharmacist Internal Medicine 01/30/22 06/05/24 Birgit Franklin PharmD [address] [place] [address] Pharmacist Internal Medicine 06/06/24 documented as of this encounter
--- OUTSIDE RECORDS SUMMARY | 2024-10-22 16:58 | XMS_ITS | Encounter Summary ---
Author Organization [employer] Address [address] [facility] [address] 7t [place] [address] Care Team Providers Care Merchant Seaman Name Role Phone Balaji Quinones MD Primary Care Provide r Kristi Giles PharmD Unavailable + Birgit Franklin PharmD Unavailable [phone] Reason for Visit * Reason Comments Med Refill Encounter Details Date Type Department Care Team ([facility] st Contact Info) Description 06/25/2023 Refill [facility] 230 [place] [address] Balaji Quinones MD 230 [place], [place] [phone] Folliculitis Social History Tobacco Use Types Packs/Day [...] Description 10/29/2024 10:30 AM EDT Medication Management [facility] MEDICINE [address] [place] [address] Birgit Franklin PharmD 230 [place] [address] documented as of this encounter Goals Goal [...] documented as of this encounter Care Teams Merchant Seaman Relationship Specialty Start Date End Date Balaji Quinones MD [address] [place] [address] PCP - General Internal Medicine 11/25/13 Kristi Giles PharmD [address] [place] [address] Pharmacist Internal Medicine 01/30/22 06/05/24 Birgit Franklin PharmD [address] [place] [address] Pharmacist Internal Medicine 06/06/24 documented as of this encounter
--- OUTSIDE RECORDS SUMMARY | 2024-10-22 16:58 | XMS_ITS | Encounter Summary ---
Author Organization [employer] Address 75 [facility] 7t [place] [address] Care Team Providers Care Jewelry Finisher Name Role Phone Balaji Quinones MD Primary Care Provide r Kristi Giles PharmD Unavailable + Birgit Franklin PharmD Unavailable [phone] Reason for Visit * Reason Comments Med Refill Encounter Details Date Type Department Care Team (Late st Contact Info) Description 03/01/2023 Refill [facility] MEDICINE 230 [place] [address] Balaji Quinones MD 230 [place] [address] Type 2 diabetes mellitus without complication, unspecified whether care home insulin use ([facility]) Social History Tobacco Use Types Packs/Day [...] 10:30 AM EDT Medication Management [facility] MEDICINE 230 [place] [address] Birgit Franklin PharmD [address] [place] [address] documented as of this encounter Goals Goal [...] 2 diabetes mellitus without complication, unspecified whether regional intermodal truck driver insulin use ([facility]) documented in this encounter Care Teams Jewelry Finisher Relationship Specialty Start Date End Date Balaji Quinones MD [address] [place] [address] PCP - General Internal Medicine 11/25/13 Kristi Giles PharmD [address] [place] [address] Pharmacist Internal Medicine 01/30/22 06/05/24 Birgit Franklin PharmD [address] [place] [address] Pharmacist Internal Medicine 06/06/24 documented as of this encounter
--- OUTSIDE RECORDS SUMMARY | 2024-10-22 16:58 | XMS_ITS | Encounter Summary ---
Author Organization [employer] Address 75 [facility] 7t [place] [address] Care Team Providers Care Pantograph Transferrer Name Role Phone Balaji Quinones MD Primary Care Provide r Kristi Giles PharmD Unavailable + Birgit Franklin PharmD Unavailable [phone] Reason for Visit * Reason Comments Med Refill Encounter Details Date Type Department Care Team (Late st Contact Info) Description 09/17/2022 Refill [facility] 230 [place] [address] Balaji Quinones MD 230 [place], [place] [phone] Dry eyes Social History Tobacco Use Types [...] Description 10/29/2024 10:30 AM EDT Medication Management [facility] MEDICINE 230 [place] [address] Birgit Franklin PharmD 230 [place] [address] documented as of this encounter Goals Goal [...] insufficiency documented in this encounter Care Teams Pantograph Transferrer Relationship Specialty Start Date End Date Balaji Quinones MD 230 [place] [address] PCP - General Internal Medicine 11/25/13 Kristi Giles PharmD 230 [place] [address] Pharmacist Internal Medicine 01/30/22 06/05/24 Birgit Franklin PharmD 230 [place] [address] Pharmacist Internal Medicine 06/06/24 documented as of this encounter
--- OUTSIDE RECORDS SUMMARY | 2024-10-22 16:58 | XMS_ITS | Encounter Summary ---
Author Organization [employer] Address [address] [facility] [address]t [place] [address] Care Team Providers Care Retail Pricing Coordinator Name Role Phone Balaji Quinones MD Primary Care Provide r Birgit Franklin PharmD Unavailable [phone] Encounter Details Date Type Department Care Team (Latest Contact Info) Description 10/21/2024 Travel Social History Tobacco Use Types Packs/Day Years [...] [facility] 230 [place], [place] [phone] Birgit Franklin PharmD 230 [place], [place] [phone] documented as of this encounter Goals Goal [...] as of this encounter Care Teams Retail Pricing Coordinator Relationship Specialty Start Date End Date Balaji Quinones MD 230 [place], [place] [phone] PCP - General Internal Medicine 11/25/13 Birgit Franklin, Quentin [address] [place] [address] [place] [address] Pharmacist Internal Medicine 06/06/24 documented as of this encounter
--- OUTSIDE RECORDS SUMMARY | 2024-10-22 16:58 | XMS_ITS | Encounter Summary ---
Author Organization [employer] Address 75 [facility] 7t [place] [address] Care Team Providers Care Middleware Administrator Name Role Phone Balaji Quinones MD Primary Care Provide r Kristi Giles PharmD Unavailable + Birgit Franklin PharmD Unavailable [phone] Reason for Visit * Reason Comments Med Refill Encounter Details Date Type Department Care Team (Late st Contact Info) Description 01/28/2023 Refill [facility] 230 [place] [address] Balaji Quinones MD 230 [place] [address] Social History Tobacco Use Types Packs/Day Years [...] 10/29/2024 10:30 AM EDT Medication Management [facility] MEDICINE [address] [place] [address] Birgit Franklin PharmD 230 [place], [place] documented as of this encounter Goals [...] on filedocumented in this encounter Care Teams Middleware Administrator Relationship Specialty Start Date End Date Balaji Quinones MD [address] [place] [address] PCP - General Internal Medicine 11/25/13 Kristi Giles PharmD [address] [place] [address] Pharmacist Internal Medicine 01/30/22 06/05/24 Birgit Franklin PharmD [address] [place] [address] Pharmacist Internal Medicine 06/06/24 documented as of this encounter
--- OUTSIDE RECORDS SUMMARY | 2024-10-22 16:58 | XMS_ITS | Encounter Summary ---
Author Organization [employer] Address 75 [facility] 7t [place] [address] Care Team Providers Care Brim Stretcher Name Role Phone Balaji Quinones MD Primary Care Provide r Kristi Giles PharmD Unavailable + Birgit Franklin PharmD Unavailable [phone] Reason for Visit * Reason Comments Med Refill Encounter Details Date Type Department Care Team (Late st Contact Info) Description 01/30/2023 Refill [facility] 230 [place] [address] Balaji Quinones MD 230 [place] [address] Social History Tobacco Use Types Packs/Day Years [...] Description 10/29/2024 10:30 AM EDT Medication Management [facility] 230 [place] [address] Birgit Franklin PharmD 230 [place] [address] documented as of this encounter Goals Goal [...] on filedocumented in this encounter Care Teams Brim Stretcher Relationship Specialty Start Date End Date Balaji Quinones MD 230 [place] [address] PCP - General Internal Medicine 11/25/13 Kristi Giles PharmD 230 [place] [address] Pharmacist Internal Medicine 01/30/22 06/05/24 Birgit Franklin PharmD 230 [place] [address] Pharmacist Internal Medicine 06/06/24 documented as of this encounter
--- OUTSIDE RECORDS SUMMARY | 2024-10-22 16:58 | XMS_ITS | Encounter Summary ---
Author Organization [employer] Address [address] [facility] [address] [place] [address] Care Team Providers Care Sap Crm Developer Name Role Phone Balaji Quinones MD Primary Care Provide r Kristi Giles PharmD Unavailable + Birgit Franklin PharmD Unavailable [phone] Reason for Visit * Reason Comments Med Refill Encounter Details Date Type Department Care Team (Late st Contact Info) Description 10/27/2022 Refill [facility] [address] [place] [address] Clau Pascual ANP [address] [place] [address] Tinea pedis of both feet Social History [...] 10/29/2024 10:30 AM EDT Medication Management [facility] [address] [place] [address] Birgit Franklin PharmD [address] [place] [address] documented as of this encounter Goals Goal [...] feet documented in this encounter Care Teams Sap Crm Developer Relationship Specialty Start Date End Date Balaji Quinones MD [address] [place] [address] PCP - General Internal Medicine 11/25/13 Kristi Giles PharmD [address] [place] [address] Pharmacist Internal Medicine 01/30/22 06/05/24 Birgit Franklin PharmD [address] [place] [address] Pharmacist Internal Medicine 06/06/24 documented as of this encounter
--- OUTSIDE RECORDS SUMMARY | 2024-10-22 16:58 | XMS_ITS | Encounter Summary ---
Author Organization [employer] Address [address] [place] [address] Care Team Providers Care Inseminator Name Role Phone Balaji Quinones MD Primary Care Provide r Birgit Franklin PharmD Unavailable [phone] Reason for Visit * Reason Onset Date Comments chart prep 10/20/2024 Encounter Details Date Type Department Care Team ([facility] st Contact Info) Description 10/20/2024 Telephone [facility] [address] [place] [address] Balaji Quinones MD [address] [place], [place] [phone] chart prep Social History Tobacco Use Types Packs/Day Years [...] encounter Miscellaneous Notes * Telephone Encounter - Sueleln Randall [place] - 10/20/2024 11:07 AM EDT Chart Prep Labs: not done Images: done Screenings: Foot Exam Vaccines due: Covid Due and Flu Due Referrals: Completed Overdue care gaps: A1C and Glucose documented in this encounter Plan of Treatment Upcoming Encounters Date Type Department Care Team (Late st Contact Info) Description 10/29/2024 10:30 AM EDT Medication Management [facility] [address] [place] [address] Birigt Franklin PharmD [address] [place] [address] documented as of this encounter Goals Goal [...] documented as of this encounter Care Teams Inseminator Relationship Specialty Start Date End Date Balaji Quinones MD [address] [place] [address] PCP - General Internal Medicine 11/25/13 Birgit Franklin PharmD [address] [place] [address] Pharmacist Internal Medicine 06/06/24 documented as of this encounter
--- OUTSIDE RECORDS SUMMARY | 2024-10-22 16:59 | XMS_ITS | Clinical Summary ---
Author Organization [employer] Address [address] [place] [address] Care Team Providers Care Store Stocker Name Role Phone Balaji Quinones MD Primary Care Provide r Birgit Franklin PharmD Unavailable [phone] Allergies No known active allergies Medications sertraline [...] mouth in the morning. 90 tablet Active Blood Pressure Monitoring (Omron 3 Series [...] stripIndications: Type 2 diabetes mellitus with hyperlipidemia (CMS/HCC) (CMS/HCC) TEST BLOOD SUGAR ONCE DAILY 100 each 11 12/28/19 24 Active TRUEplus Lancets 33G miscIndications:T ype 2 diabetes mellitus with hyperlipidemia ([facility]/HCC) ([facility]) TEST BLOOD SUGAR ONCE DAILY ICD10= 100 each 12/28/19 24 Active metFORMIN (Glucophage) 1000 MG tabletIndications :Type 2 diabetes mellitus without complication, unspecified whether usp insulin use ([facility]) TAKE 1 TABLET BY MOUTH [...] complication, unspecified whether intermediate manager insulin use ([facility]) Take 1 tablet (45 mg) by mouth Once per day. 90 tablet 3 02/13/19 25 Active Petrolatum 42 % ointment APPLY TO THE AFFECTED AREA(S) TOPICALLY TWICE DAILY 454 g 5 04/18/19 25 Active Alcohol Swabs (Alcohol Prep) 70 % pads USE DIRECTED TO TEST BLOOD SUGAR 100 each 05/07/19 25 Active glipiZIDE XL (Glucotrol XL) 5 MG 24 hr tabletIndications :Type 2 diabetes mellitus without complication, unspecified whether intermediate manager insulin use ([facility]) TAKE 1 TABLET BY MOUTH EVERY DAY WITH BREAKFAST, DO NOT BREAK, CRUSH, DISSOLVE OR CHEW 90 tablet 1 05/15/19 25 Active FT Calcium 600 MG tablet Take 1 tablet by mouth 2 times daily. 05/15/19 25 Active finasteride (Proscar) 5 MG tablet Take 1 tablet by mouth Once per day. 04/04/19 25 Active aspirin (Aspirin Low Dose) 81 MG EC tablet Take 1 tablet (81 mg) by mouth in the morning. 90 tablet 2 06/24/19 25 Active polyvinyl alcohol (Liquifilm Tears) 1.4 % ophthalmic solutionIndicatio ns:Dry eyes PLACE 1 DROP IN EACH EYE THREE TO FOUR TIMES DAILY 15 mL 2 07/02/19 25 Active abiraterone (Zytiga) 250 MG chemo tablet Take 1,000 mg by mouth Once per day. 07/02/19 25 Active triamcinolone (Kenalog) 0.025 % creamIndications: Dermatitis of lower extremity APPLY 1 GRAM TOPICALLY TO AFFECTED AREA(S) TWICE DAILY DIRECTED 60 g 1 08/08/19 25 Active ketoconazole (NIZOral) 2 % creamIndications: Tinea pedis of both feet APPLY 1 GRAM TOPICALLY TO AFFECTED AREA(S) EVERY MORNING 30 g 1 08/22/19 25 Active amLODIPine (Norvasc) 10 MG tabletIndications :Primary hypertension Take 1 tablet (10 mg) by mouth in the morning. 90 tablet 1 09/17/19 25 Active carvedilol (Coreg) 3.125 MG tabletIndications :Primary hypertension Take 1 tablet (3.125 mg) by mouth with breakfast and with evening meal. 180 tablet 1 10/22/19 25 Active carvedilol (Coreg) 3.125 MG tablet Take 1 tablet (3.125 mg) by mouth with breakfast and with evening meal. 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 His porikamr-kf-itk brought him to [facility]. Denied headache, chest pain, SOB, n/v/d, [...] follow up scheduled with Dr. Peres his biomedical analytical scientist Seen by Neurology who ordered Brain MRI that showed: No acute brain abnormality. No gross abnormal enhancing lesion. 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 Assessment & Plan (02/14/2024 4:19 PM EST): Pt seen at our [facility] 12/28/[address] Lloyd Puckett After pt was walking on sidewalk, felt sudden dizzy, unable to describe dizziness, and the next thing he remembers is being on the ground with facial injuries, abrasions on knees and left wrist. His gxfkiqdh-xu-feb brought him to [facility]. Denied headache, chest pain, SOB, n/v/d, or recent illness. has many year h/o similar recurrent episodes of dizziness that he cannot describe, occasionally falls. ECG today shows sinus arrythmia, IVCD, PACs. Pt tells me he already has a follow up scheduled with Dr. Peres his biomedical analytical scientist Plan: Obtain ECHO, ECG, EEG. CT of brain Cardiology and Neurology Consult Prostate cancer, primary, wi metastasis from prostate to other site 08/21/2023 Assessment & Plan (10/21/2024 2:18 PM EDT): Patient here for a follow up Pt [...] primary neoplasm. Left external iliac and femoral lymphadenopathy as described. Urologist started him on Abiraterone Will continue follow with urology Assessment & Plan (07/22/2024 1:53 PM EDT): Patient here for a follow up [...] followed by Urology, who last saw him 07/01/2024 Pt had a prostate MRI that showed: MR/MR Prostate wo/w con IMPRESSION: 1. No discrete focus of abnormal signal intensity is identified in the prostate gland to correspond to the patient's primary neoplasm. 2. Left external iliac and femoral lymphadenopathy as described. Urologist started him on Abiraterone Will continue follow with urology Assessment & Plan (05/15/2024 11:07 AM EDT): [...] has appointment for an ultrasound coming up [facility] care 05/11/2022 Assessment & Plan (05/15/2024 10:56 [...] of 3.9 cm. Pt was referred to [facility] Cardiovascular surgeons. He was seen 11/06/2016 [...] of 3.9 cm. Pt was referred to [facility] Cardiovascular surgeons. He was seen 11/06/2016 [...] of 3.9 cm. Pt was referred to [facility] Cardiovascular surgeons. He was seen 11/06/2016 [...] of 3.9 cm. Pt was referred to [facility] Cardiovascular surgeons. He was seen 11/06/2016 [...] of 3.9 cm. Pt was referred to [facility] Cardiovascular surgeons. He was seen 11/06/2016 [...] is being followed by psych. Hypertension 07/07/2011 Assessment & Plan (10/21/2024 2:20 PM EDT): Pt here for a f/u BP remains controlled He is on a regimen of: Norvasc 10 mg po daily,, Carvedilol 3.125 mg po BID ( Rx by Cardiology ) and Lisinopril 40 mg po daily. Plan: continue with [...] encouraged about medication compliance. Assessment & Plan (07/22/2024 1:50 PM EDT): Pt here for a f/u BP remains controlled He is on a regimen of: Norvasc 10 mg po daily,, Carvedilol 3.125 mg po BID ( Rx by Cardiology ) and Lisinopril 40 mg po daily. Plan: continue with [...] encouraged about medication compliance. Assessment & Plan (05/15/2024 11:08 AM EDT): [...] weight loss. Hyperlipidemia 07/07/2011 Assessment & Plan (10/21/2024 2:20 PM EDT): Pt here for a f/u [...] goal for weight loss. Assessment & Plan (07/22/2024 1:51 PM EDT): Pt here for a f/u [...] goal for weight loss. Assessment & Plan (02/14/2024 4:16 PM EST): [...] weight loss. Type 2 diabetes mellitus 07/07/2011 Assessment & Plan (10/21/2024 2:19 PM EDT): Pt here for a f/u [...] Follow-up in 4 months Assessment & Plan (07/22/2024 1:50 PM EDT): Pt here for a f/u regarding his DM Today controlled He is on a regimen of: Metformin 1000 mg po BID, Glipizide XL 5mg po daily and Actos 45 mg po daily Hgb A1c 07/22/2024: 6.4 Eye exam done by Dr. Hopper Microalbumin checked on: 06/19/2023 was: 15.3 Pt on an DANETTE inhibitor. Foot check risk of zero Pt reports compliance with ASA 81 mg po daily Plan: continue current regimen Pt advised to: adhere to diabetic diet Contine to monitor blood sugars regularly Check feet on a daily basis. Follow-up in 4 months Assessment & Plan (05/15/2024 10:57 AM EDT): [...] Encounters Date Type Department Care Team Description 10/21/2024 2:15 PM EDT Office Visit [address] [address] Balaji Quinones MD Type 2 diabetes mellitus without complication, without long-term current use of insulin (CMS/HCC) (Primary Dx); Prostate cancer, primary, with metastasis from prostate to other site (CMS/HCC); Primary hypertension; Mixed hyperlipidemia 10/21/2024 Travel 10/20/[address] [address] Balaji Quinones MD chart prep 10/14/2024 Orders Only [address] [address] Raquel Kirk, RN Screening for tuberculosis 10/06/[address] [address] Balaji Quinones MD Med Refill 10/06/2024 Refill [facility] [address] [place] [address] Balaji Quinones MD 09/23/2024 Telephone [facility] [address] [place] [address] Balaji Quinones MD Durable Medical Equipment 09/16/2024 Refill [facility] [address] [place] [address] Balaji Quinones MD Primary hypertension 09/04/2024 Orders Only [facility] External Provider, [facility] 08/21/2024 Refill [facility] [address] [place] [address] Balaji Quinones MD Tinea pedis of both feet 08/06/2024 Refill [facility] [address] [place] [address] Balaji Quinones MD Dermatitis of lower extremity 08/04/2024 3:15 PM EDT Office Visit [facility] [address] [place] [address] Abdiel, Kaci, OD Presbyopia (Primary Dx) 07/22/2024 1:30 PM EDT Office Visit [facility] [address] [place] [address] Balaji Quinones MD Primary hypertension (Primary Dx); Type 2 diabetes mellitus without complication, without long-term current use of insulin ([facility]); Mixed hyperlipidemia; Prostate cancer, primary, with metastasis from prostate to other site ([facility]) 07/22/2024 Travel from Last 3 Months Immunizations Immunization Administration [...] Mass Index 22.82 10/21/2024 1:58 PM EDT Plan of Treatment Upcoming Encounters Date Type Department Care Team (Late st Contact Info) Description 10/29/2024 10:30 AM EDT Medication Management [facility] [address] [place] [address] Birgit Franklin, PharmD [address] [place] [address] Health Maintenance Due Date Last Done Comments CT Colonography 1955 FIT DNA/Cologuard 1955 FIT 1955 FOBT 1955 Sigmoidoscopy 1955 Diabetes: Foot Exam 1964 Diabetes: Urine Protein Screening 06/18/2024 06/19/2023, 01/12/2021, 11/03/2019 Lipid Panel 06/18/2024 06/19/2023, 06/13, 08/16/2021, Additional history exists COVID-19 Vaccine ( season) 2024 11/22/2023, 03/25/2021, 09/21/2020, Additional history exists Influenza Vaccine (#1) 2024 , 12/12/2022, 01/03/2022, Additional history exists Diabetes: Hemoglobin A1C 01/20/2025 025, 07/22/2024, 02/14/2024, Additional history exists Alcohol/Substance Use Screening 02/13/2025 02/14/2024 Depression Screening 05/15/2025 05/15/2024, 05/16/19 25 SDOH Screening 05/15/2025 05/15/2024 Tobacco Screening 10/21/2025 10/21/2024 Eye Exam 05/27/2026 05/27/2024, 05/13, 05/27/2024, Additional history exists Colonoscopy 07/11/2027 07/10/2017 Colorectal Cancer Screening 07/11/2027 RSV Patients and Patients Aged 60 years or older (1 - 1-dose 75+ series) 2029 DTaP/Tdap/Td Vaccines (3 - Td or Tdap) 07/22/2031 07/21/2021, 10/04/2011, 05/08/2006 Pneumococcal Vaccine: 50+ Years Discontinued 05/15/2022 Hepatitis C Screening Completed 07/05/2022 Zoster Vaccines Completed 07/17/2022, 05/15/2022 HIB Vaccines Aged Out No longer eligi [...] 124/68(2024 1:58 PM EDT) No Kristi Giles, PharmD Note: Maintain BP [...] 1:59 PM EDT) No Kristi Giles PharmD Procedures Procedure Name Priority Date/Time Associated Diagnosis Comments BD DEXA AXIAL Routine 10/22/2024 2:00 PM EDT POCT GLYCATED HEMOGLOBIN, TOTAL Routine 10/21/2024 1:59 PM EDT Type 2 diabetes mellitus without complication, without long-term current use of insulin ([facility]) POCT GLUCOSE Routine 10/21/2024 1:58 PM EDT Type 2 diabetes mellitus without complication, without long-term current use of insulin ([facility]) CT CHEST WO CONTRAST Routine 09/04/2024 9:08 AM EDT POCT GLYCATED HEMOGLOBIN, TOTAL Routine 07/22/2024 1:33 PM EDT Type 2 diabetes mellitus without complication, without long-term current use of insulin ([facility]) POCT GLUCOSE Routine 07/22/2024 1:26 PM EDT Type 2 diabetes mellitus without complication, without long-term current use of insulin ([facility]) LIPID PANEL WITH REFLEX TO DIRECT LDL [...] Recently Relevant to Health Maintenance Results * BD DEXA Axial (10/22/2024 2:00 PM EDT) Anatomical Region Laterality Modality Body Radiographic Mirta ging 10/22/2024 2:00 PM EDT Narrative 10/22/2024 3:08 PM EDT [facility]'[address] [place] [address] Mammography Report Signed Patient: Paul Alonso MR#: [id number] 33 : 1955 Acct:[id number] Age/Sex: 69 / M ADM Date: 10/22/24 Loc: HO.MAMMO Attending Dr: Lm Rico MD Ordering Physician: Lm Rico MD Results: Date of Service: 10/22/24 Follow Up: Procedure(s): XR DEXA axial skeleton Accession Number(s): [id number] cc: Lm Rico MD; Balaji Sanderson MD EXAMINATION: DXA BONE DENSITY AXIAL HISTORY: M85.80 - Other specified disorders of bone density and structure, unspecified... TECHNIQUE: Snapstream Dual energy absorptiometry (DEXA) of the lumbar spine, total left hip, and femoral neck was performed. COMPARISON: There are no prior studies for comparison. FINDINGS: The bone mineral density of the lumbar spine is 0.822 g/cm2, corresponding to a T-score of -3.3, and a Z-score of -2.1. This is indicative of osteoporosis. The bone mineral density of the left total hip is 0.822 g/cm2, corresponding to a T-score of -1.9, and a Z-score of -0.8. This is indicative of osteopenia. The bone mineral density of the left femoral neck is 0.756 g/cm2, corresponding to a T-score of -2.4, and a Z-score of -0.7. This is indicative of osteopenia. FRACTURE RISK: The FRAX index suggests a risk of major osteoporotic fracture of 4.9%, and of hip fracture 1.6%. MM/XR DEXA axial skeleton IMPRESSION: Based on bone mineral density, and according to World Health Organization (WHO) criteria, the diagnosis is consistent with osteoporosis. Statistically, 68% of repeat scans fall within 1 SD (+/- 0.010 g/cm2 for AP spine L1-L4) and 1 SD (+/- 0.012 g/cm2 for femur total) FRAX is a trademark of the [employer]'s [place] [employer] Metabolic [employer] Disease, a World Health Organization (WHO) Collaborating Center. Electronically signed by: Bladimir Gupta MD 10/22/2024 03:05 PM EDT Dictated By: Bladimir Gupta MD Signed By: <Electronically signed by Bladimir Gupta MD in OV> 10/22/24 1505 DD/ 1400 TD/TT: 10/22/24 1430 Franchise Specialist: Procedure Note Donotuseinterpreter, Image - 10/22/2024 [facility] [address] [place] [address] Mammography Report Signed Patient: Jayda Alonso#: [id number] 33 : 5Acct:[id number] Age/Sex: 69 / MADM Date: 10/22/24 Loc: JACK Attending Dr: Lm Rico MD Ordering Physician: Lm Ricoesults: Date of Service: 10/22/24Follow Up: Procedure(s): XR DEXA axial skeleton Accession Number(s): [id number] cc: Lm Rico MD; Balaji Sanderson MD EXAMINATION: DXA BONE DENSITY AXIAL HISTORY: M85.80 - Other specified disorders of bone density and structure, unspecified... TECHNIQUE: Snapstream Dual energy absorptiometry (DEXA) of the lumbar spine, total left hip, and femoral neck was performed. COMPARISON: There are no prior studies for comparison. FINDINGS: The bone mineral density of the lumbar spine is 0.822 g/cm2, corresponding to a T-score of -3.3, and a Z-score of -2.1. This is indicative of osteoporosis. The bone mineral density of the left total hip is 0.822 g/cm2, corresponding to a T-score of -1.9, and a Z-score of -0.8. This is indicative of osteopenia. The bone mineral density of the left femoral neck is 0.756 g/cm2, corresponding to a T-score of -2.4, and a Z-score of -0.7. This is indicative of osteopenia. FRACTURE RISK: The FRAX index suggests a risk of major osteoporotic fracture of 4.9%, and of hip fracture 1.6%. MM/XR DEXA axial skeleton IMPRESSION: Based on bone mineral density, and according to World Health Organization (WHO) criteria, the diagnosis is consistent with osteoporosis. Statistically, 68% of repeat scans fall within 1 SD (+/- 0.010 g/cm2 for AP spine L1-L4) and 1 SD (+/- 0.012 g/cm2 for femur total) FRAX is a trademark of the [employer] [place] [employer] Metabolic Bone Disease, a World Health Organization (WHO) Collaborating Center. Electronically signed by: Bladimir Gupta MD 10/22/2024 03:05 PM EDT Dictated By: Bladimir Gupta MD Signed By: <Electronically signed by Bladimir Gupta MD in OV> 10/22/24 1505 DD/ 1400 TD/TT: 10/22/24 1430 Franchise Specialist: [facility] External Provider IMG DXA PROCEDURES Final Result * (ABNORMAL) POCT Hgb A1c (10/21/2024 1:59 PM EDT) Only the most recent of2 resultswithin the time period is included. Hemoglobin A1C 6.6(A) 4.0 - 5.7 % QC Media Lot # [id number] Lot# Expiration Date [id number] Blood 10/21/2024 1:59 PM EDT Balaji Donnelly MD POINT OF CARE TEST EN TER/EDIT ORDERABLES Final Result * (ABNORMAL) POCT Glucose (10/21/2024 1:58 PM EDT) Only the most recent of2 resultswithin the time period is included. Glucose Blood, POC 206(A) 60 - 200 mg/dL QC Media Lot # [id number] Lot# Expiration Date [id number] Blood Capillary blood specimen / Unknown 10/21/2024 1:58 PM EDT Balaji Donnelly MD POINT OF CARE TEST EN TER/EDIT ORDERABLES Final Result * CT Chest w/o Contrast (09/04/2024 9:08 AM EDT) Anatomical Region Laterality Modality Body, Chest Computed Tomogra phy 09/04/2024 9:08 AM EDT Narrative 09/04/2024 9:53 AM EDT [place] [address] CT Scan Report Signed Patient: Paul Alonso MR#: [id number] 33 : 1955 Acct:[id number] Age/Sex: 69 / M ADM Date: 09/04/24 Loc: HO.CT Attending Dr: Ki Castaneda MD Ordering Physician: Ki Castaneda MD Date of Service: 09/04/24 Procedure(s): CT chest wo IV con Accession Number(s): [id number] cc: GrimesBalaji Shepherd MD; Ki Castaneda MD Report Number: [id number]: Total DLP = 91.00 mGy-cm EXAMINATION: CT CHEST WITHOUT IV CONTRAST INDICATION: R59.0 - Localized enlarged lymph nodes COMPARISON: Comparison is made with the prior examination dated 04/03/2024. TECHNIQUE: Helical CT scan of the chest was performed without intravenous contrast. Coronal and sagittal reformatted images were generated and reviewed. This CT exam was performed with one or more of the following dose reduction techniques: automated exposure control, adjustment of the mA and/or kV according to patient size, use of iterative reconstruction technique. DLP: 91 mGy-cm CHEST: The examination is limited by patient motion. THYROID: The thyroid is unremarkable. LUNGS: There are multiple 3-4 mm pulmonary nodules in the right upper lobe (series 5, images 40 and 44), in the right lower lobe (series 5, image 74), in the left upper lobe (series 5, images 25 and 56), and in the left lower lobe (series 5, image 76). Comparison with the prior study is limited due to respiratory motion artifact on both examinations. MEDIASTINUM: The previously seen enlarged paratracheal node is smaller in size measuring 2.8 x 1.8 cm (previously 3.7 x 3.6 cm). AVRIL: Evaluation of the hilar regions is limited by lack of intravenous contrast material. CARDIOVASCULATURE: The heart is normal in size. There is no pericardial effusion. There is dilatation of the ascending thoracic aorta measuring up to 4.0 cm and the distal aortic arch measuring up to 3.9 cm in diameter. DEGREE OF CORONARY CALCIFICATION: moderate PLEURA: There is no pleural effusion. No pneumothorax. MAIN AIRWAYS: The mainstem bronchi and proximal branches are patent. AXILLA: There is no axillary lymphadenopathy. BONES AND SOFT TISSUES: Unremarkable UPPER ABDOMEN: The visualized portions of the liver, spleen, and adrenals have an unremarkable unenhanced appearance. CT/CT chest wo IV con IMPRESSION: 1. Interval decrease in size of the previously noted enlarged right paratracheal lymph node. 2. Multiple 3-4 mm bilateral pulmonary nodules. Follow-up is recommended. Electronically signed by: Bladimir Gupta MD 09/04/2024 09:50 AM EDT RP Dictated By: Bladimir Gupta MD Signed By: <Electronically signed by Bladimir Gupta MD in OV> 09/04/24 0950 DD/ 0908 TD/TT: 09/04/24 0931 Franchise Specialist: Procedure Note Donotuseinterpreter, Image - 09/04/[address] [address] [address] Scan Report Signed Patient: Jayda Alonso#: [id number] [birth year] : 5Acct:[id number] Age/Sex: 69 / MADM Date: 09/04/24 Loc: HO.CT Attending Dr: Ki Castaneda MD Ordering Physician: Ki Castaneda MD Date of Service: 09/04/24 Procedure(s): CT chest wo IV con Accession Number(s): [id number] cc: Balaji Sanderson MD; Ki Castaneda MD Report Number: [id number]: Total DLP = 91.00 mGy-cm EXAMINATION: CT CHEST WITHOUT IV CONTRAST INDICATION: R59.0 - Localized enlarged lymph nodes COMPARISON: Comparison is made with the prior examination dated 04/03/2024. TECHNIQUE: Helical CT scan of the chest was performed without intravenous contrast. Coronal and sagittal reformatted images were generated and reviewed. This CT exam was performed with one or more of the following dose reduction techniques: automated exposure control, adjustment of the mA and/or kV according to patient size, use of iterative reconstruction technique. DLP: 91 mGy-cm CHEST: The examination is limited by patient motion. THYROID: The thyroid is unremarkable. LUNGS: There are multiple 3-4 mm pulmonary nodules in the right upper lobe (series 5, images 40 and 44), in the right lower lobe (series 5, image 74), in the left upper lobe (series 5, images 25 and 56), and in the left lower lobe (series 5, image 76). Comparison with the prior study is limited due to respiratory motion artifact on both examinations. MEDIASTINUM: The previously seen enlarged paratracheal node is smaller in size measuring 2.8 x 1.8 cm (previously 3.7 x 3.6 cm). AVRIL: Evaluation of the hilar regions is limited by lack of intravenous contrast material. CARDIOVASCULATURE: The heart is normal in size. There is no pericardial effusion. There is dilatation of the ascending thoracic aorta measuring up to 4.0 cm and the distal aortic arch measuring up to 3.9 cm in diameter. DEGREE OF CORONARY CALCIFICATION: moderate PLEURA: There is no pleural effusion. No pneumothorax. MAIN AIRWAYS: The mainstem bronchi and proximal branches are patent. AXILLA: There is no axillary lymphadenopathy. BONES AND SOFT TISSUES: Unremarkable UPPER ABDOMEN: The visualized portions of the liver, spleen, and adrenals have an unremarkable unenhanced appearance. CT/CT chest wo IV con IMPRESSION: 1. Interval decrease in size of the previously noted enlarged right paratracheal lymph node. 2. Multiple 3-4 mm bilateral pulmonary nodules. Follow-up is recommended. Electronically signed by: Bladimir Gupta MD 09/04/2024 09:50 AM EDT Dictated By: Bladimir Gupta MD Signed By: <Electronically signed by Bladimir Gupta MD in OV> 09/04/24 0950 DD/ 0908 TD/TT: 09/04/24 0931 Franchise Specialist: [facility] External Provider IMG CT PROCEDURES Edited Result - Final * (ABNORMAL) Lipid Panel with Reflex to Direct LDL (06/19/2023 1:23 PM EDT) Triglycerides 158(H) <150 mg/dL [facility] Comment:Desirable Triglyceri de: less than 150 mg/dLBorderline High Triglyceride 150-199 mg/dLHigh Triglyceride: 200-499 mg/dLVery High Triglyceride: greater than or equal to 5OO mg/dL Cholesterol 127 <200 mg/dL [facility] Comment:Desirable Cholestero l: less than 200 mg/dLBorderline High Cholesterol: 200-239 mg/dLHigh Cholesterol: greater than 239 mg/dL LDL Cholesterol Calculated 66 <100 mg/dL [facility] Comment:Desirable LDL: less than 100 mg/dLNear Optimal/Above Optimal LDL: 110- 129 mg/dLBorderline High LDL: 130-159 mg/dLHigh LDL: 160-189 mg/dLVery High LDL: greater than or equal to 190 mg/dL HDL Cholesterol 30(L) >40 mg/dL [facility] Comment:Desirable HDL: great er than 40 mg/dL Note: This HDL assay may give artificially low results in patients with liver disease. Blood 06/19/2023 1:23 PM EDT 06/19/2023 4:12 PM EDT Balaji Donnelly MD LAB BLOOD ORDERABLES Final Result Performing Organization Address [facility] Co de Phone Number [facility] [address] [place] [phone] * Albumin, Random Urine W/Creatinine (06/19/2023 12:00 AM EDT) Creatinine, Urine 137.18 mg/dL [facility] Microalbumin Urine 21.0 mg/L [facility] Microalbum Creatinine Ratio Ur 15.3 <30 ug/mg cr [facility] Comment:Albumin/Creatinine R atio Reference Ranges: Normal: < 30 ug/mg creatinine Microalbuminuria: 30 - 300 ug/mg creatinineClinical Albuminuria: > 300 ug/mg creatinine Urine (Urine, Random) 06/19/2023 06/19/2023 Balaji Donnelly MD LAB URINE ORDERABLES Final Result Performing Organization Address [facility] Co de Phone Number [facility] [address] [place] [phone] * Hepatitis C Antibody with Reflex to HCV, RNA, Quantitative, Real-Time PCR (07/05/2022 8:13 AM EDT) Hepatitis C Antibody NON-REACT MADDY NON-REACT MADDY 51credit.comt Index 0.04 <1.00 Collect Comment: HCV antibody was non-reactive. There is no laboratory evidence of HCV infection. In most cases, no further action is required. However, if recent HCV exposure is suspected, a test for HCV RNA (test code 02475) is suggested. For additional information please refer to http://education.Teach 'n Go/faq/NNM57q5 (This link is being provided for informational/ educational purposes only.) Blood Venous blood specimen / Unknown 07/05/2022 8:13 AM EDT 07/05/2022 8:14 AM EDT Narrative [facility] - 07/06/2022 11:54 AM EDT FASTING:YES FASTING: YES Balaji Donnelly MD LAB BLOOD ORDERABLES Final Result [facility] [address], [place] [address] [place] [employer] [address] [place] [address] * Colonoscopy (07/10/2017) Pathologist [facility] Colonoscopy Normal Normal 07/10/2017 Shikha Morel - 07/10/2017 3:47 PM EDT Recommended 10 year follow up ( [facility] ) Historical Provider HEALTH MAINTENANCE Final Result from Last 3 Months or Most Recently Relevant to Health Maintenance Insurance [facility] STANDARD MEDICARE Care Teams Store Stocker Relationship Specialty Start Date End Date Balaji Quinones MD [address] [place] [address] PCP - General Internal Medicine 11/25/13 Birgit Franklin PharmD [address] [place] [address] Pharmacist Internal Medicine 06/06/24
== END 2024-10-22 13:53 | disposition home or self-care (01) ==
LOC: HO.MAMMO 13:52
PROVIDERS: PCP Internal Medicine; Visit Provider Urology
DX: Z13.820 Encounter for screening for osteoporosis (principal); M85.89 Other specified disorders of bone density and structure, multiple sites; C61 Malignant neoplasm of prostate; C77.1 Secondary and unspecified malignant neoplasm of intrathoracic lymph nodes
CPT/HCPCS: 77080

== ENCOUNTER → 2024-10-22 13:56 | Outpatient (BNV) | payer MEDICARE, MEDICAID, SELFPAY | PROVIDERS: PCP Internal Medicine; Visit Provider Radiology Diagnostic Radiology | DX: M85.80 Other specified disorders of bone density and structure, unspecified site (principal) | CPT/HCPCS: 77080 ==

== ENCOUNTER 2024-11-03 11:17 | Outpatient (REF) | payer MEDICARE, MEDICAID, SELFPAY ==
[2024-11-03 13:46] LABS: Alanine Aminotransferase 13 U/L (0-40); Albumin Level 4.2 g/dL (3.5-5.0); Alkaline Phosphatase 46 U/L (39-117); Anion Gap 10 (12-20); Aspartate Amino Transferase 20 U/L (5-37); Blood Urea Nitrogen 11 mg/dL (9-16); Calcium 9.0 mg/dL (8.4-10.2); Carbon Dioxide 30 mmol/L (22-29); Chloride 99 mmol/L (96-108); Cholesterol 129 mg/dL (<200); Estimated Glomerular Filt Rate > 60; HDL Cholesterol 34 mg/dL (>40); Potassium 3.8 mmol/L (3.3-5.1); Sodium 135 mmol/L (135-145); Total Protein 6.7 g/dL (6.5-8.0); Triglycerides 148 mg/dL (<150)
--- OUTSIDE RECORDS SUMMARY | 2024-11-03 13:59 | XMS_ITS | Encounter Summary ---
Author Organization [employer] Address [address] [facility] 7t [place] [address] Care Team Providers Care Special Collections Librarian Name Role Phone Balaji Quinones MD Primary Care Provide r Kristi Giles PharmD Unavailable + Birgit Franklin PharmD Unavailable [phone] Reason for Visit * Reason Comments Med Refill Encounter Details Date Type Department Care Team (Late st Contact Info) Description 04/17/2022 Refill [facility] [address] [place] [address] Brook Guerrero MD [address] [place] [address] Other chronic pain Social History Tobacco Use [...] Care Team (Late st Contact Info) Description 04/28/2025 10:30 AM EDT Medication Management [facility] [address] [place], [place] [phone] Birgit Franklin PharmD [address] [place] [address] documented as of this encounter Goals Goal Patient Goal Type Associated Problems Recent Progress Patient-Stated? Author Blood Pressure < 140/90 Blood Pressure 122/62(2024 11:26 AM EDT) No Kristi Giles PharmD Note: Maintain BP less than 140/90 Record your blood pressure once per day Blood Pressure No Kristi Giles PharmD Note: Check BP daily Follow the DASH diet Diet No Kristi Giles PharmD Note: Look for foods that are low sodium. documented as of this encounter Visit Diagnoses Diagnosis Other chronic pain documented in this encounter Care Teams Special Collections Librarian Relationship Specialty Start Date End Date Balaji Quinones MD [address] [place] [address] PCP - General Internal Medicine 11/25/13 Kristi Giles PharmD [address] [place] [address] Pharmacist Internal Medicine 01/30/22 06/05/24 Birgit Franklin PharmD [address] [place] [address] Pharmacist Internal Medicine 06/06/24 documented as of this encounter
--- OUTSIDE RECORDS SUMMARY | 2024-11-03 13:59 | XMS_ITS | Encounter Summary ---
Author Organization [employer] Address 75 [facility] 7t [place] [address] Care Team Providers Care Manager Revenue Name Role Phone Balaji Quinones MD Primary Care Provide r Kristi Giles PharmD Unavailable + Birgit Franklin PharmD Unavailable [phone] Reason for Visit * Reason Comments Med Refill Encounter Details Date Type Department Care Team (Late st Contact Info) Description 12/30/2022 Refill [facility] 230 [place] [address] Balaji Quinones MD [address] [place] [address] Tinea pedis of both feet Social History [...] Description 04/28/2025 10:30 AM EDT Medication Management [facility] [address] [place] [address] Birgit Franklin PharmD [address] [place] [address] documented as of this encounter Goals Goal Patient Goal Type Associated Problems Recent Progress Patient-Stated? Author Blood Pressure < 140/90 Blood Pressure 122/62(2024 11:26 AM EDT) No Kristi Giles PharmD Note: Maintain BP less than 140/90 Record your blood pressure once per day Blood Pressure No Kristi Giles PharmD Note: Check BP daily Blood Pressure < 140/90 Blood Pressure Hypertension 122/62(2024 11:26 AM EDT) No Kristi Giles PharmD Follow the DASH diet Diet No Kristi Giles PharmD Note: Look for foods that are low sodium. documented as of this encounter Visit Diagnoses Diagnosis Tinea pedis of both feet documented in this encounter Care Teams Manager Revenue Relationship Specialty Start Date End Date Balaji Quinones MD [address] [place] [address] PCP - General Internal Medicine 11/25/13 Kristi Giles PharmD [address] [place] [address] Pharmacist Internal Medicine 01/30/22 06/05/24 Birgit Franklin PharmD [address] [place] [address] Pharmacist Internal Medicine 06/06/24 documented as of this encounter
--- OUTSIDE RECORDS SUMMARY | 2024-11-03 13:59 | XMS_ITS | Encounter Summary ---
Author Organization [employer] Address 75 [facility] 7t [place] [address] Care Team Providers Care Contour Path Tape Mill Operator Name Role Phone Balaji Quinones MD Primary Care Provide r Kristi Giles PharmD Unavailable + Birgit Franklin PharmD Unavailable [phone] Reason for Visit * Reason Comments Med Refill Encounter Details Date Type Department Care Team (Late st Contact Info) Description 05/11/[address] [facility] 230 [place] [address] Balaji Quinnoes MD 230 [place], [place] [phone] Swelling of right middle finger Social History [...] Description 04/28/2025 10:30 AM EDT Medication Management [facility] [address] [place] [address] Birgit Franklin PharmD [address] [place] [address] documented as of this encounter Goals Goal [...] finger documented in this encounter Care Teams Contour Path Tape Mill Operator Relationship Specialty Start Date End Date Balaji Quinones MD [address] [place] [address] PCP - General Internal Medicine 11/25/13 Kristi Giles PharmD [address] [place] [address] Pharmacist Internal Medicine 01/30/22 06/05/24 Birgit Franklin PharmD [address] [place] [address] Pharmacist Internal Medicine 06/06/24 documented as of this encounter
--- OUTSIDE RECORDS SUMMARY | 2024-11-03 13:59 | XMS_ITS | Encounter Summary ---
Author Organization [employer] Address [address] [facility] [address] 7t [place] [address] Care Team Providers Care Emt Driver Name Role Phone Balaji Quinones MD Primary Care Provide r Kristi Giles PharmD Unavailable + Birgit Franklin PharmD Unavailable [phone] Reason for Visit * Reason Comments Med Refill Encounter Details Date Type Department Care Team ([facility] st Contact Info) Description 04/19/2023 Refill [facility] [address] [place] [address] Balaji Quinones MD [address] [place] [address] Primary hypertension; Folliculitis Social History Tobacco Use [...] Description 04/28/2025 10:30 AM EDT Medication Management [facility] [address] [place] [address] Birgit Franklin PharmD [address] [place] [address] documented as of this encounter Goals Goal [...] documented as of this encounter Care Teams Emt Driver Relationship Specialty Start Date End Date Balaji Quinones MD [address] [place] [address] PCP - General Internal Medicine 11/25/13 Kristi Giles PharmD [address] [place] [address] Pharmacist Internal Medicine 01/30/22 06/05/24 Birgit Franklin PharmD [address] [place] [address] Pharmacist Internal Medicine 06/06/24 documented as of this encounter
--- OUTSIDE RECORDS SUMMARY | 2024-11-03 13:59 | XMS_ITS | Encounter Summary ---
Author Organization [employer] Address 75 [facility] 7t [place] [address] Care Team Providers Care Crop Quantitative Geneticist Name Role Phone Balaji Quinones MD Primary Care Provide r Kristi Giles PharmD Unavailable + Birgit Franklin PharmD Unavailable [phone] Encounter Details Date Type Department Care Team (Late st Contact Info) Description 09/08/2022 [facility] Health Information Management 230 [place] [address] Balaji Quinones MD [address] [place], [place] [phone] Social History Tobacco Use Types Packs/Day Years [...] Description 04/28/2025 10:30 AM EDT Medication Management [facility] 230 [place], [place] [phone] Birgit Franklin PharmD [address] [place] [address] documented as of this encounter Goals Goal [...] on filedocumented in this encounter Care Teams Crop Quantitative Geneticist Relationship Specialty Start Date End Date Balaji Quinones MD [address] [place] [address] PCP - General Internal Medicine 11/25/13 Kristi Giles PharmD [address] [place] [address] Pharmacist Internal Medicine 01/30/22 06/05/24 Birgit Franklin PharmD [address] [place] [address] Pharmacist Internal Medicine 06/06/24 documented as of this encounter
--- OUTSIDE RECORDS SUMMARY | 2024-11-03 13:59 | XMS_ITS | Encounter Summary ---
Author Organization [employer] Address [address] [facility] [address] 7t [place] [address] Care Team Providers Care Relationship Assoc Name Role Phone Balaji Quinones MD Primary Care Provide r Kristi Giles PharmD Unavailable + Birgit Franklin PharmD Unavailable [phone] Reason for Visit * Reason Comments Med Refill Encounter Details Date Type Department Care Team ([facility] st Contact Info) Description 06/11/2023 Refill [facility] [address] [place], [place] [phone] Balaji Quinones MD [address] [place] [address] Swelling of right middle finger Social History [...] Description 04/28/2025 10:30 AM EDT Medication Management [facility] 230 [place] [address] Birgit Franklin PharmD 230 [place] [address] documented as of this encounter Goals Goal [...] documented as of this encounter Care Teams Relationship Assoc Relationship Specialty Start Date End Date Balaji Quinones MD [address] [place] [address] PCP - General Internal Medicine 11/25/13 Kristi Giles PharmD [address] [place] [address] Pharmacist Internal Medicine 01/30/22 06/05/24 Birgit Franklin PharmD [address] [place] [address] Pharmacist Internal Medicine 06/06/24 documented as of this encounter
--- OUTSIDE RECORDS SUMMARY | 2024-11-03 13:59 | XMS_ITS | Encounter Summary ---
Author Organization [employer] Address [address] [facility] [address] 7t [place] [address] Care Team Providers Care Agricultural Specialist Name Role Phone Balaji Quinones MD Primary Care Provide r Kristi Giles PharmD Unavailable + Birgit Franklin PharmD Unavailable + Reason for Visit * Reason Comments Med Refill Encounter Details Date Type Department Care Team ([facility] st Contact Info) Description 06/25/2023 Refill [facility] [address] [place] [address] Balaij Quinones MD [address] [place], [place] [phone] Folliculitis Social History Tobacco Use Types Packs/Day [...] Description 04/28/2025 10:30 AM EDT Medication Management [facility] [address] [place] [address] Birgit Franklin PharmD [address] [place] [address] documented as of this encounter Goals Goal [...] as of this encounter Care Teams Agricultural Specialist Relationship Specialty Start Date End Date Balaji Quinones MD [address] [place] [address] PCP - General Internal Medicine 11/25/13 Kristi Giles PharmD [address] [place] [address] Pharmacist Internal Medicine 01/30/22 06/05/24 Birgit Franklin PharmD [address] [place] [address] Pharmacist Internal Medicine 06/06/24 documented as of this encounter
--- OUTSIDE RECORDS SUMMARY | 2024-11-03 13:59 | XMS_ITS | Encounter Summary ---
Author Organization [employer] Address 75 [facility] 7t [place] [address] Care Team Providers Care Concierge Manager Name Role Phone Balaji Quinones MD Primary Care Provide r Kristi Giles PharmD Unavailable +- Birgit Franklin PharmD Unavailable [phone] Encounter Details Date Type Department Care Team (Late st Contact Info) Description 01/28/2022 Abstract [facility] [address] [place] [address] Kristi Giles PharmD 230 [place] [address] Social History Tobacco Use Types Packs/Day Years [...] EDT Medication Management [facility] [address] [place] [address] Birgit Franklin PharmD 230 [place] [address] documented as of this encounter Goals Goal [...] on filedocumented in this encounter Care Teams Concierge Manager Relationship Specialty Start Date End Date Balaji Quinones MD [address] [place] [address] PCP - General Internal Medicine 11/25/13 Kristi Giles PharmD [address] [place] [address] Pharmacist Internal Medicine 01/30/22 06/05/24 Birgit Franklin PharmD [address] [place] [address] Pharmacist Internal Medicine 06/06/24 documented as of this encounter
--- OUTSIDE RECORDS SUMMARY | 2024-11-03 13:59 | XMS_ITS | Encounter Summary ---
Author Organization [employer] Address [address] [facility] [address] 7t [place] [address] Care Team Providers Care Acid Strength Inspector Name Role Phone Baljai Quinones MD Primary Care Provide r Birgit Franklin PharmD Unavailable [phone] Encounter Details Date Type Department Care Team (Latest Contact Info) Description 10/29/2024 Travel Social History Tobacco Use Types Packs/Day [...] Description 04/28/2025 10:30 AM EDT Medication Management [facility] [address] [place] [address] Birgit Franklin PharmD [address] [place] [address] documented as of this encounter Goals Goal [...] documented as of this encounter Care Teams Acid Strength Inspector Relationship Specialty Start Date End Date Balaji Quinones MD [address] [place] [address] PCP - General Internal Medicine 11/25/13 Birgit Franklin, Quentin [address] [place] [address] [place] [phone] Pharmacist Internal Medicine 06/06/24 documented as of this encounter
--- OUTSIDE RECORDS SUMMARY | 2024-11-03 13:59 | XMS_ITS | Encounter Summary ---
Author Organization [employer] Address [address] [facility] [address] 7t [place] [address] Care Team Providers Care Commercial Accountant Name Role Phone Balaji Quinones MD Primary Care Provide r Kristi Giles PharmD Unavailable + Birgit Franklin PharmD Unavailable [phone] Reason for Visit * Reason Onset Date Comments Durable Medical Equipment 01/30/2023 Encounter Details Date Type Department Care Team ([facility] st Contact Info) Description 01/30/2023 Telephone [facility] 230 [place] [address] Balaji Quinones MD [address] [place] [address] Durable Medical Equipment Social History Tobacco Use [...] and taking falls. Please contact pt @ [phone] Macanese Speaker documented in this encounter Plan of Treatment Upcoming Encounters Date Type Department Care Team (Late st Contact Info) Description 04/28/2025 10:30 AM EDT Medication Management [facility] [address] [place] [address] Birgit Franklin PharmD [address] [place] [address] documented as of this encounter Goals Goal [...] on filedocumented in this encounter Care Teams Commercial Accountant Relationship Specialty Start Date End Date Balaji Quinones MD [address] [place] [address] PCP - General Internal Medicine 11/25/13 Kristi Giles PharmD [address] [place] [address] Pharmacist Internal Medicine 01/30/22 06/05/24 Birgit Franklin PharmD [address] [place] [address] Pharmacist Internal Medicine 06/06/24 documented as of this encounter
--- OUTSIDE RECORDS SUMMARY | 2024-11-03 13:59 | XMS_ITS | Encounter Summary ---
Author Organization [employer] Address 75 [facility] 7t [place] [address] Care Team Providers Care Superintendent Radio Communications Name Role Phone Balaji Quinones MD Primary Care Provide r Kristi Giles PharmD Unavailable + Birgit Franklin PharmD Unavailable [phone] Reason for Visit * Reason Comments Med Refill Encounter Details Date Type Department Care Team (Late st Contact Info) Description 03/01/[address] [facility] [address] [place] [address] Balaij Quinones MD 230 [place], [place] [phone] Type 2 diabetes mellitus without complication, unspecified whether snf insulin use ([facility]) Social History Tobacco Use Types Packs/Day [...] Description 04/28/2025 10:30 AM EDT Medication Management [facility] [address] [place] [address] Birgit Franklin PharmD [address] [place] [address] documented as of this encounter Goals Goal [...] 2 diabetes mellitus without complication, unspecified whether ferry terminal supervisor insulin use ([facility]) documented in this encounter Care Teams Superintendent Radio Communications Relationship Specialty Start Date End Date Balaji Quinones MD [address] [place] [address] PCP - General Internal Medicine 11/25/13 Kristi Giles PharmD [address] [place] [address] Pharmacist Internal Medicine 01/30/22 06/05/24 Birgit Franklin PharmD [address] [place] [address] Pharmacist Internal Medicine 06/06/24 documented as of this encounter
--- OUTSIDE RECORDS SUMMARY | 2024-11-03 13:59 | XMS_ITS | Encounter Summary ---
Author Organization [employer] Address 75 [facility] 7t [place] [address] Care Team Providers Care Bell Cleaner Name Role Phone Balaji Quinones MD Primary Care Provide r Kristi Giles PharmD Unavailable + Birgit Franklin PharmD Unavailable [phone] Reason for Visit * Reason Comments Med Refill Encounter Details Date Type Department Care Team (Late st Contact Info) Description 10/27/2022 Refill [facility] 230 [place] [address] Clau Pascual ANP [address] [place] [address] Tinea pedis of both feet Social History [...] 10:30 AM EDT Medication Management [facility] 230 [place] [address] Birgit Franklin PharmD [address] [place] [address] documented as of this encounter Goals Goal [...] feet documented in this encounter Care Teams Bell Cleaner Relationship Specialty Start Date End Date Balaji Qiunones MD [address] [place] [address] PCP - General Internal Medicine 11/25/13 Kristi Giles PharmD [address] [place] [address] Pharmacist Internal Medicine 01/30/22 06/05/24 Birgit Franklin PharmD [address] [place] [address] Pharmacist Internal Medicine 06/06/24 documented as of this encounter
--- OUTSIDE RECORDS SUMMARY | 2024-11-03 13:59 | XMS_ITS | Encounter Summary ---
Author Organization [employer] Address [address] [facility] [address] 7[address] [place] [address] Care Team Providers Care Ordnance Mechanic Name Role Phone Balaji Quinones MD Primary Care Provide r Birgit Franklin PharmD Unavailable [phone] Reason for Visit * Reason Onset Date Comments Med Refill 10/06/2024 Encounter Details Date Type Department Care Team ([facility] st Contact Info) Description 10/06/2024 Telephone [facility] [address] [place] [address] Balaji Quinones MD [address] [place], [place] [phone] Med Refill Social History Tobacco Use Types [...] PCP prescribe? * Telephone Encounter - Ramesh Medina - 10/06/2024 10:39 AM EDT TC from pt requesting medication refill. Medications needing refill : Ascorbic Acid (vitamin C) 250 MG tablet To be sent to: [facility] *Script documented in this encounter Plan of Treatment Upcoming Encounters Date Type Department Care Team (Late st Contact Info) Description 04/28/2025 10:30 AM EDT Medication Management [facility] [address] [place] [address] Birgit Franklin PharmD [address] [place] [address] documented as of this encounter Goals Goal Patient Goal Type Associated Problems Recent Progress Patient-Stated? Author Blood Pressure < 140/90 Blood Pressure 122/62(2024 11:26 AM EDT) No Kristi Giles, Quentin Note: Maintain [...] documented as of this encounter Care Teams Ordnance Mechanic Relationship Specialty Start Date End Date Balaji Quinones MD [address] [place] [address] PCP - General Internal Medicine 11/25/13 Birgit Franklin PharmD [address] [place] [address] Pharmacist Internal Medicine 06/06/24 documented as of this encounter
--- OUTSIDE RECORDS SUMMARY | 2024-11-03 13:59 | XMS_ITS | Encounter Summary ---
Author Organization [employer] Address 75 [facility] 7t [place] [address] Care Team Providers Care Microsoft Bi Consultant Name Role Phone Balaij Quinones MD Primary Care Provide r Kristi Giles PharmD Unavailable + Birgit Franklin PharmD Unavailable [phone] Reason for Visit * Reason Comments Med Refill Encounter Details Date Type Department Care Team (Late st Contact Info) Description 10/27/2022 Refill [facility] MEDICINE [address] [place] [address] Balaji Quinones MD 230 [place], [place] [phone] Dermatitis of lower extremity Social History Tobacco [...] Description 04/28/2025 10:30 AM EDT Medication Management [facility] MEDICINE [address] [place] [address] Birgit Franklin PharmD [address] [place] [address] documented as of this encounter Goals Goal [...] extremity documented in this encounter Care Teams Microsoft Bi Consultant Relationship Specialty Start Date End Date Balaji Quinones MD [address] [place] [address] PCP - General Internal Medicine 11/25/13 Kristi Giles PharmD [address] [place] [address] Pharmacist Internal Medicine 01/30/22 06/05/24 Birgit Franklin PharmD [address] [place] [address] Pharmacist Internal Medicine 06/06/24 documented as of this encounter
--- OUTSIDE RECORDS SUMMARY | 2024-11-03 13:59 | XMS_ITS | Encounter Summary ---
Author Organization [employer] Address 75 [facility] 7t [place] [address] Care Team Providers Care Balloon Artist Name Role Phone Balaji Quinones MD Primary Care Provide r Kristi Giles PharmD Unavailable + Birgit Franklin PharmD Unavailable [phone] Encounter Details Date Type Department Care Team ([facility] Contact Info) Description 06/22/2022 Abstract [facility] MEDICINE 230 [place] [address] Balaji Quinones MD 230 [place], [place] [phone] Social History Tobacco Use Types Packs/Day Years [...] 10:30 AM EDT Medication Management [facility] MEDICINE [address] [place] [address] Birgit Franklin PharmD 230 [place] [address] documented as of this encounter Goals Goal [...] EDT Recommended 10 [place] ( [facility] [place] Historical Provider HEALTH MAINTENANCE Final Result documented in this encounter Visit Diagnoses Not on filedocumented in this encounter Care Teams Balloon Artist Relationship Specialty Start Date End Date Balaji Quinones MD [address] [place] [address] PCP - General Internal Medicine 11/25/13 Kristi Giles PharmD [address] [place] [address] Pharmacist Internal Medicine 01/30/22 06/05/24 Birgit Franklin PharmD 230 [place] [address] Pharmacist Internal Medicine 06/06/24 documented as of this encounter
--- OUTSIDE RECORDS SUMMARY | 2024-11-03 13:59 | XMS_ITS | Encounter Summary ---
Author Organization [employer] Address 75 [facility] 7t [place] [address] Care Team Providers Care General Matcher Name Role Phone Balaji Quinones MD Primary Care Provide r Kristi Giles PharmD Unavailable + Birgit Franklin PharmD Unavailable [phone] Reason for Visit * Reason Comments Med Refill Encounter Details Date Type Department Care Team (Late st Contact Info) Description 01/28/[address] [facility] [address] [place] [address] Balaji Quinones MD [address] [place] [address] Social History Tobacco Use Types Packs/Day Years [...] 04/28/2025 10:30 AM EDT Medication Management [facility] [address] [place] [address] Birgit Franklin PharmD [address] [place] [address] documented as of this encounter Goals Goal [...] on filedocumented in this encounter Care Teams General Matcher Relationship Specialty Start Date End Date Balaji Quinones MD [address] [place] [address] PCP - General Internal Medicine 11/25/13 Kristi Giles PharmD [address] [place] [address] Pharmacist Internal Medicine 01/30/22 06/05/24 Birgit Franklin PharmD [address] [place] [address] Pharmacist Internal Medicine 06/06/24 documented as of this encounter
--- OUTSIDE RECORDS SUMMARY | 2024-11-03 13:59 | XMS_ITS | Encounter Summary ---
Author Organization [employer] Address [address] [facility] 7t [place] [address] Care Team Providers Care Steam Fitter Helper Name Role Phone Balaji Quinones MD Primary Care Provide r Kristi Giles PharmD Unavailable + Birgit Franklin PharmD Unavailable [phone] Reason for Visit * Reason Comments Med Refill Encounter Details Date Type Department Care Team (Late st Contact Info) Description 09/17/2022 Refill [facility] [address] [place] [address] Balaji Quinones MD [address] [place], [place] [phone] Dry eyes Social History Tobacco Use Types [...] Description 04/28/2025 10:30 AM EDT Medication Management [facility] MEDICINE [address] [place] [address] Birgit Franklin PharmD [address] [place] [address] documented as of this encounter Goals Goal [...] insufficiency documented in this encounter Care Teams Steam Fitter Helper Relationship Specialty Start Date End Date Balaji Quinones MD [address] [place] [address] PCP - General Internal Medicine 11/25/13 Kristi Giles PharmD [address] [place] [address] Pharmacist Internal Medicine 01/30/22 06/05/24 Birgit Franklin PharmD [address] [place] [address] Pharmacist Internal Medicine 06/06/24 documented as of this encounter
--- OUTSIDE RECORDS SUMMARY | 2024-11-03 13:59 | XMS_ITS | Encounter Summary ---
Author Organization [employer] Address 75 [facility] 7t [place] [address] Care Team Providers Care Wreath Machine Operator Name Role Phone Balaji Quinones MD Primary Care Provide r Kristi Giles PharmD Unavailable + Birgit Franklin PharmD Unavailable [phone] Reason for Visit * Reason Comments Med Refill Encounter Details Date Type Department Care Team (Late st Contact Info) Description 01/30/2023 Refill [facility] 230 [place] [address] Balaji Quinones MD [address] [place] [address] Social History Tobacco Use Types Packs/Day Years [...] Description 04/28/2025 10:30 AM EDT Medication Management [facility] MEDICINE [address] [place] [address] Birgit Franklin PharmD [address] [place] [address] documented as of this encounter Goals Goal [...] on filedocumented in this encounter Care Teams Wreath Machine Operator Relationship Specialty Start Date End Date Balaji Quinones MD [address] [place] [address] PCP - General Internal Medicine 11/25/13 Kristi Giles PharmD [address] [place] [address] Pharmacist Internal Medicine 01/30/22 06/05/24 Birgit Franklin PharmD [address] [place] [address] Pharmacist Internal Medicine 06/06/24 documented as of this encounter
--- OUTSIDE RECORDS SUMMARY | 2024-11-03 13:59 | XMS_ITS | Encounter Summary ---
Author Organization [employer] Address 75 [facility] 7t [place] [address] Care Team Providers Care Electoral Officer Name Role Phone Balaji Quinones MD Primary Care Provide r Kristi Giles PharmD Unavailable + Birgit Franklin PharmD Unavailable [phone] Reason for Visit * Reason Comments Med Refill Encounter Details Date Type Department Care Team (Late Contact Info) Description 03/08/2023 Refill [facility] [address] [place] [address] Balaji Quinones MD 230 [place], [place] [phone] Folliculitis Social History Tobacco Use Types Packs/Day [...] 10:30 AM EDT Medication Management [facility] MEDICINE [address] [place] [address] Birgit Franklin PharmD 230 [place] [address] documented as of this encounter Goals Goal [...] follicles documented in this encounter Care Teams Electoral Officer Relationship Specialty Start Date End Date Balaji Quinones MD [address] [place] [address] PCP - General Internal Medicine 11/25/13 Kristi Giles PharmD [address] [place] [address] Pharmacist Internal Medicine 01/30/22 06/05/24 Birgit Franklin PharmD [address] [place] [address] Pharmacist Internal Medicine 06/06/24 documented as of this encounter
--- OUTSIDE RECORDS SUMMARY | 2024-11-03 13:59 | XMS_ITS | Encounter Summary ---
Author Organization [employer] Address 75 [facility] 7t [place] [address] Care Team Providers Care Passenger Rate Clerk Name Role Phone Balaji Quinones MD Primary Care Provide r Kristi Giles PharmD Unavailable + Birgit Franklin PharmD Unavailable [phone] Reason for Visit * Reason Comments Med Refill Encounter Details Date Type Department Care Team (Late st Contact Info) Description 01/30/2023 Refill [facility] [address] [place] [address] Balaji Quinones MD [address] [place] [address] Social History Tobacco Use Types Packs/Day Years [...] Description 04/28/2025 10:30 AM EDT Medication Management [facility] MEDICINE [address] [place] [address] Birgit Franklin PharmD [address] [place] [address] documented as of this encounter Goals Goal [...] on filedocumented in this encounter Care Teams Passenger Rate Clerk Relationship Specialty Start Date End Date Balaji Quinones MD [address] [place] [address] PCP - General Internal Medicine 11/25/13 Kristi Giles PharmD [address] [place] [address] Pharmacist Internal Medicine 01/30/22 06/05/24 Birgit Franklin PharmD 230 [place] [address] Pharmacist Internal Medicine 06/06/24 documented as of this encounter
--- OUTSIDE RECORDS SUMMARY | 2024-11-03 13:59 | XMS_ITS | Encounter Summary ---
Author Organization [employer] Address [address] [facility] [address] 7t [place] [address] Care Team Providers Care Cloud Solutions Architect Name Role Phone Balaji Quinones MD Primary Care Provide r Birgit Franklin PharmD Unavailable [phone] Encounter Details Date Type Department Care Team ([facility] st Contact Info) Description 07/08/2024 Telephone [facility] MEDICINE 230 [place], [place] [phone] Balaji Quinones MD [address] [place], [place] [phone] Social History Tobacco Use Types Packs/Day Years [...] Description 04/28/2025 10:30 AM EDT Medication Management [facility] MEDICINE [address] [place] [address] Birgit Franklin PharmD [address] [place] [address] documented as of this encounter Goals Goal [...] 122/62(2024 11:26 AM EDT) No Kristi Giles PharmIvan Follow the [...] documented as of this encounter Care Teams Cloud Solutions Architect Relationship Specialty Start Date End Date Balaji Quinones MD [address] [place] [address] PCP - General Internal Medicine 11/25/13 Birgit Franklin PharmD [address] [place] [address] Pharmacist Internal Medicine 06/06/24 documented as of this encounter
--- OUTSIDE RECORDS SUMMARY | 2024-11-03 13:59 | XMS_ITS | Encounter Summary ---
Author Organization [employer] Address [address] [facility] [address] 7[address] [place] [address] Care Team Providers Care File Machine Operator Name Role Phone Balaji Quinones MD Primary Care Provide r Birgit Franklin PharmD Unavailable [phone] Reason for Visit * Reason Comments Med Refill Encounter Details Date Type Department Care Team ([facility] Contact Info) Description 11/02/2024 Refill [facility] MEDICINE 230 [place] [address] Balaji Quinones MD 230 [place] [address] Type 2 diabetes mellitus without complication, unspecified whether fci insulin use ([facility]) Social History Tobacco Use Types Packs/Day [...] Description 04/28/2025 10:30 AM EDT Medication Management [facility] MEDICINE [address] [place] [address] Birgit Franklin PharmD [address] [place] [address] documented as of this encounter Goals Goal [...] diabetes mellitus 6.6( 1:59 PM EDT) No Giles, Jerril, PharmD documented as of this encounter Visit Diagnoses Diagnosis Type 2 diabetes mellitus without complication, unspecified whether regional intermodal truck driver insulin use ([facility]) documented in this encounter Additional Health Concerns Assessment Noted Time PHQ-9 Depression Total Score: 0 05/16/19 11:46 AM EDT documented as of this encounter Care Teams File Machine Operator Relationship Specialty Start Date End Date Balaji Quinones MD 230 [place] [address] PCP - General Internal Medicine 11/25/13 Birgit Franklin PharmD [address] [place] [address] Pharmacist Internal Medicine 06/06/24 documented as of this encounter
--- OUTSIDE RECORDS SUMMARY | 2024-11-03 13:59 | XMS_ITS | Encounter Summary ---
Author Organization [employer] Address [address] [facility] [address] 7t [place] [address] Care Team Providers Care Maintenance Plumber Name Role Phone Balaji Quinnoes MD Primary Care Provide r Birgit Franklin PharmD Unavailable [phone] Reason for Visit * Reason Comments Med Refill Encounter Details Date Type Department Care Team ([facility] st Contact Info) Description 11/01/2024 Refill [facility] MEDICINE [address] [place] [address] Balaji Quinones MD [address] [place] [address] Dry eyes Social History Tobacco Use Types [...] 10:30 AM EDT Medication Management [facility] MEDICINE [address] [place] [address] Birgit Franklin PharmD [address] [place] [address] documented as of this encounter Goals Goal [...] documented as of this encounter Care Teams Maintenance Plumber Relationship Specialty Start Date End Date Balaji Quinones MD [address] [place] [address] PCP - General Internal Medicine 11/25/13 Birgit Franklin PharmD [address] [place] [address] Pharmacist Internal Medicine 06/06/24 documented as of this encounter
--- OUTSIDE RECORDS SUMMARY | 2024-11-03 13:59 | XMS_ITS | Encounter Summary ---
Author Organization [employer] Address [address] [facility] [address] 7t [place] [address] Care Team Providers Care Seed Yeast Operator Name Role Phone Balaji Quinones MD Primary Care Provide r Kristi Giles PharmD Unavailable + Birgit Franklin PharmD Unavailable [phone] Reason for Visit * Reason Comments Med Refill Encounter Details Date Type Department Care Team ([facility] st Contact Info) Description 08/01/2023 Refill [facility] 230 [place] [address] Vani Stallworth MD [address] [place] [address] Folliculitis Social History Tobacco Use Types Packs/Day [...] Description 04/28/2025 10:30 AM EDT Medication Management [facility] [address] [place] [address] Birgit Franklin PharmD [address] [place] [address] documented as of this encounter Goals Goal [...] mellitus 6.6( 1:59 PM EDT) No Kristi iGles PharmD documented as of this encounter Visit Diagnoses Diagnosis Folliculitis Other specified disease of hair and hair follicles documented in this encounter Additional Health Concerns Assessment Noted Time PHQ-9 Depression Total Score: 1 04/19/19 24 1:30 PM EST documented as of this encounter Care Teams Seed Yeast Operator Relationship Specialty Start Date End Date Balaji Quinones MD [address] [place] [address] PCP - General Internal Medicine 11/25/13 Kristi Giles PharmD [address] [place] [address] Pharmacist Internal Medicine 01/30/22 06/05/24 Birgit Franklin PharmD [address] [place] [address] Pharmacist Internal Medicine 06/06/24 documented as of this encounter
--- OUTSIDE RECORDS SUMMARY | 2024-11-03 13:59 | XMS_ITS | Encounter Summary ---
Author Organization [employer] Address [address] [facility] [address] 7[address] [place] [address] Care Team Providers Care Skiagrapher Name Role Phone Balaji Quinones MD Primary Care Provide r Birgit Franklin PharmD Unavailable [phone] Reason for Visit * Reason Comments Med Refill Encounter Details Date Type Department Care Team ([facility] st Contact Info) Description 10/06/2024 Refill [facility] MEDICINE 230 [place] [address] Balaji Quinones MD [address] [place] [address] Social History Tobacco Use Types Packs/Day Years [...] Description 04/28/2025 10:30 AM EDT Medication Management [facility] MEDICINE [address] [place] [address] Birgit Franklin PharmD [address] [place] [address] documented as of this encounter Goals Goal [...] documented as of this encounter Care Teams Skiagrapher Relationship Specialty Start Date End Date Balaji Quinones MD [address] [place] [address] PCP - General Internal Medicine 11/25/13 Birgit Franklin PharmD [address] [place] [address] Pharmacist Internal Medicine 06/06/24 documented as of this encounter
--- OUTSIDE RECORDS SUMMARY | 2024-11-03 13:59 | XMS_ITS | Encounter Summary ---
Author Organization [employer] Address 75 [facility] 7t [place] [address] Care Team Providers Care Production Assembler Name Role Phone Balaji Quinones MD Primary Care Provide r Kristi Giles PharmD Unavailable + Birgit Franklin PharmD Unavailable [phone] Reason for Visit * Reason Onset Date Comments Med Refill 01/30/2023 Encounter Details Date Type Department Care Team ([facility] st Contact Info) Description 01/30/2023 Telephone [facility] MEDICINE 230 [place] [address] Balaji Quinones MD 230 [place] [address] Med Refill Social History Tobacco Use Types [...] 81 MG EC tablet Please sent to [facility] - [place], [place] - [address] [facility] Pt is due on holidays but is requesting if medication could be given before than. documented in this encounter Plan of Treatment Upcoming Encounters Date Type Department Care Team (Late st Contact Info) Description 04/28/2025 10:30 AM EDT Medication Management [facility] MEDICINE [address] [place] [address] Birgit Franklin PharmD 230 [place] [address] documented as of this encounter Goals Goal [...] filedocumented in this encounter Care Teams Production Assembler Relationship Specialty Start Date End Date Balaji Quinones MD [address] [place] [address] [phone] PCP - General Internal Medicine 11/25/13 Kristi Giles PharmD [address] [place] [address] [phone] Pharmacist Internal Medicine 01/30/22 06/05/24 Birgit Franklin, Quentin [address] [place] [address] Pharmacist Internal Medicine 06/06/24 documented as of this encounter
--- OUTSIDE RECORDS SUMMARY | 2024-11-03 13:59 | XMS_ITS | Encounter Summary ---
Author Organization [employer] Address [address] [facility] [address] 7t [place] [address] Care Team Providers Care Audiovisual Aids Technician Name Role Phone Balaji Quinones MD Primary Care Provide r Kristi Giles PharmD Unavailable + Birgit Franklin PharmD Unavailable + Reason for Visit * Reason Comments Med Refill Encounter Details Date Type Department Care Team ([facility] st Contact Info) Description 12/24/2023 Refill [facility] 230 [place] [address] Balaji Quinones MD 230 [place] [address] Folliculitis Social History Tobacco Use Types Packs/Day [...] 10:30 AM EDT Medication Management [facility] MEDICINE [address] [place] [address] Birgit Franklin PharmD 230 [place] [address] documented as of this encounter Goals Goal [...] documented as of this encounter Care Teams Audiovisual Aids Technician Relationship Specialty Start Date End Date Balaji Quinones MD [address] [place] [address] PCP - General Internal Medicine 11/25/13 Kristi Giles PharmD [address] [place] [address] Pharmacist Internal Medicine 01/30/22 06/05/24 Birgit Franklin PharmD [address] [place] [address] Pharmacist Internal Medicine 06/06/24 documented as of this encounter
--- OUTSIDE RECORDS SUMMARY | 2024-11-03 14:00 | XMS_ITS | Clinical Summary ---
Author Organization [employer] Address [address] [place] [address] Care Team Providers Care Principal Software Engineer Name Role Phone Balaji Quinones MD Primary Care Provide r Birgit Franklin PharmD Unavailable [phone] Allergies No known active allergies Medications sertraline [...] CHECK BLOOD PRESSURE DIRECTED 01/04/20 22 Active cyanocobalamin (Vitamin B-12) 1000 MCG tablet [...] Type 2 diabetes mellitus with hyperlipidemia (CMS/HCC) ([facility]) TEST BLOOD SUGAR ONCE DAILY 100 each 12/28/19 24 Active TRUEplus Lancets 33G miscIndications:T ype 2 diabetes mellitus with hyperlipidemia (CMS/HCC) (CMS/[facility]) TEST BLOOD SUGAR ONCE DAILY ICD10= 100 each 12/28/19 24 Active metFORMIN (Glucophage) 1000 MG tabletIndications :Type 2 diabetes mellitus without complication, unspecified whether extermination inspector insulin use (CMS/HCC) TAKE 1 TABLET BY MOUTH TWICE DAILY [...] 2 diabetes mellitus without complication, unspecified whether extermination inspector insulin use (CMS/HCC) Take 1 tablet (45 mg) by mouth [...] 2 diabetes mellitus without complication, unspecified whether extermination inspector insulin use (CMS/HCC) TAKE 1 TABLET [...] 1,000 mg by mouth Once per day. 05/20/20 25 Active amLODIPine (Norvasc) 10 MG tabletIndications :Primary hypertension Take 1 tablet (10 mg) by mouth in the morning. 90 tablet 1 09/17/19 25 Active carvedilol (Coreg) 3.125 MG tabletIndications :Primary hypertension Take 1 tablet (3.125 mg) by mouth with breakfast and with evening meal. 180 tablet 1 10/22/19 25 Active triamcinolone (Kenalog) 0.025 % creamIndications: Dermatitis of lower extremity APPLY 1 GRAM TO AFFECTED AREA(S) TWICE DAILY DIRECTED 60 g 1 10/29/19 25 Active ketoconazole (NIZOral) 2 % creamIndications: Tinea pedis of both feet APPLY TOPICALLY TO THE AFFECTED AREA(S) EVERY MORNING 30 g 10/29/19 25 Active mineral oil-hydrophil petrolat ointment Topical Ointment APPLY TO THE AFFECTED AREA(S) TOPICALLY TWICE DAILY 454 g 5 10/29/19 25 Active predniSONE (Deltasone) 2.5 MG tablet Take 1 tablet by mouth 2 times daily. 10/21/19 25 Active carvedilol (Coreg) 3.125 MG tablet Take 1 tablet (3.125 mg) by mouth with breakfast and with evening meal. 60 tablet 11 01/16/20 22 2024 Discontinued(R eorder (will not trigger notification to Pharmacy)) mineral oil-hydrophil petrolat ointment Topical Ointment APPLY TOPICALLY TO AFFECTED AREA(S) NEEDED 12/02/19 22 2024 Discontinued FeroSul 325 (65 Fe) MG tablet TAKE 1 TABLET BY MOUTH EVERY DAY 90 tablet 1 01/20/20 23 2024 Discontinued(M ed list cleanup (will not trigger notification to Pharmacy)) triamcinolone (Kenalog) 0.025 % creamIndications: Dermatitis of lower extremity APPLY 1 GRAM TOPICALLY TO AFFECTED AREA(S) TWICE DAILY DIRECTED 60 g 1 08/08/19 25 2024 Discontinued ketoconazole (NIZOral) 2 % creamIndications: Tinea pedis of both feet APPLY 1 GRAM TOPICALLY TO AFFECTED AREA(S) EVERY MORNING 30 g 08/22/19 25 2024 Discontinued Active Problems Problem Noted Date Diagnosed Date 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 His voktxoes-yi-ejy brought him to [facility]. Denied headache, chest pain, SOB, n/v/d, [...] follow up scheduled with Dr. Peres his graphics artist Seen by Neurology who ordered Brain MRI that showed: No acute brain abnormality. No gross abnormal enhancing lesion. 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 Assessment & Plan (02/14/2024 4:19 PM EST): Pt seen at our [facility] 12/28/[address] Lloyd Puckett After pt was walking on sidewalk, felt sudden dizzy, unable to describe dizziness, and the next thing he remembers is being on the ground with facial injuries, abrasions on knees and left wrist. His nqeznxlh-gn-vux brought him to [facility]. Denied headache, chest pain, SOB, n/v/d, or recent illness. States has many year h/o similar recurrent episodes of dizziness that he cannot describe, occasionally falls. ECG today shows sinus arrythmia, IVCD, PACs. Pt tells me he already has a follow up scheduled with Dr. Peres his graphics artist Plan: Obtain ECHO, ECG, EEG. CT of brain Cardiology and Neurology Consult Prostate cancer, primary, wi th metastasis from prostate to other site 08/21/2023 [...] has appointment for an ultrasound coming up [facility] care 05/11/2022 Assessment & Plan (05/15/2024 10:56 [...] of 3.9 cm. Pt was referred to [facility] Cardiovascular surgeons. He was seen 11/06/2016 [...] of 3.9 cm. Pt was referred to [facility] Cardiovascular surgeons. He was seen 11/06/2016 [...] of 3.9 cm. Pt was referred to [facility] Cardiovascular surgeons. He was seen 11/06/2016 [...] of 3.9 cm. Pt was referred to [facility] Cardiovascular surgeons. He was seen 11/06/2016 [...] of 3.9 cm. Pt was referred to [facility] Cardiovascular surgeons. He was seen 11/06/2016 [...] from 6.5 Eye exam done by Dr. Ward Microalbumin checked on: 06/19/2023 was: 15.3 Pt [...] Encounters Date Type Department Care Team Description 11/02/2024 Refill [facility] MEDICINE [address] [place] [address] Balaji Quinones MD Type 2 diabetes mellitus without complication, unspecified whether chcf insulin use ([facility]) 11/01/2024 Refill [facility] [address] [facility] [place] [address] Balaji Quinones MD Dry eyes 10/29/2024 Travel 10/24/2024 Telephone [facility] MED[facility]INE [address] [place] [address] Balaji Quinones MD 10/24/2024 Refill [facility] MED[facility] [address] [place] [address] Balaji Quinones MD Dermatitis of lower extremity; Tinea pedis of both feet 10/21/2024 2:15 PM EDT Office Visit [facility] [address] [place] [address] Balaji Quinones MD Type 2 diabetes mellitus without complication, without long-term current use of insulin ([facility]) (Primary Dx); Prostate cancer, primary, with metastasis from prostate to other site ([facility]); Primary hypertension; Mixed hyperlipidemia 10/21/2024 Travel 10/20/2024 Telephone [facility] [address] [place] [address] Balaji Quinones MD chart prep 10/14/2024 Orders Only [facility] [address] [place] [address] Raquel Kirk, RN Screening for tuberculosis 10/06/2024 Telephone [facility] [address] [place] [address] Balaji Quinones MD Med Refill 10/06/2024 Refill [facility] [address] [place] [address] Balaji Quinones MD 09/23/2024 Telephone [facility] [address] [place] [address] Balaji Quinones MD Durable Medical Equipment 09/16/2024 Refill [facility] [address] [place] [address] Balaji Quinones MD Primary hypertension 09/04/2024 Orders Only [facility] External Provider, [facility] 08/21/2024 Refill [facility] WALK-IN CENTER [address] [place] [address] Balaji Quinones MD Tinea pedis of both feet 08/06/2024 Refill [facility] [address] [place] [address] Balaji Quinones MD Dermatitis of lower extremity 08/04/2024 3:15 PM EDT Office Visit [facility] OPTOMETRY [address] [place] [address] Abdiel, Kaci, OD Presbyopia (Primary Dx) from Last 3 Months Immunizations Immunization Administration [...] Passive Smoke Exposure: Never Smokeless Tobacco: Never Tobacco Cessation:Counseling Given: Not [...] Sign Reading Time Taken Comments Blood Pressure 122/62 10/29/2024 11:26 AM EDT Pulse 77 10/21/2024 1:58 PM EDT [...] Description 04/28/2025 10:30 AM EDT Medication Management [facility] [address] [place] [address] Birgit Franklin, PharmD [address] [place] [address] Health Maintenance Due Date Last Done Comments CT Colonography 1955 FIT DNA/Cologuard 1955 FIT 1955 FOBT 1955 Sigmoidoscopy 1955 Diabetes: Foot Exam 1964 Diabetes: Urine Protein Screening 06/18/2024 06/19/2023, 01/12/2021, 11/03/2019 Lipid Panel 06/18/2024 11/03/2024, 05/0 08/2023, 07/05/2022, Additional history exists COVID-19 Vaccine ( season) 2024 11/22/2023, 03/25/2021, 09/21/2020, Additional history exists Influenza Vaccine (#1) 2024 , 12/12/2022, 01/03/2022, Additional history exists Diabetes: Hemoglobin A1C 01/20/2025 025, 07/22/2024, 02/14/2024, Additional history exists Alcohol/Substance Use Screening 02/13/2025 02/14/2024 Depression Screening 05/15/2025 05/15/2024, 05/16/19 25 SDOH Screening 05/15/2025 05/15/2024 Tobacco Screening 10/29/2025 10/29/2024 Eye Exam 05/27/2026 05/27/2024, 05/13, 05/27/2024, Additional [...] Component Type 2 diabetes mellitus 6.6( 5 1:59 PM EDT) No Kristi Giles PharmD Procedures Procedure Name Priority Date/Time Associated Diagnosis Comments LIPID PANEL, STANDARD Routine 11/03/2024 11:21 AM EDT Mixed hyperlipidemia COMPREHENSIVE METABOLIC PANEL Routine 11/03/2024 11:21 AM EDT Type 2 diabetes mellitus without complication, without long-term current use of insulin (CMS/HCC) BD DEXA AXIAL Routine 10/22/2024 2:00 PM EDT POCT GLYCATED HEMOGLOBIN, TOTAL Routine 10/21/2024 1:59 PM EDT Type 2 diabetes mellitus without complication, without long-term current use of insulin (CMS/HCC) POCT GLUCOSE Routine 10/21/2024 1:58 PM EDT Type 2 diabetes mellitus without complication, without long-term current use of insulin (CMS/HCC) CT CHEST WO CONTRAST Routine 09/04/2024 9:08 AM EDT ALBUMIN, RANDOM URINE W/CREATININE Routine 06/19/2023 12:00 [...] Relevant to Health Maintenance Results * (ABNORMAL) Lipid Panel, Standard (11/03/2024 11:21 AM EDT) Triglycerides 148 <150 mg/dL [facility] Comment:Desirable Triglyceri de: less than 150 mg/dLBorderline High Triglyceride 150-199 mg/dLHigh Triglyceride: 200-499 mg/dLVery High Triglyceride: greater than or equal to 5OO mg/dL Cholesterol 129 <200 mg/dL [facility] Comment:Desirable Cholestero l: less than 200 mg/dLBorderline High Cholesterol: 200-239 mg/dLHigh Cholesterol: greater than 239 mg/dL LDL Cholesterol Calculated 66 <100 mg/dL [facility] Comment:Desirable LDL: less than 100 mg/dLNear Optimal/Above Optimal LDL: 110- 129 mg/dLBorderline High LDL: 130-159 mg/dLHigh LDL: 160-189 mg/dLVery High LDL: greater than or equal to 190 mg/dL HDL Cholesterol 34(L) >40 mg/dL [facility] Comment:Desirable HDL: great er than 40 mg/dL Note: This HDL assay may give artificially low results in patients with liver disease. Blood Venous blood specimen / Unknown 11/03/2024 11:21 AM EDT 11/03/2024 12:57 PM EDT us Balaji Donnelly MD LAB BLOOD ORDERABLES Final Result [facility] [address] [place] [address] [phone] * (ABNORMAL) Comprehensive Metabolic Panel (11/03/2024 11:21 AM EDT) Sodium 135 135 - 145 mmol/L [facility] Potassium 3.8 3.3 - 5.1 mmol/L [facility] Chloride 99 96 - 108 mmol/L [facility] Carbon Dioxide 30(H) 22 - 29 mmol/L [facility] Anion Gap 10(L) 12 - 20 [facility] Urea Nitrogen (BUN) 11 9 - 16 mg/dL [facility] Creatinine, Serum 0.78 0.5 - 1.4 mg/dL [facility] Estimated Glomerular Filt Rate >60 [facility] Comment:Chronic Kidney Disea se: Estimated GFR < 60 mL/min/[id number] Kidney Disease: Estimated GFR < 15 mL/min/1.73m2 Glucose 249(H) 60 - 115 mg/dL [facility] Calcium 9.0 8.4 - 10.2 mg/dL [facility] Bilirubin, Total 1.1(H) 0.0 - 1.0 mg/dL [facility] Aspartate Amino Transferase 20 5 - 37 U/L [facility] Alanine Aminotransferase 13 0 - 40 U/L [facility] Total Protein 6.7 6.5 - 8.0 g/dL [facility] Albumin Level 4.2 3.5 - 5.0 g/dL [facility] Alkaline Phosphatase 46 39 - 117 U/L [facility] Blood Venous blood specimen / Unknown 11/03/2024 11:21 AM EDT 11/03/2024 12:57 PM EDT us Balaji Donnelly MD LAB BLOOD ORDERABLES Final Result [facility] [address] [place] [address] [phone] * BD DEXA Axial (10/22/2024 2:00 PM EDT) Anatomical Region Laterality Modality Body Radiographic Mirta ging 10/22/2024 2:00 PM EDT Narrative 10/22/2024 3:08 PM EDT [facility] [address] [place] [address] Mammography Report Signed Patient: Paul Alonso MR#: [id number] 33 : 1955 Acct:[id number] Age/Sex: 69 / M ADM Date: 10/22/24 Loc: HO.MAMMO Attending Dr: Lm Rico MD Ordering Physician: Lm Rico MD Results: Date of Service: 10/22/24 Follow Up: Procedure(s): XR DEXA axial skeleton Accession Number(s): [id number] cc: Lm Rico MD; Balaji Sanderson MD EXAMINATION: DXA BONE DENSITY AXIAL HISTORY: M85.80 - Other specified disorders of bone density and structure, unspecified... TECHNIQUE: QikServe Dual energy absorptiometry (DEXA) of the lumbar [...] is a trademark of the [employer]'s [place] for Metabolic Bone Disease, a World Health Organization (WHO) Collaborating Center. Electronically signed by: Bladimir Gupta MD 10/22/2024 03:05 PM EDT Dictated By: Bladimir Gupta MD Signed By: <Electronically signed by Bladimir Gupta MD in OV> 10/22/24 1505 DD/ 1400 TD/TT: 10/22/24 1430 Van Owner Operator: Procedure Note Donotuseinterpreter, Image - 10/22/2024 [place] [facility] [address] [place] [address] Mammography Report Signed Patient: Jayda Alonso#: [id number] 33 : 5Acct:[id number] Age/Sex: 69 / MADM Date: 10/22/24 Loc: HO.MAMMO Attending Dr: Lm Rico MD Ordering Physician: Lm Rico: Date of Service: 10/22/24Follow Up: Procedure(s): XR DEXA axial skeleton Accession Number(s): [id number] cc: Lm Rico MD; Balaji Sanderson MD EXAMINATION: DXA BONE DENSITY AXIAL HISTORY: M85.80 - Other specified disorders of bone density and structure, unspecified... TECHNIQUE: QikServe Dual energy absorptiometry (DEXA) of the lumbar [...] of the [employer] [place] for Metabolic Bone Disease, a World Health Organization (WHO) Collaborating Center. Electronically signed by: Bladimir Gupta MD 10/22/2024 03:05 PM EDT Dictated By: Bladimir Gupta MD Signed By: <Electronically signed by Bladimir Gupta MD in OV> 10/22/24 1505 DD/ 1400 TD/TT: 10/22/24 1430 Van Owner Operator: [facility] External Provider IMG DXA PROCEDURES Final Result * (ABNORMAL) POCT Hgb A1c (10/21/2024 1:59 PM EDT) Hemoglobin A1C 6.6(A) 4.0 - 5.7 % QC Media Lot # [id number] Lot# Expiration Date [id number], Blood 10/21/2024 1:59 PM EDT Balaji Donnelly MD POINT OF CARE TEST EN TER/EDIT ORDERABLES Final Result * (ABNORMAL) POCT Glucose (10/21/2024 1:58 PM EDT) Glucose Blood, POC 206(A) 60 - 200 mg/dL QC Media Lot # [id number] Lot# Expiration Date [id number] Blood Capillary blood specimen / Unknown 10/21/2024 1:[address] [facility] Balaji Donnelly MD POINT OF CARE TEST EN TER/EDIT ORDERABLES Final Result * CT Chest w/o Contrast (09/04/2024 9:08 AM EDT) Anatomical Region Laterality Modality Body, Chest Computed Tomogra phy 09/04/2024 9:08 AM EDT Narrative 09/04/2024 9:53 AM EDT [address] [address] [address] Scan Report Signed Patient: Paul Alonso MR#: [id number] 33 : 1955 Acct:[id number] Age/Sex: 69 / M ADM Date: 09/04/24 Loc: HO.CT Attending Dr: Ki Castaneda MD Ordering Physician: Ki Castaneda MD Date of Service: 09/04/24 Procedure(s): CT chest wo IV con Accession Number(s): [id number] cc: Balaji Sanderson MD; Ki Castaneda MD Report Number: [id number]: Total DLP = 91.00 mGy-cm EXAMINATION: CT [...] 09/04/24 0950 DD/ 0908 TD/TT: 09/04/24 0931 Van Owner Operator: Procedure Note Donotuseinterpreter, Image - 09/04/[address] [place] [address] [address] Scan Report Signed Patient: Jayda Alonso#: [id number] 33 : 5Acct:[id number] Age/Sex: 69 / MADM Date: 09/04/24 Loc: HO.CT Attending Dr: Ki Castaneda MD Ordering Physician: Ki Castaneda MD Date of Service: 09/04/24 Procedure(s): CT chest wo IV con Accession Number(s): [id number] cc: Balaji Sanderson MD; Ki Castaneda MD Report Number: [id number]: Total DLP = 91.00 mGy-cm EXAMINATION: CT [...] 09/04/24 0950 DD/ 0908 TD/TT: 09/04/24 0931 Van Owner Operator: [facility] External Provider IMG CT PROCEDURES Edited Result - Final * Albumin, Random Urine W/Creatinine (06/19/2023 12:00 AM EDT) Creatinine, Urine 137.18 mg/dL [facility] Microalbumin Urine 21.0 mg/L [facility] Microalbum Creatinine Ratio Ur 15.3 <30 ug/mg cr [facility] Comment:Albumin/Creatinine R atio Reference Ranges: Normal: < 30 ug/mg creatinine Microalbuminuria: 30 - 300 ug/mg creatinineClinical Albuminuria: > 300 ug/mg creatinine Urine (Urine, Random) 06/19/2023 06/19/2023 Balaji Donnelly MD LAB URINE ORDERABLES Final Result [facility] [address] [place] [phone] * Hepatitis C Antibody with Reflex to HCV, RNA, Quantitative, Real-Time PCR (07/05/2022 8:13 AM EDT) Hepatitis C Antibody NON-REACT MADDY NON-REACT MADDY [employer] Index 0.04 <1.00 [facility] Comment: HCV antibody was non-reactive. There is no laboratory evidence of HCV infection. In most cases, no further action is required. However, if recent HCV exposure is suspected, a test for HCV RNA (test code 39445) is suggested. For additional information please refer to http://education.[employer]/faq/ZSJ26s1 (This link is being provided for informational/ educational purposes only.) Blood Venous blood specimen / Unknown 07/05/2022 8:13 AM EDT 07/05/2022 8:14 AM EDT Narrative [facility] - 07/06/2022 11:54 AM EDT FASTING:YES FASTING: YES Balaji Donnelly MD LAB BLOOD ORDERABLES Final Result [facility] [address], [place] [address] [facility] [address] [place] [phone] * Hm Colonoscopy (07/10/2017) Colonoscopy Normal Normal 07/10/2017 Narrative Shikha Turner - 07/10/2017 3:47 PM EDT Recommended 10 year follow up ( [facility] ) Historical Provider HEALTH MAINTENANCE Final Result from Last 3 Months or Most Recently Relevant to Health Maintenance Insurance [facility] STANDARD MEDICARE Care Teams Principal Software Engineer Relationship Specialty Start Date End Date Balaji Quinones MD [address] [place] [address] PCP - General Internal Medicine 11/25/13 Birgit Franklin, Quentin [address] [place] [id number] Pharmacist Internal Medicine 06/06/24
[2024-11-06 05:10] LABS: TS Negative Control Passed; TS Panel A 0; TS Panel B 0; TS Positive Control Passed; TSpotTB Negative (Negative)
== END 2024-11-03 11:18 | disposition home or self-care (01) ==
LOC: HO.HHCL 11:17
PROVIDERS: PCP Internal Medicine; Visit Provider Internal Medicine
DX: E78.2 Mixed hyperlipidemia (principal); Z11.1 Encounter for screening for respiratory tuberculosis; E11.9 Type 2 diabetes mellitus without complications
CPT/HCPCS: 36415; 80053; 80061; 86481

== ENCOUNTER 2024-12-05 08:15 | Outpatient (REF) | payer MEDICARE, MEDICAID, SELFPAY ==
[2024-12-05 12:32] LABS: Prostate Specific Antigen < 0.10 ng/mL (<0.05-4.0)
== END 2024-12-05 08:16 | disposition home or self-care (01) ==
LOC: HO.10HDL 08:15
PROVIDERS: Visit Provider Urology
DX: C61 Malignant neoplasm of prostate (principal); C77.5 Secondary and unspecified malignant neoplasm of intrapelvic lymph nodes; Z12.5 Encounter for screening for malignant neoplasm of prostate
CPT/HCPCS: 36415; 84153; 84403

== ENCOUNTER 2024-12-30 12:41 | Outpatient (AMB) | payer MEDICARE, MEDICAID, SELFPAY ==
[2024-12-30 12:59] VITALS: BP 124/58; PULSE 66; O2SAT 100; BMI 22.1
--- NOTE | 2024-12-30 12:59 | MHC.OFFVIS ---
Vital Signs 12/30/24 12:59 Height 5 ft 3 in Weight 124 lb 8.979 oz BMI 22.1 BP 124/58 L Blood Pressure Location Lt brachial Position Sitting Pulse 66 Pulse Source Pulse Oximeter Pulse Oximetry (%) 100 Oxygen Delivery Method Room Air Intake Visit Reasons: Lymphadenopathy Director Nursing Service Required: Yes Director Nursing Service Services: Director Nursing Service Offered & Declined Director Nursing Service Name: MD speaks [place] Accompanied by: Self / Same As Patient Allergies No Known Allergies Allergy (Verified 12/30/24 13:06) HPI Comments Details: The patient is a 69-year-old gentleman who presents with an abnormal CT scan of the chest. Apparently he was in usual state health until he had a CT of the chest angiogram to assess his aorta. It came back abnormal with significant mediastinal lymphadenopathy and referred to Pulmonary. I did visualize his CT scan from 2022 and also from 05/01/2024. It actually demonstrates that he has a 3.5 cm masslike density in the area of the paratracheal lymph node. No other significant lymphadenopathy noted. No parenchymal disease. The patient is a lifelong nonsmoker. Denies any decreased appetite. He has had some weight loss however. He has gone up and down. Denies any night sweats. Denies any rashes. Did have blood work done his sedimentation rate was only 7 which is reassuring. However, based on the size of the normal paratracheal lymph node masslike density a biopsy is warranted. I did talk about a endobronchial ultrasound bronchoscopy with transbronchial needle aspirations will be the best approach. He is agreeable to this and will make arrangements to do soon as possible. 05/08/2024 the patient is here for a pulmonary follow-up visit. He is status post EBUS. He tolerated procedure well. Denying any complications or symptoms afterwards. He denies any shortness of breath. Overall he is pretty asymptomatic. Except that he has is masslike density in the area of the 4R distribution. Initially thought to be carcinoid on the preliminary results. However, now the results are consistent with metastatic prostate cancer. Indeed his PSA has been elevated he has been following closely with urology. I did reach out to urology to let him know the results and they will be calling the patient for an earlier appointment. As it is already an MRI was order for him to assess an elevated PSA. The patient is understanding the results. He understands that once he is evaluated by Urology day he will start potentially some treatment to shrink the cancer. Patient will follow-up in 4 months with me. Will do a CAT scan prior to that visit to assess the response to therapy. 09/01/2024 the patient is here for a pulmonary follow-up visit. Overall he is doing well. The patient this started his therapy for his prostate cancer. Denies any adverse effects from the therapy. He is tolerating it well. The patient denies any shortness of breath or chest discomfort. He does have a scheduled CAT scan for this week. To assess the mediastinal masslike density that he has that ended up being positive for prostate cancer. Will will review the images when available. Meantime he is going to continue with his prostate therapy that is getting serology. No need for inhalers at this time. Will follow-up in 4 months. If he has any issues prior to this he will call for an earlier assessment. 12/30/2024 the patient is here for pulmonary follow-up visit. Overall the patient is doing well. He continues on his therapy for his prostate cancer. He is tolerating it well without any adverse effects. He is following closely with urology. In the meantime he is last CT scan of the chest was back in August 2024. I did personally review. The patient appeared to have a slowly decreasing right hilar mass and also small pulmonary nodules. Will plan to repeat the CAT scan in 6 months. Will have him follow-up then. In the meantime if he develops any worsening respiratory symptoms he will call. He is going to get a flu shot today. [facility] Medical History (Updated 12/30/24 @ 21:26 by Ki Castaneda MD) Pulmonary nodules Lymphadenopathy, mediastinal Thoracic aortic aneurysm (TAA) Depression Hyperlipemia HTN (hypertension) Diabetes Anemia Surgical History Hx of prostate biopsy Hx of umbilical hernia repair H/O colonoscopy Family History Sister Breast cancer Social History Household Members: None Housing: Apartment Are you a primary patient care technician instructor to a significant other at home: No Do you presently have visiting nurse or other home services: No Alcohol intake: former Patient Tobacco Use Status: Never used Tobacco service: No Current occupational status: disabled Review of Systems Const Denies fatigue and Denies fever(s) Eyes Reports no additional complaints ENT Reports no additional complaints Card Denies chest pain Resp Reports no additional complaints GI Denies abdominal pain Musc Reports no additional complaints Skin/Breast Denies rash Neuro Reports no additional complaints Endo Denies fatigue Kofi/Lymph Reports no additional complaints Aller/Immun Reports no additional complaints Physical Exam Vital Signs: Last Vital Signs Pulse 66 12/30/24 12:59 BP 124/58 L 12/30/24 12:59 Pulse Ox 100 12/30/24 12:59 Oxygen Delivery Method Room Air 12/30/24 12:59 BMI result Body Mass Index 22.1 Const General: comfortable HEENT Head: Yes normocephalic Neck Neck: Yes supple Chest Chest palpation & inspection: normal inspection of the chest Resp Effort & Inspection: normal respiratory effort Auscultation: diminished lung sounds Cardio Heart sounds: S1 normal heart sound present and S2 normal heart sound present GI Palpation (GI): Soft to palpation Skin General skin exam: no rashes or lesions noted Extrem General: Yes no clubbing, cyanosis or edema Office Procedures Flu Questionnaire Does the patient have a severe egg allergy?: No Does the patient have severe life threatening allergies?: No Does the patient have a fever or illness today?: No Has the patient ever had Guillain-[place] Syndrome?: No Has the patient ever had any past reaction to a flu shot?: No Immunizations Fluarix [id number] (PF) 45 mcg (15 mcg x 3)/0.5 mL IM syringe Performing Provider: Ki Castaneda MD Performing Location: [facility] Administered by: Gabby Woodruff LPN on 12/30/24 13:28 Dose Route Admin Location Dispensed Lot Number Expiration Date NDC Plastic Surgery Coordinator 0.5 mL IM Right Deltoid 0.5 mL [id number] 08/11/25 40559-892-78 [id number] VIS Given Date VIS Provided VIS Publication Date 12/30/24 Single Vaccine 24 Eligibility Eligibility Date Funding Source Not [facility] Eligible 12/30/24 Private Assessment & Plan Assessment & Plan (1) Lymphadenopathy, mediastinal: Code(s): R59.0 - Localized enlarged lymph nodes Category: Medical (2) 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: Code(s): C61 - Malignant neoplasm of prostate; C77.1 - Secondary and unspecified malignant neoplasm of intrathoracic lymph nodes Category: Medical (3) Pulmonary nodules: Code(s): R91.8 - Other nonspecific abnormal finding of lung field Category: Medical Plan repeat CT chest in 6 months continue CA therapy F/U 6 months Orders: Orders CT chest wo IV con 6 Months C61 - Malignant neoplasm of prostate, C77.1 - Secondary and unspecified malignant neoplasm of intrathoracic lymph nodes, J98.59 - Other diseases of mediastinum, not elsewhere classified, R91.8 - Other nonspecific abnormal finding of lung field Influenza [id number] Immunization Today R59.0 - Localized enlarged lymph nodes Coding Level of Care Code Est Pt Level 4 (56712) Complex EM visit Add On G2211 Diagnoses Lymphadenopathy, mediastinal R59.0 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
--- OUTSIDE RECORDS SUMMARY | 2024-12-31 03:46 | XMS_ITS | Encounter Summary ---
Author Organization [employer] Address [address] [facility] 7t [place] [address] Care Team Providers Care Financial Reporting Analyst Name Role Phone Balaji Quinones MD Primary Care Provide r Kristi Giles PharmD Unavailable + Birgit Franklin PharmD Unavailable [phone] Encounter Details Date Type Department Care Team (Late st Contact Info) Description 01/28/2022 Abstract [facility] [address] [place] [phone] Kristi Giles, PharmD [address] [place] [address] Social History Tobacco Use Types Packs/Day Years [...] Care Team (Late st Contact Info) Description 01/27/2025 1:30 PM EST Office Visit [facility] [address] [place] [phone] Balaji Quinones MD [address] [place], [place] [phone] 04/28/2025 10:30 AM EDT Medication Management [facility] [address] [place] [address] Birgit Franklin PharmD [address] [place] [address] documented as of this encounter Goals Goal [...] on filedocumented in this encounter Care Teams Financial Reporting Analyst Relationship Specialty Start Date End Date Balaji Quinones MD [address] [place] [address] PCP - General Internal Medicine 11/25/13 Kristi Giles PharmD [address] [place] [address] Pharmacist Internal Medicine 01/30/22 06/05/24 Birgit Franklin PharmD [address] [place] [address] Pharmacist Internal Medicine 06/06/24 documented as of this encounter
--- OUTSIDE RECORDS SUMMARY | 2024-12-31 03:47 | XMS_ITS | Encounter Summary ---
Author Organization [employer] Address [address] [facility] [address] 7t [place] [address] Care Team Providers Care Nuclear Logging Engineer Name Role Phone Balaji Quinones MD Primary Care Provide r Kristi Giles PharmD Unavailable + Birgit Franklin PharmD Unavailable [phone] Reason for Visit * Reason Comments Med Refill Encounter Details Date Type Department Care Team ([facility] st Contact Info) Description 06/11/[address] [facility] [address] [place], [place] [phone] Balaji Quinones MD [address] [place] [address] Swelling of right middle finger Social History [...] Description 01/27/2025 1:30 PM EST Office Visit [facility] [address] [place] [phone] Balaji Quinones MD [address] [place] [phone] 04/28/2025 10:30 AM EDT Medication Management [facility] [address] [place] [address] Birgit Franklin, Quentin [address] [place] [address] documented as of this encounter Goals Goal [...] documented as of this encounter Care Teams Nuclear Logging Engineer Relationship Specialty Start Date End Date Balaji Quinones MD [address] [place] [address] PCP - General Internal Medicine 11/25/13 Kristi Giles, Quentin [address] [place] [address] Pharmacist Internal Medicine 01/30/22 06/05/24 Birgit Franklin PharmD [address] [place] [address] Pharmacist Internal Medicine 06/06/24 documented as of this encounter
--- OUTSIDE RECORDS SUMMARY | 2024-12-31 03:47 | XMS_ITS | Encounter Summary ---
Author Organization [employer] Address [address] [facility] 7t [place] [address] Care Team Providers Care Sales Associate Fishing Name Role Phone Balaji Quinones MD Primary Care Provide r Kristi Giles PharmD Unavailable + Birgit Franklin PharmD Unavailable [phone] Reason for Visit * Reason Comments Med Refill Encounter Details Date Type Department Care Team (Late st Contact Info) Description 09/17/2022 Refill [facility] [address] [place] [address] [phone] Balaji Quinones MD [address] [place], [place] [phone] Dry eyes Social History Tobacco Use Types [...] Description 01/27/2025 1:30 PM EST Office Visit [facility] [address] [place] [address] [phone] Balaji Quinones MD [address] [place], [place] [phone] 04/28/2025 10:30 AM EDT Medication Management [facility] [address] [place] [address] Birgit Franklin PharmD [address] [place] [address] documented as of this encounter Goals Goal [...] insufficiency documented in this encounter Care Teams Sales Associate Fishing Relationship Specialty Start Date End Date Balaji Quinones MD [address] [place] [address] PCP - General Internal Medicine 11/25/13 Kristi Giles PharmD [address] [place] [address] Pharmacist Internal Medicine 01/30/22 06/05/24 Birgit Franklin PharmD [address] [place] [phone] Pharmacist Internal Medicine 06/06/24 documented as of this encounter
--- OUTSIDE RECORDS SUMMARY | 2024-12-31 03:47 | XMS_ITS | Encounter Summary ---
Author Organization [employer] Address [address] [facility] [address] 7t [place] [address] Care Team Providers Care Melter Loader Name Role Phone Balaji Quinones MD Primary Care Provide r Kristi Giles PharmD Unavailable + Birgit Franklin PharmD Unavailable [phone] Reason for Visit * Reason Comments Med Refill Encounter Details Date Type Department Care Team ([facility] st Contact Info) Description 08/01/2023 Refill [facility] [address] [place] [address] Vani Stallworth MD [address] [place] [address] Folliculitis Social History Tobacco Use Types Packs/Day [...] Description 01/27/2025 1:30 PM EST Office Visit [facility] [address] [place] [phone] Balaji Quinones MD [address] [place] [address] 04/28/2025 10:30 AM EDT Medication Management [facility] [address] [place] [address] Birgit Franklin PharmD [address] [place] [address] documented as of this encounter Goals Goal [...] Hypertension 122/62(2024 11:26 AM EDT) No Kristi Giles, PharmIvan Follow the DASH diet Diet No Giles, Jerril, PharmD Note: Look for foods that are low sodium. Hemoglobin A1c < 7 Result Component Type 2 diabetes mellitus 6.6( 5 1:59 PM EDT) No Kristi Giles, SarayD documented as of this encounter Visit Diagnoses Diagnosis Folliculitis Other specified disease of hair and hair follicles documented in this encounter Additional Health Concerns Assessment Noted Time PHQ-9 Depression Total Score: 1 04/19/19 24 1:30 PM EST documented as of this encounter Care Teams Melter Loader Relationship Specialty Start Date End Date Balaji Quinones MD [address] [place] [address] PCP - General Internal Medicine 11/25/13 Kristi Giles, Quentin [address] [place] [address] Pharmacist Internal Medicine 01/30/22 06/05/24 Birgit Franklin, Quentin [address] [place] [address] Pharmacist Internal Medicine 06/06/24 documented as of this encounter
--- OUTSIDE RECORDS SUMMARY | 2024-12-31 03:47 | XMS_ITS | Encounter Summary ---
Author Organization [employer] Address [address] [facility] [address] 7[address] [place] [address] Care Team Providers Care Powerhouse Mechanic Name Role Phone Balaji Quinones MD Primary Care Provide r Kristi Giles PharmD Unavailable + Birgit Franklin PharmD Unavailable [phone] Reason for Visit * Reason Comments Med Refill Encounter Details Date Type Department Care Team ([facility] st Contact Info) Description 06/25/2023 Refill [facility] [address] [place] [address] Balaji Quinones MD [address] [place] [address] Folliculitis Social History Tobacco Use Types Packs/Day [...] Description 01/27/2025 1:30 PM EST Office Visit [facility] [address] [place] [address] [phone] Balaji Quinones MD [address] [place] [phone] 04/28/2025 10:30 AM EDT Medication Management [facility] [address] [place] [phone] Birgit Franklin PharmD [address] [place] [address] documented as of this encounter Goals Goal [...] documented as of this encounter Care Teams Powerhouse Mechanic Relationship Specialty Start Date End Date Balaji Quinones MD [address] [place] [address] PCP - General Internal Medicine 11/25/13 Kristi Giles, Quentin [address] [place] [address]12 Pharmacist Internal Medicine 01/30/22 06/05/24 Birgit Franklin PharmD [address] [place] [address] 19067 Pharmacist Internal Medicine 06/06/24 documented as of this encounter
--- OUTSIDE RECORDS SUMMARY | 2024-12-31 03:47 | XMS_ITS | Encounter Summary ---
Author Organization [employer] Address [address] [facility] 7t [place] [address] Care Team Providers Care Car Carder Name Role Phone Balaji Quinones MD Primary Care Provide r Kristi Giles PharmD Unavailable + Birgit Franklin PharmD Unavailable [phone] Encounter Details Date Type Department Care Team (Late st Contact Info) Description 09/08/2022 [facility] [address] [place] [address] Balaji Quinones MD [address] [place], [place] [phone] Social History Tobacco Use Types Packs/Day Years [...] Description 01/27/2025 1:30 PM EST Office Visit [facility] [address] [place] [address] [phone] Balaji Quinones MD [address] [place] [address] [phone] 04/28/2025 10:30 AM EDT Medication Management [facility] [address] [place] [address] Birgit Franklin [place] [address] documented as of this encounter Goals Goal [...] on filedocumented in this encounter Care Teams Car Carder Relationship Specialty Start Date End Date Balaji Quinones MD [address] [place] [address] PCP - General Internal Medicine 11/25/13 Kristi Giles PharmD [address] [place] [address] 19854 Pharmacist Internal Medicine 01/30/22 06/05/24 Birgit Franklin PharmD [address] [place] [address] Pharmacist Internal Medicine 06/06/24 documented as of this encounter
--- OUTSIDE RECORDS SUMMARY | 2024-12-31 03:47 | XMS_ITS | Encounter Summary ---
Author Organization [email or web address] Address [address] [facility] [address] 7[address] [place] [address] Care Team Providers Care Textile Machinery Instructor Name Role Phone Balaji Quinones MD Primary Care Provide r Kristi Giles PharmD Unavailable + Birgit Franklin PharmD Unavailable [phone] Reason for Visit * Reason Comments Med Refill Encounter Details Date Type Department Care Team ([facility] st Contact Info) Description 04/19/2023 Refill [facility] [address] [place] [address] Balaji Quinones MD [address] [place] [address] Primary hypertension; Folliculitis Social History Tobacco Use [...] 08/2023 1:30 PM Faviola Srivastava [place] * How difficult have these problems made it for you to do your work, take care of things at home, or get along with other people? Answer Date of Assessment Author Not difficult at all 04/19/2023 1:30 PM Faviola Nielsen [place] * Over the past 2 weeks, [...] Description 01/27/2025 1:30 PM EST Office Visit [facility] [address] [place] [address] Balaji Quinones MD [address] [place] [address] 04/28/2025 10:30 AM EDT Medication Management [facility] [address] [place] [address] Birgit Franklin PharmD [address] [place] [address] documented as of this encounter Goals Goal [...] Hypertension 122/62(2024 11:26 AM EDT) No Kristi Glies PharmD Follow the DASH diet Diet No [...] documented as of this encounter Care Teams Textile Machinery Instructor Relationship Specialty Start Date End Date Balaji Quinones MD [address] [place] [address] PCP - General Internal Medicine 11/25/13 Kristi Giles PharmD [address] [place] [address] Pharmacist Internal Medicine 01/30/22 06/05/24 Birgit Franklin PharmD [address] [place] [address] Pharmacist Internal Medicine 06/06/24 documented as of this encounter
--- OUTSIDE RECORDS SUMMARY | 2024-12-31 03:48 | XMS_ITS | Encounter Summary ---
Author Organization [employer] Address [address] [facility] [address] 7[address] [place] [address] Care Team Providers Care Food Safety Coordinator Name Role Phone Balaji Quinones MD Primary Care Provide r Kristi Giles PharmD Unavailable + Birgit Franklin PharmD Unavailable [phone] Reason for Visit * Reason Comments Med Refill Encounter Details Date Type Department Care Team ([facility] st Contact Info) Description 12/24/2023 Refill [facility] [address] [place] [address] Balaji Quinones MD [address] [place] [address] Folliculitis Social History Tobacco Use Types Packs/Day [...] Description 01/27/2025 1:30 PM EST Office Visit [facility] [address] [place] [address] Balaji Quinones MD [address] [place] [address] 04/28/2025 10:30 AM EDT Medication Management [facility] [address] [place] [address] Birgit Franklin, SarayD [address] [place] [address] documented as of this encounter Goals Goal [...] documented as of this encounter Care Teams Food Safety Coordinator Relationship Specialty Start Date End Date Balaji Quinones MD [address] [place] [address] PCP - General Internal Medicine 11/25/13 Kristi Giles, Quentin [address] [place] [address] 21619 Pharmacist Internal Medicine 01/30/22 06/05/24 Birgit Franklin PharmD [address] [place] [address] Pharmacist Internal Medicine 06/06/24 documented as of this encounter
--- OUTSIDE RECORDS SUMMARY | 2024-12-31 03:48 | XMS_ITS | Encounter Summary ---
Author Organization [employer] Address [address] [facility] 7t [place] [address] Care Team Providers Care Library Technician Name Role Phone Balaji Quinones MD Primary Care Provide r Kristi Giles PharmD Unavailable + Birgit Franklin PharmD Unavailable [phone] Encounter Details Date Type Department Care Team ([facility] Contact Info) Description 06/22/2022 Abstract [facility] [address] [place] [address] Balaji Quinones MD [address] [place] [address] [phone] Social History Tobacco Use Types Packs/Day Years [...] Upcoming Encounters Date Type Department Care Team ([facility] Contact Info) Description 01/27/2025 1:30 PM EST Office Visit [facility] [address] [place] [address] Balaji Quinones MD [address] [place] [address] 04/28/2025 10:30 AM EDT Medication Management [facility] [address] [place] [address] Birgit Franklin PharmD [address] [place] [address] documented as of this encounter Goals Goal [...] EDT Recommended 10 year follow up ( [facility] ) us Historical Provider HEALTH MAINTENANCE Final Result documented in this encounter Visit Diagnoses Not on filedocumented in this encounter Care Teams Library Technician Relationship Specialty Start Date End Date Balaji Quinones MD [address] [place] [address] PCP - General Internal Medicine 11/25/13 Kristi Giles PharmD [address] [place] [address] Pharmacist Internal Medicine 01/30/22 06/05/24 Birgit Franklin, SarayD [address] [place] [address] Pharmacist Internal Medicine 06/06/24 documented as of this encounter
--- OUTSIDE RECORDS SUMMARY | 2024-12-31 03:48 | XMS_ITS | Encounter Summary ---
Author Organization [employer] Address 75 [facility] 7t [place] [address] Care Team Providers Care Respiratory Care Specialist Name Role Phone Balaji Quinones MD Primary Care Provide r Kristi Giles PharmD Unavailable + Birgit Franklin PharmD Unavailable + [phone] Reason for Visit * Reason Comments Med Refill Encounter Details Date Type Department Care Team (Late st Contact Info) Description 05/11/[address] [facility] 230 [place] [address] Balaji Quinones MD [address] [place] [address] [phone] Swelling of right middle finger Social History [...] Description 01/27/2025 1:30 PM EST Office Visit [facility] 230 [place] [address] Balaji Quinones MD [address] [place] [address] 04/28/2025 10:30 AM EDT Medication Management [facility] [address] [facility] [place] [address] Birgit Franklin PharmD 230 [place], [place] documented as of this encounter Goals [...] finger documented in this encounter Care Teams Respiratory Care Specialist Relationship Specialty Start Date End Date Balaji Quinones [place] [address] PCP - General Internal Medicine 11/25/13 Kristi Giles PharmD Maria Isabel [place], [place] [phone] Pharmacist Internal Medicine 01/30/22 06/05/24 Birgit Franklin PharmD [place] [facility] [place] [address] Pharmacist Internal Medicine 06/06/24 documented as of this encounter
--- OUTSIDE RECORDS SUMMARY | 2024-12-31 03:49 | XMS_ITS | Encounter Summary ---
Author Organization [employer] Address 75 [facility] 7t [place] [address] Care Team Providers Care Cold Rolling Supervisor Name Role Phone Balaji Quinones MD Primary Care Provide r Kristi Giles PharmD Unavailable + Birgit Franklin PharmD Unavailable [phone] Reason for Visit * Reason Comments Med Refill Encounter Details Date Type Department Care Team (Late st Contact Info) Description 04/17/[address] [facility] 230 [place] [address] Brook Guerrero MD 230 [place], [place] [phone] Other chronic pain Social History Tobacco Use [...] Department Care Team (Late Contact Info) Description 01/27/2025 1:30 PM EST [address] [facility] 230 [place] [address] Balaji Quinones MD [address] [place] [address] 04/28/2025 10:30 AM EDT Medication Management [facility] [address] [facility] [place] [address] Birgit Franklin PharmD 230 [place], [place] documented as of this encounter [...] pain documented in this encounter Care Teams Cold Rolling Supervisor Relationship Specialty Start Date End Date Balaji Quinones [place] [address] PCP - General Internal Medicine 11/25/13 Kristi Giles PharmD Maria [place], [place] Pharmacist Internal Medicine 01/30/22 06/05/24 Birgit Franklin PharmD [place] [facility] [place] Pharmacist Internal Medicine 06/06/24 documented as of this encounter
--- OUTSIDE RECORDS SUMMARY | 2024-12-31 03:49 | XMS_ITS | Encounter Summary ---
Author Organization [employer] Address [address] [facility] [address] 7t [place] [address] Care Team Providers Care Staffing Recruiter Name Role Phone Balaji Quinones MD Primary Care Provide r Birgit Franklin PharmD Unavailable [phone] Encounter Details Date Type Department Care Team ([facility] st Contact Info) Description 07/08/2024 Telephone [facility] 230 [place], [place] [phone] Balaji Quinones MD 230 [place], [place] [phone] Social History Tobacco Use Types Packs/Day Years [...] Description 01/27/2025 1:30 PM EST Office Visit [facility] [address] [place] [address] Balaji Quinones MD [address] [place] [address] 04/28/2025 10:30 AM EDT Medication Management [facility] [address] [place] [address] Birgit Franklin PharmD [address] [place] [address] documented as of this encounter Goals Goal [...] 5 1:59 PM EDT) No Kristi Giles, Quentin documented as of this encounter Visit Diagnoses Not on filedocumented in this encounter Additional Health Concerns Assessment Noted Time PHQ-9 Depression Total Score: 0 05/16/19 25 11:46 AM EDT documented as of this encounter Care Teams Staffing Recruiter Relationship Specialty Start Date End Date Balaji Quinones MD [address] [place] [address] PCP - General Internal Medicine 11/25/13 Birgit Franklin PharmD [address] [place] [address] Pharmacist Internal Medicine 06/06/24 documented as of this encounter
--- OUTSIDE RECORDS SUMMARY | 2024-12-31 03:49 | XMS_ITS | Encounter Summary ---
Author Organization [employer] Address 75 [facility] 7t [place] [address] Care Team Providers Care Cut Off Worker Name Role Phone Balaji Quinones MD Primary Care Provide r Kristi Giles PharmD Unavailable + Birgit Franklin PharmD Unavailable + Reason for Visit * Reason Comments Med Refill Encounter Details Date Type Department Care Team (Late st Contact Info) Description 10/27/2022 Refill [facility] 230 [place] [address] Clau Pascual ANP 230 [place] [address] Tinea pedis of both feet Social History [...] Description 01/27/2025 1:30 PM EST Office Visit [facility] [address] [place] [address] [phone] Balaji Quinones MD 230 [place] [address] 04/28/2025 10:30 AM EDT Medication Management [facility] [address] [place], [place] [phone] Birgit Franklin PharmD 230 [place] [address] documented as of this encounter Goals Goal [...] feet documented in this encounter Care Teams Cut Off Worker Relationship Specialty Start Date End Date Balaji Quinones MD [address] [place] [address] PCP - General Internal Medicine 11/25/13 Kristi Giles PharmD [address] [place] [address] Pharmacist Internal Medicine 01/30/22 06/05/24 Birgit Franklin PharmD [address] [place] [address] Pharmacist Internal Medicine 06/06/24 documented as of this encounter
--- OUTSIDE RECORDS SUMMARY | 2024-12-31 03:49 | XMS_ITS | Encounter Summary ---
Author Organization [employer] Address 75 [facility] 7t [place] [address] Care Team Providers Care Pallet Rectifier Name Role Phone Balaji Quinones MD Primary Care Provide r Kristi Giles PharmD Unavailable + Birgit Franklin PharmD Unavailable [phone] Reason for Visit * Reason Comments Med Refill Encounter Details Date Type Department Care Team (Late st Contact Info) Description 10/27/2022 Refill [facility] [address] [place] [address] [phone] Balaji Quinones MD [address] [place] [address] [phone] Dermatitis of lower extremity Social History Tobacco [...] Description 01/27/2025 1:30 PM EST Office Visit [facility] [address] [place] [address] [phone] Balaji Quinones MD [address] [place] [address] 04/28/2025 10:30 AM EDT Medication Management [facility] 230 [place] [address] Birgit Franklin PharmD 230 [place] [address] documented as of this encounter Goals Goal [...] extremity documented in this encounter Care Teams Pallet Rectifier Relationship Specialty Start Date End Date Balaji Quinones MD [address] [place] [address] PCP - General Internal Medicine 11/25/13 Kristi Giles PharmD [address] [place] [address] Pharmacist Internal Medicine 01/30/22 06/05/24 Birgit Franklin PharmD [address] [place] [address] Pharmacist Internal Medicine 06/06/24 documented as of this encounter
--- OUTSIDE RECORDS SUMMARY | 2024-12-31 03:50 | XMS_ITS | Encounter Summary ---
Author Organization [employer] Address 75 [facility] 7t [place] [address] Care Team Providers Care Access Rep Name Role Phone Balaji Quinones MD Primary Care Provide r Kristi Giles PharmD Unavailable + Birgit Franklin PharmD Unavailable [phone] Reason for Visit * Reason Comments Med Refill Encounter Details Date Type Department Care Team (Late st Contact Info) Description 01/30/[address] [facility] [address] [place] [address] Balaji Quinones MD [address] [place] [address] [phone] Social History Tobacco Use Types Packs/Day Years [...] 1:30 PM EST Office Visit [facility] 230 [place], [place] [phone] Balaji Quinones MD [address] [place] [address] [phone] 04/28/2025 10:30 AM EDT Medication Management [facility] 230 [place] [address] Birgit Franklin PharmD 230 [place] [address] documented as of this encounter Goals Goal [...] on filedocumented in this encounter Care Teams Access Rep Relationship Specialty Start Date End Date Balaji Quinones MD [address] [place] [address] PCP - General Internal Medicine 11/25/13 Kristi Giles PharmD [address] [place] [address] Pharmacist Internal Medicine 01/30/22 06/05/24 Birgit [place] [address] Pharmacist Internal Medicine 06/06/24 documented as of this encounter
--- OUTSIDE RECORDS SUMMARY | 2024-12-31 03:50 | XMS_ITS | Encounter Summary ---
Author Organization [employer] Address 75 [facility] 7t [place] [address] Care Team Providers Care Steel Grinder Name Role Phone Balaji Quinones MD Primary Care Provide r Kristi Giles PharmD Unavailable + Birgit Franklin PharmD Unavailable [phone] Reason for Visit * Reason Comments Med Refill Encounter Details Date Type Department Care Team (Late Contact Info) Description 03/08/2023 Refill [facility] [address] [place] [address] Balaji Quinones MD [address] [place] [address] [phone] Folliculitis Social History Tobacco Use Types Packs/Day [...] 1:30 PM EST Office Visit [facility] 230 [place], [place] [phone] Balaji Quinones MD [address] [place] [address] [phone] 04/28/2025 10:30 AM EDT Medication Management [facility] 230 [place] [address] Birgit Franklin PharmD 230 [place], [place] documented as of this encounter Goals [...] follicles documented in this encounter Care Teams Steel Grinder Relationship Specialty Start Date End Date Balaji Quinones MD [address] [place] [address] PCP - General Internal Medicine 11/25/13 Kristi Giles PharmD [address] [place] [address] Pharmacist Internal Medicine 01/30/22 06/05/24 Birgit Franklin [place] [address] Pharmacist Internal Medicine 06/06/24 documented as of this encounter
--- OUTSIDE RECORDS SUMMARY | 2024-12-31 03:50 | XMS_ITS | Encounter Summary ---
Author Organization [employer] Address 75 [facility] [address] 7t [place] [address] Care Team Providers Care Export Freight Clerk Name Role Phone Balaji Quinones MD Primary Care Provide r Kristi Giles PharmD Unavailable + Birgit Franklin PharmD Unavailable [phone] Reason for Visit * Reason Comments Med Refill Encounter Details Date Type Department Care Team (Late st Contact Info) Description 01/28/2023 Refill [facility] 230 [place] [address] Balaji Quinones MD 230 [place] [address] Social History Tobacco Use Types Packs/Day Years [...] Description 01/27/2025 1:30 PM EST Office Visit [facility] 230 [place], [place] [phone] Balaji Quinones [place] [address] 04/28/2025 10:30 AM EDT Medication Management [facility] 230 [place], [place] [phone] Birgit Franklin [place] [address] documented as of this encounter Goals Goal [...] on filedocumented in this encounter Care Teams Export Freight Clerk Relationship Specialty Start Date End Date Balaji Quinones MD Maria Isabel [place], [place] [phone] PCP - General Internal Medicine 11/25/13 Kristi Giles PharmD [address] [place] [address] [phone] Pharmacist Internal Medicine 01/30/22 06/05/24 Birgit Franklin PharmD [facility] [place] [address] Pharmacist Internal Medicine 06/06/24 documented as of this encounter
--- OUTSIDE RECORDS SUMMARY | 2024-12-31 03:50 | XMS_ITS | Encounter Summary ---
Author Organization [employer] Address 75 [facility] 7t [place] [address] Care Team Providers Care Grinder Dresser Name Role Phone Balaji Quinones MD Primary Care Provide r Kristi Giles PharmD Unavailable + Birgit Franklin PharmD Unavailable [phone] Reason for Visit * Reason Comments Med Refill Encounter Details Date Type Department Care Team (Late st Contact Info) Description 03/01/2023 Refill [facility] 230 [place], [place] [phone] Balaji Quinones MD 230 [place], [place] [phone] Type 2 diabetes mellitus without complication, unspecified whether termite control representative insulin use ([facility]) Social History Tobacco Use Types Packs/Day [...] Description 01/27/2025 1:30 PM EST Office Visit [facility] 230 [place], [place] [phone] Balaji Quinones MD 230 [place], [place] [phone] 04/28/2025 10:30 AM EDT Medication Management [facility] 230 [place] [address] Birgit Franklin PharmD 230 [place] [address] documented as of this encounter Goals Goal [...] 2 diabetes mellitus without complication, unspecified whether termite control representative insulin use documented in this encounter Care Teams Grinder Dresser Relationship Specialty Start Date End Date Balaji Quinones MD [address] [place] [address] PCP - General Internal Medicine 11/25/13 Kristi Giles PharmD [address] [place] [address] Pharmacist Internal Medicine 01/30/22 06/05/24 Birgit Franklin PharmD [address] [place] [address] Pharmacist Internal Medicine 06/06/24 documented as of this encounter
--- OUTSIDE RECORDS SUMMARY | 2024-12-31 03:52 | XMS_ITS | Encounter Summary ---
Author Organization [employer] Address [address] [facility] [address] 7t [place] [address] Care Team Providers Care Agile Tester Name Role Phone Balaji Quinones MD Primary Care Provide r Kristi Giles PharmD Unavailable + Birgit Franklin PharmD Unavailable [phone] Reason for Visit * Reason Onset Date Comments Med Refill 01/30/2023 Encounter Details Date Type Department Care Team ([facility] st Contact Info) Description 01/30/2023 Telephone [facility] 230 [place] [address] Balaji Quinones MD 230 [place] [address] Med Refill Social History Tobacco Use Types [...] 81 MG EC tablet Please sent to [facility] [place], [place] - 230 [facility] Pt is due on holidays but is requesting if medication could be given before than. documented in this encounter Plan of Treatment Upcoming Encounters Date Type Department Care Team (Late st Contact Info) Description 01/27/2025 1:30 PM EST Office Visit [facility] [address] [place] [address] Balaji Quinones MD [address] [place] [address] 04/28/2025 10:30 AM EDT Medication Management [facility] [address] [place] [address] Birgit Franklin PharmD [address] [place] [address] documented as of this encounter Goals Goal [...] on filedocumented in this encounter Care Teams Agile Tester Relationship Specialty Start Date End Date Balaji Quinones MD [address] [place] [address] PCP - General Internal Medicine 11/25/13 Kristi Giles, SarayD 230 [place] [address] Pharmacist Internal Medicine 01/30/22 06/05/24 Birgit Franklin PharmD 230 [place] [address] Pharmacist Internal Medicine 06/06/24 documented as of this encounter
--- OUTSIDE RECORDS SUMMARY | 2024-12-31 03:53 | XMS_ITS | Encounter Summary ---
Author Organization [employer] Address 75 [facility] 7t [place] [address] Care Team Providers Care Sheetmetal Patternmaker Name Role Phone Balaji Quinones MD Primary Care Provide r Kristi Giles PharmD Unavailable + Birgit Franklin PharmD Unavailable [phone] Reason for Visit * Reason Comments Med Refill Encounter Details Date Type Department Care Team (Late st Contact Info) Description 12/30/2022 Refill [facility] [address] [place] [address] Balaji Quinones MD [address] [place] [address] [phone] Tinea pedis of both feet Social History [...] Description 01/27/2025 1:30 PM EST Office Visit [facility] [address] [place] [address] [phone] Balaji Quinones MD [address] [place] [address] [phone] 04/28/2025 10:30 AM EDT Medication Management [facility] 230 [place] [address] Birgit Franklin PharmD 230 [place] [address] documented as of this encounter Goals Goal [...] feet documented in this encounter Care Teams Sheetmetal Patternmaker Relationship Specialty Start Date End Date Balaji Quinones MD [address] [place] [address] PCP - General Internal Medicine 11/25/13 Kristi Giles PharmD [address] [place] [address] Pharmacist Internal Medicine 01/30/22 06/05/24 Birgit Franklin PharmD [address] [place] [address] Pharmacist Internal Medicine 06/06/24 documented as of this encounter
--- OUTSIDE RECORDS SUMMARY | 2024-12-31 03:53 | XMS_ITS | Encounter Summary ---
Author Organization [employer] Address 75 [facility] 7t [place] [address] Care Team Providers Care Hockey Player Name Role Phone Balaji Quinones MD Primary Care Provide r Kristi Giles PharmD Unavailable + Birgit Franklin PharmD Unavailable [phone] Reason for Visit * Reason Comments Med Refill Encounter Details Date Type Department Care Team (Late st Contact Info) Description 01/30/2023 Refill [facility] [address] [place] [address] Balaji Quinones MD [address] [place] [address] [phone] Social History Tobacco Use Types Packs/Day Years [...] Description 01/27/2025 1:30 PM EST Office Visit [facility] 230 [place], [place] [phone] Balaji Quinones MD [address] [place] [address] [phone] 04/28/2025 10:30 AM EDT Medication Management [facility] 230 [place] [address] Birgit Franklin PharmD 230 [place] [address] documented as of this encounter Goals Goal [...] on filedocumented in this encounter Care Teams Hockey Player Relationship Specialty Start Date End Date Balaji Quinones MD [address] [place] [address] PCP - General Internal Medicine 11/25/13 Kristi Giles PharmD [address] [place] [address] Pharmacist Internal Medicine 01/30/22 06/05/24 Birgit [place] [address] Pharmacist Internal Medicine 06/06/24 documented as of this encounter
--- OUTSIDE RECORDS SUMMARY | 2024-12-31 03:53 | XMS_ITS | Encounter Summary ---
Author Organization [employer] Address [address] [facility] [address] 7t [place] [address] Care Team Providers Care Maintenance Leader Name Role Phone Balaji Quinones MD Primary Care Provide r Birgit Franklin PharmD Unavailable [phone] Reason for Visit * Reason Onset Date Comments Med Refill 10/06/2024 Encounter Details Date Type Department Care Team ([facility] st Contact Info) Description 10/06/2024 Telephone [facility] 230 [place] [address] Balaji Quinones MD 230 [place], [place] [phone] Med Refill Social History Tobacco Use Types [...] 250 MG tablet To be sent to: [facility] *Script documented in this encounter Plan of Treatment Upcoming Encounters Date Type Department Care Team (Late st Contact Info) Description 01/27/2025 1:30 PM EST Office Visit [facility] [address] [place] [address] Balaji Quinones MD 230 [place] [address] 04/28/2025 10:30 AM EDT Medication Management [facility] [address] [place] [address] Birgit Franklin, PharmD 230 [place] [address] documented as of this encounter Goals Goal [...] as of this encounter Care Teams Maintenance Leader Relationship Specialty Start Date End Date Balaji Quinones MD 230 [place] [address] PCP - General Internal Medicine 11/25/13 Birgit Franklin PharmD 230 [place] [address] Pharmacist Internal Medicine 06/06/24 documented as of this encounter
--- OUTSIDE RECORDS SUMMARY | 2024-12-31 03:53 | XMS_ITS | Encounter Summary ---
Author Organization [employer] Address [address] [facility] [address] 7t [place] [address] Care Team Providers Care Vacuum Kettle Cook Name Role Phone Balaji Quinones MD Primary Care Provide r Birgit Franklin PharmD Unavailable [phone] Reason for Visit * Reason Comments Med Refill Encounter Details Date Type Department Care Team ([facility] st Contact Info) Description 10/06/2024 Refill [facility] 230 [place] [address] Balaji Quinones MD 230 [place] [address] Social History Tobacco Use Types Packs/Day Years [...] Description 01/27/2025 1:30 PM EST Office Visit [facility] [address] [place] [address] Balaji Quinones MD [address] [place] [address] 04/28/2025 10:30 AM EDT Medication Management [facility] [address] [place] [address] Birgit Franklin PharmD [address] [place] [address] documented as of this encounter Goals Goal [...] documented as of this encounter Care Teams Vacuum Kettle Cook Relationship Specialty Start Date End Date Balaji Quinones MD 230 [place] [address] PCP - General Internal Medicine 11/25/13 Birgit Franklin PharmD 230 [place] [address] Pharmacist Internal Medicine 06/06/24 documented as of this encounter
--- OUTSIDE RECORDS SUMMARY | 2024-12-31 03:53 | XMS_ITS | Clinical Summary ---
Author Organization [employer] Address [address] [place] [address] Care Team Providers Care Supervisor Inspection Room Name Role Phone Balaji Quinones MD Primary Care Provide r Birgit Franklin PharmD Unavailable Allergies No known active allergies [...] stripIndications: Type 2 diabetes mellitus with hyperlipidemia (HCC) TEST BLOOD SUGAR ONCE DAILY 100 each 12/28/19 24 Active TRUEplus Lancets 33G miscIndications:T ype 2 diabetes mellitus with hyperlipidemia (HCC) TEST BLOOD SUGAR ONCE DAILY ICD10= 100 each 12/28/19 24 Active metFORMIN (Glucophage) 1000 MG tabletIndications :Type 2 diabetes mellitus without complication, unspecified whether marine oil terminal superintendent insulin use TAKE 1 TABLET BY MOUTH TWICE DAILY [...] whether marine oil terminal superintendent insulin use Take 1 tablet (45 mg) by mouth Once per day. 90 tablet 3 02/13/19 25 Active Petrolatum 42 % ointment APPLY TO THE AFFECTED AREA(S) TOPICALLY TWICE DAILY 454 g 5 04/18/19 25 Active Alcohol Swabs (Alcohol Prep) 70 % pads USE DIRECTED TO TEST BLOOD SUGAR 100 each 11 05/07/19 25 Active FT Calcium 600 MG tablet Take 1 tablet by mouth 2 times daily. 05/15/19 25 Active finasteride (Proscar) 5 MG tablet Take 1 tablet by mouth Once per day. 04/04/19 25 Active aspirin (Aspirin Low Dose) 81 MG EC tablet Take 1 tablet (81 mg) by mouth in the morning. 90 tablet 2 06/24/19 25 Active abiraterone (Zytiga) 250 MG chemo tablet Take 1,000 mg by mouth Once per day. 07/02/19 25 Active amLODIPine (Norvasc) 10 MG tabletIndications :Primary hypertension Take 1 tablet (10 mg) by mouth in the morning. 90 tablet 1 09/17/19 25 Active carvedilol (Coreg) 3.125 MG tabletIndications :Primary hypertension Take 1 tablet (3.125 mg) by mouth with breakfast and with evening meal. 180 tablet 1 10/22/19 25 Active mineral oil-hydrophil petrolat ointment Topical Ointment APPLY TO THE AFFECTED AREA(S) TOPICALLY TWICE DAILY 454 g 5 10/29/19 25 Active predniSONE (Deltasone) 2.5 MG tablet Take 1 tablet by mouth 2 times daily. 10/21/19 Active polyvinyl alcohol (Liquifilm Tears) 1.4 % ophthalmic solutionIndicatio ns:Dry eyes PLACE 1 DROP IN EACH EYE THREE TO FOUR TIMES DAILY 15 mL 2 11/05/19 25 Active glipiZIDE XL (Glucotrol XL) 5 MG 24 hr tabletIndications :Type 2 diabetes mellitus without complication, unspecified whether marine oil terminal superintendent insulin use TAKE 1 TABLET BY MOUTH EVERY DAY WITH BREAKFAST DO NOT BREAK, CRUSH, DISSOLVE OR CHEW 90 tablet 1 11/05/19 Active triamcinolone (Kenalog) 0.025 % creamIndications: Dermatitis of lower extremity APPLY 1 GRAM TO AFFECTED AREA(S) TWICE DAILY DIRECTED 60 g 1 12/19/19 25 Active ketoconazole (NIZOral) 2 % creamIndications: Tinea pedis of both feet APPLY TOPICALLY TO AFFECTED AREA(S) EVERY MORNING 30 g 1 12/19/19 25 Active triamcinolone (Kenalog) 0.025 % creamIndications: Dermatitis of lower extremity APPLY 1 GRAM TO AFFECTED AREA(S) TWICE DAILY DIRECTED 60 g 10/29/19 25 025 Discontinued ketoconazole (NIZOral) 2 % creamIndications: Tinea pedis of both feet APPLY TOPICALLY TO THE AFFECTED AREA(S) EVERY MORNING 30 g 10/29/19 25 025 Discontinued Active Problems Problem Noted Date Diagnosed Date 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 His cdndmwwb-xt-jis brought him to [facility]. Denied headache, chest pain, SOB, n/v/d, or [...] follow up scheduled with Dr. Peres his spray crew Seen by Neurology who ordered Brain MRI that showed: No acute brain abnormality. No gross abnormal enhancing lesion. 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 Assessment & Plan (02/14/2024 4:19 PM EST): Pt seen at our [facility] 12/28/[address] Lloyd Puckett After pt was walking on sidewalk, felt sudden dizzy, unable to describe dizziness, and the next thing he remembers is being on the ground with facial injuries, abrasions on knees and left wrist. His rbyovjre-sp-ovg brought him to [facility]. Denied headache, chest pain, SOB, n/v/d, or recent illness. has many year h/o similar recurrent episodes of dizziness that he cannot describe, occasionally falls. ECG today shows sinus arrythmia, IVCD, PACs. Pt tells me he already has a follow up scheduled with Dr. Peres his spray crew Plan: Obtain ECHO, ECG, EEG. CT of [...] has appointment for an ultrasound coming up [facility] care 05/11/2022 Assessment & Plan (05/15/2024 10:56 [...] of 3.9 cm. Pt was referred to [facility]. He was seen 11/06/2016 recommended [...] of 3.9 cm. Pt was referred to [facility]. He was seen 11/06/2016 recommended [...] of 3.9 cm. Pt was referred to [facility]. He was seen 11/06/2016 recommended [...] of 3.9 cm. Pt was referred to [facility]. He was seen 11/06/2016 recommended [...] of 3.9 cm. Pt was referred to [facility]. He was seen 11/06/2016 recommended [...] Encounters Date Type Department Care Team Description 12/18/2024 Refill [facility] [address] [place] [address] Balaji Quinones MD Dermatitis of lower extremity; Tinea pedis of both feet 12/03/2024 Telephone [facility] [address] [place] [address] Balaji Quinones MD January11/03/2024 Orders Only [facility] MEDICINE [address] [place] [address] Balaji Quinones MD 11/02/2024 Refill [facility] [address] [place] [address] Balaji Quinones MD Type 2 diabetes mellitus without complication, unspecified whether fpc insulin use ([facility]) 11/01/2024 Refill [facility] [address] [place] [address] Balaji Quinones MD Dry eyes 10/29/2024 Travel 10/24/2024 Telephone [facility] [address] [facility] [place] [address] Balaji Quinones MD 10/24/2024 Refill [facility] [place] [address] Balaji Quinones MD Dermatitis of lower extremity; Tinea pedis of both feet 10/21/2024 2:15 PM EDT Office Visit [facility] [address] [place] [address] Balaji Quinones MD Type 2 diabetes mellitus without complication, without long-term current use of insulin (CMS/HCC) (Primary Dx); Prostate cancer, primary, with metastasis from prostate to other site (CMS/HCC); Primary hypertension; Mixed hyperlipidemia 10/21/2024 Travel 10/20/2024 Telephone [facility] [address] [facility] [place] [address] Balaji Quinones MD chart prep 10/14/2024 Orders Only [facility] [place] [address] Raquel Kirk, RN Screening for tuberculosis 10/06/2024 Telephone [facility] [address] [place] [address] Balaji Quinones MD Med Refill 10/06/2024 Refill [facility] [address] [facility] [place] [address] Balaji Quinones MD from Last 3 Months Immunizations Immunization Administration [...] Office Visit [facility] [address] [place] [phone] Balaji Quinones MD [address] [place] [address] 04/28/2025 10:30 AM EDT Medication Management [facility] [address] [place] [phone] Birgit Franklin, PharmD [address] [place] [address] Health Maintenance Due Date Last Done Comments CT Colonography 1955 FIT DNA/Cologuard 1955 FIT 1955 FOBT 1955 Sigmoidoscopy 1955 Diabetes: Foot Exam 1964 Diabetes: Urine Protein Screening 06/18/2024 06/19/2023, 01/12/2021, 11/03/2019 COVID-19 Vaccine ( season) 2024 11/22/2023, 03/25/2021, 09/21/2020, Additional history exists Influenza Vaccine (#1) 2024 4, 12/12/2022, 01/03/2022, Additional history exists Diabetes: Hemoglobin A1C 01/20/2025 025, 07/22/2024, 02/14/2024, Additional history exists Alcohol/Substance Use Screening 02/13/2025 02/14/2024 Depression Screening 05/15/2025 05/15/2024, 05/16/19 25 SDOH Screening 05/15/2025 05/15/2024 Tobacco Screening 10/29/2025 10/29/2024 Lipid Panel 11/03/2025 11/03/2024, 05/0 08/2023, 07/05/2022, Additional history exists Eye Exam 05/27/2026 05/27/2024, 041 06/2024, 05/27/2024, Additional history exists Colonoscopy 07/11/2027 07/10/2017 [...] Procedure Name Priority Date/Time Associated Diagnosis Comments T-SPOT(R).TB Routine 11/03/2024 11:21 AM EDT LIPID PANEL, STANDARD Routine 11/03/2024 11:21 AM EDT Mixed hyperlipidemia COMPREHENSIVE METABOLIC PANEL Routine 11/03/2024 11:21 AM EDT Type 2 diabetes mellitus without complication, without long-term current use of insulin ([facility]) BD DEXA AXIAL Routine 10/22/2024 2:00 PM EDT POCT GLYCATED HEMOGLOBIN, TOTAL Routine 10/21/2024 1:59 PM EDT Type 2 diabetes mellitus without complication, without long-term current use of insulin ([facility]) POCT GLUCOSE Routine 10/21/2024 1:58 PM EDT Type 2 diabetes mellitus without complication, without long-term current use of insulin ([facility]) ALBUMIN, RANDOM URINE W/CREATININE Routine 06/19/2023 12:00 [...] Recently Relevant to Health Maintenance Results * T-SPOT??.TB (11/03/2024 11:21 AM EDT) T Spot TB Negative Negative [facility] Comment:A negative test resu lt does not exclude the possibilityof exposure to or infection with Mycobacteriumtuberculosis (M. tuberculosis). Patients with recentexposure to TB infected individuals exhibiting anegative T-SPOT.TB result should be considered forretesting within 6 weeks or if other relevant clinicalsymptoms indicate. Results from T-SPOT.TB testing mustbe used in conjunction with each individual'sepidemiological history, current medical status,and results of other diagnostic evaluations.The T-SPOT.TB test is qualitative and results arereported as positive, borderline, or negative, giventhat the test controls perform as expected. In linewith the Centers for Disease Control and Prevention's2010 recommendation to report quantitative measurementsalongside the qualitative result, the laboratoryprovides spot counts for informational purposes only.The T-SPOT.TB test should not be interpreted as aquantitative test. TS PANEL A 0 [facility] TS PANEL B 0 [facility] Negative Control Passed [facility] Positive Control Passed [facility] Comment:For additional infor mation, please refer tohttp://education.microDimensions/faq/UND176(This link is being provided for informational/educational purposes only.)THIS TEST WAS PERFORMED AT:[employer] [id number] [place] [address]PYIIURPMIREYA GRAVES MD,PHD 11/03/2024 11:2 1 AM EDT 11/03/2024 12:57 PM EDT Balaji Donnelly MD LAB BLOOD ORDERABLES Final Result Performing Organization Address [facility] Co de Phone Number [facility] [address] [place] [address] [phone] * (ABNORMAL) Lipid Panel, Standard (11/03/2024 11:21 AM EDT) Triglycerides 148 <150 mg/dL [facility] Comment:Desirable Triglyceri de: less than 150 mg/dLBorderline High Triglyceride 150-199 mg/dLHigh Triglyceride: 200-499 mg/dLVery High Triglyceride: greater than or equal to 5OO mg/dL Cholesterol 129 <200 mg/dL [facility] Comment:Desirable Cholestero l: less than 200 mg/dLBorderline High Cholesterol: 200-239 mg/dLHigh Cholesterol: greater than 239 mg/dL LDL Cholesterol Calculated 66 <100 mg/dL [facility] Comment:Desirable LDL: less than 100 mg/dLNear Optimal/Above Optimal LDL: 110- 129 mg/dLBorderline High LDL: 130-159 mg/dLHigh LDL: 160-189 mg/dLVery High LDL: greater than or equal to 190 mg/dL HDL Cholesterol 34(L) >40 mg/dL [facility] Comment:Desirable HDL: great er than 40 mg/dL Note: This HDL assay may give artificially low results in patients with liver disease. Blood Venous blood specimen / Unknown 11/03/2024 11:21 AM EDT 11/03/2024 12:57 PM EDT Balaji Donnelly MD LAB BLOOD ORDERABLES Final Result Performing Organization Address [facility]/ZIP Co de Phone Number [facility] [address] [place] [address] [phone] * (ABNORMAL) Comprehensive Metabolic Panel (11/03/2024 11:21 AM EDT) Sodium 135 135 - 145 mmol/L [facility] Potassium 3.8 3.3 - 5.1 mmol/L [facility] Chloride 99 96 - 108 mmol/L [facility] Carbon Dioxide 30(H) 22 - 29 mmol/L [facility] Anion Gap 10(L) 12 - 20 [facility] Urea Nitrogen (BUN) 11 9 - 16 mg/dL [facility] Creatinine, Serum 0.78 0.5 - 1.4 mg/dL [facility] Estimated Glomerular Filt Rate >60 [facility] Comment:Chronic Kidney Disea se: Estimated GFR < 60 mL/min/[id number] Kidney Disease: Estimated GFR < 15 mL/min/1.73m2 Glucose 249(H) 60 - 115 mg/dL [facility] Calcium 9.0 8.4 - 10.2 mg/dL [facility] Bilirubin, Total 1.1(H) 0.0 - 1.0 mg/dL [facility] Aspartate Amino Transferase 20 5 - 37 U/L [facility] Alanine Aminotransferase 13 0 - 40 U/L [facility] Total Protein 6.7 6.5 - 8.0 g/dL [facility] Albumin Level 4.2 3.5 - 5.0 g/dL [facility] Alkaline Phosphatase 46 39 - 117 U/L [facility] Blood Venous blood specimen / Unknown 11/03/2024 11:21 AM EDT 11/03/2024 12:57 PM EDT us Balaji Donnelly MD LAB BLOOD ORDERABLES Final Result [facility] [address] [place] [address] [phone] * BD DEXA Axial (10/22/2024 2:00 PM EDT) Anatomical Region Laterality Modality Body Radiographic Mirta ging 10/22/2024 2:00 PM EDT Narrative 10/22/2024 3:08 PM EDT [facility] [address] [place], [place] [address] Mammography Report Signed Patient: Paul Alonso MR#: [id number] 33 : 1955 Acct:[id number] Age/Sex: 69 / M ADM Date: 10/22/24 Loc: HO.MAMMO Attending Dr: Lm Rico MD Ordering Physician: Lm Rico MD Results: Date of Service: 10/22/24 Follow Up: Procedure(s): XR DEXA axial skeleton Accession Number(s): [id number] cc: Lm Rico MD; Balaji Sanderson MD EXAMINATION: DXA BONE DENSITY AXIAL HISTORY: M85.80 - Other specified disorders of bone density and structure, unspecified... TECHNIQUE: Simple Energy Dual energy absorptiometry (DEXA) of the lumbar [...] is a trademark of the [employer] [place] for Metabolic Bone Disease, a World Health Organization (WHO) Collaborating Center. Electronically signed by: Bladimir Gupta MD 10/22/2024 03:05 PM EDT RP Dictated By: Bladimir Gupta MD Signed By: <Electronically signed by Bladimir Gupta MD in OV> 10/22/24 1505 DD/ 1400 TD/TT: 10/22/24 1430 Golf Stud Riveter: Procedure Note Donotuseinterpreter, Image - 10/22/2024 [facility]'[address] [place] [address] Mammography Report Signed Patient: Jayda Alonso#: [id number] 33 : 5Acct:[id number] Age/Sex: 69 / MADM Date: 10/22/24 Loc: [facility] Attending Dr: Lm Rico MD Ordering Physician: Lm Rico MDResults: Date of Service: 10/22/24Follow Up: Procedure(s): XR DEXA axial skeleton Accession Number(s): [id number] cc: Lm Rico MD; Balaji Sanderson MD EXAMINATION: DXA BONE DENSITY AXIAL HISTORY: M85.80 - Other specified disorders of bone density and structure, unspecified... TECHNIQUE: Simple Energy Dual energy absorptiometry (DEXA) of the lumbar [...] is a trademark of the [employer] [place] [employer] Metabolic [employer] Disease, a World Health Organization (WHO) Collaborating Center. Electronically signed by: Bladimir Gupta MD 10/22/2024 03:05 PM EDT Dictated By: Bladimir Gupta MD Signed By: <Electronically signed by Bladimir Gupta MD in OV> 10/22/24 1505 DD/ 1400 TD/TT: 10/22/24 1430 Golf Stud Riveter: [facility] External Provider IMG DXA PROCEDURES Final Result * (ABNORMAL) POCT Hgb A1c (10/21/2024 1:59 PM EDT) Pathologist [facility] Hemoglobin A1C 6.6(A) 4.0 - 5.7 % QC Media Lot # [id number] Lot# Expiration Date 143, Blood 10/21/2024 1:59 PM EDT Balaji Donnelly MD POINT OF CARE TEST EN TER/EDIT ORDERABLES Final Result * (ABNORMAL) POCT Glucose (10/21/2024 1:58 PM EDT) Pathologist [facility] Glucose Blood, POC 206(A) 60 - 200 mg/dL QC Media Lot # [id number] Lot# Expiration Date [id number] Blood Capillary blood specimen / Unknown 10/21/2024 1:58 PM EDT us Balaji Donnelly MD POINT OF CARE TEST EN TER/EDIT ORDERABLES Final Result * Albumin, Random Urine W/Creatinine (06/19/2023 12:00 AM EDT) Creatinine, Urine 137.18 mg/dL [facility] Microalbumin Urine 21.0 mg/L [facility] Microalbum Creatinine Ratio Ur 15.3 <30 ug/mg cr [facility] Comment:Albumin/Creatinine R atio Reference Ranges: Normal: < 30 ug/mg creatinine Microalbuminuria: 30 - 300 ug/mg creatinineClinical Albuminuria: > 300 ug/mg creatinine Urine (Urine, Random) 06/19/2023 06/19/2023 Balaji Donnelly MD LAB URINE ORDERABLES Final Result [facility] [address] [place] [phone] * Hepatitis C Antibody with Reflex to HCV, RNA, Quantitative, Real-Time PCR (07/05/2022 8:13 AM EDT) Hepatitis C Antibody NON-REACT MADDY NON-REACT MADDY [facility] Index 0.04 <1.00 [facility] Comment: HCV antibody was non-reactive. There is no laboratory evidence of HCV infection. In most cases, no further action is required. However, if recent HCV exposure is suspected, a test for HCV RNA (test code 24649) is suggested. For additional information please refer to http://education.microDimensions/faq/RFP90s5 (This link is being provided for informational/ educational purposes only.) Blood Venous blood specimen / Unknown 07/05/2022 8:13 AM EDT 07/05/2022 8:14 AM EDT Unique JACLYN - 07/06/2022 11:54 AM EDT FASTING:YES FASTING: YES us Balaji Donnelly MD LAB BLOOD ORDERABLES Final Result [facility] [address], [place] [address] [facility] [address] [place] [address] * Colonoscopy (07/10/2017) Colonoscopy Normal Normal 07/10/2017 Shikha Morel - 07/10/2017 3:47 PM EDT Recommended 10 year follow up ( [facility] ) us Historical Provider HEALTH MAINTENANCE Final Result from Last 3 Months or Most Recently Relevant to Health Maintenance Insurance [facility] STANDARD MEDICARE Care Teams Supervisor Inspection Room Relationship Specialty Start Date End Date Balaji Quinones MD [address] [place] [address] PCP - General Internal Medicine 11/25/13 Birgit Franklin, Quentin [address] [place] [phone] Pharmacist Internal Medicine 06/06/24
--- OUTSIDE RECORDS SUMMARY | 2024-12-31 03:53 | XMS_ITS | Encounter Summary ---
Author Organization [[employer] Address [address] [place] [address] Care Team Providers Care Rv Mechanic Name Role Phone Balaji Quinones MD Primary Care Provide r Kristi Giles PharmD Unavailable + Birgit Franklin PharmD Unavailable [phone] Reason for Visit * Reason Onset Date Comments Durable Medical Equipment 01/30/2023 Encounter Details Date Type Department Care Team ([facility] st Contact Info) Description 01/30/2023 Telephone [facility] [address] [place] [address] Balaji Quinones MD [address] [place] [address] Durable Medical Equipment Social History Tobacco Use [...] and taking falls. Please contact pt @ [phone] [employer]ralt[employer] Speaker documented in this encounter Plan of Treatment Upcoming Encounters Date Type Department Care Team (Late st Contact Info) Description 01/27/2025 1:30 PM EST Office Visit [facility] [place] [address] Balaji [place] [address] 04/28/2025 10:30 AM EDT Medication Management [facility] [address] [place] [address] Birgit Franklin [place] [address] documented as of this encounter Goals Goal [...] on filedocumented in this encounter Care Teams Rv Mechanic Relationship Specialty Start Date End Date Balaji Quinones MD [address] [place], [place] [phone] PCP - General Internal Medicine 11/25/13 Kristi Giles PharmD [address] [place], [place] [phone] Pharmacist Internal Medicine 01/30/22 06/05/24 Birgit Franklin, SarayD [address] [place] [phone] Pharmacist Internal Medicine 06/06/24 documented as of this encounter
== END 2024-12-30 13:29 | disposition home or self-care (01) ==
LOC: HO.HPS 12:42
PROVIDERS: PCP Internal Medicine; Visit Provider Hospitalist
DX: R59.0 Localized enlarged lymph nodes (principal); C61 Malignant neoplasm of prostate; C77.1 Secondary and unspecified malignant neoplasm of intrathoracic lymph nodes; R91.8 Other nonspecific abnormal finding of lung field
CPT/HCPCS: 99214; G2211

== ENCOUNTER → 2024-12-30 12:41 | Outpatient (BNVA) | payer MEDICARE, MEDICAID, SELFPAY | PROVIDERS: PCP Internal Medicine; Visit Provider Hospitalist | DX: R59.0 Localized enlarged lymph nodes (principal); C61 Malignant neoplasm of prostate; C77.1 Secondary and unspecified malignant neoplasm of intrathoracic lymph nodes; R91.8 Other nonspecific abnormal finding of lung field; Z23 Encounter for immunization | CPT/HCPCS: 90471; 90656; 99212 ==

== ENCOUNTER 2024-12-31 12:27 | Outpatient (AMB) | payer MEDICARE, MEDICAID, SELFPAY ==
--- NOTE | 2024-12-31 13:10 | A.OFFVIS_ITS ---
Intake Visit Reasons: 3MGnRH/dexa/Labs(set) Intake Note: Patient Is Present for Eligard Inj/Dexa/psa/testo Results Urology Med: Prednisone, Abriateroine, Antibiotic Allergy:None Blood Thinner: Aspirin 12/05/2024- PSA- <0.10 Testosterone: 1 10/22/2024- Bone DEXA Scan Waste Duster Required: Yes Waste Duster Language: Mold Cooler Services: Waste Duster Present Accompanied by: Self / Same As Patient Allergies No Known Allergies Allergy (Verified 12/31/24 13:12) HPI Comments Details: Paul is a pleasant Tamazight-speaking male. He is a patient of Dr. Grimes. 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 07/06 - GnRH 06/26/24 - Prostate MRI - NAD prostate - confirms kristi disease. No evidence of bob disease. - switch from bicalutamide to abiraterone 06/06 Interval history Presented to pulmonary with shortness of breath Chest CT with pulmonary mass Bronchoscopy cytology shows cells consistent with metastatic prostate cancer PET- CT - 06/06 - positive pulmonary mass, para-aortic, external lymph nodes bilateral consistent with metastatic prostate cancer Prostate biopsy - 10/05 acute and chronic inflammation Initiated bicalutamide Elevated PSA 07/05 12.5, 05/06 49, 06/27/24 7.6 Repeat PSA 15.8 Prostate biopsy - 10/05 acute and chronic inflammation PFSH Medical History Pulmonary nodules Lymphadenopathy, mediastinal Thoracic aortic aneurysm (TAA) Depression Hyperlipemia HTN (hypertension) Diabetes Anemia Surgical History Hx of prostate biopsy Hx of umbilical hernia repair H/O colonoscopy Family History Sister Breast cancer Social History Household Members: None Housing: Apartment Are you a primary customer care assistant to a significant other at home: No Do you presently have visiting nurse or other home services: No Alcohol intake: former Patient Tobacco Use Status: Never used Tobacco service: No Current occupational status: disabled Review of Systems Const Denies chills and Denies fever(s) Card Reports no additional complaints and Denies syncope Resp Denies cough GI Denies abdominal pain and Denies heartburn Reports as per HPI and Denies change in libido Neuro Denies syncope Psych Denies change in libido Endo Denies change in libido Physical Exam Const General: cooperative, healthy appearing, comfortable and no acute distress Orientation/consciousness: patient oriented x3 HEENT Face and sinus: Yes normal facial exam Mouth: moist mucous membranes Neck Neck: Yes normal visual inspection, Yes full ROM and Yes trachea midline Chest Chest palpation & inspection: normal inspection of the chest Resp Effort & Inspection: normal respiratory effort, able to speak in complete sentences and no respiratory distress GI Inspection: Yes normal to inspection Back/Spine/Pelvis Cervical Spine: normal cervical lordosis Thoracic/Lumbar Spine: thoracic and lumbar spine normal to inspection Skin General skin exam: no rashes or lesions noted Neuro General: patient oriented x3, gait normal, tone normal and moves all extremities Extrem General: Yes normal to inspection and Yes capillary refill normal Office Meds Eligard (6 month) 45 mg (6 month) subcutaneous syringe Performing Provider: Lm Rico MD Per[facility] [place] [facility] Administered by: Mark Albright LPN on 12/31/24 13:31 Dose Route Admin Location Dispensed Lot Number Expiration Date [facility] Investigations Consultant 45 mg subcut right arm 45 mg [id number] 01/12/26 75792-984-27 [employer]. 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: Code(s): C61 - Malignant neoplasm of prostate; C77.1 - Secondary and unspecified malignant neoplasm of intrathoracic lymph nodes Category: Medical (2) Osteoporosis due to androgen therapy: Code(s): M81.8 - Other osteoporosis without current pathological fracture; T38.7X5A - Adverse effect of androgens and anabolic congeners, initial encounter Category: Medical Plan At [facility] Three-month follow-up lab work Refills Orders: Orders Testosterone, Total 3 Months C61 - Malignant neoplasm of prostate, C77.5 - Secondary and unspecified malignant neoplasm of intrapelvic lymph nodes Prostate Specific Antigen 3 Months C61 - Malignant neoplasm of prostate, C77.5 - Secondary and unspecified malignant neoplasm of intrapelvic lymph nodes AMB Leuprolide Injection - Practice Supplied Today C61 - Malignant neoplasm of prostate, C77.1 - Secondary and unspecified malignant neoplasm of intrathoracic lymph nodes, M81.8 - Other osteoporosis without current pathological fracture, T38.7X5A - Adverse effect of androgens and anabolic congeners, initial encounter Medications: New alendronate 70 mg PO QWEEK 13 tabs 3RF 90 days M81.8 - Other osteoporosis without current pathological fracture, T38.7X5A - Adverse effect of androgens and anabolic congeners, initial encounter Refilled abiraterone must be taken on empty stomach, at least 1 hr before or 2 hrs after a meal/food 1,000 mg (4 x 250 mg) PO DAILY 120 tabs 6RF 30 days M81.8 - Other osteoporosis without current pathological fracture, T38.7X5A - Adverse effect of androgens and anabolic congeners, initial encounter prednisone 2.5 mg PO BID 60 tabs 5RF 30 days C61 - Malignant neoplasm of prostate, C77.1 - Secondary and unspecified malignant neoplasm of intrathoracic lymph nodes, C77.2 - Secondary and unspecified malignant neoplasm of intra- abdominal lymph nodes Patient Instructions: This note is constructed using voice recognition software. While every effort has been made to ensure accuracy division order analyst errors may have been included. Imaging studies, laboratory and physical exam results were discussed and reviewed in detail. No major barriers to patient understanding were identified. An opportunity to ask questions regarding the treatment plan was provided. All questions were answered. The patient expressed understanding and agreement with the above treatment plan. The patient is aware they should contact our office by phone for worsening of their current condition or the appearance of new urologic symptoms. Compliance is encouraged with any medications and followup testing that is ordered. It is a privilege to participate in the urologic care of your patient. If you have any questions or concerns regarding treatment for the above conditions, or other urologic issues, please do not hesitate to contact me. The office telephone contact is [phone]. 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
== END 2024-12-31 13:38 | disposition home or self-care (01) ==
LOC: HO.HUSH 12:28
PROVIDERS: PCP Internal Medicine; Visit Provider Urology
DX: C61 Malignant neoplasm of prostate (principal); C77.1 Secondary and unspecified malignant neoplasm of intrathoracic lymph nodes; M81.8 Other osteoporosis without current pathological fracture; T38.7X5A Adverse effect of androgens and anabolic congeners, initial encounter
CPT/HCPCS: 99213

== ENCOUNTER → 2024-12-31 12:27 | Outpatient (BNVA) | payer MEDICARE, MEDICAID, SELFPAY | PROVIDERS: PCP Internal Medicine; Visit Provider Urology | DX: Z51.11 Encounter for antineoplastic chemotherapy (principal); C61 Malignant neoplasm of prostate; C77.1 Secondary and unspecified malignant neoplasm of intrathoracic lymph nodes; M81.8 Other osteoporosis without current pathological fracture; T38.7X5A Adverse effect of androgens and anabolic congeners, initial encounter | CPT/HCPCS: 96402; 99212; J9217 ==